=== PATIENT | female | born 1945 | race Caucasian/White ===

== ENCOUNTER → 2018-04-27 | Outpatient (CLI) | payer BC, MEDICARE ==
--- NOTE | 2018-04-28 07:39 | CT ---
EXAMINATION TYPE: CT sinus wo con DATE OF EXAM: 04/27/2018 COMPARISON: NONE HISTORY: VILLATORO WITH PRESSURE AND CONGESTION per patient. Chronic sinusitis per order CT DLP: 644 mGycm. Automated Exposure Control for Dose Reduction was Utilized. TECHNIQUE: CT scan of the sinuses is performed without contrast, axial images are obtained, coronal r eformatted images are also reviewed. FINDINGS: The paranasal sinuses including the frontal, ethmoid, sphenoid, and maxillary sinuses bila terally are well-aerated without abnormal opacification. The ostiomeatal complex is patent bilateral ly on the coronal images. Visualized portion of mastoid air cells show no abnormal opacification. The globes are intact bilate rally. Some vascular calcification distal internal carotid artery supraclinoid segments is present. V isualized brain parenchyma shows mild age-related atrophy and chronic small vessel ischemic change. IMPRESSION: The sinuses are clear and the ostiomeatal complex is patent bilaterally.
== END | disposition home or self-care (01) ==
LOC: RADCTMAIN 18:24
PROVIDERS: ATTEND Family Medicine
DX: J32.9 Chronic sinusitis, unspecified (principal)
CPT/HCPCS: 70486

== ENCOUNTER → 2018-05-30 | Outpatient (CLI) | payer BC, MEDICARE ==
--- NOTE | 2018-05-31 13:38 | MM ---
Reason for exam: screening (asymptomatic). Last mammogram was performed 12 years and 5 months ago. History: Patient is postmenopausal. Benign excisional biopsy of the right breast, March 29, 2000. Benign ultrasound-guided cyst aspiration of the right breast, February 16, 2000. Cyst aspiration of the right breast. Physical Findings: A clinical breast exam by your physician is recommended on an annual basis and results should be correlated with mammographic findings. MG 3D Screening Mammo W/Cad Bilateral CC and MLO view(s) were taken. Prior study comparison: January 04, 2006, CAD bilateral diagnostic mammogram. December 29, 2004, bilateral screening mammogram. The breast tissue is extremely dense which could obscure a lesion on mammography. There is no discrete abnormality. Diffuse bilateral punctate and oil cyst calcifications. ASSESSMENT: Benign, BI-RAD 2 RECOMMENDATION: Routine screening mammogram of both breasts in 1 year. Patient should continue monthly self breast exams. A negative report should not preclude additional follow up of suspicious palpable abnormalities.
== END | disposition home or self-care (01) ==
LOC: RADMAMWWP 13:45
PROVIDERS: ATTEND Family Medicine
DX: Z12.31 Encounter for screening mammogram for malignant neoplasm of breast (principal)
CPT/HCPCS: 77063; 77067

== ENCOUNTER 2019-05-26 23:07 | Inpatient (IN) | payer BC, MEDICARE ==
--- NOTE | 2019-05-26 23:31 | ED ---
GI Bleed HPI - General Chief complaint: GI Bleed Stated complaint: Near Syncope Time Seen by Provider: 05/26/19 23:19 Source: patient, EMS Mode of arrival: EMS Limitations: no limitations - History of Present Illness Initial comments: This patient is 73-year-old woman who presents to be evaluated after she had an episode of coffee-ground emesis tonight. The patient relates that she has been having some mild periumbilical burning for about 3-4 days. She felt that this was due to the fact that she uses Pepcid daily but this was not refilled so she had been out of the medication from May 19 to May 23. The patient felt nauseated tonight and then had an episode of vomiting which contained coffee- ground material. She states it was only one episode of vomiting. She has not noted any change in bowel movements, the last bone she had was yesterday and states that was normal. She is not having symptoms of anemia, including no dyspnea, diaphoresis, chest pain, palpitations or syncope. MD complaint: coffee ground emesis Onset/Timin -: hour(s) Radiation: none Quality: cramping Consistency: constant Improves with: none Worsens with: none Associated Symptoms: abdominal pain, vomiting Treatments Prior to Arrival: none - Related Data Home Medications Medication Instructions Recorded Confirmed Cholecalciferol [Vitamin D3 (25 5,000 unit PO DAILY 05/27/19 05/27/19 Mcg = 1000 Iu)] Magnesium Oxide [Mag-Ox] 250 mg PO BID 05/27/19 05/27/19 Potassium 99 mg PO BID 05/27/19 05/27/19 Ranitidine HCl [Zantac] 150 mg PO BID 05/27/19 05/27/19 Teriparatide [Forteo] 20 mcg SQ DAILY 05/27/19 05/27/19 oxyCODONE-APAP 7.5-325MG [Percocet 1 tab PO Q6H PRN 05/27/19 05/27/19 7.5-325 mg] Allergies Allergy/AdvReac Type Severity Reaction Status Date / Time alendronate sodium Allergy Unknown Verified 05/27/19 00:25 [From Fosamax] erythromycin base Allergy Unknown Verified 05/27/19 00:25 gatifloxacin [From Tequin] Allergy Unknown Verified 05/27/19 00:25 Penicillins Allergy Unknown Verified 05/27/19 00:25 tetracycline Allergy Unknown Verified 05/27/19 00:25 Review of Systems ROS Statement: Those systems with pertinent positive or pertinent negative responses have been documented in the HPI. ROS Other: All systems not noted in ROS Statement are negative. Constitutional: Denies: fever, chills Respiratory: Denies: cough, dyspnea Cardiovascular: Denies: chest pain, palpitations, syncope Gastrointestinal: Reports: as per HPI, abdominal pain, nausea, vomiting, hematemesis. Denies: diarrhea, melena, hematochezia Genitourinary: Denies: dysuria, hematuria Musculoskeletal: Denies: back pain Skin: Denies: rash Neurological: Denies: headache, weakness Hematological/Lymphatic: Denies: easy bleeding Past Medical History Past Medical History: Osteoarthritis (OA) Additional Past Medical History / Comment(s): Emphysema History of Any Multi-Drug Resistant Organisms: None Reported Additional Past Surgical History / Comment(s): Eye surgery Past Psychological History: No Psychological Hx Reported Smoking Status: Current every day smoker Past Alcohol Use History: Rare Past Drug Use History: None Reported General Exam Limitations: no limitations General appearance: alert, in no apparent distress Head exam: Present: atraumatic, normocephalic Eye exam: Present: normal appearance. Absent: scleral icterus, conjunctival injection ENT exam: Present: normal oropharynx Respiratory exam: Present: wheezes (Trace expiratory wheeze.). Absent: respiratory distress, rales, rhonchi, stridor Cardiovascular Exam: Present: regular rate, normal rhythm, systolic murmur (Grade 3/6 systolic ejection murmur). Absent: diastolic murmur, rubs, gallop GI/Abdominal exam: Present: soft. Absent: distended, tenderness, guarding, rebound, rigid Extremities exam: Present: normal inspection, normal capillary refill. Absent: pedal edema, calf tenderness Back exam: Present: normal inspection. Absent: CVA tenderness (R), CVA tenderness (L) Neurological exam: Present: alert Skin exam: Present: warm, dry, intact, normal color. Absent: rash Course Vital Signs 05/26/19 05/27/19 23:08 00:26 Temperature 97.9 F Pulse Rate 98 84 Respiratory 18 17 Rate Blood Pressure 103/61 84/49 O2 Sat by Pulse 100 96 Oximetry Medical Decision Making - Lab Data Result diagrams: 05/26/19 23:20 05/26/19 23:20 Lab Results 05/26/19 05/26/19 05/26/19 Range/Units 23:20 23:20 23:20 WBC 5.9 (3.8-10.6) k/uL RBC 2.11 L (3.80-5.40) m/uL Hgb 6.4 L* (11.4-16.0) gm/dL Hct 20.2 L (34.0-46.0) % MCV 95.3 (80.0-100.0) fL MCH 30.4 (25.0-35.0) pg MCHC 31.9 (31.0-37.0) g/dL RDW 13.5 (11.5-15.5) % Plt Count 185 (150-450) k/uL Neutrophils % 57 % Lymphocytes % 32 % Monocytes % 6 % Eosinophils % 2 % Basophils % 1 % Neutrophils # 3.4 (1.3-7.7) k/uL Lymphocytes # 1.9 (1.0-4.8) k/uL Monocytes # 0.3 (0-1.0) k/uL Eosinophils # 0.1 (0-0.7) k/uL Basophils # 0.0 (0-0.2) k/uL PT (9.0-12.0) sec INR (<1.2) APTT (22.0-30.0) sec Sodium 138 (137-145) mmol/L Potassium 4.2 (3.5-5.1) mmol/L Chloride 106 (98-107) mmol/L Carbon Dioxide 27 (22-30) mmol/L Anion Gap 5 mmol/L BUN 35 H (7-17) mg/dL Creatinine 1.23 H (0.52-1.04) mg/dL Est GFR (CKD-EPI)AfAm 51 (>60 ml/min/1.73 sqM) Est GFR (CKD-EPI)NonAf 44 (>60 ml/min/1.73 sqM) Glucose 110 H (74-99) mg/dL Plasma Lactic Acid Asher 3.0 H* (0.7-2.0) mmol/L Calcium 8.0 L (8.4-10.2) mg/dL Total Bilirubin 0.2 (0.2-1.3) mg/dL AST 30 (14-36) U/L ALT 17 (9-52) U/L Alkaline Phosphatase 55 (38-126) U/L Troponin I (0.000-0.034) ng/mL Total Protein 4.4 L (6.3-8.2) g/dL Albumin 2.5 L (3.5-5.0) g/dL Stool Occult Blood (Negative) Blood Type Blood Type Recheck Antibody Screen Spec Expiration Date 05/26/19 05/26/19 05/26/19 Range/Units 23:20 23:20 23:20 WBC (3.8-10.6) k/uL RBC (3.80-5.40) m/uL Hgb (11.4-16.0) gm/dL Hct (34.0-46.0) % MCV (80.0-100.0) fL MCH (25.0-35.0) pg MCHC (31.0-37.0) g/dL RDW (11.5-15.5) % Plt Count (150-450) k/uL Neutrophils % % Lymphocytes % % Monocytes % % Eosinophils % % Basophils % % Neutrophils # (1.3-7.7) k/uL Lymphocytes # (1.0-4.8) k/uL Monocytes # (0-1.0) k/uL Eosinophils # (0-0.7) k/uL Basophils # (0-0.2) k/uL PT 11.0 (9.0-12.0) sec INR 1.0 (<1.2) APTT 19.4 L (22.0-30.0) sec Sodium (137-145) mmol/L Potassium (3.5-5.1) mmol/L Chloride (98-107) mmol/L Carbon Dioxide (22-30) mmol/L Anion Gap mmol/L BUN (7-17) mg/dL Creatinine (0.52-1.04) mg/dL Est GFR (CKD-EPI)AfAm (>60 ml/min/1.73 sqM) Est GFR (CKD-EPI)NonAf (>60 ml/min/1.73 sqM) Glucose (74-99) mg/dL Plasma Lactic Acid Asher (0.7-2.0) mmol/L Calcium (8.4-10.2) mg/dL Total Bilirubin (0.2-1.3) mg/dL AST (14-36) U/L ALT (9-52) U/L Alkaline Phosphatase (38-126) U/L Troponin I 0.038 H* (0.000-0.034) ng/mL Total Protein (6.3-8.2) g/dL Albumin (3.5-5.0) g/dL Stool Occult Blood Positive H (Negative) Blood Type Blood Type Recheck Antibody Screen Spec Expiration Date 05/26/19 Range/Units 23:20 WBC (3.8-10.6) k/uL RBC (3.80-5.40) m/uL Hgb (11.4-16.0) gm/dL Hct (34.0-46.0) % MCV (80.0-100.0) fL MCH (25.0-35.0) pg MCHC (31.0-37.0) g/dL RDW (11.5-15.5) % Plt Count (150-450) k/uL Neutrophils % % Lymphocytes % % Monocytes % % Eosinophils % % Basophils % % Neutrophils # (1.3-7.7) k/uL Lymphocytes # (1.0-4.8) k/uL Monocytes # (0-1.0) k/uL Eosinophils # (0-0.7) k/uL Basophils # (0-0.2) k/uL PT (9.0-12.0) sec INR (<1.2) APTT (22.0-30.0) sec Sodium (137-145) mmol/L Potassium (3.5-5.1) mmol/L Chloride (98-107) mmol/L Carbon Dioxide (22-30) mmol/L Anion Gap mmol/L BUN (7-17) mg/dL Creatinine (0.52-1.04) mg/dL Est GFR (CKD-EPI)AfAm (>60 ml/min/1.73 sqM) Est GFR (CKD-EPI)NonAf (>60 ml/min/1.73 sqM) Glucose (74-99) mg/dL Plasma Lactic Acid Asher (0.7-2.0) mmol/L Calcium (8.4-10.2) mg/dL Total Bilirubin (0.2-1.3) mg/dL AST (14-36) U/L ALT (9-52) U/L Alkaline Phosphatase (38-126) U/L Troponin I (0.000-0.034) ng/mL Total Protein (6.3-8.2) g/dL Albumin (3.5-5.0) g/dL Stool Occult Blood (Negative) Blood Type O Positive Blood Type Recheck CABO Indicated Antibody Screen NEGATIVE Spec Expiration Date 05/29/20192319 - EKG Data -: EKG Interpreted by Me EKG shows normal: sinus rhythm, axis (Normal), intervals (Normal) Rate: normal (Rate 90 bpm) Interpretation: LVH (With repolarization abnormality) Disposition Clinical Impression: GI bleeding, Anemia, Elevated troponin I level, Lactic acidosis Disposition: ADMITTED IP TO THIS [facility] Condition: Fair
[2019-05-26 23:50] LABS: Albumin 2.5 g/dL (3.5-5.0); Basophils % (A) 1 %; Eosinophils # (A) 0.1 k/uL (0-0.7); Eosinophils % (A) 2 %; HCT 20.2 % (34.0-46.0); Lymphocytes # (A) 1.9 k/uL (1.0-4.8); Lymphocytes % (A) 32 %; MCH 30.4 pg (25.0-35.0); MCHC 31.9 g/dL (31.0-37.0); MCV 95.3 fL (80.0-100.0); Mean Platelet Volume 6.8; Monocytes # (A) 0.3 k/uL (0-1.0); Monocytes % (A) 6 %; Neutrophils # (A) 3.4 k/uL (1.3-7.7); Neutrophils % (A) 57 %; Platelet Count 185 k/uL (150-450); Potassium 4.2 mmol/L (3.5-5.1); RBC 2.11 m/uL (3.80-5.40); RDW 13.5 % (11.5-15.5); Total Bilirubin 0.2 mg/dL (0.2-1.3); Total Protein 4.4 g/dL (6.3-8.2); WBC 5.9 k/uL (3.8-10.6)
[2019-05-26 23:55] LABS: HGB 6.4 gm/dL (11.4-16.0)
[2019-05-26] MEDS ORDERED: PANTOPRAZOLE 40 MG/10 ML VIAL IVP STA (23:59)
[2019-05-27] MEDS ORDERED: ACETAMINOPHEN TAB 325 MG TAB PO PRN (00:01)
[2019-05-27] MEDS ORDERED: NALOXONE 0.4 MG/ML 1 ML VIAL IV PRN (00:01)
[2019-05-27 00:21] LABS: Partial Thromboplastin Time 19.4 sec (22.0-30.0)
[2019-05-27] MEDS: SODIUM CHLORIDE 0.9% 1,000 ML IV SCH ×2 (00:21→16:47)
[2019-05-27] MEDS ORDERED: SODIUM CHLORIDE 0.9% 1,200 ML IV ONE (00:33)
[2019-05-27 06:41] LABS: Basophils % (A) 1 %; Eosinophils # (A) 0.1 k/uL (0-0.7); Eosinophils % (A) 1 %; HCT 22.1 % (34.0-46.0); HGB 7.4 gm/dL (11.4-16.0); Lymphocytes # (A) 1.7 k/uL (1.0-4.8); Lymphocytes % (A) 32 %; MCH 31.3 pg (25.0-35.0); MCHC 33.4 g/dL (31.0-37.0); MCV 93.7 fL (80.0-100.0); Mean Platelet Volume 7.9; Monocytes # (A) 0.3 k/uL (0-1.0); Monocytes % (A) 6 %; Neutrophils % (A) 58 %; Platelet Count 135 k/uL (150-450); RBC 2.36 m/uL (3.80-5.40); WBC 5.2 k/uL (3.8-10.6)
[2019-05-27] MEDS: oxyCODONE-APAP 7.5-325MG 1 EACH TAB PO PRN ×2 (08:23→22:46)
[2019-05-27] MEDS: CHOLECALCIFEROL 1,000 UNIT TAB PO SCH (08:24)
[2019-05-27] MEDS: PANTOPRAZOLE 40 MG/10 ML VIAL IV SCH ×2 (08:24→20:15)
[2019-05-27] MEDS ORDERED: NON-FORMULARY DRUG (Magnesium Oxide 250 MG) PO SCH (09:00)
[2019-05-27] MEDS ORDERED: NON-FORMULARY DRUG (Potassium [Potassium] 99 MG) PO SCH (09:00)
[2019-05-27] MEDS ORDERED: FAMOTIDINE 20 MG TAB PO SCH (09:00)
[2019-05-27] MEDS: Teriparatide [Forteo] 20 MCG SQ SCH (11:37)
[2019-05-27 12:51] LABS: Basophils # (A) 0.1 k/uL (0-0.2); Basophils % (A) 1 %; Eosinophils # (A) 0.1 k/uL (0-0.7); Eosinophils % (A) 1 %; HGB 8.2 gm/dL (11.4-16.0); Lymphocytes # (A) 2.2 k/uL (1.0-4.8); Lymphocytes % (A) 33 %; Mean Platelet Volume 7.6; Monocytes # (A) 0.3 k/uL (0-1.0); Monocytes % (A) 4 %; Neutrophils % (A) 59 %; Platelet Count 147 k/uL (150-450); RBC 2.66 m/uL (3.80-5.40); RDW 15.6 % (11.5-15.5); WBC 6.7 k/uL (3.8-10.6)
--- NOTE | 2019-05-27 13:19 | P.CRDCN ---
History of Present Illness History of present illness: This is a pleasant 73-year-old female past medical history significant for gastroesophageal reflux disease, osteoarthritis and COPD. She has a chronic daily smoker. She denies history of coronary artery disease, hypertension or dyslipidemia. She does not follow with a pierogi maker for any reason. We have been asked to see her in consultation secondary to mildly elevated troponin. She states she has been out of her uvib-add-xeyhpri antiacids for the previous 2 days and she has felt some vague abdominal discomfort that yesterday she had an episode of vomiting. The patient is unsure of the events leading up to this however daughter told her there was blood in the vomit. She is not clear whether it was bright red blood or coffee-ground. ER documentation indicates it was coffee-ground material. This happened just one time and then she came to the hospital. Hemoglobin on arrival was 6.4. She underwent a transfusion of one unit of packed red blood cells repeat hemoglobin this morning was 7.4 and then again this afternoon was 8.2. She denies having symptoms of chest discomfort, shortness of breath, dizziness or palpitations. EKG reveals sinus mechanism with LVH criteria with nonspecific ST modalities. Laboratory data has revealed, sodium 138, potassium 4.2, creatinine 1.23, lactic asked on admission 3.0 with repeat was 0.5, initial troponin was 0.038 second was 0.123. She currently takes no daily cardiac medications. At the time of my exam: CONSTITUTIONAL: Denies fever. Denies chills. EYES: Denies blurred vision. Denies vision changes. Denies eye pain. EARS, NOSE, MOUTH & THROAT: Denies headache. Denies sore throat. Denies ear pain. CARDIOVASCULAR: Denies chest pain. Denies shortness of breath. Denies orthopnea. Denies PND. Denies palpitations. RESPIRATORY: Denies cough. GASTROINTESTINAL: Denies abdominal pain. Denies diarrhea. Denies constipation. Denies nausea. Denies vomiting. MUSCULOSKELETAL: Denies myalgias. INTEGUMENTARY: Denies pruitis. Denies rash. NEUROLOGIC: Denies numbness. Denies tingling. Denies weakness. PSYCHIATRIC: Denies anxiety. Denies depression. ENDOCRINE: Denies fatigue. Denies weight change. Denies polydipsia. Denies polyurina. GENITOURINARY: Denies burning, hematuria or urgency with micturation. HEMATOLOGIC: Denies history of anemia. Denies bleeding. Blood pressure 106/62 heart rate 78 afebrile maintaining oxygen saturation on room air GENERAL: This is a 73-year-old female in no apparent distress at the time of my examination. Frail. HEENT: Head is atraumatic, normocephalic. Pupils are equal, round. Sclerae anicteric. Conjunctivae are clear. Mucous membranes of the mouth are moist. Neck is supple. There is no jugular venous distention. No carotid bruit is heard. LUNGS: Clear to auscultation no wheezes, rales or rhonchi. No chest wall tenderness is noted on palpation or with deep breathing. HEART: Regular rate and rhythm with systolic ejection murmur at the left sternal border, no rubs or gallops. S1 and S2 heard. ABDOMEN: Soft, nontender. Bowel sounds are heard. No organomegaly noted. EXTREMITIES: No evidence of peripheral edema and no calf tenderness noted. VASCULAR: Radial and dorsalis pedis pulses palpated, no evidence of clubbing. NEUROLOGIC: Patient is awake, alert and oriented x3. ASSESSMENT Acute GI bleeding requiring blood transfusion Troponin elevation secondary to acute blood loss anemia causing oxygen supply demand mismatch representing a type II event Systolic murmur History of COPD Chronic nicotine dependence PLAN Patient has no symptoms suggestive of angina. Troponin elevation secondary to acute blood loss anemia representing a type II coronary event supply and demand mismatch. Continue to obtain a third troponin to assess trend. Obtain 2-D echocardiogram and Doppler study to assess cardiac structure and function. Initiated on Lopressor 25 mg twice a day. Check lipid profile. We will continue to follow make recommendations accordingly. Thank you kindly for this consultation. Nurse Practitioner note has been reviewed, I agree with a documented findings and plan of care. Patient was seen and examined. Past Medical History Past Medical History: Osteoarthritis (OA) Additional Past Medical History / Comment(s): Emphysema History of Any Multi-Drug Resistant Organisms: None Reported Additional Past Surgical History / Comment(s): Eye surgery Past Psychological History: No Psychological Hx Reported Smoking Status: Current every day smoker Past Alcohol Use History: Rare Past Drug Use History: None Reported - Past Family History Mother Family Medical History: No Reported History Father Family Medical History: Cancer Medications and Allergies Home Medications Medication Instructions Recorded Confirmed Type Cholecalciferol [Vitamin D3 (25 5,000 unit PO DAILY 05/27/19 05/27/19 History Mcg = 1000 Iu)] Magnesium Oxide [Mag-Ox] 250 mg PO BID 05/27/19 05/27/19 History Potassium 99 mg PO BID 05/27/19 05/27/19 History Ranitidine HCl [Zantac] 150 mg PO BID 05/27/19 05/27/19 History Teriparatide [Forteo] 20 mcg SQ DAILY 05/27/19 05/27/19 History oxyCODONE-APAP 7.5-325MG [Percocet 1 tab PO Q6H PRN 05/27/19 05/27/19 History 7.5-325 mg] Allergies Allergy/AdvReac Type Severity Reaction Status Date / Time alendronate sodium Allergy Unknown Verified 05/27/19 00:25 [From Fosamax] erythromycin base Allergy Unknown Verified 05/27/19 00:25 gatifloxacin [From Tequin] Allergy Unknown Verified 05/27/19 00:25 Penicillins Allergy Unknown Verified 05/27/19 00:25 tetracycline Allergy Unknown Verified 05/27/19 00:25 Physical Exam Vitals: Vital Signs Temp Pulse Pulse Resp BP BP Pulse Ox 05/27/19 08:00 99.2 F 78 18 102/64 98 05/27/19 05:15 99.1 F 81 15 97/61 100 05/27/19 04:00 99.2 F 85 15 96/61 99 05/27/19 03:30 99.2 F 84 15 96/61 98 05/27/19 03:00 99.3 F 88 15 95/62 99 05/27/19 02:50 99.1 F 85 18 90/55 05/27/19 01:05 98.3 F 92 17 106/61 94 L 05/27/19 01:01 97.6 F 88 18 102/62 98 05/27/19 00:26 84 17 84/49 96 05/26/19 23:08 97.9 F 98 18 103/61 100 Intake and Output 05/26/19 05/27/19 05/27/19 22:59 06:59 14:59 Intake Total 640 232 Balance 640 232 Intake: IV 10 Invasive Line 1 10 Intake, IV Titration 320 Amount Sodium Chloride 0.9% 1, 320 000 ml @ 80 mls/hr IV . [id number] [facility] Rx#:[id number] Oral 232 Blood Product 310 Rc As-1 Unit 310 [id number] Other: Voiding Method Toilet # Voids 3 Weight 41.3 kg Results 05/27/19 12:31 05/26/19 23:20 Cardiac Enzymes 05/26/19 05/26/19 Range/Units 23:20 23:20 AST 30 (14-36) U/L Troponin I 0.038 H* (0.000-0.034) ng/mL Coagulation 05/26/19 Range/Units 23:20 PT 11.0 (9.0-12.0) sec APTT 19.4 L (22.0-30.0) sec CBC 05/26/19 05/27/19 Range/Units 23:20 06:20 WBC 5.9 5.2 (3.8-10.6) k/uL RBC 2.11 L 2.36 L (3.80-5.40) m/uL Hgb 6.4 L* 7.4 L (11.4-16.0) gm/dL Hct 20.2 L 22.1 L (34.0-46.0) % Plt Count 185 135 L (150-450) k/uL Comprehensive Metabolic Panel 05/26/19 Range/Units 23:20 Sodium 138 (137-145) mmol/L Potassium 4.2 (3.5-5.1) mmol/L Chloride 106 (98-107) mmol/L Carbon Dioxide 27 (22-30) mmol/L BUN 35 H (7-17) mg/dL Creatinine 1.23 H (0.52-1.04) mg/dL Glucose 110 H (74-99) mg/dL Calcium 8.0 L (8.4-10.2) mg/dL AST 30 (14-36) U/L ALT 17 (9-52) U/L Alkaline Phosphatase 55 (38-126) U/L Total Protein 4.4 L (6.3-8.2) g/dL Albumin 2.5 L (3.5-5.0) g/dL Current Medications Generic Name Dose Route Start Last Admin Trade Name Freq PRN Reason Stop Dose Admin Acetaminophen 650 mg 05/27/19 00:01 Tylenol Tab PO Q6HR PRN Mild Pain or Fever > 100.5 Cholecalciferol 5,000 unit 05/27/19 09:00 05/27/19 08:24 Vitamin D3 (25 Mcg = 1000 Iu) PO 5,000 unit DAILY ANN Administration Famotidine 20 mg 05/27/19 09:00 05/27/19 08:24 Pepcid PO 20 mg BID ANN Administration Sodium Chloride 1,000 mls @ 80 mls/hr 05/27/19 00:15 05/27/19 00:21 Saline 0.9% IV 80 mls/hr .[id number] ANN Administration Naloxone HCl 0.2 mg 05/27/19 00:01 Narcan IV Q2M PRN Opioid Reversal Teriparatide [Forteo 20 mcg 05/27/19 09:00 ] 20 Mcg SQ DAILY ANN Ondansetron HCl 4 mg 05/27/19 00:01 Zofran IVP Q8HR PRN Nausea And Vomiting Oxycodone/Acetaminophen 1 each 05/27/19 00:34 05/27/19 08:23 Percocet 7.5-325 PO 1 each Q6H PRN Administration Pain Pantoprazole Sodium 40 mg 05/27/19 09:00 05/27/19 08:24 Protonix IV 40 mg DAILY ANN Administration Intake and Output 05/26/19 05/27/19 05/27/19 22:59 06:59 14:59 Intake Total 640 232 Balance 640 232 Intake: IV 10 Invasive Line 1 10 Intake, IV Titration 320 Amount Sodium Chloride 0.9% 1, 320 000 ml @ 80 mls/hr IV . [id number] ANN Rx#:[id number] Oral 232 Blood Product 310 Rc As-1 Unit 310 [id number] Other: Voiding Method Toilet # Voids 3 Weight 41.3 kg 05/27/19 06:20 05/26/19 23:20
[2019-05-27 13:45] LABS: Cholesterol 83 mg/dL (<200); HDL Cholesterol 28 mg/dL (40-60); LDL Cholesterol,Calculated 35 mg/dL (0-99); Triglycerides 99 mg/dL (<150)
--- NOTE | 2019-05-27 14:43 | P.HPIM ---
History of Present Illness H&P Date: 05/27/19 Chief Complaint: Coffee-ground emesis History of presenting complaint: This is a pleasant 73-year-old patient of Dr. qiu from [place]. Chronic stable medical conditions include osteoarthritis, emphysema, acid reflux. Patient long-standing smoker. Patient also sometimes takes Advil. Patient yesterday evening had coffee-ground emesis. No fresh blood. No abdominal pain. No fever no chills. No further episode. Patient occasionally takes Advil for arthritis. Does feel a bit tired and rundown. No dizziness or lightheadedness. Patient daughter is present. Admitted for the same. Started on IV fluids. GI was consulted. Review of systems: GEN.: Tired EYES: None HEENT: None NECK: None RESPIRATORY: None CARDIOVASCULAR: None GASTROINTESTINAL: As above GENITOURINARY: None MUSCULOSKELETAL: Pain in the joints LYMPHATICS: None HEMATOLOGICAL: As above PSYCHIATRY: None NEUROLOGICAL: None Past medical history: Osteoarthritis, emphysema, acid reflux Social history: Alcohol occasional. Smokes a pack a day for 55 years. Lives with her daughter. Family history: Reviewed, noncontributory to presentation Physical examination: VITAL SIGNS: 97.9, 98, 18, 103/61, 100% room air GENERAL: BMI 16.7, sitting on bed, tired appearing. EYES: Pupils equal. Conjunctiva palel. HEENT: External appearance of nose and ears normal, oral cavity grossly normal. NECK: JVD not raised; masses not palpable. HEART: First and second heart sounds are normal; no edema. LUNGS: Respiratory rate normal; diminished breath sounds. ABDOMEN: Soft, nontender, liver spleen not palpable, no masses palpable. PSYCH: Alert and oriented x3; mood and affect normal. NEUROLOGICAL: Cranial nerves grossly intact; no facial asymmetry, power and sensation grossly intact. LYMPHATICS: No lymph nodes palpable in the axilla and neck MUSCULOSKELETAL: Positive subcutaneous fat INVESTIGATIONS, reviewed in the clinical context: White count 5.9 hemoglobin 6.4 potassium 4.2 BUN 35 creatinine 1.23 Lactic acid 3 and repeat 0.5 Troponin 0.038, 0.123 Assessment: Acute upper GI bleed in a patient who does smoke and also takes NSAIDs occasionally -Acute acute blood loss anemia though the given the severity of his anemia I suspect they may be chronic blood loss 2 -Primary osteoarthritis -Emphysema and a current smoker -Chronic GERD -Severe protein calorie malnutrition with a BMI of 16.7 -Renal failure, unknown if there is a chronic component -Lactic acidosis likely type II -Troponin positive, likely from hemodynamic mismatch. No evidence of acute coronary syndrome Plan: Patient did get a unit of blood. GI was consulted. They're planning to do endoscopy tomorrow. H&H will be done. PPI started. We'll give IV fluids. Repeat CBC and electrolytes. Also renal ultrasound. Care was discussed with the patient daughter the bedside. Smoke cessation counseling: This was done with the patient. Patient be given a nicotine patch. More than 3 minutes was spent on this. Past Medical History Past Medical History: Osteoarthritis (OA) Additional Past Medical History / Comment(s): Emphysema History of Any Multi-Drug Resistant Organisms: None Reported Additional Past Surgical History / Comment(s): Eye surgery Past Psychological History: No Psychological Hx Reported Smoking Status: Current every day smoker Past Alcohol Use History: Rare Past Drug Use History: None Reported - Past Family History Mother Family Medical History: No Reported History Father Family Medical History: Cancer Medications and Allergies Home Medications Medication Instructions Recorded Confirmed Type Cholecalciferol [Vitamin D3 (25 5,000 unit PO DAILY 05/27/19 05/27/19 History Mcg = 1000 Iu)] Magnesium Oxide [Mag-Ox] 250 mg PO BID 05/27/19 05/27/19 History Potassium 99 mg PO BID 05/27/19 05/27/19 History Ranitidine HCl [Zantac] 150 mg PO BID 05/27/19 05/27/19 History Teriparatide [Forteo] 20 mcg SQ DAILY 05/27/19 05/27/19 History oxyCODONE-APAP 7.5-325MG [Percocet 1 tab PO Q6H PRN 05/27/19 05/27/19 History 7.5-325 mg] Allergies Allergy/AdvReac Type Severity Reaction Status Date / Time alendronate sodium Allergy Unknown Verified 05/27/19 00:25 [From Fosamax] erythromycin base Allergy Unknown Verified 05/27/19 00:25 gatifloxacin [From Tequin] Allergy Unknown Verified 05/27/19 00:25 Penicillins Allergy Unknown Verified 05/27/19 00:25 tetracycline Allergy Unknown Verified 05/27/19 00:25 Physical Exam Vitals: Vital Signs Temp Pulse Pulse Resp BP BP Pulse Ox 07/21/19 12:00 98.9 F 78 18 106/62 99 05/27/19 08:00 99.2 F 78 18 102/64 98 05/27/19 05:15 99.1 F 81 15 97/61 100 05/27/19 04:00 99.2 F 85 15 96/61 99 05/27/19 03:30 99.2 F 84 15 96/61 98 05/27/19 03:00 99.3 F 88 15 95/62 99 05/27/19 02:50 99.1 F 85 18 90/55 05/27/19 01:05 98.3 F 92 17 106/61 94 L 05/27/19 01:01 97.6 F 88 18 102/62 98 05/27/19 00:26 84 17 84/49 96 05/26/19 23:08 97.9 F 98 18 103/61 100 Intake and Output 05/26/19 05/27/19 05/27/19 22:59 06:59 14:59 Intake Total 640 232 Balance 640 232 Intake: IV 10 Invasive Line 1 10 Intake, IV Titration 320 Amount Sodium Chloride 0.9% 1, 320 000 ml @ 80 mls/hr IV . [id number] [facility] Rx#:[id number] Oral 232 Blood Product 310 Rc As-1 Unit 310 [id number] Other: Voiding Method Toilet # Voids 3 Weight 41.3 kg 41.3 kg Results CBC & Chem 7: 05/27/19 12:31 05/26/19 23:20 Labs: Abnormal Lab Results - Last 24 Hours (Table) 05/26/19 05/26/19 05/26/19 Range/Units 23:20 23:20 23:20 RBC 2.11 L (3.80-5.40) m/uL Hgb 6.4 L* (11.4-16.0) gm/dL Hct 20.2 L (34.0-46.0) % RDW (11.5-15.5) % Plt Count (150-450) k/uL APTT (22.0-30.0) sec BUN 35 H (7-17) mg/dL Creatinine 1.23 H (0.52-1.04) mg/dL Glucose 110 H (74-99) mg/dL Plasma Lactic Acid Asher 3.0 H* (0.7-2.0) mmol/L Calcium 8.0 L (8.4-10.2) mg/dL Troponin I (0.000-0.034) ng/mL Total Protein 4.4 L (6.3-8.2) g/dL Albumin 2.5 L (3.5-5.0) g/dL HDL Cholesterol (40-60) mg/dL Stool Occult Blood (Negative) Crossmatch 05/26/19 05/26/19 05/26/19 Range/Units 23:20 23:20 23:20 RBC (3.80-5.40) m/uL Hgb (11.4-16.0) gm/dL Hct (34.0-46.0) % RDW (11.5-15.5) % Plt Count (150-450) k/uL APTT 19.4 L (22.0-30.0) sec BUN (7-17) mg/dL Creatinine (0.52-1.04) mg/dL Glucose (74-99) mg/dL Plasma Lactic Acid Asher (0.7-2.0) mmol/L Calcium (8.4-10.2) mg/dL Troponin I 0.038 H* (0.000-0.034) ng/mL Total Protein (6.3-8.2) g/dL Albumin (3.5-5.0) g/dL HDL Cholesterol (40-60) mg/dL Stool Occult Blood Positive H (Negative) Crossmatch 05/26/19 05/27/19 05/27/19 Range/Units 23:20 03:33 06:20 RBC 2.36 L (3.80-5.40) m/uL Hgb 7.4 L (11.4-16.0) gm/dL Hct 22.1 L (34.0-46.0) % RDW (11.5-15.5) % Plt Count 135 L (150-450) k/uL APTT (22.0-30.0) sec BUN (7-17) mg/dL Creatinine (0.52-1.04) mg/dL Glucose (74-99) mg/dL Plasma Lactic Acid Asher 0.5 L (0.7-2.0) mmol/L Calcium (8.4-10.2) mg/dL Troponin I (0.000-0.034) ng/mL Total Protein (6.3-8.2) g/dL Albumin (3.5-5.0) g/dL HDL Cholesterol (40-60) mg/dL Stool Occult Blood (Negative) Crossmatch See Detail 05/27/19 05/27/19 05/27/19 Range/Units 06:20 06:20 12:31 RBC 2.66 L (3.80-5.40) m/uL Hgb 8.2 L (11.4-16.0) gm/dL Hct 25.0 L (34.0-46.0) % RDW 15.6 H (11.5-15.5) % Plt Count 147 L (150-450) k/uL APTT (22.0-30.0) sec BUN (7-17) mg/dL Creatinine (0.52-1.04) mg/dL Glucose (74-99) mg/dL Plasma Lactic Acid Asher (0.7-2.0) mmol/L Calcium (8.4-10.2) mg/dL Troponin I 0.123 H* (0.000-0.034) ng/mL Total Protein (6.3-8.2) g/dL Albumin (3.5-5.0) g/dL HDL Cholesterol 28 L (40-60) mg/dL Stool Occult Blood (Negative) Crossmatch Thrombosis Risk Factor Assmnt - Choose All That Apply Any of the Below Risk Factors Present?: No Other Risk Factors: Yes Each Risk Factor Represents 2 Points: Age 61-74 years Other congenital or acquired thrombophilia - If yes, enter type in comment: No Thrombosis Risk Factor Assessment Total Risk Factor Score: 2 Thrombosis Risk Factor Assessment Level: Low Risk
--- NOTE | 2019-05-27 15:27 | US ---
EXAMINATION TYPE: US kidneys/renal and bladder DATE OF EXAM: 05/27/2019 COMPARISON: NONE CLINICAL HISTORY: Renal failure: assess for chronicity. Renal failure EXAM MEASUREMENTS: Right Kidney: 10.3 x 3.5 x 3.3 cm Left Kidney: 10.2 x 4.0 x 3.9 cm Right Kidney: no evidence of hydronephrosis Left Kidney: no evidence of hydronephrosis Bladder: appears wnl Bilateral Jets seen: no There is no evidence for hydronephrosis at this point in time. No nephrolithiasis is seen. No juanjose s are identified. The urinary bladder is anechoic. Bilateral ureteral jets are seen. IMPRESSION: No evidence of renal mass or obstruction.
[2019-05-27 18:42] LABS: Basophils # (A) 0.1 k/uL (0-0.2); Basophils % (A) 1 %; Eosinophils # (A) 0.1 k/uL (0-0.7); Eosinophils % (A) 1 %; HCT 24.4 % (34.0-46.0); HGB 7.9 gm/dL (11.4-16.0); Lymphocytes # (A) 1.8 k/uL (1.0-4.8); Lymphocytes % (A) 24 %; MCH 30.6 pg (25.0-35.0); MCHC 32.3 g/dL (31.0-37.0); MCV 94.9 fL (80.0-100.0); Mean Platelet Volume 7.1; Monocytes # (A) 0.3 k/uL (0-1.0); Monocytes % (A) 4 %; Neutrophils # (A) 5.2 k/uL (1.3-7.7); Neutrophils % (A) 68 %; Platelet Count 161 k/uL (150-450); RBC 2.57 m/uL (3.80-5.40); RDW 14.9 % (11.5-15.5); WBC 7.6 k/uL (3.8-10.6)
[2019-05-27] MEDS: METOPROLOL TARTRATE 25 MG TAB PO SCH (20:15)
[2019-05-27] MEDS: PANTOPRAZOLE 40 MG/10 ML VIAL IVP SCH (20:22)
--- NOTE | 2019-05-27 20:49 | P.CONS ---
History of Present Illness - Reason for Consult Consult date: 05/27/19 Anemia, epigastric pain Requesting physician: Kwan Elizabeth - Chief Complaint Abdominal pain - History of Present Illness 73-year-old female with a medical history significant for gastroesophageal reflux disease, emphysema and osteoarthritis who presented to the hospital with complaints of abdominal pain. The patient reports 34 days of pain in the periumbilical region. She describes the pain as sharp in nature and associates it with uncontrolled reflux as she normally takes ranitidine for treatment of her GERD but had been off of the treatment prior to symptoms developing. She also reports one episode of nausea with associated coffee-ground emesis. Denies any change in bowel habits, hematochezia or melena. No bowel movement reported today. She does report taking 1 Advil tablet approximately 2 times per week for treatment of pain. No prior EGD or colonoscopy reported. No history of peptic ulcer disease reported. On presentation hemoglobin was found to be 6.4, currently 8.2 after transfusion. WBC 6.7, platelet count 147,000 and stool did test positive for occult blood. Review of Systems REVIEW OF SYSTEMS: CONSTITUTIONAL: Denies any fevers, chills, weight change or fatigue. CARDIOVASCULAR: Denies any chest pain, palpitations high or low blood pressures RESPIRATORY: Denies any shortness of breath, hemoptysis or cough. GENITOURINARY: No dysuria or hematuria. MUSCULOSKELETAL: No weakness reported. SKIN: Denies any new rashes or lesions, jaundice or pallor. PSYCHIATRIC: Denies any depression or anxiety. NEUROLOGY: Denies headache, denies any new focal deficits. EARS/NOSE/THROAT: No recent hearing change, congestion, nasal discharge or sore throat. EYES: No pain in eyes, discharge or change in vision. GASTROINTESTINAL: As per HPI. Past Medical History Past Medical History: Osteoarthritis (OA) Additional Past Medical History / Comment(s): Emphysema History of Any Multi-Drug Resistant Organisms: None Reported Additional Past Surgical History / Comment(s): Eye surgery Past Psychological History: No Psychological Hx Reported Smoking Status: Current every day smoker Past Alcohol Use History: Rare Past Drug Use History: None Reported - Past Family History Mother Family Medical History: No Reported History Father Family Medical History: Cancer Medications and Allergies Home Medications Medication Instructions Recorded Confirmed Type Cholecalciferol [Vitamin D3 (25 5,000 unit PO DAILY 05/27/19 05/27/19 History Mcg = 1000 Iu)] Magnesium Oxide [Mag-Ox] 250 mg PO BID 05/27/19 05/27/19 History Potassium 99 mg PO BID 05/27/19 05/27/19 History Ranitidine HCl [Zantac] 150 mg PO BID 05/27/19 05/27/19 History Teriparatide [Forteo] 20 mcg SQ DAILY 05/27/19 05/27/19 History oxyCODONE-APAP 7.5-325MG [Percocet 1 tab PO Q6H PRN 05/27/19 05/27/19 History 7.5-325 mg] Allergies Allergy/AdvReac Type Severity Reaction Status Date / Time alendronate sodium Allergy Unknown Verified 05/27/19 00:25 [From Fosamax] erythromycin base Allergy Unknown Verified 05/27/19 00:25 gatifloxacin [From Tequin] Allergy Unknown Verified 05/27/19 00:25 Penicillins Allergy Unknown Verified 05/27/19 00:25 tetracycline Allergy Unknown Verified 05/27/19 00:25 Physical Exam Vitals: Vital Signs Temp Pulse Pulse Resp BP BP Pulse Ox 05/27/19 17:02 100 05/27/19 15:49 98.7 F 77 20 111/64 98 05/27/19 12:00 98.9 F 78 18 106/62 99 05/27/19 08:00 99.2 F 78 18 102/64 98 05/27/19 05:15 99.1 F 81 15 97/61 100 05/27/19 04:00 99.2 F 85 15 96/61 99 05/27/19 03:30 99.2 F 84 15 96/61 98 05/27/19 03:00 99.3 F 88 15 95/62 99 05/27/19 02:50 99.1 F 85 18 90/55 05/27/19 01:05 98.3 F 92 17 106/61 94 L 05/27/19 01:01 97.6 F 88 18 102/62 98 05/27/19 00:26 84 17 84/49 96 05/26/19 23:08 97.9 F 98 18 103/61 100 Intake and Output 05/27/19 05/27/19 05/27/19 06:59 14:59 22:59 Intake Total 640 1344 400 Balance 640 1344 400 Intake: IV 10 Invasive Line 1 10 Intake, IV Titration 320 640 Amount Sodium Chloride 0.9% 1, 320 640 000 ml @ 80 mls/hr IV . [id number] [facility] Rx#:[id number] Oral 704 400 Blood Product 310 Rc As-1 Unit 310 [id number] Other: Voiding Method Toilet # Voids 3 2 Weight 41.3 kg 41.3 kg On physical examination, patient appears comfortable in no apparent distress. HEAD: Normocephalic, atraumatic. EYES: No scleral icterus. No conjunctival injection. MOUTH: No lesions, tongue midline. NECK: Trachea midline, no gross abnormalities. CHEST: Decreased air entry in all lung [place]. HEART: Regular rate and rhythm. ABDOMEN: Soft, thin. Bowel sounds are positive. No organomegaly. No guarding or rigidity. EXTREMITIES: No pedal edema. SKIN: No rashes, no jaundice. NEUROLOGIC: Alert and oriented x3. No focal deficits. Results CBC & Chem 7: 05/27/19 18:16 05/26/19 23:20 Labs: Abnormal Lab Results - Last 24 Hours (Table) 05/26/19 05/26/19 05/26/19 Range/Units 23:20 23:20 23:20 RBC 2.11 L (3.80-5.40) m/uL Hgb 6.4 L* (11.4-16.0) gm/dL Hct 20.2 L (34.0-46.0) % RDW (11.5-15.5) % Plt Count (150-450) k/uL APTT (22.0-30.0) sec BUN 35 H (7-17) mg/dL Creatinine 1.23 H (0.52-1.04) mg/dL Glucose 110 H (74-99) mg/dL Plasma Lactic Acid Asher 3.0 H* (0.7-2.0) mmol/L Calcium 8.0 L (8.4-10.2) mg/dL Troponin I (0.000-0.034) ng/mL Total Protein 4.4 L (6.3-8.2) g/dL Albumin 2.5 L (3.5-5.0) g/dL HDL Cholesterol (40-60) mg/dL Stool Occult Blood (Negative) Crossmatch 05/26/19 05/26/19 05/26/19 Range/Units 23:20 23:20 23:20 RBC (3.80-5.40) m/uL Hgb (11.4-16.0) gm/dL Hct (34.0-46.0) % RDW (11.5-15.5) % Plt Count (150-450) k/uL APTT 19.4 L (22.0-30.0) sec BUN (7-17) mg/dL Creatinine (0.52-1.04) mg/dL Glucose (74-99) mg/dL Plasma Lactic Acid Asher (0.7-2.0) mmol/L Calcium (8.4-10.2) mg/dL Troponin I 0.038 H* (0.000-0.034) ng/mL Total Protein (6.3-8.2) g/dL Albumin (3.5-5.0) g/dL HDL Cholesterol (40-60) mg/dL Stool Occult Blood Positive H (Negative) Crossmatch 05/26/19 05/27/19 05/27/19 Range/Units 23:20 03:33 06:20 RBC 2.36 L (3.80-5.40) m/uL Hgb 7.4 L (11.4-16.0) gm/dL Hct 22.1 L (34.0-46.0) % RDW (11.5-15.5) % Plt Count 135 L (150-450) k/uL APTT (22.0-30.0) sec BUN (7-17) mg/dL Creatinine (0.52-1.04) mg/dL Glucose (74-99) mg/dL Plasma Lactic Acid Asher 0.5 L (0.7-2.0) mmol/L Calcium (8.4-10.2) mg/dL Troponin I (0.000-0.034) ng/mL Total Protein (6.3-8.2) g/dL Albumin (3.5-5.0) g/dL HDL Cholesterol (40-60) mg/dL Stool Occult Blood (Negative) Crossmatch See Detail 05/27/19 05/27/19 05/27/19 Range/Units 06:20 06:20 12:31 RBC 2.66 L (3.80-5.40) m/uL Hgb 8.2 L (11.4-16.0) gm/dL Hct 25.0 L (34.0-46.0) % RDW 15.6 H (11.5-15.5) % Plt Count 147 L (150-450) k/uL APTT (22.0-30.0) sec BUN (7-17) mg/dL Creatinine (0.52-1.04) mg/dL Glucose (74-99) mg/dL Plasma Lactic Acid Asher (0.7-2.0) mmol/L Calcium (8.4-10.2) mg/dL Troponin I 0.123 H* (0.000-0.034) ng/mL Total Protein (6.3-8.2) g/dL Albumin (3.5-5.0) g/dL HDL Cholesterol 28 L (40-60) mg/dL Stool Occult Blood (Negative) Crossmatch 05/27/19 05/27/19 Range/Units 13:51 18:16 RBC 2.57 L (3.80-5.40) m/uL Hgb 7.9 L (11.4-16.0) gm/dL Hct 24.4 L (34.0-46.0) % RDW (11.5-15.5) % Plt Count (150-450) k/uL APTT (22.0-30.0) sec BUN (7-17) mg/dL Creatinine (0.52-1.04) mg/dL Glucose (74-99) mg/dL Plasma Lactic Acid Asher (0.7-2.0) mmol/L Calcium (8.4-10.2) mg/dL Troponin I 0.089 H* (0.000-0.034) ng/mL Total Protein (6.3-8.2) g/dL Albumin (3.5-5.0) g/dL HDL Cholesterol (40-60) mg/dL Stool Occult Blood (Negative) Crossmatch US - abdomen: report reviewed (Renal ultrasound negative for mass or obstruction.) Assessment and Plan (1) Normocytic anemia Narrative/Plan: 73-year-old female with normocytic normochromic anemia on presentation of unknown etiology. Likely on a component of anemia with concern for GI bleeding with the patient reporting some coffee-ground emesis and abdominal pain. Plan is for further evaluation both with extensive labs and endoscopy. Current Visit: Yes Status: Acute Code(s): D64.9 - ANEMIA, UNSPECIFIED SNOMED Code(s): 504689962 (2) GI bleeding Narrative/Plan: No history of prior episodes of GI bleeding. She denies any endoscopic history in the past. She does have a history of reflux for ranitidine twice daily. She is also on Advil therapy which she reports taking twice per week. Current Visit: Yes Status: Acute Code(s): K92.2 - GASTROINTESTINAL HEMORR JACINTO, UNSPECIFIED SNOMED Code(s): 14461320 Plan: Supportive care Okay for liquid diet, nothing by mouth after midnight Continue to monitor hemoglobin and transfuse as needed Continue to monitor stool output Continue Protonix twice daily Plan for EGD for further evaluation in the a.m. Patient will also need colonoscopic evaluation, likely as an outpatient, unless clinical course warrants Avoid NSAID use Thank you for allowing us to participate in the care of the patient we will continue to follow
[2019-05-28 00:55] LABS: Basophils # (A) 0.1 k/uL (0-0.2); Basophils % (A) 1 %; Eosinophils # (A) 0.1 k/uL (0-0.7); Eosinophils % (A) 2 %; HCT 21.7 % (34.0-46.0); Lymphocytes # (A) 1.8 k/uL (1.0-4.8); Lymphocytes % (A) 31 %; MCH 30.4 pg (25.0-35.0); MCHC 32.1 g/dL (31.0-37.0); MCV 94.6 fL (80.0-100.0); Mean Platelet Volume 7.1; Monocytes # (A) 0.3 k/uL (0-1.0); Monocytes % (A) 5 %; Neutrophils # (A) 3.6 k/uL (1.3-7.7); Neutrophils % (A) 59 %; Platelet Count 154 k/uL (150-450)
[2019-05-28 06:31] LABS: Basophils # (A) 0.1 k/uL (0-0.2); Basophils % (A) 1 %; Eosinophils # (A) 0.2 k/uL (0-0.7); Eosinophils % (A) 3 %; HCT 22.6 % (34.0-46.0); HGB 7.1 gm/dL (11.4-16.0); Lymphocytes # (A) 2.1 k/uL (1.0-4.8); Lymphocytes % (A) 36 %; MCHC 31.5 g/dL (31.0-37.0); MCV 95.2 fL (80.0-100.0); Monocytes # (A) 0.3 k/uL (0-1.0); Monocytes % (A) 5 %; Neutrophils # (A) 3.1 k/uL (1.3-7.7); Neutrophils % (A) 53 %; Platelet Count 161 k/uL (150-450); RBC 2.37 m/uL (3.80-5.40); RDW 15.2 % (11.5-15.5); WBC 5.8 k/uL (3.8-10.6)
[2019-05-28 06:32] LABS: Reticulocyte % 2.6 % (0.5-2.0)
[2019-05-28 06:43] LABS: Calcium 8.3 mg/dL (8.4-10.2)
[2019-05-28] MEDS: oxyCODONE-APAP 7.5-325MG 1 EACH TAB PO PRN ×2 (08:37→18:57)
[2019-05-28] MEDS: METOPROLOL TARTRATE 25 MG TAB PO SCH ×2 (08:37→20:20)
[2019-05-28] MEDS: PANTOPRAZOLE 40 MG/10 ML VIAL IV SCH (08:37)
--- NOTE | 2019-05-28 09:14 | CDI ---
Documentation Clarification Form Date: 05/28/2019 9:07:06 AM From: Belem Castillo CCS, CCDS Admit Date: 05/27/2019 12:01:00 AM Patient Name: Latoya Dan Visit Number: [id number] Discharge Date: ATTENTION: The Clinical Documentation Specialists (CDI) and [facility] Coding Staff appreciate your assistance in clarifying documentation. Please respond to the clarification below the line at the bottom and electronically sign. The CDI & [facility] Coding staff will review the response and follow-up if needed. Please note: Queries are made part of the Legal Health Record. If you have any questions, please contact the author of this message via ITS. Dr. Kwan Elizabeth: Per the History & Physical: "Renal failure, unknown if there is a chronic component " History/Risk Factors: Emphysema & daily smoker, GERD, OA. Patients baseline BUN/CR/GFR: unknown or not documented. Clinical Indicators: Presented with acute upper GI bleed requiring blood transfusion with use of NSAIDs. Current BUN/Cr/GFR: 35 / 1. Treatment: Transfused 1 unit PRBCs, IV PPI, IV fluid bolus x1, consults: GI & ID In order to capture the severity of condition, please clarify if the condition signifies: Acute renal failure, Please specify etiology (if known): Acute renal failure ruled out Acute on chronic renal failure (documented as unknown, please specify if suspected, stage if possible) o CKD Stage 1 GFR >90 o CKD Stage 2 GFR 60-89 o CKD Stage 3 GFR 30-59 Other, please specify Unable to determine (Last Revision: February 2018) unable to determine MTDD
[2019-05-28] MEDS: PANTOPRAZOLE 40 MG/10 ML VIAL IVP SCH (09:21)
[2019-05-28 11:26] LABS: Folate, Serum 14.9 ng/mL; Iron Saturation 29.15 (12.00-45.00)
[2019-05-28] MEDS: Teriparatide [Forteo] 20 MCG SQ SCH (12:40)
[2019-05-28] MEDS ORDERED: CYANOCOBALAMIN 1,000 MCG/ML 1 ML VIAL IM ONE (13:22)
--- NOTE | 2019-05-28 13:23 | P.PN ---
Subjective On-call hospitalist covering Dr. duffy. This is a pleasant 79 years old female with past medical history of emphysema and osteoarthritis who presents with coffee ground vomitus and elevated troponins. Also she had bloody bowel movement about 1-2 days prior to admission to the hospital. Patient has no more vomiting or blood in her stool today, or she doesn't have bowel movement since morning. She denies abdominal pain. Also patient was found to have elevated troponin on admission, she has intermittent chest pain on the left side on and off for several years, she had a today about 4/10 in severity, nonspecific nonradiating. Blood pressure 99/53, heart rate 59, afebrile, hemoglobin has been stable since she came in 7.0-7.9, currently 7.1. BMP unremarkable and liver enzymes are not elevated. Troponin is elevated at 0.03 and 0.12. Vitamin B-12 is low at 190. Folate is normal. Iron study showing no iron deficiency. Objective - Vital Signs Vital signs: Vital Signs Temp 98.1 F 05/28/19 12:20 Pulse 59 L 05/28/19 12:20 Resp 17 05/28/19 12:20 BP 99/53 05/28/19 12:20 Pulse Ox 98 05/28/19 12:20 Intake & Output 05/27/19 05/28/19 05/28/19 18:59 06:59 18:59 Intake Total 1744 250 Balance 1744 250 Weight 41.3 kg 38.8 kg Intake: IV 10 0.9 10 Intake, IV Titration 640 Amount Sodium Chloride 0.9% 1, 640 000 ml @ 80 mls/hr IV . [id number] [facility] Rx#:[id number] Oral 1104 240 Other: Voiding Method Toilet # Voids 2 2 1 - Exam -GENERAL: The patient is alert and oriented x3, not in any acute distress. Thin built and cachectic HEENT: Pupils are round and equally reacting to light. EOMI. No scleral icterus. No conjunctival pallor. Normocephalic, atraumatic. No pharyngeal erythema. No thyromegaly. CARDIOVASCULAR: S1 and S2 present. No murmurs, rubs, or gallops. PULMONARY: Chest is clear to auscultation, no wheezing or crackles. ABDOMEN: Soft, nontender, nondistended, normoactive bowel sounds. No palpable organomegaly. MUSCULOSKELETAL: No joint swelling or deformity. EXTREMITIES: No cyanosis, clubbing, or pedal edema. NEUROLOGICAL: Gross neurological examination did not reveal any focal deficits. SKIN: No rashes. - Labs CBC & Chem 7: 05/28/19 05:56 05/28/19 05:56 Labs: Abnormal Lab Results - Last 24 Hours (Table) 05/27/19 05/27/19 05/27/19 Range/Units 06:20 13:51 18:16 RBC 2.57 L (3.80-5.40) m/uL Hgb 7.9 L (11.4-16.0) gm/dL Hct 24.4 L (34.0-46.0) % Retic Count (0.5-2.0) % Chloride (98-107) mmol/L BUN (7-17) mg/dL Calcium (8.4-10.2) mg/dL TIBC (228-460) ug/dL Troponin I 0.089 H* (0.000-0.034) ng/mL HDL Cholesterol 28 L (40-60) mg/dL Vitamin B12 (200.0-944.0) pg/mL 05/28/19 05/28/19 05/28/19 Range/Units 00:19 05:56 05:56 RBC 2.30 L 2.37 L (3.80-5.40) m/uL Hgb 7.0 L 7.1 L (11.4-16.0) gm/dL Hct 21.7 L 22.6 L (34.0-46.0) % Retic Count (0.5-2.0) % Chloride (98-107) mmol/L BUN (7-17) mg/dL Calcium (8.4-10.2) mg/dL TIBC 199 L (228-460) ug/dL Troponin I (0.000-0.034) ng/mL HDL Cholesterol (40-60) mg/dL Vitamin B12 190.0 L (200.0-944.0) pg/mL 05/28/19 05/28/19 Range/Units 05:56 06:02 RBC (3.80-5.40) m/uL Hgb (11.4-16.0) gm/dL Hct (34.0-46.0) % Retic Count 2.6 H (0.5-2.0) % Chloride 112 H (98-107) mmol/L BUN 25 H (7-17) mg/dL Calcium 8.3 L (8.4-10.2) mg/dL TIBC (228-460) ug/dL Troponin I (0.000-0.034) ng/mL HDL Cholesterol (40-60) mg/dL Vitamin B12 (200.0-944.0) pg/mL Assessment and Plan Assessment: Upper GI bleed with coffee ground vomitus. Anemia of chronic disease rather than acute blood loss anemia Elevated troponin. Rule out acute coronary syndrome Vitamin B12 deficiency Plan: This is a pleasant 73 years old female who presents with possible GI bleed and anemia. Also she has B12 deficiency. And elevated troponin. Gastroenterology and cardiology team R following the case. She's going for EGD today. Vitamin B12 is been replaced. Echocardiogram.Labs and medication were reviewed.. Continue same treatment. Continue with symptomatic treatment. Resume home medication. Monitor lytes and vitals. DVT and GI prophylaxis. Further recommendations of the clinical course of the patient DVT prophylaxis: No anticoagulation in view of possible GI bleed GI Prophylaxis: Protonix PT/OT: Pending Prognosis is guarded
--- NOTE | 2019-05-28 13:52 | ECHOF ---
Referral Reason:evaluate murmur MEASUREMENTS -------- HEIGHT: 157.5 cm WEIGHT: 38.6 kg BP: 106/55 RVIDd: 1.8 cm (< 3.3) IVSd: 1.8 cm (0.6 - 1.1) LVIDd: 3.1 cm (3.9 - 5.3) LVPWd: 1.5 cm (0.6 - 1.1) IVSs: 2.1 cm LVIDs: 2.0 cm LVPWs: 1.8 cm Ao Diam: 3.3 cm (2.0 - 3.7) AV Cusp: 2.0 cm (1.5 - 2.6) LA Diam: 2.7 cm (2.7 - 3.8) MV EXCURSION: 10.933 mm (> 18.000) MV EF SLOPE: 47 mm/s (70 - 150) EPSS: 0.4 cm MV E Dharmesh: 1.53 m/s MV DecT: 302 ms MV A Dharmesh: 1.48 m/s MV E/A Ratio: 1.04 FINDINGS -------- Sinus rhythm. This was a technically adequate study. The left ventricular size is normal. There is severe concentric left ventricular hypertrophy. The re is normal global left ventricular contractility. Moderate DEJA with peak LVOT gradient of 71.00mm Hg. LIO noted 1.8cm The right ventricle is normal in size and function. The left atrial size is normal. The right atrium is normal in size. Interatrial and interventricular septum intact. The aortic valve is trileaflet, and appears structurally normal. No aortic stenosis or regurgitation. There is mild aortic valve sclerosis. Normal appearing mitral valve. Mild mitral regurgitation is present. The tricuspid valve appears structurally normal. Trace tricuspid regurgitation present. The pulmonic valve is normal. Trace/mild (physiologic) pulmonic regurgitation. The aortic root, ascending aorta and aortic arch are normal. Normal inferior vena cava with normal inspiratory collapse consistent with estimated right atrial pre ssure of 5 mmHg. The pericardium is normal. There is no pericardial effusion. CONCLUSIONS -------- 1. Sinus rhythm. 2. This was a technically adequate study. 3. The left ventricular size is normal. 4. There is severe concentric left ventricular hypertrophy. 5. There is normal global left ventricular contractility. 6. Moderate DEJA with peak LVOT gradient of 71.00mmHg. 7. The right ventricle is normal in size and function. 8. The left atrial size is normal. 9. The right atrium is normal in size. 10. Interatrial and interventricular septum intact. 11. The aortic valve is trileaflet, and appears structurally normal. No aortic stenosis or regurgitat ion. 12. There is mild aortic valve sclerosis. 13. Normal appearing mitral valve. 14. Mild mitral regurgitation is present. 15. The tricuspid valve appears structurally normal. 16. Trace tricuspid regurgitation present. 17. The pulmonic valve is normal. 18. Trace/mild (physiologic) pulmonic regurgitation. 19. The aortic root, ascending aorta and aortic arch are normal. 20. Normal inferior vena cava with normal inspiratory collapse consistent with estimated right atrial pressure of 5 mmHg. 21. The pericardium is normal. 22. There is no pericardial effusion. HOUSING PROPERTY MANAGER: Phani Hannon RDCS
[2019-05-28] MEDS ORDERED: LIDOCAINE 1% INJ 10MG/ML (20 ML MDV) ONE (14:20)
[2019-05-28] MEDS ORDERED: PROPOFOL 10 MG/ML 20 ML VIAL IV ONE (14:20)
[2019-05-28] MEDS ORDERED: IV FLUID CONTINUATION 950 ML IV ONE (14:21)
--- NOTE | 2019-05-28 14:50 | P.PCN ---
Date of Procedure: 05/28/19 Description of Procedure: BRIEF HISTORY: 73-year-old female with a medical history significant for gastroesophageal reflux disease, emphysema and osteoarthritis who presented to the hospital with complaints of abdominal pain. The patient reports 34 days of pain in the periumbilical region. She describes the pain as sharp in nature and associates it with uncontrolled reflux as she normally takes ranitidine for treatment of her GERD but had been off of the treatment prior to symptoms developing. She also reports one episode of nausea with associated coffee-ground emesis. Denies any change in bowel habits, hematochezia or melena. No bowel movement reported today. She does report taking 1 Advil tablet approximately 2 times per week for treatment of pain. No prior EGD or colonoscopy reported. No history of peptic ulcer disease reported. On presentation hemoglobin was found to be 6.4, currently 8.2 after transfusion. WBC 6.7, platelet count 147,000 and stool did test positive for occult blood. PROCEDURE PERFORMED: Esophagogastroduodenoscopy with biopsy. PREOPERATIVE DIAGNOSIS: Coffee-ground emesis, anemia of acute blood loss. ESTIMATED BLOOD LOSS: Minimal. IV sedation per anesthesia. PROCEDURE: After informed consent was obtained, the patient was brought into the endoscopy unit. IV sedation was administered by Anesthesia under continuous monitoring. Initially the Olympus GIF-190 video endoscope was inserted into the mouth. Esophagus intubated without any difficulty. It was gradually advanced into the stomach and duodenum and carefully examined. The bulb and the second part of the duodenum appeared normal, with biopsies taken. The scope at this time was withdrawn to the stomach, adequately insufflated with air, and upon careful examination, mucosa of the antrum, body, cardia and the fundus a 1 cm cratered nonbleeding antral ulcer without high-risk stigmata for rebleeding was noted and biopsied. Some antral deformity in this area likely related to prior ulcers. Mild gastritis in the antrum and body were also noted with biopsies taken. The scope was then withdrawn into the esophagus. Small hiatal hernia noted. The GE junction was located at 39 cm from the incisors and biopsied in the setting of reflux disease. The esophagus appeared normal, with LA grade a esophagitis noted in the distal esophagus. The procedure well. IMPRESSION: 1. Nonbleeding cratered antral ulcer without high-risk stigmata for rebleeding, biopsied. 2. Gastritis antrum and body, biopsied. 3. Duodenal biopsies. 4. GE junction biopsies. 5. LA grade a esophagitis. RECOMMENDATIONS: The findings of this examination were discussed with the patient. Continue Protonix 40 mg twice a day. Avoid NSAID use. Okay for mechanical soft diet. Patient will need repeat EGD in 8-10 weeks to check for ulcer healing. Patient will also be scheduled for colonoscopy in the outpatient setting.
--- NOTE | 2019-05-28 16:19 | P.PN ---
Subjective Progress Note Date: 05/28/19 This is a pleasant 73-year-old female past medical history significant for gastroesophageal reflux disease, osteoarthritis and COPD. She has a chronic daily smoker. She denies history of coronary artery disease, hypertension or dyslipidemia. 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 We have been asked to see her in consultation secondary to mildly elevated troponin. Echo cardiac gram with Doppler study was performed which revealed severe concentric LVH with normal global left ventricular contractility. No actual documented LV function. Patient had a GI bleed requiring a blood transfusion her hemoglobin today 7.1. She is scheduled to undergo an EGD. Objective - Vital Signs Vital signs: Vital Signs Temp 98.1 F 05/28/19 12:20 Pulse 59 L 05/28/19 12:20 Resp 17 05/28/19 12:20 BP 99/53 05/28/19 12:20 Pulse Ox 98 05/28/19 12:20 Intake & Output 05/27/19 05/28/19 05/28/19 18:59 06:59 18:59 Intake Total 1744 250 150 Balance 1744 250 150 Weight 41.3 kg 38.8 kg Intake: IV 10 150 0.9 10 Intake, IV Titration 640 Amount Sodium Chloride 0.9% 1, 640 000 ml @ 80 mls/hr IV . [id number] [facility] Rx#:[id number] Oral 1104 240 Other: Voiding Method Toilet # Voids 2 2 1 - Exam GENERAL: This is a 73-year-old female in no apparent distress at the time of my examination. Frail. HEENT: Head is atraumatic, normocephalic. Pupils are equal, round. Sclerae anicteric. Conjunctivae are clear. Mucous membranes of the mouth are moist. Neck is supple. There is no jugular venous distention. No carotid bruit is heard. LUNGS: Clear to auscultation no wheezes, rales or rhonchi. No chest wall tenderness is noted on palpation or with deep breathing. HEART: Regular rate and rhythm with systolic ejection murmur at the left sternal border, no rubs or gallops. S1 and S2 heard. ABDOMEN: Soft, nontender. Bowel sounds are heard. No organomegaly noted. EXTREMITIES: No evidence of peripheral edema and no calf tenderness noted. VASCULAR: Radial and dorsalis pedis pulses palpated, no evidence of clubbing. NEUROLOGIC: Patient is awake, alert and oriented x3. - Labs CBC & Chem 7: 05/28/19 05:56 05/28/19 05:56 Labs: Abnormal Lab Results - Last 24 Hours (Table) 05/27/19 05/28/19 05/28/19 Range/Units 18:16 00:19 05:56 RBC 2.57 L 2.30 L (3.80-5.40) m/uL Hgb 7.9 L 7.0 L (11.4-16.0) gm/dL Hct 24.4 L 21.7 L (34.0-46.0) % Retic Count (0.5-2.0) % Chloride (98-107) mmol/L BUN (7-17) mg/dL Calcium (8.4-10.2) mg/dL TIBC 199 L (228-460) ug/dL Vitamin B12 190.0 L (200.0-944.0) pg/mL 05/28/19 05/28/19 05/28/19 Range/Units 05:56 05:56 06:02 RBC 2.37 L (3.80-5.40) m/uL Hgb 7.1 L (11.4-16.0) gm/dL Hct 22.6 L (34.0-46.0) % Retic Count 2.6 H (0.5-2.0) % Chloride 112 H (98-107) mmol/L BUN 25 H (7-17) mg/dL Calcium 8.3 L (8.4-10.2) mg/dL TIBC (228-460) ug/dL Vitamin B12 (200.0-944.0) pg/mL Assessment and Plan Plan: ASSESSMENT and plan #1 Acute GI bleeding requiring blood transfusion #2 non-ST [place] troponin elevation secondary to anemia #3 Systolic murmur #4 History of COPD #5 Chronic nicotine dependence Plan EchoCardiogram with Doppler study was performed which revealed severe concentric LVH with normal global left ventricular contractility, no actual documented ejection fraction, moderateSAM with peak LVOT gradient of 71. From cardiology's perspective, we'll follow this patient along with you now on an as-needed basis only, please don't hesitate to call with any questions. DNP note has been reviewed, I agree with a documented findings and plan of care. Patient was seen and examined.
[2019-05-28] MEDS: PANTOPRAZOLE 40 MG TABLET PO SCH (17:52)
[2019-05-28] MEDS: CHOLECALCIFEROL 1,000 UNIT TAB PO SCH (17:52)
[2019-05-28] MEDS: ONDANSETRON 4 MG/2 ML VIAL IVP PRN ×2 (18:57→20:19)
[2019-05-29] MEDS: oxyCODONE-APAP 7.5-325MG 1 EACH TAB PO PRN ×4 (02:29→23:08)
[2019-05-29] MEDS: PANTOPRAZOLE 40 MG TABLET PO SCH ×2 (06:42→17:03)
[2019-05-29 06:51] LABS: Potassium 4.2 mmol/L (3.5-5.1)
[2019-05-29 06:59] LABS: Basophils % (A) 1 %; Eosinophils # (A) 0.2 k/uL (0-0.7); Eosinophils % (A) 4 %; HCT 21.2 % (34.0-46.0); Lymphocytes # (A) 2.2 k/uL (1.0-4.8); Lymphocytes % (A) 36 %; MCH 30.9 pg (25.0-35.0); MCHC 32.2 g/dL (31.0-37.0); Monocytes # (A) 0.4 k/uL (0-1.0); Monocytes % (A) 6 %; Neutrophils # (A) 3.1 k/uL (1.3-7.7); Neutrophils % (A) 51 %; Platelet Count 162 k/uL (150-450); RBC 2.21 m/uL (3.80-5.40); RDW 15.5 % (11.5-15.5)
[2019-05-29 07:03] LABS: HGB 6.8 gm/dL (11.4-16.0)
[2019-05-29] MEDS: CHOLECALCIFEROL 1,000 UNIT TAB PO SCH (07:58)
[2019-05-29] MEDS: Teriparatide [Forteo] 20 MCG SQ SCH (07:58)
[2019-05-29] MEDS: METOPROLOL TARTRATE 25 MG TAB PO SCH (07:59)
--- NOTE | 2019-05-29 08:32 | CDI ---
Documentation Clarification Form Date: 05/29/2019 8:17:18 AM From: Belem Castillo CCS, CCDS Admit Date: 05/27/2019 12:01:00 AM Patient Name: Latoya Dan Visit Number: [id number] Discharge Date: ATTENTION: The Clinical Documentation Specialists (CDI) and [facility] Coding Staff appreciate your assistance in clarifying documentation. Please respond to the clarification below the line at the bottom and electronically sign. The CDI & [facility] Coding staff will review the response and follow-up if needed. Please note: Queries are made part of the Legal Health Record. If you have any questions, please contact the author of this message via ITS. Dr. Norman Sheppard: Per the 05/27 Cardiology Consult: "Troponin elevation secondary to acute blood loss anemia causing oxygen supply demand mismatch representing a type II event." Per the 05/28 PN: "non-ST [place] troponin elevation secondary to anemia." Per the 05/27 H/P: "Troponin positive, likely from hemodynamic mismatch. No evidence of acute coronary syndrome." Patient History/Risk Factors: OA, Emphysema, GERD, long time smoker. Clinical Indicators: Presented with acute upper GI bleed in a patient who smokes & uses NSAIDs with acute blood loss anemia, status post EGD w/biopsies: Gastritis & non-bleeding antral ulcer. Troponin: 0.038^^, 0.123^^, 0.089^^ EKG Results: R 90 nsr, possible left atrial enlargement, LVH w/repolarization abnormality. Treatment: IV PPI, IV Zofran, IV fluid bolus, EGD w/biopsies. In order to capture the severity of illness, please clarify if the documentation represents any of the following: NSTEMI NSTEMI, please specify type if known: o Type I o Type II o Other Unable to determine Other Condition, please specify (Last Revision: August 2017) NSTEMI, Type II MTDD
--- NOTE | 2019-05-29 09:09 | P.PN ---
Subjective On-call hospitalist covering Dr. duffy. This is a pleasant 79 years old female with past medical history of emphysema and osteoarthritis who presents with coffee ground vomitus and elevated troponins. Also she had bloody bowel movement about 1-2 days prior to admission to the hospital. Patient has no more vomiting or blood in her stool today, or she doesn't have bowel movement since morning. She denies abdominal pain. Also patient was found to have elevated troponin on admission, she has intermittent chest pain on the left side on and off for several years, she had a today about 4/10 in severity, nonspecific nonradiating. Blood pressure 99/53, heart rate 59, afebrile, hemoglobin has been stable since she came in 7.0-7.9, currently 7.1. BMP unremarkable and liver enzymes are not elevated. Troponin is elevated at 0.03 and 0.12. Vitamin B-12 is low at 190. Folate is normal. Iron study showing no iron deficiency. 05/29/2019 Patient lying in bed, not in distress. She denies chest pain, she denies dyspnea or abdominal pain. No nausea vomiting. No bleeding from vomitus or bowel movement. No urinary complaints. Vitas looks stable, however her blood pressure is on the normal low side with 85/39. Heart rate is 67. She is status post EGD yesterday showing no new bleeding gastric ulcer. Her hemoglobin today is down to 6.8. Discussed with the patient with risks benefits and alternative, she agrees for blood transfusion. Electrolytes are normal and creatinine is 1.0. Vitamin B12 was low at 190, replaced. And echo shows LVH. Patient informed with these problems and she understands and all questions were answ ered. Patient was instructed to follow-up the biopsy results of her stomach ulcer on EGD. Risks including but not limited to cancer back are explained to the patient and she verbalized understanding and acceptance Review of systems CONSTITUTIONAL: No fever, no malaise, no fatigue. HEENT: No recent visual problems or hearing problems. Denied any sore throat. CARDIOVASCULAR: No orthopnea, PND, no palpitations, no syncope. PULMONARY: No shortness of breath, no cough, no hemoptysis. GASTROINTESTINAL: No diarrhea, no nausea, no vomiting, no abdominal pain. Normoactive bowel sounds. NEUROLOGICAL: No headaches, no weakness, no numbness. HEMATOLOGICAL: Denies any bleeding or petechiae. GENITOURINARY: Denies any burning micturition, frequency, or urgency. MUSCULOSKELETAL/RHEUMATOLOGICAL: Denies any joint pain, swelling, or any muscle pain. ENDOCRINE: Denies any polyuria or polydipsia. Active Medications Generic Name Dose Route Start Last Admin Trade Name Freq PRN Reason Stop Dose Admin Acetaminophen 650 mg 05/27/19 00:01 Tylenol Tab PO Q6HR PRN Mild Pain or Fever > 100.5 Cholecalciferol 5,000 unit 05/27/19 09:00 05/29/19 07:58 Vitamin D3 (25 Mcg = 1000 Iu) PO 5,000 unit DAILY ANN Administration Cyanocobalamin 1,000 mcg 05/29/19 09:15 Vitamin B-12 IM 05/29/19 09:16 ONCE ONE Metoprolol Tartrate 25 mg 05/27/19 21:00 05/29/19 07:59 Lopressor PO Not Given BID ANN Naloxone HCl 0.2 mg 05/27/19 00:01 Narcan IV Q2M PRN Opioid Reversal Teriparatide [Forteo 20 mcg 05/27/19 09:00 05/29/19 07:58 ] 20 Mcg SQ 20 mcg DAILY ANN Administration Ondansetron HCl 4 mg 05/27/19 00:01 05/28/19 20:19 Zofran IVP 4 mg Q8HR PRN Administration Nausea And Vomiting Oxycodone/Acetaminophen 1 each 05/27/19 00:34 05/29/19 02:29 Percocet 7.5-325 PO 1 each Q6H PRN Administration Pain Pantoprazole Sodium 40 mg 05/28/19 17:30 05/29/19 06:42 Protonix PO 40 mg AC-BID ANN Administration Objective - Vital Signs Vital signs: Vital Signs Temp 97.9 F 05/29/19 07:55 Pulse 67 05/29/19 07:55 Resp 18 05/29/19 07:55 BP 85/39 05/29/19 07:55 Pulse Ox 96 05/29/19 07:55 Intake & Output 05/28/19 05/29/19 05/29/19 18:59 06:59 18:59 Intake Total 372 600 Balance 372 600 Weight 39.2 kg Intake: IV 150 Oral 222 600 Other: Voiding Method Toilet # Voids 3 3 - Exam -GENERAL: The patient is alert and oriented x3, not in any acute distress. Thin built and cachectic HEENT: Pupils are round and equally reacting to light. EOMI. No scleral icterus. No conjunctival pallor. Normocephalic, atraumatic. No pharyngeal erythema. No thyromegaly. CARDIOVASCULAR: S1 and S2 present. No murmurs, rubs, or gallops. PULMONARY: Chest is clear to auscultation, no wheezing or crackles. ABDOMEN: Soft, nontender, nondistended, normoactive bowel sounds. No palpable organomegaly. MUSCULOSKELETAL: No joint swelling or deformity. EXTREMITIES: No cyanosis, clubbing, or pedal edema. NEUROLOGICAL: Gross neurological examination did not reveal any focal deficits. SKIN: No rashes. - Labs CBC & Chem 7: 05/29/19 06:03 05/29/19 06:03 Labs: Abnormal Lab Results - Last 24 Hours (Table) 05/26/19 05/28/19 05/29/19 Range/Units 23:20 05:56 06:03 RBC (3.80-5.40) m/uL Hgb (11.4-16.0) gm/dL Hct (34.0-46.0) % Sodium 136 L (137-145) mmol/L Chloride 108 H (98-107) mmol/L BUN 23 H (7-17) mg/dL Calcium 8.0 L (8.4-10.2) mg/dL TIBC 199 L (228-460) ug/dL Vitamin B12 190.0 L (200.0-944.0) pg/mL Crossmatch See Detail 05/29/19 Range/Units 06:03 RBC 2.21 L (3.80-5.40) m/uL Hgb 6.8 L* (11.4-16.0) gm/dL Hct 21.2 L (34.0-46.0) % Sodium (137-145) mmol/L Chloride (98-107) mmol/L BUN (7-17) mg/dL Calcium (8.4-10.2) mg/dL TIBC (228-460) ug/dL Vitamin B12 (200.0-944.0) pg/mL Crossmatch Assessment and Plan Assessment: Upper GI bleed with coffee ground vomitus. None bleeding gastric antral ulcer Hypotension Anemia of chronic disease in combination with acute blood loss anemia Elevated troponin. Echo: LVH. Vision evaluated by attorney Vitamin B12 deficiency, replaced Combination of gastritis and esophagitis Plan: This is a pleasant 73 years old female who presents with possible GI bleed and anemia. Also she has B12 deficiency, being replaced. And elevated troponin. Gastroenterology and cardiology team R following the case. EGD showing gastric ulcer in patient informed. Vitamin B12 is been replaced. Echocardiogram.Labs and medication were reviewed.. Continue same treatment. Continue with symptomatic treatment. Resume home medication. Monitor lytes and vitals. DVT and GI prophylaxis. Further recommendations of the clinical course of the patient DVT prophylaxis: No anticoagulation in view of possible GI bleed GI Prophylaxis: Protonix PT/OT: Pending Prognosis is guarded patient instructed to follow-up the biopsy results of her EGD. Risk of cancer is explained to the patient and she verbalized understanding and acceptance
[2019-05-29] MEDS ORDERED: CYANOCOBALAMIN 1,000 MCG/ML 1 ML VIAL IM ONE (09:15)
[2019-05-29] MEDS: ONDANSETRON 4 MG/2 ML VIAL IVP PRN (09:52)
--- NOTE | 2019-05-29 10:21 | P.PN ---
Subjective Progress Note Date: 05/29/19 This is a pleasant 73-year-old female past medical history significant for gastroesophageal reflux disease, osteoarthritis and COPD. She has a chronic daily smoker. She denies history of coronary artery disease, hypertension or dyslipidemia. 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 We have been asked to see her in consultation secondary to mildly elevated troponin. Echo cardiac gram with Doppler study was performed which revealed severe concentric LVH with normal global left ventricular contractility. No actual documented LV function. Patient had a GI bleed requiring a blood transfusion her hemoglobin today 7.1. She is scheduled to undergo an EGD. 05/29/2019 EGD was performed yesterday which revealed nonbleeding antral ulcer without high risk stigmata for rebleeding, biopsied. Gastritis, biopsied, white male biopsies GE junction biopsies LA grade a esophagitis. Patient was advised to continue Protonix twice a day and avoid nonsteroidal use. Colonoscopy will be scheduled as an outpatient. Patient was seen and examined this morning, overall she states that she feels well, denies any chest discomfort, her breathing has been stable. Blood pressure running on the low side this morning, 85/30 and 82/40. She is currently on metoprolol 25 mg one tablet by mouth twice a day which we will decrease to 25 mg daily. HemoGlobin this morning down to 6.8, p atient is scheduled to receive a unit of packed red blood cells. Sodium 136, potassium 4.2, BUN 23 and creatinine 1.0. Objective - Vital Signs Vital signs: Vital Signs Temp 97.9 F 05/29/19 07:55 Pulse 67 05/29/19 07:55 Resp 18 05/29/19 07:55 BP 85/39 05/29/19 07:55 Pulse Ox 96 05/29/19 07:55 Intake & Output 05/28/19 05/29/19 05/29/19 18:59 06:59 18:59 Intake Total 372 600 240 Balance 372 600 240 Weight 39.2 kg Intake: IV 150 Oral 222 600 240 Blood Product 0 Rc As-1 Unit 0 [id number] Other: Voiding Method Toilet # Voids 3 3 - Exam GENERAL: This is a 73-year-old female in no apparent distress at the time of my examination. Frail. HEENT: Head is atraumatic, normocephalic. Pupils are equal, round. Sclerae anicteric. Conjunctivae are clear. Mucous membranes of the mouth are moist. Neck is supple. There is no jugular venous distention. No carotid bruit is heard. LUNGS: Clear to auscultation no wheezes, rales or rhonchi. No chest wall tenderness is noted on palpation or with deep breathing. HEART: Regular rate and rhythm with systolic ejection murmur at the left sternal border, no rubs or gallops. S1 and S2 heard. ABDOMEN: Soft, nontender. Bowel sounds are heard. No organomegaly noted. EXTREMITIES: No evidence of peripheral edema and no calf tenderness noted. VASCULAR: Radial and dorsalis pedis pulses palpated, no evidence of clubbing. NEUROLOGIC: Patient is awake, alert and oriented x3. - Labs CBC & Chem 7: 05/29/19 06:03 05/29/19 06:03 Labs: Abnormal Lab Results - Last 24 Hours (Table) 05/26/19 05/28/19 05/29/19 Range/Units 23:20 05:56 06:03 RBC (3.80-5.40) m/uL Hgb (11.4-16.0) gm/dL Hct (34.0-46.0) % Sodium 136 L (137-145) mmol/L Chloride 108 H (98-107) mmol/L BUN 23 H (7-17) mg/dL Calcium 8.0 L (8.4-10.2) mg/dL TIBC 199 L (228-460) ug/dL Vitamin B12 190.0 L (200.0-944.0) pg/mL Crossmatch See Detail 05/29/19 Range/Units 06:03 RBC 2.21 L (3.80-5.40) m/uL Hgb 6.8 L* (11.4-16.0) gm/dL Hct 21.2 L (34.0-46.0) % Sodium (137-145) mmol/L Chloride (98-107) mmol/L BUN (7-17) mg/dL Calcium (8.4-10.2) mg/dL TIBC (228-460) ug/dL Vitamin B12 (200.0-944.0) pg/mL Crossmatch Assessment and Plan Plan: ASSESSMENT and plan #1 Acute GI bleeding requiring blood transfusion #2 non-ST [place] troponin elevation secondary to anemia #3 Systolic murmur #4 History of COPD #5 Chronic nicotine dependence Plan EchoCardiogram with Doppler study was performed which revealed severe concentric LVH with normal global left ventricular contractility, no actual documented ejection fraction, moderate DEJA with peak LVOT gradient of 71. Hemoglobin down to 6.8 this morning, patient is scheduled to receive a unit of packed red blood cells. Blood pressure in the 80s systolic, we'll decrease the dose of beta gisella to 25 mg daily. DNP note has been reviewed, I agree with a documented findings and plan of care. Patient was seen and examined.
--- NOTE | 2019-05-29 12:22 | P.PN ---
Subjective Progress Note Date: 05/29/19 Principal diagnosis: Coffee-ground emesis acute blood loss anemia Admitted with anemia coffee-ground emesis status post EGD yesterday with findings of nonbleeding cratered antral ulcer gastritis LA grade A esophagitis. Hemoglobin 6.8. BUN 23. Creatinine 1.0. No active bleeding. Mild discomfort to the left upper quadrant. Tolerating regular diet. Objective - Vital Signs Vital signs: Vital Signs Temp 98.2 F 05/29/19 10:54 Pulse 58 L 05/29/19 10:54 Resp 18 05/29/19 10:54 BP 95/56 05/29/19 10:54 Pulse Ox 97 05/29/19 10:54 Intake & Output 05/28/19 05/29/19 05/29/19 18:59 06:59 18:59 Intake Total 372 600 240 Balance 372 600 240 Weight 39.2 kg Intake: IV 150 Oral 222 600 240 Blood Product 0 Rc As-1 Unit 0 [id number] Other: Voiding Method Toilet # Voids 3 3 2 - Exam General appearance: The patient is alert, oriented, in no acute distress. HET: Head is normocephalic and atraumatic. Pupils are equal and reactive. Oropharynx is clear without lesions. Neck: Supple without lymphadenopathy. Trachea midline. Heart: S1 S2. Regular rate and rhythm. Lungs: No crackles or wheezes are heard. Abdomen: Soft, nontender, nondistended with bowel sounds. No peritoneal signs. No palpable organomegaly or masses. Extremities: Normal skin color and turgor. No cyanosis, rash, ulceration, clubbing, or edema. Radial and pedal pulses are 2/4 bilaterally. Neurological: No focal deficits. Strength and sensation are grossly intact. - Labs CBC & Chem 7: 05/29/19 06:03 05/29/19 06:03 Labs: Abnormal Lab Results - Last 24 Hours (Table) 05/26/19 05/29/19 05/29/19 Range/Units 23:20 06:03 06:03 RBC 2.21 L (3.80-5.40) m/uL Hgb 6.8 L* (11.4-16.0) gm/dL Hct 21.2 L (34.0-46.0) % Sodium 136 L (137-145) mmol/L Chloride 108 H (98-107) mmol/L BUN 23 H (7-17) mg/dL Calcium 8.0 L (8.4-10.2) mg/dL Crossmatch See Detail Assessment and Plan (1) Antral ulcer Current Visit: Yes Status: Acute Code(s): K25.9 - GASTRIC ULCER, UNSP ACUTE OR CHRONIC, W/O HEMOR OR PERF SNOMED Code(s): 1993651424833 (2) GI bleed Current Visit: Yes Status: Acute Code(s): K92.2 - GASTROINTESTINAL HEMORRHAGE, UNSPECIFIED SNOMED Code(s): 50737700 (3) Acute blood loss anemia Current Visit: Yes Status: Acute Code(s): D62 - ACUTE POSTHEMORRHAGIC ANEMIA SNOMED Code(s): 045760730 Plan: 1. Patient receiving 1 unit of blood. Continue to monitor CBC and electrolytes daily. Protonix 40 mg twice daily. Assessment and plan a care discussed with Dr. Bedolla
[2019-05-30] MEDS: PANTOPRAZOLE 40 MG TABLET PO SCH (06:57)
[2019-05-30] MEDS ORDERED: SENNOSIDES 8.6 MG TAB PO PRN (07:42)
[2019-05-30] MEDS: CHOLECALCIFEROL 1,000 UNIT TAB PO SCH (07:52)
[2019-05-30] MEDS ORDERED: CYANOCOBALAMIN 1,000 MCG/ML 1 ML VIAL IM ONE (07:52)
[2019-05-30] MEDS: Teriparatide [Forteo] 20 MCG SQ SCH (07:52)
[2019-05-30 07:56] VITALS: TEMP 98.1
[2019-05-30] MEDS: oxyCODONE-APAP 7.5-325MG 1 EACH TAB PO PRN (07:58)
[2019-05-30 07:59] LABS: Calcium 8.1 mg/dL (8.4-10.2); Potassium 4.4 mmol/L (3.5-5.1)
[2019-05-30 08:05] LABS: Anisocytosis Slight; Basophils # (A) 0.1 k/uL (0-0.2); Basophils % (A) 1 %; Eosinophils # (A) 0.3 k/uL (0-0.7); Eosinophils % (A) 5 %; HCT 29.8 % (34.0-46.0); Lymphocytes # (A) 2.2 k/uL (1.0-4.8); Lymphocytes % (A) 41 %; MCH 31.5 pg (25.0-35.0); MCHC 32.8 g/dL (31.0-37.0); Mean Platelet Volume 7.6; Monocytes # (A) 0.4 k/uL (0-1.0); Monocytes % (A) 6 %; Neutrophils # (A) 2.4 k/uL (1.3-7.7); Neutrophils % (A) 45 %; Platelet Count 154 k/uL (150-450); RDW 16.8 % (11.5-15.5); WBC 5.4 k/uL (3.8-10.6)
[2019-05-30 08:08] LABS: HGB 9.8 gm/dL (11.4-16.0)
[2019-05-30] MEDS ORDERED: SENNOSIDES 8.6 MG TAB PO SCH (09:00)
[2019-05-30] MEDS ORDERED: METOPROLOL TARTRATE 25 MG TAB PO SCH (09:00)
[2019-05-30 10:15] VITALS: BMI 16.2
[2019-05-30 11:41] VITALS: BP 100/57; PULSE 55; RESP 16
== END 2019-05-30 15:32 | disposition home or self-care (01) | DRG 377 ==
LOC: EC 23:07 → 3SCARD 05-27 00:01
PROVIDERS: ADMIT Hospitalist; ATTEND Hospitalist
PROC: 0DB78ZX Excision of Stomach, Pylorus, Via Natural or Artificial Opening Endoscopic, Diagnostic (ICD-10-PCS; principal; 2019-05-28 07:30)
DX: K25.4 Chronic or unspecified gastric ulcer with hemorrhage (principal); I21.A1 Myocardial infarction type 2; E43 Unspecified severe protein-calorie malnutrition; D62 Acute posthemorrhagic anemia; E87.2 Acidosis; Z68.1 Body mass index [BMI] 19.9 or less, adult; F17.210 Nicotine dependence, cigarettes, uncomplicated; E53.8 Deficiency of other specified B group vitamins; Z71.6 Tobacco abuse counseling; K21.0 Gastro-esophageal reflux disease with esophagitis; K29.70 Gastritis, unspecified, without bleeding; K44.9 Diaphragmatic hernia without obstruction or gangrene; M19.90 Unspecified osteoarthritis, unspecified site; N19 Unspecified kidney failure; Z79.899 Other long term (current) drug therapy; R01.1 Cardiac murmur, unspecified; Z88.1 Allergy status to other antibiotic agents; Z88.8 Allergy status to other drugs, medicaments and biological substances
CPT/HCPCS: 36415; 43239; 76770; 80048; 80053; 80061; 82272; 82607; 82728; 82746; 83540; 83550; 83605; 84484; 85025; 85045; 85610; 85730; 86850; 86900; 86901; 86920; 88305; 93005; 93306; 96374; 99285

== ENCOUNTER → 2019-07-17 | Outpatient (CLI) | payer BC, MEDICARE ==
--- NOTE | 2019-07-17 09:25 | MM ---
Reason for exam: screening (asymptomatic). Last mammogram was performed 1 year and 2 months ago. History: Patient is postmenopausal. Benign excisional biopsy of the right breast, March 29, 2000. Benign ultrasound-guided cyst aspiration of the right breast, February 16, 2000. Cyst aspiration of the right breast. Physical Findings: A clinical breast exam by your physician is recommended on an annual basis and results should be correlated with mammographic findings. MG 3D Screening Mammo W/Cad Bilateral CC and MLO view(s) were taken. Prior study comparison: May 30, 2018, bilateral MG 3d screening mammo w/cad. January 04, 2006, CAD bilateral diagnostic mammogram. The breast tissue is extremely dense which could obscure a lesion on mammography. Benign appearing bilateral calcifications. No suspicious abnormality. No significant changes when compared with prior studies. ASSESSMENT: Benign, BI-RAD 2 RECOMMENDATION: Routine screening mammogram of both breasts in 1 year.
== END | disposition home or self-care (01) ==
LOC: RADMAMWWP 07:43
PROVIDERS: ATTEND Family Medicine
DX: Z12.31 Encounter for screening mammogram for malignant neoplasm of breast (principal)
CPT/HCPCS: 77063; 77067

== ENCOUNTER 2019-07-26 08:29 | Day surgery (SDC) | payer BC, MEDICARE ==
[2019-07-24 16:37] VITALS: BMI 16.5
[~2019-07-26 08:29] MED LIST: LACTATED RINGERS 1,000 ML IV SCH; LIDOCAINE 1% 20 ML VIAL (10MG/ML) FOR IV START INTRADERMA PRN
[2019-07-26 08:58] VITALS: TEMP 98.6
[2019-07-26] MEDS ORDERED: PROPOFOL 10 MG/ML 20 ML VIAL IV ONE (09:12)
[2019-07-26] MEDS ORDERED: LIDOCAINE 1% INJ 10MG/ML (20 ML MDV) ONE (09:12)
--- NOTE | 2019-07-26 10:14 | P.PCN ---
Date of Procedure: 07/26/19 Description of Procedure: Brief history: Patient is a pleasant scheduled for an elective upper endoscopy as well as colonoscopy as a part of evaluation of history of ulcer and deficiency anemia. She was seen in the hospital in May with complaints of coffee-ground emesis and was found to be anemic with EGD performed significant for an antral ulcer, gastritis and esophagitis. Patient did have a significant iron deficiency anemia at that time and had been taking ibuprofen she is now on Protonix daily. Procedure performed: Esophagogastroduodenoscopy with biopsy Colonoscopy with polypectomy Estimated blood loss: Minimal. Preoperative diagnosis: Anesthesia: MAC Procedure: After informed consent was obtained from the patient was brought into the endoscopy unit and IV sedation was administered by anesthesia under continuous monitoring. Initially upper endoscopy was done. The Olympus GF 190 video endoscope was inserted inserted into the mouth and esophagus intubated without any difficulty and was gradually advanced into the stomach and duodenum and carefully examined. The bulb and second part of the duodenum appeared normal, with biopsies taken. The scope was then withdrawn into the stomach adequately insufflated with air and upon careful examination the antrum and body, cardia and fundus appeared normal except for some mild scattered erythema suggestive of mild gastritis of the antrum and body with abscesses taken. Previously seen antral ulcer was well-healed. The scope was then withdrawn into the esophagus. Small hiatal hernia noted. The GE junction was located at 38 cm to the incisors. It appeared regular with no erythema erosions or ulcerations. Rest of the esophagus appeared normal. Patient tolerated the procedure well. At this time the patient continued to remain sedation. Initial digital rectal examination was normal. Olympus CF 190 video colonoscope was then inserted into the rectum and gradually advanced to the cecum without any difficulty. Careful examination was performed as the scope was gradually being withdrawn. The prep was excellent. The cecum, ascending colon, transverse colon, descending colon, sigmoid colon and rectum appeared normal. One diminutive cecal polyp measuring 2 mm removed with cold forceps and one diminutive descending colon polyp removed with cold forcep. Colon was somewhat dilated and tortuous. Mild left-sided diverticulosis. Retroflexion was performed in the rectum and no lesions were noted. Patient tolerated the procedure well. Impression: 1. Well-healed antral ulcer. Mild gastritis antrum and body, biopsied. Small hiatal hernia. Well-healed esophagitis. Duodenal biopsies. 2. 2 diminutive polyps removed with cold forceps from the cecum and descending colon. Mild left-sided diverticulosis. Colono dilated and tortuous. Recommendations: Findings of this examination were discussed with the patient as well as her daughter. Await pathology from biopsies/polypectomies. Dysphagia repeat colonoscopy in 5 years pending pathology from polypectomies. Okay to resume medications.
[2019-07-26 10:18] VITALS: RESP 18
[2019-07-26 10:59] VITALS: BP 156/73; PULSE 68
== END 2019-07-26 11:12 | disposition home or self-care (01) ==
LOC: ORWHC2ENDO 08:29
PROVIDERS: ATTEND Internal Medicine
DX: D12.0 Benign neoplasm of cecum (principal); K63.5 Polyp of colon; D50.9 Iron deficiency anemia, unspecified; K29.50 Unspecified chronic gastritis without bleeding; K44.9 Diaphragmatic hernia without obstruction or gangrene; K57.30 Diverticulosis of large intestine without perforation or abscess without bleeding; K59.39 Other megacolon; Q43.9 Congenital malformation of intestine, unspecified; I10 Essential (primary) hypertension; J44.9 Chronic obstructive pulmonary disease, unspecified; F17.200 Nicotine dependence, unspecified, uncomplicated; M06.9 Rheumatoid arthritis, unspecified; Z80.0 Family history of malignant neoplasm of digestive organs; Z88.0 Allergy status to penicillin; Z88.1 Allergy status to other antibiotic agents; Z79.891 Long term (current) use of opiate analgesic; Z79.899 Other long term (current) drug therapy; Z98.51 Tubal ligation status; Z98.890 Other specified postprocedural states; Z88.8 Allergy status to other drugs, medicaments and biological substances
CPT/HCPCS: 88305; 43239; 45380; J2001; J2704

== ENCOUNTER 2020-05-08 15:04 | Inpatient (IN) | payer BC, MEDICARE ==
--- NOTE | 2020-05-08 14:41 | CT ---
EXAMINATION TYPE: CT ChestAbdPelvis wo con DATE OF EXAM: 05/08/2020 COMPARISON: HISTORY: ABDOMINAL PAIN AND DISTENTION CT DLP: 624mGycm Unenhanced CT of the Chest, Abdomen and Pelvis Unenhanced CT of the chest ,abdomen and pelvis is performed. The lack of intravenous contrast limits evaluation of the solid and hollow viscera. Oral contrast: Yes CT Chest: LUNGS: Mild emphysematous changes noted. The lungs are clear and free of infiltrate or atelectasis. No pulmonary nodule or mass is detected. No pleural effusion or CT evidence of interstitial lung dis ease. MEDIASTINUM: Thoracic aorta is of normal caliber. The heart is not enlarged. No evidence for media stinal mass or adenopathy. HILAR STRUCTURES: No evidence for mass. No hilar adenopathy is appreciated. OTHER: No significant abnormality. CONTRAST CT ABDOMEN AND PELVIS: LIVER/GB: No calcified gallstones. Renal cystic changes identified. Biliary tree is of normal calib er. PANCREAS: No inflammation. No distinct mass. SPLEEN: No splenic enlargement. No lesion seen. ADRENALS: No nodule. No thickening. KIDNEYS/BLADDER: No hydronephrosis. No nephrolithiasis. No disctinct renal mass. BOWEL: Dilated small bowel measuring up to 3.2 cm with air-fluid level seen. There is a right incarce rated inguinal hernia noted. No evidence for perforation. Decompressed large bowel. GENITAL ORGANS: No gross abnormality. LYMPH NODES: No greater than 1cm abdominal or pelvic lymph nodes areappreciated. AORTA: No significant abnormality. OSSEOUS STRUCTURES: No significant abnormality is seen. OTHER: No significant additional abnormality is seen. IMPRESSION: 1. Small bowel obstruction felt to be secondary to incarcerated right inguinal hernia.
[2020-05-08] MEDS ORDERED: SODIUM CHLORIDE 0.9% 1,000 ML IV STA (15:24)
--- NOTE | 2020-05-08 15:25 | ED ---
Recheck HPI - General Chief Complaint: Abdominal Pain Stated Complaint: abnormal CT read Time Seen by Provider: 05/08/20 15:13 Source: patient, RN notes reviewed, old records reviewed Mode of arrival: wheelchair Limitations: no limitations - History of Present Illness Initial Comments: This is a 74-year-old female DF for evaluation presents today for evaluation regards to abdominal pain severe abdominal pain. Patient outpatient CT and was referred to emergency department for abnormal findings. Patient having abdominal pain with nausea vomiting. No fevers no recent bowel movement MD Complaint: wound re-check -: days(s) Returns Today for: Called Because of Abnormal Lab/Test (Abnormal computed tomography scan showing small bowel obstruction) Symptoms Since Prior Visit: worsening pain Context: called for abnormal lab result (Abnormal computed tomography scan) Associated Symptoms: nausea, abdominal pain - Related Data Home Medications Medication Instructions Recorded Confirmed Cholecalciferol [Vitamin D3 (25 5,000 unit PO DAILY 05/27/19 07/26/19 Mcg = 1000 Iu)] Magnesium Oxide [Mag-Ox] 250 mg PO BID 05/27/19 07/26/19 Potassium 99 mg PO BID 05/27/19 07/26/19 Teriparatide [Forteo] 20 mcg SQ DAILY 05/27/19 07/26/19 oxyCODONE-APAP 7.5-325MG [Percocet 1 tab PO Q6H PRN 05/27/19 07/26/19 7.5-325 mg] Ferrous Sulfate [Feosol] 325 mg PO DAILY 07/24/19 07/26/19 Previous Rx's Medication Instructions Recorded Metoprolol Tartrate [Lopressor] 25 mg PO DAILY #30 tab 05/30/19 Pantoprazole [Protonix] 40 mg PO AC-BID #60 tablet. 05/30/19 Allergies Allergy/AdvReac Type Severity Reaction Status Date / Time alendronate sodium Allergy Unknown Verified 05/08/20 15:07 [From Fosamax] erythromycin base Allergy Unknown Verified 05/08/20 15:07 gatifloxacin [From Tequin] Allergy Unknown Verified 05/08/20 15:07 Penicillins Allergy Unknown Verified 05/08/20 15:07 tetracycline Allergy Unknown Verified 05/08/20 15:07 Review of Systems ROS Statement: Those systems with pertinent positive or pertinent negative responses have been documented in the HPI. ROS Other: All systems not noted in ROS Statement are negative. Past Medical History Past Medical History: COPD, Hypertension, Rheumatoid Arthritis (RA) Additional Past Medical History / Comment(s): bleeding ulcer History of Any Multi-Drug Resistant Organisms: None Reported Past Surgical History: Tubal Ligation Additional Past Surgical History / Comment(s): Eye surgery Past Anesthesia/Blood Transfusion Reactions: No Reported Reaction Past Psychological History: No Psychological Hx Reported Smoking Status: Current every day smoker - Past Family History Mother Family Medical History: No Reported History Father Family Medical History: Cancer General Exam Limitations: no limitations General appearance: alert, in no apparent distress Head exam: Present: atraumatic, normocephalic, normal inspection Eye exam: Present: normal appearance, PERRL, EOMI. Absent: scleral icterus, conjunctival injection, periorbital swelling ENT exam: Present: normal exam, mucous membranes moist Neck exam: Present: normal inspection. Absent: tenderness, meningismus, lymphadenopathy Respiratory exam: Present: normal lung sounds bilaterally. Absent: respiratory distress, wheezes, rales, rhonchi, stridor Cardiovascular Exam: Present: regular rate, normal rhythm, normal heart sounds. Absent: systolic murmur, diastolic murmur, rubs, gallop, clicks GI/Abdominal exam: Present: soft, normal bowel sounds. Absent: distended, tenderness, guarding, rebound, rigid Extremities exam: Present: normal inspection, full ROM, normal capillary refill. Absent: tenderness, pedal edema, joint swelling, calf tenderness Back exam: Present: normal inspection Neurological exam: Present: alert, oriented X3, CN II-XII intact Psychiatric exam: Present: normal affect, normal mood Skin exam: Present: warm, dry, intact, normal color. Absent: rash Course Vital Signs 05/08/20 15:04 Temperature 98.4 F Pulse Rate 81 Respiratory 16 Rate Blood Pressure 102/62 O2 Sat by Pulse 98 Oximetry - Reevaluation(s) Reevaluation #1: 05/08/20 15:[address] record and outpatient CT reviewed Reevaluation #2: 05/08/20 15:43 Patient is resting comfortably Reevaluation #3: 05/08/20 15:43 Patient is a known positive COVID diagnosis 05/08/20 15:43 Medical Decision Making - Medical Decision Making 74 male DF with abdominal pain incarcerated abdominal hernia with small bowel obstruction - Lab Data Result diagrams: 05/08/20 13:00 Lab Results 05/08/20 Range/Units 13:00 BUN 61 H (7-17) mg/dL Creatinine 2.08 H (0.52-1.04) mg/dL Est GFR (CKD-EPI)AfAm 27 (>60 ml/min/1.73 sqM) Est GFR (CKD-EPI)NonAf 23 (>60 ml/min/1.73 sqM) - Radiology Data Radiology results: report reviewed (CT head and pelvis positive for incarcerated hernia with small bowel obstruction), image reviewed Disposition Clinical Impression: Abdominal pain, SBO (small bowel obstruction), Abdominal hernia, COVID-19 Disposition: ADMITTED IP TO THIS HOSP Condition: Fair Is patient prescribed a controlled substance at d/c from ED?: No Referrals: Ancelmo Barba MD [Primary Care Provider] - 1-2 days
[2020-05-08] MEDS ORDERED: MORPHINE SULFATE 4 MG/ML SYRINGE IVP STA (15:38)
[2020-05-08] MEDS ORDERED: PANTOPRAZOLE 40 MG/10 ML VIAL IVP STA (15:38)
[2020-05-08] MEDS ORDERED: ONDANSETRON 4 MG/2 ML VIAL IVP STA (15:38)
[2020-05-08] MEDS ORDERED: ONDANSETRON 4 MG/2 ML VIAL IVP PRN (15:38)
[2020-05-08 16:07] LABS: Basophils % (A) 1 %; Eosinophils # (A) 0.1 k/uL (0-0.7); Eosinophils % (A) 3 %; HCT 40.7 % (34.0-46.0); HGB 13.2 gm/dL (11.4-16.0); Lymphocytes # (A) 0.9 k/uL (1.0-4.8); Lymphocytes % (A) 17 %; MCH 31.4 pg (25.0-35.0); MCHC 32.5 g/dL (31.0-37.0); MCV 96.6 fL (80.0-100.0); Monocytes # (A) 0.5 k/uL (0-1.0); Monocytes % (A) 9 %; Neutrophils % (A) 69 %; Platelet Count 253 k/uL (150-450); RBC 4.22 m/uL (3.80-5.40); RDW 12.2 % (11.5-15.5); WBC 5.7 k/uL (3.8-10.6)
[2020-05-08 16:16] LABS: INR 0.9 (<1.2); Partial Thromboplastin Time 23.5 sec (22.0-30.0); Prothrombin Time 9.7 sec (9.0-12.0)
[2020-05-08 16:17] LABS: ALT 22 U/L (4-34); AST 50 U/L (14-36); African American GFR (CKD) 27 (>60 ml/min/1.73 sqM); Albumin 3.8 g/dL (3.5-5.0); Alkaline Phosphatase 73 U/L (38-126); Amylase <30 U/L (30-110); Anion Gap 8 mmol/L; Blood Urea Nitrogen 61 mg/dL (7-17); Calcium 8.5 mg/dL (8.4-10.2); Carbon Dioxide 37 mmol/L (22-30); Chloride 83 mmol/L (98-107); Creatine Kinase 151 U/L (30-135); Glucose 100 mg/dL (74-99); Non-African American GFR(CKD) 24 (>60 ml/min/1.73 sqM); Potassium 4.4 mmol/L (3.5-5.1); Sodium 128 mmol/L (137-145); Total Bilirubin 0.7 mg/dL (0.2-1.3); Total Protein 6.3 g/dL (6.3-8.2)
[2020-05-08] MEDS ORDERED: SODIUM CHLORIDE 0.9% 1,000 ML IV ONE (20:14)
[2020-05-08] MEDS ORDERED: LIDOCAINE 2% GEL 30 ML TUBE TOPICAL ONE (22:48)
[2020-05-08] MEDS ORDERED: BENZOCAINE SPRAY 1 CAN MUCOUS MEM STA (22:51)
[2020-05-08 23:01] LABS: Albumin 3.1 g/dL (3.5-5.0); Calcium 7.6 mg/dL (8.4-10.2); Magnesium 3.2 mg/dL (1.6-2.3); Potassium 3.8 mmol/L (3.5-5.1); Total Bilirubin 0.7 mg/dL (0.2-1.3); Total Protein 5.4 g/dL (6.3-8.2)
--- NOTE | 2020-05-08 23:01 | P.GSHP ---
History of Present Illness H&P Date: 05/08/20 The patient's a 74-year-old female who began feeling bad last . She began developing nausea, vomiting, abdominal pain. She's been unable to keep anything down. The patient feels that due to the vomiting she developed a lump in the right groin. Today she was sent in for an outpatient computed tomography scan which showed a incarcerated hernia and small bowel obstruction. She was admitted to another surgeon but due to personal issues she requested not to be seen by the person. She denies fevers or chills. No bowel movement in several days. This having abdominal distention and pain. Complaining of dry mouth. - Cardiovascular Comment: She has a known heart murmur - Respiratory Respiratory: Reports cough - Gastrointestinal Gastrointestinal: Reports as per HPI Past Medical History Past Medical History: COPD, Hypertension, Rheumatoid Arthritis (RA) Additional Past Medical History / Comment(s): bleeding ulcer History of Any Multi-Drug Resistant Organisms: None Reported Past Surgical History: Tubal Ligation Additional Past Surgical History / Comment(s): Eye surgery (cataracts removed). Past Anesthesia/Blood Transfusion Reactions: No Reported Reaction Past Psychological History: No Psychological Hx Reported Smoking Status: Current every day smoker Past Alcohol Use History: Rare Additional Past Alcohol Use History / Comment(s): smoker since age 18 1/2-1 ppd Past Drug Use History: None Reported - Past Family History Mother Family Medical History: No Reported History Father Family Medical History: Cancer Medications and Allergies Home Medications Medication Instructions Recorded Confirmed Type Cholecalciferol [Vitamin D3 (25 5,000 unit PO DAILY 05/27/19 05/08/20 History Mcg = 1000 Iu)] Magnesium Oxide [Mag-Ox] 250 mg PO BID 05/27/19 05/08/20 History Potassium 99 mg PO BID 05/27/19 05/08/20 History Teriparatide [Forteo] 20 mcg SQ DAILY 05/27/19 05/08/20 History oxyCODONE-APAP 7.5-325MG [Percocet 1 tab PO QID 05/27/19 05/08/20 History 7.5-325 mg] Metoprolol Tartrate [Lopressor] 25 mg PO DAILY #30 tab 05/30/19 05/08/20 Rx Pantoprazole [Protonix] 40 mg PO AC-BID #60 tablet. 05/30/19 05/08/20 Rx Atorvastatin [Lipitor] 20 mg PO DAILY 05/08/20 05/08/20 History Fexofenadine HCl [Jeri Allergy] 180 mg PO DAILY 05/08/20 05/08/20 History Fluconazole [Diflucan] 150 mg PO DAILY 05/08/20 05/08/20 History Fluticasone Nasal [place] [Flonase 1 spray EA NOSTRIL DAILY PRN 05/08/20 05/08/20 History Nasal [place]] Loratadine 10 mg PO DAILY 05/08/20 05/08/20 History Ondansetron [Zofran ODT] 4 mg PO TID PRN 05/08/20 05/08/20 History guaiFENesin [Mucinex] 600 mg PO BID 05/08/20 05/08/20 History Allergies Allergy/AdvReac Type Severity Reaction Status Date / Time alendronate sodium Allergy Unknown Verified 05/08/20 15:07 [From Fosamax] erythromycin base Allergy Unknown Verified 05/08/20 15:07 gatifloxacin [From Tequin] Allergy Unknown Verified 05/08/20 15:07 Penicillins Allergy Unknown Verified 05/08/20 15:07 tetracycline Allergy Unknown Verified 05/08/20 15:07 Surgical - Exam Osteopathic Statement: *. No significant issues noted on an osteopathic structural exam other than those noted in the History and Physical/Consult. Vital Signs Temp Pulse Resp BP Pulse Ox 98.4 F 81 16 102/62 98 05/08/20 15:04 05/08/20 15:04 05/08/20 15:04 05/08/20 15:04 05/08/20 15:04 - General cachectic, chronically ill - Eyes normal ocular movement - Neck trachea midline - Respiratory Diminished breath sounds bilaterally with rhonchi, increased AP diameter of the chest - Cardiovascular Rhythm: regular Abnormal Heart Sounds: systolic murmur - Abdomen Mass in the right groin consistent with incarcerated hernia, it's not erythematous or significantly tender Abdomen: no guarding, no rigid, distended (Very distended and tympanitic) Results - Labs 05/08/20 15:54 05/08/20 15:54 Abnormal Lab Results - Last 24 Hours (Table) 05/08/20 05/08/20 05/08/20 Range/Units 13:00 15:54 15:54 Lymphocytes # 0.9 L (1.0-4.8) k/uL Sodium 128 L (137-145) mmol/L Chloride 83 L (98-107) mmol/L Carbon Dioxide 37 H (22-30) mmol/L BUN 61 H 61 H (7-17) mg/dL Creatinine 2.08 H 2.05 H (0.52-1.04) mg/dL Glucose 100 H (74-99) mg/dL AST 50 H (14-36) U/L Creatine Kinase 151 H (30-135) U/L Amylase <30 L (30-110) U/L Diabetes panel 05/08/20 05/08/20 Range/Units 13:00 15:54 Sodium 128 L (137-145) mmol/L Potassium 4.4 (3.5-5.1) mmol/L Chloride 83 L (98-107) mmol/L Carbon Dioxide 37 H (22-30) mmol/L BUN 61 H 61 H (7-17) mg/dL Creatinine 2.08 H 2.05 H (0.52-1.04) mg/dL Glucose 100 H (74-99) mg/dL Calcium 8.5 (8.4-10.2) mg/dL AST 50 H (14-36) U/L ALT 22 (4-34) U/L Alkaline Phosphatase 73 (38-126) U/L Total Protein 6.3 (6.3-8.2) g/dL Albumin 3.8 (3.5-5.0) g/dL Calcium panel 05/08/20 Range/Units 15:54 Calcium 8.5 (8.4-10.2) mg/dL Albumin 3.8 (3.5-5.0) g/dL Pituitary panel 05/08/20 05/08/20 Range/Units 13:00 15:54 Sodium 128 L (137-145) mmol/L Potassium 4.4 (3.5-5.1) mmol/L Chloride 83 L (98-107) mmol/L Carbon Dioxide 37 H (22-30) mmol/L BUN 61 H 61 H (7-17) mg/dL Creatinine 2.08 H 2.05 H (0.52-1.04) mg/dL Glucose 100 H (74-99) mg/dL Calcium 8.5 (8.4-10.2) mg/dL Adrenal panel 05/08/20 05/08/20 Range/Units 13:00 15:54 Sodium 128 L (137-145) mmol/L Potassium 4.4 (3.5-5.1) mmol/L Chloride 83 L (98-107) mmol/L Carbon Dioxide 37 H (22-30) mmol/L BUN 61 H 61 H (7-17) mg/dL Creatinine 2.08 H 2.05 H (0.52-1.04) mg/dL Glucose 100 H (74-99) mg/dL Calcium 8.5 (8.4-10.2) mg/dL Total Bilirubin 0.7 (0.2-1.3) mg/dL AST 50 H (14-36) U/L ALT 22 (4-34) U/L Alkaline Phosphatase 73 (38-126) U/L Total Protein 6.3 (6.3-8.2) g/dL Albumin 3.8 (3.5-5.0) g/dL - Imaging CT scan - abdomen: report reviewed, image reviewed Assessment and Plan (1) SBO (small bowel obstruction) Current Visit: Yes Status: Acute Code(s): K56.609 - UNSP INTESTNL OBST, UNSP TO PARTIAL VERSUS COMPLETE OBST SNOMED Code(s): 124234743 (2) Inguinal hernia of right side with obstruction Current Visit: Yes Status: Acute Code(s): K40.30 - UNIL INGUINAL HERNIA, W OBST, W/O GANGR, NOT SPCF RECUR SNOMED Code(s): 767261855 (3) Acute renal failure Current Visit: Yes Status: Acute Code(s): N17.9 - ACUTE KIDNEY FAILURE, UNSPECIFIED SNOMED Code(s): 09056350 (4) COPD (chronic obstructive pulmonary disease) Current Visit: Yes Status: Acute Code(s): J44.9 - CHRONIC OBSTRUCTIVE PULMONARY DISEASE, UNSPECIFIED SNOMED Code(s): 06193333 (5) Hypochloremia Current Visit: Yes Status: Acute Code(s): E87.8 - OTH DISORDERS OF ELECTROLYTE AND FLUID BALANCE, NEC SNOMED Code(s): 65945053 (6) Hyponatremia Current Visit: Yes Status: Acute Code(s): E87.1 - HYPO-OSMOLALITY AND HYPONATREMIA SNOMED Code(s): 12674442 Plan: The patient needs to go to the OR to release the bowel obstruction. Unfortunately Her sodium and potassium are too low to do that this evening. She'll be hydrated with normal saline. Serial lab. The patient had refused an NG tube after 2 attempts. After discussion with her, we'll anesthetize the nose with some lidocaine jelly and placed the NG. I would be worried about aspiration with induction of anesthesia because of how distended her abdomen is if it NG is not in place. She is at high risk due to multiple issues such as her COPD, heart murmur, acute onset renal failure, electrolyte imbalances. Tentatively in the morning we'll go to the OR for a right groin exploration with release of bowel obstruction. This may necessitate a segmental small bowel resection. She may require a laparotomy. The procedure, risks, complications were discussed. Questions were encouraged and answered. Prognosis very guarded
[2020-05-08] MEDS: MORPHINE SULFATE 4 MG/ML SYRINGE IVP PRN (23:11)
[2020-05-08 23:12] LABS: Basophils % (A) 0 %; Eosinophils # (A) 0.1 k/uL (0-0.7); Eosinophils % (A) 2 %; HCT 38.2 % (34.0-46.0); Lymphocytes # (A) 1.1 k/uL (1.0-4.8); Lymphocytes % (A) 16 %; MCH 33.9 pg (25.0-35.0); MCHC 33.9 g/dL (31.0-37.0); MCV 99.9 fL (80.0-100.0); Mean Platelet Volume 7.5; Monocytes # (A) 0.6 k/uL (0-1.0); Monocytes % (A) 9 %; Neutrophils # (A) 4.6 k/uL (1.3-7.7); Neutrophils % (A) 70 %; Platelet Count 241 k/uL (150-450); RBC 3.82 m/uL (3.80-5.40); RDW 12.3 % (11.5-15.5); WBC 6.6 k/uL (3.8-10.6)
[2020-05-08 23:16] LABS: Glucose,Whole Blood 53 mg/dL (75-99)
[2020-05-08] MEDS ORDERED: DEXTROSE 50% SYRINGE 50 ML IVP ONE (23:18)
[2020-05-08 23:41] LABS: Glucose,Whole Blood 265 mg/dL (75-99)
[2020-05-09] MEDS: MORPHINE SULFATE 4 MG/ML SYRINGE IVP PRN ×5 (03:28→23:01)
[2020-05-09] MEDS: SODIUM CHLORIDE 0.9% 1,000 ML IV SCH ×2 (03:30→14:46)
[2020-05-09 06:14] LABS: Glucose,Whole Blood 73 mg/dL (75-99)
[2020-05-09 07:44] LABS: Glucose,Whole Blood 82 mg/dL (75-99)
[2020-05-09] MEDS: PANTOPRAZOLE 40 MG/10 ML VIAL IVP SCH (07:54)
[2020-05-09 08:20] LABS: HCT 36.4 % (34.0-46.0); HGB 11.9 gm/dL (11.4-16.0); MCH 32.3 pg (25.0-35.0); MCHC 32.7 g/dL (31.0-37.0); MCV 98.7 fL (80.0-100.0); Mean Platelet Volume 7.1; Platelet Count 220 k/uL (150-450); RBC 3.69 m/uL (3.80-5.40); RDW 12.3 % (11.5-15.5); WBC 6.4 k/uL (3.8-10.6)
[2020-05-09 08:33] LABS: Albumin 2.8 g/dL (3.5-5.0); Calcium 7.5 mg/dL (8.4-10.2); Magnesium 2.8 mg/dL (1.6-2.3); Potassium 3.8 mmol/L (3.5-5.1); Total Bilirubin 0.8 mg/dL (0.2-1.3); Total Protein 5.1 g/dL (6.3-8.2)
[2020-05-09] MEDS ORDERED: CLINDAMYCIN 300 MG in DEXTROSE 5% IN WATER 50 ML IVPB ONE ×2 (09:00)
[2020-05-09] MEDS ORDERED: ENOXAPARIN 40 MG/0.4 ML SYRINGE SQ SCH (09:00)
[2020-05-09] MEDS: METOPROLOL TARTRATE 25 MG TAB PO SCH (09:25)
[2020-05-09 10:13] VITALS: BMI 16.5
--- NOTE | 2020-05-09 10:30 | P.PN ---
Progress Note - Text Progress Note Date: 05/09/20 The patient is feeling better with the NG in place. 750 ml output. Na and Cl are improved today. BUN and cr are improved. Abdomen is softer. Will proceed to OR. Patient is at higher risk due to COPD, renal failure, protein calorie malnutrition and emergent nature of procedure.
[2020-05-09] MEDS ORDERED: IV FLUID CONTINUATION 1,000 ML IV ONE (10:49)
[2020-05-09] MEDS ORDERED: fentaNYL (PF) 50 MCG/ML 2 ML AMP ONE (11:10)
[2020-05-09] MEDS ORDERED: LIDOCAINE 1% INJ 10MG/ML (20 ML MDV) ONE (11:10)
[2020-05-09] MEDS ORDERED: SUCCINYLCHOLINE CHLORIDE 100 MG/5 ML SYR IV ONE (11:10)
[2020-05-09] MEDS ORDERED: PROPOFOL 10 MG/ML 20 ML VIAL IV ONE (11:10)
[2020-05-09] MEDS ORDERED: PHENYLEPHRINE-0.9% NACL SYG 1 MG/10 ML SYRINGE ONE (11:10)
[2020-05-09] MEDS ORDERED: MIDAZOLAM 2 MG/2 ML VIAL ONE (11:10)
[2020-05-09] MEDS ORDERED: LEVOFLOXACIN 500MG-D5W PMX 500 MG in DEXTROSE/WATER 1 100ML.BAG IVPB STA (11:38)
[2020-05-09] MEDS ORDERED: SODIUM CHLORIDE 0.9% 50 ML with CLINDAMYCIN 600 MG IV ONE ×2 (11:43)
[2020-05-09] MEDS ORDERED: BUPIVACAINE (PF) 0.25% 30 ML VIAL SQ ONE (11:55)
[2020-05-09] MEDS ORDERED: LACTATED RINGERS 1,000 ML IV ONE (12:13)
[2020-05-09] MEDS ORDERED: NALOXONE 0.4 MG/ML 1 ML VIAL IV PRN (12:14)
--- NOTE | 2020-05-09 12:14 | P.OP ---
Date of Procedure: 05/09/20 Preoperative Diagnosis: Right inguinal hernia with small bowel obstruction Postoperative Diagnosis: Right femoral hernia with small bowel obstruction Procedure(s) Performed: right groin exploration with release of small bowel obstruction and inguinal herniorrhaphy Anesthesia: ASHWIN Surgeon: Nanci Sorensen Estimated Blood Loss (ml): 10 Pathology: none sent Condition: stable Disposition: PACU Indications for Procedure: Patient presented with a lump in the right groin along with small bowel obstruction which had been going on a week Description of Procedure: Patient's taken the operative suite where she is prepped and draped in the usual sterile manner under general endotracheal anesthetic. A small incision is made in the right groin. A hernia sac is dissected free and it is found to be a femoral hernia. The hernia sac is opened and the bowel appeared viable. A right angle clamp was then used to go under the fascia into the preperitoneal space. The fascia was then incised slightly and the small bowel was able to be reduced. The hernia sac was then closed with 0 Vicryl and reduced. Since the bowel was viable. The hernia. Nursing Home between the ASIS and pubic tubercle the external oblique fascia is opened along the direction of its fibers. The internal oblique is then bluntly opened along the direction of its fibers and the transversalis fascia was opened vertically. The preperitoneal space was then bluntly developed. The femoral defect was palpated but there was no evidence of indirect or direct inguinal hernia. Once adequate preperitoneal space was developed, 8 x 12 cm oval mesh was placed in the area and deployed. It gave good coverage of all potential hernia defect areas. Where the femoral defect was the fascia was secured to the mesh using 0 Vicryl. The transversalis fascia was then closed vertically taking bites of the mesh to secure it in place. The internal oblique muscle was allowed to fall back together. The external oblique was closed with 0 Vicryl. She's were closed with 3-0 Vicryl. The skin was closed with 4-0 Vicryl in a subcuticular manner. Steri-Strips and dressings were applied. She tolerated the procedure without difficulty and was taken recovery room in satisfactory condition. According to or personnel, all counts were correct.
[2020-05-09 14:46] LABS: Glucose,Whole Blood 52 mg/dL (75-99)
[2020-05-09] MEDS: DEXTROSE 5%-0.45% NACL 1,000 ML IV SCH ×2 (14:47→19:44)
[2020-05-09] MEDS ORDERED: DEXTROSE 50% SYRINGE 50 ML IVP STA (14:55)
[2020-05-09 15:27] LABS: Glucose,Whole Blood 195 mg/dL (75-99)
[2020-05-09 18:35] LABS: Glucose,Whole Blood 169 mg/dL (75-99)
[2020-05-09] MEDS: CLINDAMYCIN 300 MG in DEXTROSE 5% IN WATER 50 ML IVPB SCH ×2 (19:42)
--- NOTE | 2020-05-09 22:09 | P.CONS ---
History of Present Illness - Reason for Consult Consult date: 05/09/20 Medical management Requesting physician: Nanci Sorensen - Chief Complaint Abdominal pain - History of Present Illness Consultation: This is a pleasant 74-year-old patient of Dr. qiu. Chronic stable medical conditions include COPD, hypertension, rheumatoid arthritis. Patient had a bleeding peptic ulcer back in 2019. Patient had EGD done by Dr. Shepard at that time and was found to have her antral ulcer, and esophagitis. Patient presents with 1 week of increasing nausea vomiting. And notices a bulge in the right groin. Patient that had a bowel movement for close to 3 weeks. Patient ER was found to small bowel obstruction. Admitted for the same. NG tube was placed. This morning when I saw the patient patient is bulge in the right groin acting gone down. Feeling a bit better. She had been hooked up to suction. Review of systems: GEN.: Tired EYES: None HEENT: NG tube] NECK: None RESPIRATORY: Some wheezing CARDIOVASCULAR: None GASTROINTESTINAL: As above with NG tube GENITOURINARY: None MUSCULOSKELETAL: Joint pains LYMPHATICS: None HEMATOLOGICAL: None PSYCHIATRY: None NEUROLOGICAL: None Past medical history to include: Gastric ulcer, esophagitis, COPD, hypertension, rheumatoid arthritis Social history: Patient lives with her son and [id number], has been smoking since the age of 18 alcohol rarely. Family history: Reviewed, noncontributory to presentation Physical examination: VITAL SIGNS: 98.3, 78, 16, 100 low 71, 95% room air GENERAL: BMI 16.5, sitting up, tired awake. EYES: Pupils equal. Conjunctiva palel. HEENT: External appearance of nose and ears normal, oral cavity dry-NG tube. NECK: JVD not raised; masses not palpable. HEART: First and second heart sounds are normal; no edema. LUNGS: Respiratory rate increased, diminished breath sounds prolonged expiration some wheezing. ABDOMEN: Soft, nontender, liver spleen not palpable, no masses palpable. No bulge in the right groin, decreased distention PSYCH: Alert and oriented x3; mood and affect anxietyl. NEUROLOGICAL: Cranial nerves grossly intact; no facial asymmetry, power and sensation grossly intact. LYMPHATICS: No lymph nodes palpable in the axilla and neck INVESTIGATIONS, reviewed in the clinical context: White count 6.4 hemoglobin 11.9 potassium 3.8 bun 40 crit 1.21 albumin 2.8 sodium 1:30 Admission labs bun 54 creatinine 1.61 Computed tomography scan of the abdomen and pelvis-small bowel obstruction felt to be secondary to incarcerated right inguinal hernia with small bowel showing air-fluid level - Assessment: -Incarcerated right inguinal hernia with small bowel obstruction. Patient has an NG tube. -COPD in a current smoker -Chronic nicotine dependence patient cigarette smoker -Essential hypertension -Rheumatoid arthritis -Acute kidney injury possibly ATN prerenal, POA -Severe protein calorie malnutrition patient is BMI 16.5 -Hyponatremia Plan: Patient is feeling better since the NG tube. Patient seen by Dr. Sorensen from [facility] surgery. Palate for surgery this afternoon. Continue with IV fluids. DVT prophylaxis. Repeat labs in the morning. Add DuoNeb. Thank you Dr. Sorensen Past Medical History Past Medical History: COPD, Hypertension, Rheumatoid Arthritis (RA) Additional Past Medical History / Comment(s): bleeding ulcer History of Any Multi-Drug Resistant Organisms: None Reported Past Surgical History: Tubal Ligation Additional Past Surgical History / Comment(s): Eye surgery (cataracts removed). Past Anesthesia/Blood Transfusion Reactions: No Reported Reaction Past Psychological History: No Psychological Hx Reported Smoking Status: Current every day smoker Past Alcohol Use History: Rare Additional Past Alcohol Use History / Comment(s): smoker since age 18 1/2-1 ppd Past Drug Use History: None Reported - Past Family History Mother Family Medical History: No Reported History Father Family Medical History: Cancer Medications and Allergies Home Medications Medication Instructions Recorded Confirmed Type Cholecalciferol [Vitamin D3 (25 5,000 unit PO DAILY 05/27/19 05/08/20 History Mcg = 1000 Iu)] Magnesium Oxide [Mag-Ox] 250 mg PO BID 05/27/19 05/08/20 History Potassium 99 mg PO BID 05/27/19 05/08/20 History Teriparatide [Forteo] 20 mcg SQ DAILY 05/27/19 05/08/20 History oxyCODONE-APAP 7.5-325MG [Percocet 1 tab PO QID 05/27/19 05/08/20 History 7.5-325 mg] Metoprolol Tartrate [Lopressor] 25 mg PO DAILY #30 tab 05/30/19 05/08/20 Rx Pantoprazole [Protonix] 40 mg PO AC-BID #60 tablet. 05/30/19 05/08/20 Rx Atorvastatin [Lipitor] 20 mg PO DAILY 05/08/20 05/08/20 History Fexofenadine HCl [Jeri Allergy] 180 mg PO DAILY 05/08/20 05/08/20 History Fluconazole [Diflucan] 150 mg PO DAILY 05/08/20 05/08/20 History Fluticasone Nasal [place] [Flonase 1 spray EA NOSTRIL DAILY PRN 05/08/20 05/08/20 History Nasal [place]] Loratadine 10 mg PO DAILY 05/08/20 05/08/20 History Ondansetron [Zofran ODT] 4 mg PO TID PRN 05/08/20 05/08/20 History guaiFENesin [Mucinex] 600 mg PO BID 05/08/20 05/08/20 History Allergies Allergy/AdvReac Type Severity Reaction Status Date / Time alendronate sodium Allergy Unknown Verified 05/08/20 15:07 [From Fosamax] erythromycin base Allergy Unknown Verified 05/08/20 15:07 gatifloxacin [From Tequin] Allergy Unknown Verified 05/08/20 15:07 Penicillins Allergy Unknown Verified 05/08/20 15:07 tetracycline Allergy Unknown Verified 05/08/20 15:07 Physical Exam Vitals: Vital Signs Temp Pulse Pulse Resp BP BP Pulse Ox 05/09/20 09:26 98.7 F 75 18 113/68 05/09/20 05:09 98.3 F 78 16 112/71 95 05/08/20 20:04 98.5 F 70 16 99/63 94 L 05/08/20 19:29 98.4 F 56 L 16 96/60 96 05/08/20 18:18 56 L 16 96/60 96 05/08/20 17:59 107/62 05/08/20 16:37 64 18 131/66 98 05/08/20 15:04 98.4 F 81 16 102/62 98 Intake and Output 05/08/20 05/09/20 05/09/20 22:59 06:59 14:59 Intake Total 2300 Output Total 750 Balance 1550 Intake: Intake, IV Titration 2300 Amount Sodium Chloride 0.9% 1, 1300 000 ml @ 130 mls/hr IV . Q7H42M STA Rx#:[id number] Sodium Chloride 0.9% 1, 1000 000 ml @ 999 mls/hr IV . Q1H1M ONE Rx#:[id number] Output: Gastric Drainage 750 Other: Voiding Method Toilet Toilet # Voids 1 Weight 40.823 kg Results CBC & Chem 7: 05/09/20 08:00 05/09/20 08:00 Labs: Abnormal Lab Results - Last 24 Hours (Table) 05/08/20 05/08/20 05/08/20 Range/Units 13:00 15:54 15:54 RBC (3.80-5.40) m/uL Lymphocytes # 0.9 L (1.0-4.8) k/uL Sodium 128 L (137-145) mmol/L Chloride 83 L (98-107) mmol/L Carbon Dioxide 37 H (22-30) mmol/L BUN 61 H 61 H (7-17) mg/dL Creatinine 2.08 H 2.05 H (0.52-1.04) mg/dL Glucose 100 H (74-99) mg/dL POC Glucose (mg/dL) (75-99) mg/dL Calcium (8.4-10.2) mg/dL Magnesium (1.6-2.3) mg/dL AST 50 H (14-36) U/L Creatine Kinase 151 H (30-135) U/L Total Protein (6.3-8.2) g/dL Albumin (3.5-5.0) g/dL Amylase <30 L (30-110) U/L 05/08/20 05/08/20 05/08/20 Range/Units 22:33 23:15 23:40 RBC (3.80-5.40) m/uL Lymphocytes # (1.0-4.8) k/uL Sodium 130 L (137-145) mmol/L Chloride 90 L (98-107) mmol/L Carbon Dioxide (22-30) mmol/L BUN 54 H (7-17) mg/dL Creatinine 1.61 H (0.52-1.04) mg/dL Glucose 54 L (74-99) mg/dL POC Glucose (mg/dL) 53 L 265 H (75-99) mg/dL Calcium 7.6 L (8.4-10.2) mg/dL Magnesium 3.2 H (1.6-2.3) mg/dL AST 44 H (14-36) U/L Creatine Kinase (30-135) U/L Total Protein 5.4 L (6.3-8.2) g/dL Albumin 3.1 L (3.5-5.0) g/dL Amylase (30-110) U/L 05/09/20 05/09/20 05/09/20 Range/Units 06:13 08:00 08:00 RBC 3.69 L (3.80-5.40) m/uL Lymphocytes # (1.0-4.8) k/uL Sodium 132 L (137-145) mmol/L Chloride 95 L (98-107) mmol/L Carbon Dioxide (22-30) mmol/L BUN 40 H (7-17) mg/dL Creatinine 1.21 H (0.52-1.04) mg/dL Glucose 72 L (74-99) mg/dL POC Glucose (mg/dL) 73 L (75-99) mg/dL Calcium 7.5 L (8.4-10.2) mg/dL Magnesium 2.8 H (1.6-2.3) mg/dL AST 46 H (14-36) U/L Creatine Kinase (30-135) U/L Total Protein 5.1 L (6.3-8.2) g/dL Albumin 2.8 L (3.5-5.0) g/dL Amylase (30-110) U/L
[2020-05-09] MEDS: NICOTINE 14MG/24HR PATCH TRANSDERM SCH (23:02)
[2020-05-10 00:22] LABS: Glucose,Whole Blood 137 mg/dL (75-99)
[2020-05-10] MEDS: CLINDAMYCIN 300 MG in DEXTROSE 5% IN WATER 50 ML IVPB SCH ×2 (02:45)
[2020-05-10] MEDS: MORPHINE SULFATE 4 MG/ML SYRINGE IVP PRN ×5 (02:54→20:12)
[2020-05-10] MEDS: DEXTROSE 5%-0.45% NACL 1,000 ML IV SCH ×3 (02:54→20:15)
[2020-05-10 06:40] LABS: Glucose,Whole Blood 156 mg/dL (75-99)
[2020-05-10 07:11] LABS: HCT 37.3 % (34.0-46.0); HGB 12.2 gm/dL (11.4-16.0); MCH 32.6 pg (25.0-35.0); MCHC 32.8 g/dL (31.0-37.0); MCV 99.4 fL (80.0-100.0); Platelet Count 212 k/uL (150-450); RBC 3.75 m/uL (3.80-5.40); RDW 12.4 % (11.5-15.5); WBC 9.3 k/uL (3.8-10.6)
[2020-05-10 08:09] LABS: African American GFR (CKD) >90 (>60 ml/min/1.73 sqM); Anion Gap 5 mmol/L; Blood Urea Nitrogen 19 mg/dL (7-17); Calcium 7.3 mg/dL (8.4-10.2); Carbon Dioxide 24 mmol/L (22-30); Chloride 101 mmol/L (98-107); Glucose 132 mg/dL (74-99); Non-African American GFR(CKD) 84 (>60 ml/min/1.73 sqM); Potassium 3.4 mmol/L (3.5-5.1); Sodium 130 mmol/L (137-145)
[2020-05-10] MEDS ORDERED: ENOXAPARIN 30 MG/0.3 ML SYRINGE SQ SCH (09:00)
[2020-05-10] MEDS: NICOTINE 14MG/24HR PATCH TRANSDERM SCH (09:24)
[2020-05-10] MEDS: METOPROLOL TARTRATE 25 MG TAB PO SCH (09:24)
[2020-05-10] MEDS: PANTOPRAZOLE 40 MG/10 ML VIAL IVP SCH (09:24)
[2020-05-10 11:28] LABS: Glucose,Whole Blood 127 mg/dL (75-99)
--- NOTE | 2020-05-10 18:07 | P.PN ---
Progress Note - Text Progress Note Date: 05/10/20 - Chief Complaint Abdominal pain - History of Present Illness Consultation: This is a pleasant 74-year-old patient of Dr. qiu. Chronic stable medical conditions include COPD, hypertension, rheumatoid arthritis. Patient had a bleeding peptic ulcer back in 2019. Patient had EGD done by Dr. Shepard at that time and was found to have her antral ulcer, and esophagitis. Patient presents with 1 week of increasing nausea vomiting. And notices a bulge in the right groin. Patient that had a bowel movement for close to 3 weeks. Patient ER was found to small bowel obstruction. Admitted for the same. NG tube was placed. This morning when I saw the patient patient is bulge in the right groin acting gone down. Feeling a bit better. She had been hooked up to suction. Patient on May 09 underwent right groin herniorrhaphy and correction of small bowel obstruction. Today-NG tube remains in place. Pain control. Has positive flatus. Remains nothing by mouth. Laying in bed. Review of systems: Was done for constitutional, cardiovascular, GI, pulmonary. relevant finding as above Active Medications Enoxaparin Sodium (Lovenox) 40 mg SQ DAILY [facility] Dextrose/Sodium Chloride (Dextrose 5%-1/2ns Iv Soln) 1,000 mls @ 125 mls/hr IV .Q8H [facility] Last Admin: 05/10/20 12:53 Dose: 125 mls/hr Documented by: Metoprolol Tartrate (Lopressor) 25 mg PO DAILY [facility] Last Admin: 05/10/20 09:24 Dose: 25 mg Documented by: Morphine Sulfate (Morphine Sulfate (Inj)) 4 mg IVP Q4HR PRN PRN Reason: Pain Last Admin: 05/10/20 16:31 Dose: 4 mg Documented by: Naloxone HCl (Narcan) 0.2 mg IV Q2M PRN PRN Reason: Opioid Reversal Nicotine (Habitrol 14mg/24hr Patch) 1 patch TRANSDERM DAILY [facility] Last Admin: 05/10/20 09:24 Dose: 1 patch Documented by: Ondansetron HCl (Zofran) 4 mg IVP Q6HR PRN PRN Reason: Nausea And Vomiting Pantoprazole Sodium (Protonix) 40 mg IVP DAILY [facility] Last Admin: 05/10/20 09:24 Dose: 40 mg Documented by: Physical examination: VITAL SIGNS: 98.9, 59, 16, 1070 63, 95% room air GENERAL: Laying in bed, tired EYES: Pupils equal. Conjunctiva palel. HEENT: External appearance of nose and ears normal, oral cavity dry-NG tube. NECK: JVD not raised; masses not palpable. HEART: First and second heart sounds are normal; no edema. LUNGS: Respiratory rate increased, diminished breath sounds prolonged expiration some wheezing. ABDOMEN: Soft, mild tenderness, dressing over the right groin liver spleen not palpable, no masses palpable. Pulses present PSYCH: Alert and oriented x3; mood and affect anxietyl. INVESTIGATIONS, reviewed in the clinical context: White count 9.3 hemoglobin 12.2 creatinine 0.7 to Previous testing White count 6.4 hemoglobin 11.9 potassium 3.8 bun 40 crit 1.21 albumin 2.8 sodium 1:30 Admission labs bun 54 creatinine 1.61 Computed tomography scan of the abdomen and pelvis-small bowel obstruction felt to be secondary to incarcerated right inguinal hernia with small bowel showing air-fluid level - Assessment: -Incarcerated right inguinal hernia with small bowel obstruction. Patient has an NG tube.-Status post right inguinal hernia herniorrhaphy. -COPD in a current smoker -Chronic nicotine dependence patient cigarette smoker -Essential hypertension -Rheumatoid arthritis -Acute kidney injury possibly ATN prerenal, POA -Severe protein calorie malnutrition patient is BMI 16.5 -Hyponatremia Plan: -continue current medication treatment plan. IV fluids. Care was discussed with the patient. Thank you Dr. Sorensen
[2020-05-10 18:11] LABS: Glucose,Whole Blood 133 mg/dL (75-99)
[2020-05-11] MEDS: MORPHINE SULFATE 4 MG/ML SYRINGE IVP PRN ×5 (00:04→21:02)
[2020-05-11 00:09] LABS: Glucose,Whole Blood 124 mg/dL (75-99)
[2020-05-11] MEDS: DEXTROSE 5%-0.45% NACL 1,000 ML IV SCH ×3 (04:53→19:35)
[2020-05-11 05:43] LABS: Glucose,Whole Blood 134 mg/dL (75-99)
[2020-05-11 07:39] LABS: African American GFR (CKD) >90 (>60 ml/min/1.73 sqM); Anion Gap 3 mmol/L; Blood Urea Nitrogen 7 mg/dL (7-17); Calcium 7.2 mg/dL (8.4-10.2); Carbon Dioxide 25 mmol/L (22-30); Chloride 104 mmol/L (98-107); Glucose 127 mg/dL (74-99); Non-African American GFR(CKD) >90 (>60 ml/min/1.73 sqM); Potassium 2.9 mmol/L (3.5-5.1); Sodium 132 mmol/L (137-145)
[2020-05-11] MEDS: PANTOPRAZOLE 40 MG/10 ML VIAL IVP SCH (08:43)
[2020-05-11] MEDS: ENOXAPARIN 40 MG/0.4 ML SYRINGE SQ SCH (08:44)
[2020-05-11] MEDS: NICOTINE 14MG/24HR PATCH TRANSDERM SCH (08:44)
[2020-05-11] MEDS: METOPROLOL TARTRATE 25 MG TAB PO SCH (08:44)
--- NOTE | 2020-05-11 11:01 | P.PN ---
Subjective Progress Note Date: 05/10/20 patient is feeling better today. still slightly distended. complains of midline pain. she did have a BM no flatus Objective - Vital Signs Vital signs: Vital Signs Temp 98.3 F 05/11/20 04:54 Pulse 73 05/11/20 04:54 Resp 18 05/11/20 04:54 BP 150/78 05/11/20 04:54 Pulse Ox 95 05/11/20 04:54 Intake & Output 05/10/20 05/11/20 05/11/20 18:59 06:59 18:59 Intake Total 1000 1500 Output Total 90 200 Balance 910 1300 Intake: Intake, IV Titration 1000 1500 Amount Dextrose 5%-0.45% NaCl 1, 1000 1500 000 ml @ 125 mls/hr IV . Q8H ANN Rx#:[id number] Output: Gastric Drainage 90 200 Other: Voiding Method Toilet Toilet # Voids 1 2 2 - Constitutional General appearance: Present: cooperative - Gastrointestinal Gastrointestinal Comment(s): S/mild distendion, dressing CDI - Psychiatric Psychiatric: Present: A&O x's 3 - Labs CBC & Chem 7: 05/10/20 06:50 05/11/20 06:48 Labs: Abnormal Lab Results - Last 24 Hours (Table) 05/10/20 05/10/20 05/11/20 Range/Units 11:27 18:10 00:08 Sodium (137-145) mmol/L Potassium (3.5-5.1) mmol/L Glucose (74-99) mg/dL POC Glucose (mg/dL) 127 H 133 H 124 H (75-99) mg/dL Calcium (8.4-10.2) mg/dL 05/11/20 05/11/20 Range/Units 05:40 06:48 Sodium 132 L (137-145) mmol/L Potassium 2.9 L (3.5-5.1) mmol/L Glucose 127 H (74-99) mg/dL POC Glucose (mg/dL) 134 H (75-99) mg/dL Calcium 7.2 L (8.4-10.2) mg/dL Assessment and Plan Assessment: POD#1 Repair of incarcerated femoral hernia Plan: continue NGTand NPO at this time. Patient is expected to have an ileus, if she continues to have flatus and BM then NGT can be DC tomorrow
[2020-05-11] MEDS: POTASSIUM CHLORIDE ER 20 MEQ TAB.ER PO SCH ×2 (11:30→13:50)
[2020-05-11 14:00] LABS: Glucose,Whole Blood 102 mg/dL (75-99)
--- NOTE | 2020-05-11 16:30 | P.PN ---
Progress Note - Text Progress Note Date: 05/11/20 - Chief Complaint Abdominal pain - History of Present Illness Consultation: This is a pleasant 74-year-old patient of Dr. qiu. Chronic stable medical conditions include COPD, hypertension, rheumatoid arthritis. Patient had a bleeding peptic ulcer back in 2019. Patient had EGD done by Dr. Shepard at that time and was found to have her antral ulcer, and esophagitis. Patient presents with 1 week of increasing nausea vomiting. And notices a bulge in the right groin. Patient that had a bowel movement for close to 3 weeks. Patient ER was found to small bowel obstruction. Admitted for the same. NG tube was placed. This morning when I saw the patient patient is bulge in the right groin acting gone down. Feeling a bit better. She had been hooked up to suction. Patient on May 09 underwent right groin herniorrhaphy and correction of small bowel obstruction. Today-NG tube remains in place. Has not positive flatus. Intermittent abdominal pain. Review of systems: Was done for constitutional, cardiovascular, GI, pulmonary. relevant finding as above Active Medications Enoxaparin Sodium (Lovenox) 40 mg SQ DAILY [facility] Last Admin: 05/11/20 08:44 Dose: 40 mg Documented by: Dextrose/Sodium Chloride (Dextrose 5%-1/2ns Iv Soln) 1,000 mls @ 125 mls/hr IV .Q8H [facility] Last Admin: 05/11/20 12:51 Dose: 125 mls/hr Documented by: Metoprolol Tartrate (Lopressor) 25 mg PO DAILY [facility] Last Admin: 05/11/20 08:44 Dose: 25 mg Documented by: Morphine Sulfate (Morphine Sulfate (Inj)) 4 mg IVP Q4HR PRN PRN Reason: Pain Last Admin: 05/11/20 09:08 Dose: 4 mg Documented by: Naloxone HCl (Narcan) 0.2 mg IV Q2M PRN PRN Reason: Opioid Reversal Nicotine (Habitrol 14mg/24hr Patch) 1 patch TRANSDERM DAILY [facility] Last Admin: 05/11/20 08:44 Dose: 1 patch Documented by: Ondansetron HCl (Zofran) 4 mg IVP Q6HR PRN PRN Reason: Nausea And Vomiting Pantoprazole Sodium (Protonix) 40 mg IVP DAILY [facility] Last Admin: 05/11/20 08:43 Dose: 40 mg Documented by: Physical examination: VITAL SIGNS: 97.9, 60, 16, 132/70, 96% room air GENERAL: Laying in bed, tired EYES: Pupils equal. Conjunctiva palel. HEENT: External appearance of nose and ears normal, oral cavity dry-NG tube. NECK: JVD not raised; masses not palpable. HEART: First and second heart sounds are normal; no edema. LUNGS: Respiratory rate increased, diminished breath sounds prolonged expiration some wheezing. ABDOMEN: Soft, mild tenderness, dressing over the right groin liver spleen not palpable, no masses palpable. Bowel sounds present PSYCH: Alert and oriented x3; mood and affect anxietyl. INVESTIGATIONS, reviewed in the clinical context: Potassium 2.9 Previous testing White count 6.4 hemoglobin 11.9 potassium 3.8 bun 40 crit 1.21 albumin 2.8 sodium 1:30 Admission labs bun 54 creatinine 1.61 Computed tomography scan of the abdomen and pelvis-small bowel obstruction felt to be secondary to incarcerated right inguinal hernia with small bowel showing air-fluid level - Assessment: -Incarcerated right inguinal hernia with small bowel obstruction. Patient has an NG tube.-Status post right inguinal hernia herniorrhaphy. -COPD in a current smoker -Chronic nicotine dependence patient cigarette smoker -Essential hypertension -Rheumatoid arthritis -Acute kidney injury possibly ATN prerenal, POA -Severe protein calorie malnutrition patient is BMI 16.5 -Hyponatremia -Severe hypokalemia Plan: -Replace potassium. Patient encouraged to sit up in a chair. Start chewing gum. Check labs. Thank you Dr. Sorensen
--- NOTE | 2020-05-11 17:21 | P.PN ---
Subjective Progress Note Date: 05/11/20 patient is feeling better today. still slightly distended. complains of midline pain. She has not had a BM or passed flatus for the last 24 hours since right after surgery. Objective - Vital Signs Vital signs: Vital Signs Temp 97.9 F 05/11/20 11:15 Pulse 60 05/11/20 11:15 Resp 16 05/11/20 11:15 BP 132/70 05/11/20 11:15 Pulse Ox 96 05/11/20 11:15 Intake & Output 05/10/20 05/11/20 05/11/20 18:59 06:59 18:59 Intake Total 1000 1500 1000 Output Total 90 200 Balance 910 1300 1000 Intake: Intake, IV Titration 1000 1500 1000 Amount Dextrose 5%-0.45% NaCl 1, 1000 1500 1000 000 ml @ 125 mls/hr IV . Q8H ANN Rx#:[id number] Output: Gastric Drainage 90 200 Other: Voiding Method Toilet Toilet Toilet # Voids 1 2 4 - Constitutional General appearance: Present: cooperative - Cardiovascular Rhythm: regular - Gastrointestinal Gastrointestinal Comment(s): S/expected TTP/ mild distention - Psychiatric Psychiatric: Present: A&O x's 3 - Labs CBC & Chem 7: 05/10/20 06:50 05/11/20 06:48 Labs: Abnormal Lab Results - Last 24 Hours (Table) 05/10/20 05/11/20 05/11/20 Range/Units 18:10 00:08 05:40 Sodium (137-145) mmol/L Potassium (3.5-5.1) mmol/L Glucose (74-99) mg/dL POC Glucose (mg/dL) 133 H 124 H 134 H (75-99) mg/dL Calcium (8.4-10.2) mg/dL 05/11/20 05/11/20 Range/Units 06:48 13:59 Sodium 132 L (137-145) mmol/L Potassium 2.9 L (3.5-5.1) mmol/L Glucose 127 H (74-99) mg/dL POC Glucose (mg/dL) 102 H (75-99) mg/dL Calcium 7.2 L (8.4-10.2) mg/dL Assessment and Plan Assessment: POD#2 Repair of incarcerated femoral hernia Plan: continue NGTand NPO at this time. Patient is expected to have an ileus, await further bowel function. The small stool she passed right after surgery was likely just residual in her colon as she will have some degree of ileus after surgery.
[2020-05-11] MEDS: FAMOTIDINE 20 MG/2 ML VIAL IV SCH (21:05)
[2020-05-12 00:29] LABS: Glucose,Whole Blood 100 mg/dL (75-99)
[2020-05-12] MEDS: MORPHINE SULFATE 4 MG/ML SYRINGE IVP PRN ×5 (02:39→20:00)
[2020-05-12 05:35] LABS: Glucose,Whole Blood 113 mg/dL (75-99)
[2020-05-12] MEDS: DEXTROSE 5%-0.45% NACL 1,000 ML IV SCH ×3 (06:09→22:34)
[2020-05-12 07:49] LABS: African American GFR (CKD) >90 (>60 ml/min/1.73 sqM); Anion Gap 3 mmol/L; Blood Urea Nitrogen 4 mg/dL (7-17); Calcium 7.6 mg/dL (8.4-10.2); Carbon Dioxide 25 mmol/L (22-30); Chloride 106 mmol/L (98-107); Glucose 109 mg/dL (74-99); Non-African American GFR(CKD) >90 (>60 ml/min/1.73 sqM); Potassium 3.6 mmol/L (3.5-5.1); Sodium 134 mmol/L (137-145)
[2020-05-12] MEDS: ENOXAPARIN 40 MG/0.4 ML SYRINGE SQ SCH (08:55)
[2020-05-12] MEDS: FAMOTIDINE 20 MG/2 ML VIAL IV SCH (08:55)
[2020-05-12] MEDS: METOPROLOL TARTRATE 25 MG TAB PO SCH (08:56)
[2020-05-12] MEDS: NICOTINE 14MG/24HR PATCH TRANSDERM SCH (08:56)
[2020-05-12] MEDS ORDERED: TERIPARATIDE 20 MCG SQ SCH (11:15)
--- NOTE | 2020-05-12 11:20 | P.PN ---
Subjective Progress Note Date: 05/12/20 Principal diagnosis: Small bowel obstruction due to femoral hernia The patient is postop day 3 release of small bowel obstruction secondary to incarcerated femoral hernia. She's been doing well. She feels better. She feels things "rumbling" in her abdomen. Passed a small amount of flatus. Pain is controlled. Objective - Vital Signs Vital signs: Vital Signs Temp 97.8 F 05/12/20 05:00 Pulse 75 05/12/20 05:00 Resp 18 05/12/20 05:00 BP 151/72 05/12/20 05:00 Pulse Ox 96 05/12/20 05:00 Intake & Output 05/11/20 05/12/20 05/12/20 18:59 06:59 18:59 Intake Total 1000 1500 Output Total 100 Balance 1000 1400 Intake: Intake, IV Titration 1000 1500 Amount Dextrose 5%-0.45% NaCl 1, 1000 1500 000 ml @ 125 mls/hr IV . Q8H ANN Rx#:[id number] Output: Gastric Drainage 100 Other: Voiding Method Toilet Toilet Toilet # Voids 4 3 1 - Constitutional General appearance: Present: cooperative, no acute distress - Respiratory Respiratory: bilateral: diminished (Bilaterally), negative: wheezing - Gastrointestinal General gastrointestinal: Present: decreased bowel sounds Localized gastrointestinal: surgical scar: diffuse (Incision and right lower quadrant is healing without cellulitis or hematoma) - Labs CBC & Chem 7: 05/10/20 06:50 05/12/20 07:03 Labs: Abnormal Lab Results - Last 24 Hours (Table) 05/11/20 05/12/20 05/12/20 Range/Units 13:59 00:28 05:33 Sodium (137-145) mmol/L BUN (7-17) mg/dL Glucose (74-99) mg/dL POC Glucose (mg/dL) 102 H 100 H 113 H (75-99) mg/dL Calcium (8.4-10.2) mg/dL 05/12/20 Range/Units 07:03 Sodium 134 L (137-145) mmol/L BUN 4 L (7-17) mg/dL Glucose 109 H (74-99) mg/dL POC Glucose (mg/dL) (75-99) mg/dL Calcium 7.6 L (8.4-10.2) mg/dL Assessment and Plan (1) SBO (small bowel obstruction) Current Visit: Yes Status: Acute Code(s): K56.609 - UNSP INTESTNL OBST, UNSP TO PARTIAL VERSUS COMPLETE OBST SNOMED Code(s): 462117124 (2) Inguinal hernia of right side with obstruction Current Visit: Yes Status: Acute Code(s): K40.30 - UNIL INGUINAL HERNIA, W OBST, W/O GANGR, NOT SPCF RECUR SNOMED Code(s): 944367677 (3) Acute renal failure Current Visit: Yes Status: Acute Code(s): N17.9 - ACUTE KIDNEY FAILURE, UNSPECIFIED SNOMED Code(s): 17349779 (4) COPD (chronic obstructive pulmonary disease) Current Visit: Yes Status: Acute Code(s): J44.9 - CHRONIC OBSTRUCTIVE PULMONARY DISEASE, UNSPECIFIED SNOMED Code(s): 79621626 (5) Hypochloremia Current Visit: Yes Status: Acute Code(s): E87.8 - OTH DISORDERS OF ELECTROLYTE AND FLUID BALANCE, NEC SNOMED Code(s): 48801654 (6) Hyponatremia Current Visit: Yes Status: Acute Code(s): E87.1 - HYPO-OSMOLALITY AND HYPONATREMIA SNOMED Code(s): 16159959 Plan: NG output is decreasing in bowel sounds are returning. We'll place an NG tube gravity. If no increase in pain, nausea or vomiting and will be as continued this afternoon and she will be started on clear liquids. Progressing slowly. Encourage incentive spirometry. Renal function has returned to normal.
[2020-05-12 11:58] LABS: Glucose,Whole Blood 109 mg/dL (75-99)
[2020-05-12] MEDS: ATORVASTATIN 20 MG TAB PO SCH (13:15)
[2020-05-12] MEDS: PANTOPRAZOLE 40 MG TABLET PO SCH ×2 (13:15→17:35)
[2020-05-12] MEDS: FORTEO 20 MCG SQ SCH (14:34)
[2020-05-12 17:11] LABS: Glucose,Whole Blood 122 mg/dL (75-99)
--- NOTE | 2020-05-12 23:30 | P.PN ---
Progress Note - Text Progress Note Date: 05/12/20 - Chief Complaint Abdominal pain - History of Present Illness Consultation: This is a pleasant 74-year-old patient of Dr. qiu. Chronic stable medical conditions include COPD, hypertension, rheumatoid arthritis. Patient had a bleeding peptic ulcer back in 2019. Patient had EGD done by Dr. Shepard at that time and was found to have her antral ulcer, and esophagitis. Patient presents with 1 week of increasing nausea vomiting. And notices a bulge in the right groin. Patient that had a bowel movement for close to 3 weeks. Patient ER was found to small bowel obstruction. Admitted for the same. NG tube was placed. May 09 underwent right groin herniorrhaphy and correction of small bowel obstruction. Today-NG tube remains in place. Some abdominal pain. Slight flatus. Review of systems: Was done for constitutional, cardiovascular, GI, pulmonary. relevant finding as above Active Medications Atorvastatin Calcium (Lipitor) 20 mg PO DAILY [facility] Last Admin: 05/12/20 13:15 Dose: 20 mg Documented by: Enoxaparin Sodium (Lovenox) 40 mg SQ DAILY [facility] Last Admin: 05/12/20 08:55 Dose: 40 mg Documented by: Dextrose/Sodium Chloride (Dextrose 5%-1/2ns Iv Soln) 1,000 mls @ 125 mls/hr IV .Q8H [facility] Last Admin: 05/12/20 22:34 Dose: 125 mls/hr Documented by: Metoprolol Tartrate (Lopressor) 25 mg PO DAILY [facility] Last Admin: 05/12/20 08:56 Dose: 25 mg Documented by: Morphine Sulfate (Morphine Sulfate (Inj)) 4 mg IVP Q4HR PRN PRN Reason: Pain Last Admin: 05/12/20 20:00 Dose: 4 mg Documented by: Naloxone HCl (Narcan) 0.2 mg IV Q2M PRN PRN Reason: Opioid Reversal Nicotine (Habitrol 14mg/24hr Patch) 1 patch TRANSDERM DAILY [facility] Last Admin: 05/12/20 08:56 Dose: 1 patch Documented by: Forteo (Teriparatide () 20 Mcg Inj) 20 mcg SQ DAILY [facility] Last Admin: 05/12/20 14:34 Dose: 20 mcg Documented by: Ondansetron HCl (Zofran) 4 mg IVP Q6HR PRN PRN Reason: Nausea And Vomiting Pantoprazole Sodium (Protonix) 40 mg PO AC-BID [facility] Last Admin: 05/12/20 17:35 Dose: 40 mg Documented by: Physical examination: VITAL SIGNS: Recent 0.6, 58, 18, 143/64, 97% room air GENERAL: Laying in bed, tired EYES: Pupils equal. Conjunctiva palel. HEENT: External appearance of nose and ears normal, oral cavity dry-NG tube. NECK: JVD not raised; masses not palpable. HEART: First and second heart sounds are normal; no edema. LUNGS: Respiratory rate increased, diminished breath sounds prolonged expiration some wheezing. ABDOMEN: Soft, mild tenderness, dressing over the right groin liver spleen not palpable, no masses palpable. Bowel sounds present PSYCH: Alert and oriented x3; mood and affect anxietyl. INVESTIGATIONS, reviewed in the clinical context: Potassium 3.6 Previous testing White count 6.4 hemoglobin 11.9 potassium 3.8 bun 40 crit 1.21 albumin 2.8 sodium 1:30 Admission labs bun 54 creatinine 1.61 Computed tomography scan of the abdomen and pelvis-small bowel obstruction felt to be secondary to incarcerated right inguinal hernia with small bowel showing air-fluid level - Assessment: -Incarcerated right inguinal hernia with small bowel obstruction. Patient has an NG tube.-Status post right inguinal hernia herniorrhaphy. -COPD in a current smoker -Chronic nicotine dependence patient cigarette smoker -Essential hypertension -Rheumatoid arthritis -Acute kidney injury possibly ATN prerenal, POA -Severe protein calorie malnutrition patient is BMI 16.5 -Hyponatremia -Severe hypokalemia-corrected Plan: Per surgery NG tube placed to gravity today. Encouraged to be out of bed. She'll be started on clear liquids this afternoon per Dr. Sorensen. Discussed with the patient. Thank you Dr. Sorensen
[2020-05-13] MEDS: MORPHINE SULFATE 4 MG/ML SYRINGE IVP PRN ×5 (00:07→21:26)
[2020-05-13 00:15] LABS: Glucose,Whole Blood 123 mg/dL (75-99)
[2020-05-13 06:14] LABS: Glucose,Whole Blood 124 mg/dL (75-99)
[2020-05-13] MEDS: ATORVASTATIN 20 MG TAB PO SCH (07:25)
[2020-05-13] MEDS: PANTOPRAZOLE 40 MG TABLET PO SCH ×2 (07:25→17:15)
[2020-05-13] MEDS: METOPROLOL TARTRATE 25 MG TAB PO SCH (07:25)
[2020-05-13] MEDS: DEXTROSE 5%-0.45% NACL 1,000 ML IV SCH (07:25)
[2020-05-13] MEDS: ENOXAPARIN 40 MG/0.4 ML SYRINGE SQ SCH (07:26)
[2020-05-13] MEDS: NICOTINE 14MG/24HR PATCH TRANSDERM SCH (07:26)
[2020-05-13] MEDS: FORTEO 20 MCG SQ SCH (08:00)
--- NOTE | 2020-05-13 14:23 | P.PN ---
Subjective Progress Note Date: 05/13/20 Principal diagnosis: Small bowel obstruction due to femoral hernia The patient is doing well. Passing flatus. Tolerating clear liquids. No nausea or vomiting. Denies incisional pain. Has some mild pain in the left lower abdomen Objective - Vital Signs Vital signs: Vital Signs Temp 98.1 F 05/13/20 11:25 Pulse 62 05/13/20 11:25 Resp 14 05/13/20 11:25 BP 156/72 05/13/20 11:25 Pulse Ox 98 05/13/20 11:25 Intake & Output 05/12/20 05/13/20 05/13/20 18:59 06:59 18:59 Intake Total 1000 1500 Output Total 50 Balance 950 1500 Weight 40.823 kg Intake: Intake, IV Titration 1000 1500 Amount Dextrose 5%-0.45% NaCl 1, 1000 1500 000 ml @ 125 mls/hr IV . Q8H [facility] Rx#:[id number] Output: Gastric Drainage 50 Other: Voiding Method Toilet Toilet # Voids 3 3 - Constitutional General appearance: Present: cooperative, no acute distress, thin - Gastrointestinal General gastrointestinal: Present: normal bowel sounds, soft Localized gastrointestinal: surgical scar: diffuse (Dressings clean and dry) - Labs CBC & Chem 7: 05/10/20 06:50 05/12/20 07:03 Labs: Abnormal Lab Results - Last 24 Hours (Table) 05/12/20 05/13/20 05/13/20 Range/Units 17:09 00:13 06:12 POC Glucose (mg/dL) 122 H 123 H 124 H (75-99) mg/dL Assessment and Plan (1) SBO (small bowel obstruction) Current Visit: Yes Status: Acute Code(s): K56.609 - UNSP INTESTNL OBST, UNSP TO PARTIAL VERSUS COMPLETE OBST SNOMED Code(s): 093877873 (2) Inguinal hernia of right side with obstruction Current Visit: Yes Status: Acute Code(s): K40.30 - UNIL INGUINAL HERNIA, W OBST, W/O GANGR, NOT SPCF RECUR SNOMED Code(s): 245443090 (3) Acute renal failure Current Visit: Yes Status: Acute Code(s): N17.9 - ACUTE KIDNEY FAILURE, UNSPECIFIED SNOMED Code(s): 60574695 (4) COPD (chronic obstructive pulmonary disease) Current Visit: Yes Status: Acute Code(s): J44.9 - CHRONIC OBSTRUCTIVE PULMONARY DISEASE, UNSPECIFIED SNOMED Code(s): 47617716 (5) Hypochloremia Current Visit: Yes Status: Acute Code(s): E87.8 - OTH DISORDERS OF ELECTROLYTE AND FLUID BALANCE, NEC SNOMED Code(s): 74295636 (6) Hyponatremia Current Visit: Yes Status: Acute Code(s): E87.1 - HYPO-OSMOLALITY AND HYPONATREMIA SNOMED Code(s): 07620235 Plan: The patient is progressing well. We'll convert her IV to a saline lock. Increase her diet. Likely ready for discharge tomorrow.
--- NOTE | 2020-05-13 19:37 | P.PN ---
Progress Note - Text Progress Note Date: 05/13/20 - Chief Complaint Abdominal pain - History of Present Illness Consultation: This is a pleasant 74-year-old patient of Dr. qiu. Chronic stable medical conditions include COPD, hypertension, rheumatoid arthritis. Patient had a bleeding peptic ulcer back in 2019. Patient had EGD done by Dr. Shepard at that time and was found to have her antral ulcer, and esophagitis. Patient presents with 1 week of increasing nausea vomiting. And notices a bulge in the right groin. Patient that had a bowel movement for close to 3 weeks. Patient ER was found to small bowel obstruction. Admitted for the same. NG tube was placed. May 09 underwent right groin herniorrhaphy and correction of small bowel obstruction. Today-NG tube was removed. Passed some flatus. Slight abdominal pain. No nausea vomiting. Has been out of bed. Review of systems: Was done for constitutional, cardiovascular, GI, pulmonary. relevant finding as above Active Medications Atorvastatin Calcium (Lipitor) 20 mg PO DAILY [facility] Last Admin: 05/13/20 07:25 Dose: 20 mg Documented by: Enoxaparin Sodium (Lovenox) 40 mg SQ DAILY [facility] Last Admin: 05/13/20 07:26 Dose: 40 mg Documented by: Metoprolol Tartrate (Lopressor) 25 mg PO DAILY [facility] Last Admin: 05/13/20 07:25 Dose: 25 mg Documented by: Morphine Sulfate (Morphine Sulfate (Inj)) 4 mg IVP Q4HR PRN PRN Reason: Pain Last Admin: 05/13/20 17:12 Dose: 4 mg Documented by: Naloxone HCl (Narcan) 0.2 mg IV Q2M PRN PRN Reason: Opioid Reversal Nicotine (Habitrol 14mg/24hr Patch) 1 patch TRANSDERM DAILY [facility] Last Admin: 05/13/20 07:26 Dose: 1 patch Documented by: Forteo (Teriparatide () 20 Mcg Inj) 20 mcg SQ DAILY [facility] Last Admin: 05/13/20 08:00 Dose: 20 mcg Documented by: Ondansetron HCl (Zofran) 4 mg IVP Q6HR PRN PRN Reason: Nausea And Vomiting Pantoprazole Sodium (Protonix) 40 mg PO AC-BID [facility] Last Admin: 05/13/20 17:15 Dose: 40 mg Documented by: Physical examination: VITAL SIGNS: 98.1, 62, 14, 156/72, 98% room air GENERAL: Laying in bed, awake EYES: Pupils equal. Conjunctiva pale. HEENT: External appearance of nose and ears normal, NECK: JVD not raised; masses not palpable. HEART: First and second heart sounds are normal; no edema. LUNGS: Respiratory rate increased, diminished breath sounds prolonged expiration some wheezing. ABDOMEN: Soft, no tenderness, dressing over the right groin liver spleen not palpable, no masses palpable. Bowel sounds present PSYCH: Alert and oriented x3; mood and affect normal INVESTIGATIONS, reviewed in the clinical context: Potassium 3.6 Previous testing White count 6.4 hemoglobin 11.9 potassium 3.8 bun 40 crit 1.21 albumin 2.8 sodium 1:30 Admission labs bun 54 creatinine 1.61 Computed tomography scan of the abdomen and pelvis-small bowel obstruction felt to be secondary to incarcerated right inguinal hernia with small bowel showing air-fluid level - Assessment: -Incarcerated right inguinal hernia with small bowel obstruction. -Status post right inguinal hernia herniorrhaphy.-NG tube discontinued. -COPD in a current smoker -Chronic nicotine dependence patient cigarette smoker -Essential hypertension -Rheumatoid arthritis -Acute kidney injury possibly ATN prerenal, POA -Severe protein calorie malnutrition patient is BMI 16.5 -Hyponatremia -Severe hypokalemia-corrected Plan: Diet has been advanced per surgery. Care was discussed with the patient. Encouraged to ambulate. Thank you Dr. Sorensen
[2020-05-14] MEDS: MORPHINE SULFATE 4 MG/ML SYRINGE IVP PRN ×4 (01:21→17:18)
[2020-05-14 05:30] VITALS: TEMP 97.8
[2020-05-14] MEDS: PANTOPRAZOLE 40 MG TABLET PO SCH ×2 (07:35→17:19)
[2020-05-14] MEDS: NICOTINE 14MG/24HR PATCH TRANSDERM SCH (07:35)
[2020-05-14] MEDS: ENOXAPARIN 40 MG/0.4 ML SYRINGE SQ SCH (07:35)
[2020-05-14] MEDS: METOPROLOL TARTRATE 25 MG TAB PO SCH (07:35)
[2020-05-14] MEDS: ATORVASTATIN 20 MG TAB PO SCH (07:35)
[2020-05-14] MEDS: FORTEO 20 MCG SQ SCH (07:35)
--- NOTE | 2020-05-14 14:54 | P.PN ---
Subjective Progress Note Date: 05/14/20 Principal diagnosis: Small bowel obstruction due to femoral hernia Patient seen on rounds. She's not passing any flatus today. Complaining of belching and bloating. No vomiting. Objective - Vital Signs Vital signs: Vital Signs Temp 97.8 F 05/14/20 05:00 Pulse 76 05/14/20 08:00 Resp 16 05/14/20 08:00 BP 145/75 05/14/20 05:00 Pulse Ox 98 05/14/20 05:00 Intake & Output 05/13/20 05/14/20 05/14/20 18:59 06:59 18:59 Intake Total 4600 1800 Output Total 500 250 Balance 4100 1550 Weight 40.823 kg Intake: Intake, IV Titration 1000 Amount Dextrose 5%-0.45% NaCl 1, 1000 000 ml @ 125 mls/hr IV . Q8H [facility] Rx#:[id number] Oral 3600 1800 Output: Urine 500 250 Other: Voiding Method Toilet Toilet Toilet # Voids 3 1 4 - Constitutional General appearance: Present: cooperative, no acute distress - Respiratory Respiratory: bilateral: CTA, diminished (At the bases) - Gastrointestinal General gastrointestinal: Present: distended (More distended than yesterday, no tenderness), normal bowel sounds Localized gastrointestinal: surgical scar: RLQ (Incision is intact, clean, dry. No cellulitis or seroma) - Labs CBC & Chem 7: 05/10/20 06:50 05/12/20 07:03 Assessment and Plan (1) SBO (small bowel obstruction) Current Visit: Yes Status: Acute Code(s): K56.609 - UNSP INTESTNL OBST, UNSP TO PARTIAL VERSUS COMPLETE OBST SNOMED Code(s): 466199461 (2) Inguinal hernia of right side with obstruction Current Visit: Yes Status: Acute Code(s): K40.30 - UNIL INGUINAL HERNIA, W OBST, W/O GANGR, NOT SPCF RECUR SNOMED Code(s): 029292706 (3) Acute renal failure Current Visit: Yes Status: Acute Code(s): N17.9 - ACUTE KIDNEY FAILURE, UNSPECIFIED SNOMED Code(s): 28089317 (4) COPD (chronic obstructive pulmonary disease) Current Visit: Yes Status: Acute Code(s): J44.9 - CHRONIC OBSTRUCTIVE PULMONARY DISEASE, UNSPECIFIED SNOMED Code(s): 65950061 (5) Hypochloremia Current Visit: Yes Status: Acute Code(s): E87.8 - OTH DISORDERS OF ELECTROLYTE AND FLUID BALANCE, NEC SNOMED Code(s): 85555565 (6) Hyponatremia Current Visit: Yes Status: Acute Code(s): E87.1 - HYPO-OSMOLALITY AND HYPONATREMIA SNOMED Code(s): 98255196 Plan: The patient is more distended today. Likely due to small bowel edema from this short section of bowel that was in the hernia sac. Encourage activity. Have her limit food intake and do more liquids. We'll reevaluate her tomorrow. Progressing well.
[2020-05-14] MEDS ORDERED: METOPROLOL TARTRATE 25 MG TAB PO SCH (21:00)
--- NOTE | 2020-05-14 22:54 | P.PN ---
Progress Note - Text Progress Note Date: 05/14/20 - Chief Complaint Abdominal pain - History of Present Illness Consultation: This is a pleasant 74-year-old patient of Dr. qiu. Chronic stable medical conditions include COPD, hypertension, rheumatoid arthritis. Patient had a bleeding peptic ulcer back in 2019. Patient had EGD done by Dr. Shepard at that time and was found to have her antral ulcer, and esophagitis. Patient presents with 1 week of increasing nausea vomiting. And notices a bulge in the right groin. Patient that had a bowel movement for close to 3 weeks. Patient ER was found to small bowel obstruction. Admitted for the same. NG tube was placed. May 09 underwent right groin herniorrhaphy and correction of small bowel obstruction. Today-passed flatus. Diet has been advanced. Feeling much better. Has been out of bed. Review of systems: Was done for constitutional, cardiovascular, GI, pulmonary. relevant finding as above Active Medications Atorvastatin Calcium (Lipitor) 20 mg PO DAILY [facility] Last Admin: 05/14/20 07:35 Dose: 20 mg Documented by: Enoxaparin Sodium (Lovenox) 40 mg SQ DAILY [facility] Last Admin: 05/14/20 07:35 Dose: 40 mg Documented by: Metoprolol Tartrate (Lopressor) 25 mg PO BID [facility] Metoprolol Tartrate (Lopressor) 25 mg PO BID [facility] Morphine Sulfate (Morphine Sulfate (Inj)) 4 mg IVP Q4HR PRN PRN Reason: Pain Last Admin: 05/14/20 17:18 Dose: 4 mg Documented by: Naloxone HCl (Narcan) 0.2 mg IV Q2M PRN PRN Reason: Opioid Reversal Nicotine (Habitrol 14mg/24hr Patch) 1 patch TRANSDERM DAILY [facility] Last Admin: 05/14/20 07:35 Dose: 1 patch Documented by: Forteo (Teriparatide () 20 Mcg Inj) 20 mcg SQ DAILY [facility] Last Admin: 05/14/20 07:35 Dose: 20 mcg Documented by: Ondansetron HCl (Zofran) 4 mg IVP Q6HR PRN PRN Reason: Nausea And Vomiting Last Admin: 05/14/20 13:30 Dose: 4 mg Documented by: Pantoprazole Sodium (Protonix) 40 mg PO AC-BID [facility] Last Admin: 05/14/20 17:19 Dose: 40 mg Documented by: Physical examination: VITAL SIGNS: 97.8, 76, 16, 145/75, 98% room air GENERAL: Laying in bed, awake EYES: Pupils equal. Conjunctiva pale. HEENT: External appearance of nose and ears normal, NECK: JVD not raised; masses not palpable. HEART: First and second heart sounds are normal; no edema. LUNGS: Respiratory rate increased, diminished breath sounds prolonged expiration some wheezing. ABDOMEN: Soft, no tenderness, dressing over the right groin liver spleen not p alpable, no masses palpable. Bowel sounds present PSYCH: Alert and oriented x3; mood and affect normal INVESTIGATIONS, reviewed in the clinical context: Potassium 3.6 Previous testing White count 6.4 hemoglobin 11.9 potassium 3.8 bun 40 crit 1.21 albumin 2.8 sodium 1:30 Admission labs bun 54 creatinine 1.61 Computed tomography scan of the abdomen and pelvis-small bowel obstruction felt to be secondary to incarcerated right inguinal hernia with small bowel showing air-fluid level - Assessment: -Incarcerated right inguinal hernia with small bowel obstruction. -Status post right inguinal hernia herniorrhaphy.-NG tube discontinued. Passing flatus -COPD in a current smoker -Chronic nicotine dependence patient cigarette smoker -Essential hypertension -Rheumatoid arthritis -Acute kidney injury possibly ATN prerenal, POA -Severe protein calorie malnutrition patient is BMI 16.5 -Hyponatremia -Severe hypokalemia-corrected Plan: Tolerating a low fiber diet. Medically stable. DC when okay with surgery. Thank you Dr. Sorensen
[2020-05-15] MEDS: METOPROLOL TARTRATE 25 MG TAB PO SCH ×2 (03:37→08:03)
[2020-05-15] MEDS: MORPHINE SULFATE 4 MG/ML SYRINGE IVP PRN (08:01)
[2020-05-15] MEDS: ENOXAPARIN 40 MG/0.4 ML SYRINGE SQ SCH (08:01)
[2020-05-15] MEDS: NICOTINE 14MG/24HR PATCH TRANSDERM SCH (08:01)
[2020-05-15] MEDS: ATORVASTATIN 20 MG TAB PO SCH (08:03)
[2020-05-15] MEDS: PANTOPRAZOLE 40 MG TABLET PO SCH (08:03)
[2020-05-15] MEDS: FORTEO 20 MCG SQ SCH (08:11)
--- NOTE | 2020-05-15 16:34 | P.DS ---
Providers Date of admission: 05/08/20 15:37 Expected date of discharge: 05/15/20 Attending physician: Nanci Sorensen Consults: 05/08/20 22:45 Consult Physician Stat Consulting Provider: Kwan Elizabeth Consult Reason/Comments: medical management, low sodium Do you want consulting provider notified?: Yes Primary care physician: Ancelmo Barba - Discharge Diagnosis(es) (1) SBO (small bowel obstruction) Status: Acute (2) Inguinal hernia of right side with obstruction Status: Acute (3) Acute renal failure Status: Acute (4) COPD (chronic obstructive pulmonary disease) Status: Acute (5) Hypochloremia Status: Acute (6) Hyponatremia Status: Acute Hospital Course: The patient presented after outpatient CT scan showing a small bowel obstruction due to incarcerated femoral hernia. She had some marked electrolyte imbalances. She was hydrated, the electrolyte imbalances were corrected. She was given NG tube decompression. She was subsequently taken to the OR where she underwent a right groin exploration. There was an incarcerated femoral hernia. The small bowel was edematous but viable. She was given prophylactic antibiotics. NG tube decompression was continued over the weekend to the marked distention of her abdomen. The NG tube was unable to be removed. She was gradually increased on diet and activity. On the she began to be fairly distended but began passing large amount of flatus later that day. Postop day by May 15 she was doing well. Tolerating a diet. Minimal discomfort. Breathing was okay. Electrolytes had been corrected. She is felt to be stable for discharge Patient Condition at Discharge: Good Plan - Discharge Summary Discharge Rx Participant: No New Discharge Prescriptions: New Nicotine 14Mg/24Hr Patch [Habitrol] 1 patch TRANSDERM DAILY #30 patch Continue Cholecalciferol [Vitamin D3 (25 Mcg = 1000 Iu)] 5,000 unit PO DAILY oxyCODONE-APAP 7.5-325MG [Percocet 7.5-325 mg] 1 tab PO QID Teriparatide [Forteo] 20 mcg SQ DAILY Potassium 99 mg PO BID Magnesium Oxide [Mag-Ox] 250 mg PO BID Pantoprazole [Protonix] 40 mg PO AC-BID #60 tablet. Ondansetron [Zofran ODT] 4 mg PO TID PRN PRN Reason: Nausea And Vomiting Atorvastatin [Lipitor] 20 mg PO DAILY Fluticasone Nasal [place] [Flonase Nasal [place]] 1 spray EA NOSTRIL DAILY PRN PRN Reason: Allergy Symptoms Changed Metoprolol Tartrate [Lopressor] 25 mg PO BID #60 tab Discontinued Loratadine 10 mg PO DAILY Fluconazole [Diflucan] 150 mg PO DAILY guaiFENesin [Mucinex] 600 mg PO BID Fexofenadine HCl [Jeri Allergy] 180 mg PO DAILY Discharge Medication List Cholecalciferol [Vitamin D3 (25 Mcg = 1000 Iu)] 5,000 unit PO DAILY 05/27/19 [History] Magnesium Oxide [Mag-Ox] 250 mg PO BID 05/27/19 [History] Potassium 99 mg PO BID 05/27/19 [History] Teriparatide [Forteo] 20 mcg SQ DAILY 05/27/19 [History] oxyCODONE-APAP 7.5-325MG [Percocet 7.5-325 mg] 1 tab PO QID 05/27/19 [History] Pantoprazole [Protonix] 40 mg PO AC-BID #60 tablet. 05/30/19 [Rx] Atorvastatin [Lipitor] 20 mg PO DAILY 05/08/20 [History] Fluticasone Nasal [place] [Flonase Nasal [place]] 1 spray EA NOSTRIL DAILY PRN 05/08/20 [History] Ondansetron [Zofran ODT] 4 mg PO TID PRN 05/08/20 [History] Metoprolol Tartrate [Lopressor] 25 mg PO BID #60 tab 05/14/20 [Rx] Nicotine 14Mg/24Hr Patch [Habitrol] 1 patch TRANSDERM DAILY #30 patch 05/14/20 [Rx] Follow up Appointment(s)/Referral(s): Ancelmo Barba MD [Primary Care Provider] - 05/19/20 1:30 am Patient Instructions/Handouts: Metoprolol (By mouth), Nicotine (Absorbed through the skin), Low Fiber Diet (DC) Activity/Diet/Wound Care/Special Instructions: You may shower. No tub bath for 1 week. No lifting more than 10#. No driving for 1 week. Expect some bruising by the incision. Call if you have concerns about infection. Low fiber diet for 2 weeks. Discharge Disposition: HOME SELF-CARE
--- NOTE | 2020-05-15 20:08 | P.PN ---
Progress Note - Text Progress Note Date: 05/15/20 - Chief Complaint Abdominal pain - History of Present Illness Consultation: This is a pleasant 74-year-old patient of Dr. qiu. Chronic stable medical conditions include COPD, hypertension, rheumatoid arthritis. Patient had a bleeding peptic ulcer back in 2019. Patient had EGD done by Dr. Shepard at that time and was found to have her antral ulcer, and esophagitis. Patient presents with 1 week of increasing nausea vomiting. And notices a bulge in the right groin. Patient that had a bowel movement for close to 3 weeks. Patient ER was found to small bowel obstruction. Admitted for the same. NG tube was placed. May 09 underwent right groin herniorrhaphy and correction of small bowel obstruction. Today-passing a lot of flatus. Eating some. No bowel movement. No nausea vomiting. Abdomen not distended. Feeling well. Review of systems: Was done for constitutional, cardiovascular, GI, pulmonary. relevant finding as above Current medications reviewed in today's electronic records Physical examination: VITAL SIGNS: 97.8, 64, 18, 110/67, 95% room air GENERAL: Sitting up in bed, awake, comfortable EYES: Pupils equal. Conjunctiva pale. HEENT: External appearance of nose and ears normal, NECK: JVD not raised; masses not palpable. HEART: First and second heart sounds are normal; no edema. LUNGS: Respiratory rate increased, diminished breath sounds ABDOMEN: Soft, no tenderness, dressing over the right groin liver spleen not palpable, no masses palpable. Bowel sounds present PSYCH: Alert and oriented x3; mood and affect normal INVESTIGATIONS, reviewed in the clinical context: Potassium 3.6 Previous testing White count 6.4 hemoglobin 11.9 potassium 3.8 bun 40 crit 1.21 albumin 2.8 sodium 1:30 Admission labs bun 54 creatinine 1.61 Computed tomography scan of the abdomen and pelvis-small bowel obstruction felt to be secondary to incarcerated right inguinal hernia with small bowel showing air-fluid level - Assessment: -Incarcerated right inguinal hernia with small bowel obstruction. -Status post right inguinal hernia herniorrhaphy.-NG tube discontinued. Passing flatus -COPD in a current smoker -Chronic nicotine dependence patient cigarette smoker -Essential hypertension -Rheumatoid arthritis -Acute kidney injury possibly ATN prerenal, POA -Severe protein calorie malnutrition patient is BMI 16.5 -Hyponatremia -Severe hypokalemia-corrected Plan: -Clinically doing well. Has not had a bowel movement. 2 passing a lot of flatus. Oral intake slowly improving. DC planning as per Dr. Sorensen. Patient again reminded about smoking cessation. Thank you Dr. Sorensen
[2020-05-16 06:15] VITALS: BP 110/67; PULSE 64; RESP 18
== END 2020-05-15 15:00 | disposition home or self-care (01) | DRG 350 ==
LOC: EC 15:04 → 5NMEDONC 15:37
PROVIDERS: ADMIT Surgery; ATTEND Surgery
PROC: 0YU70JZ Supplement Right Femoral Region with Synthetic Substitute, Open Approach (ICD-10-PCS; principal; 2020-05-09 11:00)
DX: K41.30 Unilateral femoral hernia, with obstruction, without gangrene, not specified as recurrent (principal); E43 Unspecified severe protein-calorie malnutrition; N17.0 Acute kidney failure with tubular necrosis; K40.30 Unilateral inguinal hernia, with obstruction, without gangrene, not specified as recurrent; E87.1 Hypo-osmolality and hyponatremia; Z68.1 Body mass index [BMI] 19.9 or less, adult; F17.210 Nicotine dependence, cigarettes, uncomplicated; E87.6 Hypokalemia; E87.8 Other disorders of electrolyte and fluid balance, not elsewhere classified; I10 Essential (primary) hypertension; J44.9 Chronic obstructive pulmonary disease, unspecified; Z87.11 Personal history of peptic ulcer disease; M06.9 Rheumatoid arthritis, unspecified; Z79.899 Other long term (current) drug therapy; Z98.49 Cataract extraction status, unspecified eye; Z88.1 Allergy status to other antibiotic agents; Z88.0 Allergy status to penicillin; Z11.59 Encounter for screening for other viral diseases
CPT/HCPCS: 36415; 71250; 74176; 80048; 80053; 82150; 82550; 82565; 83605; 83690; 83735; 84520; 85025; 85027; 85610; 85730; 93005; 96361; 96374; 96375; 99285

== ENCOUNTER → 2023-07-04 | Outpatient (CLI) | payer MEDICARE ==
[2023-07-04 16:51] LABS: African American GFR (CKD) 85 (>60 ml/min/1.73 sqM); Blood Urea Nitrogen 27 mg/dL (7-17); Non-African American GFR(CKD) 74 (>60 ml/min/1.73 sqM)
--- NOTE | 2023-07-05 09:10 | CT ---
EXAMINATION TYPE: CT abdomen pelvis w con DATE OF EXAM: 07/04/2023 COMPARISON: 05/08/2020 HISTORY: abnormal lab values and weight loss. CT DLP: 330.10 mGycm Automated exposure control for dose reduction was used. CONTRAST: CT scan of the abdomen pelvis is performed with IV Contrast, patient injected with mL of Isovue 300. FINDINGS- LUNG BASES- No significant abnormality is appreciated. Emphysematous changes noted. Heart mildly prominent coronary artery calcifications are small hiatal h ernia. LIVER/GB- mild intrahepatic biliary ductal dilation. Calcification near the falciform ligament. The re are multiple hypodensities within the liver most of cysts. Intermediate density in the dependent portion of the gallbladder could represents sludge or stones PANCREAS- dilation extrahepatic bile duct and pancreatic duct. There is soft tissue fullness in the ampullary region. Recommend ERCP or MRCP SPLEEN- No gross abnormality is seen. ADRENALS- left adrenal nodularity most likely on the basis of an adenoma. KIDNEYS/BLADDER-subcentimeter hypodensities within the kidneys and extremity criteria is recommended ultrasound correlation. No hydronephrosis. BOWEL- small hiatal hernia gastric wall particularly along the distal body and antrum appear to be c ircumferentially thickened. Diverticulosis of colon. Extensive retained fecal debris throughout the c olon. Correlate LYMPH NODES- No greater than 1cm abdominal or pelvic lymph nodes are appreciated. OSSEOUS STRUCTURES- multilevel hypertrophic and degenerative change of the spine with scoliosis. Findings suggest previous surgery involving anterior pelvic wall OTHER- aorta of normal caliber with a retrocaval aortic left renal vein. IMPRESSION- 1. Circumferential gastric body and antrum wall thickening could be on the basis of gastritis. Recomm end EGD to exclude mucosal lesion\mass. 2. Intra and extrahepatic biliary ductal dilation and pancreatic duct dilation. Recommend either ERCP or MRCP to exclude obstruction sludge or mass. There is soft tissue fullness in the ampulla of Vater . Cholelithiasis versus gallbladder sludge.
== END | disposition home or self-care (01) ==
LOC: RADCTMAIN 15:52
DX: K31.89 Other diseases of stomach and duodenum (principal); K86.89 Other specified diseases of pancreas; R63.4 Abnormal weight loss; K83.8 Other specified diseases of biliary tract
CPT/HCPCS: 82565; 84520; 74177; 36415; Q9967

== ENCOUNTER 2023-12-08 03:14 | Inpatient (IN) | payer MEDICARE ==
[2023-12-08 03:48] LABS: HCT 42.9 % (34.0-46.0); HGB 14.5 gm/dL (11.4-16.0); MCH 32.1 pg (25.0-35.0); MCHC 33.8 g/dL (31.0-37.0); Platelet Count 337 k/uL (150-450); RBC 4.51 m/uL (3.80-5.40); RDW 12.7 % (11.5-15.5); WBC 5.9 k/uL (3.8-10.6)
[2023-12-08 03:57] LABS: ALT 48 U/L (4-34); AST 56 U/L (14-36); African American GFR (CKD) >90 (>60 ml/min/1.73 sqM); Albumin 2.8 g/dL (3.5-5.0); Alkaline Phosphatase 81 U/L (38-126); Anion Gap 5 mmol/L; Blood Urea Nitrogen 27 mg/dL (7-17); Calcium 8.4 mg/dL (8.4-10.2); Carbon Dioxide 25 mmol/L (22-30); Chloride 105 mmol/L (98-107); Glucose 110 mg/dL (74-99); Lipase 11 U/L (23-300); Non-African American GFR(CKD) 86 (>60 ml/min/1.73 sqM); Potassium 4.1 mmol/L (3.5-5.1); Sodium 135 mmol/L (137-145); Total Bilirubin 0.7 mg/dL (0.2-1.3); Total Protein 5.6 g/dL (6.3-8.2)
--- NOTE | 2023-12-08 03:57 | XR ---
EXAMINATION TYPE: XR chest 2V DATE OF EXAM: 12/08/2023 COMPARISON: Prior CT May 08, 2020 HISTORY: Cough TECHNIQUE: Frontal and lateral views of the chest are obtained. FINDINGS: Background chronic emphysematous changes are redemonstrated. There is no suspicious for ne w focal air space opacity, pleural effusion, or pneumothorax seen. The cardiac silhouette size is st able and within normal limits. The osseous structures are intact. Free air below the diaphragm is n oted. IMPRESSION: No acute cardiopulmonary process. Free air is felt present. Critical results communicated to ordering emergency room physician via telephone at time of dictation .
--- NOTE | 2023-12-08 03:59 | XR ---
EXAMINATION TYPE: XR KUB DATE OF EXAM: 12/08/2023 3:47 AM CLINICAL HISTORY: Generalized body pain and cramping TECHNIQUE: Single upright view of the abdomen is obtained. COMPARISON: CT abdomen and pelvis July 04, 2023 FINDINGS: Scattered gas is seen in non-distended small bowel loops. Gas and fecal material is seen in non-distended colon. Hepatomegaly redemonstrated. Levoconvex scoliosis redemonstrated. Free air is n oted. Lung bases are clear. IMPRESSION: Overall nonobstructive bowel gas pattern. Free air is noted. Critical results communicated to ordering emergency room physician via telephone at time of dictation .
--- NOTE | 2023-12-08 04:09 | CT ---
EXAMINATION TYPE: CT abdomen pelvis w con DATE OF EXAM: 12/08/2023 HISTORY: FREE AIR. INTENSE ABD PAIN & CRAMPING CT DLP: 393.5mGycm Automated Exposure Control for Dose Reduction was Utilized. CONTRAST: CT scan of the abdomen and pelvis is performed with IV Contrast, patient injected with 100 mL of Isov ue 300. COMPARISON: CT abdomen and pelvis July 04, 2023 FINDINGS: LUNG BASES: Coronary stent in the RCA distribution is suspected. LIVER/GB: Near 1.0 cm simple cyst in the liver axial image 22 redemonstrated. Some calcification grace g the interlobar fissure axial image 18 redemonstrated. PANCREAS: No significant abnormality is seen. SPLEEN: No significant abnormality is seen. ADRENALS: Thickening of left adrenal gland again seen favoring benign lipid rich hyperplasia. KIDNEYS: No significant abnormality is seen. BOWEL: Suboptimal evaluation without enteric contrast and patient having little internal fat. Small-s ized hiatal hernia redemonstrated. Moderate prominence of the stomach. No abnormal small or large bow el dilatation. Severe wall thickening in the gastric antrum axial image 38 for reference. Distal colo yann diverticulosis redemonstrated. UTERUS/ADNEXA: No gross abnormality seen. LYMPH NODES: No greater than 1cm abdominal or pelvic lymph nodes are appreciated. OSSEOUS STRUCTURES: No significant abnormality is seen. OTHER: Free air is identified anterior to the bladder and most prominent anteriorly in the upper abdo men. IMPRESSION: Free air is confirmed as suspected on radiographs. Gastric or proximal duodenal ulcer per foration is suspected given severe gastric antral wall thickening again seen similar to prior.
[2023-12-08] MEDS: HYDROmorphone 1 MG/ML 1 ML SYRINGE IVP STA (04:12)
[2023-12-08 04:13] LABS: Band Neutrophils % 62 %; Lymphocytes # (M) 0.12 k/uL (1.0-4.8); Monocytes # (M) 0.41 k/uL (0-1.0); Neutrophils % (M) 29 %; Nucleated Red Blood Cells 0 /100 WBC (0-0); Total Cells Counted 200
[2023-12-08 04:14] LABS: Toxic Granulation Present; Toxic Vacuolation Present
[2023-12-08] MEDS: ONDANSETRON 4 MG/2 ML VIAL IVP STA (04:16)
[2023-12-08] MEDS ORDERED: NALOXONE 0.4 MG/ML 1 ML VIAL IV PRN (04:19)
[2023-12-08] MEDS: PANTOPRAZOLE 40 MG/10 ML VIAL IVP ONE (04:20)
[2023-12-08] MEDS: metroNIDAZOLE-NS PMX 500 MG in SALINE 1 100ML.BAG IVPB SCH (04:20)
--- NOTE | 2023-12-08 04:21 | ED ---
Abdominal Pain HPI - General Chief Complaint: Abdominal Pain Stated Complaint: abd pain Time Seen by Provider: 12/08/23 03:41 Source: patient Mode of arrival: wheelchair Limitations: no limitations - History of Present Illness Initial Comments: Latoya is a 78-year-old female who presents to the ER today for evaluation of a severe epigastric abdominal pain. Patient states that she has a history of gastric ulcers, she has frequent abdominal pain. She has had worsening abdominal pain since Tuesday however last night pain became severe and intolerable she was unable to sleep throughout the night which prompted her to ask her son to bring her to the hospital for evaluation. - Related Data Home Medications Medication Instructions Recorded Confirmed Cholecalciferol [Vitamin D3 (25 5,000 unit PO DAILY 05/27/19 05/08/20 Mcg = 1000 Iu)] Magnesium Oxide [Mag-Ox] 250 mg PO BID 05/27/19 05/08/20 Potassium 99 mg PO BID 05/27/19 05/08/20 Teriparatide [Forteo] 20 mcg SQ DAILY 05/27/19 05/08/20 oxyCODONE-APAP 7.5-325MG [Percocet 1 tab PO QID 05/27/19 05/08/20 7.5-325 mg] Atorvastatin [Lipitor] 20 mg PO DAILY 05/08/20 05/08/20 Fluticasone Nasal [place] [Flonase 1 spray EA NOSTRIL DAILY PRN 05/08/20 05/08/20 Nasal [place]] Ondansetron [Zofran ODT] 4 mg PO TID PRN 05/08/20 05/08/20 Previous Rx's Medication Instructions Recorded Pantoprazole [Protonix] 40 mg PO AC-BID #60 tablet. 05/30/19 Metoprolol Tartrate [Lopressor] 25 mg PO BID #60 tab 05/14/20 Nicotine 14Mg/24Hr Patch [Habitrol] 1 patch TRANSDERM DAILY #30 patch 05/14/20 Allergies Allergy/AdvReac Type Severity Reaction Status Date / Time alendronate sodium Allergy Unknown Verified 12/08/23 03:29 [From Fosamax] erythromycin base Allergy Unknown Verified 12/08/23 03:29 gatifloxacin [From Tequin] Allergy Unknown Verified 12/08/23 03:29 Penicillins Allergy Unknown Verified 02/01/24 03:29 tetracycline Allergy Unknown Verified 12/08/23 03:29 Review of Systems ROS Statement: Those systems with pertinent positive or pertinent negative responses have been documented in the HPI. ROS Other: All systems not noted in ROS Statement are negative. Past Medical History Past Medical History: COPD, Hypertension, Rheumatoid Arthritis (RA) Additional Past Medical History / Comment(s): bleeding ulcer History of Any Multi-Drug Resistant Organisms: None Reported Past Surgical History: Tubal Ligation Additional Past Surgical History / Comment(s): Eye surgery (cataracts removed). Past Anesthesia/Blood Transfusion Reactions: No Reported Reaction Past Psychological History: No Psychological Hx Reported Smoking Status: Current every day smoker Past Alcohol Use History: Rare Past Drug Use History: None Reported - Past Family History Mother Family Medical History: No Reported History Father Family Medical History: Cancer General Exam Limitations: no limitations General appearance: alert, in distress, cachectic Head exam: Present: atraumatic Eye exam: Present: normal appearance, PERRL Respiratory exam: Present: wheezes Cardiovascular Exam: Present: tachycardia GI/Abdominal exam: Present: guarding, rigid, diminished bowel sounds Rectal exam: Present: deferred Neurological exam: Present: alert, oriented X3 Skin exam: Present: warm, dry Course Vital Signs 12/08/23 12/08/23 12/08/23 03:26 04:15 05:00 Temperature 98.8 F Pulse Rate 101 H 89 87 Respiratory 20 20 24 Rate Blood Pressure 157/83 177/84 160/73 O2 Sat by Pulse 94 L 99 97 Oximetry Medical Decision Making - Medical Decision Making Was pt. sent in by a medical professional or institution (, PA, DIRECTOR OF HEMOPHILIA, urgent care, hospital, or [facility]...) When possible be specific @ -[No] Did you speak to anyone other than the patient for history (EMS, parent, family, police, friend...)? What history was obtained from this source @ -[No] Did you review nursing and triage notes (agree or disagree)? Why? @ -[I reviewed and agree with nursing and triage notes] Were old charts reviewed (outside hosp., previous admission, EMS record, old EKG, old radiological studies, urgent care reports/EKG's, [facility] records)? Report findings @ -Previous notes and endoscopy results were reviewed Differential Diagnosis (chest pain, altered mental status, abdominal pain women, abdominal pain men, vaginal bleeding, weakness, fever, dyspnea, syncope, headache, dizziness, GI bleed, back pain, seizure, CVA, palpatations, mental health)? @ -Differential Abdominal Pain Women: Appendicitis, Cholecystitis, diverticulosis, ischemic bowel, pancreatitis, hepatitis, UTI, gastroenteritis, AAA, incarcerated hernia, bowel obstruction, constipation, inflammatory bowel, hepatitis, peptic ulcer disease, splenic infarction, perforated viscus, vulvitis, ovarian torsion, PID, kidney stone, placenta abruption, this is not meant to be an all-inclusive list EKG interpreted by me (3pts min.). @ -[As above] X-rays interpreted by me (1pt min.). @Chest x-ray with no acute process in the chest, there is free air under the diaphragm Abdominal x-ray with free air under the diaphragm no signs of bowel obstruction no air-fluid levels CT interpreted by me (1pt min.). @Abdominal CT with free air U/S interpreted by me (1pt. min.). @ -[None done] What testing was considered but not performed or refused? (CT, X-rays, U/S, labs)? Why? @ -[None] What meds were considered but not given or refused? Why? @ -[None] Did you discuss the management of the patient with other professionals (prof kerr i.eMathieu Sharif, PA, DIRECTOR OF HEMOPHILIA, lab, RT, psych nurse, transition social worker, manager business management, teacher, court officer, employment case manager)? Give summary @Discussed with Dr. Polanco recommends admission to Dr. Lentz Was smoking cessation discussed for >3mins.? @ -[No] Was critical care preformed (if so, how long)? @ -Yes, 30 minutes Were there social determinants of health that impacted care today? How? (Homelessness, low income, unemployed, alcoholism, drug addiction, transportation, low edu. Level, literacy, decrease access to med. care, usp, rehab)? @ -[No] Was there de-escalation of care discussed even if they declined (Discuss DNR or withdrawal of care, Hospice)? DNR status @ -[No] What co-morbidities impacted this encounter? (DM, HTN, Smoking, COPD, CAD, Cancer, CVA, ARF, Chemo, Hep., AIDS, mental health diagnosis, sleep apnea, morbid obesity)? @ -Smoking, COPD Was patient admitted / discharged? Hospital course, mention meds given and route, prescriptions, significant lab abnormalities, going to OR and other pertinent info. @ -Admit The patient was seen and admitted, history was obtained from the patient and review of medical record. Patient was taken from triage to x-ray where there was obvious free air under the diaphragm and the patient was taken to CT scan for further imaging. Patient's chart was reviewed she has a history of gastric ulcers in the past. CT was suggestive of a gastric or duodenal perforation. Vital signs and labs are stable. Patient care was discussed with Dr. Marcos Preciado who recommends admission IV fluids antibiotics n.p.o. and Dr. Lentz will evaluate this patient today Undiagnosed new problem with uncertain prognosis? @ -Yes Drug Therapy requiring intensive monitoring for toxicity (Heparin, Nitro, Insulin, Cardizem)? @ -[No] Were any procedures done? @ -[No] Diagnosis/symptom? @ -Perforated viscus Acute, or Chronic, or Acute on Chronic? @ -Acute Uncomplicated (without systemic symptoms) or Complicated (systemic symptoms)? @ -[default] Side effects of treatment? @ -[No] Exacerbation, Progression, or Severe Exacerbation? @ -[No] Poses a threat to life or bodily function? How? (Chest pain, [place], [place], pneumonia, PE, COPD, DKA, ARF, appy, cholecystitis, CVA, Diverticulitis, Homicidal, Suicidal, threat to staff... and all critical care pts) @ -Yes can advance to peritonitis sepsis, septic shock and . - Lab Data Result diagrams: 12/08/23 03:32 12/08/23 03:32 Lab Results 12/08/23 12/08/23 12/08/23 Range/Units 03:32 03:32 03:32 WBC 5.9 (3.8-10.6) k/uL RBC 4.51 (3.80-5.40) m/uL Hgb 14.5 (11.4-16.0) gm/dL Hct 42.9 (34.0-46.0) % MCV 95.0 (80.0-100.0) fL MCH 32.1 (25.0-35.0) pg MCHC 33.8 (31.0-37.0) g/dL RDW 12.7 (11.5-15.5) % Plt Count 337 (150-450) k/uL MPV 8.0 Neutrophils % (Manual) 29 % Band Neuts % (Manual) 62 % Lymphocytes % (Manual) 2 % Monocytes % (Manual) 7 % Neutrophils # (Manual) 5.30 (1.3-7.7) k/uL Lymphocytes # (Manual) 0.12 L (1.0-4.8) k/uL Monocytes # (Manual) 0.41 (0-1.0) k/uL Nucleated RBCs 0 (0-0) /100 WBC Manual Slide Review Performed Toxic Granulation Present Toxic Vacuolation Present PT (10.0-12.5) sec INR (<1.2) APTT (22.0-30.0) sec Sodium 135 L (137-145) mmol/L Potassium 4.1 (3.5-5.1) mmol/L Chloride 105 (98-107) mmol/L Carbon Dioxide 25 (22-30) mmol/L Anion Gap 5 mmol/L BUN 27 H (7-17) mg/dL Creatinine 0.66 (0.52-1.04) mg/dL Est GFR (CKD-EPI)AfAm >90 (>60 ml/min/1.73 sqM) Est GFR (CKD-EPI)NonAf 86 (>60 ml/min/1.73 sqM) Glucose 110 H (74-99) mg/dL Plasma Lactic Acid Asher (0.7-2.0) mmol/L Calcium 8.4 (8.4-10.2) mg/dL Total Bilirubin 0.7 (0.2-1.3) mg/dL AST 56 H (14-36) U/L ALT 48 H (4-34) U/L Alkaline Phosphatase 81 (38-126) U/L Total Protein 5.6 L (6.3-8.2) g/dL Albumin 2.8 L (3.5-5.0) g/dL Amylase <30 L (30-110) U/L Lipase 11 L (23-300) U/L Influenza Type A (PCR) Not Detected (Not Detectd) Influenza Type B (PCR) Not Detected (Not Detectd) RSV (PCR) Not Detected (Not Detectd) SARS-CoV-2 (PCR) Not Detected (Not Detectd) 12/08/23 12/08/23 Range/Units 03:37 04:10 WBC (3.8-10.6) k/uL RBC (3.80-5.40) m/uL Hgb (11.4-16.0) gm/dL Hct (34.0-46.0) % MCV (80.0-100.0) fL MCH (25.0-35.0) pg MCHC (31.0-37.0) g/dL RDW (11.5-15.5) % Plt Count (150-450) k/uL MPV Neutrophils % (Manual) % Band Neuts % (Manual) % Lymphocytes % (Manual) % Monocytes % (Manual) % Neutrophils # (Manual) (1.3-7.7) k/uL Lymphocytes # (Manual) (1.0-4.8) k/uL Monocytes # (Manual) (0-1.0) k/uL Nucleated RBCs (0-0) /100 WBC Manual Slide Review Toxic Granulation Toxic Vacuolation PT 10.9 (10.0-12.5) sec INR 1.0 (<1.2) APTT 22.2 (22.0-30.0) sec Sodium (137-145) mmol/L Potassium (3.5-5.1) mmol/L Chloride (98-107) mmol/L Carbon Dioxide (22-30) mmol/L Anion Gap mmol/L BUN (7-17) mg/dL Creatinine (0.52-1.04) mg/dL Est GFR (CKD-EPI)AfAm (>60 ml/min/1.73 sqM) Est GFR (CKD-EPI)NonAf (>60 ml/min/1.73 sqM) Glucose (74-99) mg/dL Plasma Lactic Acid Asher 1.3 (0.7-2.0) mmol/L Calcium (8.4-10.2) mg/dL Total Bilirubin (0.2-1.3) mg/dL AST (14-36) U/L ALT (4-34) U/L Alkaline Phosphatase (38-126) U/L Total Protein (6.3-8.2) g/dL Albumin (3.5-5.0) g/dL Amylase (30-110) U/L Lipase (23-300) U/L Influenza Type A (PCR) (Not Detectd) Influenza Type B (PCR) (Not Detectd) RSV (PCR) (Not Detectd) SARS-CoV-2 (PCR) (Not Detectd) - EKG Data -: EKG Interpreted by Me EKG Comments: EKG interpreted by me, EKG obtained due to epigastric pain, EKG obtained at 5:06 AM, rate is 85 rhythm is sinus with evidence of left ventricular hypertrophy. [place] 140 QRS 85 QTc 423 there is no acute ST elevations or depressions no evidence of acute ischemia or infarction. Critical Care Time Critical Care Time: Yes Total Critical Care Time: 30 Disposition Clinical Impression: Perforated viscus Disposition: ADMITTED IP TO THIS HOSP Condition: Critical Is patient prescribed a controlled substance at d/c from ED?: No
[2023-12-08 04:24] LABS: Amylase <30 U/L (30-110)
[2023-12-08] MEDS: cefTRIAXone IN SWFI 1,000 MG/10 ML SYRINGE IVP STA (04:25)
[2023-12-08] MEDS: SODIUM CHLORIDE 0.9% 1,000 ML IV ONE (04:27)
[2023-12-08 04:41] LABS: Prothrombin Time 10.9 sec (10.0-12.5)
[2023-12-08 04:48] LABS: Partial Thromboplastin Time 22.2 sec (22.0-30.0)
[2023-12-08] MEDS: SODIUM CHLORIDE 0.9% 1,000 ML IV SCH (05:58)
--- NOTE | 2023-12-08 08:25 | P.GSHP ---
History of Present Illness H&P Date: 12/08/23 Chief Complaint: Perforated viscus 78-year-old female presents to the ER this morning with severe upper abdominal pain. Pain is gradually increased over the last several days. Decreased appetite for the last 2 weeks. Patient with history of previous antral ulceration. Last EGD 4 to 5 years ago showed it was healed. No recent endoscopy. Apparently patient remains on antiacid therapy. White blood cell count and lactic acid normal. Liver enzymes slightly elevated. Pain improved somewhat with IV Dilaudid however it has returned since then. CAT scan was performed showing large volume free air. Some free fluid. More of the free air is present in the upper abdomen. Past Medical History Past Medical History: COPD, Hypertension, Rheumatoid Arthritis (RA) Additional Past Medical History / Comment(s): bleeding ulcer History of Any Multi-Drug Resistant Organisms: None Reported Past Surgical History: Tubal Ligation Additional Past Surgical History / Comment(s): Eye surgery (cataracts removed). Past Anesthesia/Blood Transfusion Reactions: No Reported Reaction Past Psychological History: No Psychological Hx Reported Smoking Status: Current every day smoker Past Alcohol Use History: Rare Past Drug Use History: None Reported - Past Family History Mother Family Medical History: No Reported History Father Family Medical History: Cancer Medications and Allergies Home Medications Medication Instructions Recorded Confirmed Type oxyCODONE-APAP 7.5-325MG [Percocet 1 tab PO Q6H PRN 05/27/19 12/08/23 History 7.5-325 mg] Pantoprazole [Protonix] 40 mg PO AC-BID #60 tablet. 05/30/19 12/08/23 Rx Atorvastatin [Lipitor] 20 mg PO DAILY 05/08/20 12/08/23 History Metoprolol Tartrate [Lopressor] 25 mg PO BID #60 tab 05/14/20 12/08/23 Rx Albuterol Sulfate [Albuterol 2 puff PO RT-Q4H PRN 12/08/23 12/08/23 History Sulfate Hfa] Baclofen 10 mg PO HS 12/08/23 12/08/23 History Budesonide/Glycopyr/Formoterol 2 puff INHALATION RT-BID 12/08/23 12/08/23 History [Breztri Aerosphere Inhaler] Hydroxychloroquine Sulfate 200 mg PO BID 12/08/23 12/08/23 History [Plaquenil] Montelukast [Singulair] 10 mg PO DAILY 12/08/23 12/08/23 History Promethazine/Dextromethorphan 5 ml PO Q4H PRN 12/08/23 12/08/23 History [Promethazine-Dm Syrup] cefUROXime axetiL [Ceftin] 500 mg PO BID 12/08/23 12/08/23 History Allergies Allergy/AdvReac Type Severity Reaction Status Date / Time alendronate sodium Allergy Unknown Verified 12/08/23 07:55 [From Fosamax] erythromycin base Allergy Unknown Verified 12/08/23 07:55 gatifloxacin [From Tequin] Allergy Unknown Verified 12/08/23 07:55 Penicillins Allergy Unknown Verified 12/08/23 07:55 tetracycline Allergy Unknown Verified 12/08/23 07:55 Surgical - Exam Vital Signs Temp Pulse Resp BP Pulse Ox 98.8 F 101 H 20 157/83 94 L 12/08/23 03:26 12/08/23 03:26 12/08/23 03:26 12/08/23 03:26 12/08/23 03:26 Physical exam: General: Malnourished appearing elderly female in some distress HEENT: Normocephalic, sclerae nonicteric Abdomen: Mild distention, diffuse tenderness with guarding Extremities: No edema Neuro: Alert and oriented Results - Labs 12/08/23 03:32 12/08/23 03:32 Abnormal Lab Results - Last 24 Hours (Table) 12/08/23 12/08/23 Range/Units 03:32 03:32 Lymphocytes # (Manual) 0.12 L (1.0-4.8) k/uL Sodium 135 L (137-145) mmol/L BUN 27 H (7-17) mg/dL Glucose 110 H (74-99) mg/dL AST 56 H (14-36) U/L ALT 48 H (4-34) U/L Total Protein 5.6 L (6.3-8.2) g/dL Albumin 2.8 L (3.5-5.0) g/dL Amylase <30 L (30-110) U/L Lipase 11 L (23-300) U/L Diabetes panel 12/08/23 Range/Units 03:32 Sodium 135 L (137-145) mmol/L Potassium 4.1 (3.5-5.1) mmol/L Chloride 105 (98-107) mmol/L Carbon Dioxide 25 (22-30) mmol/L BUN 27 H (7-17) mg/dL Creatinine 0.66 (0.52-1.04) mg/dL Glucose 110 H (74-99) mg/dL Calcium 8.4 (8.4-10.2) mg/dL AST 56 H (14-36) U/L ALT 48 H (4-34) U/L Alkaline Phosphatase 81 (38-126) U/L Total Protein 5.6 L (6.3-8.2) g/dL Albumin 2.8 L (3.5-5.0) g/dL Calcium panel 12/08/23 Range/Units 03:32 Calcium 8.4 (8.4-10.2) mg/dL Albumin 2.8 L (3.5-5.0) g/dL Pituitary panel 12/08/23 Range/Units 03:32 Sodium 135 L (137-145) mmol/L Potassium 4.1 (3.5-5.1) mmol/L Chloride 105 (98-107) mmol/L Carbon Dioxide 25 (22-30) mmol/L BUN 27 H (7-17) mg/dL Creatinine 0.66 (0.52-1.04) mg/dL Glucose 110 H (74-99) mg/dL Calcium 8.4 (8.4-10.2) mg/dL Adrenal panel 12/08/23 Range/Units 03:32 Sodium 135 L (137-145) mmol/L Potassium 4.1 (3.5-5.1) mmol/L Chloride 105 (98-107) mmol/L Carbon Dioxide 25 (22-30) mmol/L BUN 27 H (7-17) mg/dL Creatinine 0.66 (0.52-1.04) mg/dL Glucose 110 H (74-99) mg/dL Calcium 8.4 (8.4-10.2) mg/dL Total Bilirubin 0.7 (0.2-1.3) mg/dL AST 56 H (14-36) U/L ALT 48 H (4-34) U/L Alkaline Phosphatase 81 (38-126) U/L Total Protein 5.6 L (6.3-8.2) g/dL Albumin 2.8 L (3.5-5.0) g/dL Assessment and Plan (1) Perforated viscus Narrative/Plan: 78-year-old female with perforated viscus. Patient appears ill. BMI 17.9. Mildly tachypneic in preop. Options and clinical scenario discussed in detail with the patient and her son. Will proceed with exploratory laparotomy, possible bowel resection, possible ostomy based on intraoperative findings. Risks of bleeding, infection, recurrent ulcer disease, leak, abscess, hernia, wound infection, respiratory and cardiac failure, were discussed. They understand and wish to proceed. Current Visit: Yes Status: Acute Code(s): R19.8 - OTH SYMPTOMS AND SIGNS INVOLVING THE DGSTV SYS AND ABDOMEN SNOMED Code(s): 264165336
[2023-12-08] MEDS: fentaNYL (PF) 50 MCG/1 ML VIAL IVP ONE (08:28)
[2023-12-08] MEDS ORDERED: ONDANSETRON 4 MG/2 ML VIAL ONE (08:37)
[2023-12-08] MEDS: ONDANSETRON 4 MG/2 ML VIAL IVP ONE (08:42)
[2023-12-08] MEDS: DEXAMETHASONE SOD PHOSPHATE 4 MG/ML 1 ML VIAL IVP ONE (08:42)
[2023-12-08] MEDS: HEPARIN SODIUM,PORCINE 5,000 UNIT/ML 1 ML VIAL SQ ONE (08:43)
[2023-12-08] MEDS ORDERED: ROCURONIUM 10 MG/ML (5 ML VIAL) IV ONE (08:46)
[2023-12-08] MEDS ORDERED: PROPOFOL 10 MG/ML 20 ML VIAL IV ONE (08:46)
[2023-12-08] MEDS ORDERED: SUCCINYLCHOLINE CHLORIDE 200 MG/10 ML VIAL IV ONE (08:46)
[2023-12-08] MEDS ORDERED: LIDOCAINE 1% INJ 10MG/ML (20 ML MDV) ONE (08:46)
[2023-12-08] MEDS ORDERED: PHENYLEPHRINE 10 MG/ML VIAL ONE (08:46)
[2023-12-08] MEDS ORDERED: fentaNYL (PF) 50 MCG/ML 2 ML AMP ONE (08:46)
[2023-12-08] MEDS ORDERED: MIDAZOLAM 2 MG/2 ML VIAL ONE (08:46)
[2023-12-08] MEDS: LACTATED RINGERS 1,000 ML IV ONE ×2 (09:19→09:56)
[2023-12-08] MEDS ORDERED: IPRATROPIUM-ALBUTEROL 3 ML NEB INHALATION PRN (10:38)
[2023-12-08 10:57] LABS: Glucose,Whole Blood 102 mg/dL (70-110)
[2023-12-08] MEDS: HYDROmorphone 0.5 MG/0.5 ML SYRINGE IVP PRN (10:57)
[2023-12-08] MEDS: CLEVIDIPINE BUTYRATE 25 MG in EMPTY BAG 1 BAG IV SCH (10:59)
[2023-12-08] MEDS: propofoL 100 ML IV ONE (11:01)
[2023-12-08 11:05] LABS: HCT 36.3 % (34.0-46.0); HGB 12.5 gm/dL (11.4-16.0); MCH 33.7 pg (25.0-35.0); MCHC 34.5 g/dL (31.0-37.0); MCV 97.6 fL (80.0-100.0); Mean Platelet Volume 7.8; Platelet Count 263 k/uL (150-450); RBC 3.72 m/uL (3.80-5.40); RDW 12.7 % (11.5-15.5); WBC 8.8 k/uL (3.8-10.6)
--- NOTE | 2023-12-08 11:07 | XR ---
EXAMINATION TYPE: XR chest 1V portable DATE OF EXAM: 12/08/2023 10:58 AM CLINICAL INDICATION:Female, 78 years old with history of Tube placement; COMPARISON: Chest radiographs from 12/08/2023 TECHNIQUE: XR chest 1V portable Frontal view of the chest. FINDINGS: Lungs/Pleura: There is no evidence of pleural effusion, focal consolidation, or pneumothorax. Pulmonary vascularity: Unremarkable. Heart/mediastinum: Cardiomediastinal silhouette is unremarkable. Atherosclerotic calcifications are seen in the aorta. Musculoskeletal: No acute osseous pathology. Endotracheal tube 5.2 cm above the aura. Nasogastric tube projecting out of the [id number] under the diaphragm. IMPRESSION: 1. Endotracheal tube and nasogastric tube in appropriate position. 2. No acute cardiopulmonary disease/process.
[2023-12-08 11:13] LABS: ABG Base Excess -2.3 mmol/L; ABG HCO3 24 mmol/L (21-25); ABG Oxygen Saturation 99.3 % (94-97); ABG PCO2 51 mmHg (35-45); ABG PH 7.28 (7.35-7.45); ABG PO2 >400 mmHg (83-108); ABG TCO2 26 mmol/L (19-24)
[2023-12-08 11:15] LABS: Allen Test Performed? no
[2023-12-08 11:19] LABS: African American GFR (CKD) >90 (>60 ml/min/1.73 sqM); Anion Gap 4 mmol/L; Blood Urea Nitrogen 19 mg/dL (7-17); Calcium 6.9 mg/dL (8.4-10.2); Carbon Dioxide 23 mmol/L (22-30); Chloride 111 mmol/L (98-107); Glucose 102 mg/dL (74-99); Magnesium 1.7 mg/dL (1.6-2.3); Non-African American GFR(CKD) >90 (>60 ml/min/1.73 sqM); Sodium 138 mmol/L (137-145)
[2023-12-08] MEDS: IPRATROPIUM-ALBUTEROL 3 ML NEB INHALATION SCH (11:19)
--- NOTE | 2023-12-08 11:35 | P.OP ---
Date of Procedure: 12/08/23 Procedure(s) Performed: PREOPERATIVE DIAGNOSIS: Perforated viscus POSTOPERATIVE DIAGNOSIS: Perforated sigmoid diverticulitis PROCEDURE: Exploratory laparotomy, sigmoid colectomy, end colostomy SURGEON: Mary Carmen EBL: 25 cc ANESTHESIA: General COMPLICATIONS: None OPERATIVE PROCEDURE: Patient brought and placed in the operative table in the supine position. The patient's abdomen was prepped and draped sterilely. A incision was made extending from the supraumbilical to infraumbilical location. Foul-smelling succus appearing fluid was encountered and evacuated. Cultures were taken. The stomach was distended but no inflammatory changes around the stomach or duodenum were noted. The incision was lengthened inferiorly. A 1 cm perforation of the antimesenteric portion of the sigmoid colon was identified with blaine stool in the pelvis. This was evacuated. The bowel was divided proximal and distal to the site of perforation using a linear 75 stapler. The mesentery was divided using LigaSure. The proximal colon was mobilized. The abdomen was then irrigated with 5 L of saline. The small bowel and remainder of colon were inspected and otherwise appeared normal. There was some chronic inflammatory changes from the presumed abscess that had been loculated off for some time. This was not causing any evidence of fistula or stricture. Once we had adequately irrigated the abdomen a circular incision was made in the left mid abdomen. The fascia was divided using electrocautery. The end of the sigmoid colon was brought out through that opening. This was sutured to the peritoneum circumferentially using interrupted 3-0 GI silk sutures. The midline fascia was then reapproximated using 3 separate double-stranded #1 PDS sutures. The skin was loosely reapproximated and 4 openings were left for Aquacel silver rope. Sterile dressings were then applied. The ostomy was then matured in a chickaloon fashion using interrupted 3-0 Vicryl sutures. Ostomy appliance was applied. DISPOSITION: Patient to continue ICU intubated.
[2023-12-08] MEDS ORDERED: LEVOFLOXACIN 500MG-D5W PMX 500 MG in DEXTROSE/WATER 1 100ML.BAG IVPB SCH (11:45)
[2023-12-08] MEDS ORDERED: Magnesium Replacement Protocol 1 EACH MISC MISCELLANE PRN (12:06)
--- NOTE | 2023-12-08 12:10 | P.CNPUL ---
History of Present Illness Consult date: 12/08/23 Requesting physician: Demetrio Lentz Reason for consult: other (Ventilator/Critical care management) Chief complaint: Severe abdominal pain History of present illness: This is a 78-year-old female patient with a history of rheumatoid arthritis, hypertension, hyperlipidemia, gastroesophageal reflux disease chronic obstructive pulmonary disease with chronic and ongoing tobacco dependence. She presented to the emergency room early this morning with complaints of severe epigastric abdominal pain. She has a prior history of gastric ulcers and frequently has abdominal pain. ET scan of the abdomen revealed evidence of free air. Gastric or proximal duodenal ulcer perforation was suspected given severe gastric antral wall thickening. Chest x-ray revealed no acute pulmonary process. White count 8.8. Hemoglobin 12.5. Platelets 263. Sodium 138. Potassium 4.0. Bicarb 23. BUN 19. Creatinine 0.51. Glucose 102. Viral screen was negative. Lipase 11. Amylase less than 30. AST 56. ALT 48. She was taken to the operating room and had undergone a full oratory laparotomy, sigmoid colectomy and end colostomy for a perforated sigmoid diverticulitis. She remained intubated and on the mechanical ventilator and transferred to the intensive care unit. Current vent to later settings are assist-control mode at a rate of 14, tidal line 350, FiO2 100% and a PEEP of 5. She is sedated on propofol at 20 mcg/kg/min. She has lactated Ringer's at 125 MLS per hour. She is on antibiotics in the form of Levaquin and Flagyl. Abdominal dressing is dry and intact. There is a left colostomy in place. Right radial arterial line in place. She is somewhat hypertensive and initiated on Cleviprex infusion 1 mg/h. Dilaudid for pain control. Review of Systems ROS unobtainable: due to endotracheal tube Past Medical History Past Medical History: COPD, Hypertension, Rheumatoid Arthritis (RA) Additional Past Medical History / Comment(s): bleeding ulcer History of Any Multi-Drug Resistant Organisms: None Reported Past Surgical History: Tubal Ligation Additional Past Surgical History / Comment(s): Eye surgery (cataracts removed). Past Anesthesia/Blood Transfusion Reactions: No Reported Reaction Past Psychological History: No Psychological Hx Reported Smoking Status: Current every day smoker Past Alcohol Use History: Rare Past Drug Use History: None Reported - Past Family History Mother Family Medical History: No Reported History Father Family Medical History: Cancer Medications and Allergies Home Medications Medication Instructions Recorded Confirmed Type oxyCODONE-APAP 7.5-325MG [Percocet 1 tab PO Q6H PRN 05/27/19 12/08/23 History 7.5-325 mg] Pantoprazole [Protonix] 40 mg PO AC-BID #60 tablet. 05/30/19 12/08/23 Rx Atorvastatin [Lipitor] 20 mg PO DAILY 05/08/20 12/08/23 History Metoprolol Tartrate [Lopressor] 25 mg PO BID #60 tab 05/14/20 12/08/23 Rx Albuterol Sulfate [Albuterol 2 puff PO RT-Q4H PRN 12/08/23 12/08/23 History Sulfate Hfa] Baclofen 10 mg PO HS 12/08/23 12/08/23 History Budesonide/Glycopyr/Formoterol 2 puff INHALATION RT-BID 12/08/23 12/08/23 History [Breztri Aerosphere Inhaler] Hydroxychloroquine Sulfate 200 mg PO BID 12/08/23 12/08/23 History [Plaquenil] Montelukast [Singulair] 10 mg PO DAILY 12/08/23 12/08/23 History Promethazine/Dextromethorphan 5 ml PO Q4H PRN 12/08/23 12/08/23 History [Promethazine-Dm Syrup] cefUROXime axetiL [Ceftin] 500 mg PO BID 12/08/23 12/08/23 History Allergies Allergy/AdvReac Type Severity Reaction Status Date / Time alendronate sodium Allergy Unknown Verified 12/08/23 07:55 [From Fosamax] erythromycin base Allergy Unknown Verified 12/08/23 07:55 gatifloxacin [From Tequin] Allergy Unknown Verified 12/08/23 07:55 Penicillins Allergy Unknown Verified 12/08/23 07:55 tetracycline Allergy Unknown Verified 12/08/23 07:55 Physical Exam Vitals: Vital Signs Temp Pulse Pulse Resp BP BP Pulse Ox 12/08/23 11:31 85 12/08/23 11:20 85 12/08/23 11:16 12/08/23 11:11 12/08/23 11:00 88 14 151/78 100 12/08/23 10:40 85 14 12/08/23 10:30 12/08/23 08:00 98.7 F 84 22 150/86 187/90 95 12/08/23 07:47 98.0 F 75 18 150/86 96 12/08/23 07:00 80 20 150/79 96 12/08/23 06:00 80 16 157/80 96 12/08/23 05:00 87 24 160/73 97 12/08/23 04:15 89 20 177/84 99 12/08/23 03:26 98.8 F 101 H 20 157/83 94 L FiO2 12/08/23 11:31 12/08/23 11:20 12/08/23 11:16 40 12/08/23 11:11 100 12/08/23 11:00 12/08/23 10:40 100 12/08/23 10:30 100 12/08/23 08:00 12/08/23 07:47 12/08/23 07:00 12/08/23 06:00 12/08/23 05:00 12/08/23 04:15 12/08/23 03:26 Intake and Output 12/07/23 12/08/23 12/08/23 22:59 06:59 14:59 Intake Total 2325.467 Output Total 525 Balance 1800.467 Intake: IV 2325 Lactated Ringers 1,000 ml 125 @ 0 mls/hr IV .[facility] Rx#:[id number] Intake, IV Titration 0.467 Amount propofoL 1,000 mg In 0.467 Empty Bag 1 bag @ 15 MCG/ KG/MIN 4.001 mls/hr IV . Q24H [facility] Rx#:[id number] Output: Urine 500 Estimated Blood Loss 25 Other: Voiding Method Indwelling Catheter Weight 44.452 kg ABP, PAP, CO, CI - Last 8 Hours Arterial Blood Pressure 162/62 Arterial Blood Pressure 198/73 GENERAL EXAM: Intubated, sedated, frail 78-year-old female, in no apparent distress. HEAD: Normocephalic. EYES: Sluggish reaction of pupils, equal size. NOSE: Clear with pink turbinates. THROAT: Oral endotracheal and gastric tube secured in place. No erythema or exudates. NECK: No masses, no JVD. CHEST: No chest wall deformity. LUNGS: Equal air entry with no crackles, wheeze, rhonchi or dullness. CVS: S1 and S2 normal with no audible murmur, regular rhythm. ABDOMEN: Abdominal dressing dry and intact. Left abdominal ostomy present. SPINE: No scoliosis or deformity SKIN: No rashes CENTRAL NERVOUS SYSTEM: Sedated, tone is normal in all 4 extremities. EXTREMITIES: Right radial arterial line in place there is no peripheral edema. No clubbing, no cyanosis. Peripheral pulses are intact. Results - Laboratory Findings CBC and BMP: 12/08/23 11:02 12/08/23 11:02 ABG ABG pH 7.28 (7.35-7.45) L 12/08/23 11:10 ABG pCO2 51 mmHg (35-45) H 12/08/23 11:10 ABG pO2 >400 mmHg (83-108) H 12/08/23 11:10 ABG O2 Saturation 99.3 % (94-97) H 12/08/23 11:10 PT/INR, D-dimer PT 10.9 sec (10.0-12.5) 12/08/23 04:10 INR 1.0 (<1.2) 12/08/23 04:10 Abnormal lab findings: Abnormal Labs 12/08/23 12/08/23 12/08/23 03:32 03:32 11:02 RBC 3.72 L Lymphocytes # (Manual) 0.12 L ABG pH ABG pCO2 ABG pO2 ABG Total CO2 ABG O2 Saturation Sodium 135 L Chloride BUN 27 H Creatinine Glucose 110 H Calcium AST 56 H ALT 48 H Total Protein 5.6 L Albumin 2.8 L Amylase <30 L Lipase 11 L 12/08/23 12/08/23 11:02 11:10 RBC Lymphocytes # (Manual) ABG pH 7.28 L ABG pCO2 51 H ABG pO2 >400 H ABG Total CO2 26 H ABG O2 Saturation 99.3 H Sodium Chloride 111 H BUN 19 H Creatinine 0.51 L Glucose 102 H Calcium 6.9 L AST ALT Total Protein Albumin Amylase Lipase - Diagnostic Findings Chest x-ray: image reviewed Assessment and Plan Assessment: Severe acute abdominal pain secondary to perforated sigmoid diverticulitis. Status post exploratory laparotomy, sigmoid colectomy, end colostomy. Postoperative day #0 Severe protein calorie malnutrition with a BMI of less than 20 kg/m History of gastric ulcers and esophagitis History of rheumatoid arthritis History of chronic obstructive pulmonary disease History of chronic tobacco dependence History of hypertension History of hyperlipidemia History of gastroesophageal reflux disease Plan: The patient was seen and evaluated Chest x-ray, ABGs, labs and medications reviewed Increased respiratory rate to 20, decrease the FiO2 to 40% Continue Flagyl and Levaquin Continue bronchodilators Lactated Ringer's at 125 MLS per hour Cleviprex infusion for hypertension Dilaudid for pain control Titrate the FiO2 as tolerated We will continue to follow and make further recommendations based on her clinical status I have personally seen and examined the patient, performed the documentation and the assessment and plan as written. Number of minutes spent on the visit: 20.
[2023-12-08 12:52] LABS: Band Neutrophils % 22 %; Lymphocytes # (M) 0.62 k/uL (1.0-4.8); Monocytes # (M) 0.26 k/uL (0-1.0); Neutrophils % (M) 68 %; Nucleated Red Blood Cells 0 /100 WBC (0-0); Total Cells Counted 100
[2023-12-08] MEDS: CEFEPIME 2 GM in SODIUM CHLORIDE 0.9% 100 ML IVPB SCH (13:22)
[2023-12-08] MEDS: MAGNESIUM SULFATE-D5W PMX 1 GM in DEXTROSE/WATER 1 100ML.BAG IVPB ONE (13:23)
[2023-12-08] MEDS: HEPARIN SODIUM,PORCINE 5,000 UNIT/ML 1 ML VIAL SQ SCH (17:28)
[2023-12-08] MEDS: LACTATED RINGERS 1,000 ML IV SCH (17:44)
[2023-12-08] MEDS: CHLORHEXIDINE GLUCONATE 15 ML CUP MUCOUS MEM SCH (20:00)
[2023-12-08] MEDS: FORMOTEROL FUMARATE 20 MCG/2 ML NEBU INHALATION SCH (20:03)
[2023-12-08] MEDS: BUDESONIDE 1 MG/2 ML NEBU INHALATION SCH (20:03)
--- NOTE | 2023-12-08 22:05 | P.CONS ---
History of Present Illness - Reason for Consult Consult date: 12/08/23 Perforated sigmoid diverticulitis Requesting physician: Demetrio Lentz - Chief Complaint Abdominal pain x few days - History of Present Illness Patient is a 78-year-old female with a past medical history significant for COPD hypertension rheumatoid arthritis presenting to the ER for evaluation of epigastric abdominal pain apparently the patient started having a bdominal pain on Tuesday for the patient went to see her primary care physician apparently he was started on some antibiotics and steroids however the son mention she stopped taking the antibiotics because it was making her sick patient did have progressive worsening of the pain and started feeling nauseated but no episode of any vomiting no clear history of any fever but the patient was brought into the hospital on arrival to the ER patient was afebrile and no fever have recorded subsequently patient was tachycardic at 1 point 9984 hypotensive patient did have a white count of 5.9 creatinine was normal liver isms mildly elevated influenza RSV and COVID testing was negative patient did have abdominal pelvis CT free air did confirm gastric or proximal duodenal ulceration suspected patient was evaluated by general surgery was taken to the OR in this patient who is status post laparotomy with evidence of perforated sigmoid diverticulitis patient status post sigmoid colectomy and end colostomy patient did have a penicillin allergy she was started on Levaquin and Flagyl infectious disease was consulted for further management of antibiotic therapy more so information has been obtained from review the chart talking to son at the bedside as the patient is currently intubated on the vent and cannot provide any history Review of Systems Positive points has been mentioned in HPI complete review could not be obtained because patient intubated on the vent Past Medical History Past Medical History: COPD, Hypertension, Rheumatoid Arthritis (RA) Additional Past Medical History / Comment(s): bleeding ulcer History of Any Multi-Drug Resistant Organisms: None Reported Past Surgical History: Tubal Ligation Additional Past Surgical History / Comment(s): Eye surgery (cataracts removed). Past Anesthesia/Blood Transfusion Reactions: No Reported Reaction Past Psychological History: No Psychological Hx Reported Smoking Status: Current every day smoker Past Alcohol Use History: Rare Past Drug Use History: None Reported - Past Family History Mother Family Medical History: No Reported History Father Family Medical History: Cancer Medications and Allergies Home Medications Medication Instructions Recorded Confirmed Type oxyCODONE-APAP 7.5-325MG [Percocet 1 tab PO Q6H PRN 05/27/19 12/08/23 History 7.5-325 mg] Pantoprazole [Protonix] 40 mg PO AC-BID #60 tablet.dr 05/30/19 12/08/23 Rx Atorvastatin [Lipitor] 20 mg PO DAILY 05/08/20 12/08/23 History Metoprolol Tartrate [Lopressor] 25 mg PO BID #60 tab 05/14/20 12/08/23 Rx Albuterol Sulfate [Albuterol 2 puff PO RT-Q4H PRN 12/08/23 12/08/23 History Sulfate Hfa] Baclofen 10 mg PO HS 12/08/23 12/08/23 History Budesonide/Glycopyr/Formoterol 2 puff INHALATION RT-BID 12/08/23 12/08/23 Histo ry [Breztri Aerosphere Inhaler] Hydroxychloroquine Sulfate 200 mg PO BID 12/08/23 12/08/23 History [Plaquenil] Montelukast [Singulair] 10 mg PO DAILY 12/08/23 12/08/23 History Promethazine/Dextromethorphan 5 ml PO Q4H PRN 12/08/23 12/08/23 History [Promethazine-Dm Syrup] cefUROXime axetiL [Ceftin] 500 mg PO BID 12/08/23 12/08/23 History Allergies Allergy/AdvReac Type Severity Reaction Status Date / Time alendronate sodium Allergy Unknown Verified 12/08/23 07:55 [From Fosamax] erythromycin base Allergy Unknown Verified 12/08/23 07:55 gatifloxacin [From Tequin] Allergy Unknown Verified 12/08/23 07:55 Penicillins Allergy Unknown Verified 12/08/23 07:55 tetracycline Allergy Unknown Verified 12/08/23 07:55 Physical Exam Vitals: Vital Signs Temp Pulse Pulse Resp BP BP Pulse Ox 12/08/23 12:00 12/08/23 11:31 85 12/08/23 11:20 85 12/08/23 11:16 12/08/23 11:11 12/08/23 11:00 88 14 151/78 100 12/08/23 10:40 85 14 12/08/23 10:30 12/08/23 08:00 98.7 F 84 22 150/86 187/90 95 12/08/23 07:47 98.0 F 75 18 150/86 96 12/08/23 07:00 80 20 150/79 96 12/08/23 06:00 80 16 157/80 96 12/08/23 05:00 87 24 160/73 97 12/08/23 04:15 89 20 177/84 99 12/08/23 03:26 98.8 F 101 H 20 157/83 94 L FiO2 12/08/23 12:00 40 12/08/23 11:31 12/08/23 11:20 12/08/23 11:16 40 12/08/23 11:11 100 12/08/23 11:00 12/08/23 10:40 100 12/08/23 10:30 100 12/08/23 08:00 12/08/23 07:47 12/08/23 07:00 12/08/23 06:00 12/08/23 05:00 12/08/23 04:15 12/08/23 03:26 Intake and Output 12/07/23 12/08/23 12/08/23 22:59 06:59 14:59 Intake Total 2325.467 Output Total 525 Balance 1800.467 Intake: IV 2325 Lactated Ringers 1,000 ml 125 @ 0 mls/hr IV [facility] Rx#:[id number] Intake, IV Titration 0.467 Amount propofoL 1,000 mg In 0.467 Empty Bag 1 bag @ 15 MCG/ KG/MIN 4.001 mls/hr IV . Q24H [facility] Rx#:[id number] Output: Urine 500 Estimated Blood Loss 25 Other: Voiding Method Indwelling Catheter Weight 44.452 kg 44.452 kg ABP, PAP, CO, CI - Last 8 Hours Arterial Blood Pressure 162/62 Arterial Blood Pressure 198/73 GENERAL DESCRIPTION: Elderly female intubated on the vent HEENT: Shows Pallor , no scleral icterus. Oral mucous membrane is dry. NECK: Trachea central, no thyromegaly. LUNGS: Unlabored breathing. Decreased breath sounds at the base HEART: S1, S2, regular rate and rhythm. No loud murmur ABDOMEN: Soft, mild distention EXTREMITIES: No edema of feet. SKIN: No rash, no masses palpable. NEUROLOGICAL: The patient is sedated on the vent Results CBC & Chem 7: 12/08/23 11:02 12/08/23 11:02 Labs: Abnormal Lab Results - Last 24 Hours (Table) 12/08/23 12/08/23 12/08/23 Range/Units 03:32 03:32 11:02 RBC 3.72 L (3.80-5.40) m/uL Lymphocytes # (Manual) 0.12 L (1.0-4.8) k/uL ABG pH (7.35-7.45) ABG pCO2 (35-45) mmHg ABG pO2 (83-108) mmHg ABG Total CO2 (19-24) mmol/L ABG O2 Saturation (94-97) % Sodium 135 L (137-145) mmol/L Chloride (98-107) mmol/L BUN 27 H (7-17) mg/dL Creatinine (0.52-1.04) mg/dL Glucose 110 H (74-99) mg/dL Calcium (8.4-10.2) mg/dL AST 56 H (14-36) U/L ALT 48 H (4-34) U/L Total Protein 5.6 L (6.3-8.2) g/dL Albumin 2.8 L (3.5-5.0) g/dL Amylase <30 L (30-110) U/L Lipase 11 L (23-300) U/L 12/08/23 12/08/23 Range/Units 11:02 11:10 RBC (3.80-5.40) m/uL Lymphocytes # (Manual) (1.0-4.8) k/uL ABG pH 7.28 L (7.35-7.45) ABG pCO2 51 H (35-45) mmHg ABG pO2 >400 H (83-108) mmHg ABG Total CO2 26 H (19-24) mmol/L ABG O2 Saturation 99.3 H (94-97) % Sodium (137-145) mmol/L Chloride 111 H (98-107) mmol/L BUN 19 H (7-17) mg/dL Creatinine 0.51 L (0.52-1.04) mg/dL Glucose 102 H (74-99) mg/dL Calcium 6.9 L (8.4-10.2) mg/dL AST (14-36) U/L ALT (4-34) U/L Total Protein (6.3-8.2) g/dL Albumin (3.5-5.0) g/dL Amylase (30-110) U/L Lipase (23-300) U/L Assessment and Plan (1) Intra-abdominal abscess Current Visit: Yes Status: Acute Code(s): K65.1 - PERITONEAL ABSCESS SNOMED Code(s): 96585714 (2) Allergy to multiple antibiotics Current Visit: Yes Status: Acute Code(s): Z88.1 - ALLERGY STATUS TO OTHER ANTIBIOTIC AGENTS SNOMED Code(s): 561166761 (3) Perforated viscus Current Visit: Yes Status: Acute Code(s): R19.8 - OTH SYMPTOMS AND SIGNS INVOLVING THE DGSTV SYS AND ABDOMEN SNOMED Code(s): 800582308 Plan: 1patient presented to hospital with abdominal pain has been diagnosed with a perforated viscus in this patient was status post laparotomy with evidence of perforated sigmoid diverticulitis status post laparotomy sigmoid colectomy and end colostomy for likely organism need to cover will be enteric gram-negative both aerobes and anaerobes 2-patient with multiple antibiotic ALLERGIES that would limit the number of antibiotic safe to use 3-discontinue Levaquin 4-we will start the patient cefepime 2 g every 8 and continue with the Flagyl Son at the bedside question concern answered We will follow on clinical condition and cultures to further adjust medication if needed Thank you for this consultation we will follow the patient along with you Dictation was produced using [employer] dictation software. please excuse any grammatical, word or spelling errors. Time with Patient: Greater than 30
[2023-12-08 23:30] LABS: Glucose,Whole Blood 116 mg/dL (70-110)
[2023-12-09] MEDS ORDERED: DEXTROSE 50% SYRINGE 50 ML IVP PRN (00:31)
[2023-12-09 04:38] LABS: Basophils % (A) 0 %; Eosinophils % (A) 0 %; HCT 32.1 % (34.0-46.0); HGB 10.9 gm/dL (11.4-16.0); Lymphocytes # (A) 0.3 k/uL (1.0-4.8); Lymphocytes % (A) 3 %; MCH 32.8 pg (25.0-35.0); MCV 96.5 fL (80.0-100.0); Mean Platelet Volume 8.1; Monocytes # (A) 0.5 k/uL (0-1.0); Monocytes % (A) 4 %; Neutrophils # (A) 9.9 k/uL (1.3-7.7); Neutrophils % (A) 92 %; Platelet Count 254 k/uL (150-450); RBC 3.32 m/uL (3.80-5.40); RDW 12.8 % (11.5-15.5); WBC 10.8 k/uL (3.8-10.6)
[2023-12-09 04:43] LABS: African American GFR (CKD) >90 (>60 ml/min/1.73 sqM); Anion Gap 1 mmol/L; Blood Urea Nitrogen 20 mg/dL (7-17); Calcium 7.3 mg/dL (8.4-10.2); Carbon Dioxide 25 mmol/L (22-30); Chloride 109 mmol/L (98-107); Glucose 109 mg/dL (74-99); Non-African American GFR(CKD) 88 (>60 ml/min/1.73 sqM); Potassium 3.8 mmol/L (3.5-5.1); Sodium 135 mmol/L (137-145)
[2023-12-09 05:52] LABS: Glucose,Whole Blood 128 mg/dL (70-110)
[2023-12-09] MEDS ORDERED: Potassium Replacement Protocol 1 EACH MISC MISCELLANE PRN (06:23)
[2023-12-09] MEDS: POTASSIUM CHLORIDE 10 MEQ in WATER FOR INJECTION 1 100ML.BAG IVPB SCH ×2 (06:29→13:17)
[2023-12-09] MEDS: FUROSEMIDE 10 MG/ML 4 ML VIAL IV STA (06:30)
[2023-12-09 06:46] LABS: ABG HCO3 26 mmol/L (21-25); ABG Oxygen Saturation 98.8 % (94-97); ABG PCO2 39 mmHg (35-45); ABG PH 7.43 (7.35-7.45); ABG PO2 165 mmHg (83-108); ABG TCO2 28 mmol/L (19-24); Allen Test Performed? Yes
[2023-12-09] MEDS: PANTOPRAZOLE 40 MG/10 ML VIAL IV SCH (07:34)
--- NOTE | 2023-12-09 08:43 | XR ---
EXAMINATION TYPE: XR chest 1V portable DATE OF EXAM: 12/09/2023 6:14 AM CLINICAL INDICATION:Female, 78 years old with history of Tube placement; COMPARISON: Chest radiograph from one day prior. TECHNIQUE: XR chest 1V portable Frontal view of the chest. FINDINGS: Lungs/Pleura: There is flattening of the diaphragm with increased lucency of the lungs. No evidence o f pneumothorax, pleural effusion or focal consolidation. Pulmonary vascularity: Unremarkable. Heart/mediastinum: Cardiomediastinal silhouette is unremarkable. Atherosclerotic calcifications are seen in the aorta. Musculoskeletal: No acute osseous pathology. Other findings: None Lines/Tubes: Endotracheal tube with distal tip 4.6 cm above the aura. Nasogastric tube with its distal tip and side-port projecting under the diaphragm. IMPRESSION: 1. Stable support tubes. 2. No significant change in exam. 3. COPD changes.
[2023-12-09] MEDS ORDERED: HYDROmorphone 1 MG/ML 1 ML SYRINGE IM PRN (10:10)
[2023-12-09] MEDS: HYDROmorphone 1 MG/ML 1 ML SYRINGE IVP PRN (10:34)
--- NOTE | 2023-12-09 10:54 | P.PN ---
Subjective Progress Note Date: 12/09/23 This is a 78-year-old female patient with a history of rheumatoid arthritis, hypertension, hyperlipidemia, gastroesophageal reflux disease chronic obstructive pulmonary disease with chronic and ongoing tobacco dependence. She presented to the emergency room early this morning with complaints of severe ep igastric abdominal pain. She has a prior history of gastric ulcers and frequently has abdominal pain. ET scan of the abdomen revealed evidence of free air. Gastric or proximal duodenal ulcer perforation was suspected given severe gastric antral wall thickening. Chest x-ray revealed no acute pulmonary process. White count 8.8. Hemoglobin 12.5. Platelets 263. Sodium 138. Potassium 4.0. Bicarb 23. BUN 19. Creatinine 0.51. Glucose 102. Viral screen was negative. Lipase 11. Amylase less than 30. AST 56. ALT 48. She was taken to the operating room and had undergone a full oratory laparotomy, sigmoid colectomy and end colostomy for a perforated sigmoid diverticulitis. She remained intubated and on the mechanical ventilator and transferred to the intensive care unit. Current vent to later settings are assist-control mode at a rate of 14, tidal line 350, FiO2 100% and a PEEP of 5. She is sedated on propofol at 20 mcg/kg/min. She has lactated Ringer's at 125 MLS per hour. She is on antibiotics in the form of Levaquin and Flagyl. Abdominal dressing is dry and intact. There is a left colostomy in place. Right radial arterial line in place. She is somewhat hypertensive and initiated on Cleviprex infusion 1 mg/h. Dilaudid for pain control. The patient is seen today December 09, 2023 in follow-up in the intensive care unit. She remains intubated on mechanical ventilator. Current settings are assist-control mode at a rate of 20, tidal line 350, FiO2 30% and a PEEP of 5. Morning blood gases reveal a pO2 of 165, pCO2 39 and a pH of 7.43. These were on FiO2 40%. Sedated on propofol at 20 mics per kilogram per minute. Lactated Ringer's at 125 MLS per hour. She remains on bronchodilators. Antibiotics in the form of cefepime and Flagyl. Heparin for DVT prophylaxis. Chest x-ray reveals no significant change. Evidence of COPD. Objective - Vital Signs Vital signs: Vital Signs Temp 98.4 F 12/09/23 10:00 Pulse 98 12/09/23 10:00 Resp 11 L 12/09/23 10:00 BP 120/61 12/09/23 10:00 Pulse Ox 97 12/09/23 10:00 FiO2 30 12/09/23 10:00 Intake & Output 12/08/23 12/09/23 12/09/23 18:59 06:59 18:59 Intake Total 3247.060 1663.973 726.668 Output Total 376 456 4671 Balance 2387.060 1323.973 -753.332 Weight 44.452 kg 45.4 kg Intake: IV 3200 1596 712 Cefepime 2 gm In Sodium 100 Chloride 0.9% 100 ml @ 25 mls/hr IVPB Q8H ANN Rx#: [id number] Lactated Ringers 1,000 ml 1000 375 @ 0 mls/hr IV .STK-MED ONE Rx#:[id number] Lactated Ringers 1,000 ml 1000 500 @ 125 mls/hr IV .Q8H ANN Rx#:[id number] Potassium Chloride 10 meq 200 In Water For Injection 1 100ml.bag @ 100 mls/hr IVPB Q1H ANN Rx#: [id number] Pressure Bag 21 12 metroNIDAZOLE-NS PMX 500 100 mg In Saline 1 100ml.bag @ 100 mls/hr IVPB Q8H ANN Rx#:[id number] Intake, IV Titration 47.060 67.973 14.668 Amount Clevidipine Butyrate 25 15.033 mg In Empty Bag 1 bag @ 1 MG/HR 2 mls/hr IV .Q24H ANN Rx#:[id number] propofoL 1,000 mg In 32.027 67.973 14.668 Empty Bag 1 bag @ 15 MCG/ KG/MIN 4.001 mls/hr IV . Q24H ANN Rx#:[id number] Output: Gastric Drainage 300 Urine 389 181 5404 Stool 5 Estimated Blood Loss 25 Other: Voiding Method Indwelling Catheter Indwelling Catheter Indwelling Catheter ABP, PAP, CO, CI - Last Documented Arterial Blood Pressure 151/71 - Exam GENERAL EXAM: Intubated, sedated, 78-year-old female, in no apparent distress. HEAD: Normocephalic. EYES: Sluggish reaction of pupils, equal size. NOSE: Clear with pink turbinates. THROAT: Oral endotracheal and gastric tube secured in place. No erythema or exudates. NECK: No masses, no JVD. CHEST: No chest wall deformity. LUNGS: Equal air entry with no crackles, wheeze, rhonchi or dullness. CVS: S1 and S2 normal with no audible murmur, regular rhythm. ABDOMEN: Abdominal dressing dry and intact. Left abdominal ostomy present. SPINE: No scoliosis or deformity SKIN: No rashes CENTRAL NERVOUS SYSTEM: Sedated, tone is normal in all 4 extremities. EXTREMITIES: Right radial arterial line in place there is no peripheral edema. No clubbing, no cyanosis. Peripheral pulses are intact. - Labs CBC & Chem 7: 12/09/23 04:15 12/09/23 04:15 Labs: Abnormal Lab Results - Last 24 Hours (Table) 12/08/23 12/08/23 12/08/23 Range/Units 11:02 11:02 11:10 WBC (3.8-10.6) k/uL RBC 3.72 L (3.80-5.40) m/uL Hgb (11.4-16.0) gm/dL Hct (34.0-46.0) % Neutrophils # (1.3-7.7) k/uL Neutrophils # (Manual) 7.90 H (1.3-7.7) k/uL Lymphocytes # (1.0-4.8) k/uL Lymphocytes # (Manual) 0.62 L (1.0-4.8) k/uL ABG pH 7.28 L (7.35-7.45) ABG pCO2 51 H (35-45) mmHg ABG pO2 >400 H (83-108) mmHg ABG HCO3 (21-25) mmol/L ABG Total CO2 26 H (19-24) mmol/L ABG O2 Saturation 99.3 H (94-97) % Sodium (137-145) mmol/L Chloride 111 H (98-107) mmol/L BUN 19 H (7-17) mg/dL Creatinine 0.51 L (0.52-1.04) mg/dL Glucose 102 H (74-99) mg/dL POC Glucose (mg/dL) (70-110) mg/dL Calcium 6.9 L (8.4-10.2) mg/dL 12/08/23 12/09/23 12/09/23 Range/Units 23:28 04:15 04:15 WBC 10.8 H (3.8-10.6) k/uL RBC 3.32 L (3.80-5.40) m/uL Hgb 10.9 L (11.4-16.0) gm/dL Hct 32.1 L (34.0-46.0) % Neutrophils # 9.9 H (1.3-7.7) k/uL Neutrophils # (Manual) (1.3-7.7) k/uL Lymphocytes # 0.3 L (1.0-4.8) k/uL Lymphocytes # (Manual) (1.0-4.8) k/uL ABG pH (7.35-7.45) ABG pCO2 (35-45) mmHg ABG pO2 (83-108) mmHg ABG HCO3 (21-25) mmol/L ABG Total CO2 (19-24) mmol/L ABG O2 Saturation (94-97) % Sodium 135 L (137-145) mmol/L Chloride 109 H (98-107) mmol/L BUN 20 H (7-17) mg/dL Creatinine (0.52-1.04) mg/dL Glucose 109 H (74-99) mg/dL POC Glucose (mg/dL) 116 H (70-110) mg/dL Calcium 7.3 L (8.4-10.2) mg/dL 12/09/23 12/09/23 Range/Units 05:50 06:42 WBC (3.8-10.6) k/uL RBC (3.80-5.40) m/uL Hgb (11.4-16.0) gm/dL Hct (34.0-46.0) % Neutrophils # (1.3-7.7) k/uL Neutrophils # (Manual) (1.3-7.7) k/uL Lymphocytes # (1.0-4.8) k/uL Lymphocytes # (Manual) (1.0-4.8) k/uL ABG pH (7.35-7.45) ABG pCO2 (35-45) mmHg ABG pO2 165 H (83-108) mmHg ABG HCO3 26 H (21-25) mmol/L ABG Total CO2 28 H (19-24) mmol/L ABG O2 Saturation 98.8 H (94-97) % Sodium (137-145) mmol/L Chloride (98-107) mmol/L BUN (7-17) mg/dL Creatinine (0.52-1.04) mg/dL Glucose (74-99) mg/dL POC Glucose (mg/dL) 128 H (70-110) mg/dL Calcium (8.4-10.2) mg/dL Assessment and Plan Assessment: Severe acute abdominal pain secondary to perforated sigmoid diverticulitis. Status post exploratory laparotomy, sigmoid colectomy, end colostomy. Postoperative day #1 Acute hypoxemic respiratory failure secondary to above requiring prolonged ventilation postoperatively Severe protein calorie malnutrition with a BMI of less than 20 kg/m History of gastric ulcers and esophagitis History of rheumatoid arthritis History of chronic obstructive pulmonary disease History of chronic tobacco dependence History of hypertension History of hyperlipidemia History of gastroesophageal reflux disease Plan: The patient was seen and evaluated Chest x-ray, ABGs, labs and medications reviewed The patient will be given up daily in her irruption of sedation and weaning trial Plan to extubate if tolerated Continue Flagyl and cefepime Continue bronchodilators Lactated Ringer's at 125 MLS per hour Titrate the FiO2 as tolerated We will continue to follow I have personally seen and examined the patient, performed the documentation and the assessment and plan as written. Number of minutes spent on the visit: 15.
[2023-12-09] MEDS ORDERED: ALBUTEROL NEBULIZED 2.5 MG/3 ML INHALATION PRN (11:07)
[2023-12-09] MEDS: MONTELUKAST 10 MG TAB PO SCH (11:49)
[2023-12-09] MEDS: ATORVASTATIN 20 MG TAB PO SCH (11:49)
[2023-12-09] MEDS: HYDROXYCHLOROQUINE SULFATE 200 MG TAB PO SCH (11:49)
[2023-12-09 12:01] LABS: Glucose,Whole Blood 94 mg/dL (70-110)
[2023-12-09] MEDS: ACETAMINOPHEN IV (For NPO) 680 MG in EMPTY BAG 1 BAG IVPB SCH (12:32)
[2023-12-09] MEDS: IPRATROPIUM-ALBUTEROL 3 ML NEB INHALATION SCH (13:32)
--- NOTE | 2023-12-09 14:07 | P.CONS ---
History of Present Illness - Reason for Consult Consult date: 12/09/23 Medical management Requesting physician: Demetrio Lentz - Chief Complaint Abdominal pain - History of Present Illness This is a pleasant 78-year-old patient, chronic stable medical conditions include COPD, hypertension, rheumatoid arthritis. Patient is active smoker. Patient with 3 days been having increasing abdominal pain. Presented to the ER. CT scan showed free air. Patient was taken to the OR yesterday by Dr. Lentz. Underwent exploratory laparotomy. Found to have a perforated sigmoid diverticulitis. Sigmoid colectomy with end colostomy was done. Today in the ICU: Extubated earlier today. 2 L nasal cannula. Has NG tube to suction. No output in the colostomy bag. Son at the bedside. Pain at the surgical site. Review of systems: GEN.: Tired EYES: None HEENT: Diminished hearing in the right ear NECK: None RESPIRATORY: Chronic cough and some shortness of breath CARDIOVASCULAR: None GASTROINTESTINAL: As above GENITOURINARY: None MUSCULOSKELETAL: Joint pains LYMPHATICS: None HEMATOLOGICAL: None PSYCHIATRY: None NEUROLOGICAL: None Social history: Patient been smoking for many years. Was up to 4 packs a day. Now down to a pack a day. Works at [employer]. Lives with her son. Physical examination: VITAL SIGNS: 98.4, 106, 21, 136/68, 99% on 3 L GENERAL: BMI 18.3, awake reclining in bed tired. EYES: Pupils equal. Conjunctiva micheal l. HEENT: External appearance of nose and ears normal, oral cavity grossly normal. Diminished hearing in the right ear. NG tube to suction NECK: JVD not raised; masses not palpable. HEART: First and second heart sounds are normal; no edema. LUNGS:[ Respiratory rate increased, diminished breath sounds. ABDOMEN: Soft, nontender, liver spleen not palpable, no masses palpable. Left- sided colostomy bag. No output. Some tenderness. PSYCH: [Alert and oriented x3; mood and affect anxious. MUSCULOSKELETAL:No Clubbing/cyanosis;muscles-grossly intact NEUROLOGICAL: Cranial nerves grossly intact; no facial asymmetry, power and sensation grossly intact. LYMPHATICS: No lymph nodes palpable in the axilla and neck INVESTIGATIONS, reviewed in the clinical context: December 09: White count 10.8 hemoglobin 10.9 platelets 254 sodium 135 potassium 3.8 BUN 20 creatinine 0.61 Chest x-ray film personally reviewed by me-hyperinflation Telemetry strip bedside monitor: Personally reviewed by me. Sinus rhythm CT scan abdomen pelvis: Moderate prominence of the stomach. Severe wall thickening of the gastric antrum. Distal colonic diverticulosis. Free air identified anterior to the bladder. Assessment and plan: -Acute sigmoid diverticulitis with perforation. Patient underwent sigmoid resection and formation of her colostomy on December [address] Lentz. NPO. NG tube to suction. IV cefepime and IV Flagyl. -Possible secondary peritonitis from perforation IV cefepime and IV Flagyl -COPD and a current smoker DuoNeb 3 times daily. Singulair.. Breztri inhaler -Chronic nicotine dependence, cigarette smoker Nicotine patch -Hyperlipidemia Lipitor 20 mg a day -Severe protein calorie malnutrition. BMI 18.3. Consult dietitian -Chronic muscle spasm Baclofen as needed -Peptic ulcer disease PPI -Essential hypertension Lopressor 25 mg twice daily Care was discussed with the patient and son at the bedside. Currently NPO. Thank you Dr. Lentz Past Medical History Past Medical History: COPD, Hypertension, Rheumatoid Arthritis (RA) Additional Past Medical History / Comment(s): bleeding ulcer History of Any Multi-Drug Resistant Organisms: None Reported Past Surgical History: Tubal Ligation Additional Past Surgical History / Comment(s): Eye surgery (cataracts removed). Past Anesthesia/Blood Transfusion Reactions: No Reported Reaction Past Psychological History: No Psychological Hx Reported Smoking Status: Current every day smoker Past Alcohol Use History: Rare Past Drug Use History: None Reported - Past Family History Mother Family Medical History: No Reported History Father Family Medical History: Cancer Medications and Allergies Home Medications Medication Instructions Recorded Confirmed Type oxyCODONE-APAP 7.5-325MG [Percocet 1 tab PO Q6H PRN 05/27/19 12/08/23 History 7.5-325 mg] Pantoprazole [Protonix] 40 mg PO AC-BID #60 tablet. 05/30/19 12/08/23 Rx Atorvastatin [Lipitor] 20 mg PO DAILY 05/08/20 12/08/23 History Metoprolol Tartrate [Lopressor] 25 mg PO BID #60 tab 05/14/20 12/08/23 Rx Albuterol Sulfate [Albuterol 2 puff PO RT-Q4H PRN 12/08/23 12/08/23 History Sulfate Hfa] Baclofen 10 mg PO HS 12/08/23 12/08/23 History Budesonide/Glycopyr/Formoterol 2 puff INHALATION RT-BID 12/08/23 12/08/23 History [Breztri Aerosphere Inhaler] Hydroxychloroquine Sulfate 200 mg PO BID 12/08/23 12/08/23 History [Plaquenil] Montelukast [Singulair] 10 mg PO DAILY 12/08/23 12/08/23 History Promethazine/Dextromethorphan 5 ml PO Q4H PRN 12/08/23 12/08/23 History [Promethazine-Dm Syrup] cefUROXime axetiL [Ceftin] 500 mg PO BID 12/08/23 12/08/23 History Allergies Allergy/AdvReac Type Severity Reaction Status Date / Time alendronate sodium Allergy Unknown Verified 12/08/23 07:55 [From Fosamax] erythromycin base Allergy Unknown Verified 12/08/23 07:55 gatifloxacin [From Tequin] Allergy Unknown Verified 12/08/23 07:55 Penicillins Allergy Unknown Verified 12/08/23 07:55 tetracycline Allergy Unknown Verified 12/08/23 07:55 Physical Exam Vitals: Vital Signs Temp Pulse Resp BP Pulse Ox FiO2 12/09/23 13:00 98 13 145/66 100 12/09/23 12:00 99 20 135/64 98 12/09/23 11:00 106 H 21 136/68 99 12/09/23 10:00 98.4 F 98 11 L 120/61 97 30 12/09/23 09:57 30 12/09/23 09:00 96 20 129/61 96 12/09/23 08:12 94 12/09/23 08:02 93 12/09/23 08:00 99.0 F 93 20 134/65 95 40 12/09/23 07:51 93 12/09/23 07:42 40 12/09/23 07:00 91 20 120/71 98 12/09/23 06:30 93 22 97 12/09/23 06:00 93 20 113/59 97 12/09/23 05:30 92 20 98 12/09/23 05:00 93 22 98 12/09/23 04:30 95 20 98 12/09/23 04:00 98.7 F 95 20 123/54 97 40 12/09/23 03:47 93 12/09/23 03:39 96 40 12/09/23 03:30 92 20 97 12/09/23 03:00 90 21 116/54 98 12/09/23 02:30 91 22 98 12/09/23 02:00 92 22 108/60 98 12/09/23 01:30 91 22 98 12/09/23 01:00 90 20 121/59 97 12/09/23 00:30 90 20 98 12/09/23 00:00 98.7 F 89 20 104/63 99 40 12/08/23 23:39 86 12/08/23 23:32 86 12/08/23 23:31 40 12/08/23 23:30 92 20 99 12/08/23 23:00 87 17 111/58 98 12/08/23 22:30 89 18 111/58 98 12/08/23 22:00 89 26 H 106/52 99 12/08/23 21:30 89 18 106/52 100 12/08/23 21:00 95 17 99 12/08/23 20:30 95 18 99 12/08/23 20:18 96 12/08/23 20:03 93 40 12/08/23 20:00 99.2 F 90 20 100 40 12/08/23 19:30 92 18 99 12/08/23 19:00 99.2 F 88 20 99 40 12/08/23 18:45 87 16 100 12/08/23 18:30 88 22 100 12/08/23 18:15 92 16 99 12/08/23 18:00 91 17 100 12/08/23 17:45 92 20 100 12/08/23 17:30 93 23 100 12/08/23 17:15 90 20 98 12/08/23 17:00 93 18 98 12/08/23 16:45 93 22 98 12/08/23 16:30 92 19 98 12/08/23 16:15 94 20 99 12/08/23 16:00 98.5 F 93 18 99 40 12/08/23 15:52 95 12/08/23 15:45 93 26 H 98 12/08/23 15:40 96 12/08/23 15:37 40 12/08/23 15:30 98 25 H 100 02/24 15:15 96 20 98 12/08/23 15:00 92 22 98 12/08/23 14:45 94 21 98 12/08/23 14:30 101 H 21 98 12/08/23 14:15 96 21 98 12/08/23 14:00 92 20 99 Intake and Output 12/08/23 12/09/23 12/09/23 22:59 06:59 14:59 Intake Total 1041.56 9211.484 5144.668 Output Total 631 250 8066 Balance 706.56 973.973 -537.332 Intake: IV 1000 1096 1093 Cefepime 2 gm In Sodium 100 Chloride 0.9% 100 ml @ 25 mls/hr IVPB Q8H ANN Rx#: [id number] Lactated Ringers 1,000 ml 875 @ 0 mls/hr IV .STK-MED ONE Rx#:[id number] Lactated Ringers 1,000 ml 125 875 875 @ 125 mls/hr IV .Q8H ANN Rx#:[id number] Potassium Chloride 10 meq 200 In Water For Injection 1 100ml.bag @ 100 mls/hr IVPB Q1H ANN Rx#: [id number] Pressure Bag 21 18 metroNIDAZOLE-NS PMX 500 100 mg In Saline 1 100ml.bag @ 100 mls/hr IVPB Q8H ANN Rx#:[id number] Intake, IV Titration 41.56 67.973 694.668 Amount ACETAMINOPHEN IV (For NPO 680 ) 680 mg In Empty Bag 1 bag @ 272 mls/hr IVPB Q6H ANN Rx#:[id number] Clevidipine Butyrate 25 10 mg In Empty Bag 1 bag @ 1 MG/HR 2 mls/hr IV .Q24H ANN Rx#:[id number] propofoL 1,000 mg In 31.56 67.973 14.668 Empty Bag 1 bag @ 15 MCG/ KG/MIN 4.001 mls/hr IV . Q24H ANN Rx#:[id number] Output: Gastric Drainage 300 Urine 149 486 8919 Other: Voiding Method Indwelling Catheter Indwelling Catheter Indwelling Catheter Weight 45.4 kg 45.4 kg ABP, PAP, CO, CI - Last 8 Hours Arterial Blood Pressure 119/92 Arterial Blood Pressure 99/80 Arterial Blood Pressure 151/71 Arterial Blood Pressure 104/54 Arterial Blood Pressure 114/58 Arterial Blood Pressure 130/59 Arterial Blood Pressure 126/61 Arterial Blood Pressure 119/60 Results CBC & Chem 7: 12/09/23 04:15 12/09/23 11:55 Labs: Abnormal Lab Results - Last 24 Hours (Table) 12/08/23 12/09/23 12/09/23 Range/Units 23:28 04:15 04:15 WBC 10.8 H (3.8-10.6) k/uL RBC 3.32 L (3.80-5.40) m/uL Hgb 10.9 L (11.4-16.0) gm/dL Hct 32.1 L (34.0-46.0) % Neutrophils # 9.9 H (1.3-7.7) k/uL Lymphocytes # 0.3 L (1.0-4.8) k/uL ABG pO2 (83-108) mmHg ABG HCO3 (21-25) mmol/L ABG Total CO2 (19-24) mmol/L ABG O2 Saturation (94-97) % Sodium 135 L (137-145) mmol/L Chloride 109 H (98-107) mmol/L BUN 20 H (7-17) mg/dL Glucose 109 H (74-99) mg/dL POC Glucose (mg/dL) 116 H (70-110) mg/dL Calcium 7.3 L (8.4-10.2) mg/dL 12/09/23 12/09/23 Range/Units 05:50 06:42 WBC (3.8-10.6) k/uL RBC (3.80-5.40) m/uL Hgb (11.4-16.0) gm/dL Hct (34.0-46.0) % Neutrophils # (1.3-7.7) k/uL Lymphocytes # (1.0-4.8) k/uL ABG pO2 165 H (83-108) mmHg ABG HCO3 26 H (21-25) mmol/L ABG Total CO2 28 H (19-24) mmol/L ABG O2 Saturation 98.8 H (94-97) % Sodium (137-145) mmol/L Chloride (98-107) mmol/L BUN (7-17) mg/dL Glucose (74-99) mg/dL POC Glucose (mg/dL) 128 H (70-110) mg/dL Calcium (8.4-10.2) mg/dL
--- NOTE | 2023-12-09 14:27 | P.PN ---
Subjective Progress Note Date: 12/09/23 CHIEF COMPLAINT: Perforated sigmoid diverticulitis HISTORY OF PRESENT ILLNESS: Patient is postop day #1 status post exploratory laparotomy, sigmoid colectomy and end colostomy. Patient extubated this morn ing. Afebrile. WBC is 10.8 Hgb 10.9 platelets 254 sodium is 135 potassium 3.8 creatinine 0.61. NG tube output 300. Urine output improving. PHYSICAL EXAM: VITAL SIGNS: Reviewed. GENERAL: Well-developed in no acute distress. ABDOMEN: Soft. Mildly distended. Tender at incision site. Incision clean dry and intact with janet in place. Ostomy on the left and stoma with a small piece of stool noted NEUROLOGIC: Alert and oriented. Cranial nerves II through XII grossly intact. ASSESSMENT: 1. Perforated sigmoid diverticulitis PLAN: -Continue NG tube for decompression -Keep patient n.p.o. -IV Dilaudid as needed and IV Tylenol scheduled added for pain control -Continue ICU management -Continue IV fluids DVT prophylaxis subcu heparin GI prophylaxis Protonix Physician It Security Consultant note has been reviewed by physician. Signing provider agrees with the documented findings, assessment, and plan of care. I have personally seen and examined the patient, reviewed the BUSINESS SUPPORT SPECIALIST /PAs history, exam and MDM and agree with the assessment and plan as written. Based on total visit time, I have performed more than 50% of the visit. As above: Patient doing better today. Pain is improving. No bowel function. Complaining of sore throat. White blood cell count normal today. Adequate urine output. Continue pulmonary toilet. Continue antibiotics. Continue gastric decompression and bowel rest. Gradually increase activity. Ostomy consult. Objective - Vital Signs Vital signs: Vital Signs Temp 98.2 F 12/09/23 14:00 Pulse 98 12/09/23 14:00 Resp 18 12/09/23 14:00 BP 145/66 12/09/23 14:00 Pulse Ox 100 12/09/23 14:00 FiO2 30 12/09/23 10:00 Intake & Output 12/08/23 12/09/23 12/09/23 18:59 06:59 18:59 Intake Total 3247.060 7413.512 9802.668 Output Total 795 735 2417 Balance 2387.060 1323.973 -157.332 Weight 44.452 kg 45.4 kg 45.4 kg Intake: IV 3200 1596 1318 Cefepime 2 gm In Sodium 100 Chloride 0.9% 100 ml @ 25 mls/hr IVPB Q8H ANN Rx#: [id number] Lactated Ringers 1,000 ml 1000 375 @ 0 mls/hr IV .STK-MED ONE Rx#:[id number] Lactated Ringers 1,000 ml 1000 1000 @ 125 mls/hr IV .Q8H ANN Rx#:[id number] Potassium Chloride 10 meq 200 In Water For Injection 1 100ml.bag @ 100 mls/hr IVPB Q1H ANN Rx#: [id number] Pressure Bag 21 18 metroNIDAZOLE-NS PMX 500 100 100 mg In Saline 1 100ml.bag @ 100 mls/hr IVPB Q8H ANN Rx#:[id number] Intake, IV Titration 47.060 67.973 894.668 Amount ACETAMINOPHEN IV (For NPO 680 ) 680 mg In Empty Bag 1 bag @ 272 mls/hr IVPB Q6H ANN Rx#:[id number] Clevidipine Butyrate 25 15.033 mg In Empty Bag 1 bag @ 1 MG/HR 2 mls/hr IV .Q24H ANN Rx#:[id number] Potassium Chloride 10 meq 200 In Water For Injection 1 100ml.bag @ 100 mls/hr IVPB Q1H ANN Rx#: [id number] propofoL 1,000 mg In 32.027 67.973 14.668 Empty Bag 1 bag @ 15 MCG/ KG/MIN 4.001 mls/hr IV . Q24H ANN Rx#:[id number] Output: Gastric Drainage 300 Urine 492 638 7273 Estimated Blood Loss 25 Other: Voiding Method Indwelling Catheter Indwelling Catheter Indwelling Catheter ABP, PAP, CO, CI - Last Documented Arterial Blood Pressure 119/92 - Labs CBC & Chem 7: 12/09/23 04:15 12/09/23 11:55 Labs: Abnormal Lab Results - Last 24 Hours (Table) 12/08/23 12/09/23 12/09/23 Range/Units 23:28 04:15 04:15 WBC 10.8 H (3.8-10.6) k/uL RBC 3.32 L (3.80-5.40) m/uL Hgb 10.9 L (11.4-16.0) gm/dL Hct 32.1 L (34.0-46.0) % Neutrophils # 9.9 H (1.3-7.7) k/uL Lymphocytes # 0.3 L (1.0-4.8) k/uL ABG pO2 (83-108) mmHg ABG HCO3 (21-25) mmol/L ABG Total CO2 (19-24) mmol/L ABG O2 Saturation (94-97) % Sodium 135 L (137-145) mmol/L Chloride 109 H (98-107) mmol/L BUN 20 H (7-17) mg/dL Glucose 109 H (74-99) mg/dL POC Glucose (mg/dL) 116 H (70-110) mg/dL Calcium 7.3 L (8.4-10.2) mg/dL 12/09/23 12/09/23 Range/Units 05:50 06:42 WBC (3.8-10.6) k/uL RBC (3.80-5.40) m/uL Hgb (11.4-16.0) gm/dL Hct (34.0-46.0) % Neutrophils # (1.3-7.7) k/uL Lymphocytes # (1.0-4.8) k/uL ABG pO2 165 H (83-108) mmHg ABG HCO3 26 H (21-25) mmol/L ABG Total CO2 28 H (19-24) mmol/L ABG O2 Saturation 98.8 H (94-97) % Sodium (137-145) mmol/L Chloride (98-107) mmol/L BUN (7-17) mg/dL Glucose (74-99) mg/dL POC Glucose (mg/dL) 128 H (70-110) mg/dL Calcium (8.4-10.2) mg/dL
[2023-12-09] MEDS: NICOTINE 21MG/24HR PATCH TRANSDERM SCH (14:47)
--- NOTE | 2023-12-09 15:17 | P.PN ---
Subjective Progress Note Date: 12/09/23 Principal diagnosis: Reason for follow-up is perforated diverticulitis and abscess Patient is a 78-year-old female with a past medical history significant for COPD hypertension rheumatoid arthritis presenting to the ER for evaluation of epigastric abdominal pain, patient did have a CT abdominal pelvis concerning for free subsequently taken to the OR status post laparotomy with evidence of perforated sigmoid diverticulitis status post sigmoid colectomy and end colostomy. On today's evaluation that is 12/09/2023, the patient continues to be afebrile, patient has been extubated this morning and is patient is currently breathing comfortably on 3 L nasal cannula oxygen, the patient denies having any chest pain shortness of breath patient did have a cough not bring up any sputum some nausea but no vomiting complaining of abdominal pain. Patient white count of 10.8, creatinine 0.61, abdominal cultures currently pending Objective - Vital Signs Vital signs: Vital Signs Temp 98.4 F 12/09/23 10:00 Pulse 98 12/09/23 10:00 Resp 11 L 12/09/23 10:00 BP 120/61 12/09/23 10:00 Pulse Ox 97 12/09/23 10:00 FiO2 30 12/09/23 10:00 Intake & Output 12/08/23 12/09/23 12/09/23 18:59 06:59 18:59 Intake Total 3247.060 1663.973 726.668 Output Total 311 025 4444 Balance 2387.060 1323.973 -753.332 Weight 44.452 kg 45.4 kg Intake: IV 3200 1596 712 Cefepime 2 gm In Sodium 100 Chloride 0.9% 100 ml @ 25 mls/hr IVPB Q8H [facility] Rx#: [id number] Lactated Ringers 1,000 ml 1000 375 @ 0 mls/hr IV .[facility] Rx#:[id number] Lactated Ringers 1,000 ml 1000 500 @ 125 mls/hr IV .Q8H [facility] Rx#:[id number] Potassium Chloride 10 meq 200 In Water For Injection 1 100ml.bag @ 100 mls/hr IVPB Q1H [facility] Rx#: [id number] Pressure Bag 21 12 metroNIDAZOLE-NS PMX 500 100 mg In Saline 1 100ml.bag @ 100 mls/hr IVPB Q8H [facility] Rx#:[id number] Intake, IV Titration 47.060 67.973 14.668 Amount Clevidipine Butyrate 25 15.033 mg In Empty Bag 1 bag @ 1 MG/HR 2 mls/hr IV .Q24H [facility] Rx#:[id number] propofoL 1,000 mg In 32.027 67.973 14.668 Empty Bag 1 bag @ 15 MCG/ KG/MIN 4.001 mls/hr IV . Q24H [facility] Rx#:[id number] Output: Gastric Drainage 300 Urine 548 471 4578 Stool 5 Estimated Blood Loss 25 Other: Voiding Method Indwelling Catheter Indwelling Catheter Indwelling Catheter ABP, PAP, CO, CI - Last Documented Arterial Blood Pressure 151/71 - Exam GENERAL DESCRIPTION: An elderly female lying in bed in no distress RESPIRATORY SYSTEM: Unlabored breathing , decreased breath sounds at bases HEART: S1 S2 regular rate and rhythm , ABDOMEN: Soft , mild tenderness EXTREMITIES: No edema feet - Labs CBC & Chem 7: 12/09/23 04:15 12/09/23 11:55 Labs: Abnormal Lab Results - Last 24 Hours (Table) 12/08/23 12/08/23 12/08/23 Range/Units 11:02 11:02 11:10 WBC (3.8-10.6) k/uL RBC 3.72 L (3.80-5.40) m/uL Hgb (11.4-16.0) gm/dL Hct (34.0-46.0) % Neutrophils # (1.3-7.7) k/uL Neutrophils # (Manual) 7.90 H (1.3-7.7) k/uL Lymphocytes # (1.0-4.8) k/uL Lymphocytes # (Manual) 0.62 L (1.0-4.8) k/uL ABG pH 7.28 L (7.35-7.45) ABG pCO2 51 H (35-45) mmHg ABG pO2 >400 H (83-108) mmHg ABG HCO3 (21-25) mmol/L ABG Total CO2 26 H (19-24) mmol/L ABG O2 Saturation 99.3 H (94-97) % Sodium (137-145) mmol/L Chloride 111 H (98-107) mmol/L BUN 19 H (7-17) mg/dL Creatinine 0.51 L (0.52-1.04) mg/dL Glucose 102 H (74-99) mg/dL POC Glucose (mg/dL) (70-110) mg/dL Calcium 6.9 L (8.4-10.2) mg/dL 12/08/23 12/09/23 12/09/23 Range/Units 23:28 04:15 04:15 WBC 10.8 H (3.8-10.6) k/uL RBC 3.32 L (3.80-5.40) m/uL Hgb 10.9 L (11.4-16.0) gm/dL Hct 32.1 L (34.0-46.0) % Neutrophils # 9.9 H (1.3-7.7) k/uL Neutrophils # (Manual) (1.3-7.7) k/uL Lymphocytes # 0.3 L (1.0-4.8) k/uL Lymphocytes # (Manual) (1.0-4.8) k/uL ABG pH (7.35-7.45) ABG pCO2 (35-45) mmHg ABG pO2 (83-108) mmHg ABG HCO3 (21-25) mmol/L ABG Total CO2 (19-24) mmol/L ABG O2 Saturation (94-97) % Sodium 135 L (137-145) mmol/L Chloride 109 H (98-107) mmol/L BUN 20 H (7-17) mg/dL Creatinine (0.52-1.04) mg/dL Glucose 109 H (74-99) mg/dL POC Glucose (mg/dL) 116 H (70-110) mg/dL Calcium 7.3 L (8.4-10.2) mg/dL 12/09/23 12/09/23 Range/Units 05:50 06:42 WBC (3.8-10.6) k/uL RBC (3.80-5.40) m/uL Hgb (11.4-16.0) gm/dL Hct (34.0-46.0) % Neutrophils # (1.3-7.7) k/uL Neutrophils # (Manual) (1.3-7.7) k/uL Lymphocytes # (1.0-4.8) k/uL Lymphocytes # (Manual) (1.0-4.8) k/uL ABG pH (7.35-7.45) ABG pCO2 (35-45) mmHg ABG pO2 165 H (83-108) mmHg ABG HCO3 26 H (21-25) mmol/L ABG Total CO2 28 H (19-24) mmol/L ABG O2 Saturation 98.8 H (94-97) % Sodium (137-145) mmol/L Chloride (98-107) mmol/L BUN (7-17) mg/dL Creatinine (0.52-1.04) mg/dL Glucose (74-99) mg/dL POC Glucose (mg/dL) 128 H (70-110) mg/dL Calcium (8.4-10.2) mg/dL Assessment and Plan (1) Intra-abdominal abscess Current Visit: Yes Status: Acute Code(s): K65.1 - PERITONEAL ABSCESS SNOMED Code(s): 31279567 (2) Allergy to multiple antibiotics Current Visit: Yes Status: Acute Code(s): Z88.1 - ALLERGY STATUS TO OTHER ANTIBIOTIC AGENTS SNOMED Code(s): 011826744 (3) Perforated viscus Current Visit: Yes Status: Acute Code(s): R19.8 - OTH SYMPTOMS AND SIGNS INVOLVING THE DGSTV SYS AND ABDOMEN SNOMED Code(s): 468916998 Plan: 1patient presented to hospital with abdominal pain has been diagnosed with a p erforated viscus in this patient was status post laparotomy with evidence of perforated sigmoid diverticulitis status post laparotomy sigmoid colectomy and end colostomy for likely organism need to cover will be enteric gram-negative both aerobes and anaerobes 2-patient with multiple antibiotic ALLERGIES that would limit the number of antibiotic safe to use 3-patient to continue with cefepime 2 g every 8 and Flagyl, while waiting for the culture to finalize Son at the bedside question were answered Dictation was produced using [employer] dictation software. please excuse any grammatical, word or spelling errors. Time with Patient: Less than 30
[2023-12-09] MEDS: CEFEPIME 2 GM in SODIUM CHLORIDE 0.9% 100 ML IVPB SCH (17:28)
[2023-12-09 18:24] LABS: Glucose,Whole Blood 67 mg/dL (70-110)
[2023-12-09] MEDS: DEXTROSE 50% SYRINGE 50 ML IVP PRN (18:25)
[2023-12-09 18:35] LABS: Glucose,Whole Blood 181 mg/dL (70-110)
[2023-12-09] MEDS ORDERED: NON FORMULARY DRUG (Budesonide/Glycopyr/Formoterol [Breztri Aerosphere Inhaler] 10.7 GM Gm INHALATION SCH (20:00)
[2023-12-09] MEDS: ZOLPIDEM 5 MG TAB PO PRN (23:21)
[2023-12-10] MEDS: BENZOCAINE SPRAY 1 CAN MUCOUS MEM PRN (00:20)
[2023-12-10 00:56] LABS: Glucose,Whole Blood 72 mg/dL (70-110)
[2023-12-10 05:01] LABS: Basophils % (A) 0 %; Eosinophils # (A) 0.1 k/uL (0-0.7); Eosinophils % (A) 1 %; HCT 29.2 % (34.0-46.0); HGB 10.8 gm/dL (11.4-16.0); Lymphocytes # (A) 0.5 k/uL (1.0-4.8); Lymphocytes % (A) 4 %; MCH 35.8 pg (25.0-35.0); MCHC 37.1 g/dL (31.0-37.0); MCV 96.4 fL (80.0-100.0); Mean Platelet Volume 7.9; Monocytes # (A) 0.4 k/uL (0-1.0); Monocytes % (A) 3 %; Neutrophils # (A) 12.6 k/uL (1.3-7.7); Neutrophils % (A) 91 %; Platelet Count 255 k/uL (150-450); RBC 3.03 m/uL (3.80-5.40); RDW 12.9 % (11.5-15.5); WBC 13.8 k/uL (3.8-10.6)
[2023-12-10 05:02] LABS: African American GFR (CKD) 82 (>60 ml/min/1.73 sqM); Anion Gap 3 mmol/L; Blood Urea Nitrogen 20 mg/dL (7-17); Calcium 7.4 mg/dL (8.4-10.2); Carbon Dioxide 24 mmol/L (22-30); Chloride 106 mmol/L (98-107); Non-African American GFR(CKD) 72 (>60 ml/min/1.73 sqM); Potassium 3.8 mmol/L (3.5-5.1); Sodium 133 mmol/L (137-145)
[2023-12-10 05:07] LABS: Glucose 43 mg/dL (74-99)
[2023-12-10 05:10] LABS: Glucose,Whole Blood 53 mg/dL (70-110)
[2023-12-10 05:34] LABS: Glucose,Whole Blood 201 mg/dL (70-110)
--- NOTE | 2023-12-10 08:17 | XR ---
EXAMINATION TYPE: XR chest 1V portable DATE OF EXAM: 12/10/2023 COMPARISON: December 09, 2023 HISTORY: SOB, Follow Up FINDINGS: Indwelling tubes and catheters are unchanged. Mildly increasing patchy density right lower lobe. Stable appearance of the cardio-mediastinal structures at this time. Slight increase in small basilar effusions. IMPRESSION: 1. Mildly increasing patchy density right lower lobe and slight increase in small basilar effusions. Clinical correlation and follow up until resolution is recommended.
--- NOTE | 2023-12-10 09:19 | P.PN ---
Subjective Progress Note Date: 12/10/23 This is a 78-year-old female patient with a history of rheumatoid arthritis, hypertension, hyperlipidemia, gastroesophageal reflux disease chronic obstructive pulmonary disease with chronic and ongoing tobacco dependence. She presented to the emergency room early this morning with complaints of severe ep igastric abdominal pain. She has a prior history of gastric ulcers and frequently has abdominal pain. ET scan of the abdomen revealed evidence of free air. Gastric or proximal duodenal ulcer perforation was suspected given severe gastric antral wall thickening. Chest x-ray revealed no acute pulmonary process. White count 8.8. Hemoglobin 12.5. Platelets 263. Sodium 138. Potassium 4.0. Bicarb 23. BUN 19. Creatinine 0.51. Glucose 102. Viral screen was negative. Lipase 11. Amylase less than 30. AST 56. ALT 48. She was taken to the operating room and had undergone a full oratory laparotomy, sigmoid colectomy and end colostomy for a perforated sigmoid diverticulitis. She remained intubated and on the mechanical ventilator and transferred to the intensive care unit. Current vent to later settings are assist-control mode at a rate of 14, tidal line 350, FiO2 100% and a PEEP of 5. She is sedated on propofol at 20 mcg/kg/min. She has lactated Ringer's at 125 MLS per hour. She is on antibiotics in the form of Levaquin and Flagyl. Abdominal dressing is dry and intact. There is a left colostomy in place. Right radial arterial line in place. She is somewhat hypertensive and initiated on Cleviprex infusion 1 mg/h. Dilaudid for pain control. The patient is seen today December 09, 2023 in follow-up in the intensive care unit. She remains intubated on mechanical ventilator. Current settings are assist-control mode at a rate of 20, tidal line 350, FiO2 30% and a PEEP of 5. Morning blood gases reveal a pO2 of 165, pCO2 39 and a pH of 7.43. These were on FiO2 40%. Sedated on propofol at 20 mics per kilogram per minute. Lactated Ringer's at 125 MLS per hour. She remains on bronchodilators. Antibiotics in the form of cefepime and Flagyl. Heparin for DVT prophylaxis. Chest x-ray reveals no significant change. Evidence of COPD. The patient is seen today December 10, 2023 in follow-up in the intensive care unit. She is awake and alert in no acute distress. She is maintaining good O2 saturations in the 90s on room air. She has lactated Ringer's at 125 MLS per hour. Nasogastric tube remains in place. He is continued on DuoNeb ventilations, Pulmicort and perform scintillations, Singulair. NicoDerm patch in place. She remains on heparin for DVT prophylaxis. Antibiotics in the form of cefepime and Flagyl. Wound culture positive for gram-negative bacilli. White count 13.8. Hemoglobin 10.8. Platelets 255. Sodium 133. Potassium 3.8. Bicarb 24. BUN 20. Creatinine 0.80. Glucose 201 after treatment for hypoglycemia. Currently NPO. Chest x-ray reveals patchy density in the right lower lobe and slight increase in small basilar effusions. Objective - Vital Signs Vital signs: Vital Signs Temp 98.4 F 12/10/23 04:00 Pulse 89 12/10/23 09:07 Resp 14 12/10/23 04:00 BP 158/82 12/10/23 04:00 Pulse Ox 94 L 12/10/23 08:48 FiO2 30 12/09/23 10:00 Intake & Output 12/09/23 12/10/23 12/10/23 18:59 06:59 18:59 Intake Total 2712.668 375 Output Total 2490 720 Balance 222.668 -345 Weight 45.4 kg 44.9 kg Intake: IV 1818 375 Lactated Ringers 1,000 ml 1500 375 @ 125 mls/hr IV .Q8H [facility] Rx#:[id number] Potassium Chloride 10 meq 200 In Water For Injection 1 100ml.bag @ 100 mls/hr IVPB Q1H [facility] Rx#: [id number] Pressure Bag 18 metroNIDAZOLE-NS PMX 500 100 mg In Saline 1 100ml.bag @ 100 mls/hr IVPB Q8H [facility] Rx#:[id number] Intake, IV Titration 894.668 Amount ACETAMINOPHEN IV (For NPO 680 ) 680 mg In Empty Bag 1 bag @ 272 mls/hr IVPB Q6H [facility] Rx#:[id number] Potassium Chloride 10 meq 200 In Water For Injection 1 100ml.bag @ 100 mls/hr IVPB Q1H [facility] Rx#: [id number] propofoL 1,000 mg In 14.668 Empty Bag 1 bag @ 15 MCG/ KG/MIN 4.001 mls/hr IV . Q24H [facility] Rx#:[id number] Output: Gastric Drainage 300 Urine 2190 720 Other: Voiding Method Indwelling Catheter Indwelling Catheter ABP, PAP, CO, CI - Last Documented Arterial Blood Pressure 119/92 - Exam GENERAL EXAM: Awake, alert, on room air, 78-year-old female, in no apparent distress. HEAD: Normocephalic. EYES: Sluggish reaction of pupils, equal size. NOSE: Clear with pink turbinates. THROAT: Nasogastric tube secured in place. No erythema or exudates. NECK: No masses, no JVD. CHEST: No chest wall deformity. LUNGS: Equal air entry with faint crackles in the posterior bases. CVS: S1 and S2 normal with no audible murmur, regular rhythm. ABDOMEN: Abdominal dressing dry and intact. Left abdominal ostomy present. SPINE: No scoliosis or deformity SKIN: No rashes CENTRAL NERVOUS SYSTEM: Sedated, tone is normal in all 4 extremities. EXTREMITIES: Right radial arterial line in place there is no peripheral edema. No clubbing, no cyanosis. Peripheral pulses are intact. - Labs CBC & Chem 7: 12/10/23 04:22 12/10/23 04:22 Labs: Abnormal Lab Results - Last 24 Hours (Table) 12/09/23 12/09/23 12/10/23 Range/Units 18:23 18:33 04:22 WBC 13.8 H (3.8-10.6) k/uL RBC 3.03 L (3.80-5.40) m/uL Hgb 10.8 L (11.4-16.0) gm/dL Hct 29.2 L (34.0-46.0) % MCH 35.8 H (25.0-35.0) pg MCHC 37.1 H (31.0-37.0) g/dL Neutrophils # 12.6 H (1.3-7.7) k/uL Lymphocytes # 0.5 L (1.0-4.8) k/uL Sodium (137-145) mmol/L BUN (7-17) mg/dL Glucose (74-99) mg/dL POC Glucose (mg/dL) 67 L 181 H (70-110) mg/dL Calcium (8.4-10.2) mg/dL 12/10/23 12/10/23 12/10/23 Range/Units 04:22 05:09 05:33 WBC (3.8-10.6) k/uL RBC (3.80-5.40) m/uL Hgb (11.4-16.0) gm/dL Hct (34.0-46.0) % MCH (25.0-35.0) pg MCHC (31.0-37.0) g/dL Neutrophils # (1.3-7.7) k/uL Lymphocytes # (1.0-4.8) k/uL Sodium 133 L (137-145) mmol/L BUN 20 H (7-17) mg/dL Glucose 43 L* (74-99) mg/dL POC Glucose (mg/dL) 53 L 201 H (70-110) mg/dL Calcium 7.4 L (8.4-10.2) mg/dL Microbiology - Last 24 Hours (Table) 12/08/23 09:40 Gram Stain - Preliminary Other - Other Wound Culture - Preliminary Gram Neg Bacilli Assessment and Plan Assessment: Severe acute abdominal pain secondary to perforated sigmoid diverticulitis. Status post exploratory laparotomy, sigmoid colectomy, end colostomy. Postoperative day #2 Acute hypoxemic respiratory failure secondary to above requiring prolonged ventilation postoperatively recovered and on room air Severe protein calorie malnutrition with a BMI of less than 20 kg/m History of gastric ulcers and esophagitis History of rheumatoid arthritis History of chronic obstructive pulmonary disease History of chronic tobacco dependence History of hypertension History of hyperlipidemia History of gastroesophageal reflux disease Plan: The patient was seen and evaluated Chest x-ray, labs and medications reviewed Continue Flagyl and cefepime Continue bronchodilators Lactated Ringer's at 125 MLS per hour Dietary consult for nutritional support Titrate the FiO2 as tolerated Encouraged the increased use of the incentive spirometer Continue bronchodilators Stable for transfer out of the ICU We will continue to follow I have personally seen and examined the patient, performed the documentation and the assessment and plan as written. Number of minutes spent on the visit: 10.
[2023-12-10] MEDS ORDERED: NICOTINE GUM (POLACRILEX) 2 MG GUM BUCCAL PRN (11:32)
[2023-12-10 12:10] LABS: Glucose,Whole Blood 70 mg/dL (70-110)
[2023-12-10] MEDS: haloperidoL 1 MG TAB PO STA (13:06)
[2023-12-10] MEDS: HALOPERIDOL LACTATE 5 MG/ML 1 ML VIAL IM STA (14:58)
[2023-12-10] MEDS: HYDROmorphone 0.5 MG/0.5 ML SYRINGE IVP STA (15:04)
--- NOTE | 2023-12-10 15:11 | P.PN ---
Progress Note - Text Progress Note Date: 12/10/23 - Chief Complaint Abdominal pain - History of Present Illness This is a pleasant 78-year-old patient, chronic stable medical conditions include COPD, hypertension, rheumatoid arthritis. Patient is active smoker. Patient with 3 days been having increasing abdominal pain. Presented to the ER. CT scan showed free air. Patient was taken to the OR yesterday by Dr. Lentz. Underwent exploratory laparotomy. Found to have a perforated sigmoid d iverticulitis. Sigmoid colectomy with end colostomy was done. Today in the ICU: Extubated earlier today. 2 L nasal cannula. Has NG tube to suction. No output in the colostomy bag. Son at the bedside. Pain at the surgical site. December 10: Patient moved out of the ICU. NG tube to intermittent suction. Did not sleep well yesterday. States when she tries to close her eyes she starts hallucinating. Given one-time dose of Haldol. Having significant pain at the operative site. Pain medications per surgical team. No output through colostomy bag. Discussed with nurse. Sons at the bedside. Also added Nicorette gum as needed. Hypoglycemia: Change IV fluids to D5.45. Patient on IV cefepime and IV Flagyl. Active Medications Albuterol Sulfate (Albuterol Nebulized 2.5 Mg/3 Ml) 2.5 mg INHALATION RT-Q4H PRN PRN Reason: Shortness Of Breath Albuterol/Ipratropium (Ipratropium-Albuterol 3 Ml Neb) 3 ml INHALATION RT-Q2H PRN PRN Reason: Shortness Of Breath Or Wheezing Albuterol/Ipratropium (Ipratropium-Albuterol 3 Ml Neb) 3 ml INHALATION RT-QID [facility] Last Admin: 12/10/23 11:37 Dose: 3 ml Atorvastatin Calcium (Atorvastatin 20 Mg Tab) 20 mg PO DAILY [facility] Last Admin: 12/10/23 08:38 Dose: 20 mg Benzocaine (Benzocaine [place] 1 Can) 1 spray MUCOUS MEM QID PRN; Protocol PRN Reason: Mouth Irritation Last Admin: 12/10/23 00:20 Dose: 1 spray Benzocaine/Menthol (Benzocaine/Menthol Lozeng 1 Each Lozenge) 1 each MUCOUS MEM Q4HR PRN PRN Reason: Sore Throat Budesonide (Budesonide 1 Mg/2 Ml Nebu) 1 mg INHALATION RT-BID [facility] Last Admin: 12/10/23 08:45 Dose: 1 mg Dextrose/Water (Dextrose 50% Syringe 50 Ml) 25 ml IVP PER PROTOCOL PRN; Protocol PRN Reason: Hypoglycemia Last Admin: 12/10/23 05:16 Dose: 25 ml Dextrose/Water (Dextrose 50% Syringe 50 Ml) 50 ml IVP PER PROTOCOL PRN; Protocol PRN Reason: Hypoglycemia Formoterol Fumarate (Formoterol Fumarate 20 Mcg/2 Ml Nebu) 20 mcg INHALATION RT-BID [facility] Last Admin: 12/10/23 08:45 Dose: 20 mcg Heparin Sodium (Porcine) (Heparin Sodium,Porcine 5,000 Unit/Ml 1 Ml Vial) 5,000 unit SQ Q8HR [facility] Last Admin: 12/10/23 08:38 Dose: 5,000 unit Hydromorphone HCl (Hydromorphone 1 Mg/Ml 1 Ml Syringe) 1 mg IVP Q3HR PRN PRN Reason: Pain Last Admin: 12/10/23 12:21 Dose: 1 mg Hydroxychloroquine Sulfate (Hydroxychloroquine Sulfate 200 Mg Tab) 200 mg PO BID [facility] Last Admin: 12/10/23 09:25 Dose: 200 mg Metronidazole 500 mg/ IV (Solution) 100 mls @ 100 mls/hr IVPB Q8H [facility]; Protocol Last Admin: 12/10/23 11:54 Dose: 100 mls/hr Lactated Ringer's (Lactated Ringers) 1,000 mls @ 125 mls/hr IV .Q8H [facility] Last Admin: 12/10/23 08:44 Dose: 125 mls/hr Cefepime HCl 2 gm/ Sodium (Chloride) 100 mls @ 25 mls/hr IVPB Q12H [facility]; Protocol Last Admin: 12/10/23 05:17 Dose: 25 mls/hr Metoprolol Tartrate (Metoprolol Tartrate 5 Mg/5 Ml Vial) 5 mg IVP Q6HR PRN PRN Reason: Blood Pressure - High Miscellaneous Information (Magnesium Replacement Protocol 1 Each Misc) 1 each MISCELLANE DAILY PRN; Protocol PRN Reason: Per Protocol Miscellaneous Information (Potassium Replacement Protocol 1 Each Misc) 1 each MISCELLANE DAILY PRN; Protocol PRN Reason: Per Protocol Montelukast Sodium (Montelukast 10 Mg Tab) 10 mg PO DAILY [facility] Last Admin: 12/10/23 08:38 Dose: 10 mg Naloxone HCl (Naloxone 0.4 Mg/Ml 1 Ml Vial) 0.2 mg IV Q2M PRN PRN Reason: Opioid Reversal Nicotine (Nicotine 21mg/24hr Patch) 1 patch TRANSDERM DAILY [facility] Last Admin: 12/10/23 08:38 Dose: 1 patch Nicotine Polacrilex (Nicotine Gum (Polacrilex) 2 Mg Gum) 2 mg BUCCAL Q4HR PRN PRN Reason: Nicotine Cravings Pantoprazole Sodium (Pantoprazole 40 Mg/10 Ml Vial) 40 mg IV DAILY [facility] Last Admin: 12/10/23 08:38 Dose: 40 mg Temazepam (Temazepam 15 Mg Cap) 15 mg PO HS PRN PRN Reason: Insomnia Social history: Patient been smoking for many years. Was up to 4 packs a day. Now down to a pack a day. Works at [employer]. Lives with her son. Physical examination: VITAL SIGNS: Afebrile, 103, 20, 167 x 84, 96% room air GENERAL: BMI 18.3, awake reclining in bed, a bit uncomfortable EYES: Pupils equal. Conjunctiva micheal l. HEENT: External appearance of nose and ears normal, oral cavity grossly normal. Diminished hearing in the right ear. NG tube to suction NECK: JVD not raised; masses not palpable. HEART: First and second heart sounds are normal; no edema. LUNGS:[ Respiratory rate increased, diminished breath sounds. ABDOMEN: Soft, tender, no guarding rigidity, liver spleen not palpable, no masses palpable. Left-sided colostomy bag-no output. PSYCH: [Alert and oriented x3; mood and affect anxious. MUSCULOSKELETAL:No Clubbing/cyanosis;muscles-grossly intact INVESTIGATIONS, reviewed in the clinical context: December 10: White count 13.8 hemoglobin 10.8 platelets 255 potassium 3.8 creatinine 0.8 glucose 43 December 09: White count 10.8 hemoglobin 10.9 platelets 254 sodium 135 potassium 3.8 BUN 20 creatinine 0.61 Chest x-ray film personally reviewed by me-hyperinflation Telemetry strip bedside monitor: Personally reviewed by me. Sinus rhythm CT scan abdomen pelvis: Moderate prominence of the stomach. Severe wall thickening of the gastric antrum. Distal colonic diverticulosis. Free air identified anterior to the bladder. Assessment and plan: -Acute sigmoid diverticulitis with perforation. Patient underwent sigmoid resection and formation of her colostomy on December [address] Lentz. NPO. NG tube to suction. IV cefepime and IV Flagyl. -Postop surgical site pain. Pain medications per surgical team -Possible secondary peritonitis from perforation IV cefepime and IV Flagyl. ID following -COPD and a current smoker DuoNeb 3 times daily. Singulair.. Breztri inhaler -Chronic nicotine dependence, cigarette smoker Nicotine patch -Hyperlipidemia Lipitor 20 mg a day -Severe protein calorie malnutrition. BMI 18.3. Consult dietitian -Chronic muscle spasm Baclofen as needed -Peptic ulcer disease PPI -Hypoglycemia from poor oral intake: New diagnosis Change IV fluids to D5.45 at 125 cc an hour. -Essential hypertension Lopressor 25 mg twice daily -Insomnia with hallucinations. Use one-time dose of Haldol. Was given Ambien last night. Taken to Restoril. Haldol one-time dose. Change Ambien to Restoril. Change IV fluids to D5.45. Thank you Dr. Lentz Past Medical History Past Medical History: COPD, Hypertension, Rheumatoid Arthritis (RA) Additional Past Medical History / Comment(s): bleeding ulcer History of Any Multi-Drug Resistant Organisms: None Reported Past Surgical History: Tubal Ligation Additional Past Surgical History / Comment(s): Eye surgery (cataracts removed). Past Anesthesia/Blood Transfusion Reactions: No Reported Reaction Past Psychological History: No Psychological Hx Reported Smoking Status: Current every day smoker Past Alcohol Use History: Rare Past Drug Use History: None Reported
[2023-12-10] MEDS: DEXTROSE 5%-0.45% NACL 1,000 ML IV SCH (15:14)
--- NOTE | 2023-12-10 15:16 | P.PN ---
Subjective Progress Note Date: 12/10/23 NAEON. No N/V. No F/C. Endorses incisional abdominal pain. NO SOB or CP. Minimal ambulation. NGT intact with minimal output. Objective - Vital Signs Vital signs: Vital Signs Temp 98.2 F 12/10/23 08:25 Pulse 103 H 12/10/23 13:12 Resp 20 12/10/23 11:55 BP 167/84 12/10/23 11:55 Pulse Ox 96 12/10/23 11:55 FiO2 30 12/09/23 10:00 Intake & Output 12/09/23 12/10/23 12/10/23 18:59 06:59 18:59 Intake Total 2712.668 375 Output Total 2490 720 25 Balance 222.668 -345 -25 Weight 45.4 kg 44.9 kg Intake: IV 1818 375 Lactated Ringers 1,000 ml 1500 375 @ 125 mls/hr IV .Q8H ANN Rx#:[id number] Potassium Chloride 10 meq 200 In Water For Injection 1 100ml.bag @ 100 mls/hr IVPB Q1H ANN Rx#: [id number] Pressure Bag 18 metroNIDAZOLE-NS PMX 500 100 mg In Saline 1 100ml.bag @ 100 mls/hr IVPB Q8H ANN Rx#:[id number] Intake, IV Titration 894.668 Amount ACETAMINOPHEN IV (For NPO 680 ) 680 mg In Empty Bag 1 bag @ 272 mls/hr IVPB Q6H ANN Rx#:[id number] Potassium Chloride 10 meq 200 In Water For Injection 1 100ml.bag @ 100 mls/hr IVPB Q1H ANN Rx#: [id number] propofoL 1,000 mg In 14.668 Empty Bag 1 bag @ 15 MCG/ KG/MIN 4.001 mls/hr IV . Q24H ANN Rx#:[id number] Output: Gastric Drainage 300 Urine 2190 720 25 Other: Voiding Method Indwelling Catheter Indwelling Catheter ABP, PAP, CO, CI - Last Documented Arterial Blood Pressure 119/92 - Exam Gen: AxO, NAD Pulm: non-labored respirations Abd: soft, moderately-tender, moderately-distended. No guarding/rebound/rigidity NGT: intact minimal output noted Ostomy; pink and patent, no gas or stool noted in bag Kalpesh: intact producing serous output Extrem: no edema seen - Labs CBC & Chem 7: 12/10/23 04:22 12/10/23 04:22 Labs: Abnormal Lab Results - Last 24 Hours (Table) 12/09/23 12/09/23 12/10/23 Range/Units 18:23 18:33 04:22 WBC 13.8 H (3.8-10.6) k/uL RBC 3.03 L (3.80-5.40) m/uL Hgb 10.8 L (11.4-16.0) gm/dL Hct 29.2 L (34.0-46.0) % MCH 35.8 H (25.0-35.0) pg MCHC 37.1 H (31.0-37.0) g/dL Neutrophils # 12.6 H (1.3-7.7) k/uL Lymphocytes # 0.5 L (1.0-4.8) k/uL Sodium (137-145) mmol/L BUN (7-17) mg/dL Glucose (74-99) mg/dL POC Glucose (mg/dL) 67 L 181 H (70-110) mg/dL Calcium (8.4-10.2) mg/dL 12/10/23 12/10/23 12/10/23 Range/Units 04:22 05:09 05:33 WBC (3.8-10.6) k/uL RBC (3.80-5.40) m/uL Hgb (11.4-16.0) gm/dL Hct (34.0-46.0) % MCH (25.0-35.0) pg MCHC (31.0-37.0) g/dL Neutrophils # (1.3-7.7) k/uL Lymphocytes # (1.0-4.8) k/uL Sodium 133 L (137-145) mmol/L BUN 20 H (7-17) mg/dL Glucose 43 L* (74-99) mg/dL POC Glucose (mg/dL) 53 L 201 H (70-110) mg/dL Calcium 7.4 L (8.4-10.2) mg/dL Microbiology - Last 24 Hours (Table) 12/08/23 09:40 Gram Stain - Preliminary Other - Other Wound Culture - Preliminary Gram Neg Bacilli Assessment and Plan Assessment: Patient is a 78 year old female who is s/p hartmanns resection Plan: -NPO -NGT to LIS -IVF hydration -PRN pain and nausea control -Encourage ambulation -DVT/GI PPx Jamey Lawson MD General Surgery
[2023-12-10 18:36] LABS: Glucose,Whole Blood 109 mg/dL (70-110)
[2023-12-10] MEDS: TEMAZEPAM 15 MG CAP PO PRN (21:14)
--- NOTE | 2023-12-10 23:22 | P.PN ---
Subjective Progress Note Date: 12/10/23 Principal diagnosis: Reason for follow-up is perforated diverticulitis and abscess Patient is a 78-year-old female with a past medical history significant for COPD hypertension rheumatoid arthritis presenting to the ER for evaluation of epigastric abdominal pain, patient did have a CT abdominal pelvis concerning for free subsequently taken to the OR status post laparotomy with evidence of perforated sigmoid diverticulitis status post sigmoid colectomy and end colostomy. On today's evaluation that is 12/10/2023, the patient denies having any fever or any chills, patient is breathing comfortably on room air, the patient denies having any chest pain shortness of breath , Pt did have occasional cough patient denies having any nausea vomiting however has been complaining of abdominal pain and did not have any output in the colostomy also complaining about the NG and when can it come out. Patient white count is 13.8, creatinine 0.80 abdominal culture with gram-n egative bacilli Objective - Vital Signs Vital signs: Vital Signs Temp 98.2 F 12/10/23 08:25 Pulse 89 12/10/23 09:07 Resp 20 12/10/23 08:25 BP 154/83 12/10/23 08:25 Pulse Ox 94 L 12/10/23 08:48 FiO2 30 12/09/23 10:00 Intake & Output 12/09/23 12/10/23 12/10/23 18:59 06:59 18:59 Intake Total 2712.668 375 Output Total 2490 720 Balance 222.668 -345 Weight 45.4 kg 44.9 kg Intake: IV 1818 375 Lactated Ringers 1,000 ml 1500 375 @ 125 mls/hr IV .Q8H ANN Rx#:[id number] Potassium Chloride 10 meq 200 In Water For Injection 1 100ml.bag @ 100 mls/hr IVPB Q1H ANN Rx#: [id number] Pressure Bag 18 metroNIDAZOLE-NS PMX 500 100 mg In Saline 1 100ml.bag @ 100 mls/hr IVPB Q8H ANN Rx#:[id number] Intake, IV Titration 894.668 Amount ACETAMINOPHEN IV (For NPO 680 ) 680 mg In Empty Bag 1 bag @ 272 mls/hr IVPB Q6H ANN Rx#:[id number] Potassium Chloride 10 meq 200 In Water For Injection 1 100ml.bag @ 100 mls/hr IVPB Q1H ANN Rx#: [id number] propofoL 1,000 mg In 14.668 Empty Bag 1 bag @ 15 MCG/ KG/MIN 4.001 mls/hr IV . Q24H ANN Rx#:[id number] Output: Gastric Drainage 300 Urine 2190 720 Other: Voiding Method Indwelling Catheter Indwelling Catheter Indwelling Catheter ABP, PAP, CO, CI - Last Documented Arterial Blood Pressure 119/92 - Exam GENERAL DESCRIPTION: An elderly female lying in bed in no distress RESPIRATORY SYSTEM: Unlabored breathing , decreased breath sounds at bases HEART: S1 S2 regular rate and rhythm , ABDOMEN: Soft , mild tenderness EXTREMITIES: No edema feet - Labs CBC & Chem 7: 12/10/23 04:22 12/10/23 04:22 Labs: Abnormal Lab Results - Last 24 Hours (Table) 12/09/23 12/09/23 12/10/23 Range/Units 18:23 18:33 04:22 WBC 13.8 H (3.8-10.6) k/uL RBC 3.03 L (3.80-5.40) m/uL Hgb 10.8 L (11.4-16.0) gm/dL Hct 29.2 L (34.0-46.0) % MCH 35.8 H (25.0-35.0) pg MCHC 37.1 H (31.0-37.0) g/dL Neutrophils # 12.6 H (1.3-7.7) k/uL Lymphocytes # 0.5 L (1.0-4.8) k/uL Sodium (137-145) mmol/L BUN (7-17) mg/dL Glucose (74-99) mg/dL POC Glucose (mg/dL) 67 L 181 H (70-110) mg/dL Calcium (8.4-10.2) mg/dL 12/10/23 12/10/23 12/10/23 Range/Units 04:22 05:09 05:33 WBC (3.8-10.6) k/uL RBC (3.80-5.40) m/uL Hgb (11.4-16.0) gm/dL Hct (34.0-46.0) % MCH (25.0-35.0) pg MCHC (31.0-37.0) g/dL Neutrophils # (1.3-7.7) k/uL Lymphocytes # (1.0-4.8) k/uL Sodium 133 L (137-145) mmol/L BUN 20 H (7-17) mg/dL Glucose 43 L* (74-99) mg/dL POC Glucose (mg/dL) 53 L 201 H (70-110) mg/dL Calcium 7.4 L (8.4-10.2) mg/dL Microbiology - Last 24 Hours (Table) 12/08/23 09:40 Gram Stain - Preliminary Other - Other Wound Culture - Preliminary Gram Neg Bacilli Assessment and Plan (1) Intra-abdominal abscess Current Visit: Yes Status: Acute Code(s): K65.1 - PERITONEAL ABSCESS SNOMED Code(s): 78096748 (2) Allergy to multiple antibiotics Current Visit: Yes Status: Acute Code(s): Z88.1 - ALLERGY STATUS TO OTHER ANTIBIOTIC AGENTS SNOMED Code(s): 781834661 (3) Perforated viscus Current Visit: Yes Status: Acute Code(s): R19.8 - OTH SYMPTOMS AND SIGNS INVOLVING THE DGSTV SYS AND ABDOMEN SNOMED Code(s): 445978438 Plan: 1patient presented to hospital with abdominal pain has been diagnosed with a perforated viscus in this patient was status post laparotomy with evidence of perforated sigmoid diverticulitis status post laparotomy sigmoid colectomy and end colostomy for likely organism need to cover will be enteric gram-negative both aerobes and anaerobes 2-patient with multiple antibiotic ALLERGIES that would limit the number of antibiotic safe to use 3-patient is afebrile has been moved out of the ICU abdominal culture growing gram-negative bacilli, patient to continue with cefepime 2 g every 8 and Flagyl, while waiting for the culture to finalize Family at the bedside question were answered Dictation was produced using [employer] dictation software. please excuse any grammatical, word or spelling errors. Time with Patient: Less than 30
[2023-12-10 23:55] LABS: Glucose,Whole Blood 129 mg/dL (70-110)
[2023-12-11 06:02] LABS: Glucose,Whole Blood 104 mg/dL (70-110)
--- NOTE | 2023-12-11 12:11 | P.PN ---
Subjective Progress Note Date: 12/11/23 Principal diagnosis: Diverticulitis Patient doing well today. Pain gradually improving. Labs pending for today. White blood cell count 13.8 yesterday. Abdominal cultures show E. coli. No nausea. No ostomy function yet. Hood catheter was removed and had to be replaced for retention. Objective - Vital Signs Vital signs: Vital Signs Temp 97.8 F 12/11/23 07:35 Pulse 93 12/11/23 11:01 Resp 20 12/11/23 11:01 BP 165/77 12/11/23 11:01 Pulse Ox 95 12/11/23 11:01 FiO2 30 12/09/23 10:00 Intake & Output 12/10/23 12/11/23 12/11/23 18:59 06:59 18:59 Output Total 1450 2350 1475 Balance -1450 -2350 -1475 Weight 35.5 kg Output: Gastric Drainage 100 Urine 1350 2350 1475 Other: Voiding Method Indwelling Catheter Indwelling Catheter ABP, PAP, CO, CI - Last Documented Arterial Blood Pressure 119/92 - Exam Abdomen: Soft, nondistended, incision clean and dry, packing in place, ostomy pink - Labs CBC & Chem 7: 12/10/23 04:22 12/10/23 04:22 Labs: Abnormal Lab Results - Last 24 Hours (Table) 12/10/23 Range/Units 23:53 POC Glucose (mg/dL) 129 H (70-110) mg/dL Microbiology - Last 24 Hours (Table) 12/08/23 09:40 Gram Stain - Preliminary Other - Other Wound Culture - Preliminary Escherichia coli Assessment and Plan (1) Perforated viscus Narrative/Plan: 78-year-old female doing well after Lucio's procedure. Plan removal of nasogastric tube. Change packing today. Continue antibiotics. Recheck labs. Current Visit: Yes Status: Acute Code(s): R19.8 - OTH SYMPTOMS AND SIGNS INVOLVING THE DGSTV SYS AND ABDOMEN SNOMED Code(s): 550978351
[2023-12-11 12:16] LABS: Glucose,Whole Blood 133 mg/dL (70-110)
--- NOTE | 2023-12-11 13:02 | P.PN ---
Subjective Progress Note Date: 12/11/23 This is a 78-year-old female patient with a history of rheumatoid arthritis, hypertension, hyperlipidemia, gastroesophageal reflux disease chronic obstructive pulmonary disease with chronic and ongoing tobacco dependence. She presented to the emergency room early this morning with complaints of severe ep igastric abdominal pain. She has a prior history of gastric ulcers and frequently has abdominal pain. ET scan of the abdomen revealed evidence of free air. Gastric or proximal duodenal ulcer perforation was suspected given severe gastric antral wall thickening. Chest x-ray revealed no acute pulmonary process. White count 8.8. Hemoglobin 12.5. Platelets 263. Sodium 138. Potassium 4.0. Bicarb 23. BUN 19. Creatinine 0.51. Glucose 102. Viral screen was negative. Lipase 11. Amylase less than 30. AST 56. ALT 48. She was taken to the operating room and had undergone a full oratory laparotomy, sigmoid colectomy and end colostomy for a perforated sigmoid diverticulitis. She remained intubated and on the mechanical ventilator and transferred to the intensive care unit. Current vent to later settings are assist-control mode at a rate of 14, tidal line 350, FiO2 100% and a PEEP of 5. She is sedated on propofol at 20 mcg/kg/min. She has lactated Ringer's at 125 MLS per hour. She is on antibiotics in the form of Levaquin and Flagyl. Abdominal dressing is dry and intact. There is a left colostomy in place. Right radial arterial line in place. She is somewhat hypertensive and initiated on Cleviprex infusion 1 mg/h. Dilaudid for pain control. The patient is seen today December 09, 2023 in follow-up in the intensive care unit. She remains intubated on mechanical ventilator. Current settings are assist-control mode at a rate of 20, tidal line 350, FiO2 30% and a PEEP of 5. Morning blood gases reveal a pO2 of 165, pCO2 39 and a pH of 7.43. These were on FiO2 40%. Sedated on propofol at 20 mics per kilogram per minute. Lactated Ringer's at 125 MLS per hour. She remains on bronchodilators. Antibiotics in the form of cefepime and Flagyl. Heparin for DVT prophylaxis. Chest x-ray reveals no significant change. Evidence of COPD. The patient is seen today December 10, 2023 in follow-up in the intensive care unit. She is awake and alert in no acute distress. She is maintaining good O2 saturations in the 90s on room air. She has lactated Ringer's at 125 MLS per hour. Nasogastric tube remains in place. He is continued on DuoNeb ventilations, Pulmicort and perform scintillations, Singulair. NicoDerm patch in place. She remains on heparin for DVT prophylaxis. Antibiotics in the form of cefepime and Flagyl. Wound culture positive for gram-negative bacilli. White count 13.8. Hemoglobin 10.8. Platelets 255. Sodium 133. Potassium 3.8. Bicarb 24. BUN 20. Creatinine 0.80. Glucose 201 after treatment for hypoglycemia. Currently NPO. Chest x-ray reveals patchy density in the right lower lobe and slight increase in small basilar effusions. The patient is seen today December 11, 2023 in follow-up on the selective care unit. She was transferred out of the ICU yesterday. She is awake and alert in no acute distress. Sitting up in bed. Maintaining good O2 saturations in the 90s on room air. She remains NPO. She remains with a night nasogastric tube in place. She is D5.45 normal saline at 125 MLS per hour. Wound culture was positive for E. coli. Abdominal dressing dry and intact. Ostomy present, nonfunctioning thus far. Blood sugar 133. She is continued on DuoNeb ventilations, Pulmicort and Perforomist inhalations. NicoDerm patch applied. Utilizing NicoDerm gum. Antibiotics in the form of cefepime and Flagyl. Heparin for DVT prophylaxis. Objective - Vital Signs Vital signs: Vital Signs Temp 97.8 F 12/11/23 07:35 Pulse 96 12/11/23 12:26 Resp 20 12/11/23 11:01 BP 165/77 12/11/23 11:01 Pulse Ox 95 12/11/23 11:01 FiO2 30 12/09/23 10:00 Intake & Output 12/10/23 12/11/23 12/11/23 18:59 06:59 18:59 Output Total 7073 7250 1475 Balance -7029 -2579 -1479 Weight 35.5 kg Output: Gastric Drainage 100 Urine 1350 2350 1475 Other: Voiding Method Indwelling Catheter Indwelling Catheter ABP, PAP, CO, CI - Last Documented Arterial Blood Pressure 119/92 - Exam GENERAL EXAM: Awake, sitting up in bed, 78-year-old female, on room air, in no apparent distress. HEAD: Normocephalic. EYES: Sluggish reaction of pupils, equal size. NOSE: Clear with pink turbinates. THROAT: Nasogastric tube secured in place. No erythema or exudates. NECK: No masses, no JVD. CHEST: No chest wall deformity. LUNGS: Equal air entry with faint crackles in the posterior bases. CVS: S1 and S2 normal with no audible murmur, regular rhythm. ABDOMEN: Abdominal dressing dry and intact. Left abdominal ostomy present. SPINE: No scoliosis or deformity SKIN: No rashes CENTRAL NERVOUS SYSTEM: Sedated, tone is normal in all 4 extremities. EXTREMITIES: Right radial arterial line in place there is no peripheral edema. No clubbing, no cyanosis. Peripheral pulses are intact. - Labs CBC & Chem 7: 12/10/23 04:22 12/10/23 04:22 Labs: Abnormal Lab Results - Last 24 Hours (Table) 12/10/23 12/11/23 Range/Units 23:53 12:15 POC Glucose (mg/dL) 129 H 133 H (70-110) mg/dL Microbiology - Last 24 Hours (Table) 12/08/23 09:40 Gram Stain - Preliminary Other - Other Wound Culture - Preliminary Escherichia coli Assessment and Plan Assessment: Severe acute abdominal pain secondary to perforated sigmoid diverticulitis. Status post exploratory laparotomy, sigmoid colectomy, end colostomy. Postoperative day #3 Acute hypoxemic respiratory failure secondary to above requiring prolonged ventilation postoperatively recovered and on room air Severe protein calorie malnutrition with a BMI of less than 20 kg/m History of gastric ulcers and esophagitis History of rheumatoid arthritis History of chronic obstructive pulmonary disease History of chronic tobacco dependence History of hypertension History of hyperlipidemia History of gastroesophageal reflux disease Plan: The patient was seen and evaluated Labs and medications reviewed Continue Flagyl and cefepime Continue bronchodilators Titrate the FiO2 as tolerated Encouraged the increased use of the incentive spirometer Increase her activity as tolerated We will continue to follow I have personally seen and examined the patient, performed the documentation and the assessment and plan as written. Number of minutes spent on the visit: 10.
[2023-12-11] MEDS: HYDROmorphone 0.5 MG/0.5 ML SYRINGE IVP PRN (14:35)
--- NOTE | 2023-12-11 14:44 | P.PN ---
Progress Note - Text Progress Note Date: 12/11/23 - Chief Complaint Abdominal pain - History of Present Illness This is a pleasant 78-year-old patient, chronic stable medical conditions include COPD, hypertension, rheumatoid arthritis. Patient is active smoker. Patient with 3 days been having increasing abdominal pain. Presented to the ER. CT scan showed free air. Patient was taken to the OR yesterday by Dr. Lentz. Underwent exploratory laparotomy. Found to have a perforated sigmoid d iverticulitis. Sigmoid colectomy with end colostomy was done. Today in the ICU: Extubated earlier today. 2 L nasal cannula. Has NG tube to suction. No output in the colostomy bag. Son at the bedside. Pain at the surgical site. December 10: Patient moved out of the ICU. NG tube to intermittent suction. Did not sleep well yesterday. States when she tries to close her eyes she starts hallucinating. Given one-time dose of Haldol. Having significant pain at the operative site. Pain medications per surgical team. No output through colostomy bag. Discussed with nurse. Sons at the bedside. Also added Nicorette gum as needed. Hypoglycemia: Change IV fluids to D5.45. Patient on IV cefepime and IV Flagyl. December 11: NG tube in place. Plan for it to be discontinued this afternoon. Very little output from the colostomy bag. Did sleep her last night.'s some hallucinations. Discussed with the patient's son. Try to cut back on IV narcotics balance between pain control and side effects. Active Medications Albuterol Sulfate (Albuterol Nebulized 2.5 Mg/3 Ml) 2.5 mg INHALATION RT-Q4H PRN PRN Reason: Shortness Of Breath Albuterol/Ipratropium (Ipratropium-Albuterol 3 Ml Neb) 3 ml INHALATION RT-Q2H PRN PRN Reason: Shortness Of Breath Or Wheezing Albuterol/Ipratropium (Ipratropium-Albuterol 3 Ml Neb) 3 ml INHALATION RT-QID ANN Last Admin: 12/11/23 12:14 Dose: 3 ml Atorvastatin Calcium (Atorvastatin 20 Mg Tab) 20 mg PO DAILY [facility] Last Admin: 12/11/23 07:43 Dose: 20 mg Benzocaine (Benzocaine [place] 1 Can) 1 spray MUCOUS MEM QID PRN; Protocol PRN Reason: Mouth Irritation Last Admin: 12/10/23 00:20 Dose: 1 spray Benzocaine/Menthol (Benzocaine/Menthol Lozeng 1 Each Lozenge) 1 each MUCOUS MEM Q4HR PRN PRN Reason: Sore Throat Budesonide (Budesonide 1 Mg/2 Ml Nebu) 1 mg INHALATION RT-BID ANN Last Admin: 12/11/23 08:35 Dose: 1 mg Dextrose/Water (Dextrose 50% Syringe 50 Ml) 25 ml IVP PER PROTOCOL PRN; Protocol PRN Reason: Hypoglycemia Last Admin: 12/10/23 05:16 Dose: 25 ml Dextrose/Water (Dextrose 50% Syringe 50 Ml) 50 ml IVP PER PROTOCOL PRN; Protocol PRN Reason: Hypoglycemia Formoterol Fumarate (Formoterol Fumarate 20 Mcg/2 Ml Nebu) 20 mcg INHALATION RT-BID ANN Last Admin: 12/11/23 08:49 Dose: 20 mcg Heparin Sodium (Porcine) (Heparin Sodium,Porcine 5,000 Unit/Ml 1 Ml Vial) 5,000 unit SQ Q8HR ANN Last Admin: 12/11/23 07:43 Dose: 5,000 unit Hydromorphone HCl (Hydromorphone 0.5 Mg/0.5 Ml Syringe) 0.5 mg IVP Q4HR PRN PRN Reason: Pain Last Admin: 12/11/23 14:35 Dose: 0.5 mg Hydroxychloroquine Sulfate (Hydroxychloroquine Sulfate 200 Mg Tab) 200 mg PO BID ANN Last Admin: 12/11/23 07:43 Dose: 200 mg Metronidazole 500 mg/ IV (Solution) 100 mls @ 100 mls/hr IVPB Q8H ANN; Protocol Last Admin: 12/11/23 13:10 Dose: 100 mls/hr Cefepime HCl 2 gm/ Sodium (Chloride) 100 mls @ 25 mls/hr IVPB Q12H ANN; Protocol Last Admin: 12/11/23 04:49 Dose: 25 mls/hr Dextrose/Sodium Chloride (Dextrose 5%-1/2ns Iv Soln) 1,000 mls @ 125 mls/hr IV .Q8H ANN Last Admin: 12/11/23 14:37 Dose: 125 mls/hr Metoprolol Tartrate (Metoprolol Tartrate 5 Mg/5 Ml Vial) 5 mg IVP Q6HR PRN PRN Reason: Blood Pressure - High Miscellaneous Information (Magnesium Replacement Protocol 1 Each Misc) 1 each MISCELLANE DAILY PRN; Protocol PRN Reason: Per Protocol Miscellaneous Information (Potassium Replacement Protocol 1 Each Misc) 1 each MISCELLANE DAILY PRN; Protocol PRN Reason: Per Protocol Montelukast Sodium (Montelukast 10 Mg Tab) 10 mg PO DAILY [facility] Last Admin: 12/11/23 07:43 Dose: 10 mg Naloxone HCl (Naloxone 0.4 Mg/Ml 1 Ml Vial) 0.2 mg IV Q2M PRN PRN Reason: Opioid Reversal Nicotine (Nicotine 21mg/24hr Patch) 1 patch TRANSDERM DAILY [facility] Last Admin: 12/11/23 07:43 Dose: 1 patch Nicotine Polacrilex (Nicotine Gum (Polacrilex) 2 Mg Gum) 2 mg BUCCAL Q4HR PRN PRN Reason: Nicotine Cravings Pantoprazole Sodium (Pantoprazole 40 Mg/10 Ml Vial) 40 mg IV DAILY [facility] Last Admin: 12/11/23 07:43 Dose: 40 mg Temazepam (Temazepam 15 Mg Cap) 15 mg PO HS PRN PRN Reason: Insomnia Last Admin: 12/10/23 21:14 Dose: 15 mg Social history: Patient been smoking for many years. Was up to 4 packs a day. Now down to a pack a day. Works at [employer]. Lives with her son. Physical examination: VITAL SIGNS: 97.8, 93, 20, 165 x 77, 95% room air GENERAL: Reclining in bed, tired EYES: Pupils equal. Conjunctiva micheal l. HEENT: External appearance of nose and ears normal, oral cavity grossly normal. Diminished hearing in the right ear. NG tube to suction NECK: JVD not raised; masses not palpable. HEART: First and second heart sounds are normal; no edema. LUNGS:[ Respiratory rate increased, diminished breath sounds. ABDOMEN: Soft, tender, no guarding rigidity, liver spleen not palpable, no masses palpable. Left-sided colostomy bag-no output. PSYCH: [Alert and oriented x3; mood and affect anxious. MUSCULOSKELETAL:No Clubbing/cyanosis;muscles-grossly intact INVESTIGATIONS, reviewed in the clinical context: December 10: White count 13.8 hemoglobin 10.8 platelets 255 potassium 3.8 creatinine 0.8 glucose 43 December 09: White count 10.8 hemoglobin 10.9 platelets 254 sodium 135 potassium 3.8 BUN 20 creatinine 0.61 Chest x-ray film personally reviewed by me-hyperinflation Telemetry strip bedside monitor: Personally reviewed by me. Sinus rhythm CT scan abdomen pelvis: Moderate prominence of the stomach. Severe wall thickening of the gastric antrum. Distal colonic diverticulosis. Free air identified anterior to the bladder. Assessment and plan: -Acute sigmoid diverticulitis with perforation. Patient underwent sigmoid resection and formation of her colostomy on December [address] Lentz. NPO. NG tube to suction-plan for discontinuation this afternoon. IV cefepime and IV Flagyl. -Postop surgical site pain. Pain medications per surgical team -Possible secondary peritonitis from perforation IV cefepime and IV Flagyl. ID following -COPD and a current smoker DuoNeb 3 times daily. Singulair.. Breztri inhaler -Chronic nicotine dependence, cigarette smoker Nicotine patch -Hyperlipidemia Lipitor 20 mg a day -Severe protein calorie malnutrition. BMI 18.3. Consult dietitian -Chronic muscle spasm Baclofen as needed -Peptic ulcer disease PPI -Hypoglycemia from poor oral intake: D5.45 at 125 cc an hour. -Essential hypertension Lopressor 25 mg twice daily -Insomnia with hallucinations. Restoril. Cut back Dilaudid. NG tube to be discontinued this afternoon. Discussed with patient's son at the bedside. Thank you Dr. Lentz Past Medical History Past Medical History: COPD, Hypertension, Rheumatoid Arthritis (RA) Additional Past Medical History / Comment(s): bleeding ulcer History of Any Multi-Drug Resistant Organisms: None Reported Past Surgical History: Tubal Ligation Additional Past Surgical History / Comment(s): Eye surgery (cataracts removed). Past Anesthesia/Blood Transfusion Reactions: No Reported Reaction Past Psychological History: No Psychological Hx Reported Smoking Status: Current every day smoker Past Alcohol Use History: Rare Past Drug Use History: None Reported
--- NOTE | 2023-12-11 15:55 | P.PN ---
Subjective Progress Note Date: 12/11/23 Principal diagnosis: Reason for follow-up is perforated diverticulitis and abscess Patient is a 78-year-old female with a past medical history significant for COPD hypertension rheumatoid arthritis presenting to the ER for evaluation of epigastric abdominal pain, patient did have a CT abdominal pelvis concerning for free subsequently taken to the OR status post laparotomy with evidence of perforated sigmoid diverticulitis status post sigmoid colectomy and end colostomy. On today's evaluation that is 12/11/2023, the patient remains to be afebrile, patient is breathing comfortably on room air and no need for supplemental oxygen, the patient denies chest pain shortness of breath or cough, patient NG has been discontinued feeling better no nausea vomiting abdominal pain has decreased in intensity no output in colostomy. No new labs were done today abdominal culture with an E. coli that is sensitive pathogen Objective - Vital Signs Vital signs: Vital Signs Temp 98.1 F 12/11/23 15:01 Pulse 93 12/11/23 15:01 Resp 20 12/11/23 15:01 BP 185/81 12/11/23 15:01 Pulse Ox 95 12/11/23 15:01 FiO2 30 12/09/23 10:00 Intake & Output 12/10/23 12/11/23 12/11/23 18:59 06:59 18:59 Output Total 1450 2350 1475 Balance -1450 -2350 -1475 Weight 35.5 kg Output: Gastric Drainage 100 Urine 1350 2350 1475 Other: Voiding Method Indwelling Catheter Indwelling Catheter ABP, PAP, CO, CI - Last Documented Arterial Blood Pressure 119/92 - Exam GENERAL DESCRIPTION: An elderly female lying in bed in no distress RESPIRATORY SYSTEM: Unlabored breathing , decreased breath sounds at bases HEART: S1 S2 regular rate and rhythm , ABDOMEN: Soft , mild tenderness EXTREMITIES: No edema feet - Labs CBC & Chem 7: 12/10/23 04:22 12/10/23 04:22 Labs: Abnormal Lab Results - Last 24 Hours (Table) 12/10/23 12/11/23 Range/Units 23:53 12:15 POC Glucose (mg/dL) 129 H 133 H (70-110) mg/dL Microbiology - Last 24 Hours (Table) 12/08/23 09:40 Gram Stain - Preliminary Other - Other Wound Culture - Preliminary Escherichia coli Assessment and Plan (1) Intra-abdominal abscess Current Visit: Yes Status: Acute Code(s): K65.1 - PERITONEAL ABSCESS SNOMED Code(s): 39667933 (2) Allergy to multiple antibiotics Current Visit: Yes Status: Acute Code(s): Z88.1 - ALLERGY STATUS TO OTHER ANTIBIOTIC AGENTS SNOMED Code(s): 469204700 (3) Perforated viscus Current Visit: Yes Status: Acute Code(s): R19.8 - OTH SYMPTOMS AND SIGNS INVOLVING THE DGSTV SYS AND ABDOMEN SNOMED Code(s): 909134932 Plan: 1patient presented to hospital with abdominal pain has been diagnosed with a perforated viscus in this patient was status post laparotomy with evidence of perforated sigmoid diverticulitis status post laparotomy sigmoid colectomy and end colostomy for likely organism need to cover will be enteric gram-negative both aerobes and anaerobes 2-patient with multiple antibiotic ALLERGIES that would limit the number of antibiotic safe to use 3-patient is afebrile culture has been finalized with E. coli that is sensitive pathogen, patient to continue with cefepime 2 g every 8 and Flagyl while inpatient and monitor clinical course closely Dictation was produced using [employer] dictation software. please excuse any grammatical, word or spelling errors. Time with Patient: Less than 30
[2023-12-11 18:43] LABS: Glucose,Whole Blood 127 mg/dL (70-110)
[2023-12-12 02:48] LABS: Glucose,Whole Blood 141 mg/dL (70-110)
[2023-12-12 08:46] LABS: Basophils % (A) 0 %; Eosinophils # (A) 0.2 k/uL (0-0.7); Eosinophils % (A) 1 %; HCT 37.5 % (34.0-46.0); HGB 12.4 gm/dL (11.4-16.0); Lymphocytes # (A) 0.5 k/uL (1.0-4.8); Lymphocytes % (A) 4 %; MCH 32.3 pg (25.0-35.0); MCHC 33.1 g/dL (31.0-37.0); MCV 97.7 fL (80.0-100.0); Mean Platelet Volume 8.3; Monocytes # (A) 0.6 k/uL (0-1.0); Monocytes % (A) 5 %; Neutrophils # (A) 11.8 k/uL (1.3-7.7); Neutrophils % (A) 89 %; Platelet Count 287 k/uL (150-450); RBC 3.84 m/uL (3.80-5.40); RDW 12.3 % (11.5-15.5); WBC 13.2 k/uL (3.8-10.6)
[2023-12-12 09:00] LABS: African American GFR (CKD) >90 (>60 ml/min/1.73 sqM); Anion Gap 5 mmol/L; Blood Urea Nitrogen 6 mg/dL (7-17); Calcium 7.2 mg/dL (8.4-10.2); Carbon Dioxide 27 mmol/L (22-30); Chloride 100 mmol/L (98-107); Glucose 114 mg/dL (74-99); Non-African American GFR(CKD) >90 (>60 ml/min/1.73 sqM); Sodium 132 mmol/L (137-145)
[2023-12-12 09:15] LABS: Potassium 2.9 mmol/L (3.5-5.1)
[2023-12-12] MEDS: METOPROLOL TARTRATE 5 MG/5 ML VIAL IVP PRN (09:52)
[2023-12-12] MEDS: POTASSIUM CHLORIDE ER 20 MEQ TAB.ER PO SCH (12:34)
--- NOTE | 2023-12-12 14:06 | P.PN ---
Subjective Progress Note Date: 12/12/23 CHIEF COMPLAINT: Perforated sigmoid diverticulitis HISTORY OF PRESENT ILLNESS: Patient is postop day #4 status post exploratory laparotomy, sigmoid colectomy and end colostomy. Patient is on regular medical floor. She does complain of right-sided abdominal pain she has had no output from her ostomy. NG tube removed yesterday. Remains NPO. Afebrile. WBC the same at 13.2 Hgb 12.4 potassium is 2.9 and being replaced PHYSICAL EXAM: VITAL SIGNS: Reviewed. GENERAL: Well-developed in no acute distress. ABDOMEN: Soft. Nondistended. Tenderness palpation the right side abdomen. Incision site clean dry and intact. James in place. Ostomy with pink stoma. tiny hard piece of stool at stoma. NEUROLOGIC: Alert and oriented. Cranial nerves II through XII grossly intact. ASSESSMENT: 1. Perforated sigmoid diverticulitis PLAN: -Keep patient n.p.o. -Continue pain management. Add Toradol for pain control -Continue antibiotics -Encourage patient increase activity level -Encourage patient to use incentive spirometer -Continue IV fluids -Potassium being replaced for hypokalemia -GI prophylaxis Protonix DVT prophylaxis subcu heparin Physician Store Consultant note has been reviewed by physician. Signing provider agrees with the documented findings, assessment, and plan of care. I have personally seen and examined the patient, reviewed the [employer]ESS[employer] /PAs history, exam and MDM and agree with the assessment and plan as written. Based on total visit time, I have performed more than 50% of the visit. As above: Patient apparently started having some right lateral pain just above the ASIS yesterday. Increased somewhat overnight. With analgesics pain goes down to a 2 however it was a 10 earlier this morning. On exam mild tenderness there. Incision is otherwise clean with packing in place, ostomy pink with minimal output. Continue n.p.o. for now given the discomfort. Increase activity as tolerated. Continue antibiotics. Continue Aquacel packing. Objective - Vital Signs Vital signs: Vital Signs Temp 98.2 F 12/12/23 12:32 Pulse 86 12/12/23 12:32 Resp 16 12/12/23 12:32 BP 168/79 12/12/23 12:32 Pulse Ox 93 L 12/12/23 12:32 FiO2 30 12/09/23 10:00 Intake & Output 12/11/23 12/12/2324 18:59 06:59 18:59 Output Total 7393 164 1854 Balance -1352 -944 -9381 Weight 35.5 kg Output: Urine 8109 944 1850 Other: Voiding Method Indwelling Catheter Indwelling Catheter Indwelling Catheter ABP, PAP, CO, CI - Last Documented Arterial Blood Pressure 119/92 - Labs CBC & Chem 7: 12/12/23 07:05 12/12/23 07:05 Labs: Abnormal Lab Results - Last 24 Hours (Table) 12/11/23 12/12/23 12/12/23 Range/Units 18:41 02:47 07:05 WBC 13.2 H (3.8-10.6) k/uL Neutrophils # 11.8 H (1.3-7.7) k/uL Lymphocytes # 0.5 L (1.0-4.8) k/uL Sodium (137-145) mmol/L Potassium (3.5-5.1) mmol/L BUN (7-17) mg/dL Creatinine (0.52-1.04) mg/dL Glucose (74-99) mg/dL POC Glucose (mg/dL) 127 H 141 H (70-110) mg/dL Calcium (8.4-10.2) mg/dL 12/12/23 Range/Units 07:05 WBC (3.8-10.6) k/uL Neutrophils # (1.3-7.7) k/uL Lymphocytes # (1.0-4.8) k/uL Sodium 132 L (137-145) mmol/L Potassium 2.9 L (3.5-5.1) mmol/L BUN 6 L (7-17) mg/dL Creatinine 0.38 L (0.52-1.04) mg/dL Glucose 114 H (74-99) mg/dL POC Glucose (mg/dL) (70-110) mg/dL Calcium 7.2 L (8.4-10.2) mg/dL Microbiology - Last 24 Hours (Table) 12/08/23 09:40 Anaerobic Culture - Final Other - Other Anaerobic Gm Negative Bacilli Anaerobic Gm Negative Bacilli#2 12/08/23 09:40 Gram Stain - Preliminary Other - Other Wound Culture - Preliminary Escherichia coli Alpha Hemolytic Streptococcus
[2023-12-12] MEDS: KETOROLAC 15 MG/ML 1 ML VIAL IVP SCH (14:41)
--- NOTE | 2023-12-12 14:59 | P.PN ---
Subjective Progress Note Date: 12/12/23 This is a 78-year-old female patient with a history of rheumatoid arthritis, hypertension, hyperlipidemia, gastroesophageal reflux disease chronic obstructive pulmonary disease with chronic and ongoing tobacco dependence. She presented to the emergency room early this morning with complaints of severe e pigastric abdominal pain. She has a prior history of gastric ulcers and frequently has abdominal pain. ET scan of the abdomen revealed evidence of free air. Gastric or proximal duodenal ulcer perforation was suspected given severe gastric antral wall thickening. Chest x-ray revealed no acute pulmonary process. White count 8.8. Hemoglobin 12.5. Platelets 263. Sodium 138. Potassium 4.0. Bicarb 23. BUN 19. Creatinine 0.51. Glucose 102. Viral screen was negative. Lipase 11. Amylase less than 30. AST 56. ALT 48. She was taken to the operating room and had undergone a full oratory laparotomy, sigmoid colectomy and end colostomy for a perforated sigmoid diverticulitis. She remained intubated and on the mechanical ventilator and transferred to the intensive care unit. Current vent to later settings are assist-control mode at a rate of 14, tidal line 350, FiO2 100% and a PEEP of 5. She is sedated on propofol at 20 mcg/kg/min. She has lactated Ringer's at 125 MLS per hour. She is on antibiotics in the form of Levaquin and Flagyl. Abdominal dressing is dry and intact. There is a left colostomy in place. Right radial arterial line in place. She is somewhat hypertensive and initiated on Cleviprex infusion 1 mg/h. Dilaudid for pain control. The patient is seen today December 09, 2023 in follow-up in the intensive care unit. She remains intubated on mechanical ventilator. Current settings are assist-control mode at a rate of 20, tidal line 350, FiO2 30% and a PEEP of 5. Morning blood gases reveal a pO2 of 165, pCO2 39 and a pH of 7.43. These were on FiO2 40%. Sedated on propofol at 20 mics per kilogram per minute. Lactated Ringer's at 125 MLS per hour. She remains on bronchodilators. Antibiotics in the form of cefepime and Flagyl. Heparin for DVT prophylaxis. Chest x-ray reveals no significant change. Evidence of COPD. The patient is seen today December 10, 2023 in follow-up in the intensive care unit. She is awake and alert in no acute distress. She is maintaining good O2 saturations in the 90s on room air. She has lactated Ringer's at 125 MLS per hour. Nasogastric tube remains in place. He is continued on DuoNeb ventilations, Pulmicort and perform scintillations, Singulair. NicoDerm patch in place. She remains on heparin for DVT prophylaxis. Antibiotics in the form of cefepime and Flagyl. Wound culture positive for gram-negative bacilli. White count 13.8. Hemoglobin 10.8. Platelets 255. Sodium 133. Potassium 3.8. Bicarb 24. BUN 20. Creatinine 0.80. Glucose 201 after treatment for hypoglycemia. Currently NPO. Chest x-ray reveals patchy density in the right lower lobe and slight increase in small basilar effusions. The patient is seen today December 11, 2023 in follow-up on the selective care unit. She was transferred out of the ICU yesterday. She is awake and alert in no acute distress. Sitting up in bed. Maintaining good O2 saturations in the 90s on room air. She remains NPO. She remains with a night nasogastric tube in place. She is D5.45 normal saline at 125 MLS per hour. Wound culture was positive for E. coli. Abdominal dressing dry and intact. Ostomy present, nonfunctioning thus far. Blood sugar 133. She is continued on DuoNeb ventilations, Pulmicort and Perforomist inhalations. NicoDerm patch applied. Utilizing NicoDerm gum. Antibiotics in the form of cefepime and Flagyl. Heparin for DVT prophylaxis. On today's evaluation of On today's evaluation of 12/12/2023, the patient is being seen for a follow-up. The patient is still recovering from her surgery. The patient is currently on room air oxygen. Noted the patient remains NPO. Bowel sounds are quite hypoactive and nearly absent and there is no functionality in her colostomy bag. No significant output has been noted. The patient denies having any nausea or vomiting. Some vague abdominal discomfort in the right lower quadrant area. Otherwise, she has no other new complaints. The surgical scar is dry clean and intact. The patient remains on IV cefepime and Flagyl. The patient is afebrile. Hemodynamically stable. BUN is at 6 with a creatinine of 0.38 and a potassium level is at 2.9 that needs to be replaced and the sodium levels at 132. WBC count of 13.2 with a hemoglobin 12.4. Patient is using the incentive spirometer. She is ambulating. No altered mentation. No other significant issues otherwise. NG tube was removed yesterday. As for the intra-abdominal wounds, it is growing anaerobic gram-negative bacilli in addition to E. coli and Streptococcus. The patient is afebrile. Antibiotic coverage is adequate for now. The patient is known to have previous history of RA, hypertension, hyperlipidemia, COPD and previous history of smoking. The patient was diagnosed having a perforated sigmoid diverticulitis and the patient has undergone exploratory laparotomy, sigmoid colectomy and end colostomy. Objective - Vital Signs Vital signs: Vital Signs Temp 98.2 F 12/12/23 09:23 Pulse 96 12/12/23 09:23 Resp 22 12/12/23 09:23 BP 173/62 12/12/23 09:23 Pulse Ox 96 12/12/23 08:03 FiO2 30 12/09/23 10:00 Intake & Output 12/11/23 12/12/23 12/12/23 18:59 06:59 18:59 Output Total 3425 800 Balance -3425 -800 Output: Urine 3425 800 Other: Voiding Method Indwelling Catheter Indwelling Catheter Indwelling Catheter ABP, PAP, CO, CI - Last Documented Arterial Blood Pressure 119/92 - Exam GENERAL EXAM: Awake, sitting up in bed, 78-year-old female, on room air, in no apparent distress. The patient is currently on room air oxygen. HEAD: Normocephalic. EYES: Sluggish reaction of pupils, equal size. NOSE: Clear with pink turbinates. THROAT: Nasogastric tube secured in place. No erythema or exudates. NECK: No masses, no JVD. CHEST: No chest wall deformity. LUNGS: Equal air entry with faint crackles in the posterior bases. CVS: S1 and S2 normal with no audible murmur, regular rhythm. ABDOMEN: Abdominal dressing dry and intact. Left abdominal ostomy present. Bowel sounds are absent and the patient's colostomy bag has not accumulated any fluids. No output yet. SPINE: No scoliosis or deformity SKIN: No rashes CENTRAL NERVOUS SYSTEM: Sedated, tone is normal in all 4 extremities. EXTREMITIES: Right radial arterial line in place there is no peripheral edema. No clubbing, no cyanosis. Peripheral pulses are intact. - Labs CBC & Chem 7: 12/12/23 07:05 12/12/23 07:05 Labs: Abnormal Lab Results - Last 24 Hours (Table) 12/11/23 12/11/23 12/12/23 Range/Units 12:15 18:41 02:47 WBC (3.8-10.6) k/uL Neutrophils # (1.3-7.7) k/uL Lymphocytes # (1.0-4.8) k/uL Sodium (137-145) mmol/L Potassium (3.5-5.1) mmol/L BUN (7-17) mg/dL Creatinine (0.52-1.04) mg/dL Glucose (74-99) mg/dL POC Glucose (mg/dL) 133 H 127 H 141 H (70-110) mg/dL Calcium (8.4-10.2) mg/dL 12/12/23 12/12/23 Range/Units 07:05 07:05 WBC 13.2 H (3.8-10.6) k/uL Neutrophils # 11.8 H (1.3-7.7) k/uL Lymphocytes # 0.5 L (1.0-4.8) k/uL Sodium 132 L (137-145) mmol/L Potassium 2.9 L (3.5-5.1) mmol/L BUN 6 L (7-17) mg/dL Creatinine 0.38 L (0.52-1.04) mg/dL Glucose 114 H (74-99) mg/dL POC Glucose (mg/dL) (70-110) mg/dL Calcium 7.2 L (8.4-10.2) mg/dL Microbiology - Last 24 Hours (Table) 12/08/23 09:40 Anaerobic Culture - Final Other - Other Anaerobic Gm Negative Bacilli Anaerobic Gm Negative Bacilli#2 12/08/23 09:40 Gram Stain - Preliminary Other - Other Wound Culture - Preliminary Escherichia coli Alpha Hemolytic Streptococcus Assessment and Plan Plan: Severe acute abdominal pain secondary to perforated sigmoid diverticulitis. Status post exploratory laparotomy, sigmoid colectomy, end colostomy. Postoperative day #4. The patient remains NPO. NG tube has been removed. Bowel sounds are absent and no functionality in the colostomy bag. Intra- abdominal wounds have shown anaerobic gram-negative bacillus and E. coli and Streptococcus. Acute hypoxemic respiratory failure secondary to above requiring prolonged ventilation postoperatively recovered and on room air Severe protein calorie malnutrition with a BMI of less than 20 kg/m History of gastric ulcers and esophagitis History of rheumatoid arthritis History of chronic obstructive pulmonary disease History of chronic tobacco dependence History of hypertension History of hyperlipidemia History of gastroesophageal reflux disease Plan Continue using incentive spirometer Continue IV Flagyl and cefepime Monitor the bowel sounds and functionality of the colostomy Keep the patient n.p.o. for another 24 hours and consider TPN if there is no immediate functionality of the bowels Increase mobility and level of activity Continue with DuoNeb updrafts Continue Perforomist and Pulmicort nebulized treatments twice a day Patient has a nicotine patch Patient is seeing Eric for pain control and her pain is under adequate control for now Heparin subcu for DVT prophylaxis Will continue to follow
--- NOTE | 2023-12-12 15:38 | P.PN ---
Progress Note - Text Progress Note Date: 12/12/23 - Chief Complaint Abdominal pain - History of Present Illness This is a pleasant 78-year-old patient, chronic stable medical conditions include COPD, hypertension, rheumatoid arthritis. Patient is active smoker. Patient with 3 days been having increasing abdominal pain. Presented to the ER. CT scan showed free air. Patient was taken to the OR yesterday by Dr. Lentz. Underwent exploratory laparotomy. Found to have a perforated sigmoid d iverticulitis. Sigmoid colectomy with end colostomy was done. Today in the ICU: Extubated earlier today. 2 L nasal cannula. Has NG tube to suction. No output in the colostomy bag. Son at the bedside. Pain at the surgical site. December 10: Patient moved out of the ICU. NG tube to intermittent suction. Did not sleep well yesterday. States when she tries to close her eyes she starts hallucinating. Given one-time dose of Haldol. Having significant pain at the operative site. Pain medications per surgical team. No output through colostomy bag. Discussed with nurse. Sons at the bedside. Also added Nicorette gum as needed. Hypoglycemia: Change IV fluids to D5.45. Patient on IV cefepime and IV Flagyl. December 11: NG tube in place. Plan for it to be discontinued this afternoon. Very little output from the colostomy bag. Did sleep her last night.'s some hallucinations. Discussed with the patient's son. Try to cut back on IV narcotics balance between pain control and side effects. December 12: NG tube was discontinued yesterday. Remains NPO per surgery. No output from the colostomy bag. Did not sleep well last night. Chewing gum ordered. Remains on IV cefepime. IV Flagyl. For blood pressure start Catapres patch 0.2. Active Medications Albuterol Sulfate (Albuterol Nebulized 2.5 Mg/3 Ml) 2.5 mg INHALATION RT-Q4H PRN PRN Reason: Shortness Of Breath Albuterol/Ipratropium (Ipratropium-Albuterol 3 Ml Neb) 3 ml INHALATION RT-Q2H PRN PRN Reason: Shortness Of Breath Or Wheezing Albuterol/Ipratropium (Ipratropium-Albuterol 3 Ml Neb) 3 ml INHALATION RT-QID ANN Last Admin: 12/12/23 15:18 Dose: 3 ml Atorvastatin Calcium (Atorvastatin 20 Mg Tab) 20 mg PO DAILY [facility] Last Admin: 12/12/23 09:32 Dose: 20 mg Benzocaine (Benzocaine [place] 1 Can) 1 spray MUCOUS MEM QID PRN; Protocol PRN Reason: Mouth Irritation Last Admin: 12/10/23 00:20 Dose: 1 spray Benzocaine/Menthol (Benzocaine/Menthol Lozeng 1 Each Lozenge) 1 each MUCOUS MEM Q4HR PRN PRN Reason: Sore Throat Budesonide (Budesonide 1 Mg/2 Ml Nebu) 1 mg INHALATION RT-BID [facility] Last Admin: 12/12/23 08:03 Dose: 1 mg Dextrose/Water (Dextrose 50% Syringe 50 Ml) 25 ml IVP PER PROTOCOL PRN; Protocol PRN Reason: Hypoglycemia Last Admin: 12/10/23 05:16 Dose: 25 ml Dextrose/Water (Dextrose 50% Syringe 50 Ml) 50 ml IVP PER PROTOCOL PRN; Protocol PRN Reason: Hypoglycemia Formoterol Fumarate (Formoterol Fumarate 20 Mcg/2 Ml Nebu) 20 mcg INHALATION RT-BID [facility] Last Admin: 12/12/23 08:03 Dose: 20 mcg Heparin Sodium (Porcine) (Heparin Sodium,Porcine 5,000 Unit/Ml 1 Ml Vial) 5,000 unit SQ Q8HR ANN Last Admin: 12/12/23 09:32 Dose: 5,000 unit Hydromorphone HCl (Hydromorphone 0.5 Mg/0.5 Ml Syringe) 0.5 mg IVP Q4HR PRN PRN Reason: Pain Last Admin: 12/12/23 14:01 Dose: 0.5 mg Hydroxychloroquine Sulfate (Hydroxychloroquine Sulfate 200 Mg Tab) 200 mg PO BID [facility] Last Admin: 12/12/23 09:32 Dose: 200 mg Metronidazole 500 mg/ IV (Solution) 100 mls @ 100 mls/hr IVPB Q8H ANN; Protocol Last Admin: 12/12/23 12:34 Dose: 100 mls/hr Dextrose/Sodium Chloride (Dextrose 5%-1/2ns Iv Soln) 1,000 mls @ 125 mls/hr IV .Q8H ANN Last Admin: 12/12/23 14:49 Dose: 125 mls/hr Cefepime HCl 2 gm/ Sodium (Chloride) 100 mls @ 25 mls/hr IVPB Q8HR [facility]; Protocol Ketorolac Tromethamine (Ketorolac 15 Mg/Ml 1 Ml Vial) 15 mg IVP Q6HR [facility] Stop: 12/17/23 14:04 Last Admin: 12/12/23 14:41 Dose: 15 mg Metoprolol Tartrate (Metoprolol Tartrate 5 Mg/5 Ml Vial) 5 mg IVP Q6HR PRN PRN Reason: Blood Pressure - High Last Admin: 12/12/23 09:52 Dose: 5 mg Miscellaneous Information (Magnesium Replacement Protocol 1 Each Misc) 1 each MISCELLANE DAILY PRN; Protocol PRN Reason: Per Protocol Miscellaneous Information (Potassium Replacement Protocol 1 Each Misc) 1 each MISCELLANE DAILY PRN; Protocol PRN Reason: Per Protocol Montelukast Sodium (Montelukast 10 Mg Tab) 10 mg PO DAILY [facility] Last Admin: 12/12/23 09:32 Dose: 10 mg Naloxone HCl (Naloxone 0.4 Mg/Ml 1 Ml Vial) 0.2 mg IV Q2M PRN PRN Reason: Opioid Reversal Nicotine (Nicotine 21mg/24hr Patch) 1 patch TRANSDERM DAILY [facility] Last Admin: 12/12/23 09:32 Dose: 1 patch Nicotine Polacrilex (Nicotine Gum (Polacrilex) 2 Mg Gum) 2 mg BUCCAL Q4HR PRN PRN Reason: Nicotine Cravings Pantoprazole Sodium (Pantoprazole 40 Mg/10 Ml Vial) 40 mg IV DAILY [facility] Last Admin: 12/12/23 09:32 Dose: 40 mg Temazepam (Temazepam 15 Mg Cap) 15 mg PO HS PRN PRN Reason: Insomnia Last Admin: 12/11/23 20:34 Dose: 15 mg Social history: Patient been smoking for many years. Was up to 4 packs a day. Now down to a pack a day. Works at [employer]. Lives with her son. Physical examination: VITAL SIGNS: 98.2, 86, 16, 168 x 79, 93% room air GENERAL: Reclining in bed, tired EYES: Pupils equal. Conjunctiva micheal l. HEENT: External appearance of nose and ears normal, oral cavity grossly normal. Diminished hearing in the right ear. NG tube discontinued NECK: JVD not raised; masses not palpable. HEART: First and second heart sounds are normal; no edema. LUNGS:[ Respiratory rate increased, diminished breath sounds. ABDOMEN: Soft, tender, no guarding rigidity, liver spleen not palpable, no masses palpable. Left-sided colostomy bag-no output. PSYCH: [Alert and oriented x3; mood and affect anxious. MUSCULOSKELETAL:No Clubbing/cyanosis;muscles-grossly intact INVESTIGATIONS, reviewed in the clinical context: December 12: White count 13.2 hemoglobin 12.4 potassium 2.9 creatinine 0.38 December 10: White count 13.8 hemoglobin 10.8 platelets 255 potassium 3.8 creatinine 0.8 glucose 43 December 09: White count 10.8 hemoglobin 10.9 platelets 254 sodium 135 potassium 3.8 BUN 20 creatinine 0.61 Chest x-ray film personally reviewed by me-hyperinflation Telemetry strip bedside monitor: Personally reviewed by me. Sinus rhythm CT scan abdomen pelvis: Moderate prominence of the stomach. Severe wall thickening of the gastric antrum. Distal colonic diverticulosis. Free air identified anterior to the bladder. Assessment and plan: -Acute sigmoid diverticulitis with perforation. Patient underwent sigmoid resection and formation of her colostomy on December [address] Lentz. NPO. NG tube discontinued IV cefepime and IV Flagyl. -Postop surgical site pain. Pain medications per surgical team -Severe hypokalemia: New diagnosis Replace potassium -Possible secondary peritonitis from hollow viscus perforation IV cefepime and IV Flagyl. ID following -COPD and a current smoker DuoNeb 3 times daily. Singulair.. Breztri inhaler -Chronic nicotine dependence, cigarette smoker Nicotine patch -Hyperlipidemia Lipitor 20 mg a day -Severe protein calorie malnutrition. BMI 18.3. Dietitian on the case -Chronic muscle spasm Baclofen as needed -Peptic ulcer disease PPI -Hypoglycemia from poor oral intake: D5.45 at 125 cc an hour. -Essential hypertension. Uncontrolled Lopressor cannot be taken by mouth. Add Catapres patch 0.2 -Insomnia with hallucinations. Restoril. Add Catapres patch. Remains NPO. Chewing gum ordered. Thank you Dr. Lentz Past Medical History Past Medical History: COPD, Hypertension, Rheumatoid Arthritis (RA) Additional Past Medical History / Comment(s): bleeding ulcer History of Any Multi-Drug Resistant Organisms: None Reported Past Surgical History: Tubal Ligation Additional Past Surgical History / Comment(s): Eye surgery (cataracts removed). Past Anesthesia/Blood Transfusion Reactions: No Reported Reaction Past Psychological History: No Psychological Hx Reported Smoking Status: Current every day smoker Past Alcohol Use History: Rare Past Drug Use History: None Reported
[2023-12-12 16:08] LABS: Glucose,Whole Blood 109 mg/dL (70-110)
[2023-12-12] MEDS: CEFEPIME 2 GM in SODIUM CHLORIDE 0.9% 100 ML IVPB SCH (16:14)
[2023-12-12] MEDS: cloNIDine 0.2 MG/24HR PATCH TRANSDERM SCH (17:17)
[2023-12-12 20:56] LABS: Glucose,Whole Blood 148 mg/dL (70-110)
[2023-12-13 02:07] LABS: Glucose,Whole Blood 122 mg/dL (70-110)
--- NOTE | 2023-12-13 08:00 | XR ---
EXAMINATION TYPE: XR abdomen 2V DATE OF EXAM: 12/13/2023 COMPARISON: 12/08/2023 HISTORY: Pain TECHNIQUE: One view abdominal series FINDINGS: The osseous structures are intact. The bowel gas pattern is nonspecific. Left lower lobe and tiny ef fusion.. Postsurgical changes noted. Arthropathy of the hips. Degenerative changes of the spine. IMPRESSION: 1. Nonspecific abdomen. 2. Left lower lobe infiltrate with tiny pleural effusion
[2023-12-13 09:25] LABS: Glucose,Whole Blood 106 mg/dL (70-110)
[2023-12-13 09:41] LABS: Basophils % (A) 0 %; Eosinophils # (A) 0.2 k/uL (0-0.7); Eosinophils % (A) 1 %; HCT 36.1 % (34.0-46.0); HGB 11.9 gm/dL (11.4-16.0); Lymphocytes # (A) 0.7 k/uL (1.0-4.8); Lymphocytes % (A) 5 %; MCH 31.9 pg (25.0-35.0); MCV 96.6 fL (80.0-100.0); Mean Platelet Volume 7.8; Monocytes # (A) 0.8 k/uL (0-1.0); Monocytes % (A) 5 %; Neutrophils % (A) 87 %; Platelet Count 294 k/uL (150-450); RBC 3.74 m/uL (3.80-5.40); RDW 12.3 % (11.5-15.5); WBC 13.8 k/uL (3.8-10.6)
[2023-12-13 10:08] LABS: African American GFR (CKD) >90 (>60 ml/min/1.73 sqM); Anion Gap 3 mmol/L; Blood Urea Nitrogen 7 mg/dL (7-17); Calcium 7.3 mg/dL (8.4-10.2); Carbon Dioxide 29 mmol/L (22-30); Chloride 103 mmol/L (98-107); Glucose 111 mg/dL (74-99); Non-African American GFR(CKD) >90 (>60 ml/min/1.73 sqM); Potassium 2.9 mmol/L (3.5-5.1); Sodium 135 mmol/L (137-145)
--- NOTE | 2023-12-13 11:20 | P.PN ---
Subjective Progress Note Date: 12/13/23 This is a 78-year-old female patient with a history of rheumatoid arthritis, hypertension, hyperlipidemia, gastroesophageal reflux disease chronic obstructive pulmonary disease with chronic and ongoing tobacco dependence. She presented to the emergency room early this morning with complaints of severe e pigastric abdominal pain. She has a prior history of gastric ulcers and frequently has abdominal pain. ET scan of the abdomen revealed evidence of free air. Gastric or proximal duodenal ulcer perforation was suspected given severe gastric antral wall thickening. Chest x-ray revealed no acute pulmonary process. White count 8.8. Hemoglobin 12.5. Platelets 263. Sodium 138. Potassium 4.0. Bicarb 23. BUN 19. Creatinine 0.51. Glucose 102. Viral screen was negative. Lipase 11. Amylase less than 30. AST 56. ALT 48. She was taken to the operating room and had undergone a full oratory laparotomy, sigmoid colectomy and end colostomy for a perforated sigmoid diverticulitis. She remained intubated and on the mechanical ventilator and transferred to the intensive care unit. Current vent to later settings are assist-control mode at a rate of 14, tidal line 350, FiO2 100% and a PEEP of 5. She is sedated on propofol at 20 mcg/kg/min. She has lactated Ringer's at 125 MLS per hour. She is on antibiotics in the form of Levaquin and Flagyl. Abdominal dressing is dry and intact. There is a left colostomy in place. Right radial arterial line in place. She is somewhat hypertensive and initiated on Cleviprex infusion 1 mg/h. Dilaudid for pain control. The patient is seen today December 09, 2023 in follow-up in the intensive care unit. She remains intubated on mechanical ventilator. Current settings are assist-control mode at a rate of 20, tidal line 350, FiO2 30% and a PEEP of 5. Morning blood gases reveal a pO2 of 165, pCO2 39 and a pH of 7.43. These were on FiO2 40%. Sedated on propofol at 20 mics per kilogram per minute. Lactated Ringer's at 125 MLS per hour. She remains on bronchodilators. Antibiotics in the form of cefepime and Flagyl. Heparin for DVT prophylaxis. Chest x-ray reveals no significant change. Evidence of COPD. The patient is seen today December 10, 2023 in follow-up in the intensive care unit. She is awake and alert in no acute distress. She is maintaining good O2 saturations in the 90s on room air. She has lactated Ringer's at 125 MLS per hour. Nasogastric tube remains in place. He is continued on DuoNeb ventilations, Pulmicort and perform scintillations, Singulair. NicoDerm patch in place. She remains on heparin for DVT prophylaxis. Antibiotics in the form of cefepime and Flagyl. Wound culture positive for gram-negative bacilli. White count 13.8. Hemoglobin 10.8. Platelets 255. Sodium 133. Potassium 3.8. Bicarb 24. BUN 20. Creatinine 0.80. Glucose 201 after treatment for hypoglycemia. Currently NPO. Chest x-ray reveals patchy density in the right lower lobe and slight increase in small basilar effusions. The patient is seen today December 11, 2023 in follow-up on the selective care unit. She was transferred out of the ICU yesterday. She is awake and alert in no acute distress. Sitting up in bed. Maintaining good O2 saturations in the 90s on room air. She remains NPO. She remains with a night nasogastric tube in place. She is D5.45 normal saline at 125 MLS per hour. Wound culture was positive for E. coli. Abdominal dressing dry and intact. Ostomy present, nonfunctioning thus far. Blood sugar 133. She is continued on DuoNeb ventilations, Pulmicort and Perforomist inhalations. NicoDerm patch applied. Utilizing NicoDerm gum. Antibiotics in the form of cefepime and Flagyl. Heparin for DVT prophylaxis. On today's evaluation of On today's evaluation of 12/12/2023, the patient is being seen for a follow-up. The patient is still recovering from her surgery. The patient is currently on room air oxygen. Noted the patient remains NPO. Bowel sounds are quite hypoactive and nearly absent and there is no functionality in her colostomy bag. No significant output has been noted. The patient denies having any nausea or vomiting. Some vague abdominal discomfort in the right lower quadrant area. Otherwise, she has no other new complaints. The surgical scar is dry clean and intact. The patient remains on IV cefepime and Flagyl. The patient is afebrile. Hemodynamically stable. BUN is at 6 with a creatinine of 0.38 and a potassium level is at 2.9 that needs to be replaced and the sodium levels at 132. WBC count of 13.2 with a hemoglobin 12.4. Patient is using the incentive spirometer. She is ambulating. No altered mentation. No other significant issues otherwise. NG tube was removed yesterday. As for the intra-abdominal wounds, it is growing anaerobic gram-negative bacilli in addition to E. coli and Streptococcus. The patient is afebrile. Antibiotic coverage is adequate for now. The patient is known to have previous history of RA, hypertension, hyperlipidemia, COPD and previous history of smoking. The patient was diagnosed having a perforated sigmoid diverticulitis and the patient has undergone exploratory laparotomy, sigmoid colectomy and end colostomy. On 12/13/2023, the patient is on room air oxygen and the patient is calm and comfo rtable. No significant respite distress. Bowel sounds are hypoactive. Nevertheless, the patient was able to pass stool in the colostomy bag. She continues to have some limited abdominal tenderness.She remains hemodynamically stable with a white cell count of 15.8 and a hemoglobin of 11.9 and his sodium level is at 135 with a potassium level of 2.9 and a BUN of 7 with a creatinine of 0.46. The patient remains on Flagyl and cefepime as a broad-spectrum antibiotic coverage as the patient has shown some anaerobic growth and E. coli and Streptococcus alphahemolytic in the abdominal cultures. In terms of her morning abdominal x-ray, it showed some nonspecific findings and there was a tiny left-sided pleural effusion. Objective - Vital Signs Vital signs: Vital Signs Temp 97.6 F 12/13/23 04:00 Pulse 80 12/13/23 07:59 Resp 20 12/13/23 04:00 BP 156/78 12/13/23 04:00 Pulse Ox 100 12/13/23 04:00 FiO2 30 12/09/23 10:00 Intake & Output 12/12/23 12/13/23 12/13/23 18:59 06:59 18:59 Intake Total 10 Output Total 3200 776 Balance -3200 -766 Weight 35.5 kg Intake: IV 10 Invasive Line 2 10 Output: Urine 3200 775 Stool 1 Other: Voiding Method Indwelling Catheter Indwelling Catheter ABP, PAP, CO, CI - Last Documented Arterial Blood Pressure 119/92 - Exam GENERAL EXAM: Awake, sitting up in bed, 78-year-old female, on room air, in no apparent distress. The patient is currently on room air oxygen. HEAD: Normocephalic. EYES: Sluggish reaction of pupils, equal size. NOSE: Clear with pink turbinates. THROAT: Nasogastric tube secured in place. No erythema or exudates. NECK: No masses, no JVD. CHEST: No chest wall deformity. LUNGS: Equal air entry with faint crackles in the posterior bases. CVS: S1 and S2 normal with no audible murmur, regular rhythm. ABDOMEN: Abdominal dressing dry and intact. Left abdominal ostomy output is present. Bowel sounds are hypoactive SPINE: No scoliosis or deformity SKIN: No rashes CENTRAL NERVOUS SYSTEM: Sedated, tone is normal in all 4 extremities. EXTREMITIES: Right radial arterial line in place there is no peripheral edema. No clubbing, no cyanosis. Peripheral pulses are intact. - Labs CBC & Chem 7: 12/13/23 08:48 12/13/23 08:48 Labs: Abnormal Lab Results - Last 24 Hours (Table) 12/12/23 12/12/23 12/13/23 Range/Units 07:05 20:54 02:00 Sodium 132 L (137-145) mmol/L Potassium 2.9 L (3.5-5.1) mmol/L BUN 6 L (7-17) mg/dL Creatinine 0.38 L (0.52-1.04) mg/dL Glucose 114 H (74-99) mg/dL POC Glucose (mg/dL) 148 H 122 H (70-110) mg/dL Calcium 7.2 L (8.4-10.2) mg/dL Microbiology - Last 24 Hours (Table) 12/08/23 09:40 Gram Stain - Final Other - Other Wound Culture - Final Escherichia coli Alpha Hemolytic Streptococcus Assessment and Plan Plan: Severe acute abdominal pain secondary to perforated sigmoid diverticulitis. Status post exploratory laparotomy, sigmoid colectomy, end colostomy. Postoperative day #5. The patient remains NPO. There is output in the colostomy bag. Bowel sounds are hypoactive. Intra-abdominal wounds have shown anaerobic gram-negative bacillus and E. coli and Streptococcus, thrombolytic and the patient remains on a combination of cefepime and Flagyl.. Acute hypoxemic respiratory failure secondary to above requiring prolonged ventilation postoperatively recovered and on room air Severe protein calorie malnutrition with a BMI of less than 20 kg/m History of gastric ulcers and esophagitis History of rheumatoid arthritis History of chronic obstructive pulmonary disease History of chronic tobacco dependence History of hypertension History of hyperlipidemia History of gastroesophageal reflux disease Plan Continue using incentive spirometer Continue IV Flagyl and cefepime Monitor the bowel sounds and functionality of the colostomy, there is positive output on today's evaluation Feeding as per general surgery Increase mobility and level of activity Continue with DuoNeb updrafts Continue Perforomist and Pulmicort nebulized treatments twice a day Patient has a nicotine patch Patient is seeing Eric for pain control and her pain is under adequate control for now Heparin subcu for DVT prophylaxis Will continue to follow
--- NOTE | 2023-12-13 13:37 | P.PN ---
Progress Note - Text Progress Note Date: 12/13/23 - Chief Complaint Abdominal pain - History of Present Illness This is a pleasant 78-year-old patient, chronic stable medical conditions include COPD, hypertension, rheumatoid arthritis. Patient is active smoker. Patient with 3 days been having increasing abdominal pain. Presented to the ER. CT scan showed free air. Patient was taken to the OR yesterday by Dr. Lentz. Underwent exploratory laparotomy. Found to have a perforated sigmoid d iverticulitis. Sigmoid colectomy with end colostomy was done. Today in the ICU: Extubated earlier today. 2 L nasal cannula. Has NG tube to suction. No output in the colostomy bag. Son at the bedside. Pain at the surgical site. December 10: Patient moved out of the ICU. NG tube to intermittent suction. Did not sleep well yesterday. States when she tries to close her eyes she starts hallucinating. Given one-time dose of Haldol. Having significant pain at the operative site. Pain medications per surgical team. No output through colostomy bag. Discussed with nurse. Sons at the bedside. Also added Nicorette gum as needed. Hypoglycemia: Change IV fluids to D5.45. Patient on IV cefepime and IV Flagyl. December 11: NG tube in place. Plan for it to be discontinued this afternoon. Very little output from the colostomy bag. Did sleep her last night.'s some hallucinations. Discussed with the patient's son. Try to cut back on IV narcotics balance between pain control and side effects. December 12: NG tube was discontinued yesterday. Remains NPO per surgery. No output from the colostomy bag. Did not sleep well last night. Chewing gum ordered. Remains on IV cefepime. IV Flagyl. For blood pressure start Catapres patch 0.2. December 13: Patient be started on clear liquids by surgery. Some stool from the colostomy bag. Pain better. Pain switched over to oral pain medications. Abdominal wound cultures growing E. coli and alphahemolytic Streptococcus. Remains on IV cefepime and IV Flagyl. Abdominal pain better. Active Medications Hydrocodone Bitart/Acetaminophen (Hydrocodone/Apap 5-325mg 1 Each Tab) 1 each PO Q4HR PRN PRN Reason: Pain Albuterol Sulfate (Albuterol Nebulized 2.5 Mg/3 Ml) 2.5 mg INHALATION RT-Q4H PRN PRN Reason: Shortness Of Breath Albuterol/Ipratropium (Ipratropium-Albuterol 3 Ml Neb) 3 ml INHALATION RT-Q2H PRN PRN Reason: Shortness Of Breath Or Wheezing Albuterol/Ipratropium (Ipratropium-Albuterol 3 Ml Neb) 3 ml INHALATION RT-QID [facility] Last Admin: 12/13/23 11:30 Dose: 3 ml Atorvastatin Calcium (Atorvastatin 20 Mg Tab) 20 mg PO DAILY [facility] Last Admin: 12/13/23 09:58 Dose: 20 mg Benzocaine (Benzocaine [place] 1 Can) 1 spray MUCOUS MEM QID PRN; Protocol PRN Reason: Mouth Irritation Last Admin: 12/10/23 00:20 Dose: 1 spray Benzocaine/Menthol (Benzocaine/Menthol Lozeng 1 Each Lozenge) 1 each MUCOUS MEM Q4HR PRN PRN Reason: Sore Throat Budesonide (Budesonide 1 Mg/2 Ml Nebu) 1 mg INHALATION RT-BID [facility] Last Admin: 12/13/23 07:39 Dose: 1 mg Clonidine HCl (Clonidine 0.2 Mg/24hr Patch) 1 patch TRANSDERM Q7D [facility] Last Admin: 12/12/23 17:17 Dose: 1 patch Dextrose/Water (Dextrose 50% Syringe 50 Ml) 25 ml IVP PER PROTOCOL PRN; Protocol PRN Reason: Hypoglycemia Last Admin: 12/10/23 05:16 Dose: 25 ml Dextrose/Water (Dextrose 50% Syringe 50 Ml) 50 ml IVP PER PROTOCOL PRN; Protocol PRN Reason: Hypoglycemia Formoterol Fumarate (Formoterol Fumarate 20 Mcg/2 Ml Nebu) 20 mcg INHALATION RT-BID [facility] Last Admin: 12/13/23 07:39 Dose: 20 mcg Heparin Sodium (Porcine) (Heparin Sodium,Porcine 5,000 Unit/Ml 1 Ml Vial) 5,000 unit SQ Q8HR [facility] Last Admin: 12/13/23 09:58 Dose: 5,000 unit Hydromorphone HCl (Hydromorphone 0.5 Mg/0.5 Ml Syringe) 0.5 mg IVP Q4HR PRN PRN Reason: Pain Last Admin: 12/12/23 14:01 Dose: 0.5 mg Hydroxychloroquine Sulfate (Hydroxychloroquine Sulfate 200 Mg Tab) 200 mg PO BID [facility] Last Admin: 02/06/24 10:00 Dose: 200 mg Metronidazole 500 mg/ IV (Solution) 100 mls @ 100 mls/hr IVPB Q8H [facility]; Protocol Last Admin: 12/13/23 05:34 Dose: 100 mls/hr Dextrose/Sodium Chloride (Dextrose 5%-1/2ns Iv Soln) 1,000 mls @ 125 mls/hr IV .Q8H [facility] Last Admin: 12/13/23 09:59 Dose: 125 mls/hr Cefepime HCl 2 gm/ Sodium (Chloride) 100 mls @ 25 mls/hr IVPB Q8HR [facility]; Protocol Last Admin: 12/13/23 10:01 Dose: 25 mls/hr Ketorolac Tromethamine (Ketorolac 15 Mg/Ml 1 Ml Vial) 15 mg IVP Q6HR [facility] Stop: 12/17/23 14:04 Last Admin: 12/13/23 11:37 Dose: 15 mg Metoprolol Tartrate (Metoprolol Tartrate 5 Mg/5 Ml Vial) 5 mg IVP Q6HR PRN PRN Reason: Blood Pressure - High Last Admin: 12/12/23 09:52 Dose: 5 mg Miscellaneous Information (Magnesium Replacement Protocol 1 Each Misc) 1 each MISCELLANE DAILY PRN; Protocol PRN Reason: Per Protocol Miscellaneous Information (Potassium Replacement Protocol 1 Each Misc) 1 each MISCELLANE DAILY PRN; Protocol PRN Reason: Per Protocol Montelukast Sodium (Montelukast 10 Mg Tab) 10 mg PO DAILY [facility] Last Admin: 12/13/23 09:58 Dose: 10 mg Naloxone HCl (Naloxone 0.4 Mg/Ml 1 Ml Vial) 0.2 mg IV Q2M PRN PRN Reason: Opioid Reversal Nicotine (Nicotine 21mg/24hr Patch) 1 patch TRANSDERM DAILY [facility] Last Admin: 12/13/23 09:58 Dose: 1 patch Nicotine Polacrilex (Nicotine Gum (Polacrilex) 2 Mg Gum) 2 mg BUCCAL Q4HR PRN PRN Reason: Nicotine Cravings Pantoprazole Sodium (Pantoprazole 40 Mg/10 Ml Vial) 40 mg IV DAILY [facility] Last Admin: 12/13/23 09:58 Dose: 40 mg Temazepam (Temazepam 15 Mg Cap) 15 mg PO HS PRN PRN Reason: Insomnia Last Admin: 12/12/23 21:58 Dose: 15 mg Social history: Patient been smoking for many years. Was up to 4 packs a day. Now down to a pack a day. Works at [employer]. Lives with her son. Physical examination: VITAL SIGNS: 97.6, 81, 15, 141/72, 97% room air GENERAL: Reclining in bed, tired EYES: Pupils equal. Conjunctiva micheal l. HEENT: External appearance of nose and ears normal, oral cavity grossly normal. Diminished hearing in the right ear. NECK: JVD not raised; masses not palpable. HEART: First and second heart sounds are normal; no edema. LUNGS:[ Respiratory rate increased, diminished breath sounds. ABDOMEN: Soft, decreased tenderness r, no guarding rigidity, liver spleen not palpable, no masses palpable. Left-sided colostomy bag-some dark stool. PSYCH: [Alert and oriented x3; mood and affect anxious. MUSCULOSKELETAL:No Clubbing/cyanosis;muscles-grossly intact INVESTIGATIONS, reviewed in the clinical context: December 13: White count 13.8 hemoglobin 11.9 platelets 294 potassium 2.9 creatinine 0.46 Abdominal wound culture: E. coli and alphahemolytic Streptococcus. December 12: White count 13.2 hemoglobin 12.4 potassium 2.9 creatinine 0.38 December 10: White count 13.8 hemoglobin 10.8 platelets 255 potassium 3.8 creatinine 0.8 glucose 43 December 09: White count 10.8 hemoglobin 10.9 platelets 254 sodium 135 potassium 3.8 BUN 20 creatinine 0.61 Chest x-ray film personally reviewed by me-hyperinflation Telemetry strip bedside monitor: Personally reviewed by me. Sinus rhythm CT scan abdomen pelvis: Moderate prominence of the stomach. Severe wall thickening of the gastric antrum. Distal colonic diverticulosis. Free air identified anterior to the bladder. Assessment and plan: -Acute sigmoid diverticulitis with perforation. Cultures growing E. coli and alphahemolytic Streptococcus Patient underwent sigmoid resection and formation of her colostomy on December [address] Lentz. Being started on clear liquids. NG tube discontinued IV cefepime and IV Flagyl. -Postop surgical site pain.: Better IV Dilaudid being switched over to [place]. -Severe hypokalemia: Slow to respond Replace potassium -Possible secondary peritonitis from hollow viscus perforation IV cefepime and IV Flagyl. ID following -COPD and a current smoker DuoNeb 3 times daily. Singulair.. Breztri inhaler -Chronic nicotine dependence, cigarette smoker Nicotine patch -Hyperlipidemia Lipitor 20 mg a day -Severe protein calorie malnutrition. BMI 18.3. Dietitian on the case -Chronic muscle spasm Baclofen as needed -Peptic ulcer disease PPI -Hypoglycemia from poor oral intake: D5.45 at 125 cc an hour. -Essential hypertension. Uncontrolled Lopressor cannot be taken by mouth. Catapres patch 0.2 -Insomnia with hallucinations. Restoril. Doing better. Started on clear liquids. seat cover cutter to p.o. pain medications per surgery. Thank you Dr. Lentz Past Medical History Past Medical History: COPD, Hypertension, Rheumatoid Arthritis (RA) Additional Past Medical History / Comment(s): bleeding ulcer History of Any Multi-Drug Resistant Organisms: None Reported Past Surgical History: Tubal Ligation Additional Past Surgical History / Comment(s): Eye surgery (cataracts removed). Past Anesthesia/Blood Transfusion Reactions: No Reported Reaction Past Psychological History: No Psychological Hx Reported Smoking Status: Current every day smoker Past Alcohol Use History: Rare Past Drug Use History: None Reported
[2023-12-13] MEDS: POTASSIUM CHLORIDE ER 20 MEQ TAB.ER PO SCH (14:24)
--- NOTE | 2023-12-13 14:37 | P.PN ---
Subjective Progress Note Date: 12/12/23 Principal diagnosis: Reason for follow-up is perforated diverticulitis and abscess Patient is a 78-year-old female with a past medical history significant for COPD hypertension rheumatoid arthritis presenting to the ER for evaluation of epigastric abdominal pain, patient did have a CT abdominal pelvis concerning for free subsequently taken to the OR status post laparotomy with evidence of perforated sigmoid diverticulitis status post sigmoid colectomy and end colostomy. On today's evaluation that is 12/12/2023, the patient continues to be afebrile, patient is breathing comfortably on room air, the patient denies chest pain shortness of breath and no significant cough, patient denies nausea no vomiting abdominal pain has decreased in intensity did have some output in the colostomy. Patient did have white count of 13.2, creatinine 0.38 abdominal cultures with E. coli and Streptococcus along with anaerobes Objective - Vital Signs Vital signs: Vital Signs Temp 98.2 F 12/12/23 09:23 Pulse 80 12/12/23 11:12 Resp 16 12/12/23 11:12 BP 173/62 12/12/23 09:23 Pulse Ox 96 12/12/23 08:03 FiO2 30 12/09/23 10:00 Intake & Output 12/11/23 12/12/23 12/12/23 18:59 06:59 18:59 Output Total 3425 800 1850 Balance -3425 -800 -1850 Output: Urine 3425 800 1850 Other: Voiding Method Indwelling Catheter Indwelling Catheter Indwelling Catheter ABP, PAP, CO, CI - Last Documented Arterial Blood Pressure 119/92 - Exam GENERAL DESCRIPTION: An elderly female lying in bed in no distress RESPIRATORY SYSTEM: Unlabored breathing , decreased breath sounds at bases HEART: S1 S2 regular rate and rhythm , ABDOMEN: Soft , mild tenderness EXTREMITIES: No edema feet - Labs CBC & Chem 7: 12/13/23 08:48 12/13/23 08:48 Labs: Abnormal Lab Results - Last 24 Hours (Table) 12/11/23 12/12/23 12/12/23 Range/Units 18:41 02:47 07:05 WBC 13.2 H (3.8-10.6) k/uL Neutrophils # 11.8 H (1.3-7.7) k/uL Lymphocytes # 0.5 L (1.0-4.8) k/uL Sodium (137-145) mmol/L Potassium (3.5-5.1) mmol/L BUN (7-17) mg/dL Creatinine (0.52-1.04) mg/dL Glucose (74-99) mg/dL POC Glucose (mg/dL) 127 H 141 H (70-110) mg/dL Calcium (8.4-10.2) mg/dL 12/12/23 Range/Units 07:05 WBC (3.8-10.6) k/uL Neutrophils # (1.3-7.7) k/uL Lymphocytes # (1.0-4.8) k/uL Sodium 132 L (137-145) mmol/L Potassium 2.9 L (3.5-5.1) mmol/L BUN 6 L (7-17) mg/dL Creatinine 0.38 L (0.52-1.04) mg/dL Glucose 114 H (74-99) mg/dL POC Glucose (mg/dL) (70-110) mg/dL Calcium 7.2 L (8.4-10.2) mg/dL Microbiology - Last 24 Hours (Table) 12/08/23 09:40 Anaerobic Culture - Final Other - Other Anaerobic Gm Negative Bacilli Anaerobic Gm Negative Bacilli#2 12/08/23 09:40 Gram Stain - Preliminary Other - Other Wound Culture - Preliminary Escherichia coli Alpha Hemolytic Streptococcus Assessment and Plan (1) Intra-abdominal abscess Current Visit: Yes Status: Acute Code(s): K65.1 - PERITONEAL ABSCESS SNOMED Code(s): 09146629 (2) Allergy to multiple antibiotics Current Visit: Yes Status: Acute Code(s): Z88.1 - ALLERGY STATUS TO OTHER ANTIBIOTIC AGENTS SNOMED Code(s): 144426997 (3) Perforated viscus Current Visit: Yes Status: Acute Code(s): R19.8 - OTH SYMPTOMS AND SIGNS INV OLVING THE DGSTV SYS AND ABDOMEN SNOMED Code(s): 427413574 Plan: 1patient presented to hospital with abdominal pain has been diagnosed with a perforated viscus in this patient was status post laparotomy with evidence of perforated sigmoid diverticulitis status post laparotomy sigmoid colectomy and end colostomy for likely organism need to cover will be enteric gram-negative both aerobes and anaerobes 2-patient with multiple antibiotic ALLERGIES that would limit the number of antibiotic safe to use 3-patient is afebrile culture has been finalized with E. coli that is sensitive pathogen along with strep and anaerobes 4patient to continue with cefepime 2 g every 8 and Flagyl while inpatient and monitor clinical course closely Dictation was produced using [employer] dictation software. please excuse any grammatical, word or spelling errors. Time with Patient: Less than 30
--- NOTE | 2023-12-13 14:38 | P.PN ---
Subjective Progress Note Date: 12/13/23 Principal diagnosis: Reason for follow-up is perforated diverticulitis and abscess Patient is a 78-year-old female with a past medical history significant for COPD hypertension rheumatoid arthritis presenting to the ER for evaluation of epigastric abdominal pain, patient did have a CT abdominal pelvis concerning for free subsequently taken to the OR status post laparotomy with evidence of perforated sigmoid diverticulitis status post sigmoid colectomy and end colostomy. On today's evaluation that is 12/13/2023, the patient remains to be afebrile, patient is currently breathing comfortably on room air, the patient denies chest pain or cough, patient abdominal pain is controlled with the pain medication denies any nausea or vomiting has been complaining of not getting food. The patient white count is 13.8, creatinine 0.46 Objective - Vital Signs Vital signs: Vital Signs Temp 97.6 F 12/13/23 12:33 Pulse 81 12/13/23 12:33 Resp 15 12/13/23 12:33 BP 141/72 12/13/23 12:33 Pulse Ox 97 12/13/23 12:33 FiO2 30 12/09/23 10:00 Intake & Output 12/12/23 12/13/23 12/13/23 18:59 06:59 18:59 Intake Total 10 240 Output Total 3200 776 101 Balance -3200 -766 139 Weight 35.5 kg Intake: IV 10 Invasive Line 2 10 Oral 240 Output: Urine 3200 775 Stool 1 101 Other: Voiding Method Indwelling Catheter Indwelling Catheter Indwelling Catheter ABP, PAP, CO, CI - Last Documented Arterial Blood Pressure 119/92 - Exam GENERAL DESCRIPTION: An elderly female lying in bed in no distress RESPIRATORY SYSTEM: Unlabored breathing , decreased breath sounds at bases HEART: S1 S2 regular rate and rhythm , ABDOMEN: Soft , mild tenderness EXTREMITIES: No edema feet - Labs CBC & Chem 7: 12/13/23 08:48 12/13/23 08:48 Labs: Abnormal Lab Results - Last 24 Hours (Table) 12/12/23 12/13/23 12/13/23 Range/Units 20:54 02:00 08:48 WBC (3.8-10.6) k/uL RBC (3.80-5.40) m/uL Neutrophils # (1.3-7.7) k/uL Lymphocytes # (1.0-4.8) k/uL Sodium 135 L (137-145) mmol/L Potassium 2.9 L (3.5-5.1) mmol/L Creatinine 0.46 L (0.52-1.04) mg/dL Glucose 111 H (74-99) mg/dL POC Glucose (mg/dL) 148 H 122 H (70-110) mg/dL Calcium 7.3 L (8.4-10.2) mg/dL 12/13/23 Range/Units 08:48 WBC 13.8 H (3.8-10.6) k/uL RBC 3.74 L (3.80-5.40) m/uL Neutrophils # 12.0 H (1.3-7.7) k/uL Lymphocytes # 0.7 L (1.0-4.8) k/uL Sodium (137-145) mmol/L Potassium (3.5-5.1) mmol/L Creatinine (0.52-1.04) mg/dL Glucose (74-99) mg/dL POC Glucose (mg/dL) (70-110) mg/dL Calcium (8.4-10.2) mg/dL Microbiology - Last 24 Hours (Table) 12/08/23 09:40 Gram Stain - Final Other - Other Wound Culture - Final Escherichia coli Alpha Hemolytic Streptococcus Assessment and Plan (1) Intra-abdominal abscess Current Visit: Yes Status: Acute Code(s): K65.1 - PERITONEAL ABSCESS SNOMED Code(s): 33585187 (2) Allergy to multiple antibiotics Current Visit: Yes Status: Acute Code(s): Z88.1 - ALLERGY STATUS TO OTHER ANTIBIOTIC AGENTS SNOMED Code(s): 902127947 (3) Perforated viscus Current Visit: Yes Status: Acute Code(s): R19.8 - OTH SYMPTOMS AND SIGNS INVOLVING THE DGSTV SYS AND ABDOMEN SNOMED Code(s): 750115109 Plan: 1patient presented to hospital with abdominal pain has been diagnosed with a perforated viscus in this patient was status post laparotomy with evidence of perforated sigmoid diverticulitis status post laparotomy sigmoid colectomy and end colostomy for likely organism need to cover will be enteric gram-negative both aerobes and anaerobes 2-patient with multiple antibiotic ALLERGIES that would limit the number of antibiotic safe to use 3-patient is afebrile culture has been finalized with E. coli that is sensitive pathogen along with strep and anaerobes 4patient did have slightly elevated white count slightly concerning however the patient cefepime dose has been adjusted back to every 8 hours to continue along with the Flagyl and will repeat a CBC CRP with a.m. lab Dictation was produced using [employer] dictation software. please excuse any grammatical, word or spelling errors. Time with Patient: Less than 30
--- NOTE | 2023-12-13 15:53 | P.PN ---
Subjective Progress Note Date: 12/13/23 CHIEF COMPLAINT: Perforated sigmoid diverticulitis HISTORY OF PRESENT ILLNESS: Patient is postop day #5 status post exploratory laparotomy, sigmoid colectomy and end colostomy. Patient's ostomy is functio elisha. She reports decreased pain on the right side of the abdomen. Denies any nausea or vomiting. She sitting at bedside chair. Afebrile. WBC stable at 13.8 potassium 2.9 and being replaced PHYSICAL EXAM: VITAL SIGNS: Reviewed. GENERAL: Well-developed in no acute distress. ABDOMEN: Soft. Nondistended. Tenderness palpation the right side abdomen. Incision site clean dry and intact. James in place. Ostomy with pink stoma. tiny hard piece of stool at stoma. NEUROLOGIC: Alert and oriented. Cranial nerves II through XII grossly intact. ASSESSMENT: 1. Perforated sigmoid diverticulitis 2. Urinary retention. Hood catheter in place. 3. Hypokalemia PLAN: -Advance diet to clear liquids -Continue pain management -Encourage patient to ambulate -Discontinue Hood catheter tomorrow -Encourage patient to use incentive spirometer -Continue IV fluids -Potassium being replaced for hypokalemia. Check magnesium due to recurrent hypokalemia -GI prophylaxis Protonix DVT prophylaxis subcu heparin Physician Supervisor Mill note has been reviewed by physician. Signing provider agrees with the documented findings, assessment, and plan of care. I have personally seen and examined the patient, reviewed the [employer] /PAs history, exam and MDM and agree with the assessment and plan as written. Based on total visit time, I have performed more than 50% of the visit. As above: Patient doing well today. Pain on the right side is mostly gone she says. She is having good bowel function. Advance to full liquid diet for tomorrow. Keep Hood until tomorrow. Objective - Vital Signs Vital signs: Vital Signs Temp 97.7 F 12/13/23 09:55 Pulse 80 12/13/23 11:42 Resp 16 12/13/23 09:55 BP 138/72 12/13/23 09:55 Pulse Ox 95 12/13/23 09:55 FiO2 30 12/09/23 10:00 Intake & Output 12/12/23 12/13/23 12/13/23 18:59 06:59 18:59 Intake Total 10 Output Total 3200 776 1 Balance -3200 -766 -1 Weight 35.5 kg Intake: IV 10 Invasive Line 2 10 Output: Urine 3200 775 Stool 1 1 Other: Voiding Method Indwelling Catheter Indwelling Catheter Indwelling Catheter ABP, PAP, CO, CI - Last Documented Arterial Blood Pressure 119/92 - Labs CBC & Chem 7: 12/13/23 08:48 12/13/23 08:48 Labs: Abnormal Lab Results - Last 24 Hours (Table) 12/12/23 12/13/23 12/13/23 Range/Units 20:54 02:00 08:48 WBC (3.8-10.6) k/uL RBC (3.80-5.40) m/uL Neutrophils # (1.3-7.7) k/uL Lymphocytes # (1.0-4.8) k/uL Sodium 135 L (137-145) mmol/L Potassium 2.9 L (3.5-5.1) mmol/L Creatinine 0.46 L (0.52-1.04) mg/dL Glucose 111 H (74-99) mg/dL POC Glucose (mg/dL) 148 H 122 H (70-110) mg/dL Calcium 7.3 L (8.4-10.2) mg/dL 12/13/23 Range/Units 08:48 WBC 13.8 H (3.8-10.6) k/uL RBC 3.74 L (3.80-5.40) m/uL Neutrophils # 12.0 H (1.3-7.7) k/uL Lymphocytes # 0.7 L (1.0-4.8) k/uL Sodium (137-145) mmol/L Potassium (3.5-5.1) mmol/L Creatinine (0.52-1.04) mg/dL Glucose (74-99) mg/dL POC Glucose (mg/dL) (70-110) mg/dL Calcium (8.4-10.2) mg/dL Microbiology - Last 24 Hours (Table) 12/08/23 09:40 Gram Stain - Final Other - Other Wound Culture - Final Escherichia coli Alpha Hemolytic Streptococcus
[2023-12-13 16:26] LABS: Glucose,Whole Blood 117 mg/dL (70-110)
[2023-12-13] MEDS: PANTOPRAZOLE 40 MG TABLET PO SCH (17:07)
[2023-12-13] MEDS: METOPROLOL TARTRATE 25 MG TAB PO SCH (20:26)
[2023-12-13] MEDS: HYDROcodone/APAP 5-325MG 1 EACH TAB PO PRN (20:37)
[2023-12-13 21:13] LABS: Glucose,Whole Blood 104 mg/dL (70-110)
[2023-12-14 03:13] LABS: Glucose,Whole Blood 110 mg/dL (70-110)
[2023-12-14 09:50] LABS: Basophils % (A) 0 %; Eosinophils # (A) 0.3 k/uL (0-0.7); Eosinophils % (A) 3 %; HCT 30.8 % (34.0-46.0); HGB 10.8 gm/dL (11.4-16.0); Lymphocytes # (A) 0.7 k/uL (1.0-4.8); Lymphocytes % (A) 6 %; MCH 33.6 pg (25.0-35.0); MCHC 35.2 g/dL (31.0-37.0); MCV 95.5 fL (80.0-100.0); Mean Platelet Volume 8.5; Monocytes # (A) 0.6 k/uL (0-1.0); Monocytes % (A) 6 %; Neutrophils # (A) 8.9 k/uL (1.3-7.7); Neutrophils % (A) 84 %; Platelet Count 274 k/uL (150-450); RBC 3.23 m/uL (3.80-5.40); RDW 12.8 % (11.5-15.5); WBC 10.6 k/uL (3.8-10.6)
[2023-12-14 10:34] LABS: African American GFR (CKD) >90 (>60 ml/min/1.73 sqM); Anion Gap 2 mmol/L; Blood Urea Nitrogen 8 mg/dL (7-17); Calcium 7.4 mg/dL (8.4-10.2); Carbon Dioxide 22 mmol/L (22-30); Chloride 106 mmol/L (98-107); Glucose 84 mg/dL (74-99); Magnesium 1.3 mg/dL (1.6-2.3); Non-African American GFR(CKD) >90 (>60 ml/min/1.73 sqM); Potassium 3.7 mmol/L (3.5-5.1); Sodium 130 mmol/L (137-145)
[2023-12-14 10:42] LABS: Glucose,Whole Blood 157 mg/dL (70-110)
[2023-12-14 11:34] LABS: Glucose,Whole Blood 146 mg/dL (70-110)
--- NOTE | 2023-12-14 11:56 | P.PN ---
Subjective Progress Note Date: 12/14/23 Principal diagnosis: Reason for follow-up is perforated diverticulitis and abscess Patient is a 78-year-old female with a past medical history significant for COPD hypertension rheumatoid arthritis presenting to the ER for evaluation of epigastric abdominal pain, patient did have a CT abdominal pelvis concerning for free subsequently taken to the OR status post laparotomy with evidence of perforated sigmoid diverticulitis status post sigmoid colectomy and end colostomy. On today's evaluation that is 12/14/2023, the patient is afebrile, patient is on room air, the patient denies chest pain shortness of breath patient did have occasional cough but not bring up any sputum h, patient denies nausea no vomiting abdominal pain is currently controlled and did have output in her colostomy. Patient white count normal of 10.6 this morning creatinine 0.45 abdominal cu lture with E. coli and Streptococcus and anaerobes Objective - Vital Signs Vital signs: Vital Signs Temp 97.7 F 12/14/23 08:30 Pulse 80 12/14/23 09:17 Resp 16 12/14/23 09:00 BP 162/76 12/14/23 08:30 Pulse Ox 98 12/14/23 08:30 FiO2 30 12/09/23 10:00 Intake & Output 12/13/23 12/14/23 12/14/23 18:59 06:59 18:59 Intake Total 240 Output Total 1101 625 650 Balance -861 -625 -650 Intake: Oral 240 Output: Urine 900 650 Stool 201 625 Other: Voiding Method Indwelling Catheter Indwelling Catheter Indwelling Catheter ABP, PAP, CO, CI - Last Documented Arterial Blood Pressure 119/92 - Exam GENERAL DESCRIPTION: An elderly female lying in bed in no distress RESPIRATORY SYSTEM: Unlabored breathing , decreased breath sounds at bases HEART: S1 S2 regular rate and rhythm , ABDOMEN: Soft , mild tenderness EXTREMITIES: No edema feet - Labs CBC & Chem 7: 12/14/23 08:50 12/14/23 08:50 Labs: Abnormal Lab Results - Last 24 Hours (Table) 12/13/23 12/13/23 12/14/23 Range/Units 08:48 16:21 08:50 RBC (3.80-5.40) m/uL Hgb (11.4-16.0) gm/dL Hct (34.0-46.0) % Neutrophils # (1.3-7.7) k/uL Lymphocytes # (1.0-4.8) k/uL Sodium 130 L (137-145) mmol/L Creatinine 0.45 L (0.52-1.04) mg/dL POC Glucose (mg/dL) 117 H (70-110) mg/dL Calcium 7.4 L (8.4-10.2) mg/dL Magnesium 1.5 L 1.3 L (1.6-2.3) mg/dL 12/14/23 12/14/23 12/14/23 Range/Units 08:50 10:40 11:32 RBC 3.23 L (3.80-5.40) m/uL Hgb 10.8 L (11.4-16.0) gm/dL Hct 30.8 L (34.0-46.0) % Neutrophils # 8.9 H (1.3-7.7) k/uL Lymphocytes # 0.7 L (1.0-4.8) k/uL Sodium (137-145) mmol/L Creatinine (0.52-1.04) mg/dL POC Glucose (mg/dL) 157 H 146 H (70-110) mg/dL Calcium (8.4-10.2) mg/dL Magnesium (1.6-2.3) mg/dL Assessment and Plan (1) Intra-abdominal abscess Current Visit: Yes Status: Acute Code(s): K65.1 - PERITONEAL ABSCESS SNOMED Code(s): 58182851 (2) Allergy to multiple antibiotics Current Visit: Yes Status: Acute Code(s): Z88.1 - ALLERGY STATUS TO OTHER ANTIBIOTIC AGENTS SNOMED Code(s): 377232689 (3) Perforated viscus Current Visit: Yes Status: Acute Code(s): R19.8 - OTH SYMPTOMS AND SIGNS INVOLVING THE DGSTV SYS AND ABDOMEN SNOMED Code(s): 455701546 Plan: 1patient presented to hospital with abdominal pain has been diagnosed with a perforated viscus in this patient was status post laparotomy with evidence of perforated sigmoid diverticulitis status post laparotomy sigmoid colectomy and end colostomy for likely organism need to cover will be enteric gram-negative both aerobes and anaerobes 2-patient with multiple antibiotic ALLERGIES that would limit the number of antibiotic safe to use 3-patient is afebrile and the patient white count has normalized, the patient abdominal culture has been finalized with E. coli that is sensitive pathogen along with strep and anaerobes 4patient to continue with cefepime and Flagyl, with a plan to finish therapy with oral Ceftin and Flagyl Dictation was produced using [employer] dictation software. please excuse any grammatical, word or spelling errors.
[2023-12-14 12:01] LABS: C Reactive Protein 5.3 mg/dL (<1.0)
--- NOTE | 2023-12-14 13:03 | P.PN ---
Subjective Progress Note Date: 12/14/23 This is a 78-year-old female patient with a history of rheumatoid arthritis, hypertension, hyperlipidemia, gastroesophageal reflux disease chronic obstructive pulmonary disease with chronic and ongoing tobacco dependence. She presented to the emergency room early this morning with complaints of severe e pigastric abdominal pain. She has a prior history of gastric ulcers and frequently has abdominal pain. ET scan of the abdomen revealed evidence of free air. Gastric or proximal duodenal ulcer perforation was suspected given severe gastric antral wall thickening. Chest x-ray revealed no acute pulmonary process. White count 8.8. Hemoglobin 12.5. Platelets 263. Sodium 138. Potassium 4.0. Bicarb 23. BUN 19. Creatinine 0.51. Glucose 102. Viral screen was negative. Lipase 11. Amylase less than 30. AST 56. ALT 48. She was taken to the operating room and had undergone a full oratory laparotomy, sigmoid colectomy and end colostomy for a perforated sigmoid diverticulitis. She remained intubated and on the mechanical ventilator and transferred to the intensive care unit. Current vent to later settings are assist-control mode at a rate of 14, tidal line 350, FiO2 100% and a PEEP of 5. She is sedated on propofol at 20 mcg/kg/min. She has lactated Ringer's at 125 MLS per hour. She is on antibiotics in the form of Levaquin and Flagyl. Abdominal dressing is dry and intact. There is a left colostomy in place. Right radial arterial line in place. She is somewhat hypertensive and initiated on Cleviprex infusion 1 mg/h. Dilaudid for pain control. The patient is seen today December 09, 2023 in follow-up in the intensive care unit. She remains intubated on mechanical ventilator. Current settings are assist-control mode at a rate of 20, tidal line 350, FiO2 30% and a PEEP of 5. Morning blood gases reveal a pO2 of 165, pCO2 39 and a pH of 7.43. These were on FiO2 40%. Sedated on propofol at 20 mics per kilogram per minute. Lactated Ringer's at 125 MLS per hour. She remains on bronchodilators. Antibiotics in the form of cefepime and Flagyl. Heparin for DVT prophylaxis. Chest x-ray reveals no significant change. Evidence of COPD. The patient is seen today December 10, 2023 in follow-up in the intensive care unit. She is awake and alert in no acute distress. She is maintaining good O2 saturations in the 90s on room air. She has lactated Ringer's at 125 MLS per hour. Nasogastric tube remains in place. He is continued on DuoNeb ventilations, Pulmicort and perform scintillations, Singulair. NicoDerm patch in place. She remains on heparin for DVT prophylaxis. Antibiotics in the form of cefepime and Flagyl. Wound culture positive for gram-negative bacilli. White count 13.8. Hemoglobin 10.8. Platelets 255. Sodium 133. Potassium 3.8. Bicarb 24. BUN 20. Creatinine 0.80. Glucose 201 after treatment for hypoglycemia. Currently NPO. Chest x-ray reveals patchy density in the right lower lobe and slight increase in small basilar effusions. The patient is seen today December 11, 2023 in follow-up on the selective care unit. She was transferred out of the ICU yesterday. She is awake and alert in no acute distress. Sitting up in bed. Maintaining good O2 saturations in the 90s on room air. She remains NPO. She remains with a night nasogastric tube in place. She is D5.45 normal saline at 125 MLS per hour. Wound culture was positive for E. coli. Abdominal dressing dry and intact. Ostomy present, nonfunctioning thus far. Blood sugar 133. She is continued on DuoNeb ventilations, Pulmicort and Perforomist inhalations. NicoDerm patch applied. Utilizing NicoDerm gum. Antibiotics in the form of cefepime and Flagyl. Heparin for DVT prophylaxis. On today's evaluation of On today's evaluation of 12/12/2023, the patient is being seen for a follow-up. The patient is still recovering from her surgery. The patient is currently on room air oxygen. Noted the patient remains NPO. Bowel sounds are quite hypoactive and nearly absent and there is no functionality in her colostomy bag. No significant output has been noted. The patient denies having any nausea or vomiting. Some vague abdominal discomfort in the right lower quadrant area. Otherwise, she has no other new complaints. The surgical scar is dry clean and intact. The patient remains on IV cefepime and Flagyl. The patient is afebrile. Hemodynamically stable. BUN is at 6 with a creatinine of 0.38 and a potassium level is at 2.9 that needs to be replaced and the sodium levels at 132. WBC count of 13.2 with a hemoglobin 12.4. Patient is using the incentive spirometer. She is ambulating. No altered mentation. No other significant issues otherwise. NG tube was removed yesterday. As for the intra-abdominal wounds, it is growing anaerobic gram-negative bacilli in addition to E. coli and Streptococcus. The patient is afebrile. Antibiotic coverage is adequate for now. The patient is known to have previous history of RA, hypertension, hyperlipidemia, COPD and previous history of smoking. The patient was diagnosed having a perforated sigmoid diverticulitis and the patient has undergone exploratory laparotomy, sigmoid colectomy and end colostomy. On 12/13/2023, the patient is on room air oxygen and the patient is calm and comfo rtable. No significant respite distress. Bowel sounds are hypoactive. Nevertheless, the patient was able to pass stool in the colostomy bag. She continues to have some limited abdominal tenderness.She remains hemodynamically stable with a white cell count of 15.8 and a hemoglobin of 11.9 and his sodium level is at 135 with a potassium level of 2.9 and a BUN of 7 with a creatinine of 0.46. The patient remains on Flagyl and cefepime as a broad-spectrum antibiotic coverage as the patient has shown some anaerobic growth and E. coli and Streptococcus alphahemolytic in the abdominal cultures. In terms of her morning abdominal x-ray, it showed some nonspecific findings and there was a tiny left-sided pleural effusion. On today's evaluation of 12/14/2023, the patient is tolerating clear liquid diet. She is on room air oxygen. No significant respite distress. No cough or sputum production. No chest tightness or wheezing. No abdominal pain. Her colostomy is functional. She remains on broad-spectrum antibiotics. She is afebrile.There was because of 10.6 with a hemoglobin 10.8 and a platelet count of 274. BUN is at 8 with a creatinine of 0.4 and sodium levels at 130. Surgical wound is dry clean and intact. Colostomy is functional. ID is on the case. General surgery is on the case. She remains on room air oxygen. Objective - Vital Signs Vital signs: Vital Signs Temp 97.7 F 12/14/23 08:30 Pulse 80 12/14/23 09:17 Resp 16 12/14/23 08:30 BP 162/76 12/14/23 08:30 Pulse Ox 98 12/14/23 08:30 FiO2 30 12/09/23 10:00 Intake & Output 12/13/23 12/14/23 12/14/23 18:59 06:59 18:59 Intake Total 240 Output Total 1101 625 650 Balance -861 -625 -650 Intake: Oral 240 Output: Urine 900 650 Stool 201 625 Other: Voiding Method Indwelling Catheter Indwelling Catheter ABP, PAP, CO, CI - Last Documented Arterial Blood Pressure 119/92 - Exam GENERAL EXAM: Awake, sitting up in bed, 78-year-old female, on room air, in no apparent distress. The patient is currently on room air oxygen. HEAD: Normocephalic. EYES: Sluggish reaction of pupils, equal size. NOSE: Clear with pink turbinates. THROAT: Nasogastric tube secured in place. No erythema or exudates. NECK: No masses, no JVD. CHEST: No chest wall deformity. LUNGS: Equal air entry with faint crackles in the posterior bases. CVS: S1 and S2 normal with no audible murmur, regular rhythm. ABDOMEN: Abdominal dressing dry and intact. Left abdominal ostomy output is p resent. Bowel sounds are hypoactive SPINE: No scoliosis or deformity SKIN: No rashes CENTRAL NERVOUS SYSTEM: Sedated, tone is normal in all 4 extremities. EXTREMITIES: Right radial arterial line in place there is no peripheral edema. No clubbing, no cyanosis. Peripheral pulses are intact. - Labs CBC & Chem 7: 12/14/23 08:50 12/14/23 08:50 Labs: Abnormal Lab Results - Last 24 Hours (Table) 12/13/23 12/13/23 12/14/23 Range/Units 08:48 16:21 08:50 RBC (3.80-5.40) m/uL Hgb (11.4-16.0) gm/dL Hct (34.0-46.0) % Neutrophils # (1.3-7.7) k/uL Lymphocytes # (1.0-4.8) k/uL Sodium 130 L (137-145) mmol/L Creatinine 0.45 L (0.52-1.04) mg/dL POC Glucose (mg/dL) 117 H (70-110) mg/dL Calcium 7.4 L (8.4-10.2) mg/dL Magnesium 1.5 L 1.3 L (1.6-2.3) mg/dL 12/14/23 12/14/23 Range/Units 08:50 10:40 RBC 3.23 L (3.80-5.40) m/uL Hgb 10.8 L (11.4-16.0) gm/dL Hct 30.8 L (34.0-46.0) % Neutrophils # 8.9 H (1.3-7.7) k/uL Lymphocytes # 0.7 L (1.0-4.8) k/uL Sodium (137-145) mmol/L Creatinine (0.52-1.04) mg/dL POC Glucose (mg/dL) 157 H (70-110) mg/dL Calcium (8.4-10.2) mg/dL Magnesium (1.6-2.3) mg/dL Assessment and Plan Plan: Severe acute abdominal pain secondary to perforated sigmoid diverticulitis. Status post exploratory laparotomy, sigmoid colectomy, end colostomy. Postoperative day # 6. The patient remains NPO. There is output in the c olostomy bag. Bowel sounds are hypoactive. Intra-abdominal wounds have shown anaerobic gram-negative bacillus and E. coli and Streptococcus, thrombolytic and the patient remains on a combination of cefepime and Flagyl.. The patient is currently clear liquid diet. Acute hypoxemic respiratory failure secondary to above requiring prolonged ventilation postoperatively recovered and on room air Severe protein calorie malnutrition with a BMI of less than 20 kg/m History of gastric ulcers and esophagitis History of rheumatoid arthritis History of chronic obstructive pulmonary disease History of chronic tobacco dependence History of hypertension History of hyperlipidemia History of gastroesophageal reflux disease Plan Advance diet as tolerated, currently on clear liquid diet Continue using incentive spirometer Continue IV Flagyl and cefepime Monitor the bowel sounds and functionality of the colostomy, there is positive output in the colostomy is functional Feeding as per general surgery Increase mobility and level of activity Continue with DuoNeb updrafts Continue Perforomist and Pulmicort nebulized treatments twice a day Patient has a nicotine patch Patient is seeing Eric for pain control and her pain is under adequate control for now Heparin subcu for DVT prophylaxis Will continue to follow
--- NOTE | 2023-12-14 14:07 | P.PN ---
Progress Note - Text Progress Note Date: 12/14/23 - Chief Complaint Abdominal pain - History of Present Illness This is a pleasant 78-year-old patient, chronic stable medical conditions include COPD, hypertension, rheumatoid arthritis. Patient is active smoker. Patient with 3 days been having increasing abdominal pain. Presented to the ER. CT scan showed free air. Patient was taken to the OR yesterday by Dr. Lentz. Underwent exploratory laparotomy. Found to have a perforated sigmoid d iverticulitis. Sigmoid colectomy with end colostomy was done. Today in the ICU: Extubated earlier today. 2 L nasal cannula. Has NG tube to suction. No output in the colostomy bag. Son at the bedside. Pain at the surgical site. December 10: Patient moved out of the ICU. NG tube to intermittent suction. Did not sleep well yesterday. States when she tries to close her eyes she starts hallucinating. Given one-time dose of Haldol. Having significant pain at the operative site. Pain medications per surgical team. No output through colostomy bag. Discussed with nurse. Sons at the bedside. Also added Nicorette gum as needed. Hypoglycemia: Change IV fluids to D5.45. Patient on IV cefepime and IV Flagyl. December 11: NG tube in place. Plan for it to be discontinued this afternoon. Very little output from the colostomy bag. Did sleep her last night.'s some hallucinations. Discussed with the patient's son. Try to cut back on IV narcotics balance between pain control and side effects. December 12: NG tube was discontinued yesterday. Remains NPO per surgery. No output from the colostomy bag. Did not sleep well last night. Chewing gum ordered. Remains on IV cefepime. IV Flagyl. For blood pressure start Catapres patch 0.2. December 13: Patient be started on clear liquids by surgery. Some stool from the colostomy bag. Pain better. Pain switched over to oral pain medications. Abdominal wound cultures growing E. coli and alphahemolytic Streptococcus. Remains on IV cefepime and IV Flagyl. Abdominal pain better. December 14: Patient having dark stool output through the colostomy bag. Did sit up in a chair. On full liquid diet. Patient requested to have a home dose of Percocet as opposed to [place]. Ordered. Blood pressure running high. Increase Lopressor to 50 mg twice daily. Active Medications Albuterol Sulfate (Albuterol Nebulized 2.5 Mg/3 Ml) 2.5 mg INHALATION RT-Q4H PRN PRN Reason: Shortness Of Breath Albuterol/Ipratropium (Ipratropium-Albuterol 3 Ml Neb) 3 ml INHALATION RT-Q2H PRN PRN Reason: Shortness Of Breath Or Wheezing Albuterol/Ipratropium (Ipratropium-Albuterol 3 Ml Neb) 3 ml INHALATION RT-QID [facility] Last Admin: 12/14/23 12:32 Dose: 3 ml Atorvastatin Calcium (Atorvastatin 20 Mg Tab) 20 mg PO DAILY [facility] Last Admin: 12/14/23 09:04 Dose: 20 mg Benzocaine (Benzocaine [place] 1 Can) 1 spray MUCOUS MEM QID PRN; Protocol PRN Reason: Mouth Irritation Last Admin: 12/10/23 00:20 Dose: 1 spray Benzocaine/Menthol (Benzocaine/Menthol Lozeng 1 Each Lozenge) 1 each MUCOUS MEM Q4HR PRN PRN Reason: Sore Throat Budesonide (Budesonide 1 Mg/2 Ml Nebu) 1 mg INHALATION RT-BID [facility] Last Admin: 12/14/23 08:53 Dose: 1 mg Clonidine HCl (Clonidine 0.2 Mg/24hr Patch) 1 patch TRANSDERM Q7D [facility] Last Admin: 12/12/23 17:17 Dose: 1 patch Dextrose/Water (Dextrose 50% Syringe 50 Ml) 25 ml IVP PER PROTOCOL PRN; Protocol PRN Reason: Hypoglycemia Last Admin: 12/10/23 05:16 Dose: 25 ml Dextrose/Water (Dextrose 50% Syringe 50 Ml) 50 ml IVP PER PROTOCOL PRN; Protocol PRN Reason: Hypoglycemia Formoterol Fumarate (Formoterol Fumarate 20 Mcg/2 Ml Nebu) 20 mcg INHALATION RT-BID [facility] Last Admin: 12/14/23 08:53 Dose: 20 mcg Heparin Sodium (Porcine) (Heparin Sodium,Porcine 5,000 Unit/Ml 1 Ml Vial) 5,000 unit SQ Q8HR [facility] Last Admin: 12/14/23 09:00 Dose: 5,000 unit Hydroxychloroquine Sulfate (Hydroxychloroquine Sulfate 200 Mg Tab) 200 mg PO BID [facility] Last Admin: 12/14/23 09:00 Dose: 200 mg Metronidazole 500 mg/ IV (Solution) 100 mls @ 100 mls/hr IVPB Q8H [facility]; Protocol Last Admin: 12/14/23 12:03 Dose: 100 mls/hr Dextrose/Sodium Chloride (Dextrose 5%-1/2ns Iv Soln) 1,000 mls @ 125 mls/hr IV .Q8H [facility] Last Admin: 12/14/23 12:02 Dose: 125 mls/hr Cefepime HCl 2 gm/ Sodium (Chloride) 100 mls @ 25 mls/hr IVPB Q8HR [facility]; Protocol Last Admin: 12/14/23 09:24 Dose: 25 mls/hr Ketorolac Tromethamine (Ketorolac 15 Mg/Ml 1 Ml Vial) 15 mg IVP Q6HR [facility] Stop: 12/17/23 14:04 Last Admin: 12/14/23 12:02 Dose: 15 mg Metoprolol Tartrate (Metoprolol Tartrate 5 Mg/5 Ml Vial) 5 mg IVP Q6HR PRN PRN Reason: Blood Pressure - High Last Admin: 12/12/23 09:52 Dose: 5 mg Metoprolol Tartrate (Metoprolol Tartrate 25 Mg Tab) 25 mg PO BID [facility] Last Admin: 12/14/23 09:04 Dose: 25 mg Miscellaneous Information (Magnesium Replacement Protocol 1 Each Misc) 1 each MISCELLANE DAILY PRN; Protocol PRN Reason: Per Protocol Miscellaneous Information (Potassium Replacement Protocol 1 Each Misc) 1 each MISCELLANE DAILY PRN; Protocol PRN Reason: Per Protocol Montelukast Sodium (Montelukast 10 Mg Tab) 10 mg PO DAILY [facility] Last Admin: 12/14/23 09:00 Dose: 10 mg Naloxone HCl (Naloxone 0.4 Mg/Ml 1 Ml Vial) 0.2 mg IV Q2M PRN PRN Reason: Opioid Reversal Nicotine (Nicotine 21mg/24hr Patch) 1 patch TRANSDERM DAILY [facility] Last Admin: 12/14/23 09:03 Dose: 1 patch Nicotine Polacrilex (Nicotine Gum (Polacrilex) 2 Mg Gum) 2 mg BUCCAL Q4HR PRN PRN Reason: Nicotine Cravings Oxycodone/Acetaminophen (Oxycodone-Apap 7.5-325mg 1 Each Tab) 1 each PO Q6H PRN PRN Reason: Pain Pantoprazole Sodium (Pantoprazole 40 Mg Tablet) 40 mg PO AC-BID [facility] Last Admin: 12/14/23 06:46 Dose: 40 mg Temazepam (Temazepam 15 Mg Cap) 15 mg PO HS PRN PRN Reason: Insomnia Last Admin: 12/13/23 22:44 Dose: 15 mg Social history: Patient been smoking for many years. Was up to 4 packs a day. Now down to a pack a day. Works at [employer]. Lives with her son. Physical examination: VITAL SIGNS: 97.7, 76, 16, 162/76, 98% room air GENERAL: Reclining in bed, tired EYES: Pupils equal. Conjunctiva micheal l. HEENT: External appearance of nose and ears normal, oral cavity grossly normal. Diminished hearing in the right ear. NECK: JVD not raised; masses not palpable. HEART: First and second heart sounds are normal; no edema. LUNGS:[ Respiratory rate increased, diminished breath sounds. ABDOMEN: Soft, decreased tenderness r, no guarding rigidity, liver spleen not palpable, no masses palpable. Left-sided colostomy bag-some dark stool. PSYCH: [Alert and oriented x3; mood and affect anxious. MUSCULOSKELETAL:No Clubbing/cyanosis;muscles-grossly intact INVESTIGATIONS, reviewed in the clinical context: December 14: White count 10.6 hemoglobin 10.8 potassium 3.7 creatinine 0.45. Sodium 130 December 13: White count 13.8 hemoglobin 11.9 platelets 294 potassium 2.9 creatinine 0.46 Abdominal wound culture: E. coli and alphahemolytic Streptococcus. December 12: White count 13.2 hemoglobin 12.4 potassium 2.9 creatinine 0.38 December 10: White count 13.8 hemoglobin 10.8 platelets 255 potassium 3.8 creatinine 0.8 glucose 43 December 09: White count 10.8 hemoglobin 10.9 platelets 254 sodium 135 potassium 3.8 BUN 20 creatinine 0.61 Chest x-ray film personally reviewed by me-hyperinflation Telemetry strip bedside monitor: Personally reviewed by me. Sinus rhythm CT scan abdomen pelvis: Moderate prominence of the stomach. Severe wall thickening of the gastric antrum. Distal colonic diverticulosis. Free air identified anterior to the bladder. Assessment and plan: -Acute sigmoid diverticulitis with perforation. Cultures growing E. coli and alphahemolytic Streptococcus Patient underwent sigmoid resection and formation of her colostomy on December [address] Lentz. Full liquids. [NG tube discontinued] IV cefepime and IV Flagyl. -Postop surgical site pain.: Better Patient being so show to home dose of Percocet -Severe hypokalemia: Replaced Replace potassium -Possible secondary peritonitis from hollow viscus perforation IV cefepime and IV Flagyl. ID following -COPD and a current smoker DuoNeb 3 times daily. Singulair.. Breztri inhaler -Chronic nicotine dependence, cigarette smoker Nicotine patch -Hyperlipidemia Lipitor 20 mg a day -Severe protein calorie malnutrition. BMI 18.3. Dietitian on the case -Chronic muscle spasm Baclofen as needed -Peptic ulcer disease PPI -Hypoglycemia from poor oral intake: Better -Essential hypertension. Uncontrolled Increase Lopressor to 50 mg twice daily -Insomnia with hallucinations. Restoril. Doing better. On full liquids. Increase Lopressor to 50 mg twice daily. Patient request changed over to Percocet-Home dose Thank you Dr. Lentz Past Medical History Past Medical History: COPD, Hypertension, Rheumatoid Arthritis (RA) Additional Past Medical History / Comment(s): bleeding ulcer History of Any Multi-Drug Resistant Organisms: None Reported Past Surgical History: Tubal Ligation Additional Past Surgical History / Comment(s): Eye surgery (cataracts removed). Past Anesthesia/Blood Transfusion Reactions: No Reported Reaction Past Psychological History: No Psychological Hx Reported Smoking Status: Current every day smoker Past Alcohol Use History: Rare Past Drug Use History: None Reported
--- NOTE | 2023-12-14 15:30 | P.PN ---
Subjective Progress Note Date: 12/14/23 CHIEF COMPLAINT: Perforated sigmoid diverticulitis HISTORY OF PRESENT ILLNESS: Patient is postop day #6 status post exploratory laparotomy, sigmoid colectomy and end colostomy. Patient's ostomy is functio elisha. She reports decreased pain on the right side of the abdomen. Denies any nausea or vomiting. She tolerated the full liquids. Afebrile. WBC down from 13.8-10.6 Hgb 10.8 potassium improved at 3.7 magnesium 1.3 PHYSICAL EXAM: VITAL SIGNS: Reviewed. GENERAL: Well-developed in no acute distress. ABDOMEN: Soft. Nondistended. Tenderness palpation the right side abdomen. Incision site clean dry and intact. James in place. Ostomy with pink stoma. tiny hard piece of stool at stoma. NEUROLOGIC: Alert and oriented. Cranial nerves II through XII grossly intact. ASSESSMENT: 1. Perforated sigmoid diverticulitis 2. Urinary retention 3. Hypokalemia improved 4. Hypomagnesemia PLAN: -Advance diet to low fiber -Discontinue Hood catheter -Replace magnesium -Continue pain management -Encourage patient to use incentive spirometer -GI prophylaxis Protonix DVT prophylaxis subcu heparin [employer] note has been reviewed by physician. Signing provider agrees with the documented findings, assessment, and plan of care. Objective - Vital Signs Vital signs: Vital Signs Temp 97.7 F 12/14/23 08:30 Pulse 80 12/14/23 12:43 Resp 16 12/14/23 09:00 BP 162/76 12/14/23 08:30 Pulse Ox 98 12/14/23 08:30 FiO2 30 12/09/23 10:00 Intake & Output 12/13/23 12/14/23 12/14/23 18:59 06:59 18:59 Intake Total 240 Output Total 1101 625 650 Balance -861 -625 -650 Intake: Oral 240 Output: Urine 900 650 Stool 201 625 Other: Voiding Method Indwelling Catheter Indwelling Catheter Indwelling Catheter ABP, PAP, CO, CI - Last Documented Arterial Blood Pressure 119/92 - Labs CBC & Chem 7: 12/14/23 08:50 12/14/23 08:50 Labs: Abnormal Lab Results - Last 24 Hours (Table) 12/13/23 12/13/23 12/14/23 Range/Units 08:48 16:21 08:50 RBC (3.80-5.40) m/uL Hgb (11.4-16.0) gm/dL Hct (34.0-46.0) % Neutrophils # (1.3-7.7) k/uL Lymphocytes # (1.0-4.8) k/uL Sodium 130 L (137-145) mmol/L Creatinine 0.45 L (0.52-1.04) mg/dL POC Glucose (mg/dL) 117 H (70-110) mg/dL Calcium 7.4 L (8.4-10.2) mg/dL Magnesium 1.5 L 1.3 L (1.6-2.3) mg/dL C-Reactive Protein 5.3 H (<1.0) mg/dL 12/14/23 12/14/23 12/14/23 Range/Units 08:50 10:40 11:32 RBC 3.23 L (3.80-5.40) m/uL Hgb 10.8 L (11.4-16.0) gm/dL Hct 30.8 L (34.0-46.0) % Neutrophils # 8.9 H (1.3-7.7) k/uL Lymphocytes # 0.7 L (1.0-4.8) k/uL Sodium (137-145) mmol/L Creatinine (0.52-1.04) mg/dL POC Glucose (mg/dL) 157 H 146 H (70-110) mg/dL Calcium (8.4-10.2) mg/dL Magnesium (1.6-2.3) mg/dL C-Reactive Protein (<1.0) mg/dL
[2023-12-14 16:31] LABS: Glucose,Whole Blood 89 mg/dL (70-110)
[2023-12-14] MEDS: oxyCODONE-APAP 7.5-325MG 1 EACH TAB PO PRN (16:40)
[2023-12-14] MEDS: METOPROLOL TARTRATE 25 MG TAB PO STA (16:40)
[2023-12-14] MEDS: LACTATED RINGERS 1,000 ML IV SCH (16:48)
[2023-12-14] MEDS: MAGNESIUM SULFATE-D5W PMX 1 GM in DEXTROSE/WATER 1 100ML.BAG IVPB SCH (16:48)
[2023-12-14 20:14] LABS: Glucose,Whole Blood 163 mg/dL (70-110)
[2023-12-14] MEDS: METOPROLOL TARTRATE 50 MG TAB PO SCH (21:14)
[2023-12-15 06:29] LABS: Glucose,Whole Blood 74 mg/dL (70-110)
[2023-12-15 09:21] LABS: Basophils % (A) 0 %; Eosinophils # (A) 0.4 k/uL (0-0.7); Eosinophils % (A) 3 %; HCT 34.3 % (34.0-46.0); HGB 11.4 gm/dL (11.4-16.0); Lymphocytes # (A) 0.8 k/uL (1.0-4.8); Lymphocytes % (A) 7 %; MCH 32.1 pg (25.0-35.0); MCHC 33.2 g/dL (31.0-37.0); MCV 96.5 fL (80.0-100.0); Mean Platelet Volume 8.9; Monocytes # (A) 0.5 k/uL (0-1.0); Monocytes % (A) 5 %; Neutrophils # (A) 9.2 k/uL (1.3-7.7); Neutrophils % (A) 84 %; Platelet Count 294 k/uL (150-450); RBC 3.56 m/uL (3.80-5.40); RDW 12.9 % (11.5-15.5)
[2023-12-15 09:51] LABS: African American GFR (CKD) >90 (>60 ml/min/1.73 sqM); Anion Gap 4 mmol/L; Blood Urea Nitrogen 10 mg/dL (7-17); Calcium 7.7 mg/dL (8.4-10.2); Carbon Dioxide 22 mmol/L (22-30); Chloride 106 mmol/L (98-107); Glucose 91 mg/dL (74-99); Magnesium 1.7 mg/dL (1.6-2.3); Non-African American GFR(CKD) >90 (>60 ml/min/1.73 sqM); Potassium 3.6 mmol/L (3.5-5.1); Sodium 132 mmol/L (137-145)
[2023-12-15 11:38] LABS: Glucose,Whole Blood 81 mg/dL (70-110)
--- NOTE | 2023-12-15 13:29 | P.PN ---
Subjective Progress Note Date: 12/15/23 This is a 78-year-old female patient with a history of rheumatoid arthritis, hypertension, hyperlipidemia, gastroesophageal reflux disease chronic obstructive pulmonary disease with chronic and ongoing tobacco dependence. She presented to the emergency room early this morning with complaints of severe e pigastric abdominal pain. She has a prior history of gastric ulcers and frequently has abdominal pain. ET scan of the abdomen revealed evidence of free air. Gastric or proximal duodenal ulcer perforation was suspected given severe gastric antral wall thickening. Chest x-ray revealed no acute pulmonary process. White count 8.8. Hemoglobin 12.5. Platelets 263. Sodium 138. Potassium 4.0. Bicarb 23. BUN 19. Creatinine 0.51. Glucose 102. Viral screen was negative. Lipase 11. Amylase less than 30. AST 56. ALT 48. She was taken to the operating room and had undergone a full oratory laparotomy, sigmoid colectomy and end colostomy for a perforated sigmoid diverticulitis. She remained intubated and on the mechanical ventilator and transferred to the intensive care unit. Current vent to later settings are assist-control mode at a rate of 14, tidal line 350, FiO2 100% and a PEEP of 5. She is sedated on propofol at 20 mcg/kg/min. She has lactated Ringer's at 125 MLS per hour. She is on antibiotics in the form of Levaquin and Flagyl. Abdominal dressing is dry and intact. There is a left colostomy in place. Right radial arterial line in place. She is somewhat hypertensive and initiated on Cleviprex infusion 1 mg/h. Dilaudid for pain control. The patient is seen today December 09, 2023 in follow-up in the intensive care unit. She remains intubated on mechanical ventilator. Current settings are assist-control mode at a rate of 20, tidal line 350, FiO2 30% and a PEEP of 5. Morning blood gases reveal a pO2 of 165, pCO2 39 and a pH of 7.43. These were on FiO2 40%. Sedated on propofol at 20 mics per kilogram per minute. Lactated Ringer's at 125 MLS per hour. She remains on bronchodilators. Antibiotics in the form of cefepime and Flagyl. Heparin for DVT prophylaxis. Chest x-ray reveals no significant change. Evidence of COPD. The patient is seen today December 10, 2023 in follow-up in the intensive care unit. She is awake and alert in no acute distress. She is maintaining good O2 saturations in the 90s on room air. She has lactated Ringer's at 125 MLS per hour. Nasogastric tube remains in place. He is continued on DuoNeb ventilations, Pulmicort and perform scintillations, Singulair. NicoDerm patch in place. She remains on heparin for DVT prophylaxis. Antibiotics in the form of cefepime and Flagyl. Wound culture positive for gram-negative bacilli. White count 13.8. Hemoglobin 10.8. Platelets 255. Sodium 133. Potassium 3.8. Bicarb 24. BUN 20. Creatinine 0.80. Glucose 201 after treatment for hypoglycemia. Currently NPO. Chest x-ray reveals patchy density in the right lower lobe and slight increase in small basilar effusions. The patient is seen today December 11, 2023 in follow-up on the selective care unit. She was transferred out of the ICU yesterday. She is awake and alert in no acute distress. Sitting up in bed. Maintaining good O2 saturations in the 90s on room air. She remains NPO. She remains with a night nasogastric tube in place. She is D5.45 normal saline at 125 MLS per hour. Wound culture was positive for E. coli. Abdominal dressing dry and intact. Ostomy present, nonfunctioning thus far. Blood sugar 133. She is continued on DuoNeb ventilations, Pulmicort and Perforomist inhalations. NicoDerm patch applied. Utilizing NicoDerm gum. Antibiotics in the form of cefepime and Flagyl. Heparin for DVT prophylaxis. On today's evaluation of On today's evaluation of 12/12/2023, the patient is being seen for a follow-up. The patient is still recovering from her surgery. The patient is currently on room air oxygen. Noted the patient remains NPO. Bowel sounds are quite hypoactive and nearly absent and there is no functionality in her colostomy bag. No significant output has been noted. The patient denies having any nausea or vomiting. Some vague abdominal discomfort in the right lower quadrant area. Otherwise, she has no other new complaints. The surgical scar is dry clean and intact. The patient remains on IV cefepime and Flagyl. The patient is afebrile. Hemodynamically stable. BUN is at 6 with a creatinine of 0.38 and a potassium level is at 2.9 that needs to be replaced and the sodium levels at 132. WBC count of 13.2 with a hemoglobin 12.4. Patient is using the incentive spirometer. She is ambulating. No altered mentation. No other significant issues otherwise. NG tube was removed yesterday. As for the intra-abdominal wounds, it is growing anaerobic gram-negative bacilli in addition to E. coli and Streptococcus. The patient is afebrile. Antibiotic coverage is adequate for now. The patient is known to have previous history of RA, hypertension, hyperlipidemia, COPD and previous history of smoking. The patient was diagnosed having a perforated sigmoid diverticulitis and the patient has undergone exploratory laparotomy, sigmoid colectomy and end colostomy. On 12/13/2023, the patient is on room air oxygen and the patient is calm and comfo rtable. No significant respite distress. Bowel sounds are hypoactive. Nevertheless, the patient was able to pass stool in the colostomy bag. She continues to have some limited abdominal tenderness.She remains hemodynamically stable with a white cell count of 15.8 and a hemoglobin of 11.9 and his sodium level is at 135 with a potassium level of 2.9 and a BUN of 7 with a creatinine of 0.46. The patient remains on Flagyl and cefepime as a broad-spectrum antibiotic coverage as the patient has shown some anaerobic growth and E. coli and Streptococcus alphahemolytic in the abdominal cultures. In terms of her morning abdominal x-ray, it showed some nonspecific findings and there was a tiny left-sided pleural effusion. On today's evaluation of 12/14/2023, the patient is tolerating clear liquid diet. She is on room air oxygen. No significant respite distress. No cough or sputum production. No chest tightness or wheezing. No abdominal pain. Her colostomy is functional. She remains on broad-spectrum antibiotics. She is afebrile.There was because of 10.6 with a hemoglobin 10.8 and a platelet count of 274. BUN is at 8 with a creatinine of 0.4 and sodium levels at 130. Surgical wound is dry clean and intact. Colostomy is functional. ID is on the case. General surgery is on the case. She remains on room air oxygen. On 12/15/2023, the patient is doing well. Tolerating diet. Colostomy is functional. No signs of any significant respiratory distress. No fever or chills. No Abdominal pain. The white cell count 11 with a hemoglobin 11.4 and platelet count of 294. Sodium level is 132, potassium level of 3.6, BUN is at 10 with a creatinine of 0.5. Abdominal cultures are still positive for anaerobes gram-negative, E. coli and alphahemolytic strep and the patient remai ns on IV cefepime for now. The patient remains also on bronchodilators patient is currently on room air oxygen. She has a nicotine patch. She is on metoprolol 50 mg p.o. twice a day. She is also on heparin subcu for DVT prophylaxis. No other significant events. She feels much better compared to yesterday. Objective - Vital Signs Vital signs: Vital Signs Temp 97.6 F 12/15/23 08:00 Pulse 84 12/15/23 08:49 Resp 18 12/15/23 08:30 BP 159/76 12/15/23 08:00 Pulse Ox 95 12/15/23 08:00 FiO2 30 12/09/23 10:00 Intake & Output 12/14/23 12/15/23 12/15/23 18:59 06:59 18:59 Intake Total 518 118 Output Total 1275 200 Balance -757 -200 118 Intake: IV 100 metroNIDAZOLE-NS PMX 500 100 mg In Saline 1 100ml.bag @ 100 mls/hr IVPB Q8H ANN Rx#:[id number] Intake, IV Titration 300 Amount Cefepime 2 gm In Sodium 100 Chloride 0.9% 100 ml @ 25 mls/hr IVPB Q8HR ANN Rx# :[id number] Magnesium Sulfate-D5w Pmx 200 1 gm In Dextrose/Water 1 100ml.bag @ 100 mls/hr IVPB Q1H ANN Rx#: [id number] Oral 118 118 Output: Urine 650 200 Stool 625 Other: Voiding Method Indwelling Catheter Bedside Commode # Voids 1 ABP, PAP, CO, CI - Last Documented Arterial Blood Pressure 119/92 - Exam GENERAL EXAM: Awake, sitting up in bed, 78-year-old female, on room air, in no apparent distress. The patient is currently on room air oxygen. HEAD: Normocephalic. EYES: Sluggish reaction of pupils, equal size. NOSE: Clear with pink turbinates. THROAT: Nasogastric tube secured in place. No erythema or exudates. NECK: No masses, no JVD. CHEST: No chest wall deformity. LUNGS: Equal air entry with faint crackles in the posterior bases. CVS: S1 and S2 normal with no audible murmur, regular rhythm. ABDOMEN: Abdominal dressing dry and intact. Left abdominal ostomy output is present. Bowel sounds are hypoactive SPINE: No scoliosis or deformity SKIN: No rashes CENTRAL NERVOUS SYSTEM: Sedated, tone is normal in all 4 extremities. EXTREMITIES: Right radial arterial line in place there is no peripheral edema. No clubbing, no cyanosis. Peripheral pulses are intact. - Labs CBC & Chem 7: 12/15/23 08:31 12/15/23 08:31 Labs: Abnormal Lab Results - Last 24 Hours (Table) 12/14/23 12/14/23 12/14/23 Range/Units 08:50 10:40 11:32 WBC (3.8-10.6) k/uL RBC (3.80-5.40) m/uL Neutrophils # (1.3-7.7) k/uL Lymphocytes # (1.0-4.8) k/uL Sodium 130 L (137-145) mmol/L Creatinine 0.45 L (0.52-1.04) mg/dL POC Glucose (mg/dL) 157 H 146 H (70-110) mg/dL Calcium 7.4 L (8.4-10.2) mg/dL Magnesium 1.3 L (1.6-2.3) mg/dL C-Reactive Protein 5.3 H (<1.0) mg/dL 12/14/23 12/15/23 12/15/23 Range/Units 20:12 08:31 08:31 WBC 11.0 H (3.8-10.6) k/uL RBC 3.56 L (3.80-5.40) m/uL Neutrophils # 9.2 H (1.3-7.7) k/uL Lymphocytes # 0.8 L (1.0-4.8) k/uL Sodium 132 L (137-145) mmol/L Creatinine (0.52-1.04) mg/dL POC Glucose (mg/dL) 163 H (70-110) mg/dL Calcium 7.7 L (8.4-10.2) mg/dL Magnesium (1.6-2.3) mg/dL C-Reactive Protein (<1.0) mg/dL Assessment and Plan Plan: Severe acute abdominal pain secondary to perforated sigmoid diverticulitis. Status post exploratory laparotomy, sigmoid colectomy, end colostomy. Postoperative day # 7 There is output in the colostomy bag. Bowel sounds are hypoactive. Intra-abdominal wounds have shown anaerobic gram-negative bacillus and E. coli and Streptococcus, thrombolytic and the patient remains on a combination of cefepime and Flagyl.. The patient is currently clear liquid diet. Diet is being advanced gradually as the patient is able to tolerate the diet and her colostomy is functional and she does not have any significant abdominal pain. Acute hypoxemic respiratory failure secondary to above requiring prolonged ventilation postoperatively recovered and on room air Severe protein calorie malnutrition with a BMI of less than 20 kg/m, currently at 14.3 History of gastric ulcers and esophagitis History of rheumatoid arthritis History of chronic obstructive pulmonary disease History of chronic tobacco dependence History of hypertension History of hyperlipidemia History of gastroesophageal reflux disease Plan Gradually advance diet as tolerated the patient has good appetite and she is willing to eat more Continue using incentive spirometer Continue IV Flagyl and cefepime, abdominal wound cultures were noticed and the findings are essentially unchanged Monitor the bowel sounds and functionality of the colostomy, there is positive output in the colostomy is functional Feeding as per general surgery Increase mobility and level of activity Continue with [facility] Continue Perforomist and Pulmicort nebulized treatments twice a day Patient has a nicotine patch Patient is seeing Eric for pain control and her pain is under adequate control for now Heparin subcu for DVT prophylaxis Will continue to follow
--- NOTE | 2023-12-15 16:09 | P.PN ---
Subjective Progress Note Date: 12/15/23 Principal diagnosis: Reason for follow-up is perforated diverticulitis and abscess Patient is a 78-year-old female with a past medical history significant for COPD hypertension rheumatoid arthritis presenting to the ER for evaluation of epigastric abdominal pain, patient did have a CT abdominal pelvis concerning for free subsequently taken to the OR status post laparotomy with evidence of perforated sigmoid diverticulitis status post sigmoid colectomy and end colostomy. On today's evaluation that is 12/15/2023, the patient remains to be afebrile, patient is currently breathing comfortably on room air, the patient denies chest pain complaining of some cough but not bring up any sputum patient denies abdominal pain, no nausea no vomiting and did have output in her colostomy. Patient white count is 11.0, creatinine 0.55 Objective - Vital Signs Vital signs: Vital Signs Temp 98 F 12/15/23 12:00 Pulse 76 12/15/23 12:38 Resp 16 12/15/23 12:00 BP 147/84 12/15/23 12:00 Pulse Ox 95 12/15/23 08:00 FiO2 30 12/09/23 10:00 Intake & Output 12/14/23 12/15/23 12/15/23 18:59 06:59 18:59 Intake Total 518 118 Output Total 1275 200 Balance -757 -200 118 Weight 35.5 kg Intake: IV 100 metroNIDAZOLE-NS PMX 500 100 mg In Saline 1 100ml.bag @ 100 mls/hr IVPB Q8H ANN Rx#:[id number] Intake, IV Titration 300 Amount Cefepime 2 gm In Sodium 100 Chloride 0.9% 100 ml @ 25 mls/hr IVPB Q8HR ANN Rx# :[id number] Magnesium Sulfate-D5w Pmx 200 1 gm In Dextrose/Water 1 100ml.bag @ 100 mls/hr IVPB Q1H ANN Rx#: [id number] Oral 118 118 Output: Urine 650 200 Stool 625 Other: Voiding Method Indwelling Catheter Bedside Commode # Voids 1 ABP, PAP, CO, CI - Last Documented Arterial Blood Pressure 119/92 - Exam GENERAL DESCRIPTION: An elderly female lying in bed in no distress RESPIRATORY SYSTEM: Unlabored breathing , decreased breath sounds at bases HEART: S1 S2 regular rate and rhythm , ABDOMEN: Soft , mild tenderness EXTREMITIES: No edema feet - Labs CBC & Chem 7: 12/15/23 08:31 12/15/23 08:31 Labs: Abnormal Lab Results - Last 24 Hours (Table) 12/14/23 12/15/23 12/15/23 Range/Units 20:12 08:31 08:31 WBC 11.0 H (3.8-10.6) k/uL RBC 3.56 L (3.80-5.40) m/uL Neutrophils # 9.2 H (1.3-7.7) k/uL Lymphocytes # 0.8 L (1.0-4.8) k/uL Sodium 132 L (137-145) mmol/L POC Glucose (mg/dL) 163 H (70-110) mg/dL Calcium 7.7 L (8.4-10.2) mg/dL Assessment and Plan (1) Intra-abdominal abscess Current Visit: Yes Status: Acute Code(s): K65.1 - PERITONEAL ABSCESS SNOMED Code(s): 65441712 (2) Allergy to multiple antibiotics Current Visit: Yes Status: Acute Code(s): Z88.1 - ALLERGY STATUS TO OTHER ANTIBIOTIC AGENTS SNOMED Code(s): 110476997 (3) Perforated viscus Current Visit: Yes Status: Acute Code(s): R19.8 - OTH SYMPTOMS AND SIGNS INVOLVING THE DGSTV SYS AND ABDOMEN SNOMED Code(s): 703164966 Plan: 1patient presented to hospital with abdominal pain has been diagnosed with a perforated viscus in this patient was status post laparotomy with evidence of perforated sigmoid diverticulitis status post laparotomy sigmoid colectomy and end colostomy for likely organism need to cover will be enteric gram-negative both aerobes and anaerobes 2-patient with multiple antibiotic ALLERGIES that would limit the number of antibiotic safe to use 3-patient is afebrile and the patient white count has normalized, the patient abdominal culture has been finalized with E. coli that is sensitive pathogen along with strep and anaerobes 4patient is slowly clinical improving and will continue with cefepime and Flagyl while inpatient, with a plan to finish therapy with oral Ceftin and Flagyl Dictation was produced using [employer] dictation software. please excuse any grammatical, word or spelling errors. Time with Patient: Less than 30
[2023-12-15 16:18] LABS: Glucose,Whole Blood 101 mg/dL (70-110)
--- NOTE | 2023-12-15 17:24 | P.PN ---
Subjective Progress Note Date: 12/15/23 Principal diagnosis: Diverticulitis Patient doing well today. She is complaining of some sciatica discomforts. Requesting her baclofen. Tolerating regular diet. No significant abdominal pain currently. Objective - Vital Signs Vital signs: Vital Signs Temp 97.7 F 12/15/23 16:00 Pulse 68 12/15/23 16:32 Resp 16 12/15/23 16:00 BP 132/78 12/15/23 16:00 Pulse Ox 97 12/15/23 16:00 FiO2 30 12/09/23 10:00 Intake & Output 12/14/23 12/15/23 12/15/23 18:59 06:59 18:59 Intake Total 518 118 Output Total 1275 200 Balance -757 -200 118 Weight 35.5 kg Intake: IV 100 metroNIDAZOLE-NS PMX 500 100 mg In Saline 1 100ml.bag @ 100 mls/hr IVPB Q8H ANN Rx#:[id number] Intake, IV Titration 300 Amount Cefepime 2 gm In Sodium 100 Chloride 0.9% 100 ml @ 25 mls/hr IVPB Q8HR ANN Rx# :[id number] Magnesium Sulfate-D5w Pmx 200 1 gm In Dextrose/Water 1 100ml.bag @ 100 mls/hr IVPB Q1H ANN Rx#: [id number] Oral 118 118 Output: Urine 650 200 Stool 625 Other: Voiding Method Indwelling Catheter Bedside Commode Bedside Commode # Voids 1 ABP, PAP, CO, CI - Last Documented Arterial Blood Pressure 119/92 - Exam Abdomen: Soft, nondistended, mild tenderness, dressing clean and dry, ostomy functioning - Labs CBC & Chem 7: 12/15/23 08:31 12/15/23 08:31 Labs: Abnormal Lab Results - Last 24 Hours (Table) 12/14/23 12/15/23 12/15/23 Range/Units 20:12 08:31 08:31 WBC 11.0 H (3.8-10.6) k/uL RBC 3.56 L (3.80-5.40) m/uL Neutrophils # 9.2 H (1.3-7.7) k/uL Lymphocytes # 0.8 L (1.0-4.8) k/uL Sodium 132 L (137-145) mmol/L POC Glucose (mg/dL) 163 H (70-110) mg/dL Calcium 7.7 L (8.4-10.2) mg/dL Assessment and Plan (1) Perforated viscus Narrative/Plan: Patient doing better today. Add baclofen for pain. Continue regular diet. Con tinue antibiotics. Possible transfer to rehab tomorrow. Current Visit: Yes Status: Acute Code(s): R19.8 - OTH SYMPTOMS AND SIGNS INVOLVING THE DGSTV SYS AND ABDOMEN SNOMED Code(s): 570276481
[2023-12-15 20:03] LABS: Glucose,Whole Blood 149 mg/dL (70-110)
--- NOTE | 2023-12-15 20:36 | P.PN ---
Progress Note - Text Progress Note Date: 12/15/23 - Chief Complaint Abdominal pain - History of Present Illness This is a pleasant 78-year-old patient, chronic stable medical conditions include COPD, hypertension, rheumatoid arthritis. Patient is active smoker. Patient with 3 days been having increasing abdominal pain. Presented to the ER. CT scan showed free air. Patient was taken to the OR yesterday by Dr. Lentz. Underwent exploratory laparotomy. Found to have a perforated sigmoid d iverticulitis. Sigmoid colectomy with end colostomy was done. Today in the ICU: Extubated earlier today. 2 L nasal cannula. Has NG tube to suction. No output in the colostomy bag. Son at the bedside. Pain at the surgical site. December 10: Patient moved out of the ICU. NG tube to intermittent suction. Did not sleep well yesterday. States when she tries to close her eyes she starts hallucinating. Given one-time dose of Haldol. Having significant pain at the operative site. Pain medications per surgical team. No output through colostomy bag. Discussed with nurse. Sons at the bedside. Also added Nicorette gum as needed. Hypoglycemia: Change IV fluids to D5.45. Patient on IV cefepime and IV Flagyl. December 11: NG tube in place. Plan for it to be discontinued this afternoon. Very little output from the colostomy bag. Did sleep her last night.'s some hallucinations. Discussed with the patient's son. Try to cut back on IV narcotics balance between pain control and side effects. December 12: NG tube was discontinued yesterday. Remains NPO per surgery. No output from the colostomy bag. Did not sleep well last night. Chewing gum ordered. Remains on IV cefepime. IV Flagyl. For blood pressure start Catapres patch 0.2. December 13: Patient be started on clear liquids by surgery. Some stool from the colostomy bag. Pain better. Pain switched over to oral pain medications. Abdominal wound cultures growing E. coli and alphahemolytic Streptococcus. Remains on IV cefepime and IV Flagyl. Abdominal pain better. December 14: Patient having dark stool output through the colostomy bag. Did sit up in a chair. On full liquid diet. Patient requested to have a home dose of Percocet as opposed to Ramona. Ordered. Blood pressure running high. Increase Lopressor to 50 mg twice daily. December 15: Patient advance to low fiber diet today. Eating some. Abdominal pain much better. Colostomy bag working. core worker looking into discharge planning. Active Medications Albuterol Sulfate (Albuterol Nebulized 2.5 Mg/3 Ml) 2.5 mg INHALATION RT-Q4H PRN PRN Reason: Shortness Of Breath Albuterol/Ipratropium (Ipratropium-Albuterol 3 Ml Neb) 3 ml INHALATION RT-Q2H PRN PRN Reason: Shortness Of Breath Or Wheezing Albuterol/Ipratropium (Ipratropium-Albuterol 3 Ml Neb) 3 ml INHALATION RT-QID [facility] Last Admin: 12/15/23 20:24 Dose: 3 ml Atorvastatin Calcium (Atorvastatin 20 Mg Tab) 20 mg PO DAILY [facility] Last Admin: 12/15/23 08:54 Dose: 20 mg Baclofen (Baclofen 10 Mg Tab) 10 mg PO [facility] Benzocaine (Benzocaine Dry Prong 1 Can) 1 spray MUCOUS MEM QID PRN; Protocol PRN Reason: Mouth Irritation Last Admin: 12/10/23 00:20 Dose: 1 spray Benzocaine/Menthol (Benzocaine/Menthol Lozeng 1 Each Lozenge) 1 each MUCOUS MEM Q4HR PRN PRN Reason: Sore Throat Budesonide (Budesonide 1 Mg/2 Ml Nebu) 1 mg INHALATION RT-BID [facility] Last Admin: 12/15/23 20:24 Dose: 1 mg Clonidine HCl (Clonidine 0.2 Mg/24hr Patch) 1 patch TRANSDERM Q7D [facility] Last Admin: 12/12/23 17:17 Dose: 1 patch Dextrose/Water (Dextrose 50% Syringe 50 Ml) 25 ml IVP PER PROTOCOL PRN; Protocol PRN Reason: Hypoglycemia Last Admin: 12/10/23 05:16 Dose: 25 ml Dextrose/Water (Dextrose 50% Syringe 50 Ml) 50 ml IVP PER PROTOCOL PRN; Protocol PRN Reason: Hypoglycemia Formoterol Fumarate (Formoterol Fumarate 20 Mcg/2 Ml Nebu) 20 mcg INHALATION RT-BID [facility] Last Admin: 12/15/23 20:24 Dose: 20 mcg Heparin Sodium (Porcine) (Heparin Sodium,Porcine 5,000 Unit/Ml 1 Ml Vial) 5,000 unit SQ Q8HR [facility] Last Admin: 12/15/23 14:57 Dose: 5,000 unit Hydroxychloroquine Sulfate (Hydroxychloroquine Sulfate 200 Mg Tab) 200 mg PO BID [facility] Last Admin: 12/15/23 08:54 Dose: 200 mg Lactated Ringer's (Lactated Ringers) 1,000 mls @ 75 mls/hr IV .[id number] [facility] Last Admin: 12/15/23 04:41 Dose: Not Given Cefepime HCl 2 gm/ Sodium (Chloride) 100 mls @ 25 mls/hr IVPB Q12HR [facility]; Protocol Ketorolac Tromethamine (Ketorolac 15 Mg/Ml 1 Ml Vial) 15 mg IVP Q6HR [facility] Stop: 12/17/23 14:04 Last Admin: 12/15/23 17:27 Dose: 15 mg Metoprolol Tartrate (Metoprolol Tartrate 5 Mg/5 Ml Vial) 5 mg IVP Q6HR PRN PRN Reason: Blood Pressure - High Last Admin: 12/12/23 09:52 Dose: 5 mg Metoprolol Tartrate (Metoprolol Tartrate 50 Mg Tab) 50 mg PO BID [facility] Last Admin: 12/15/23 08:54 Dose: 50 mg Miscellaneous Information (Magnesium Replacement Protocol 1 Each Misc) 1 each MISCELLANE DAILY PRN; Protocol PRN Reason: Per Protocol Miscellaneous Information (Potassium Replacement Protocol 1 Each Misc) 1 each MISCELLANE DAILY PRN; Protocol PRN Reason: Per Protocol Montelukast Sodium (Montelukast 10 Mg Tab) 10 mg PO DAILY [facility] Last Admin: 12/15/23 08:54 Dose: 10 mg Naloxone HCl (Naloxone 0.4 Mg/Ml 1 Ml Vial) 0.2 mg IV Q2M PRN PRN Reason: Opioid Reversal Nicotine (Nicotine 21mg/24hr Patch) 1 patch TRANSDERM DAILY [facility] Last Admin: 12/15/23 08:54 Dose: 1 patch Nicotine Polacrilex (Nicotine Gum (Polacrilex) 2 Mg Gum) 2 mg BUCCAL Q4HR PRN PRN Reason: Nicotine Cravings Oxycodone/Acetaminophen (Oxycodone-Apap 7.5-325mg 1 Each Tab) 1 each PO Q6H PRN PRN Reason: Pain Last Admin: 12/15/23 20:11 Dose: 1 each Pantoprazole Sodium (Pantoprazole 40 Mg Tablet) 40 mg PO AC-BID [facility] Last Admin: 12/15/23 14:57 Dose: 40 mg Temazepam (Temazepam 15 Mg Cap) 15 mg PO HS PRN PRN Reason: Insomnia Last Admin: 12/14/23 22:06 Dose: 15 mg Social history: Patient been smoking for many years. Was up to 4 packs a day. Now down to a pack a day. Works at [employer] Lives with her son. Physical examination: VITAL SIGNS: 98, 80, 16, 160/70, 97% room air GENERAL: Up in a chair, feeling better EYES: Pupils equal. Conjunctiva micheal l. HEENT: External appearance of nose and ears normal, oral cavity grossly normal. Diminished hearing in the right ear. NECK: JVD not raised; masses not palpable. HEART: First and second heart sounds are normal; no edema. LUNGS:[ Respiratory rate increased, diminished breath sounds. ABDOMEN: Soft, mild tenderness r, no guarding rigidity, liver spleen not palpable, no masses palpable. Left-sided colostomy bag-some dark stool. PSYCH: [Alert and oriented x3; mood and affect anxious. MUSCULOSKELETAL:No Clubbing/cyanosis;muscles-grossly intact INVESTIGATIONS, reviewed in the clinical context: December 15: White count 11 hemoglobin 11.4 potassium 3.6 creatinine 0.55 Abdominal wound culture: E. coli and alphahemolytic Streptococcus. December 09: White count 10.8 hemoglobin 10.9 platelets 254 sodium 135 potassium 3.8 BUN 20 creatinine 0.61 Chest x-ray film personally reviewed by me-hyperinflation Telemetry strip bedside monitor: Personally reviewed by me. Sinus rhythm CT scan abdomen pelvis: Moderate prominence of the stomach. Severe wall thickening of the gastric antrum. Distal colonic diverticulosis. Free air identified anterior to the bladder. Assessment and plan: -Acute sigmoid diverticulitis with perforation. Cultures growing E. coli and alphahemolytic Streptococcus Patient underwent sigmoid resection and formation of her colostomy on December [address] Lentz. Low fiber diet today. [NG tube discontinued] IV cefepime and IV Flagyl. -Postop surgical site pain.: Better Patient being so show to home dose of Percocet -Severe hypokalemia: Replaced Replace potassium -Possible secondary peritonitis from hollow viscus perforation IV cefepime and IV Flagyl. ID following -COPD and a current smoker DuoNeb 3 times daily. Singulair.. Breztri inhaler -Chronic nicotine dependence, cigarette smoker Nicotine patch -Hyperlipidemia Lipitor 20 mg a day -Severe protein calorie malnutrition. BMI 18.3. Dietitian on the case -Chronic muscle spasm Baclofen as needed -Peptic ulcer disease PPI -Hypoglycemia from poor oral intake: Better -Essential hypertension. Better controlled Lopressor to 50 mg twice daily -Insomnia with hallucinations. Restoril. Doing better. Diet has been advanced. Blood pressure better controlled. Thank you Dr. Lentz Past Medical History Past Medical History: COPD, Hypertension, Rheumatoid Arthritis (RA) Additional Past Medical History / Comment(s): bleeding ulcer History of Any Multi-Drug Resistant Organisms: None Reported Past Surgical History: Tubal Ligation Additional Past Surgical History / Comment(s): Eye surgery (cataracts removed). Past Anesthesia/Blood Transfusion Reactions: No Reported Reaction Past Psychological History: No Psychological Hx Reported Smoking Status: Current every day smoker Past Alcohol Use History: Rare Past Drug Use History: None Reported
[2023-12-15] MEDS: BACLOFEN 10 MG TAB PO SCH (23:06)
[2023-12-15] MEDS: CEFEPIME 2 GM in SODIUM CHLORIDE 0.9% 100 ML IVPB SCH (23:07)
[2023-12-16 05:59] LABS: Glucose,Whole Blood 86 mg/dL (70-110)
[2023-12-16 11:27] LABS: Glucose,Whole Blood 94 mg/dL (70-110)
--- NOTE | 2023-12-16 11:50 | P.PN ---
Subjective Progress Note Date: 12/16/23 CHIEF COMPLAINT: Perforated sigmoid diverticulitis HISTORY OF PRESENT ILLNESS: Patient is postop day #7 status post exploratory laparotomy, sigmoid colectomy and end colostomy. Patient reporting increased abdominal pain and bloating today. Patient has pain across the abdomen. She has just received pain medicine. Ostomy is functioning. She denies any nausea or vomiting. She did start her regular diet yesterday. Afebrile. WBC elevated at 11 yesterday. PHYSICAL EXAM: VITAL SIGNS: Reviewed. GENERAL: Well-developed in no acute distress. ABDOMEN: Distended. Tender with palpation. Incision dressing clean dry and intact with janet in place. Ostomy with stool. NEUROLOGIC: Alert and oriented. Cranial nerves II through XII grossly intact. ASSESSMENT: 1. Perforated sigmoid diverticulitis 2. Urinary retention resolved 3. Hypokalemia improved 4. Hypomagnesemia improved PLAN: -Discussed findings with surgeon. Further recommendations forthcoming per surgeon -Check CBC -Downgrade diet to n.p.o. -Continue antibiotics -Encourage patient to use incentive spirometer -Patient does have insurance authorization which is good until 10/19/2024 for ECF when ready for discharge -GI prophylaxis Protonix DVT prophylaxis subcu heparin Physician C++ Quant Developer note has been reviewed by physician. Signing provider agrees with the documented findings, assessment, and plan of care. I have personally seen and examined the patient, reviewed the [employer] /PAs history, exam and MDM and agree with the assessment and plan as written. Based on total visit time, I have performed more than 50% of the visit. As above: Patient having more vague abdominal discomfort today. Appetite diminished. Feels somewhat bloated. Ostomy has stool in it but seems less than yesterday. Suspect possible ileus. Will check CT abdomen pelvis to evaluate for possible abscess after recent Lucio's procedure for perforated sigmoid colon. Keep n.p.o. for now. Continue antibiotics. Objective - Vital Signs Vital signs: Vital Signs Temp 97.9 F 12/16/23 07:51 Pulse 76 12/16/23 11:26 Resp 18 12/16/23 11:26 BP 139/65 12/16/23 11:26 Pulse Ox 97 12/16/23 11:26 FiO2 30 12/09/23 10:00 Intake & Output 12/15/23 12/16/23 12/16/23 18:59 06:59 18:59 Intake Total 236 118 Output Total 660 200 Balance 236 -660 -82 Weight 35.5 kg Intake: Oral 236 118 Output: Urine 660 200 Other: Voiding Method Bedside Commode Bedpan Bedpan # Voids 1 ABP, PAP, CO, CI - Last Documented Arterial Blood Pressure 119/92 - Labs CBC & Chem 7: 12/15/23 08:31 12/15/23 08:31 Labs: Abnormal Lab Results - Last 24 Hours (Table) 12/15/23 Range/Units 20:02 POC Glucose (mg/dL) 149 H (70-110) mg/dL
[2023-12-16 12:25] LABS: Basophils # (A) 0.1 k/uL (0-0.2); Basophils % (A) 0 %; Eosinophils # (A) 0.2 k/uL (0-0.7); Eosinophils % (A) 2 %; HCT 35.7 % (34.0-46.0); HGB 11.9 gm/dL (11.4-16.0); Lymphocytes # (A) 0.7 k/uL (1.0-4.8); Lymphocytes % (A) 5 %; MCH 32.3 pg (25.0-35.0); MCHC 33.3 g/dL (31.0-37.0); MCV 96.9 fL (80.0-100.0); Mean Platelet Volume 8.5; Monocytes # (A) 0.5 k/uL (0-1.0); Monocytes % (A) 4 %; Neutrophils # (A) 11.2 k/uL (1.3-7.7); Neutrophils % (A) 88 %; Platelet Count 339 k/uL (150-450); RBC 3.68 m/uL (3.80-5.40); RDW 12.5 % (11.5-15.5); WBC 12.7 k/uL (3.8-10.6)
--- NOTE | 2023-12-16 13:04 | P.PN ---
Subjective Progress Note Date: 12/16/23 This is a 78-year-old female patient with a history of rheumatoid arthritis, hypertension, hyperlipidemia, gastroesophageal reflux disease chronic obstructive pulmonary disease with chronic and ongoing tobacco dependence. She presented to the emergency room early this morning with complaints of severe e pigastric abdominal pain. She has a prior history of gastric ulcers and frequently has abdominal pain. ET scan of the abdomen revealed evidence of free air. Gastric or proximal duodenal ulcer perforation was suspected given severe gastric antral wall thickening. Chest x-ray revealed no acute pulmonary process. White count 8.8. Hemoglobin 12.5. Platelets 263. Sodium 138. Potassium 4.0. Bicarb 23. BUN 19. Creatinine 0.51. Glucose 102. Viral screen was negative. Lipase 11. Amylase less than 30. AST 56. ALT 48. She was taken to the operating room and had undergone a full oratory laparotomy, sigmoid colectomy and end colostomy for a perforated sigmoid diverticulitis. She remained intubated and on the mechanical ventilator and transferred to the intensive care unit. Current vent to later settings are assist-control mode at a rate of 14, tidal line 350, FiO2 100% and a PEEP of 5. She is sedated on propofol at 20 mcg/kg/min. She has lactated Ringer's at 125 MLS per hour. She is on antibiotics in the form of Levaquin and Flagyl. Abdominal dressing is dry and intact. There is a left colostomy in place. Right radial arterial line in place. She is somewhat hypertensive and initiated on Cleviprex infusion 1 mg/h. Dilaudid for pain control. The patient is seen today December 09, 2023 in follow-up in the intensive care unit. She remains intubated on mechanical ventilator. Current settings are assist-control mode at a rate of 20, tidal line 350, FiO2 30% and a PEEP of 5. Morning blood gases reveal a pO2 of 165, pCO2 39 and a pH of 7.43. These were on FiO2 40%. Sedated on propofol at 20 mics per kilogram per minute. Lactated Ringer's at 125 MLS per hour. She remains on bronchodilators. Antibiotics in the form of cefepime and Flagyl. Heparin for DVT prophylaxis. Chest x-ray reveals no significant change. Evidence of COPD. The patient is seen today December 10, 2023 in follow-up in the intensive care unit. She is awake and alert in no acute distress. She is maintaining good O2 saturations in the 90s on room air. She has lactated Ringer's at 125 MLS per hour. Nasogastric tube remains in place. He is continued on DuoNeb ventilations, Pulmicort and perform scintillations, Singulair. NicoDerm patch in place. She remains on heparin for DVT prophylaxis. Antibiotics in the form of cefepime and Flagyl. Wound culture positive for gram-negative bacilli. White count 13.8. Hemoglobin 10.8. Platelets 255. Sodium 133. Potassium 3.8. Bicarb 24. BUN 20. Creatinine 0.80. Glucose 201 after treatment for hypoglycemia. Currently NPO. Chest x-ray reveals patchy density in the right lower lobe and slight increase in small basilar effusions. The patient is seen today December 11, 2023 in follow-up on the selective care unit. She was transferred out of the ICU yesterday. She is awake and alert in no acute distress. Sitting up in bed. Maintaining good O2 saturations in the 90s on room air. She remains NPO. She remains with a night nasogastric tube in place. She is D5.45 normal saline at 125 MLS per hour. Wound culture was positive for E. coli. Abdominal dressing dry and intact. Ostomy present, nonfunctioning thus far. Blood sugar 133. She is continued on DuoNeb ventilations, Pulmicort and Perforomist inhalations. NicoDerm patch applied. Utilizing NicoDerm gum. Antibiotics in the form of cefepime and Flagyl. Heparin for DVT prophylaxis. On today's evaluation of On today's evaluation of 12/12/2023, the patient is being seen for a follow-up. The patient is still recovering from her surgery. The patient is currently on room air oxygen. Noted the patient remains NPO. Bowel sounds are quite hypoactive and nearly absent and there is no functionality in her colostomy bag. No significant output has been noted. The patient denies having any nausea or vomiting. Some vague abdominal discomfort in the right lower quadrant area. Otherwise, she has no other new complaints. The surgical scar is dry clean and intact. The patient remains on IV cefepime and Flagyl. The patient is afebrile. Hemodynamically stable. BUN is at 6 with a creatinine of 0.38 and a potassium level is at 2.9 that needs to be replaced and the sodium levels at 132. WBC count of 13.2 with a hemoglobin 12.4. Patient is using the incentive spirometer. She is ambulating. No altered mentation. No other significant issues otherwise. NG tube was removed yesterday. As for the intra-abdominal wounds, it is growing anaerobic gram-negative bacilli in addition to E. coli and Streptococcus. The patient is afebrile. Antibiotic coverage is adequate for now. The patient is known to have previous history of RA, hypertension, hyperlipidemia, COPD and previous history of smoking. The patient was diagnosed having a perforated sigmoid diverticulitis and the patient has undergone exploratory laparotomy, sigmoid colectomy and end colostomy. On 12/13/2023, the patient is on room air oxygen and the patient is calm and comfo rtable. No significant respite distress. Bowel sounds are hypoactive. Nevertheless, the patient was able to pass stool in the colostomy bag. She continues to have some limited abdominal tenderness.She remains hemodynamically stable with a white cell count of 15.8 and a hemoglobin of 11.9 and his sodium level is at 135 with a potassium level of 2.9 and a BUN of 7 with a creatinine of 0.46. The patient remains on Flagyl and cefepime as a broad-spectrum antibiotic coverage as the patient has shown some anaerobic growth and E. coli and Streptococcus alphahemolytic in the abdominal cultures. In terms of her morning abdominal x-ray, it showed some nonspecific findings and there was a tiny left-sided pleural effusion. On today's evaluation of 12/14/2023, the patient is tolerating clear liquid diet. She is on room air oxygen. No significant respite distress. No cough or sputum production. No chest tightness or wheezing. No abdominal pain. Her colostomy is functional. She remains on broad-spectrum antibiotics. She is afebrile.There was because of 10.6 with a hemoglobin 10.8 and a platelet count of 274. BUN is at 8 with a creatinine of 0.4 and sodium levels at 130. Surgical wound is dry clean and intact. Colostomy is functional. ID is on the case. General surgery is on the case. She remains on room air oxygen. On 12/15/2023, the patient is doing well. Tolerating diet. Colostomy is functional. No signs of any significant respiratory distress. No fever or chills. No Abdominal pain. The white cell count 11 with a hemoglobin 11.4 and platelet count of 294. Sodium level is 132, potassium level of 3.6, BUN is at 10 with a creatinine of 0.5. Abdominal cultures are still positive for anaerobes gram-negative, E. coli and alphahemolytic strep and the patient remai ns on IV cefepime for now. The patient remains also on bronchodilators patient is currently on room air oxygen. She has a nicotine patch. She is on metoprolol 50 mg p.o. twice a day. She is also on heparin subcu for DVT prophylaxis. No other significant events. She feels much better compared to yesterday. On 12/16/2023, I am seeing the patient for a follow-up. The patient is doing well. Tolerating clear liquid diet. Colostomy is functional. No significant complaints other than some occasional abdominal discomfort and tenderness. Surgical wound is clean dry and intact at this point in time. WBC count of 12.7 with a hemoglobin 11.9 and platelet count of 339. Blood sugars at 94. Remains on the same antibiotic coverage. Remains on bronchodilators. Continues to use incentive spirometer. She has a nicotine patch. No other significant events. She is able to transition to a chair and she is doing some limited amount of mobility. Her body mass index is 14.3. Objective - Vital Signs Vital signs: Vital Signs Temp 97.9 F 12/16/23 07:51 Pulse 72 12/16/23 07:51 Resp 18 12/16/23 07:51 BP 161/84 12/16/23 07:51 Pulse Ox 97 12/16/23 07:51 FiO2 30 12/09/23 10:00 Intake & Output 12/15/23 12/16/23 12/16/23 18:59 06:59 18:59 Intake Total 236 Output Total 660 200 Balance 236 -660 -200 Weight 35.5 kg Intake: Oral 236 Output: Urine 660 200 Other: Voiding Method Bedside Commode Bedpan # Voids 1 ABP, PAP, CO, CI - Last Documented Arterial Blood Pressure 119/92 - Exam GENERAL EXAM: Awake, sitting up in bed, 78-year-old female, on room air, in no apparent distress. The patient is currently on room air oxygen. HEAD: Normocephalic. EYES: Sluggish reaction of pupils, equal size. NOSE: Clear with pink turbinates. THROAT: Nasogastric tube secured in place. No erythema or exudates. NECK: No masses, no JVD. CHEST: No chest wall deformity. LUNGS: Equal air entry with faint crackles in the posterior bases. CVS: S1 and S2 normal with no audible murmur, regular rhythm. ABDOMEN: Abdominal dressing dry and intact. Left abdominal ostomy output is present. Bowel sounds are hypoactive SPINE: No scoliosis or deformity SKIN: No rashes CENTRAL NERVOUS SYSTEM: Sedated, tone is normal in all 4 extremities. EXTREMITIES: Right radial arterial line in place there is no peripheral edema. No clubbing, no cyanosis. Peripheral pulses are intact. - Labs CBC & Chem 7: 12/16/23 11:53 /06/30 08:31 Labs: Abnormal Lab Results - Last 24 Hours (Table) 12/15/23 12/15/23 Range/Units 08:31 20:02 Sodium 132 L (137-145) mmol/L POC Glucose (mg/dL) 149 H (70-110) mg/dL Calcium 7.7 L (8.4-10.2) mg/dL Assessment and Plan Plan: Severe acute abdominal pain secondary to perforated sigmoid diverticulitis. Status post exploratory laparotomy, sigmoid colectomy, end colostomy. Postope rative day # 8 there is output in the colostomy bag. Bowel sounds are hypoactive. Intra-abdominal wounds have shown anaerobic gram-negative bacillus and E. coli and Streptococcus, thrombolytic and the patient remains on a combination of cefepime and Flagyl.. The patient is currently clear liquid diet. Diet is being advanced gradually as the patient is able to tolerate the diet and her colostomy is functiona Acute hypoxemic respiratory failure secondary to above requiring prolonged ventilation postoperatively recovered and on room air Severe protein calorie malnutrition with a BMI of less than 20 kg/m, currently at 14.3 History of gastric ulcers and esophagitis History of rheumatoid arthritis History of chronic obstructive pulmonary disease History of chronic tobacco dependence History of hypertension History of hyperlipidemia History of gastroesophageal reflux disease Plan Continues to gradually advance her diet Increase mobility Patient is currently on room air oxygen Colostomy is functional Continue using incentive spirometer Continue IV Flagyl and cefepime, abdominal wound cultures were noticed and the findings are essentially unchanged Monitor the bowel sounds and functionality of the colostomy, there is positive output in the colostomy is functional Feeding as per general surgery Increase mobility and level of activity Continue with Luis A updrafts Continue Perforomist and Pulmicort nebulized treatments twice a day Patient has a nicotine patch Patient is seeing Eric for pain control and her pain is under adequate control for now Heparin subcu for DVT prophylaxis Will continue to follow
[2023-12-16] MEDS: IOPAMIDOL CONTRAST (ORAL USE) VIAL PO PRN (13:05)
--- NOTE | 2023-12-16 15:11 | P.PN ---
Progress Note - Text Progress Note Date: 12/16/23 - Chief Complaint Abdominal pain - History of Present Illness This is a pleasant 78-year-old patient, chronic stable medical conditions include COPD, hypertension, rheumatoid arthritis. Patient is active smoker. Patient with 3 days been having increasing abdominal pain. Presented to the ER. CT scan showed free air. Patient was taken to the OR yesterday by Dr. Lentz. Underwent exploratory laparotomy. Found to have a perforated sigmoid d iverticulitis. Sigmoid colectomy with end colostomy was done. Today in the ICU: Extubated earlier today. 2 L nasal cannula. Has NG tube to suction. No output in the colostomy bag. Son at the bedside. Pain at the surgical site. December 10: Patient moved out of the ICU. NG tube to intermittent suction. Did not sleep well yesterday. States when she tries to close her eyes she starts hallucinating. Given one-time dose of Haldol. Having significant pain at the operative site. Pain medications per surgical team. No output through colostomy bag. Discussed with nurse. Sons at the bedside. Also added Nicorette gum as needed. Hypoglycemia: Change IV fluids to D5.45. Patient on IV cefepime and IV Flagyl. December 11: NG tube in place. Plan for it to be discontinued this afternoon. Very little output from the colostomy bag. Did sleep her last night.'s some hallucinations. Discussed with the patient's son. Try to cut back on IV narcotics balance between pain control and side effects. December 12: NG tube was discontinued yesterday. Remains NPO per surgery. No output from the colostomy bag. Did not sleep well last night. Chewing gum ordered. Remains on IV cefepime. IV Flagyl. For blood pressure start Catapres patch 0.2. December 13: Patient be started on clear liquids by surgery. Some stool from the colostomy bag. Pain better. Pain switched over to oral pain medications. Abdominal wound cultures growing E. coli and alphahemolytic Streptococcus. Remains on IV cefepime and IV Flagyl. Abdominal pain better. December 14: Patient having dark stool output through the colostomy bag. Did sit up in a chair. On full liquid diet. Patient requested to have a home dose of Percocet as opposed to [place]. Ordered. Blood pressure running high. Increase Lopressor to 50 mg twice daily. December 15: Patient advance to low fiber diet today. Eating some. Abdominal pain much better. Colostomy bag working. personnel worker looking into discharge planning. December 16: Patient complaining of increasing abdominal pain. More distention. Some stool from the colostomy bag. Patient made NPO. On antibiotics. CT scan abdomen ordered. Active Medications Albuterol Sulfate (Albuterol Nebulized 2.5 Mg/3 Ml) 2.5 mg INHALATION RT-Q4H PRN PRN Reason: Shortness Of Breath Albuterol/Ipratropium (Ipratropium-Albuterol 3 Ml Neb) 3 ml INHALATION RT-Q2H PRN PRN Reason: Shortness Of Breath Or Wheezing Albuterol/Ipratropium (Ipratropium-Albuterol 3 Ml Neb) 3 ml INHALATION RT-QID [facility] Last Admin: 12/16/23 12:07 Dose: Not Given Atorvastatin Calcium (Atorvastatin 20 Mg Tab) 20 mg PO DAILY [facility] Last Admin: 12/16/23 08:40 Dose: 20 mg Baclofen (Baclofen 10 Mg Tab) 10 mg PO HS [facility] Last Admin: 12/15/23 23:06 Dose: 10 mg Benzocaine (Benzocaine [place] 1 Can) 1 spray MUCOUS MEM QID PRN; Protocol PRN Reason: Mouth Irritation Last Admin: 12/10/23 00:20 Dose: 1 spray Benzocaine/Menthol (Benzocaine/Menthol Lozeng 1 Each Lozenge) 1 each MUCOUS MEM Q4HR PRN PRN Reason: Sore Throat Budesonide (Budesonide 1 Mg/2 Ml Nebu) 1 mg INHALATION RT-BID [facility] Last Admin: 12/16/23 09:44 Dose: 1 mg Clonidine HCl (Clonidine 0.2 Mg/24hr Patch) 1 patch TRANSDERM Q7D [facility] Last Admin: 12/12/23 17:17 Dose: 1 patch Dextrose/Water (Dextrose 50% Syringe 50 Ml) 25 ml IVP PER PROTOCOL PRN; Protocol PRN Reason: Hypoglycemia Last Admin: 12/10/23 05:16 Dose: 25 ml Dextrose/Water (Dextrose 50% Syringe 50 Ml) 50 ml IVP PER PROTOCOL PRN; Protocol PRN Reason: Hypoglycemia Formoterol Fumarate (Formoterol Fumarate 20 Mcg/2 Ml Nebu) 20 mcg INHALATION RT-BID [facility] Last Admin: 12/16/23 09:44 Dose: 20 mcg Heparin Sodium (Porcine) (Heparin Sodium,Porcine 5,000 Unit/Ml 1 Ml Vial) 5,000 unit SQ Q8HR [facility] Last Admin: 12/16/23 08:39 Dose: 5,000 unit Hydroxychloroquine Sulfate (Hydroxychloroquine Sulfate 200 Mg Tab) 200 mg PO BID [facility] Last Admin: 12/16/23 08:40 Dose: 200 mg Lactated Ringer's (Lactated Ringers) 1,000 mls @ 75 mls/hr IV .[id number] [facility] Last Admin: 12/16/23 06:04 Dose: Not Given Cefepime HCl 2 gm/ Sodium (Chloride) 100 mls @ 25 mls/hr IVPB Q12HR [facility]; Protocol Last Admin: 12/16/23 08:39 Dose: 25 mls/hr Ketorolac Tromethamine (Ketorolac 15 Mg/Ml 1 Ml Vial) 15 mg IVP Q6HR [facility] Stop: 12/17/23 14:04 Last Admin: 12/16/23 11:18 Dose: 15 mg Metoprolol Tartrate (Metoprolol Tartrate 5 Mg/5 Ml Vial) 5 mg IVP Q6HR PRN PRN Reason: Blood Pressure - High Last Admin: 12/12/23 09:52 Dose: 5 mg Metoprolol Tartrate (Metoprolol Tartrate 50 Mg Tab) 50 mg PO BID [facility] Last Admin: 12/16/23 08:40 Dose: 50 mg Miscellaneous Information (Magnesium Replacement Protocol 1 Each Misc) 1 each MISCELLANE DAILY PRN; Protocol PRN Reason: Per Protocol Miscellaneous Information (Potassium Replacement Protocol 1 Each Misc) 1 each MISCELLANE DAILY PRN; Protocol PRN Reason: Per Protocol Montelukast Sodium (Montelukast 10 Mg Tab) 10 mg PO DAILY [facility] Last Admin: 12/16/23 08:40 Dose: 10 mg Naloxone HCl (Naloxone 0.4 Mg/Ml 1 Ml Vial) 0.2 mg IV Q2M PRN PRN Reason: Opioid Reversal Nicotine (Nicotine 21mg/24hr Patch) 1 patch TRANSDERM DAILY [facility] Last Admin: 12/16/23 08:40 Dose: 1 patch Nicotine Polacrilex (Nicotine Gum (Polacrilex) 2 Mg Gum) 2 mg BUCCAL Q4HR PRN PRN Reason: Nicotine Cravings Oxycodone/Acetaminophen (Oxycodone-Apap 7.5-325mg 1 Each Tab) 1 each PO Q6H PRN PRN Reason: Pain Last Admin: 12/16/23 09:55 Dose: 1 each Pantoprazole Sodium (Pantoprazole 40 Mg Tablet) 40 mg PO AC-BID [facility] Last Admin: 12/16/23 06:04 Dose: 40 mg Temazepam (Temazepam 15 Mg Cap) 15 mg PO HS PRN PRN Reason: Insomnia Last Admin: 12/15/23 23:36 Dose: 15 mg Social history: Patient been smoking for many years. Was up to 4 packs a day. Now down to a pack a day. Works at [employer]. Lives with her son. Physical examination: VITAL SIGNS: Afebrile, 76, 18, 139/65, 97% room air GENERAL: Reclining in bed, uncomfortable EYES: Pupils equal. Conjunctiva normal HEENT: External appearance of nose and ears normal, oral cavity grossly normal. Diminished hearing in the right ear. NECK: JVD not raised; masses not palpable. HEART: First and second heart sounds are normal; no edema. LUNGS:[ Respiratory rate increased, diminished breath sounds. ABDOMEN: Soft, increased d tenderness, distention , no guarding rigidity, liver spleen not palpable, no masses palpable. Left-sided colostomy bag-some dark stool. PSYCH: [Alert and oriented x3; mood and affect anxious. MUSCULOSKELETAL:No Clubbing/cyanosis;muscles-grossly intact INVESTIGATIONS, reviewed in the clinical context: December 16: White count 12.7 hemoglobin 11.9 December 15: White count 11 hemoglobin 11.4 potassium 3.6 creatinine 0.55 Abdominal wound culture: E. coli and alphahemolytic Streptococcus. December 09: White count 10.8 hemoglobin 10.9 platelets 254 sodium 135 potassium 3.8 BUN 20 creatinine 0.61 Chest x-ray film personally reviewed by me-hyperinflation Telemetry strip bedside monitor: Personally reviewed by me. Sinus rhythm CT scan abdomen pelvis: Moderate prominence of the stomach. Severe wall thickening of the gastric antrum. Distal colonic diverticulosis. Free air identified anterior to the bladder. Assessment and plan: -Acute sigmoid diverticulitis with perforation. Cultures growing E. coli and alphahemolytic Streptococcus: Worsening abdominal symptoms today. Patient underwent sigmoid resection and formation of her colostomy on December [address] Lentz. Made NPO. CT scan abdomen ordered. IV cefepime and IV Flagyl. -Postop surgical site pain.: Worsening today home dose of Percocet -Severe hypokalemia: Replaced Replace potassium -Possible secondary peritonitis from hollow viscus perforation IV cefepime and IV Flagyl. ID following -COPD and a current smoker DuoNeb 3 times daily. Singulair.. Breztri inhaler -Chronic nicotine dependence, cigarette smoker Nicotine patch -Hyperlipidemia Lipitor 20 mg a day -Severe protein calorie malnutrition. BMI 18.3. Dietitian on the case -Chronic muscle spasm Baclofen as needed -Peptic ulcer disease PPI -Hypoglycemia from poor oral intake: Better -Essential hypertension. Better controlled Lopressor to 50 mg twice daily -Insomnia with hallucinations. Restoril. Made NPO. CT abdomen ordered. Thank you Dr. Lentz Past Medical History Past Medical History: COPD, Hypertension, Rheumatoid Arthritis (RA) Additional Past Medical History / Comment(s): bleeding ulcer History of Any Multi-Drug Resistant Organisms: None Reported Past Surgical History: Tubal Ligation Additional Past Surgical History / Comment(s): Eye surgery (cataracts removed). Past Anesthesia/Blood Transfusion Reactions: No Reported Reaction Past Psychological History: No Psychological Hx Reported Smoking Status: Current every day smoker Past Alcohol Use History: Rare Past Drug Use History: None Reported
--- NOTE | 2023-12-16 15:30 | P.PN ---
Subjective Progress Note Date: 12/16/23 Principal diagnosis: Reason for follow-up is perforated diverticulitis and abscess Patient is a 78-year-old female with a past medical history significant for COPD hypertension rheumatoid arthritis presenting to the ER for evaluation of epigastric abdominal pain, patient did have a CT abdominal pelvis concerning for free subsequently taken to the OR status post laparotomy with evidence of perforated sigmoid diverticulitis status post sigmoid colectomy and end colostomy. On today's evaluation that is 12/16/2023, the patient is afebrile, patient is on room air, the patient denies chest pain shortness of breath did have some dry cough is coming, some nausea and more abdominal pain today mention did have output in her colostomy bag. Patient white count is up to 12.7 creatinine 0.55 Objective - Vital Signs Vital signs: Vital Signs Temp 97.9 F 12/16/23 07:51 Pulse 76 12/16/23 11:26 Resp 18 12/16/23 11:26 BP 139/65 12/16/23 11:26 Pulse Ox 97 12/16/23 11:26 FiO2 30 12/09/23 10:00 Intake & Output 12/15/23 12/16/23 12/16/23 18:59 06:59 18:59 Intake Total 236 118 Output Total 660 400 Balance 236 660 -282 Weight 35.5 kg Intake: Oral 236 118 Output: Urine 660 400 Other: Voiding Method Bedside Commode Bedpan Bedpan # Voids 1 ABP, PAP, CO, CI - Last Documented Arterial Blood Pressure 119/92 - Exam GENERAL DESCRIPTION: An elderly female lying in bed in no distress RESPIRATORY SYSTEM: Unlabored breathing , decreased breath sounds at bases HEART: S1 S2 regular rate and rhythm , ABDOMEN: Soft , mild tenderness EXTREMITIES: No edema feet - Labs CBC & Chem 7: 12/16/23 11:53 12/15/23 08:31 Labs: Abnormal Lab Results - Last 24 Hours (Table) 12/15/23 12/16/23 Range/Units 20:02 11:53 WBC 12.7 H (3.8-10.6) k/uL RBC 3.68 L (3.80-5.40) m/uL Neutrophils # 11.2 H (1.3-7.7) k/uL Lymphocytes # 0.7 L (1.0-4.8) k/uL POC Glucose (mg/dL) 149 H (70-110) mg/dL Assessment and Plan (1) Intra-abdominal abscess Current Visit: Yes Status: Acute Code(s): K65.1 - PERITONEAL ABSCESS SNOMED Code(s): 61462530 (2) Allergy to multiple antibiotics Current Visit: Yes Status: Acute Code(s): Z88.1 - ALLERGY STATUS TO OTHER ANTIBIOTIC AGENTS SNOMED Code(s): 369413127 (3) Perforated viscus Current Visit: Yes Status: Acute Code(s): R19.8 - OTH SYMPTOMS AND SIGNS INVOLVING THE DGSTV SYS AND ABDOMEN SNOMED Code(s): 865942027 Plan: 1patient presented to hospital with abdominal pain has been diagnosed with a perforated viscus in this patient was status post laparotomy with evidence of perforated sigmoid diverticulitis status post laparotomy sigmoid colectomy and end colostomy for likely organism need to cover will be enteric gram-negative both aerobes and anaerobes 2-patient with multiple antibiotic ALLERGIES that would limit the number of antibiotic safe to use 3-patient is afebrile however the patient white count slightly up today patient complained of more abdominal pain repeat CT has been ordered results will be followed continue with cefepime and Flagyl and monitor clinical course closely Dictation was produced using [employer] dictation software. please excuse any gramma tical, word or spelling errors. Time with Patient: Less than 30
--- NOTE | 2023-12-16 15:58 | CT ---
EXAMINATION TYPE: CT abdomen pelvis w con CT DLP: 537.9 mGycm, Automated exposure control for dose reduction was used. DATE OF EXAM: 12/16/2023 3:18 PM COMPARISON: CT abdomen pelvis most recent from 12/08/2023 CLINICAL INDICATION:Female, 78 years old with history of Abdominal pain; abdominal pain, nasuea TECHNIQUE: Axial CT abdomen pelvis w con;Sagittal and coronal reformats were created on a separate w orkstation. Contrast used:100 mL of Isovue 300 with IV Contrast, (none if empty) Oral contrast used: with Oral Contrast (none if empty) FINDINGS: LOWER CHEST: Moderate bilateral pleural effusions with associated atelectasis. ABDOMEN LIVER: Scattered probable cysts are seen throughout the liver parenchyma. GALLBLADDER AND BILE DUCTS: The gallbladder is nondistended. There may be few gallstones present. PANCREAS: Unremarkable. SPLEEN: Unremarkable. ADRENAL GLANDS: Unremarkable. KIDNEYS AND URETERS: No evidence of hydronephrosis or renal calculus. The ureters are unremarkable. PELVIS BLADDER: Unremarkable REPRODUCTIVE: Unremarkable. ABDOMEN & PELVIS STOMACH AND BOWEL: Dilated small bowel loops are seen throughout the abdomen measuring up to 33 mm. A transition point felt to be series 202 image 36 and series 201 image 52. In the midline with relativ e nondistention bowel extending away from this area. Remainder of the upstream bowel is dilated. The stomach lumen is distended with ingested contents there is circumferential wall thickening of the gastric bands from stress the pylorus measuring up to 10 mm in thickness. PERITONEUM/RETROPERITONEUM: No evidence of pneumoperitoneum. There is a small amount of fluid through out the abdomen. VASCULATURE: No evidence of aortic aneurysm. MUSCULOSKELETAL: No acute osseous abnormalities. Mild disc degeneration changes are present throughou t the thoracolumbar spine. LYMPH NODES: No gross evidence for lymphadenopathy. SOFT TISSUE/ABDOMINAL WALL: Anasarca of the soft tissues. IMPRESSION: 1. Findings suspicious for partial versus early complete bowel obstruction. Transition point identif ied in the lower abdomen near midline possibly due to internal herniation. 2. Postsurgical changes anterior abdominal wall with skin maurizio present. 3. Anasarca with bilateral pleural effusions and ascites. Findings communicated to Dr. Demetrio Lentz MD on 12/16/2023 3:[address] Maurice Beach.
[2023-12-16] MEDS: metroNIDAZOLE-NS PMX 500 MG in SALINE 1 100ML.BAG IVPB SCH (16:11)
[2023-12-16 16:32] LABS: Glucose,Whole Blood 80 mg/dL (70-110)
--- NOTE | 2023-12-16 17:45 | XR ---
EXAMINATION TYPE: XR chest 1V portable DATE OF EXAM: 12/16/2023 CLINICAL HISTORY: NG tube placement. TECHNIQUE: Single AP portable upright view of the chest is obtained. COMPARISON: Chest x-ray from December 10, 2023 FINDINGS: Nasogastric tube projects below diaphragm. More prominent small bilateral pleural effusion s and bibasilar opacities. Upper lungs remain clear. Cardiac silhouette size remains within normal li mits with atherosclerotic thoracic aorta. Osseous structures are intact. IMPRESSION: Small bilateral pleural effusions increased in size from prior with associated bibasilar opacity favoring atelectasis. Nasogastric tube satisfactory in position.
[2023-12-16] MEDS: BENZOCAINE/MENTHOL LOZENG 1 EACH LOZENGE MUCOUS MEM PRN (18:17)
[2023-12-16 20:07] LABS: Glucose,Whole Blood 61 mg/dL (70-110)
[2023-12-16 20:30] LABS: Glucose,Whole Blood 123 mg/dL (70-110)
[2023-12-16] MEDS: ACETAMINOPHEN IVPB PRN (21:51)
[2023-12-17 00:11] LABS: Glucose,Whole Blood 80 mg/dL (70-110)
[2023-12-17] MEDS: MORPHINE SULFATE 4 MG/ML SYRINGE IVP PRN (03:11)
[2023-12-17 05:42] LABS: Glucose,Whole Blood 60 mg/dL (70-110)
[2023-12-17 06:23] LABS: Glucose,Whole Blood 145 mg/dL (70-110)
[2023-12-17 06:28] LABS: Basophils # (A) 0.1 k/uL (0-0.2); Basophils % (A) 0 %; Eosinophils # (A) 0.1 k/uL (0-0.7); Eosinophils % (A) 0 %; HGB 13.2 gm/dL (11.4-16.0); Lymphocytes # (A) 0.6 k/uL (1.0-4.8); Lymphocytes % (A) 3 %; MCH 32.2 pg (25.0-35.0); MCHC 33.8 g/dL (31.0-37.0); MCV 95.4 fL (80.0-100.0); Mean Platelet Volume 8.1; Monocytes # (A) 0.6 k/uL (0-1.0); Monocytes % (A) 3 %; Neutrophils # (A) 17.8 k/uL (1.3-7.7); Neutrophils % (A) 93 %; Platelet Count 411 k/uL (150-450); RBC 4.09 m/uL (3.80-5.40); RDW 12.5 % (11.5-15.5); WBC 19.2 k/uL (3.8-10.6)
[2023-12-17 11:21] LABS: Glucose,Whole Blood 81 mg/dL (70-110)
--- NOTE | 2023-12-17 11:47 | P.PN ---
Subjective Progress Note Date: 12/17/23 This is a 78-year-old female patient with a history of rheumatoid arthritis, hypertension, hyperlipidemia, gastroesophageal reflux disease chronic obstructive pulmonary disease with chronic and ongoing tobacco dependence. She presented to the emergency room early this morning with complaints of severe e pigastric abdominal pain. She has a prior history of gastric ulcers and frequently has abdominal pain. ET scan of the abdomen revealed evidence of free air. Gastric or proximal duodenal ulcer perforation was suspected given severe gastric antral wall thickening. Chest x-ray revealed no acute pulmonary process. White count 8.8. Hemoglobin 12.5. Platelets 263. Sodium 138. Potassium 4.0. Bicarb 23. BUN 19. Creatinine 0.51. Glucose 102. Viral screen was negative. Lipase 11. Amylase less than 30. AST 56. ALT 48. She was taken to the operating room and had undergone a full oratory laparotomy, sigmoid colectomy and end colostomy for a perforated sigmoid diverticulitis. She remained intubated and on the mechanical ventilator and transferred to the intensive care unit. Current vent to later settings are assist-control mode at a rate of 14, tidal line 350, FiO2 100% and a PEEP of 5. She is sedated on propofol at 20 mcg/kg/min. She has lactated Ringer's at 125 MLS per hour. She is on antibiotics in the form of Levaquin and Flagyl. Abdominal dressing is dry and intact. There is a left colostomy in place. Right radial arterial line in place. She is somewhat hypertensive and initiated on Cleviprex infusion 1 mg/h. Dilaudid for pain control. The patient is seen today December 09, 2023 in follow-up in the intensive care unit. She remains intubated on mechanical ventilator. Current settings are assist-control mode at a rate of 20, tidal line 350, FiO2 30% and a PEEP of 5. Morning blood gases reveal a pO2 of 165, pCO2 39 and a pH of 7.43. These were on FiO2 40%. Sedated on propofol at 20 mics per kilogram per minute. Lactated Ringer's at 125 MLS per hour. She remains on bronchodilators. Antibiotics in the form of cefepime and Flagyl. Heparin for DVT prophylaxis. Chest x-ray reveals no significant change. Evidence of COPD. The patient is seen today December 10, 2023 in follow-up in the intensive care unit. She is awake and alert in no acute distress. She is maintaining good O2 saturations in the 90s on room air. She has lactated Ringer's at 125 MLS per hour. Nasogastric tube remains in place. He is continued on DuoNeb ventilations, Pulmicort and perform scintillations, Singulair. NicoDerm patch in place. She remains on heparin for DVT prophylaxis. Antibiotics in the form of cefepime and Flagyl. Wound culture positive for gram-negative bacilli. White count 13.8. Hemoglobin 10.8. Platelets 255. Sodium 133. Potassium 3.8. Bicarb 24. BUN 20. Creatinine 0.80. Glucose 201 after treatment for hypoglycemia. Currently NPO. Chest x-ray reveals patchy density in the right lower lobe and slight increase in small basilar effusions. The patient is seen today December 11, 2023 in follow-up on the selective care unit. She was transferred out of the ICU yesterday. She is awake and alert in no acute distress. Sitting up in bed. Maintaining good O2 saturations in the 90s on room air. She remains NPO. She remains with a night nasogastric tube in place. She is D5.45 normal saline at 125 MLS per hour. Wound culture was positive for E. coli. Abdominal dressing dry and intact. Ostomy present, nonfunctioning thus far. Blood sugar 133. She is continued on DuoNeb ventilations, Pulmicort and Perforomist inhalations. NicoDerm patch applied. Utilizing NicoDerm gum. Antibiotics in the form of cefepime and Flagyl. Heparin for DVT prophylaxis. On today's evaluation of On today's evaluation of 12/12/2023, the patient is being seen for a follow-up. The patient is still recovering from her surgery. The patient is currently on room air oxygen. Noted the patient remains NPO. Bowel sounds are quite hypoactive and nearly absent and there is no functionality in her colostomy bag. No significant output has been noted. The patient denies having any nausea or vomiting. Some vague abdominal discomfort in the right lower quadrant area. Otherwise, she has no other new complaints. The surgical scar is dry clean and intact. The patient remains on IV cefepime and Flagyl. The patient is afebrile. Hemodynamically stable. BUN is at 6 with a creatinine of 0.38 and a potassium level is at 2.9 that needs to be replaced and the sodium levels at 132. WBC count of 13.2 with a hemoglobin 12.4. Patient is using the incentive spirometer. She is ambulating. No altered mentation. No other significant issues otherwise. NG tube was removed yesterday. As for the intra-abdominal wounds, it is growing anaerobic gram-negative bacilli in addition to E. coli and Streptococcus. The patient is afebrile. Antibiotic coverage is adequate for now. The patient is known to have previous history of RA, hypertension, hyperlipidemia, COPD and previous history of smoking. The patient was diagnosed having a perforated sigmoid diverticulitis and the patient has undergone exploratory laparotomy, sigmoid colectomy and end colostomy. On 12/13/2023, the patient is on room air oxygen and the patient is calm and comfo rtable. No significant respite distress. Bowel sounds are hypoactive. Nevertheless, the patient was able to pass stool in the colostomy bag. She continues to have some limited abdominal tenderness.She remains hemodynamically stable with a white cell count of 15.8 and a hemoglobin of 11.9 and his sodium level is at 135 with a potassium level of 2.9 and a BUN of 7 with a creatinine of 0.46. The patient remains on Flagyl and cefepime as a broad-spectrum antibiotic coverage as the patient has shown some anaerobic growth and E. coli and Streptococcus alphahemolytic in the abdominal cultures. In terms of her morning abdominal x-ray, it showed some nonspecific findings and there was a tiny left-sided pleural effusion. On today's evaluation of 12/14/2023, the patient is tolerating clear liquid diet. She is on room air oxygen. No significant respite distress. No cough or sputum production. No chest tightness or wheezing. No abdominal pain. Her colostomy is functional. She remains on broad-spectrum antibiotics. She is afebrile.There was because of 10.6 with a hemoglobin 10.8 and a platelet count of 274. BUN is at 8 with a creatinine of 0.4 and sodium levels at 130. Surgical wound is dry clean and intact. Colostomy is functional. ID is on the case. General surgery is on the case. She remains on room air oxygen. On 12/15/2023, the patient is doing well. Tolerating diet. Colostomy is functional. No signs of any significant respiratory distress. No fever or chills. No Abdominal pain. The white cell count 11 with a hemoglobin 11.4 and platelet count of 294. Sodium level is 132, potassium level of 3.6, BUN is at 10 with a creatinine of 0.5. Abdominal cultures are still positive for anaerobes gram-negative, E. coli and alphahemolytic strep and the patient remai ns on IV cefepime for now. The patient remains also on bronchodilators patient is currently on room air oxygen. She has a nicotine patch. She is on metoprolol 50 mg p.o. twice a day. She is also on heparin subcu for DVT prophylaxis. No other significant events. She feels much better compared to yesterday. On 12/16/2023, I am seeing the patient for a follow-up. The patient is doing well. Tolerating clear liquid diet. Colostomy is functional. No significant complaints other than some occasional abdominal discomfort and tenderness. Surgical wound is clean dry and intact at this point in time. WBC count of 12.7 with a hemoglobin 11.9 and platelet count of 339. Blood sugars at 94. Remains on the same antibiotic coverage. Remains on bronchodilators. Continues to use incentive spirometer. She has a nicotine patch. No other significant events. She is able to transition to a chair and she is doing some limited amount of mobility. Her body mass index is 14.3. On today's evaluation of 10/16/2024, the patient is being seen for a follow-up. The patient is having issues with abdominal ileus. She had some increased abdominal pain yesterday and based on that she was given a CAT scan of the abdomen that showed partial versus complete bowel obstruction and the transition point cannot be completely identified. There was also anasarca with bilateral pleural effusion and ascites and postsurgical changes in the abdomen. Despite these findings, the patient's colostomy is still showing positive output. Based on those findings, an NG tube was placed and the patient was kept n.p.o. NG tube was produced approximate 200 cc of gastric material. The abdomen is soft. The patient will get a PICC line for subsequent TPN feeding. Otherwise, she is awake and alert, she is weak, the white cell count of 19.2 with hemoglobin 13 and a platelet count of 411. Electrolytes are still pending for now. No other significant events otherwise for now. Remains on IV cefepime and Flagyl. Objective - Vital Signs Vital signs: Vital Signs Temp 98.6 F 12/17/23 07:41 Pulse 67 12/17/23 07:41 Resp 18 12/17/23 07:41 BP 162/73 12/17/23 07:41 Pulse Ox 93 L 12/17/23 07:41 FiO2 30 12/09/23 10:00 Intake & Output 12/16/23 12/17/23 12/17/23 18:59 06:59 18:59 Intake Total 118 Output Total 600 1400 Balance -482 -1400 Intake: Oral 118 Output: Gastric Drainage 1400 Urine 600 Other: Voiding Method Bedpan # Voids 1 1 ABP, PAP, CO, CI - Last Documented Arterial Blood Pressure 119/92 - Exam GENERAL EXAM: Awake, sitting up in bed, 78-year-old female, on room air, in no apparent distress. The patient is currently on room air oxygen by nasal cannula and the patient has an NG tube in place HEAD: Normocephalic. EYES: Sluggish reaction of pupils, equal size. NOSE: Clear with pink turbinates. THROAT: Nasogastric tube secured in place. No erythema or exudates. NECK: No masses, no JVD. CHEST: No chest wall deformity. LUNGS: Equal air entry with faint crackles in the posterior bases. CVS: S1 and S2 normal with no audible murmur, regular rhythm. ABDOMEN: Abdominal dressing dry and intact. Left abdominal ostomy output is present. Bowel sounds are hypoactive SPINE: No scoliosis or deformity SKIN: No rashes CENTRAL NERVOUS SYSTEM: Sedated, tone is normal in all 4 extremities. EXTREMITIES: Right radial arterial line in place there is no peripheral edema. No clubbing, no cyanosis. Peripheral pulses are intact. - Labs CBC & Chem 7: 12/17/23 06:03 12/15/23 08:31 Labs: Abnormal Lab Results - Last 24 Hours (Table) 12/16/23 12/16/23 12/16/23 Range/Units 11:53 20:05 20:29 WBC 12.7 H (3.8-10.6) k/uL RBC 3.68 L (3.80-5.40) m/uL Neutrophils # 11.2 H (1.3-7.7) k/uL Lymphocytes # 0.7 L (1.0-4.8) k/uL POC Glucose (mg/dL) 61 L 123 H (70-110) mg/dL 12/17/23 12/17/23 12/17/23 Range/Units 05:40 06:03 06:21 WBC 19.2 H (3.8-10.6) k/uL RBC (3.80-5.40) m/uL Neutrophils # 17.8 H (1.3-7.7) k/uL Lymphocytes # 0.6 L (1.0-4.8) k/uL POC Glucose (mg/dL) 60 L 145 H (70-110) mg/dL Assessment and Plan Plan: Severe acute abdominal pain secondary to perforated sigmoid diverticulitis. Status post exploratory laparotomy, sigmoid colectomy, end colostomy. Postoperative day # 9 there is output in the colostomy bag. Bowel sounds are hypoactive. Intra-abdominal wounds have shown anaerobic gram-negative bacillus and E. coli and Streptococcus, thrombolytic and the patient remains on a combination of cefepime and Flagyl.. The patient has already versus complete bowel obstruction and based on that, the patient was kept n.p.o. and NG tube decompression was offered to this patient. Output from the NG tube is minimal and the abdomen is nondistended. There is positive output in the colostomy bag. Acute hypoxemic respiratory failure secondary to above requiring prolonged ventilation postoperatively recovered and on room air Severe protein calorie malnutrition with a BMI of less than 20 kg/m, currently at 14.3 History of gastric ulcers and esophagitis History of rheumatoid arthritis History of chronic obstructive pulmonary disease History of chronic tobacco dependence History of hypertension History of hyperlipidemia History of gastroesophageal reflux disease Plan Keep the patient n.p.o. Keep NG tube in place Increase mobility Patient is currently on room air oxygen Colostomy is functional Continue using incentive spirometer Continue IV Flagyl and cefepime, abdominal wound cultures were noticed and the findings are essentially unchanged Abdominal CAT scan was noted Continue with Luis A garcia Continue Perforomist and Pulmicort nebulized treatments twice a day Patient has a nicotine patch Patient is seeing Eric for pain control and her pain is under adequate control for now PICC line Dietary consultation for TPN Heparin subcu for DVT prophylaxis Will continue to follow
--- NOTE | 2023-12-17 12:47 | P.PN ---
Subjective Progress Note Date: 12/17/23 Principal diagnosis: Reason for follow-up is perforated diverticulitis and abscess Patient is a 78-year-old female with a past medical history significant for COPD hypertension rheumatoid arthritis presenting to the ER for evaluation of epigastric abdominal pain, patient did have a CT abdominal pelvis concerning for free subsequently taken to the OR status post laparotomy with evidence of perforated sigmoid diverticulitis status post sigmoid colectomy and end colostomy. On today's evaluation that is 12/17/2023, the patient denies any fever or any chills, patient is breathing comfortably on room air, the patient denies chest pain shortness of breath and no significant cough cough, patient abdominal pain has decreased in intensity mention did have an episode of vomiting at the time of NG placement. Patient white count of 19.2 CT abdominal pelvis findings suspicious for partial versus early complete bowel obstruction did not mention any abscess chest x-ray small bilateral effusion increase from the prior Objective - Vital Signs Vital signs: Vital Signs Temp 98.6 F 12/17/23 07:41 Pulse 67 12/17/23 07:41 Resp 18 12/17/23 07:41 BP 162/73 12/17/23 07:41 Pulse Ox 93 L 12/17/23 07:41 FiO2 30 12/09/23 10:00 Intake & Output 12/16/23 12/17/23 12/17/23 18:59 06:59 18:59 Intake Total 118 Output Total 600 1400 Balance -482 -1400 Intake: Oral 118 Output: Gastric Drainage 1400 Urine 600 Other: Voiding Method Bedpan # Voids 1 1 ABP, PAP, CO, CI - Last Documented Arterial Blood Pressure 119/92 - Exam GENERAL DESCRIPTION: An elderly female lying in bed in no distress RESPIRATORY SYSTEM: Unlabored breathing , decreased breath sounds at bases HEART: S1 S2 regular rate and rhythm , ABDOMEN: Soft , mild tenderness EXTREMITIES: No edema feet - Labs CBC & Chem 7: 12/17/23 06:03 12/15/23 08:31 Labs: Abnormal Lab Results - Last 24 Hours (Table) 12/16/23 12/16/23 12/16/23 Range/Units 11:53 20:05 20:29 WBC 12.7 H (3.8-10.6) k/uL RBC 3.68 L (3.80-5.40) m/uL Neutrophils # 11.2 H (1.3-7.7) k/uL Lymphocytes # 0.7 L (1.0-4.8) k/uL POC Glucose (mg/dL) 61 L 123 H (70-110) mg/dL 12/17/23 12/17/23 12/17/23 Range/Units 05:40 06:03 06:21 WBC 19.2 H (3.8-10.6) k/uL RBC (3.80-5.40) m/uL Neutrophils # 17.8 H (1.3-7.7) k/uL Lymphocytes # 0.6 L (1.0-4.8) k/uL POC Glucose (mg/dL) 60 L 145 H (70-110) mg/dL Assessment and Plan (1) Intra-abdominal abscess Current Visit: Yes Status: Acute Code(s): K65.1 - PERITONEAL ABSCESS SNOMED Code(s): 78851748 (2) Allergy to multiple antibiotics Current Visit: Yes Status: Acute Code(s): Z88.1 - ALLERGY STATUS TO OTHER ANTIBIOTIC AGENTS SNOMED Code(s): 415119849 (3) Perforated viscus Current Visit: Yes Status: Acute Code(s): R19.8 - OTH SYMPTOMS AND SIGNS INVOLVING THE DGSTV SYS AND ABDOMEN SNOMED Code(s): 404777946 Plan: 1patient presented to hospital with abdominal pain has been diagnosed with a perforated viscus in this patient was status post laparotomy with evidence of perforated sigmoid diverticulitis status post laparotomy sigmoid colectomy and end colostomy for likely organism need to cover will be enteric gram-negative both aerobes and anaerobes 2-patient did have repeat CT has with evidence of partial versus complete bowel obstruction NG has been placed patient white count is slightly up and will monitor closely and will continue with cefepime and Flagyl Dictation was produced using [employer] dictation software. please excuse any grammatical, word or spelling errors. Time with Patient: Less than 30
[2023-12-17 14:52] LABS: ALT 30 U/L (4-34); AST 39 U/L (14-36); African American GFR (CKD) >90 (>60 ml/min/1.73 sqM); Albumin 2.3 g/dL (3.5-5.0); Albumin/Globulin Ratio 0.9; Alkaline Phosphatase 71 U/L (38-126); Anion Gap 4 mmol/L; Blood Urea Nitrogen 18 mg/dL (7-17); Calcium 8.6 mg/dL (8.4-10.2); Carbon Dioxide 24 mmol/L (22-30); Chloride 101 mmol/L (98-107); Globulin 2.5 g/dL; Glucose 70 mg/dL (74-99); Magnesium 1.4 mg/dL (1.6-2.3); Non-African American GFR(CKD) 86 (>60 ml/min/1.73 sqM); Potassium 3.6 mmol/L (3.5-5.1); Sodium 129 mmol/L (137-145); Total Bilirubin 0.6 mg/dL (0.2-1.3); Total Protein 4.8 g/dL (6.3-8.2)
[2023-12-17 16:36] LABS: Glucose,Whole Blood 72 mg/dL (70-110)
--- NOTE | 2023-12-17 19:09 | P.PN ---
Progress Note - Text Progress Note Date: 12/17/23 - Chief Complaint Abdominal pain - History of Present Illness This is a pleasant 78-year-old patient, chronic stable medical conditions include COPD, hypertension, rheumatoid arthritis. Patient is active smoker. Patient with 3 days been having increasing abdominal pain. Presented to the ER. CT scan showed free air. Patient was taken to the OR yesterday by Dr. Lentz. Underwent exploratory laparotomy. Found to have a perforated sigmoid d iverticulitis. Sigmoid colectomy with end colostomy was done. Today in the ICU: Extubated earlier today. 2 L nasal cannula. Has NG tube to suction. No output in the colostomy bag. Son at the bedside. Pain at the surgical site. December 10: Patient moved out of the ICU. NG tube to intermittent suction. Did not sleep well yesterday. States when she tries to close her eyes she starts hallucinating. Given one-time dose of Haldol. Having significant pain at the operative site. Pain medications per surgical team. No output through colostomy bag. Discussed with nurse. Sons at the bedside. Also added Nicorette gum as needed. Hypoglycemia: Change IV fluids to D5.45. Patient on IV cefepime and IV Flagyl. December 11: NG tube in place. Plan for it to be discontinued this afternoon. Very little output from the colostomy bag. Did sleep her last night.'s some hallucinations. Discussed with the patient's son. Try to cut back on IV narcotics balance between pain control and side effects. December 12: NG tube was discontinued yesterday. Remains NPO per surgery. No output from the colostomy bag. Did not sleep well last night. Chewing gum ordered. Remains on IV cefepime. IV Flagyl. For blood pressure start Catapres patch 0.2. December 13: Patient be started on clear liquids by surgery. Some stool from the colostomy bag. Pain better. Pain switched over to oral pain medications. Abdominal wound cultures growing E. coli and alphahemolytic Streptococcus. Remains on IV cefepime and IV Flagyl. Abdominal pain better. December 14: Patient having dark stool output through the colostomy bag. Did sit up in a chair. On full liquid diet. Patient requested to have a home dose of Percocet as opposed to [place]. Ordered. Blood pressure running high. Increase Lopressor to 50 mg twice daily. December 15: Patient advance to low fiber diet today. Eating some. Abdominal pain much better. Colostomy bag working. 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 December 16: Patient complaining of increasing abdominal pain. More distention. Some stool from the colostomy bag. Patient made NPO. On antibiotics. CT scan abdomen ordered. December 17: Continues to have abdominal pain. NG tube to suction. Some stool in the colostomy bag. CT scan from yesterday showed partial versus complete bowel obstruction. Active Medications Albuterol Sulfate (Albuterol Nebulized 2.5 Mg/3 Ml) 2.5 mg INHALATION RT-Q4H PRN PRN Reason: Shortness Of Breath Albuterol/Ipratropium (Ipratropium-Albuterol 3 Ml Neb) 3 ml INHALATION RT-Q2H PRN PRN Reason: Shortness Of Breath Or Wheezing Albuterol/Ipratropium (Ipratropium-Albuterol 3 Ml Neb) 3 ml INHALATION RT-QID [facility] Last Admin: 12/17/23 15:19 Dose: 3 ml Atorvastatin Calcium (Atorvastatin 20 Mg Tab) 20 mg PO DAILY [facility] Last Admin: 12/17/23 08:46 Dose: Not Given Baclofen (Baclofen 10 Mg Tab) 10 mg PO HS [facility] Last Admin: 12/16/23 22:33 Dose: Not Given Benzocaine (Benzocaine [place] 1 Can) 1 spray MUCOUS MEM QID PRN; Protocol PRN Reason: Mouth Irritation Last Admin: 12/10/23 00:20 Dose: 1 spray Benzocaine/Menthol (Benzocaine/Menthol Lozeng 1 Each Lozenge) 1 each MUCOUS MEM Q4HR PRN PRN Reason: Sore Throat Last Admin: 12/16/23 18:17 Dose: 1 each Budesonide (Budesonide 1 Mg/2 Ml Nebu) 1 mg INHALATION RT-BID [facility] Last Admin: 12/17/23 09:20 Dose: Not Given Clonidine HCl (Clonidine 0.2 Mg/24hr Patch) 1 patch TRANSDERM Q7D [facility] Last Admin: 12/12/23 17:17 Dose: 1 patch Dextrose/Water (Dextrose 50% Syringe 50 Ml) 25 ml IVP PER PROTOCOL PRN; Protocol PRN Reason: Hypoglycemia Last Admin: 12/17/23 05:52 Dose: 25 ml Dextrose/Water (Dextrose 50% Syringe 50 Ml) 50 ml IVP PER PROTOCOL PRN; Protocol PRN Reason: Hypoglycemia Formoterol Fumarate (Formoterol Fumarate 20 Mcg/2 Ml Nebu) 20 mcg INHALATION RT-BID [facility] Last Admin: 12/17/23 09:21 Dose: Not Given Heparin Sodium (Porcine) (Heparin Sodium,Porcine 5,000 Unit/Ml 1 Ml Vial) 5,000 unit SQ Q8HR [facility] Last Admin: 12/17/23 16:33 Dose: 5,000 unit Hydroxychloroquine Sulfate (Hydroxychloroquine Sulfate 200 Mg Tab) 200 mg PO BID [facility] Last Admin: 12/17/23 11:38 Dose: Not Given Lactated Ringer's (Lactated Ringers) 1,000 mls @ 75 mls/hr IV .[id number] [facility] Last Admin: 12/17/23 08:46 Dose: Not Given Cefepime HCl 2 gm/ Sodium (Chloride) 100 mls @ 25 mls/hr IVPB Q12HR [facility]; Protocol Last Admin: 12/17/23 08:46 Dose: 25 mls/hr Metronidazole 500 mg/ IV (Solution) 100 mls @ 100 mls/hr IVPB Q8HR [facility]; Protocol Last Admin: 12/17/23 16:33 Dose: 100 mls/hr Acetaminophen 550 mg/ IV (Solution) 55 mls @ 220 mls/hr IVPB Q8HR PRN PRN Reason: Pain Stop: 12/22/23 23:00 Last Admin: 12/16/23 21:51 Dose: 220 mls/hr Metoprolol Tartrate (Metoprolol Tartrate 5 Mg/5 Ml Vial) 5 mg IVP Q6HR PRN PRN Reason: Blood Pressure - High Last Admin: 12/16/23 21:54 Dose: 5 mg Metoprolol Tartrate (Metoprolol Tartrate 50 Mg Tab) 50 mg PO BID [facility] Last Admin: 12/17/23 11:38 Dose: Not Given Miscellaneous Information (Magnesium Replacement Protocol 1 Each Misc) 1 each MISCELLANE DAILY PRN; Protocol PRN Reason: Per Protocol Miscellaneous Information (Potassium Replacement Protocol 1 Each Misc) 1 each MISCELLANE DAILY PRN; Protocol PRN Reason: Per Protocol Montelukast Sodium (Montelukast 10 Mg Tab) 10 mg PO DAILY [facility] Last Admin: 12/17/23 08:46 Dose: Not Given Morphine Sulfate (Morphine Sulfate 4 Mg/Ml Syringe) 4 mg IVP Q3HR PRN PRN Reason: Pain Last Admin: 12/17/23 17:34 Dose: 4 mg Naloxone HCl (Naloxone 0.4 Mg/Ml 1 Ml Vial) 0.2 mg IV Q2M PRN PRN Reason: Opioid Reversal Nicotine (Nicotine 21mg/24hr Patch) 1 patch TRANSDERM DAILY [facility] Last Admin: 12/17/23 08:46 Dose: 1 patch Nicotine Polacrilex (Nicotine Gum (Polacrilex) 2 Mg Gum) 2 mg BUCCAL Q4HR PRN PRN Reason: Nicotine Cravings Oxycodone/Acetaminophen (Oxycodone-Apap 7.5-325mg 1 Each Tab) 1 each PO Q6H PRN PRN Reason: Pain Last Admin: 12/16/23 16:11 Dose: 1 each Pantoprazole Sodium (Pantoprazole 40 Mg Tablet) 40 mg PO AC-BID [facility] Last Admin: 12/17/23 16:12 Dose: Not Given Temazepam (Temazepam 15 Mg Cap) 15 mg PO HS PRN PRN Reason: Insomnia Last Admin: 12/15/23 23:36 Dose: 15 mg Social history: Patient been smoking for many years. Was up to 4 packs a day. Now down to a pack a day. Works at [employer]. Lives with her son. Physical examination: VITAL SIGNS: 98, 74, 19, 130/58, 94% room air GENERAL: Laying in bed uncomfortable EYES: Pupils equal. Conjunctiva normal HEENT: External appearance of nose and ears normal, oral cavity grossly normal. Diminished hearing in the right ear. NG tube to suction NECK: JVD not raised; masses not palpable. HEART: First and second heart sounds are normal; no edema. LUNGS:[ Respiratory rate increased, diminished breath sounds. ABDOMEN: Soft, tender, distention , no guarding rigidity, liver spleen not palpable, no masses palpable. Left-sided colostomy bag-some dark stool. PSYCH: [Alert and oriented x3; mood and affect anxious. MUSCULOSKELETAL:No Clubbing/cyanosis;muscles-grossly intact INVESTIGATIONS, reviewed in the clinical context: December 17: White count 9.2 hemoglobin 13.2 sodium 129 potassium 3[address] scan abdomen [December 16]: Evidence of possibly complete bowel obstruction possibly December 16: White count 12.7 hemoglobin 11.9 December 15: White count 11 hemoglobin 11.4 potassium 3.6 creatinine 0.55 Abdominal wound culture: E. coli and alphahemolytic Streptococcus. December 09: White count 10.8 hemoglobin 10.9 platelets 254 sodium 135 potassium 3.8 BUN 20 creatinine 0.61 Chest x-ray film personally reviewed by me-hyperinflation Telemetry strip bedside monitor: Personally reviewed by me. Sinus rhythm CT scan abdomen pelvis: Moderate prominence of the stomach. Severe wall thickening of the gastric antrum. Distal colonic diverticulosis. Free air identified anterior to the bladder. Assessment and plan: -Acute sigmoid diverticulitis with perforation. Cultures growing E. coli and alphahemolytic Streptococcus: Worsening abdominal symptoms today. Patient underwent sigmoid resection and formation of her colostomy on December [address] Lentz. Made NPO. CT scan abdomen [December 16:] Possibly near complete bowel obstruction. NG tube reinserted IV cefepime and IV Flagyl. -Severe hypokalemia: Replaced Replace potassium -Secondary peritonitis from hollow viscus perforation IV cefepime and IV Flagyl. ID following -COPD and a current smoker DuoNeb 3 times daily. Singulair.. Breztri inhaler -Chronic nicotine dependence, cigarette smoker Nicotine patch -Hyperlipidemia Lipitor 20 mg a day -Severe protein calorie malnutrition. BMI 18.3. Dietitian on the case -Chronic muscle spasm Baclofen as needed -Peptic ulcer disease PPI -Hypoglycemia from poor oral intake: Better -Essential hypertension. Better controlled Lopressor to 50 mg twice daily -Insomnia with hallucinations. Restoril. NG tube to suction. IV fluids. Antibiotics. Prognosis guarded. Change IV fluids to D5.45. Thank you Dr. Lentz Past Medical History Past Medical History: COPD, Hypertension, Rheumatoid Arthritis (RA) Additional Past Medical History / Comment(s): bleeding ulcer History of Any Multi-Drug Resistant Organisms: None Reported Past Surgical History: Tubal Ligation Additional Past Surgical History / Comment(s): Eye surgery (cataracts removed). Past Anesthesia/Blood Transfusion Reactions: No Reported Reaction Past Psychological History: No Psychological Hx Reported Smoking Status: Current every day smoker Past Alcohol Use History: Rare Past Drug Use History: None Reported
[2023-12-17] MEDS: DEXTROSE 5%-0.9% NACL 1,000 ML IV SCH (19:16)
[2023-12-17 19:30] LABS: Glucose,Whole Blood 62 mg/dL (70-110)
[2023-12-17 20:03] LABS: Glucose,Whole Blood 138 mg/dL (70-110)
--- NOTE | 2023-12-17 22:59 | P.PN ---
Progress Note - Text Progress Note Date: 12/17/23 Feels better with NG in place, discomfort reduced. Abdomen nontender, without distention. NG output is murky. Na 129, Mag 1.4 Consider gastrograffin small bowel series to evaluate for SBO.
[2023-12-18 01:33] LABS: Glucose,Whole Blood 72 mg/dL (70-110)
[2023-12-18 06:11] LABS: Glucose,Whole Blood 103 mg/dL (70-110)
[2023-12-18 07:43] LABS: ALT 27 U/L (4-34); AST 42 U/L (14-36); African American GFR (CKD) >90 (>60 ml/min/1.73 sqM); Albumin/Globulin Ratio 0.9; Alkaline Phosphatase 61 U/L (38-126); Anion Gap 1 mmol/L; Blood Urea Nitrogen 19 mg/dL (7-17); Calcium 7.9 mg/dL (8.4-10.2); Carbon Dioxide 25 mmol/L (22-30); Chloride 105 mmol/L (98-107); Globulin 2.3 g/dL; Glucose 104 mg/dL (74-99); Magnesium 1.4 mg/dL (1.6-2.3); Non-African American GFR(CKD) 87 (>60 ml/min/1.73 sqM); Phosphorus 3.2 mg/dL (2.5-4.5); Potassium 3.3 mmol/L (3.5-5.1); Sodium 131 mmol/L (137-145); Total Bilirubin 0.4 mg/dL (0.2-1.3); Total Protein 4.3 g/dL (6.3-8.2)
[2023-12-18 11:26] LABS: Glucose,Whole Blood 110 mg/dL (70-110)
--- NOTE | 2023-12-18 11:27 | P.PN ---
Subjective Progress Note Date: 12/18/23 The patient is status post Katie procedure for diverticulitis. Patient has had no significant output. Her NG tube still in place. On exam vital signs appear stable. Abdomen soft with minimal tenderness. Possible ileus. Patient will undergo repeat CT scan today. Objective - Vital Signs Vital signs: Vital Signs Temp 97.2 F L 12/18/23 07:35 Pulse 85 12/18/23 09:20 Resp 16 12/18/23 09:02 BP 135/82 12/18/23 07:35 Pulse Ox 94 L 12/18/23 07:35 FiO2 30 12/09/23 10:00 Intake & Output 12/17/23 12/18/23 12/18/23 18:59 06:59 18:59 Output Total 300 Balance -300 Weight 42.3 kg Output: Gastric Drainage 300 Other: Voiding Method Bedpan # Voids 1 5 ABP, PAP, CO, CI - Last Documented Arterial Blood Pressure 119/92 - Labs CBC & Chem 7: 12/17/23 06:03 12/18/23 07:14 Labs: Abnormal Lab Results - Last 24 Hours (Table) 12/17/23 12/17/23 12/17/23 Range/Units 14:19 19:26 20:01 Sodium 129 L (137-145) mmol/L Potassium (3.5-5.1) mmol/L BUN 18 H (7-17) mg/dL Glucose 70 L (74-99) mg/dL POC Glucose (mg/dL) 62 L 138 H (70-110) mg/dL Calcium (8.4-10.2) mg/dL Magnesium 1.4 L (1.6-2.3) mg/dL AST 39 H (14-36) U/L Total Protein 4.8 L (6.3-8.2) g/dL Albumin 2.3 L (3.5-5.0) g/dL 12/18/23 12/18/23 Range/Units 07:14 07:14 Sodium 131 L (137-145) mmol/L Potassium 3.3 L (3.5-5.1) mmol/L BUN 19 H (7-17) mg/dL Glucose 104 H (74-99) mg/dL POC Glucose (mg/dL) (70-110) mg/dL Calcium 7.9 L (8.4-10.2) mg/dL Magnesium 1.4 L (1.6-2.3) mg/dL AST 42 H (14-36) U/L Total Protein 4.3 L (6.3-8.2) g/dL Albumin 2.0 L (3.5-5.0) g/dL
--- NOTE | 2023-12-18 12:42 | P.PN ---
Subjective Progress Note Date: 12/18/23 Principal diagnosis: Reason for follow-up is perforated diverticulitis and abscess Patient is a 78-year-old female with a past medical history significant for COPD hypertension rheumatoid arthritis presenting to the ER for evaluation of epigastric abdominal pain, patient did have a CT abdominal pelvis concerning for free subsequently taken to the OR status post laparotomy with evidence of perforated sigmoid diverticulitis status post sigmoid colectomy and end colostomy. On today's evaluation that is 12/18/2023,the patient remains to be afebrile, patient is on room air not requiring supplemental oxygen and denies any shortness of breath no chest pain or cough.Patient denies having any nausea or vomiting,, the patient NG has been clamped mention mild abdominal pain. No CBC was done today, creatinine 0.63 Objective - Vital Signs Vital signs: Vital Signs Temp 97.2 F L 12/18/23 07:35 Pulse 85 12/18/23 09:20 Resp 16 12/18/23 09:02 BP 135/82 12/18/23 07:35 Pulse Ox 94 L 12/18/23 07:35 FiO2 30 12/09/23 10:00 Intake & Output 12/17/23 12/18/23 12/18/23 18:59 06:59 18:59 Output Total 300 Balance -300 Weight 42.3 kg Output: Gastric Drainage 300 Other: Voiding Method Bedpan # Voids 1 5 ABP, PAP, CO, CI - Last Documented Arterial Blood Pressure 119/92 - Exam GENERAL DESCRIPTION: An elderly female lying in bed in no distress RESPIRATORY SYSTEM: Unlabored breathing , decreased breath sounds at bases HEART: S1 S2 regular rate and rhythm , ABDOMEN: Soft , mild tenderness EXTREMITIES: No edema feet - Labs CBC & Chem 7: 12/17/23 06:03 12/18/23 07:14 Labs: Abnormal Lab Results - Last 24 Hours (Table) 12/17/23 12/17/23 12/17/23 Range/Units 14:19 19:26 20:01 Sodium 129 L (137-145) mmol/L Potassium (3.5-5.1) mmol/L BUN 18 H (7-17) mg/dL Glucose 70 L (74-99) mg/dL POC Glucose (mg/dL) 62 L 138 H (70-110) mg/dL Calcium (8.4-10.2) mg/dL Magnesium 1.4 L (1.6-2.3) mg/dL AST 39 H (14-36) U/L Total Protein 4.8 L (6.3-8.2) g/dL Albumin 2.3 L (3.5-5.0) g/dL 12/18/23 12/18/23 Range/Units 07:14 07:14 Sodium 131 L (137-145) mmol/L Potassium 3.3 L (3.5-5.1) mmol/L BUN 19 H (7-17) mg/dL Glucose 104 H (74-99) mg/dL POC Glucose (mg/dL) (70-110) mg/dL Calcium 7.9 L (8.4-10.2) mg/dL Magnesium 1.4 L (1.6-2.3) mg/dL AST 42 H (14-36) U/L Total Protein 4.3 L (6.3-8.2) g/dL Albumin 2.0 L (3.5-5.0) g/dL Assessment and Plan (1) Intra-abdominal abscess Current Visit: Yes Status: Acute Code(s): K65.1 - PERITONEAL ABSCESS SNOMED Code(s): 32315548 (2) Allergy to multiple antibiotics Current Visit: Yes Status: Acute Code(s): Z88.1 - ALLERGY STATUS TO OTHER ANTIBIOTIC AGENTS SNOMED Code(s): 015861068 (3) Perforated viscus Current Visit: Yes Status: Acute Code(s): R19.8 - OTH SYMPTOMS AND SIGNS INVOLVING THE DGSTV SYS AND ABDOMEN SNOMED Code(s): 311319017 Plan: 1patient presented to hospital with abdominal pain has been diagnosed with a perforated viscus in this patient was status post laparotomy with evidence of perforated sigmoid diverticulitis status post laparotomy sigmoid colectomy and end colostomy for likely organism need to cover will be enteric gram-negative both aerobes and anaerobes 2-patient did have repeat CT has with evidence of partial versus complete bowel obstruction NG has been placed which has been clamped now, patient noted slight worsening of the white count yesterday we will repeat a CBC tomorrow and continue with the cefepime and Flagyl and monitor clinical course closely Dictation was produced using [employer] software. please excuse any grammatical, word or spelling errors. Time with Patient: Less than 30
--- NOTE | 2023-12-18 13:24 | P.PN ---
Subjective Progress Note Date: 12/18/23 This is a 78-year-old female patient with a history of rheumatoid arthritis, hypertension, hyperlipidemia, gastroesophageal reflux disease chronic obstructive pulmonary disease with chronic and ongoing tobacco dependence. She presented to the emergency room early this morning with complaints of severe e pigastric abdominal pain. She has a prior history of gastric ulcers and frequently has abdominal pain. ET scan of the abdomen revealed evidence of free air. Gastric or proximal duodenal ulcer perforation was suspected given severe gastric antral wall thickening. Chest x-ray revealed no acute pulmonary process. White count 8.8. Hemoglobin 12.5. Platelets 263. Sodium 138. Potassium 4.0. Bicarb 23. BUN 19. Creatinine 0.51. Glucose 102. Viral screen was negative. Lipase 11. Amylase less than 30. AST 56. ALT 48. She was taken to the operating room and had undergone a full oratory laparotomy, sigmoid colectomy and end colostomy for a perforated sigmoid diverticulitis. She remained intubated and on the mechanical ventilator and transferred to the intensive care unit. Current vent to later settings are assist-control mode at a rate of 14, tidal line 350, FiO2 100% and a PEEP of 5. She is sedated on propofol at 20 mcg/kg/min. She has lactated Ringer's at 125 MLS per hour. She is on antibiotics in the form of Levaquin and Flagyl. Abdominal dressing is dry and intact. There is a left colostomy in place. Right radial arterial line in place. She is somewhat hypertensive and initiated on Cleviprex infusion 1 mg/h. Dilaudid for pain control. The patient is seen today December 09, 2023 in follow-up in the intensive care unit. She remains intubated on mechanical ventilator. Current settings are assist-control mode at a rate of 20, tidal line 350, FiO2 30% and a PEEP of 5. Morning blood gases reveal a pO2 of 165, pCO2 39 and a pH of 7.43. These were on FiO2 40%. Sedated on propofol at 20 mics per kilogram per minute. Lactated Ringer's at 125 MLS per hour. She remains on bronchodilators. Antibiotics in the form of cefepime and Flagyl. Heparin for DVT prophylaxis. Chest x-ray reveals no significant change. Evidence of COPD. The patient is seen today December 10, 2023 in follow-up in the intensive care unit. She is awake and alert in no acute distress. She is maintaining good O2 saturations in the 90s on room air. She has lactated Ringer's at 125 MLS per hour. Nasogastric tube remains in place. He is continued on DuoNeb ventilations, Pulmicort and perform scintillations, Singulair. NicoDerm patch in place. She remains on heparin for DVT prophylaxis. Antibiotics in the form of cefepime and Flagyl. Wound culture positive for gram-negative bacilli. White count 13.8. Hemoglobin 10.8. Platelets 255. Sodium 133. Potassium 3.8. Bicarb 24. BUN 20. Creatinine 0.80. Glucose 201 after treatment for hypoglycemia. Currently NPO. Chest x-ray reveals patchy density in the right lower lobe and slight increase in small basilar effusions. The patient is seen today December 11, 2023 in follow-up on the selective care unit. She was transferred out of the ICU yesterday. She is awake and alert in no acute distress. Sitting up in bed. Maintaining good O2 saturations in the 90s on room air. She remains NPO. She remains with a night nasogastric tube in place. She is D5.45 normal saline at 125 MLS per hour. Wound culture was positive for E. coli. Abdominal dressing dry and intact. Ostomy present, nonfunctioning thus far. Blood sugar 133. She is continued on DuoNeb ventilations, Pulmicort and Perforomist inhalations. NicoDerm patch applied. Utilizing NicoDerm gum. Antibiotics in the form of cefepime and Flagyl. Heparin for DVT prophylaxis. On today's evaluation of On today's evaluation of 12/12/2023, the patient is being seen for a follow-up. The patient is still recovering from her surgery. The patient is currently on room air oxygen. Noted the patient remains NPO. Bowel sounds are quite hypoactive and nearly absent and there is no functionality in her colostomy bag. No significant output has been noted. The patient denies having any nausea or vomiting. Some vague abdominal discomfort in the right lower quadrant area. Otherwise, she has no other new complaints. The surgical scar is dry clean and intact. The patient remains on IV cefepime and Flagyl. The patient is afebrile. Hemodynamically stable. BUN is at 6 with a creatinine of 0.38 and a potassium level is at 2.9 that needs to be replaced and the sodium levels at 132. WBC count of 13.2 with a hemoglobin 12.4. Patient is using the incentive spirometer. She is ambulating. No altered mentation. No other significant issues otherwise. NG tube was removed yesterday. As for the intra-abdominal wounds, it is growing anaerobic gram-negative bacilli in addition to E. coli and Streptococcus. The patient is afebrile. Antibiotic coverage is adequate for now. The patient is known to have previous history of RA, hypertension, hyperlipidemia, COPD and previous history of smoking. The patient was diagnosed having a perforated sigmoid diverticulitis and the patient has undergone exploratory laparotomy, sigmoid colectomy and end colostomy. On 12/13/2023, the patient is on room air oxygen and the patient is calm and comfo rtable. No significant respite distress. Bowel sounds are hypoactive. Nevertheless, the patient was able to pass stool in the colostomy bag. She continues to have some limited abdominal tenderness.She remains hemodynamically stable with a white cell count of 15.8 and a hemoglobin of 11.9 and his sodium level is at 135 with a potassium level of 2.9 and a BUN of 7 with a creatinine of 0.46. The patient remains on Flagyl and cefepime as a broad-spectrum antibiotic coverage as the patient has shown some anaerobic growth and E. coli and Streptococcus alphahemolytic in the abdominal cultures. In terms of her morning abdominal x-ray, it showed some nonspecific findings and there was a tiny left-sided pleural effusion. On today's evaluation of 12/14/2023, the patient is tolerating clear liquid diet. She is on room air oxygen. No significant respite distress. No cough or sputum production. No chest tightness or wheezing. No abdominal pain. Her colostomy is functional. She remains on broad-spectrum antibiotics. She is afebrile.There was because of 10.6 with a hemoglobin 10.8 and a platelet count of 274. BUN is at 8 with a creatinine of 0.4 and sodium levels at 130. Surgical wound is dry clean and intact. Colostomy is functional. ID is on the case. General surgery is on the case. She remains on room air oxygen. On 12/15/2023, the patient is doing well. Tolerating diet. Colostomy is functional. No signs of any significant respiratory distress. No fever or chills. No Abdominal pain. The white cell count 11 with a hemoglobin 11.4 and platelet count of 294. Sodium level is 132, potassium level of 3.6, BUN is at 10 with a creatinine of 0.5. Abdominal cultures are still positive for anaerobes gram-negative, E. coli and alphahemolytic strep and the patient remai ns on IV cefepime for now. The patient remains also on bronchodilators patient is currently on room air oxygen. She has a nicotine patch. She is on metoprolol 50 mg p.o. twice a day. She is also on heparin subcu for DVT prophylaxis. No other significant events. She feels much better compared to yesterday. On 12/16/2023, I am seeing the patient for a follow-up. The patient is doing well. Tolerating clear liquid diet. Colostomy is functional. No significant complaints other than some occasional abdominal discomfort and tenderness. Surgical wound is clean dry and intact at this point in time. WBC count of 12.7 with a hemoglobin 11.9 and platelet count of 339. Blood sugars at 94. Remains on the same antibiotic coverage. Remains on bronchodilators. Continues to use incentive spirometer. She has a nicotine patch. No other significant events. She is able to transition to a chair and she is doing some limited amount of mobility. Her body mass index is 14.3. On today's evaluation of 10/16/2024, the patient is being seen for a follow-up. The patient is having issues with abdominal ileus. She had some increased abdominal pain yesterday and based on that she was given a CAT scan of the abdomen that showed partial versus complete bowel obstruction and the transition point cannot be completely identified. There was also anasarca with bilateral pleural effusion and ascites and postsurgical changes in the abdomen. Despite these findings, the patient's colostomy is still showing positive output. Based on those findings, an NG tube was placed and the patient was kept n.p.o. NG tube was produced approximate 200 cc of gastric material. The abdomen is soft. The patient will get a PICC line for subsequent TPN feeding. Otherwise, she is awake and alert, she is weak, the white cell count of 19.2 with hemoglobin 13 and a platelet count of 411. Electrolytes are still pending for now. No other significant events otherwise for now. Remains on IV cefepime and Flagyl. 12/18/2023, the patient is being seen for a follow-up. The patient is stable. The patient is currently on TPN for nutritional support. NG tube is in place. Abdomen is soft. There is some minimal amount of tenderness and based on that, the patient is going to undergo another CAT scan of the abdomen today.The patient is currently NPO. Output from the NG tube is minimal. BUN is at 19 wi th a creatinine of 0.6 and his sodium level is at 131. LFTs are essentially within normal limits. There was some increase in the white cell count yesterday. CBC from today is still pending. The patient remains on room air oxygen with a pulse ox of 94%. She is awake and alert and communicating. Objective - Vital Signs Vital signs: Vital Signs Temp 97.2 F L 12/18/23 07:35 Pulse 85 12/18/23 09:20 Resp 16 12/18/23 09:02 BP 135/82 12/18/23 07:35 Pulse Ox 94 L 12/18/23 07:35 FiO2 30 12/09/23 10:00 Intake & Output 12/17/23 12/18/23 12/18/23 18:59 06:59 18:59 Output Total 300 Balance -300 Weight 42.3 kg Output: Gastric Drainage 300 Other: Voiding Method Bedpan # Voids 1 5 ABP, PAP, CO, CI - Last Documented Arterial Blood Pressure 119/92 - Exam GENERAL EXAM: Awake, sitting up in bed, 78-year-old female, on room air, in no apparent distress. The patient is currently on room air oxygen by nasal cannula and the patient has an NG tube in place HEAD: Normocephalic. EYES: Sluggish reaction of pupils, equal size. NOSE: Clear with pink turbinates. THROAT: Nasogastric tube secured in place. No erythema or exudates. NECK: No masses, no JVD. CHEST: No chest wall deformity. LUNGS: Equal air entry with faint crackles in the posterior bases. CVS: S1 and S2 normal with no audible murmur, regular rhythm. ABDOMEN: Abdominal dressing dry and intact. Left abdominal ostomy output is present. Bowel sounds are hypoactive SPINE: No scoliosis or deformity SKIN: No rashes CENTRAL NERVOUS SYSTEM: Sedated, tone is normal in all 4 extremities. EXTREMITIES: Right radial arterial line in place there is no peripheral edema. No clubbing, no cyanosis. Peripheral pulses are intact. - Labs CBC & Chem 7: 12/17/23 06:03 12/18/23 07:14 Labs: Abnormal Lab Results - Last 24 Hours (Table) 12/17/23 12/17/23 12/17/23 Range/Units 14:19 19:26 20:01 Sodium 129 L (137-145) mmol/L Potassium (3.5-5.1) mmol/L BUN 18 H (7-17) mg/dL Glucose 70 L (74-99) mg/dL POC Glucose (mg/dL) 62 L 138 H (70-110) mg/dL Calcium (8.4-10.2) mg/dL Magnesium 1.4 L (1.6-2.3) mg/dL AST 39 H (14-36) U/L Total Protein 4.8 L (6.3-8.2) g/dL Albumin 2.3 L (3.5-5.0) g/dL 12/18/23 12/18/23 Range/Units 07:14 07:14 Sodium 131 L (137-145) mmol/L Potassium 3.3 L (3.5-5.1) mmol/L BUN 19 H (7-17) mg/dL Glucose 104 H (74-99) mg/dL POC Glucose (mg/dL) (70-110) mg/dL Calcium 7.9 L (8.4-10.2) mg/dL Magnesium 1.4 L (1.6-2.3) mg/dL AST 42 H (14-36) U/L Total Protein 4.3 L (6.3-8.2) g/dL Albumin 2.0 L (3.5-5.0) g/dL Assessment and Plan Plan: Severe acute abdominal pain secondary to perforated sigmoid diverticulitis. St atus post exploratory laparotomy, sigmoid colectomy, end colostomy. Postoperative day # 10 there is output in the colostomy bag. Bowel sounds are hypoactive. Intra-abdominal wounds have shown anaerobic gram-negative bacillus and E. coli and Streptococcus, thrombolytic and the patient remains on a combination of cefepime and Flagyl.. The patient has already versus complete bowel obstruction and based on that, the patient was kept n.p.o. and NG tube decompression was offered to this patient. Output from the NG tube is minimal and the abdomen is nondistended. There is positive output in the colostomy bag. The patient is currently on TPN for nutritional support. A repeat CAT scan of the abdomen will be obtained today. Acute hypoxemic respiratory failure secondary to above requiring prolonged ventilation postoperatively recovered and on room air Severe protein calorie malnutrition with a BMI of less than 20 kg/m, currently at 14.3 History of gastric ulcers and esophagitis History of rheumatoid arthritis History of chronic obstructive pulmonary disease History of chronic tobacco dependence History of hypertension History of hyperlipidemia History of gastroesophageal reflux disease Plan Keep the patient n.p.o. Keep NG tube in place Increase mobility Repeat the CT scan of the abdomen per surgical recommendations Monitor the white cell count Patient is currently on room air oxygen Colostomy is functional Continue using incentive spirometer Continue IV Flagyl and cefepime, abdominal wound cultures were noticed and the findings are essentially unchanged Continue with DuoNeb updrafts Continue Perforomist and Pulmicort nebulized treatments twice a day Patient has a nicotine patch Patient is seeing Eric for pain control and her pain is under adequate control for now PICC line along with TPN for nutritional support Heparin subcu for DVT prophylaxis
[2023-12-18] MEDS: IOPAMIDOL CONTRAST (ORAL USE) VIAL PO PRN (15:26)
[2023-12-18 16:27] LABS: Glucose,Whole Blood 119 mg/dL (70-110)
--- NOTE | 2023-12-18 16:51 | P.PN ---
Progress Note - Text Progress Note Date: 12/18/23 - Chief Complaint Abdominal pain - History of Present Illness This is a pleasant 78-year-old patient, chronic stable medical conditions include COPD, hypertension, rheumatoid arthritis. Patient is active smoker. Patient with 3 days been having increasing abdominal pain. Presented to the ER. CT scan showed free air. Patient was taken to the OR yesterday by Dr. Lentz. Underwent exploratory laparotomy. Found to have a perforated sigmoid d iverticulitis. Sigmoid colectomy with end colostomy was done. Today in the ICU: Extubated earlier today. 2 L nasal cannula. Has NG tube to suction. No output in the colostomy bag. Son at the bedside. Pain at the surgical site. December 10: Patient moved out of the ICU. NG tube to intermittent suction. Did not sleep well yesterday. States when she tries to close her eyes she starts hallucinating. Given one-time dose of Haldol. Having significant pain at the operative site. Pain medications per surgical team. No output through colostomy bag. Discussed with nurse. Sons at the bedside. Also added Nicorette gum as needed. Hypoglycemia: Change IV fluids to D5.45. Patient on IV cefepime and IV Flagyl. December 11: NG tube in place. Plan for it to be discontinued this afternoon. Very little output from the colostomy bag. Did sleep her last night.'s some hallucinations. Discussed with the patient's son. Try to cut back on IV narcotics balance between pain control and side effects. December 12: NG tube was discontinued yesterday. Remains NPO per surgery. No output from the colostomy bag. Did not sleep well last night. Chewing gum ordered. Remains on IV cefepime. IV Flagyl. For blood pressure start Catapres patch 0.2. December 13: Patient be started on clear liquids by surgery. Some stool from the colostomy bag. Pain better. Pain switched over to oral pain medications. Abdominal wound cultures growing E. coli and alphahemolytic Streptococcus. Remains on IV cefepime and IV Flagyl. Abdominal pain better. December 14: Patient having dark stool output through the colostomy bag. Did sit up in a chair. On full liquid diet. Patient requested to have a home dose of Percocet as opposed to [place]. Ordered. Blood pressure running high. Increase Lopressor to 50 mg twice daily. December 15: Patient advance to low fiber diet today. Eating some. Abdominal pain much better. Colostomy bag working. 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 December 16: Patient complaining of increasing abdominal pain. More distention. Some stool from the colostomy bag. Patient made NPO. On antibiotics. CT scan abdomen ordered. December 17: Continues to have abdominal pain. NG tube to suction. Some stool in the colostomy bag. CT scan from yesterday showed partial versus complete bowel obstruction. December 18: Abdominal pain present. NG tube to suction. Some stool in the colostomy bag. On IV cefepime and IV Flagyl. Tired. Active Medications Albuterol Sulfate (Albuterol Nebulized 2.5 Mg/3 Ml) 2.5 mg INHALATION RT-Q4H PRN PRN Reason: Shortness Of Breath Albuterol/Ipratropium (Ipratropium-Albuterol 3 Ml Neb) 3 ml INHALATION RT-Q2H PRN PRN Reason: Shortness Of Breath Or Wheezing Albuterol/Ipratropium (Ipratropium-Albuterol 3 Ml Neb) 3 ml INHALATION RT-QID [facility] Last Admin: 12/18/23 16:26 Dose: Not Given Atorvastatin Calcium (Atorvastatin 20 Mg Tab) [address] [facility] Last Admin: 12/18/23 09:11 Dose: 20 mg Baclofen (Baclofen 10 Mg Tab) [address] [facility] Last Admin: 12/17/23 20:50 Dose: 10 mg Benzocaine (Benzocaine [place] 1 Can) 1 spray MUCOUS MEM QID PRN; Protocol PRN Reason: Mouth Irritation Last Admin: 12/10/23 00:20 Dose: 1 spray Benzocaine/Menthol (Benzocaine/Menthol Lozeng 1 Each Lozenge) 1 each MUCOUS MEM Q4HR PRN PRN Reason: Sore Throat Last Admin: 12/16/23 18:17 Dose: 1 each Budesonide (Budesonide 1 Mg/2 Ml Nebu) 1 mg INHALATION RT-BID [facility] Last Admin: 12/18/23 09:02 Dose: 1 mg Clonidine HCl (Clonidine 0.2 Mg/24hr Patch) [address] [facility] Last Admin: 12/12/23 17:17 Dose: 1 patch Dextrose/Water (Dextrose 50% Syringe 50 Ml) 25 ml IVP PER PROTOCOL PRN; Protocol PRN Reason: Hypoglycemia Last Admin: 12/17/23 19:34 Dose: 25 ml Dextrose/Water (Dextrose 50% Syringe 50 Ml) 50 ml IVP PER PROTOCOL PRN; Protocol PRN Reason: Hypoglycemia Formoterol Fumarate (Formoterol Fumarate 20 Mcg/2 Ml Nebu) 20 mcg INHALATION RT-BID ANN Last Admin: 12/18/23 09:02 Dose: 20 mcg Heparin Sodium (Porcine) (Heparin Sodium,Porcine 5,000 Unit/Ml 1 Ml Vial) 5,000 unit SQ Q8HR ANN Last Admin: 12/18/23 15:29 Dose: 5,000 unit Hydroxychloroquine Sulfate (Hydroxychloroquine Sulfate 200 Mg Tab) 200 mg PO BID ANN Last Admin: 12/18/23 09:11 Dose: 200 mg Cefepime HCl 2 gm/ Sodium (Chloride) 100 mls @ 25 mls/hr IVPB Q12HR ANN; Wally col Last Admin: 12/18/23 09:12 Dose: 25 mls/hr Metronidazole 500 mg/ IV (Solution) 100 mls @ 100 mls/hr IVPB Q8HR ANN; Protocol Last Admin: 12/18/23 15:29 Dose: 100 mls/hr Acetaminophen 550 mg/ IV (Solution) 55 mls @ 220 mls/hr IVPB Q8HR PRN PRN Reason: Pain Stop: 12/22/23 23:00 Last Admin: 12/17/23 20:42 Dose: 220 mls/hr Dextrose/Sodium Chloride (Dextrose 5%-Ns Iv Soln) 1,000 mls @ 100 mls/hr IV .Q10H ANN Last Admin: 12/18/23 15:26 Dose: Not Given Iopamidol (Iopamidol Contrast (Oral Use) Vial) 30 ml PO Q60M PRN PRN Reason: CT Scan Stop: 12/19/23 11:27 Last Admin: 12/18/23 15:26 Dose: 30 ml Metoprolol Tartrate (Metoprolol Tartrate 5 Mg/5 Ml Vial) 5 mg IVP Q6HR PRN PRN Reason: Blood Pressure - High Last Admin: 12/16/23 21:54 Dose: 5 mg Metoprolol Tartrate (Metoprolol Tartrate 50 Mg Tab) [address] [facility] Last Admin: 12/18/23 09:11 Dose: 50 mg Miscellaneous Information (Magnesium Replacement Protocol 1 Each Misc) 1 each MISCELLANE DAILY PRN; Protocol PRN Reason: Per Protocol Miscellaneous Information (Potassium Replacement Protocol 1 Each Misc) 1 each MISCELLANE DAILY PRN; Protocol PRN Reason: Per Protocol Montelukast Sodium (Montelukast 10 Mg Tab) [address] [facility] Last Admin: 12/18/23 09:11 Dose: 10 mg Morphine Sulfate (Morphine Sulfate 4 Mg/Ml Syringe) 4 mg IVP Q3HR PRN PRN Reason: Pain Last Admin: 12/18/23 15:29 Dose: 4 mg Naloxone HCl (Naloxone 0.4 Mg/Ml 1 Ml Vial) 0.2 mg IV Q2M PRN PRN Reason: Opioid Reversal Nicotine (Nicotine 21mg/24hr Patch) [address] [facility] Last Admin: 12/18/23 09:11 Dose: 1 patch Nicotine Polacrilex (Nicotine Gum (Polacrilex) 2 Mg Gum) 2 mg BUCCAL Q4HR PRN PRN Reason: Nicotine Cravings Oxycodone/Acetaminophen (Oxycodone-Apap 7.5-325mg 1 Each Tab) 1 each PO Q6H PRN PRN Reason: Pain Last Admin: 12/16/23 16:11 Dose: 1 each Pantoprazole Sodium (Pantoprazole 40 Mg Tablet) 40 mg PO AC-BID [facility] Last Admin: 12/18/23 15:29 Dose: Not Given Temazepam (Temazepam 15 Mg Cap) 15 mg PO HS PRN PRN Reason: Insomnia Last Admin: 12/15/23 23:36 Dose: 15 mg Social history: Patient been smoking for many years. Was up to 4 packs a day. Now down to a pack a day. Works at [email or web address]. Lives with her son. Physical examination: VITAL SIGNS: 97 7, 78, 18, 138 x 76, 94% room air GENERAL: Laying in bed uncomfortable EYES: Pupils equal. Conjunctiva normal HEENT: External appearance of nose and ears normal, oral cavity grossly normal. Diminished hearing in the right ear. NG tube to suction NECK: JVD not raised; masses not palpable. HEART: First and second heart sounds are normal; no edema. LUNGS:[ Respiratory rate increased, diminished breath sounds. ABDOMEN: Soft, tender, distention , no guarding rigidity, liver spleen not palpable, no masses palpable. Left-sided colostomy bag-some dark stool. PSYCH: [Alert and oriented x3; mood and affect anxious. MUSCULOSKELETAL:No Clubbing/cyanosis;muscles-grossly intact INVESTIGATIONS, reviewed in the clinical context: December 18: Sodium 131 potassium 3.3 December 17: White count 9.2 hemoglobin 13.2 sodium 129 potassium 3[address] scan abdomen [December 16]: Evidence of possibly complete bowel obstruction possibly December 16: White count 12.7 hemoglobin 11.9 December 15: White count 11 hemoglobin 11.4 potassium 3.6 creatinine 0.55 Abdominal wound culture: E. coli and alphahemolytic Streptococcus. December 09: White count 10.8 hemoglobin 10.9 platelets 254 sodium 135 potassium 3.8 BUN 20 creatinine 0.61 Chest x-ray film personally reviewed by me-hyperinflation Telemetry strip bedside monitor: Personally reviewed by me. Sinus rhythm CT scan abdomen pelvis: Moderate prominence of the stomach. Severe wall thickening of the gastric antrum. Distal colonic diverticulosis. Free air i dentified anterior to the bladder. Assessment and plan: -Acute sigmoid diverticulitis with perforation. Cultures growing E. coli and alphahemolytic Streptococcus: Worsening abdominal symptoms today.: Slow to respond Patient underwent sigmoid resection and formation of her colostomy on December [address] Lentz. Made NPO. CT scan abdomen [December 16:] Possibly near complete bowel obstruction. NG tube reinserted IV cefepime and IV Flagyl. -Severe hypokalemia: Replaced Replace potassium -Secondary peritonitis from hollow viscus perforation IV cefepime and IV Flagyl. ID following -COPD and a current smoker DuoNeb 3 times daily. Singulair.. Breztri inhaler -Chronic nicotine dependence, cigarette smoker Nicotine patch -Hyperlipidemia Lipitor 20 mg a day -Severe protein calorie malnutrition. BMI 18.3. Dietitian on the case -Chronic muscle spasm Baclofen as needed -Peptic ulcer disease PPI -Hypoglycemia from poor oral intake: Better -Essential hypertension. Better controlled Lopressor to 50 mg twice daily -Insomnia with hallucinations. Restoril. NG tube to suction. IV fluids. IV cefepime and IV Flagyl. Would consider TPN lipids s if no significant improvement Thank you Dr. Lentz Past Medical History Past Medical History: COPD, Hypertension, Rheumatoid Arthritis (RA) Additional Past Medical History / Comment(s): bleeding ulcer History of Any Multi-Drug Resistant Organisms: None Reported Past Surgical History: Tubal Ligation Additional Past Surgical History / Comment(s): Eye surgery (cataracts removed). Past Anesthesia/Blood Transfusion Reactions: No Reported Reaction Past Psychological History: No Psychological Hx Reported Smoking Status: Current every day smoker Past Alcohol Use History: Rare Past Drug Use History: None Reported
--- NOTE | 2023-12-18 17:30 | CT ---
EXAMINATION TYPE: CT abdomen pelvis w con CT DLP: 552.8 mGycm, Automated exposure control for dose reduction was used. DATE OF EXAM: 12/18/2023 5:17 PM COMPARISON: CT abdomen pelvis most recent from 12/16/2023 CLINICAL INDICATION:Female, 78 years old with history of Ileus/bowel obstruction; Ileus/bowel obstruc tion TECHNIQUE: Axial CT of the abdomen and pelvis. Sagittal and coronal reformats were created on a Banjo workstation. Contrast used:100ml mL of Isovue 300 with IV Contrast, (none if empty) Oral contrast used: with Oral Contrast (none if empty) FINDINGS: LOWER CHEST: Stable partially visualized pleural effusions. ABDOMEN LIVER: Scattered hepatic cysts are identified throughout the liver. GALLBLADDER AND BILE DUCTS: Unremarkable. PANCREAS: Unremarkable. SPLEEN: Unremarkable. ADRENAL GLANDS: Unremarkable. KIDNEYS AND URETERS: No evidence of hydronephrosis or renal calculus. The ureters are unremarkable. PELVIS BLADDER: Unremarkable REPRODUCTIVE: Unremarkable. ABDOMEN & PELVIS STOMACH AND BOWEL: Redemonstration of dilated loops of small bowel noted throughout the abdomen measu ring up to 3.4 cm, not significantly changed compared to the prior CT, stable location of suspected t ransition point within the lower midabdomen (see arrow). The colon is of normal caliber. No evidence of contrast is seen extending into the region of the colon. PERITONEUM/RETROPERITONEUM: No evidence o f pneumoperitoneum. Mesenteric edema is again identified as well small free fluid within the pelvis. VASCULATURE: Mild atherosclerotic calcifications are present throughout the abdominal aorta and its b ranches. No evidence of aortic aneurysm. MUSCULOSKELETAL: No acute osseous abnormalities. Mild disc degeneration changes are present throughou t the thoracolumbar spine. LYMPH NODES: No gross evidence for lymphadenopathy. SOFT TISSUE/ABDOMINAL WALL: Soft tissue anasarca. Postsurgical changes anteriorly. IMPRESSION: Redemonstrated and overall stable appearance of findings concerning for small bowel obstruction with dilated small bowel loops and suspected transition point within the lower abdomen. No contrast is vis ualized extending into the colon. Follow-up abdominal radiographs could be utilized to evaluate trans ition of contrast through the transition point.
[2023-12-18 20:42] LABS: Glucose,Whole Blood 123 mg/dL (70-110)
[2023-12-19 03:42] LABS: Glucose,Whole Blood 111 mg/dL (70-110)
[2023-12-19 06:20] LABS: INR 1.1 (<1.2)
[2023-12-19 06:50] LABS: Magnesium 1.4 mg/dL (1.6-2.3); Phosphorus 2.6 mg/dL (2.5-4.5)
[2023-12-19 06:52] LABS: ALT 26 U/L (4-34); AST 40 U/L (14-36); African American GFR (CKD) >90 (>60 ml/min/1.73 sqM); Albumin 2.1 g/dL (3.5-5.0); Albumin/Globulin Ratio 0.9; Alkaline Phosphatase 62 U/L (38-126); Anion Gap 0 mmol/L; Blood Urea Nitrogen 13 mg/dL (7-17); Calcium 7.8 mg/dL (8.4-10.2); Carbon Dioxide 30 mmol/L (22-30); Chloride 103 mmol/L (98-107); Globulin 2.4 g/dL; Glucose 102 mg/dL (74-99); Non-African American GFR(CKD) 89 (>60 ml/min/1.73 sqM); Potassium 3.1 mmol/L (3.5-5.1); Sodium 133 mmol/L (137-145); Total Bilirubin 0.5 mg/dL (0.2-1.3); Total Protein 4.5 g/dL (6.3-8.2)
[2023-12-19] MEDS ORDERED: Potassium Replacement Protocol 1 EACH MISC MISCELLANE PRN (08:20)
[2023-12-19 08:32] LABS: Basophils % (A) 0.9 %; Eosinophils # (A) 0 X 10*3/uL (0.04-0.35); Eosinophils % (A) 0 %; HCT 33.6 % (37.2-46.3); HGB 10.9 g/dL (12.0-15.0); Lymphocytes # (A) 0.83 X 10*3/uL (0.90-5.00); Lymphocytes % (A) 7.2 %; MCH 30.7 pg (27.0-32.0); MCHC 32.4 g/dL (32.0-37.0); MCV 94.6 FL (80.0-97.0); Mean Platelet Volume 9.8 FL (9.5-12.2); Monocytes # (A) 0.95 X 10*3/uL (0.20-1.00); Monocytes % (A) 8.2 %; NRBC Per 100 WBC 0 X 10*3/uL (0.00-0.01); Neutrophils # (A) 9.53 X 10*3/uL (1.80-7.70); Neutrophils % (A) 82.6 %; Platelet Count 386 X 10*3/uL (140-440); RBC 3.55 X 10*6/uL (4.10-5.20); WBC 11.54 X 10*3/uL (4.50-10.00)
[2023-12-19 09:52] LABS: Glucose,Whole Blood 100 mg/dL (70-110)
[2023-12-19] MEDS: POTASSIUM CHLORIDE 10 MEQ in WATER FOR INJECTION 1 100ML.BAG IVPB SCH (11:02)
--- NOTE | 2023-12-19 11:28 | P.PN ---
Subjective Progress Note Date: 12/19/23 Principal diagnosis: Reason for follow-up is perforated diverticulitis and abscess Patient is a 78-year-old female with a past medical history significant for COPD hypertension rheumatoid arthritis presenting to the ER for evaluation of epigastric abdominal pain, patient did have a CT abdominal pelvis concerning for free subsequently taken to the OR status post laparotomy with evidence of perforated sigmoid diverticulitis status post sigmoid colectomy and end colostomy. On today's evaluation that is 12/19/2023, the patient continues to be afebrile, the patient is on room air and breathing comfortably, the Pt denies having any chest pain she did have some cough but not bring up any sputum the patient abdominal pain has decreased in intensity still have the NG for suction. Patient white count is down to 11.54, creatinine 0.59 Objective - Vital Signs Vital signs: Vital Signs Temp 98.5 F 12/19/23 07:44 Pulse 78 12/19/23 08:46 Resp 18 12/19/23 07:44 BP 161/71 12/19/23 07:44 Pulse Ox 94 L 12/19/23 07:44 FiO2 30 12/09/23 10:00 Intake & Output 12/18/23 12/19/23 12/19/23 18:59 06:59 18:59 Output Total 300 100 250 Balance -300 -100 -250 Output: Gastric Drainage 300 100 250 Other: Voiding Method Bedpan # Voids 5 5 1 ABP, PAP, CO, CI - Last Documented Arterial Blood Pressure 119/92 - Exam GENERAL DESCRIPTION: An elderly female lying in bed in no distress RESPIRATORY SYSTEM: Unlabored breathing , decreased breath sounds at bases HEART: S1 S2 regular rate and rhythm , ABDOMEN: Soft , mild tenderness EXTREMITIES: No edema feet - Labs CBC & Chem 7: 12/19/23 05:26 12/19/23 05:26 Labs: Abnormal Lab Results - Last 24 Hours (Table) 12/18/23 12/18/23 12/19/23 Range/Units 16:26 20:32 03:38 WBC (4.50-10.00) X 10*3/uL RBC (4.10-5.20) X 10*6/uL Hgb (12.0-15.0) g/dL Hct (37.2-46.3) % Immature Gran # (0.00-0.04) X 10*3/uL Neutrophils # (1.80-7.70) X 10*3/uL Lymphocytes # (0.90-5.00) X 10*3/uL Eosinophils # (0.04-0.35) X 10*3/uL Sodium (137-145) mmol/L Potassium (3.5-5.1) mmol/L Glucose (74-99) mg/dL POC Glucose (mg/dL) 119 H 123 H 111 H (70-110) mg/dL Calcium (8.4-10.2) mg/dL Magnesium (1.6-2.3) mg/dL AST (14-36) U/L Troponin I (0.000-0.034) ng/mL C-Reactive Protein (<1.0) mg/dL Total Protein (6.3-8.2) g/dL Albumin (3.5-5.0) g/dL 12/19/23 12/19/23 12/19/23 Range/Units 05:26 05:26 05:26 WBC 11.54 H (4.50-10.00) X 10*3/uL RBC 3.55 L (4.10-5.20) X 10*6/uL Hgb 10.9 L (12.0-15.0) g/dL Hct 33.6 L (37.2-46.3) % Immature Gran # 0.13 H (0.00-0.04) X 10*3/uL Neutrophils # 9.53 H (1.80-7.70) X 10*3/uL Lymphocytes # 0.83 L (0.90-5.00) X 10*3/uL Eosinophils # 0 L (0.04-0.35) X 10*3/uL Sodium 133 L (137-145) mmol/L Potassium 3.1 L (3.5-5.1) mmol/L Glucose 102 H (74-99) mg/dL POC Glucose (mg/dL) (70-110) mg/dL Calcium 7.8 L (8.4-10.2) mg/dL Magnesium 1.4 L (1.6-2.3) mg/dL AST 40 H (14-36) U/L Troponin I (0.000-0.034) ng/mL C-Reactive Protein 3.0 H (<1.0) mg/dL Total Protein 4.5 L (6.3-8.2) g/dL Albumin 2.1 L (3.5-5.0) g/dL 12/19/23 Range/Units 09:15 WBC (4.50-10.00) X 10*3/uL RBC (4.10-5.20) X 10*6/uL Hgb (12.0-15.0) g/dL Hct (37.2-46.3) % Immature Gran # (0.00-0.04) X 10*3/uL Neutrophils # (1.80-7.70) X 10*3/uL Lymphocytes # (0.90-5.00) X 10*3/uL Eosinophils # (0.04-0.35) X 10*3/uL Sodium (137-145) mmol/L Potassium (3.5-5.1) mmol/L Glucose (74-99) mg/dL POC Glucose (mg/dL) (70-110) mg/dL Calcium (8.4-10.2) mg/dL Magnesium (1.6-2.3) mg/dL AST (14-36) U/L Troponin I 0.167 H* (0.000-0.034) ng/mL C-Reactive Protein (<1.0) mg/dL Total Protein (6.3-8.2) g/dL Albumin (3.5-5.0) g/dL Assessment and Plan (1) Intra-abdominal abscess Current Visit: Yes Status: Acute Code(s): K65.1 - PERITONEAL ABSCESS SNOMED Code(s): 23968810 (2) Allergy to multiple antibiotics Current Visit: Yes Status: Acute Code(s): Z88.1 - ALLERGY STATUS TO OTHER ANTIBIOTIC AGENTS SNOMED Code(s): 766634440 (3) Perforated viscus Current Visit: Yes Status: Acute Code(s): R19.8 - OTH SYMPTOMS AND SIGNS INVOLVING THE DGSTV SYS AND ABDOMEN SNOMED Code(s): 340870397 Plan: 1patient presented to hospital with abdominal pain has been diagnosed with a perforated viscus in this patient was status post laparotomy with evidence of perforated sigmoid diverticulitis status post laparotomy sigmoid colectomy and end colostomy for likely organism need to cover will be enteric gram-negative both aerobes and anaerobes 2-patient did have repeat CT has with evidence of partial versus complete bowel obstruction NG has been placed which the patient has been tolerating 3- patient white count is trending down we will keep the patient on cefepime and Flagyl and monitor clinical course closely Dictation was produced using Chorus dictation software. please excuse any grammatical, word or spelling errors. Time with Patient: Less than 30
[2023-12-19] MEDS: LIDOCAINE 1% INJ 10MG/ML (20 ML MDV) SQ ONE (11:59)
--- NOTE | 2023-12-19 12:09 | P.PCN ---
Date of Procedure: 12/19/23 Preoperative Diagnosis: perforated diverticulitis, intra-abdominal abscess, need for TPN Postoperative Diagnosis: same Procedure(s) Performed: right basilic vein PICC placement under ultrasound and fluoroscopic guidance Anesthesia: local Surgeon: Shreyas Gupta Pathology: none sent Condition: stable Disposition: floor Description of Procedure: After written and informed consent was obtained the patient and all risks, benefits and competitions were described the patient was brought to the Food Equipment Service Technician and laid in a supine position with his right arm outstretched on an armboard. The area of the right arm was prepped and draped in usual sterile fashion. Timeout was performed in normal fashion. Utilizing ultrasound the basilic vein was visualized and shown to be compressible without any visible thrombus. Under ultrasound guidance the basilic vein was then cannulated with a micropuncture needle and wire was placed under direct visualization of fluoroscopy. Introducer sheath was then placed. The catheter was measured and cut to the appropriate length which was 35 cm. The catheter was then guided through the breakaway sheath and the sheath was removed with good positioning was visualized under fluoroscopy. The catheter was pulled and flushed easily. It was then secured in place in normal fashion. Patient tolerated the procedure well was sent back to his room for recovery.
--- NOTE | 2023-12-19 12:33 | P.PN ---
Subjective Progress Note Date: 12/19/23 Principal diagnosis: Diverticulitis Patient felt well after nasogastric tube was placed for decompression on Tuesday. Still having mild abdominal discomfort. Mild bloating. No ostomy function of significance per nursing staff. She is afebrile. White blood cell count mildly elevated although improved from Tuesday. Objective - Vital Signs Vital signs: Vital Signs Temp 98.5 F 12/19/23 07:44 Pulse 78 12/19/23 08:46 Resp 18 12/19/23 07:44 BP 161/71 12/19/23 07:44 Pulse Ox 94 L 12/19/23 07:44 FiO2 30 12/09/23 10:00 Intake & Output 12/18/23 12/19/23 12/19/23 18:59 06:59 18:59 Output Total 300 100 250 Balance -300 -100 -250 Output: Gastric Drainage 300 100 250 Other: Voiding Method Bedpan # Voids 5 5 1 ABP, PAP, CO, CI - Last Documented Arterial Blood Pressure 119/92 - Exam Abdomen: Soft, mild distention, mild diffuse tenderness, dressing clean and dry - Labs CBC & Chem 7: 12/19/23 05:26 12/19/23 05:26 Labs: Abnormal Lab Results - Last 24 Hours (Table) 12/18/23 12/18/23 12/19/23 Range/Units 16:26 20:32 03:38 WBC (4.50-10.00) X 10*3/uL RBC (4.10-5.20) X 10*6/uL Hgb (12.0-15.0) g/dL Hct (37.2-46.3) % Immature Gran # (0.00-0.04) X 10*3/uL Neutrophils # (1.80-7.70) X 10*3/uL Lymphocytes # (0.90-5.00) X 10*3/uL Eosinophils # (0.04-0.35) X 10*3/uL Sodium (137-145) mmol/L Potassium (3.5-5.1) mmol/L Glucose (74-99) mg/dL POC Glucose (mg/dL) 119 H 123 H 111 H (70-110) mg/dL Calcium (8.4-10.2) mg/dL Magnesium (1.6-2.3) mg/dL AST (14-36) U/L Troponin I (0.000-0.034) ng/mL C-Reactive Protein (<1.0) mg/dL Total Protein (6.3-8.2) g/dL Albumin (3.5-5.0) g/dL 12/19/23 12/19/23 12/19/23 Range/Units 05:26 05:26 05:26 WBC 11.54 H (4.50-10.00) X 10*3/uL RBC 3.55 L (4.10-5.20) X 10*6/uL Hgb 10.9 L (12.0-15.0) g/dL Hct 33.6 L (37.2-46.3) % Immature Gran # 0.13 H (0.00-0.04) X 10*3/uL Neutrophils # 9.53 H (1.80-7.70) X 10*3/uL Lymphocytes # 0.83 L (0.90-5.00) X 10*3/uL Eosinophils # 0 L (0.04-0.35) X 10*3/uL Sodium 133 L (137-145) mmol/L Potassium 3.1 L (3.5-5.1) mmol/L Glucose 102 H (74-99) mg/dL POC Glucose (mg/dL) (70-110) mg/dL Calcium 7.8 L (8.4-10.2) mg/dL Magnesium 1.4 L (1.6-2.3) mg/dL AST 40 H (14-36) U/L Troponin I (0.000-0.034) ng/mL C-Reactive Protein 3.0 H (<1.0) mg/dL Total Protein 4.5 L (6.3-8.2) g/dL Albumin 2.1 L (3.5-5.0) g/dL 12/19/23 Range/Units 09:15 WBC (4.50-10.00) X 10*3/uL RBC (4.10-5.20) X 10*6/uL Hgb (12.0-15.0) g/dL Hct (37.2-46.3) % Immature Gran # (0.00-0.04) X 10*3/uL Neutrophils # (1.80-7.70) X 10*3/uL Lymphocytes # (0.90-5.00) X 10*3/uL Eosinophils # (0.04-0.35) X 10*3/uL Sodium (137-145) mmol/L Potassium (3.5-5.1) mmol/L Glucose (74-99) mg/dL POC Glucose (mg/dL) (70-110) mg/dL Calcium (8.4-10.2) mg/dL Magnesium (1.6-2.3) mg/dL AST (14-36) U/L Troponin I 0.167 H* (0.000-0.034) ng/mL C-Reactive Protein (<1.0) mg/dL Total Protein (6.3-8.2) g/dL Albumin (3.5-5.0) g/dL Assessment and Plan (1) Perforated viscus Narrative/Plan: 78-year-old female with small bowel obstruction versus ileus after recent Lucio's procedure for perforated sigmoid diverticulitis. Clinical scenario discussed with patient in detail. Favor conservative measures at present. If s ymptoms persist may require relaparotomy for bowel obstruction. Continue gastric decompression. Plan PICC line and starting TPN at this time. Patient is agreeable and wants to avoid surgery if possible. Current Visit: Yes Status: Acute Code(s): R19.8 - OTH SYMPTOMS AND SIGNS INVOLVING THE DGSTV SYS AND ABDOMEN SNOMED Code(s): 358225487
--- NOTE | 2023-12-19 13:47 | P.CRDCN ---
History of Present Illness History of present illness: HISTORY OF PRESENT ILLNESS: This is a 78-year-old female with a past medical history significant for arthritis, hypertension, hyperlipidemia, nicotine dependence, carotid stenosis, and valvular heart disease. Patient follows in the office with Dr. Mabry. We have been asked to see the patient in consultation for ST changes on telemetry. Patient examined at the bedside. Patient is status post exploratory laparotomy, sigmoid colectomy, and end colostomy secondary to perforated sigmoid diverticulitis on December 08, 2023. The patient was doing well postoperatively. However, she developed abdominal distention, nausea, and decreased stool output from her ostomy. Patient had an NG tube reinserted and states she felt significantly better afterwards. At the time of examination, she has had no significant ostomy function. She denies having any chest pain or pressure. She denies any shortness of breath. All signs are stable. DIAGNOSTICS: - EKG reveals sinus mechanism with T wave inversions in V3V6 - Laboratory data: Troponin 0.167. Patient's troponins have been chronically elevated back to 2019 with troponin of 0.038. 0.123. 0.089. - Current home cardiac medications include Lipitor 20 mg daily, metoprolol tartrate 25 mg twice a day. - Most recent echocardiogram obtained in December 2022 revealed ejection fraction 60 to 65%, grade 2 diastolic function, mild LVH with LIO, moderate AR, mild to moderate MR, RVSP 28 mmHg REVIEW OF SYSTEMS: At the time of my exam: CONSTITUTIONAL: Denies fever or chills. HEENT: Denies blurred vision, vision changes, or eye pain. Denies hemoptysis CARDIOVASCULAR: Denies chest pain. Denies orthopnea. Denies PND. Denies palpitations RESPIRATORY: Denies shortness of breath. GASTROINTESTINAL: Denies abdominal pain. Denies nausea or vomiting. HEMATOLOGIC: Denies bleeding disorders. GENITOURINARY: Denies any blood in urine. SKIN: Denies pruitis. Denies rash. PHYSICAL EXAM: VITAL SIGNS: Reviewed. GENERAL: Well-developed in no acute distress. HEENT: Head is normocephalic. Pupils are equal, round. Sclerae anicteric. Mucous membranes of the mouth are moist. Neck supple. No JVD or thyromegaly LUNGS: Respirations even and unlabored. Lungs essentially clear to auscultation bilaterally. HEART: Regular rate and rhythm. S1 and S2 heard. Systolic murmur noted. ABDOMEN: Soft. Mildly distended. Ostomy present. EXTREMITIES: Normal range of motion. No clubbing or cyanosis. Peripheral pulses intact. No lower extremity edema NEUROLOGIC: Awake and alert. Oriented x 3. ASSESSMENT: Perforated sigmoid diverticulitis, status post exploratory laparotomy, sigmoid colectomy, and end colostomy Postoperative small bowel obstruction versus ileus Elevated troponin, suspect type II IL secondary to above History of hypertension History of hyperlipidemia Carotid stenosis History of arthritis Nicotine dependence Valvular heart disease PLAN: Obtain 2D echo to assess cardiac structure and function Continue home cardiac medications Trend troponins No plans to begin IV heparin secondary to recent surgery. Suspect troponin vamshi vation is due to type II IL Further recommendations pending patient course Nurse practitioner note has been reviewed by physician. Signing provider agrees with the documented findings, assessment, and plan of care documented by LAC[employer] TIER as a scribe. Past Medical History Past Medical History: COPD, Hypertension, Rheumatoid Arthritis (RA) Additional Past Medical History / Comment(s): bleeding ulcer History of Any Multi-Drug Resistant Organisms: None Reported Past Surgical History: Tubal Ligation Additional Past Surgical History / Comment(s): Eye surgery (cataracts removed). Past Anesthesia/Blood Transfusion Reactions: No Reported Reaction Past Psychological History: No Psychological Hx Reported Smoking Status: Current every day smoker Past Alcohol Use History: Rare Past Drug Use History: None Reported - Past Family History Mother Family Medical History: No Reported History Father Family Medical History: Cancer Medications and Allergies Home Medications Medication Instructions Recorded Confirmed Type oxyCODONE-APAP 7.5-325MG [Percocet 1 tab PO Q6H PRN 05/27/19 12/08/23 History 7.5-325 mg] Pantoprazole [Protonix] 40 mg PO AC-BID #60 tablet. 05/30/19 12/08/23 Rx Atorvastatin [Lipitor] 20 mg PO DAILY 05/08/20 12/08/23 History Metoprolol Tartrate [Lopressor] 25 mg PO BID #60 tab 05/14/20 12/08/23 Rx Albuterol Sulfate [Albuterol 2 puff PO RT-Q4H PRN 12/08/23 12/08/23 History Sulfate Hfa] Baclofen 10 mg PO HS 12/08/23 12/08/23 History Budesonide/Glycopyr/Formoterol 2 puff INHALATION RT-BID 12/08/23 12/08/23 History [Breztri Aerosphere Inhaler] Hydroxychloroquine Sulfate 200 mg PO BID 12/08/23 12/08/23 History [Plaquenil] Montelukast [Singulair] 10 mg PO DAILY 12/08/23 12/08/23 History Promethazine/Dextromethorphan 5 ml PO Q4H PRN 12/08/23 12/08/23 History [Promethazine-Dm Syrup] cefUROXime axetiL [Ceftin] 500 mg PO BID 12/08/23 12/08/23 History Allergies Allergy/AdvReac Type Severity Reaction Status Date / Time alendronate sodium Allergy Unknown Verified 12/08/23 07:55 [From Fosamax] erythromycin base Allergy Unknown Verified 12/08/23 07:55 gatifloxacin [From Tequin] Allergy Unknown Verified 12/08/23 07:55 Penicillins Allergy Unknown Verified 12/08/23 07:55 tetracycline Allergy Unknown Verified 12/08/23 07:55 Physical Exam Vitals: Vital Signs Temp Pulse Pulse Pulse Resp BP BP 12/19/23 08:46 78 12/19/23 08:35 78 12/19/23 08:26 78 12/19/23 07:44 98.5 F 77 18 161/71 12/19/23 02:16 98.3 F 71 12 160/81 12/18/23 20:31 80 12/18/23 20:18 80 12/18/23 20:00 98.7 F 76 13 142/69 12/18/23 14:00 97.7 F 78 18 138/76 Pulse Ox 12/19/23 08:46 12/19/23 08:35 12/19/23 08:26 12/19/23 07:44 94 L 12/19/23 02:16 96 12/18/23 20:31 12/18/23 20:18 12/18/23 20:00 94 L 12/18/23 14:00 94 L Intake and Output 12/18/23 12/19/23 12/19/23 22:59 06:59 14:59 Output Total 100 250 Balance -100 -250 Output: Gastric Drainage 100 250 Other: Voiding Method Bedpan # Voids 5 1 Results 12/19/23 05:26 12/19/23 05:26 Cardiac Enzymes 12/19/23 12/19/23 Range/Units 05:26 09:15 AST 40 H (14-36) U/L Troponin I 0.167 H* (0.000-0.034) ng/mL Coagulation 12/19/23 Range/Units 05:26 PT 12.0 (10.0-12.5) sec CBC 12/19/23 Range/Units 05:26 WBC 11.54 H (4.50-10.00) X 10*3/uL RBC 3.55 L (4.10-5.20) X 10*6/uL Hgb 10.9 L (12.0-15.0) g/dL Hct 33.6 L (37.2-46.3) % Plt Count 386 (140-440) X 10*3/uL Comprehensive Metabolic Panel 12/19/23 Range/Units 05:26 Sodium 133 L (137-145) mmol/L Potassium 3.1 L (3.5-5.1) mmol/L Chloride 103 (98-107) mmol/L Carbon Dioxide 30 (22-30) mmol/L BUN 13 (7-17) mg/dL Creatinine 0.59 (0.52-1.04) mg/dL Glucose 102 H (74-99) mg/dL Calcium 7.8 L (8.4-10.2) mg/dL AST 40 H (14-36) U/L ALT 26 (4-34) U/L Alkaline Phosphatase 62 (38-126) U/L Total Protein 4.5 L (6.3-8.2) g/dL Albumin 2.1 L (3.5-5.0) g/dL Current Medications Generic Name Dose Route Start Last Admin Trade Name Freq PRN Reason Stop Dose Admin Albuterol Sulfate 2.5 mg 12/09/23 11:07 Albuterol Nebulized 2.5 Mg/3 Ml INHALATION RT-Q4H PRN Shortness Of Breath Albuterol/Ipratropium 3 ml 12/08/23 10:38 Ipratropium-Albuterol 3 Ml Neb INHALATION RT-Q2H PRN Shortness Of Breath Or Wheezing Albuterol/Ipratropium 3 ml 12/09/23 12:00 12/19/23 11:42 Ipratropium-Albuterol 3 Ml Neb INHALATION Not Given RT-QID ANN Atorvastatin Calcium 20 mg 12/09/23 11:15 12/19/23 08:23 Atorvastatin 20 Mg Tab PO Not Given DAILY ANN Baclofen 10 mg 12/15/23 21:00 12/18/23 21:03 Baclofen 10 Mg Tab PO 10 mg HS ANN Administration Benzocaine 1 spray 12/09/23 20:05 12/10/23 00:20 Benzocaine Grabill 1 Can MUCOUS MEM 1 spray QID PRN Administration Mouth Irritation Protocol Benzocaine/Menthol 1 each 12/09/23 20:09 12/16/23 18:17 Benzocaine/Menthol Lozeng 1 Each Lozenge MUCOUS MEM 1 each Q4HR PRN Administration Sore Throat Budesonide 1 mg 12/08/23 20:00 12/19/23 08:26 Budesonide 1 Mg/2 Ml Nebu INHALATION 1 mg RT-BID ANN Administration Clonidine HCl 1 patch 12/12/23 16:00 12/12/23 17:17 Clonidine 0.2 Mg/24hr Patch TRANSDERM 1 patch Q7D ANN Administration Dextrose/Water 25 ml 12/09/23 00:31 12/17/23 19:34 Dextrose 50% Syringe 50 Ml IVP 25 ml PER PROTOCOL PRN Administration Hypoglycemia Protocol Dextrose/Water 50 ml 12/09/23 00:31 Dextrose 50% Syringe 50 Ml IVP PER PROTOCOL PRN Hypoglycemia Protocol Formoterol Fumarate 20 mcg 12/08/23 20:00 12/19/23 08:26 Formoterol Fumarate 20 Mcg/2 Ml Nebu INHALATION 20 mcg RT-BID ANN Administration Heparin Sodium (Porcine) 5,000 unit 12/08/23 16:00 12/19/23 09:57 Heparin Sodium,Porcine 5,000 Unit/Ml 1 Ml Vial SQ Not Given Q8HR ANN Hydroxychloroquine Sulfate 200 mg 12/09/23 11:15 12/19/23 08:23 Hydroxychloroquine Sulfate 200 Mg Tab PO 200 mg BID ANN Administration Cefepime HCl 2 gm/ Sodium 100 mls @ 25 mls/hr 12/15/23 21:00 12/19/23 08:22 Chloride IVPB 25 mls/hr Q12HR ANN Administration Protocol Metronidazole 500 mg/ IV 100 mls @ 100 mls/hr 12/16/23 16:00 12/19/23 08:22 Solution IVPB 100 mls/hr Q8HR ANN Administration Protocol Acetaminophen 550 mg/ IV 55 mls @ 220 mls/hr 12/16/23 18:16 12/17/23 20:42 Solution IVPB 12/22/23 23:00 220 mls/hr Q8HR PRN Administration Pain Dextrose/Sodium Chloride 1,000 mls @ 100 mls/hr 12/17/23 19:15 12/19/23 03:32 Dextrose 5%-Ns Iv Soln IV 100 mls/hr .Q10H ANN Administration Potassium Chloride 10 meq/ IV 100 mls @ 100 mls/hr 12/19/23 09:00 12/19/23 11:02 Solution IVPB 12/19/23 12:59 100 mls/hr Q1HR ANN Administration Protocol Metoprolol Tartrate 5 mg 12/08/23 10:52 12/16/23 21:54 Metoprolol Tartrate 5 Mg/5 Ml Vial IVP 5 mg Q6HR PRN Administration Blood Pressure - High Metoprolol Tartrate 50 mg 12/14/23 21:00 12/19/23 08:22 Metoprolol Tartrate 50 Mg Tab PO 50 mg BID ANN Administration Miscellaneous Information 1 each 12/08/23 12:06 Magnesium Replacement Protocol 1 Each Misc MISCELLANE DAILY PRN Per Protocol Protocol Miscellaneous Information 1 each 12/09/23 06:23 Potassium Replacement Protocol 1 Each Misc MISCELLANE DAILY PRN Per Protocol Protocol Miscellaneous Information 1 each 12/19/23 08:20 Potassium Replacement Protocol 1 Each Misc MISCELLANE DAILY PRN Per Protocol Protocol Montelukast Sodium 10 mg 12/09/23 11:15 12/18/23 09:11 Montelukast 10 Mg Tab PO 10 mg DAILY ANN Administration Morphine Sulfate 4 mg 12/17/23 03:02 12/19/23 11:24 Morphine Sulfate 4 Mg/Ml Syringe IVP 4 mg Q3HR PRN Administration Pain Naloxone HCl 0.2 mg 12/08/23 04:19 Naloxone 0.4 Mg/Ml 1 Ml Vial IV Q2M PRN Opioid Reversal Nicotine 1 patch 12/09/23 14:45 12/19/23 08:23 Nicotine 21mg/24hr Patch TRANSDERM 1 patch DAILY ANN Administration Nicotine Polacrilex 2 mg 12/10/23 11:32 Nicotine Gum (Polacrilex) 2 Mg Gum BUCCAL Q4HR PRN Nicotine Cravings Oxycodone/Acetaminophen 1 each 12/14/23 14:01 12/16/23 16:11 Oxycodone-Apap 7.5-325mg 1 Each Tab PO 1 each Q6H PRN Administration Pain Pantoprazole Sodium 40 mg 12/13/23 17:30 12/19/23 07:49 Pantoprazole 40 Mg Tablet PO Not Given AC-BID ANN Temazepam 15 mg 12/10/23 11:31 12/18/23 21:02 Temazepam 15 Mg Cap PO 15 mg HS PRN Administration Insomnia Intake and Output 12/18/23 12/19/23 12/19/23 22:59 06:59 14:59 Output Total 100 250 Balance -100 -250 Output: Gastric Drainage 100 250 Other: Voiding Method Bedpan # Voids 5 1 12/19/23 05:26 12/19/23 05:26
--- NOTE | 2023-12-19 14:21 | IR ---
EXAMINATION TYPE: IR cvc insert >=5 years Intraoperative/procedural fluoroscopic services were provid ed. CLINICAL INDICATION:Female, 78 years old with history of TPN IVF, 35cm, left basilic vein,0.7min fluo ro, [id number]; , [facility] Total fluoroscopy time is 0.8 min. DAP: 13.32 uGym2 Please see the operative/procedural note for further details.
--- NOTE | 2023-12-19 14:46 | P.PN ---
Subjective Progress Note Date: 12/19/23 The patient is seen today December 19, 2023 and follow-up on the regular medical floor. She is currently sitting up in bed. Awake and alert in no acute distress. She is maintaining O2 saturations in the 90s on room air. Nasogastric tube remains in place. Still having some mild abdominal discomfort. Ostomy with minimal output. Mild bloating. CT scan of the abdomen from yesterday revealed redemonstrated and overall stable appearance of findings concerning for small bowel obstruction with dilated small bowel loops and suspected transition point within the lower abdomen. No contrast is visualized extending into the colon. No plans for surgery at this point. Continuing conservative management per surgical services. Plan is for PICC line placement and to be transitioned to TPN. White count 11.5. Hemoglobin 10.9. Platelets 383. Sodium 133. Potassium 3.1. Bicarb 30. BUN 13. Creatinine 0.59. Glucose 102. Troponin 0.167, 0.174. Cardiology has been consulted. Objective - Vital Signs Vital signs: Vital Signs Temp 98.3 F 12/19/23 13:35 Pulse 77 12/19/23 13:35 Resp 18 12/19/23 13:35 BP 179/52 12/19/23 13:35 Pulse Ox 95 12/19/23 13:35 FiO2 30 12/09/23 10:00 Intake & Output 12/18/23 12/19/23 12/19/23 18:59 06:59 18:59 Output Total 300 100 250 Balance -300 -100 -250 Output: Gastric Drainage 300 100 250 Other: Voiding Method Bedpan # Voids 5 5 1 ABP, PAP, CO, CI - Last Documented Arterial Blood Pressure 119/92 - Exam GENERAL EXAM: Awake, sitting up in bed, 78-year-old female, on room air, in no apparent distress. HEAD: Normocephalic. EYES: Sluggish reaction of pupils, equal size. NOSE: Clear with pink turbinates. Nasogastric tube secured in place. THROAT: Nasogastric tube secured in place. No erythema or exudates. NECK: No masses, no JVD. CHEST: No chest wall deformity. LUNGS: Equal air entry with faint crackles in the posterior bases. CVS: S1 and S2 normal with no audible murmur, regular rhythm. ABDOMEN: Abdominal dressing dry and intact. Left abdominal ostomy present. SPINE: No scoliosis or deformity SKIN: No rashes CENTRAL NERVOUS SYSTEM: Sedated, tone is normal in all 4 extremities. EXTREMITIES: There is no peripheral edema. No clubbing, no cyanosis. Peripheral pulses are intact. - Labs CBC & Chem 7: 12/19/23 05:26 12/19/23 05:26 Labs: Abnormal Lab Results - Last 24 Hours (Table) 12/18/23 12/18/23 12/19/23 Range/Units 16:26 20:32 03:38 WBC (4.50-10.00) X 10*3/uL RBC (4.10-5.20) X 10*6/uL Hgb (12.0-15.0) g/dL Hct (37.2-46.3) % Immature Gran # (0.00-0.04) X 10*3/uL Neutrophils # (1.80-7.70) X 10*3/uL Lymphocytes # (0.90-5.00) X 10*3/uL Eosinophils # (0.04-0.35) X 10*3/uL Sodium (137-145) mmol/L Potassium (3.5-5.1) mmol/L Glucose (74-99) mg/dL POC Glucose (mg/dL) 119 H 123 H 111 H (70-110) mg/dL Calcium (8.4-10.2) mg/dL Magnesium (1.6-2.3) mg/dL AST (14-36) U/L Troponin I (0.000-0.034) ng/mL C-Reactive Protein (<1.0) mg/dL Total Protein (6.3-8.2) g/dL Albumin (3.5-5.0) g/dL 12/19/23 12/19/23 12/19/23 Range/Units 05:26 05:26 05:26 WBC 11.54 H (4.50-10.00) X 10*3/uL RBC 3.55 L (4.10-5.20) X 10*6/uL Hgb 10.9 L (12.0-15.0) g/dL Hct 33.6 L (37.2-46.3) % Immature Gran # 0.13 H (0.00-0.04) X 10*3/uL Neutrophils # 9.53 H (1.80-7.70) X 10*3/uL Lymphocytes # 0.83 L (0.90-5.00) X 10*3/uL Eosinophils # 0 L (0.04-0.35) X 10*3/uL Sodium 133 L (137-145) mmol/L Potassium 3.1 L (3.5-5.1) mmol/L Glucose 102 H (74-99) mg/dL POC Glucose (mg/dL) (70-110) mg/dL Calcium 7.8 L (8.4-10.2) mg/dL Magnesium 1.4 L (1.6-2.3) mg/dL AST 40 H (14-36) U/L Troponin I (0.000-0.034) ng/mL C-Reactive Protein 3.0 H (<1.0) mg/dL Total Protein 4.5 L (6.3-8.2) g/dL Albumin 2.1 L (3.5-5.0) g/dL 12/19/23 12/19/23 Range/Units 09:15 12:41 WBC (4.50-10.00) X 10*3/uL RBC (4.10-5.20) X 10*6/uL Hgb (12.0-15.0) g/dL Hct (37.2-46.3) % Immature Gran # (0.00-0.04) X 10*3/uL Neutrophils # (1.80-7.70) X 10*3/uL Lymphocytes # (0.90-5.00) X 10*3/uL Eosinophils # (0.04-0.35) X 10*3/uL Sodium (137-145) mmol/L Potassium (3.5-5.1) mmol/L Glucose (74-99) mg/dL POC Glucose (mg/dL) (70-110) mg/dL Calcium (8.4-10.2) mg/dL Magnesium (1.6-2.3) mg/dL AST (14-36) U/L Troponin I 0.167 H* 0.174 H* (0.000-0.034) ng/mL C-Reactive Protein (<1.0) mg/dL Total Protein (6.3-8.2) g/dL Albumin (3.5-5.0) g/dL Assessment and Plan Assessment: Severe acute abdominal pain secondary to perforated sigmoid diverticulitis. Status post exploratory laparotomy, sigmoid colectomy, end colostomy on December 08, 2023. Most recent CT scan of the abdomen reveals small bowel obstruction. Plan is for conservative management if possible. Nasogastric tube remains in place. To be initiated on TPN once PICC line placed Acute hypoxemic respiratory failure secondary to above requiring prolonged ventilation postoperatively, recovered and on room air Severe protein calorie malnutrition with a BMI of less than 20 kg/m History of gastric ulcers and esophagitis History of rheumatoid arthritis History of chronic obstructive pulmonary disease History of chronic tobacco dependence History of hypertension History of hyperlipidemia History of gastroesophageal reflux disease Plan: The patient was seen and evaluated CT scan of the abdomen, labs and medications reviewed Plan is for conservative management if possible Remains stable and on room air Nasal gastric tube remains in place Plan is for PICC line and TPN to be initiated Continue Flagyl and cefepime Increase her activity as tolerated We will continue to follow I have personally seen and examined the patient, performed the documentation and the assessment and plan as written. Number of minutes spent on the visit: 10.
[2023-12-19] MEDS: FAT EMULSION 20% 250 ML IV SCH (15:26)
[2023-12-19] MEDS: MVI, ADULT NO.4 WITH VIT K 10 ML, TRACE (CONC-1ML/DOSE) 1 ML in AMINO ACID 5%-D20W+LYTE... IV SCH (15:26)
[2023-12-19 17:08] LABS: Glucose,Whole Blood 153 mg/dL (70-110)
[2023-12-19] MEDS: MAGNESIUM SULFATE-D5W PMX 1 GM in DEXTROSE/WATER 1 100ML.BAG IVPB SCH (19:15)
--- NOTE | 2023-12-19 19:17 | P.PN ---
Progress Note - Text Progress Note Date: 12/19/23 - Chief Complaint Abdominal pain - History of Present Illness This is a pleasant 78-year-old patient, chronic stable medical conditions include COPD, hypertension, rheumatoid arthritis. Patient is active smoker. Patient with 3 days been having increasing abdominal pain. Presented to the ER. CT scan showed free air. Patient was taken to the OR yesterday by Dr. Lentz. Underwent exploratory laparotomy. Found to have a perforated sigmoid d iverticulitis. Sigmoid colectomy with end colostomy was done. Today in the ICU: Extubated earlier today. 2 L nasal cannula. Has NG tube to suction. No output in the colostomy bag. Son at the bedside. Pain at the surgical site. December 10: Patient moved out of the ICU. NG tube to intermittent suction. Did not sleep well yesterday. States when she tries to close her eyes she starts hallucinating. Given one-time dose of Haldol. Having significant pain at the operative site. Pain medications per surgical team. No output through colostomy bag. Discussed with nurse. Sons at the bedside. Also added Nicorette gum as needed. Hypoglycemia: Change IV fluids to D5.45. Patient on IV cefepime and IV Flagyl. December 11: NG tube in place. Plan for it to be discontinued this afternoon. Very little output from the colostomy bag. Did sleep her last night.'s some hallucinations. Discussed with the patient's son. Try to cut back on IV narcotics balance between pain control and side effects. December 12: NG tube was discontinued yesterday. Remains NPO per surgery. No output from the colostomy bag. Did not sleep well last night. Chewing gum ordered. Remains on IV cefepime. IV Flagyl. For blood pressure start Catapres patch 0.2. December 13: Patient be started on clear liquids by surgery. Some stool from the colostomy bag. Pain better. Pain switched over to oral pain medications. Abdominal wound cultures growing E. coli and alphahemolytic Streptococcus. Remains on IV cefepime and IV Flagyl. Abdominal pain better. December 14: Patient having dark stool output through the colostomy bag. Did sit up in a chair. On full liquid diet. Patient requested to have a home dose of Percocet as opposed to [place]. Ordered. Blood pressure running high. Increase Lopressor to 50 mg twice daily. December 15: Patient advance to low fiber diet today. Eating some. Abdominal pain much better. Colostomy bag working. 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 December 16: Patient complaining of increasing abdominal pain. More distention. Some stool from the colostomy bag. Patient made NPO. On antibiotics. CT scan abdomen ordered. December 17: Continues to have abdominal pain. NG tube to suction. Some stool in the colostomy bag. CT scan from yesterday showed partial versus complete bowel obstruction. December 18: Abdominal pain present. NG tube to suction. Some stool in the colostomy bag. On IV cefepime and IV Flagyl. Tired. December 19: Improvement in abdominal pain. No secondary perforation. Was felt to be partial obstruction. NG tube remains in place. Remains NPO. Patient had some chest pain this afternoon. Troponins were ordered. Cardiology was ordered. Telemetry. Active Medications Albuterol Sulfate (Albuterol Nebulized 2.5 Mg/3 Ml) 2.5 mg INHALATION RT-Q4H PRN PRN Reason: Shortness Of Breath Albuterol/Ipratropium (Ipratropium-Albuterol 3 Ml Neb) 3 ml INHALATION RT-Q2H PRN PRN Reason: Shortness Of Breath Or Wheezing Albuterol/Ipratropium (Ipratropium-Albuterol 3 Ml Neb) 3 ml INHALATION RT-QID [facility] Last Admin: 12/19/23 15:29 Dose: 3 ml Atorvastatin Calcium (Atorvastatin 20 Mg Tab) 20 mg PO DAILY [facility] Last Admin: 12/19/23 08:23 Dose: Not Given Baclofen (Baclofen 10 Mg Tab) 10 mg PO HS [facility] Last Admin: 12/18/23 21:03 Dose: 10 mg Benzocaine (Benzocaine [place] 1 Can) 1 spray MUCOUS MEM QID PRN; Protocol PRN Reason: Mouth Irritation Last Admin: 12/10/23 00:20 Dose: 1 spray Benzocaine/Menthol (Benzocaine/Menthol Lozeng 1 Each Lozenge) 1 each MUCOUS MEM Q4HR PRN PRN Reason: Sore Throat Last Admin: 12/16/23 18:17 Dose: 1 each Budesonide (Budesonide 1 Mg/2 Ml Nebu) 1 mg INHALATION RT-BID [facility] Last Admin: 12/19/23 08:26 Dose: 1 mg Clonidine HCl (Clonidine 0.2 Mg/24hr Patch) 1 patch TRANSDERM Q7D [facility] Last Admin: 12/19/23 17:38 Dose: 1 patch Dextrose/Water (Dextrose 50% Syringe 50 Ml) 25 ml IVP PER PROTOCOL PRN; Protocol PRN Reason: Hypoglycemia Last Admin: 12/17/23 19:34 Dose: 25 ml Dextrose/Water (Dextrose 50% Syringe 50 Ml) 50 ml IVP PER PROTOCOL PRN; Protocol PRN Reason: Hypoglycemia Formoterol Fumarate (Formoterol Fumarate 20 Mcg/2 Ml Nebu) 20 mcg INHALATION RT-BID [facility] Last Admin: 12/19/23 08:26 Dose: 20 mcg Heparin Sodium (Porcine) (Heparin Sodium,Porcine 5,000 Unit/Ml 1 Ml Vial) 5,000 unit SQ Q8HR [facility] Last Admin: 12/19/23 17:41 Dose: 5,000 unit Hydroxychloroquine Sulfate (Hydroxychloroquine Sulfate 200 Mg Tab) 200 mg PO BID [facility] Last Admin: 12/19/23 08:23 Dose: 200 mg Cefepime HCl 2 gm/ Sodium (Chloride) 100 mls @ 25 mls/hr IVPB Q12HR [facility]; Protocol Last Admin: 12/19/23 08:22 Dose: 25 mls/hr Metronidazole 500 mg/ IV (Solution) 100 mls @ 100 mls/hr IVPB Q8HR [facility]; Protocol Last Admin: 12/19/23 17:28 Dose: 100 mls/hr Acetaminophen 550 mg/ IV (Solution) 55 mls @ 220 mls/hr IVPB Q8HR PRN PRN Reason: Pain Stop: 12/22/23 23:00 Last Admin: 12/17/23 20:42 Dose: 220 mls/hr Dextrose/Sodium Chloride (Dextrose 5%-Ns Iv Soln) 1,000 mls @ 100 mls/hr IV .Q10H [facility] Last Admin: 12/19/23 17:20 Dose: Not Given Parenteral Vitamin Supplement 10 ml/ Zinc/Copper/Manganese/Selenium 1 ml/ Amino Ac/Electrol/Dextrose/Calcium 1,011 mls @ 30 mls/hr IV .Q24H [facility] Last Admin: 12/19/23 15:26 Dose: 30 mls/hr Fat Emulsion Intravenous (Lipids 20%) 250 mls @ 20.833 mls/hr IV MoTh@1400 ANN Last Admin: 12/19/23 15:26 Dose: 20.833 mls/hr Metoprolol Tartrate (Metoprolol Tartrate 5 Mg/5 Ml Vial) 5 mg IVP Q6HR PRN PRN Reason: Blood Pressure - High Last Admin: 12/16/23 21:54 Dose: 5 mg Metoprolol Tartrate (Metoprolol Tartrate 50 Mg Tab) 50 mg PO BID [facility] Last Admin: 12/19/23 08:22 Dose: 50 mg Miscellaneous Information (Magnesium Replacement Protocol 1 Each Misc) 1 each MISCELLANE DAILY PRN; Protocol PRN Reason: Per Protocol Miscellaneous Information (Potassium Replacement Protocol 1 Each Misc) 1 each MISCELLANE DAILY PRN; Protocol PRN Reason: Per Protocol Miscellaneous Information (Potassium Replacement Protocol 1 Each Misc) 1 each MISCELLANE DAILY PRN; Protocol PRN Reason: Per Protocol Montelukast Sodium (Montelukast 10 Mg Tab) 10 mg PO DAILY [facility] Last Admin: 12/19/23 14:25 Dose: Not Given Morphine Sulfate (Morphine Sulfate 4 Mg/Ml Syringe) 4 mg IVP Q3HR PRN PRN Reason: Pain Last Admin: 12/19/23 17:27 Dose: 4 mg Naloxone HCl (Naloxone 0.4 Mg/Ml 1 Ml Vial) 0.2 mg IV Q2M PRN PRN Reason: Opioid Reversal Nicotine (Nicotine 21mg/24hr Patch) 1 patch TRANSDERM DAILY [facility] Last Admin: 12/19/23 08:23 Dose: 1 patch Nicotine Polacrilex (Nicotine Gum (Polacrilex) 2 Mg Gum) 2 mg BUCCAL Q4HR PRN PRN Reason: Nicotine Cravings Oxycodone/Acetaminophen (Oxycodone-Apap 7.5-325mg 1 Each Tab) 1 each PO Q6H PRN PRN Reason: Pain Last Admin: 12/16/23 16:11 Dose: 1 each Pantoprazole Sodium (Pantoprazole 40 Mg Tablet) 40 mg PO AC-BID [facility] Last Admin: 12/19/23 17:41 Dose: Not Given Temazepam (Temazepam 15 Mg Cap) 15 mg PO HS PRN PRN Reason: Insomnia Last Admin: 12/18/23 21:02 Dose: 15 mg Social history: Patient been smoking for many years. Was up to 4 packs a day. Now down to a pack a day. Works at [employer]. Lives with her son. Physical examination: VITAL SIGNS: 98.3, 77, 18, 179 x 52, 95% room air GENERAL: Laying in bed tired EYES: Pupils equal. Conjunctiva normal HEENT: External appearance of nose and ears normal, oral cavity grossly normal. Diminished hearing in the right ear. NG tube to suction NECK: JVD not raised; masses not palpable. HEART: First and second heart sounds are normal; no edema. LUNGS:[ Respiratory rate increased, diminished breath sounds. ABDOMEN: Soft, decreased tenderness, distention , no guarding rigidity, liver spleen not palpable, no masses palpable. Left-sided colostomy bag-some dark stool. PSYCH: [Alert and oriented x3; mood and affect anxious. MUSCULOSKELETAL:No Clubbing/cyanosis;muscles-grossly intact INVESTIGATIONS, reviewed in the clinical context: December 19: Troponin I 0.167, 0.174, 0.168 December 18: Sodium 131 potassium 3.3 December 17: White count 9.2 hemoglobin 13.2 sodium 129 potassium 3[address] scan abdomen [December 16]: Evidence of possibly complete bowel obstruction possibly December 16: White count 12.7 hemoglobin 11.9 December 15: White count 11 hemoglobin 11.4 potassium 3.6 creatinine 0.55 Abdominal wound culture: E. coli and alphahemolytic Streptococcus. December 09: White count 10.8 hemoglobin 10.9 platelets 254 sodium 135 potassium 3.8 BUN 20 creatinine 0.61 Chest x-ray film personally reviewed by me-hyperinflation Telemetry strip bedside monitor: Personally reviewed by me. Sinus rhythm CT scan abdomen pelvis: Moderate prominence of the stomach. Severe wall thickening of the gastric antrum. Distal colonic diverticulosis. Free air identified anterior to the bladder. Assessment and plan: -Acute sigmoid diverticulitis with perforation. Cultures growing E. coli and alphahemolytic Streptococcus: Worsening abdominal symptoms today.: Slow to respond Patient underwent sigmoid resection and formation of her colostomy on December [address] Lentz. Made NPO. CT scan abdomen [December 16:] Possibly near complete bowel obstruction. NG tube reinserted IV cefepime and IV Flagyl. -Anterior chest wall pain Troponin positive at 0.167 with no rise and fall. Telemetry. Cardiology consulted. -Severe hypokalemia: Replaced Replace potassium -Secondary peritonitis from hollow viscus perforation IV cefepime and IV Flagyl. ID following -COPD and a current smoker DuoNeb 3 times daily. Singulair.. Breztri inhaler -Chronic nicotine dependence, cigarette smoker Nicotine patch -Hyperlipidemia Lipitor 20 mg a day -Severe protein calorie malnutrition. BMI 18.3. Dietitian on the case -Chronic muscle spasm Baclofen as needed -Peptic ulcer disease PPI -Hypoglycemia from poor oral intake: Better -Essential hypertension. Better controlled Lopressor to 50 mg twice daily -Insomnia with hallucinations. Restoril. NG tube to suction. IV fluids. IV cefepime and IV Flagyl. Cardiology consulted. Thank you Dr. Lentz Past Medical History Past Medical History: COPD, Hypertension, Rheumatoid Arthritis (RA) Additional Past Medical History / Comment(s): bleeding ulcer History of Any Multi-Drug Resistant Organisms: None Reported Past Surgical History: Tubal Ligation Additional Past Surgical History / Comment(s): Eye surgery (cataracts removed). Past Anesthesia/Blood Transfusion Reactions: No Reported Reaction Past Psychological History: No Psychological Hx Reported Smoking Status: Current every day smoker Past Alcohol Use History: Rare Past Drug Use History: None Reported
[2023-12-20 00:06] LABS: Glucose,Whole Blood 195 mg/dL (70-110)
[2023-12-20 06:08] LABS: Glucose,Whole Blood 145 mg/dL (70-110)
[2023-12-20 06:40] LABS: ALT 22 U/L (4-34); AST 31 U/L (14-36); African American GFR (CKD) >90 (>60 ml/min/1.73 sqM); Albumin 1.8 g/dL (3.5-5.0); Albumin/Globulin Ratio 0.8; Alkaline Phosphatase 54 U/L (38-126); Anion Gap 2 mmol/L; Blood Urea Nitrogen 12 mg/dL (7-17); Calcium 7.2 mg/dL (8.4-10.2); Carbon Dioxide 27 mmol/L (22-30); Chloride 104 mmol/L (98-107); Globulin 2.3 g/dL; Glucose 125 mg/dL (74-99); Magnesium 2.1 mg/dL (1.6-2.3); Non-African American GFR(CKD) >90 (>60 ml/min/1.73 sqM); Phosphorus 2.1 mg/dL (2.5-4.5); Potassium 2.9 mmol/L (3.5-5.1); Sodium 133 mmol/L (137-145); Total Bilirubin 0.3 mg/dL (0.2-1.3); Total Protein 4.1 g/dL (6.3-8.2)
--- NOTE | 2023-12-20 08:48 | XR ---
EXAMINATION TYPE: XR abdomen 2V DATE OF EXAM: 12/20/2023 6:43 AM CLINICAL INDICATION:Female, 78 years old with history of Follow-up bowel obstruction; COMPARISON: 12/13/2023. TECHNIQUE: Two views of the abdomen were obtained. FINDINGS: Nasogastric tube with tip in appropriate position. Surgical clips project over the upper ab domen The bowel gas pattern is nonspecific without dilated loops of small or large bowel. There is no evidence for organomegaly or pneumoperitoneum. The osseous structures are intact. No abnormal calc ifications are present. Fecal material and gas are demonstrated throughout the colon and rectum. IMPRESSION: 1. Gastric tube in appropriate position. 2. No dilated loops of bowel identified.
--- NOTE | 2023-12-20 10:47 | P.PN ---
Subjective HISTORY OF PRESENT ILLNESS: This is a 78-year-old female with a past medical history significant for arthritis, hypertension, hyperlipidemia, nicotine dependence, carotid stenosis, and valvular heart disease. Patient follows in the office with Dr. Mabry. We have been asked to see the patient in consultation for ST changes on telemetry. Patient examined at the bedside. Patient is status post exploratory laparotomy, sigmoid colectomy, and end colostomy secondary to perforated sigmoid diverticulitis on December 08, 2023. The patient was doing well postoperatively. However, she developed abdominal distention, nausea, and decreased stool output from her ostomy. Patient had an NG tube reinserted and states she felt significantly better afterwards. At the time of examination, she has had no significant ostomy function. She denies having any chest pain or pressure. She denies any shortness of breath. All signs are stable. DIAGNOSTICS: - EKG reveals sinus mechanism with T wave inversions in V3V6 - Laboratory data: Troponin 0.167. Patient's troponins have been chronically elevated back to 2019 with troponin of 0.038. 0.123. 0.089. - Current home cardiac medications include Lipitor 20 mg daily, metoprolol tartrate 25 mg twice a day. - Most recent echocardiogram obtained in December 2022 revealed ejection fraction 60 to 65%, grade 2 diastolic function, mild LVH with LIO, moderate AR, mild to moderate MR, RVSP 28 mmHg 12/20/2023 Patient examined this morning at the bedside. Patient denies any chest pain or pressure. She denies shortness of breath. She remains n.p.o. with an NG tube to low intermittent suction. She denies any significant output from her ostomy. Troponin 0.136. 0.174. 0.168. 2D echo is currently pending. PHYSICAL EXAM: VITAL SIGNS: Reviewed. GENERAL: Well-developed in no acute distress. HEENT: Head is normocephalic. Pupils are equal, round. Sclerae anicteric. Mucous membranes of the mouth are moist. Neck supple. No JVD or thyromegaly LUNGS: Respirations even and unlabored. Lungs essentially clear to auscultation bilaterally. HEART: Regular rate and rhythm. S1 and S2 heard. Systolic murmur noted. ABDOMEN: Soft. Mildly distended. Ostomy present. EXTREMITIES: Normal range of motion. No clubbing or cyanosis. Peripheral pulses intact. No lower extremity edema NEUROLOGIC: Awake and alert. Oriented x 3. ASSESSMENT: Perforated sigmoid diverticulitis, status post exploratory laparotomy, sigmoid colectomy, and end colostomy Postoperative small bowel obstruction versus ileus Elevated troponin, flat, suspect type II [place] secondary to above History of hypertension History of hyperlipidemia Carotid stenosis History of arthritis Nicotine dependence Valvular heart disease PLAN: Continue postoperative management per general surgery 2D echo has been ordered. Await results No plans to begin IV heparin secondary to recent surgery. Suspect troponin elevation is due to type II [place] Further recommendations pending patient course Nurse practitioner note has been reviewed by physician. Signing provider agrees with the documented findings, assessment, and plan of care documented by CHRONIC CARE NURSE as a scribe. Objective - Vital Signs Vital signs: Vital Signs Temp 98.7 F 12/20/23 07:17 Pulse 76 12/20/23 08:52 Resp 18 12/20/23 07:17 BP 153/79 12/20/23 07:17 Pulse Ox 97 12/20/23 07:17 FiO2 30 12/09/23 10:00 Intake & Output 12/19/23 12/20/23 12/20/23 18:59 06:59 18:59 Output Total 250 100 Balance -250 -100 Weight 42.3 kg Output: Gastric Drainage 250 100 Other: Voiding Method Bedpan # Voids 2 2 1 ABP, PAP, CO, CI - Last Documented Arterial Blood Pressure 119/92 - Labs CBC & Chem 7: 12/19/23 05:26 12/20/23 05:34 Labs: Abnormal Lab Results - Last 24 Hours (Table) 12/19/23 12/19/23 12/19/23 Range/Units 09:15 12:41 15:29 Sodium (137-145) mmol/L Potassium (3.5-5.1) mmol/L Creatinine (0.52-1.04) mg/dL Glucose (74-99) mg/dL POC Glucose (mg/dL) (70-110) mg/dL Calcium (8.4-10.2) mg/dL Phosphorus (2.5-4.5) mg/dL Troponin I 0.167 H* 0.174 H* 0.168 H* (0.000-0.034) ng/mL Total Protein (6.3-8.2) g/dL Albumin (3.5-5.0) g/dL 12/19/23 12/20/23 12/20/23 Range/Units 17:06 00:05 05:34 Sodium 133 L (137-145) mmol/L Potassium 2.9 L (3.5-5.1) mmol/L Creatinine 0.47 L (0.52-1.04) mg/dL Glucose 125 H (74-99) mg/dL POC Glucose (mg/dL) 153 H 195 H (70-110) mg/dL Calcium 7.2 L (8.4-10.2) mg/dL Phosphorus 2.1 L (2.5-4.5) mg/dL Troponin I (0.000-0.034) ng/mL Total Protein 4.1 L (6.3-8.2) g/dL Albumin 1.8 L (3.5-5.0) g/dL 12/20/23 Range/Units 06:03 Sodium (137-145) mmol/L Potassium (3.5-5.1) mmol/L Creatinine (0.52-1.04) mg/dL Glucose (74-99) mg/dL POC Glucose (mg/dL) 145 H (70-110) mg/dL Calcium (8.4-10.2) mg/dL Phosphorus (2.5-4.5) mg/dL Troponin I (0.000-0.034) ng/mL Total Protein (6.3-8.2) g/dL Albumin (3.5-5.0) g/dL
[2023-12-20] MEDS: POTASSIUM CHLORIDE 20 MEQ in WATER FOR INJECTION 1 100ML.BAG IVPB SCH (11:05)
[2023-12-20] MEDS: PANTOPRAZOLE SODIUM 40 MG GRANULE PKT PO SCH (11:15)
[2023-12-20] MEDS: CEFEPIME 2 GM in SODIUM CHLORIDE 0.9% 100 ML IVPB SCH (11:17)
[2023-12-20 11:44] LABS: Basophils # (A) 0.09 X 10*3/uL (0.00-0.10); Eosinophils # (A) 0.05 X 10*3/uL (0.04-0.35); Eosinophils % (A) 0.5 %; HCT 29.9 % (37.2-46.3); HGB 9.7 g/dL (12.0-15.0); Lymphocytes # (A) 0.79 X 10*3/uL (0.90-5.00); Lymphocytes % (A) 8.5 %; MCH 31.4 pg (27.0-32.0); MCHC 32.4 g/dL (32.0-37.0); MCV 96.8 FL (80.0-97.0); Mean Platelet Volume 9.8 FL (9.5-12.2); Monocytes # (A) 0.77 X 10*3/uL (0.20-1.00); Monocytes % (A) 8.3 %; NRBC Per 100 WBC 0 X 10*3/uL (0.00-0.01); Neutrophils # (A) 7.47 X 10*3/uL (1.80-7.70); Neutrophils % (A) 80.5 %; Platelet Count 322 X 10*3/uL (140-440); RBC 3.09 X 10*6/uL (4.10-5.20); RDW 13.2 % (11.5-14.5); WBC 9.28 X 10*3/uL (4.50-10.00)
[2023-12-20 12:19] LABS: Glucose,Whole Blood 123 mg/dL (70-110)
--- NOTE | 2023-12-20 12:33 | P.PN ---
Subjective Progress Note Date: 12/20/23 Principal diagnosis: Reason for follow-up is perforated diverticulitis and abscess Patient is a 78-year-old female with a past medical history significant for COPD hypertension rheumatoid arthritis presenting to the ER for evaluation of epigastric abdominal pain, patient did have a CT abdominal pelvis concerning for free subsequently taken to the OR status post laparotomy with evidence of perforated sigmoid diverticulitis status post sigmoid colectomy and end colostomy. On today's evaluation that is 12/20/2023, Patient is afebrile , patient is currently on room air and denies having any shortness of breath, the patient denies any chest pain has been complaining of cough and is bringing up some sputum, the patient still have the NG in denies any vomiting send vomiting of abdominal pain no new symptoms. Patient white count normalized to 9.28, creatinine 0.47 Objective - Vital Signs Vital signs: Vital Signs Temp 98.7 F 12/20/23 07:17 Pulse 76 12/20/23 08:52 Resp 18 12/20/23 07:17 BP 153/79 12/20/23 07:17 Pulse Ox 97 12/20/23 07:17 FiO2 30 12/09/23 10:00 Intake & Output 12/19/23 12/20/23 12/20/23 18:59 06:59 18:59 Output Total 250 100 Balance -250 -100 Weight 42.3 kg 42.3 kg Output: Gastric Drainage 250 100 Other: Voiding Method Bedpan # Voids 2 2 1 ABP, PAP, CO, CI - Last Documented Arterial Blood Pressure 119/92 - Exam GENERAL DESCRIPTION: An elderly female lying in bed in no distress RESPIRATORY SYSTEM: Unlabored breathing , decreased breath sounds at bases HEART: S1 S2 regular rate and rhythm , ABDOMEN: Soft , mild tenderness EXTREMITIES: No edema feet - Labs CBC & Chem 7: 12/20/23 05:34 12/20/23 05:34 Labs: Abnormal Lab Results - Last 24 Hours (Table) 12/19/23 12/19/23 12/19/23 Range/Units 12:41 15:29 17:06 RBC (4.10-5.20) X 10*6/uL Hgb (12.0-15.0) g/dL Hct (37.2-46.3) % Immature Gran # (0.00-0.04) X 10*3/uL Lymphocytes # (0.90-5.00) X 10*3/uL Sodium (137-145) mmol/L Potassium (3.5-5.1) mmol/L Creatinine (0.52-1.04) mg/dL Glucose (74-99) mg/dL POC Glucose (mg/dL) 153 H (70-110) mg/dL Calcium (8.4-10.2) mg/dL Phosphorus (2.5-4.5) mg/dL Troponin I 0.174 H* 0.168 H* (0.000-0.034) ng/mL Total Protein (6.3-8.2) g/dL Albumin (3.5-5.0) g/dL 12/20/23 12/20/23 12/20/23 Range/Units 00:05 05:34 05:34 RBC 3.09 L (4.10-5.20) X 10*6/uL Hgb 9.7 L (12.0-15.0) g/dL Hct 29.9 L (37.2-46.3) % Immature Gran # 0.11 H (0.00-0.04) X 10*3/uL Lymphocytes # 0.79 L (0.90-5.00) X 10*3/uL Sodium 133 L (137-145) mmol/L Potassium 2.9 L (3.5-5.1) mmol/L Creatinine 0.47 L (0.52-1.04) mg/dL Glucose 125 H (74-99) mg/dL POC Glucose (mg/dL) 195 H (70-110) mg/dL Calcium 7.2 L (8.4-10.2) mg/dL Phosphorus 2.1 L (2.5-4.5) mg/dL Troponin I (0.000-0.034) ng/mL Total Protein 4.1 L (6.3-8.2) g/dL Albumin 1.8 L (3.5-5.0) g/dL 12/20/23 12/20/23 Range/Units 06:03 12:17 RBC (4.10-5.20) X 10*6/uL Hgb (12.0-15.0) g/dL Hct (37.2-46.3) % Immature Gran # (0.00-0.04) X 10*3/uL Lymphocytes # (0.90-5.00) X 10*3/uL Sodium (137-145) mmol/L Potassium (3.5-5.1) mmol/L Creatinine (0.52-1.04) mg/dL Glucose (74-99) mg/dL POC Glucose (mg/dL) 145 H 123 H (70-110) mg/dL Calcium (8.4-10.2) mg/dL Phosphorus (2.5-4.5) mg/dL Troponin I (0.000-0.034) ng/mL Total Protein (6.3-8.2) g/dL Albumin (3.5-5.0) g/dL Assessment and Plan (1) Intra-abdominal abscess Current Visit: Yes Status: Acute Code(s): K65.1 - PERITONEAL ABSCESS SNOMED Code(s): 34982203 (2) Allergy to multiple antibiotics Current Visit: Yes Status: Acute Code(s): Z88.1 - ALLERGY STATUS TO OTHER ANTIBIOTIC AGENTS SNOMED Code(s): 103858682 (3) Perforated viscus Current Visit: Yes Status: Acute Code(s): R19.8 - OTH SYMPTOMS AND SIGNS INVOLVING THE DGSTV SYS AND ABDOMEN SNOMED Code(s): 318283381 Plan: 1patient presented to hospital with abdominal pain has been diagnosed with a perforated viscus in this patient was status post laparotomy with evidence of perforated sigmoid diverticulitis status post laparotomy sigmoid colectomy and end colostomy for likely organism need to cover will be enteric gram-negative both aerobes and anaerobes 2-patient did have repeat CT has with evidence of partial versus complete bowel obstruction NG has been placed which the patient has been tolerating 3-the patient white count normalized remains to be afebrile, we will continue the patient on cefepime and Flagyl and monitor clinical course closely Dictation was produced using [employer] dictation software. please excuse any grammatical, word or spelling errors. Time with Patient: Less than 30
--- NOTE | 2023-12-20 14:21 | P.PN ---
Subjective Progress Note Date: 12/20/23 The patient is seen today December 19, 2023 and follow-up on the regular medical floor. She is currently sitting up in bed. Awake and alert in no acute distress. She is maintaining O2 saturations in the 90s on room air. Nasogastric tube remains in place. Still having some mild abdominal discomfort. Ostomy with minimal output. Mild bloating. CT scan of the abdomen from yesterday revealed redemonstrated and overall stable appearance of findings concerning for small bowel obstruction with dilated small bowel loops and suspected transition point within the lower abdomen. No contrast is visualized extending into the colon. No plans for surgery at this point. Continuing conservative management per surgical services. Plan is for PICC line placement and to be transitioned to TPN. White count 11.5. Hemoglobin 10.9. Platelets 383. Sodium 133. Potassium 3.1. Bicarb 30. BUN 13. Creatinine 0.59. Glucose 102. Troponin 0.167, 0.174. Cardiology has been consulted. The patient is seen today December 20, 2023 in follow-up on the regular medical floor. She is awake and alert in no acute distress. She is sitting up in bed. She is maintaining O2 saturations in the 90s on room air. Nasogastric tube remains in place. She remains nothing by mouth. Abdominal x-ray today reveals gastric tube in appropriate position. No dilated loops of bowel identified. TPN at 30 MLS per hour for nutritional support. She remains on Flagyl and cefepime. White count 9.2. Hemoglobin 9.7. Platelets 322. Sodium 133. Potassium 2.9. Bicarb 27. BUN 12. Creatinine 0.47. Glucose 125. Objective - Vital Signs Vital signs: Vital Signs Temp 98.7 F 12/20/23 07:17 Pulse 76 12/20/23 08:52 Resp 18 12/20/23 07:17 BP 153/79 12/20/23 07:17 Pulse Ox 97 12/20/23 07:17 FiO2 30 12/09/23 10:00 Intake & Output 12/19/23 12/20/23 12/20/23 18:59 06:59 18:59 Output Total 250 100 Balance -250 -100 Weight 42.3 kg 42.3 kg Output: Gastric Drainage 250 100 Other: Voiding Method Bedpan Bedpan # Voids 2 2 1 ABP, PAP, CO, CI - Last Documented Arterial Blood Pressure 119/92 - Exam GENERAL EXAM: Awake, alert, pleasant 78-year-old female, on room air, in no apparent distress. HEAD: Normocephalic. EYES: Sluggish reaction of pupils, equal size. NOSE: Clear with pink turbinates. Nasogastric tube secured in place. THROAT: Nasogastric tube secured in place. No erythema or exudates. NECK: No masses, no JVD. CHEST: No chest wall deformity. LUNGS: Equal air entry with faint crackles in the posterior bases. CVS: S1 and S2 normal with no audible murmur, regular rhythm. ABDOMEN: Abdominal dressing dry and intact. Left abdominal ostomy present. SPINE: No scoliosis or deformity SKIN: No rashes CENTRAL NERVOUS SYSTEM: Sedated, tone is normal in all 4 extremities. EXTREMITIES: There is no peripheral edema. No clubbing, no cyanosis. Peripheral pulses are intact. - Labs CBC & Chem 7: 12/20/23 05:34 12/20/23 05:34 Labs: Abnormal Lab Results - Last 24 Hours (Table) 12/19/23 12/19/23 12/20/23 Range/Units 15:29 17:06 00:05 RBC (4.10-5.20) X 10*6/uL Hgb (12.0-15.0) g/dL Hct (37.2-46.3) % Immature Gran # (0.00-0.04) X 10*3/uL Lymphocytes # (0.90-5.00) X 10*3/uL Sodium (137-145) mmol/L Potassium (3.5-5.1) mmol/L Creatinine (0.52-1.04) mg/dL Glucose (74-99) mg/dL POC Glucose (mg/dL) 153 H 195 H (70-110) mg/dL Calcium (8.4-10.2) mg/dL Phosphorus (2.5-4.5) mg/dL Troponin I 0.168 H* (0.000-0.034) ng/mL Total Protein (6.3-8.2) g/dL Albumin (3.5-5.0) g/dL 12/20/23 12/20/23 12/20/23 Range/Units 05:34 05:34 06:03 RBC 3.09 L (4.10-5.20) X 10*6/uL Hgb 9.7 L (12.0-15.0) g/dL Hct 29.9 L (37.2-46.3) % Immature Gran # 0.11 H (0.00-0.04) X 10*3/uL Lymphocytes # 0.79 L (0.90-5.00) X 10*3/uL Sodium 133 L (137-145) mmol/L Potassium 2.9 L (3.5-5.1) mmol/L Creatinine 0.47 L (0.52-1.04) mg/dL Glucose 125 H (74-99) mg/dL POC Glucose (mg/dL) 145 H (70-110) mg/dL Calcium 7.2 L (8.4-10.2) mg/dL Phosphorus 2.1 L (2.5-4.5) mg/dL Troponin I (0.000-0.034) ng/mL Total Protein 4.1 L (6.3-8.2) g/dL Albumin 1.8 L (3.5-5.0) g/dL 12/20/23 Range/Units 12:17 RBC (4.10-5.20) X 10*6/uL Hgb (12.0-15.0) g/dL Hct (37.2-46.3) % Immature Gran # (0.00-0.04) X 10*3/uL Lymphocytes # (0.90-5.00) X 10*3/uL Sodium (137-145) mmol/L Potassium (3.5-5.1) mmol/L Creatinine (0.52-1.04) mg/dL Glucose (74-99) mg/dL POC Glucose (mg/dL) 123 H (70-110) mg/dL Calcium (8.4-10.2) mg/dL Phosphorus (2.5-4.5) mg/dL Troponin I (0.000-0.034) ng/mL Total Protein (6.3-8.2) g/dL Albumin (3.5-5.0) g/dL Assessment and Plan Assessment: Severe acute abdominal pain secondary to perforated sigmoid diverticulitis. Status post exploratory laparotomy, sigmoid colectomy, end colostomy on December 08, 2023. Most recent CT scan of the abdomen reveals small bowel obstruction. Plan is for conservative management if possible. Nasogastric tube remains in place. Initiated on TPN via PICC line Acute hypoxemic respiratory failure secondary to above requiring prolonged ventilation postoperatively, recovered and on room air Severe protein calorie malnutrition with a BMI of less than 20 kg/m History of gastric ulcers and esophagitis History of rheumatoid arthritis History of chronic obstructive pulmonary disease History of chronic tobacco dependence History of hypertension History of hyperlipidemia History of gastroesophageal reflux disease Plan: The patient was seen and evaluated X-ray of the abdomen, labs and medications reviewed Remains stable and on room air Nasal gastric tube remains in place TPN initiated Continue Flagyl and cefepime Increase her activity as tolerated Continue to work with the incentive spirometer We will continue to follow I have personally seen and examined the patient, performed the documentation and the assessment and plan as written. Number of minutes spent on the visit: 10.
--- NOTE | 2023-12-20 14:32 | P.PN ---
Subjective Progress Note Date: 12/20/23 CHIEF COMPLAINT: Perforated sigmoid diverticulitis HISTORY OF PRESENT ILLNESS: Patient is postop day #8 status post exploratory laparotomy, sigmoid colectomy and end colostomy. Patient reports her abdominal pain is staying about the same. She is requiring the IV pain medication. Small amount of liquid stool from her ostomy. She is working with physical therapy. Denies any nausea. She has NG tube in place with 400 mL output. She has TPN for nutrition support. Afebrile. WBC normalized at 9.28. Potassium 2.9 and being replaced. Abdominal x-ray reports gastric tube in appropriate position. No dilated loops of bowel identified. PHYSICAL EXAM: VITAL SIGNS: Reviewed. GENERAL: Well-developed in no acute distress. ABDOMEN: Mildly distended. Incision clean dry intact. James in place. Small amount of liquidy stool in ostomy bag. NEUROLOGIC: Alert and oriented. Cranial nerves II through XII grossly intact. ASSESSMENT: 1. Perforated sigmoid diverticulitis status post exploratory laparotomy, sigmoid colectomy with end colostomy 2. Small bowel obstruction versus ileus after recent surgery 3. Urinary retention resolved 4. Hypokalemia PLAN: -Continue NG tube for decompression -Keep patient n.p.o. -Potassium being replaced -Continue TPN for nutrition support -Continue antibiotics -Encourage patient to use incentive spirometer -GI prophylaxis Protonix DVT prophylaxis subcu heparin Physician Burring Machine Operator note has been reviewed by physician. Signing provider agrees with the documented findings, assessment, and plan of care. I have personally seen and examined the patient, reviewed the CNC MACHINE OPERATOR /PAs history, exam and MDM and agree with the assessment and plan as written. Based on total visit time, I have performed more than 50% of the visit. As above: Patient has no pain currently. Still no significant ostomy output. Abdominal x-rays show no definite small bowel dilation. Continue bowel decompression. Possible small bowel series on . Will try to contact family with an update. Objective - Vital Signs Vital signs: Vital Signs Temp 98.7 F 12/20/23 07:17 Pulse 76 12/20/23 08:52 Resp 18 12/20/23 07:17 BP 153/79 12/20/23 07:17 Pulse Ox 97 12/20/23 07:17 FiO2 30 12/09/23 10:00 Intake & Output 12/19/23 12/20/2312/20/24 18:59 06:59 18:59 Output Total 250 100 Balance -250 -100 Weight 42.3 kg 42.3 kg Output: Gastric Drainage 250 100 Other: Voiding Method Bedpan Bedpan # Voids 2 2 1 ABP, PAP, CO, CI - Last Documented Arterial Blood Pressure 119/92 - Labs CBC & Chem 7: 12/20/23 05:34 12/20/23 05:34 Labs: Abnormal Lab Results - Last 24 Hours (Table) 12/19/23 12/19/23 12/20/23 Range/Units 15:29 17:06 00:05 RBC (4.10-5.20) X 10*6/uL Hgb (12.0-15.0) g/dL Hct (37.2-46.3) % Immature Gran # (0.00-0.04) X 10*3/uL Lymphocytes # (0.90-5.00) X 10*3/uL Sodium (137-145) mmol/L Potassium (3.5-5.1) mmol/L Creatinine (0.52-1.04) mg/dL Glucose (74-99) mg/dL POC Glucose (mg/dL) 153 H 195 H (70-110) mg/dL Calcium (8.4-10.2) mg/dL Phosphorus (2.5-4.5) mg/dL Troponin I 0.168 H* (0.000-0.034) ng/mL Total Protein (6.3-8.2) g/dL Albumin (3.5-5.0) g/dL 12/20/23 12/20/23 12/20/23 Range/Units 05:34 05:34 06:03 RBC 3.09 L (4.10-5.20) X 10*6/uL Hgb 9.7 L (12.0-15.0) g/dL Hct 29.9 L (37.2-46.3) % Immature Gran # 0.11 H (0.00-0.04) X 10*3/uL Lymphocytes # 0.79 L (0.90-5.00) X 10*3/uL Sodium 133 L (137-145) mmol/L Potassium 2.9 L (3.5-5.1) mmol/L Creatinine 0.47 L (0.52-1.04) mg/dL Glucose 125 H (74-99) mg/dL POC Glucose (mg/dL) 145 H (70-110) mg/dL Calcium 7.2 L (8.4-10.2) mg/dL Phosphorus 2.1 L (2.5-4.5) mg/dL Troponin I (0.000-0.034) ng/mL Total Protein 4.1 L (6.3-8.2) g/dL Albumin 1.8 L (3.5-5.0) g/dL 12/20/23 Range/Units 12:17 RBC (4.10-5.20) X 10*6/uL Hgb (12.0-15.0) g/dL Hct (37.2-46.3) % Immature Gran # (0.00-0.04) X 10*3/uL Lymphocytes # (0.90-5.00) X 10*3/uL Sodium (137-145) mmol/L Potassium (3.5-5.1) mmol/L Creatinine (0.52-1.04) mg/dL Glucose (74-99) mg/dL POC Glucose (mg/dL) 123 H (70-110) mg/dL Calcium (8.4-10.2) mg/dL Phosphorus (2.5-4.5) mg/dL Troponin I (0.000-0.034) ng/mL Total Protein (6.3-8.2) g/dL Albumin (3.5-5.0) g/dL
[2023-12-20 17:39] LABS: Glucose,Whole Blood 130 mg/dL (70-110)
[2023-12-20] MEDS: SODIUM PHOSPHATE 15 MMOL in DEXTROSE 5% IN WATER 250 ML IVPB ONE (18:08)
[2023-12-20] MEDS: MVI, ADULT NO.4 WITH VIT K 10 ML, TRACE (CONC-1ML/DOSE) 1 ML, POTASSIUM CHLORIDE 40 MEQ... IV SCH (18:37)
--- NOTE | 2023-12-20 19:40 | P.PN ---
Progress Note - Text Progress Note Date: 12/20/23 - Chief Complaint Abdominal pain - History of Present Illness This is a pleasant 78-year-old patient, chronic stable medical conditions include COPD, hypertension, rheumatoid arthritis. Patient is active smoker. Patient with 3 days been having increasing abdominal pain. Presented to the ER. CT scan showed free air. Patient was taken to the OR yesterday by Dr. Lentz. Underwent exploratory laparotomy. Found to have a perforated sigmoid d iverticulitis. Sigmoid colectomy with end colostomy was done. Today in the ICU: Extubated earlier today. 2 L nasal cannula. Has NG tube to suction. No output in the colostomy bag. Son at the bedside. Pain at the surgical site. December 10: Patient moved out of the ICU. NG tube to intermittent suction. Did not sleep well yesterday. States when she tries to close her eyes she starts hallucinating. Given one-time dose of Haldol. Having significant pain at the operative site. Pain medications per surgical team. No output through colostomy bag. Discussed with nurse. Sons at the bedside. Also added Nicorette gum as needed. Hypoglycemia: Change IV fluids to D5.45. Patient on IV cefepime and IV Flagyl. December 11: NG tube in place. Plan for it to be discontinued this afternoon. Very little output from the colostomy bag. Did sleep her last night.'s some hallucinations. Discussed with the patient's son. Try to cut back on IV narcotics balance between pain control and side effects. December 12: NG tube was discontinued yesterday. Remains NPO per surgery. No output from the colostomy bag. Did not sleep well last night. Chewing gum ordered. Remains on IV cefepime. IV Flagyl. For blood pressure start Catapres patch 0.2. December 13: Patient be started on clear liquids by surgery. Some stool from the colostomy bag. Pain better. Pain switched over to oral pain medications. Abdominal wound cultures growing E. coli and alphahemolytic Streptococcus. Remains on IV cefepime and IV Flagyl. Abdominal pain better. December 14: Patient having dark stool output through the colostomy bag. Did sit up in a chair. On full liquid diet. Patient requested to have a home dose of Percocet as opposed to [place]. Ordered. Blood pressure running high. Increase Lopressor to 50 mg twice daily. December 15: Patient advance to low fiber diet today. Eating some. Abdominal pain much better. Colostomy bag working. gum worker looking into discharge planning. December 16: Patient complaining of increasing abdominal pain. More distention. Some stool from the colostomy bag. Patient made NPO. On antibiotics. CT scan abdomen ordered. December 17: Continues to have abdominal pain. NG tube to suction. Some stool in the colostomy bag. CT scan from yesterday showed partial versus complete bowel obstruction. December 18: Abdominal pain present. NG tube to suction. Some stool in the colostomy bag. On IV cefepime and IV Flagyl. Tired. December 19: Improvement in abdominal pain. No secondary perforation. Was felt to be partial obstruction. NG tube remains in place. Remains NPO. Patient had some chest pain this afternoon. Troponins were ordered. Cardiology was ordered. Telemetry. December 20: Patient seen by cardiology. [place] to be type II [place]. 2D echo. No IV heparin. Patient having abdominal pain. NG tube remains in place. NPO. Patient was started IV peripheral nutrition. Active Medications Albuterol Sulfate (Albuterol Nebulized 2.5 Mg/3 Ml) 2.5 mg INHALATION RT-Q4H PRN PRN Reason: Shortness Of Breath Albuterol/Ipratropium (Ipratropium-Albuterol 3 Ml Neb) 3 ml INHALATION RT-Q2H PRN PRN Reason: Shortness Of Breath Or Wheezing Albuterol/Ipratropium (Ipratropium-Albuterol 3 Ml Neb) 3 ml INHALATION RT-QID [facility] Last Admin: 12/20/23 15:32 Dose: 3 ml Atorvastatin Calcium (Atorvastatin 20 Mg Tab) 20 mg PO DAILY [facility] Last Admin: 12/20/23 11:03 Dose: 20 mg Baclofen (Baclofen 10 Mg Tab) 10 mg PO HS [facility] Last Admin: 12/19/23 22:23 Dose: 10 mg Benzocaine (Benzocaine [place] 1 Can) 1 spray MUCOUS MEM QID PRN; Protocol PRN Reason: Mouth Irritation Last Admin: 12/10/23 00:20 Dose: 1 spray Benzocaine/Menthol (Benzocaine/Menthol Lozeng 1 Each Lozenge) 1 each MUCOUS MEM Q4HR PRN PRN Reason: Sore Throat Last Admin: 12/16/23 18:17 Dose: 1 each Budesonide (Budesonide 1 Mg/2 Ml Nebu) 1 mg INHALATION RT-BID [facility] Last Admin: 12/20/23 08:32 Dose: 1 mg Clonidine HCl (Clonidine 0.2 Mg/24hr Patch) 1 patch TRANSDERM Q7D [facility] Last Admin: 12/19/23 17:38 Dose: 1 patch Dextrose/Water (Dextrose 50% Syringe 50 Ml) 25 ml IVP PER PROTOCOL PRN; Protocol PRN Reason: Hypoglycemia Last Admin: 12/17/23 19:34 Dose: 25 ml Dextrose/Water (Dextrose 50% Syringe 50 Ml) 50 ml IVP PER PROTOCOL PRN; Protocol PRN Reason: Hypoglycemia Formoterol Fumarate (Formoterol Fumarate 20 Mcg/2 Ml Nebu) 20 mcg INHALATION RT-BID [facility] Last Admin: 12/20/23 08:31 Dose: 20 mcg Heparin Sodium (Porcine) (Heparin Sodium,Porcine 5,000 Unit/Ml 1 Ml Vial) 5,000 unit SQ Q8HR ANN Last Admin: 12/20/23 18:35 Dose: 5,000 unit Hydroxychloroquine Sulfate (Hydroxychloroquine Sulfate 200 Mg Tab) 200 mg PO BID [facility] Last Admin: 12/20/23 11:03 Dose: 200 mg Metronidazole 500 mg/ IV (Solution) 100 mls @ 100 mls/hr IVPB Q8HR ANN; Protocol Last Admin: 12/20/23 18:08 Dose: 100 mls/hr Acetaminophen 550 mg/ IV (Solution) 55 mls @ 220 mls/hr IVPB Q8HR PRN PRN Reason: Pain Stop: 12/22/23 23:00 Last Admin: 12/17/23 20:42 Dose: 220 mls/hr Dextrose/Sodium Chloride (Dextrose 5%-Ns Iv Soln) 1,000 mls @ 100 mls/hr IV .Q10H [facility] Last Admin: 12/20/23 18:09 Dose: Not Given Fat Emulsion Intravenous (Lipids 20%) 250 mls @ 20.833 mls/hr IV MoTh@1400 [facility] Last Admin: 12/19/23 15:26 Dose: 20.833 mls/hr Parenteral Vitamin Supplement 10 ml/ Zinc/Copper/Manganese/Selenium 1 ml/ Potassium Chloride 40 meq/ Amino Ac/Electrol/Dextrose/Calcium 1,031 mls @ 30 mls/hr IV .Q24H [facility] Last Admin: 12/20/23 18:37 Dose: Not Given Cefepime HCl 2 gm/ Sodium (Chloride) 100 mls @ 25 mls/hr IVPB Q8HR [facility]; Protoco l Last Admin: 12/20/23 18:08 Dose: 25 mls/hr Metoprolol Tartrate (Metoprolol Tartrate 5 Mg/5 Ml Vial) 5 mg IVP Q6HR PRN PRN Reason: Blood Pressure - High Last Admin: 12/16/23 21:54 Dose: 5 mg Metoprolol Tartrate (Metoprolol Tartrate 50 Mg Tab) 50 mg PO BID [facility] Last Admin: 12/20/23 11:03 Dose: 50 mg Miscellaneous Information (Magnesium Replacement Protocol 1 Each Misc) 1 each MISCELLANE DAILY PRN; Protocol PRN Reason: Per Protocol Miscellaneous Information (Potassium Replacement Protocol 1 Each Misc) 1 each MISCELLANE DAILY PRN; Protocol PRN Reason: Per Protocol Montelukast Sodium (Montelukast 10 Mg Tab) 10 mg PO DAILY [facility] Last Admin: 12/20/23 11:04 Dose: 10 mg Morphine Sulfate (Morphine Sulfate 4 Mg/Ml Syringe) 4 mg IVP Q3HR PRN PRN Reason: Pain Last Admin: 12/20/23 18:07 Dose: 4 mg Naloxone HCl (Naloxone 0.4 Mg/Ml 1 Ml Vial) 0.2 mg IV Q2M PRN PRN Reason: Opioid Reversal Nicotine (Nicotine 21mg/24hr Patch) 1 patch TRANSDERM DAILY [facility] Last Admin: 12/20/23 11:16 Dose: 1 patch Nicotine Polacrilex (Nicotine Gum (Polacrilex) 2 Mg Gum) 2 mg BUCCAL Q4HR PRN PRN Reason: Nicotine Cravings Oxycodone/Acetaminophen (Oxycodone-Apap 7.5-325mg 1 Each Tab) 1 each PO Q6H PRN PRN Reason: Pain Last Admin: 12/16/23 16:11 Dose: 1 each Pantoprazole Sodium (Pantoprazole Sodium 40 Mg Granule Pkt) 40 mg PO AC-BID [facility] Last Admin: 12/20/23 18:35 Dose: 40 mg Temazepam (Temazepam 15 Mg Cap) 15 mg PO HS PRN PRN Reason: Insomnia Last Admin: 12/19/23 22:24 Dose: 15 mg Social history: Patient been smoking for many years. Was up to 4 packs a day. Now down to a pack a day. Works at [employer]. Lives with her son. Physical examination: VITAL SIGNS: 97.6, 71, 18, 157 x 76, 94% room air GENERAL: Laying in bed, a bit uncomfortable EYES: Pupils equal. Conjunctiva normal HEENT: External appearance of nose and ears normal, oral cavity grossly normal. Diminished hearing in the right ear. NG tube to suction NECK: JVD not raised; masses not palpable. HEART: First and second heart sounds are normal; no edema. LUNGS:[ Respiratory rate increased, diminished breath sounds. ABDOMEN: Soft, tenderness,, no guarding rigidity, liver spleen not palpable, no masses palpable. Left-sided colostomy bag-some dark stool. PSYCH: [Alert and oriented x3; mood and affect anxious. MUSCULOSKELETAL:No Clubbing/cyanosis;muscles-grossly intact INVESTIGATIONS, reviewed in the clinical context: December 20: White count 9.2 hemoglobin 9.7 sodium 133 potassium 2.9 creatinine 0.47 December 19: Troponin I 0.167, 0.174, 0.168 December 18: Sodium 131 potassium 3.3 December 17: White count 9.2 hemoglobin 13.2 sodium 129 potassium 3.[address] scan abdomen [December 16]: Evidence of possibly complete bowel obstruction possibly December 16: White count 12.7 hemoglobin 11.9 December 15: White count 11 hemoglobin 11.4 potassium 3.6 creatinine 0.55 Abdominal wound culture: E. coli and alphahemolytic Streptococcus. December 09: White count 10.8 hemoglobin 10.9 platelets 254 sodium 135 potassium 3.8 BUN 20 creatinine 0.61 Chest x-ray film personally reviewed by me-hyperinflation Telemetry strip bedside monitor: Personally reviewed by me. Sinus rhythm CT scan abdomen pelvis: Moderate prominence of the stomach. Severe wall thickening of the gastric antrum. Distal colonic diverticulosis. Free air identified anterior to the bladder. Assessment and plan: -Acute sigmoid diverticulitis with perforation. Cultures growing E. coli and alphahemolytic Streptococcus: Worsening abdominal symptoms today.: Slow to respond Patient underwent sigmoid resection and formation of her colostomy on December [address] Lentz. Made NPO. CT scan abdomen [December 16:] Possibly near complete bowel obstruction. NG tube reinserted: Slow to respond IV cefepime and IV Flagyl. -Anterior chest wall pain. Non-ST elevation [place]. Type II. Troponin positive at 0.167 with no rise and fall. Telemetry. Cardiology following. 2D echo-pending. -Severe hypokalemia: Replace Replace potassium -Secondary peritonitis from hollow viscus perforation IV cefepime and IV Flagyl. ID following -COPD and a current smoker DuoNeb 3 times daily. Singulair.. Breztri inhaler -Chronic nicotine dependence, cigarette smoker Nicotine patch -Hyperlipidemia Lipitor 20 mg a day -Severe protein calorie malnutrition. BMI 18.3. Peripheral nutrition -Chronic muscle spasm Baclofen as needed -Peptic ulcer disease PPI -Hypoglycemia from poor oral intake: Better -Peripheral nutrition -Essential hypertension. Better controlled Lopressor to 50 mg twice daily -Insomnia with hallucinations. Restoril. NG tube to suction. IV fluids. IV cefepime and IV Flagyl. Pending 2D echo. Taking oral medications. Change IV fluids to LR. Thank you Dr. Lentz Past Medical History Past Medical History: COPD, Hypertension, Rheumatoid Arthritis (RA) Additional Past Medical History / Comment(s): bleeding ulcer History of Any Multi-Drug Resistant Organisms: None Reported Past Surgical History: Tubal Ligation Additional Past Surgical History / Comment(s): Eye surgery (cataracts removed). Past Anesthesia/Blood Transfusion Reactions: No Reported Reaction Past Psychological History: No Psychological Hx Reported Smoking Status: Current every day smoker Past Alcohol Use History: Rare Past Drug Use History: None Reported
[2023-12-20] MEDS: LACTATED RINGERS 1,000 ML IV SCH (22:16)
[2023-12-21 01:00] LABS: Glucose,Whole Blood 106 mg/dL (70-110)
[2023-12-21 06:01] LABS: Glucose,Whole Blood 104 mg/dL (70-110)
[2023-12-21 07:07] LABS: ALT 20 U/L (4-34); AST 27 U/L (14-36); African American GFR (CKD) >90 (>60 ml/min/1.73 sqM); Albumin 1.6 g/dL (3.5-5.0); Albumin/Globulin Ratio 0.8; Alkaline Phosphatase 47 U/L (38-126); Anion Gap 1 mmol/L; Blood Urea Nitrogen 15 mg/dL (7-17); Calcium 7.2 mg/dL (8.4-10.2); Carbon Dioxide 23 mmol/L (22-30); Chloride 109 mmol/L (98-107); Glucose 95 mg/dL (74-99); Magnesium 1.8 mg/dL (1.6-2.3); Non-African American GFR(CKD) >90 (>60 ml/min/1.73 sqM); Phosphorus 2.5 mg/dL (2.5-4.5); Potassium 3.8 mmol/L (3.5-5.1); Sodium 133 mmol/L (137-145); Total Bilirubin 0.3 mg/dL (0.2-1.3); Total Protein 3.6 g/dL (6.3-8.2)
--- NOTE | 2023-12-21 11:26 | P.PN ---
Subjective Progress Note Date: 12/21/23 Principal diagnosis: Reason for follow-up is perforated diverticulitis and abscess Patient is a 78-year-old female with a past medical history significant for COPD hypertension rheumatoid arthritis presenting to the ER for evaluation of epigastric abdominal pain, patient did have a CT abdominal pelvis concerning for free subsequently taken to the OR status post laparotomy with evidence of perforated sigmoid diverticulitis status post sigmoid colectomy and end colostomy. On today's evaluation that is 12/21/2023,the patient denies any fever or any chills, patient is breathing comfortably on room air, the patient denies chest pain shortness of breath patient did have a cough with occasional sputum production, patient abdominal pain has slightly decreased in intensity, no nausea vomiting still have the NG did have output in her colostomy. Patient creatinine 0.36 white count was 9.28 as of yesterday no CBC was done today Objective - Vital Signs Vital signs: Vital Signs Temp 98.4 F 12/21/23 07:33 Pulse 78 12/21/23 08:39 Resp 17 12/21/23 07:33 BP 132/77 12/21/23 07:33 Pulse Ox 97 12/21/23 07:33 FiO2 30 12/09/23 10:00 Intake & Output 12/20/23 12/21/23 12/21/23 18:59 06:59 18:59 Weight 42.3 kg Other: Voiding Method Bedpan Bedpan # Voids 1 4 1 # Bowel Movements 1 ABP, PAP, CO, CI - Last Documented Arterial Blood Pressure 119/92 - Exam GENERAL DESCRIPTION: An elderly female lying in bed in no distress RESPIRATORY SYSTEM: Unlabored breathing , decreased breath sounds at bases HEART: S1 S2 regular rate and rhythm , ABDOMEN: Soft , mild tenderness EXTREMITIES: No edema feet - Labs CBC & Chem 7: 12/20/23 05:34 12/21/23 06:11 Labs: Abnormal Lab Results - Last 24 Hours (Table) 12/20/23 12/20/23 12/20/23 Range/Units 05:34 12:17 17:38 RBC 3.09 L (4.10-5.20) X 10*6/uL Hgb 9.7 L (12.0-15.0) g/dL Hct 29.9 L (37.2-46.3) % Immature Gran # 0.11 H (0.00-0.04) X 10*3/uL Lymphocytes # 0.79 L (0.90-5.00) X 10*3/uL Sodium (137-145) mmol/L Chloride (98-107) mmol/L Creatinine (0.52-1.04) mg/dL POC Glucose (mg/dL) 123 H 130 H (70-110) mg/dL Calcium (8.4-10.2) mg/dL Total Protein (6.3-8.2) g/dL Albumin (3.5-5.0) g/dL 12/21/23 Range/Units 06:11 RBC (4.10-5.20) X 10*6/uL Hgb (12.0-15.0) g/dL Hct (37.2-46.3) % Immature Gran # (0.00-0.04) X 10*3/uL Lymphocytes # (0.90-5.00) X 10*3/uL Sodium 133 L (137-145) mmol/L Chloride 109 H (98-107) mmol/L Creatinine 0.36 L (0.52-1.04) mg/dL POC Glucose (mg/dL) (70-110) mg/dL Calcium 7.2 L (8.4-10.2) mg/dL Total Protein 3.6 L (6.3-8.2) g/dL Albumin 1.6 L (3.5-5.0) g/dL Assessment and Plan (1) Intra-abdominal abscess Current Visit: Yes Status: Acute Code(s): K65.1 - PERITONEAL ABSCESS SNOMED Code(s): 20641298 (2) Allergy to multiple antibiotics Current Visit: Yes Status: Acute Code(s): Z88.1 - ALLERGY STATUS TO OTHER ANTIBIOTIC AGENTS SNOMED Code(s): 915533652 (3) Perforated viscus Current Visit: Yes Status: Acute Code(s): R19.8 - OTH SYMPTOMS AND SIGNS INVOLVING THE DGSTV SYS AND ABDOMEN SNOMED Code(s): 368424856 Plan: 1patient presented to hospital with abdominal pain has been diagnosed with a perforated viscus in this patient was status post laparotomy with evidence of perforated sigmoid diverticulitis status post laparotomy sigmoid colectomy and end colostomy for likely organism need to cover will be enteric gram-negative both aerobes and anaerobes 2-patient did have repeat CT has with evidence of partial versus complete bowel obstruction NG has been placed which the patient has been tolerating 3-the patient white count normalized as of yesterday and the patient is afebrile,, the patient will be continued on cefepime and Flagyl and hopefully transition to oral home once her oral intakes improves Dictation was produced using [employer] dictation software. please excuse any grammatical, word or spelling errors. Time with Patient: Less than 30
[2023-12-21 11:36] LABS: Glucose,Whole Blood 126 mg/dL (70-110)
--- NOTE | 2023-12-21 12:45 | P.PN ---
Subjective Progress Note Date: 12/21/23 The patient is seen today December 19, 2023 and follow-up on the regular medical floor. She is currently sitting up in bed. Awake and alert in no acute distress. She is maintaining O2 saturations in the 90s on room air. Nasogastric tube remains in place. Still having some mild abdominal discomfort. Ostomy with minimal output. Mild bloating. CT scan of the abdomen from yesterday revealed redemonstrated and overall stable appearance of findings concerning for small bowel obstruction with dilated small bowel loops and suspected transition point within the lower abdomen. No contrast is visualized extending into the colon. No plans for surgery at this point. Continuing conservative management per surgical services. Plan is for PICC line placement and to be transitioned to TPN. White count 11.5. Hemoglobin 10.9. Platelets 383. Sodium 133. Potassium 3.1. Bicarb 30. BUN 13. Creatinine 0.59. Glucose 102. Troponin 0.167, 0.174. Cardiology has been consulted. The patient is seen today December 20, 2023 in follow-up on the regular medical floor. She is awake and alert in no acute distress. She is sitting up in bed. She is maintaining O2 saturations in the 90s on room air. Nasogastric tube remains in place. She remains nothing by mouth. Abdominal x-ray today reveals gastric tube in appropriate position. No dilated loops of bowel identified. TPN at 30 MLS per hour for nutritional support. She remains on Flagyl and cefepime. White count 9.2. Hemoglobin 9.7. Platelets 322. Sodium 133. Potassium 2.9. Bicarb 27. BUN 12. Creatinine 0.47. Glucose 125. The patient is seen today December 21, 2023 in follow-up on the regular medical floor. She is sitting up in bed. Awake and alert in no acute distress. Nasogastric tube remains in place. She denies any worsening abdominal discomfort. Ostomy is functioning. She remains on TPN at 30 MLS per hour for nutritional support. Continued on Flagyl and cefepime. Continued on bronchodilators. NicoDerm patch in place. Heparin for DVT prophylaxis. Sodium 133. Potassium 3.8. Bicarb 23. BUN 15. Creatinine 0.36. Glucose 95. Objective - Vital Signs Vital signs: Vital Signs Temp 98.4 F 12/21/23 07:33 Pulse 78 12/21/23 12:17 Resp 17 12/21/23 07:33 BP 132/77 12/21/23 07:33 Pulse Ox 97 12/21/23 07:33 FiO2 30 12/09/23 10:00 Intake & Output 12/20/23 12/21/23 12/21/23 18:59 06:59 18:59 Weight 42.3 kg Other: Voiding Method Bedpan Bedpan # Voids 1 4 1 # Bowel Movements 1 ABP, PAP, CO, CI - Last Documented Arterial Blood Pressure 119/92 - Exam GENERAL EXAM: Awake, 78-year-old female, on room air, in no apparent distress. HEAD: Normocephalic. EYES: Sluggish reaction of pupils, equal size. NOSE: Clear with pink turbinates. Nasogastric tube secured in place. THROAT: Nasogastric tube secured in place. No erythema or exudates. NECK: No masses, no JVD. CHEST: No chest wall deformity. LUNGS: Equal air entry with faint crackles in the posterior bases. CVS: S1 and S2 normal with no audible murmur, regular rhythm. ABDOMEN: Abdominal dressing dry and intact. Left abdominal ostomy present. SPINE: No scoliosis or deformity SKIN: No rashes CENTRAL NERVOUS SYSTEM: Sedated, tone is normal in all 4 extremities. EXTREMITIES: There is no peripheral edema. No clubbing, no cyanosis. Peripheral pulses are intact. - Labs CBC & Chem 7: 12/20/23 05:34 12/21/23 06:11 Labs: Abnormal Lab Results - Last 24 Hours (Table) 12/20/23 12/21/23 12/21/23 Range/Units 17:38 06:11 11:35 Sodium 133 L (137-145) mmol/L Chloride 109 H (98-107) mmol/L Creatinine 0.36 L (0.52-1.04) mg/dL POC Glucose (mg/dL) 130 H 126 H (70-110) mg/dL Calcium 7.2 L (8.4-10.2) mg/dL Total Protein 3.6 L (6.3-8.2) g/dL Albumin 1.6 L (3.5-5.0) g/dL Assessment and Plan Assessment: Severe acute abdominal pain secondary to perforated sigmoid diverticulitis. Status post exploratory laparotomy, sigmoid colectomy, end colostomy on December 08, 2023. Most recent CT scan of the abdomen reveals small bowel obstruction. Plan is for conservative management if possible. Nasogastric tube remains in place. Initiated on TPN via PICC line Acute hypoxemic respiratory failure secondary to above requiring prolonged ventilation postoperatively, recovered and on room air Severe protein calorie malnutrition with a BMI of less than 20 kg/m History of gastric ulcers and esophagitis History of rheumatoid arthritis History of chronic obstructive pulmonary disease History of chronic tobacco dependence History of hypertension History of hyperlipidemia History of gastroesophageal reflux disease Plan: The patient was seen and evaluated Labs and medications reviewed Nasal gastric tube remains in place TPN for nutritional support Continue Flagyl and cefepime Continue to work with the incentive spirometer Increase her activity as tolerated We will continue to follow I have personally seen and examined the patient, performed the documentation and the assessment and plan as written. Number of minutes spent on the visit: 10.
--- NOTE | 2023-12-21 13:47 | P.PN ---
Subjective HISTORY OF PRESENT ILLNESS: This is a 78-year-old female with a past medical history significant for arthritis, hypertension, hyperlipidemia, nicotine dependence, carotid stenosis, and valvular heart disease. Patient follows in the office with Dr. Mabry. We have been asked to see the patient in consultation for ST changes on telemetry. Patient examined at the bedside. Patient is status post exploratory laparotomy, sigmoid colectomy, and end colostomy secondary to perforated sigmoid diverticulitis on December 08, 2023. The patient was doing well postoperatively. However, she developed abdominal distention, nausea, and decreased stool output from her ostomy. Patient had an NG tube reinserted and states she felt significantly better afterwards. At the time of examination, she has had no significant ostomy function. She denies having any chest pain or pressure. She denies any shortness of breath. All signs are stable. DIAGNOSTICS: - EKG reveals sinus mechanism with T wave inversions in V3V6 - Laboratory data: Troponin 0.167. Patient's troponins have been chronically elevated back to 2019 with troponin of 0.038. 0.123. 0.089. - Current home cardiac medications include Lipitor 20 mg daily, metoprolol tartrate 25 mg twice a day. - Most recent echocardiogram obtained in December 2022 revealed ejection fraction 60 to 65%, grade 2 diastolic function, mild LVH with LIO, moderate AR, mild to moderate MR, RVSP 28 mmHg 12/20/2023 Patient examined this morning at the bedside. Patient denies any chest pain or pressure. She denies shortness of breath. She remains n.p.o. with an NG tube to low intermittent suction. She denies any significant output from her ostomy. Troponin 0.136. 0.174. 0.168. 2D echo is currently pending. 12/21/2023 Patient examined this afternoon at the bedside. Patient denies any chest pain or pressure. She denies shortness of breath. She remains n.p.o. with an NG tube to low intermittent suction. Vital signs are stable. 2D echo remains pending. PHYSICAL EXAM: VITAL SIGNS: Reviewed. GENERAL: Well-developed in no acute distress. HEENT: Head is normocephalic. Pupils are equal, round. Sclerae anicteric. Mucous membranes of the mouth are moist. Neck supple. No JVD or thyromegaly LUNGS: Respirations even and unlabored. Lungs essentially clear to auscultation bilaterally. HEART: Regular rate and rhythm. S1 and S2 heard. Systolic murmur noted. ABDOMEN: Soft. Mildly distended. Ostomy present. EXTREMITIES: Normal range of motion. No clubbing or cyanosis. Peripheral pulses intact. No lower extremity edema NEUROLOGIC: Awake and alert. Oriented x 3. ASSESSMENT: Perforated sigmoid diverticulitis, status post exploratory laparotomy, sigmoid colectomy, and end colostomy Postoperative small bowel obstruction versus ileus Elevated troponin, flat, suspect type II CO secondary to above History of hypertension History of hyperlipidemia Carotid stenosis History of arthritis Nicotine dependence Valvular heart disease PLAN: Continue postoperative management per general surgery 2D echo has been ordered. Await results No plans to begin IV heparin secondary to recent surgery. Suspect troponin elevation is due to type II CO Further recommendations pending patient course Nurse practitioner note has been reviewed by physician. Signing provider agrees with the documented findings, assessment, and plan of care documented by OPERATIONS SUPERVISOR 2ND SHIFT as a scribe. Objective - Vital Signs Vital signs: Vital Signs Temp 98.4 F 12/21/23 07:33 Pulse 78 12/21/23 12:17 Resp 17 12/21/23 07:33 BP 132/77 12/21/23 07:33 Pulse Ox 97 12/21/23 07:33 FiO2 30 12/09/23 10:00 Intake & Output 12/20/23 12/21/23 12/21/23 18:59 06:59 18:59 Weight 42.3 kg Other: Voiding Method Bedpan Bedpan # Voids 1 4 1 # Bowel Movements 1 ABP, PAP, CO, CI - Last Documented Arterial Blood Pressure 119/92 - Labs CBC & Chem 7: 12/20/23 05:34 12/21/23 06:11 Labs: Abnormal Lab Results - Last 24 Hours (Table) 12/20/23 12/21/23 12/21/23 Range/Units 17:38 06:11 11:35 Sodium 133 L (137-145) mmol/L Chloride 109 H (98-107) mmol/L Creatinine 0.36 L (0.52-1.04) mg/dL POC Glucose (mg/dL) 130 H 126 H (70-110) mg/dL Calcium 7.2 L (8.4-10.2) mg/dL Total Protein 3.6 L (6.3-8.2) g/dL Albumin 1.6 L (3.5-5.0) g/dL
--- NOTE | 2023-12-21 15:12 | P.PN ---
Subjective Progress Note Date: 12/21/23 CHIEF COMPLAINT: Perforated sigmoid diverticulitis HISTORY OF PRESENT ILLNESS: Patient is postop day #9 status post exploratory laparotomy, sigmoid colectomy and end colostomy. Patient reports her pain is improving. She reports pain across the lower abdomen. There is more stool output in her ostomy. Afebrile. Potassium 3.8 up from 2.9 PHYSICAL EXAM: VITAL SIGNS: Reviewed. GENERAL: Well-developed in no acute distress. ABDOMEN: Mildly distended. Incision clean dry intact. James in place. Small amount of liquidy stool in ostomy bag. NEUROLOGIC: Alert and oriented. Cranial nerves II through XII grossly intact. ASSESSMENT: 1. Perforated sigmoid diverticulitis status post exploratory laparotomy, sigmoid colectomy with end colostomy 2. Small bowel obstruction versus ileus after recent surgery 3. Urinary retention resolved 4. Hypokalemia improved PLAN: -Continue NG tube for decompression -Keep patient n.p.o. -Continue TPN for nutrition support -Continue antibiotics -Encourage patient to use incentive spirometer -Encourage patient to increase activity level. Continue to work with PT OT. Patient to to go to [facility] when discharged -GI prophylaxis Protonix DVT prophylaxis subcu heparin Physician [employer]ault Attendant note has been reviewed by physician. Signing provider agrees with the documented findings, assessment, and plan of care. Objective - Vital Signs Vital signs: Vital Signs Temp 98.4 F 12/21/23 07:33 Pulse 78 12/21/23 12:17 Resp 17 12/21/23 07:33 BP 132/77 12/21/23 07:33 Pulse Ox 97 12/21/23 07:33 FiO2 30 12/09/23 10:00 Intake & Output 12/20/23 12/21/23 12/21/23 18:59 06:59 18:59 Weight 42.3 kg Other: Voiding Method Bedpan Bedpan # Voids 1 4 1 # Bowel Movements 1 ABP, PAP, CO, CI - Last Documented Arterial Blood Pressure 119/92 - Labs CBC & Chem 7: 12/20/23 05:34 12/21/23 06:11 Labs: Abnormal Lab Results - Last 24 Hours (Table) 12/20/23 12/21/23 12/21/23 Range/Units 17:38 06:11 11:35 Sodium 133 L (137-145) mmol/L Chloride 109 H (98-107) mmol/L Creatinine 0.36 L (0.52-1.04) mg/dL POC Glucose (mg/dL) 130 H 126 H (70-110) mg/dL Calcium 7.2 L (8.4-10.2) mg/dL Total Protein 3.6 L (6.3-8.2) g/dL Albumin 1.6 L (3.5-5.0) g/dL
[2023-12-21 17:25] LABS: Glucose,Whole Blood 102 mg/dL (70-110)
--- NOTE | 2023-12-21 20:44 | P.PN ---
Progress Note - Text Progress Note Date: 12/21/23 - Chief Complaint Abdominal pain - History of Present Illness This is a pleasant 78-year-old patient, chronic stable medical conditions include COPD, hypertension, rheumatoid arthritis. Patient is active smoker. Patient with 3 days been having increasing abdominal pain. Presented to the ER. CT scan showed free air. Patient was taken to the OR yesterday by Dr. Lentz. Underwent exploratory laparotomy. Found to have a perforated sigmoid d iverticulitis. Sigmoid colectomy with end colostomy was done. Today in the ICU: Extubated earlier today. 2 L nasal cannula. Has NG tube to suction. No output in the colostomy bag. Son at the bedside. Pain at the surgical site. December 10: Patient moved out of the ICU. NG tube to intermittent suction. Did not sleep well yesterday. States when she tries to close her eyes she starts hallucinating. Given one-time dose of Haldol. Having significant pain at the operative site. Pain medications per surgical team. No output through colostomy bag. Discussed with nurse. Sons at the bedside. Also added Nicorette gum as needed. Hypoglycemia: Change IV fluids to D5.45. Patient on IV cefepime and IV Flagyl. December 11: NG tube in place. Plan for it to be discontinued this afternoon. Very little output from the colostomy bag. Did sleep her last night.'s some hallucinations. Discussed with the patient's son. Try to cut back on IV narcotics balance between pain control and side effects. December 12: NG tube was discontinued yesterday. Remains NPO per surgery. No output from the colostomy bag. Did not sleep well last night. Chewing gum ordered. Remains on IV cefepime. IV Flagyl. For blood pressure start Catapres patch 0.2. December 13: Patient be started on clear liquids by surgery. Some stool from the colostomy bag. Pain better. Pain switched over to oral pain medications. Abdominal wound cultures growing E. coli and alphahemolytic Streptococcus. Remains on IV cefepime and IV Flagyl. Abdominal pain better. December 14: Patient having dark stool output through the colostomy bag. Did sit up in a chair. On full liquid diet. Patient requested to have a home dose of Percocet as opposed to [place]. Ordered. Blood pressure running high. Increase Lopressor to 50 mg twice daily. December 15: Patient advance to low fiber diet today. Eating some. Abdominal pain much better. Colostomy bag working. 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 December 16: Patient complaining of increasing abdominal pain. More distention. Some stool from the colostomy bag. Patient made NPO. On antibiotics. CT scan abdomen ordered. December 17: Continues to have abdominal pain. NG tube to suction. Some stool in the colostomy bag. CT scan from yesterday showed partial versus complete bowel obstruction. December 18: Abdominal pain present. NG tube to suction. Some stool in the colostomy bag. On IV cefepime and IV Flagyl. Tired. December 19: Improvement in abdominal pain. No secondary perforation. Was felt to be partial obstruction. NG tube remains in place. Remains NPO. Patient had some chest pain this afternoon. Troponins were ordered. Cardiology was ordered. Telemetry. December 20: Patient seen by cardiology. [place] to be type II ND. 2D echo. No IV heparin. Patient having abdominal pain. NG tube remains in place. NPO. Patient was started IV peripheral nutrition. December 21: Feeling better. Decreased pain. Decreased distention. Some bowel movement in the colostomy bag. NG tube to suction. Getting peripheral nutrition. Active Medications Albuterol Sulfate (Albuterol Nebulized 2.5 Mg/3 Ml) 2.5 mg INHALATION RT-Q4H PRN PRN Reason: Shortness Of Breath Albuterol/Ipratropium (Ipratropium-Albuterol 3 Ml Neb) 3 ml INHALATION RT-Q2H PRN PRN Reason: Shortness Of Breath Or Wheezing Albuterol/Ipratropium (Ipratropium-Albuterol 3 Ml Neb) 3 ml INHALATION RT-QID [facility] Last Admin: 12/21/23 19:45 Dose: Not Given Atorvastatin Calcium (Atorvastatin 20 Mg Tab) 20 mg PO DAILY [facility] Last Admin: 12/21/23 08:33 Dose: 20 mg Baclofen (Baclofen 10 Mg Tab) 10 mg PO HS [facility] Last Admin: 12/21/23 20:33 Dose: 10 mg Benzocaine (Benzocaine [place] 1 Can) 1 spray MUCOUS MEM QID PRN; Protocol PRN Reason: Mouth Irritation Last Admin: 12/10/23 00:20 Dose: 1 spray Benzocaine/Menthol (Benzocaine/Menthol Lozeng 1 Each Lozenge) 1 each MUCOUS MEM Q4HR PRN PRN Reason: Sore Throat Last Admin: 12/16/23 18:17 Dose: 1 each Budesonide (Budesonide 1 Mg/2 Ml Nebu) 1 mg INHALATION RT-BID [facility] Last Admin: 12/21/23 19:44 Dose: Not Given Clonidine HCl (Clonidine 0.2 Mg/24hr Patch) 1 patch TRANSDERM Q7D [facility] Last Admin: 12/19/23 17:38 Dose: 1 patch Dextrose/Water (Dextrose 50% Syringe 50 Ml) 25 ml IVP PER PROTOCOL PRN; Protocol PRN Reason: Hypoglycemia Last Admin: 12/17/23 19:34 Dose: 25 ml Dextrose/Water (Dextrose 50% Syringe 50 Ml) 50 ml IVP PER PROTOCOL PRN; Protocol PRN Reason: Hypoglycemia Formoterol Fumarate (Formoterol Fumarate 20 Mcg/2 Ml Nebu) 20 mcg INHALATION RT-BID [facility] Last Admin: 12/21/23 19:44 Dose: Not Given Heparin Sodium (Porcine) (Heparin Sodium,Porcine 5,000 Unit/Ml 1 Ml Vial) 5,000 unit SQ Q8HR ANN Last Admin: 12/21/23 15:40 Dose: 5,000 unit Hydroxychloroquine Sulfate (Hydroxychloroquine Sulfate 200 Mg Tab) 200 mg PO BID [facility] Last Admin: 12/21/23 20:33 Dose: 200 mg Metronidazole 500 mg/ IV (Solution) 100 mls @ 100 mls/hr IVPB Q8HR ANN; Pro tocol Last Admin: 12/21/23 15:40 Dose: 100 mls/hr Acetaminophen 550 mg/ IV (Solution) 55 mls @ 220 mls/hr IVPB Q8HR PRN PRN Reason: Pain Stop: 12/22/23 23:00 Last Admin: 12/17/23 20:42 Dose: 220 mls/hr Fat Emulsion Intravenous (Lipids 20%) 250 mls @ 20.833 mls/hr IV MoTh@1400 [facility] Last Admin: 12/19/23 15:26 Dose: 20.833 mls/hr Parenteral Vitamin Supplement 10 ml/ Zinc/Copper/Manganese/Selenium 1 ml/ Potassium Chloride 40 meq/ Amino Ac/Electrol/Dextrose/Calcium 1,031 mls @ 30 mls/hr IV .Q24H [facility] Last Admin: 12/21/23 00:17 Dose: 30 mls/hr Cefepime HCl 2 gm/ Sodium (Chloride) 100 mls @ 25 mls/hr IVPB Q8HR [facility]; Protocol Last Admin: 12/21/23 16:56 Dose: 25 mls/hr Lactated Ringer's (Lactated Ringers) 1,000 mls @ 75 mls/hr IV .[id number] [facility] Last Admin: 12/21/23 15:41 Dose: 75 mls/hr Metoprolol Tartrate (Metoprolol Tartrate 5 Mg/5 Ml Vial) 5 mg IVP Q6HR PRN PRN Reason: Blood Pressure - High Last Admin: 12/16/23 21:54 Dose: 5 mg Metoprolol Tartrate (Metoprolol Tartrate 50 Mg Tab) 50 mg PO BID [facility] Last Admin: 12/21/23 20:33 Dose: 50 mg Miscellaneous Information (Magnesium Replacement Protocol 1 Each Misc) 1 each MISCELLANE DAILY PRN; Protocol PRN Reason: Per Protocol Miscellaneous Information (Potassium Replacement Protocol 1 Each Misc) 1 each MISCELLANE DAILY PRN; Protocol PRN Reason: Per Protocol Montelukast Sodium (Montelukast 10 Mg Tab) 10 mg PO DAILY [facility] Last Admin: 12/21/23 08:34 Dose: 10 mg Morphine Sulfate (Morphine Sulfate 4 Mg/Ml Syringe) 4 mg IVP Q3HR PRN PRN Reason: Pain Last Admin: 12/21/23 17:55 Dose: 4 mg Naloxone HCl (Naloxone 0.4 Mg/Ml 1 Ml Vial) 0.2 mg IV Q2M PRN PRN Reason: Opioid Reversal Nicotine (Nicotine 21mg/24hr Patch) 1 patch TRANSDERM DAILY [facility] Last Admin: 12/21/23 08:34 Dose: 1 patch Nicotine Polacrilex (Nicotine Gum (Polacrilex) 2 Mg Gum) 2 mg BUCCAL Q4HR PRN PRN Reason: Nicotine Cravings Oxycodone/Acetaminophen (Oxycodone-Apap 7.5-325mg 1 Each Tab) 1 each PO Q6H PRN PRN Reason: Pain Last Admin: 12/21/23 15:40 Dose: 1 each Pantoprazole Sodium (Pantoprazole Sodium 40 Mg Granule Pkt) 40 mg PO AC-BID [facility] Last Admin: 12/21/23 17:55 Dose: 40 mg Temazepam (Temazepam 15 Mg Cap) 15 mg PO HS PRN PRN Reason: Insomnia Last Admin: 12/21/23 20:36 Dose: 15 mg Social history: Patient been smoking for many years. Was up to 4 packs a day. Now down to a pack a day. Works at [employer]. Lives with her son. Physical examination: VITAL SIGNS: 97.9, 75, 18, 115/64, 95% room air GENERAL: L reclining in bed, but more comfortable EYES: Pupils equal. Conjunctiva normal HEENT: External appearance of nose and ears normal, oral cavity grossly normal. Diminished hearing in the right ear. NG tube to suction NECK: JVD not raised; masses not palpable. HEART: First and second heart sounds are normal; no edema. LUNGS:[ Respiratory rate increased, diminished breath sounds. ABDOMEN: Soft, decreased tenderness,, no guarding rigidity, liver spleen not palpable, no masses palpable. Left-sided colostomy bag-some dark stool. PSYCH: [Alert and oriented x3; mood and affect anxious. MUSCULOSKELETAL:No Clubbing/cyanosis;muscles-grossly intact INVESTIGATIONS, reviewed in the clinical context: December 21: Sodium 133 potassium 3.8 creatinine 0.36 albumin 1.6 December 20: White count 9.2 hemoglobin 9.7 sodium 133 potassium 2.9 creatinine 0.47 December 19: Troponin I 0.167, 0.174, 0.168 December 18: Sodium 131 potassium 3.3 December 17: White count 9.2 hemoglobin 13.2 sodium 129 potassium 3[address] scan abdomen [December 16]: Evidence of possibly complete bowel obstruction possibly December 16: White count 12.7 hemoglobin 11.9 December 15: White count 11 hemoglobin 11.4 potassium 3.6 creatinine 0.55 Abdominal wound culture: E. coli and alphahemolytic Streptococcus. December 09: White count 10.8 hemoglobin 10.9 platelets 254 sodium 135 potassium 3.8 BUN 20 creatinine 0.61 Chest x-ray film personally reviewed by me-hyperinflation Telemetry strip bedside monitor: Personally reviewed by me. Sinus rhythm CT scan abdomen pelvis: Moderate prominence of the stomach. Severe wall thickening of the gastric antrum. Distal colonic diverticulosis. Free air identified anterior to the bladder. Assessment and plan: -Acute sigmoid diverticulitis with perforation. Cultures growing E. coli and alphahemolytic Streptococcus: Worsening abdominal symptoms today.: Slow to respond Patient underwent sigmoid resection and formation of her colostomy on December [address] Lentz. Made NPO. CT scan abdomen [December 16:] Possibly near complete bowel obst ruction. NG tube reinserted: Slow improvement IV cefepime and IV Flagyl. -Anterior chest wall pain. Non-ST elevation ND. Type II. Troponin positive at 0.167 with no rise and fall. Telemetry. Cardiology following. 2D echo-pending. -Severe hypokalemia: Replace Replace potassium -Secondary peritonitis from hollow viscus perforation IV cefepime and IV Flagyl. ID following -COPD and a current smoker DuoNeb 3 times daily. Singulair.. Breztri inhaler -Chronic nicotine dependence, cigarette smoker Nicotine patch -Hyperlipidemia Lipitor 20 mg a day -Severe protein calorie malnutrition. BMI 18.3. Peripheral nutrition -Chronic muscle spasm Baclofen as needed -Peptic ulcer disease PPI -Hypoglycemia from poor oral intake: Better -Peripheral nutrition -Essential hypertension. Better controlled Lopressor to 50 mg twice daily -Insomnia with hallucinations. Restoril. NG tube to suction. IV fluids. IV cefepime and IV Flagyl. Pending 2D echo. Some improvement in abdominal distention and passing flatus. Decreased abdominal pain.. Thank you Dr. Lentz Past Medical History Past Medical History: COPD, Hypertension, Rheumatoid Arthritis (RA) Additional Past Medical History / Comment(s): bleeding ulcer History of Any Multi-Drug Resistant Organisms: None Reported Past Surgical History: Tubal Ligation Additional Past Surgical History / Comment(s): Eye surgery (cataracts removed). Past Anesthesia/Blood Transfusion Reactions: No Reported Reaction Past Psychological History: No Psychological Hx Reported Smoking Status: Current every day smoker Past Alcohol Use History: Rare Past Drug Use History: None Reported
[2023-12-22 00:16] LABS: Glucose,Whole Blood 98 mg/dL (70-110)
[2023-12-22 05:54] LABS: Glucose,Whole Blood 97 mg/dL (70-110)
[2023-12-22 07:58] LABS: ALT 22 U/L (4-34); AST 32 U/L (14-36); African American GFR (CKD) >90 (>60 ml/min/1.73 sqM); Albumin 1.8 g/dL (3.5-5.0); Albumin/Globulin Ratio 0.8; Alkaline Phosphatase 58 U/L (38-126); Anion Gap -1 mmol/L; Blood Urea Nitrogen 16 mg/dL (7-17); Calcium 7.7 mg/dL (8.4-10.2); Carbon Dioxide 25 mmol/L (22-30); Chloride 109 mmol/L (98-107); Globulin 2.4 g/dL; Glucose 84 mg/dL (74-99); Magnesium 1.8 mg/dL (1.6-2.3); Non-African American GFR(CKD) >90 (>60 ml/min/1.73 sqM); Phosphorus 2.4 mg/dL (2.5-4.5); Potassium 4.1 mmol/L (3.5-5.1); Sodium 133 mmol/L (137-145); Total Bilirubin 0.3 mg/dL (0.2-1.3); Total Protein 4.2 g/dL (6.3-8.2)
--- NOTE | 2023-12-22 09:07 | CA ---
Transthoracic Echo Report Name: Latoya Dan Age: 78 Gender: F : 1945 Exam Date: 12/21/2023 15:56 Exam Location: [facility] Ht (in): 62 Wt (lb): 93 Ordering Physician: Neha Pizarro Attending/Referring Phys: [id number], Juarez Lathe Operator Blaise Ramos RD Procedure CPT: Indications: LV function, abnormal trop Cardiac Hx: Technical Quality: Fair Contrast 1: Total Dose (mL): Contrast 2: Total Dose (mL): MEASUREMENTS (Male / Female) Normal Values 2D ECHO LV Diastolic Diameter PLAX 3.6 cm 4.2 - 5.9 / 3.9 - 5.3 cm LV Systolic Diameter PLAX 2.1 cm IVS Diastolic Thickness 1.1 cm 0.6 - 1.0 / 0.6 - 0.9 cm LVPW Diastolic Thickness 1.3 cm 0.6 - 1.0 / 0.6 - 0.9 cm LV Relative Wall Thickness 0.7 LVOT Diameter 1.9 cm Aortic Root Diameter 3.0 cm LA Systolic Diameter LX 2.4 cm 3.0 - 4.0 / 2.7 - 3.8 cm LV Diastolic Volume MOD BP 34.6 cm??? 67 - 155 / 56 - 104 cm??? LV Systolic Volume MOD BP 8.1 cm??? - 58 / 19 - 49 cm??? LV Ejection Fraction MOD BP 76.7 % >= 55 % LV Cardiac Index MOD BP 1496.2 cm???/min???m??? LV Diastolic Volume MOD 4C 31.1 cm??? LV Systolic Volume MOD 4C 6.1 cm??? LV Ejection Fraction MOD 4C 80.6 % LV Cardiac Index MOD 4C 1413.0 cm???/min???m??? LV Diastolic Length 4C 5.9 cm LV Systolic Length 4C 4.7 cm LV Diastolic Volume MOD 2C 37.7 cm??? LV Systolic Volume MOD 2C 9.3 cm??? LV Ejection Fraction MOD 2C 75.3 % LV Cardiac Index MOD 2C 1600.1 cm???/min???m??? LV Diastolic Length 2C 6.1 cm LV Systolic Length 2C 5.5 cm LA Volume 44.9 cm??? 18 - 58 / 22 - 52 cm??? LA Volume Index 33.3 cm???/m??? 16 - 28 cm???/m??? DOPPLER AV Peak Velocity 147.6 cm/s AV Peak Gradient 8.7 mmHg AV Mean Velocity 104.0 cm/s AV Mean Gradient 5.0 mmHg AV Velocity Time Integral 35.5 cm AI Peak Velocity 424.9 cm/s AI Peak Gradient 72.2 mmHg AI Pressure Half Time 463.7 ms LVOT Peak Velocity 142.8 cm/s LVOT Peak Gradient 8.2 mmHg LVOT Velocity Time Integral 34.1 cm LVOT Stroke Volume 95.0 cm??? LVOT Stroke Volume Index 68.8 ml/m??? LVOT Cardiac Index 5355.2 cm???/min???m??? AV Area Cont Eq vti 2.7 cm??? AV Area Cont Eq pk 2.7 cm??? MV Peak Velocity 121.8 cm/s MV Peak Gradient 5.9 mmHg MV Mean Velocity 71.4 cm/s MV Mean Gradient 2.5 mmHg MV Velocity Time Integral 33.2 cm MR Peak Velocity 418.2 cm/s MR Peak Gradient 70.0 mmHg Mitral E Point Velocity 99.3 cm/s Mitral A Point Velocity 113.9 cm/s Mitral E to A Ratio 0.9 MV Deceleration Time 146.3 ms MV E' Velocity 5.4 cm/s Mitral E to MV E' Ratio 18.2 TR Peak Velocity 252.5 cm/s TR Peak Gradient 25.5 mmHg Right Ventricular Systolic Press 30.5 mmHg PV Peak Velocity 87.0 cm/s PV Peak Gradient 3.0 mmHg FINDINGS Left Ventricle Normal LV size. Severe concentric hypertrophy. Left ventricular ejection fraction is estimated at 65-70% Right Ventricle Normal right ventricular size. RVSP= 30mmHg. Right Atrium Normal right atrial size. Left Atrium Left atrial dilatation. LA volume index= 32ml/m2 Mitral Valve Structurally normal mitral valve. Mild to moderate MR. Aortic Valve Trileaflet aortic valve. Mild to moderate calcification. Moderate AI. Tricuspid Valve Structurally normal tricuspid valve. Pulmonic Valve Pulmonic valve not well visualized. No pulmonic regurgitation. Pericardium Bilateral pleural effusion. Aorta Normal size aortic root. CONCLUSIONS Severe increased left ventricular wall thickness Left ventricular ejection fraction 65% RVSP 30 Mild to moderate mitral regurgitation Moderate aortic insufficiency Pleural effusion noted Previewed by: Dr. Casa Zaragoza DO (Electronically Signed) Final Date: 22 December 2023 09:06
--- NOTE | 2023-12-22 11:23 | P.PN ---
Subjective Progress Note Date: 12/22/23 Principal diagnosis: Reason for follow-up is perforated diverticulitis and abscess Patient is a 78-year-old female with a past medical history significant for COPD hypertension rheumatoid arthritis presenting to the ER for evaluation of epigastric abdominal pain, patient did have a CT abdominal pelvis concerning for free subsequently taken to the OR status post laparotomy with evidence of perforated sigmoid diverticulitis status post sigmoid colectomy and end colostomy. On today's evaluation that is 12/22/2023,the patient remains to be afebrile, patient is on room air not requiring supplemental oxygen and denies any shortness of breath no chest pain did have occasional cough.Patient denies having any nausea or vomiting, abdominal pain is currently controlled did have output in her colostomy. Patient did have a creatinine 0.40 no CBC was done today last white count was normal Objective - Vital Signs Vital signs: Vital Signs Temp 97.7 F 12/22/23 07:01 Pulse 85 12/22/23 09:27 Resp 17 12/22/23 07:01 BP 156/70 12/22/23 07:01 Pulse Ox 96 12/22/23 07:01 FiO2 30 12/09/23 10:00 Intake & Output 12/21/23 12/22/23 12/22/23 18:59 06:59 18:59 Output Total 120 Balance -120 Weight 42.3 kg Output: Stool 120 Other: # Voids 1 4 # Bowel Movements 1 ABP, PAP, CO, CI - Last Documented Arterial Blood Pressure 119/92 - Exam GENERAL DESCRIPTION: An elderly female lying in bed in no distress RESPIRATORY SYSTEM: Unlabored breathing , decreased breath sounds at bases HEART: S1 S2 regular rate and rhythm , ABDOMEN: Soft , mild tenderness EXTREMITIES: No edema feet - Labs CBC & Chem 7: 12/20/23 05:34 12/22/23 06:32 Labs: Abnormal Lab Results - Last 24 Hours (Table) 12/21/23 12/22/23 Range/Units 11:35 06:32 Sodium 133 L (137-145) mmol/L Chloride 109 H (98-107) mmol/L Creatinine 0.40 L (0.52-1.04) mg/dL POC Glucose (mg/dL) 126 H (70-110) mg/dL Calcium 7.7 L (8.4-10.2) mg/dL Phosphorus 2.4 L (2.5-4.5) mg/dL Total Protein 4.2 L (6.3-8.2) g/dL Albumin 1.8 L (3.5-5.0) g/dL Assessment and Plan (1) Intra-abdominal abscess Current Visit: Yes Status: Acute Code(s): K65.1 - PERITONEAL ABSCESS SNOMED Code(s): 30835829 (2) Allergy to multiple antibiotics Current Visit: Yes Status: Acute Code(s): Z88.1 - ALLERGY STATUS TO OTHER ANTIBIOTIC AGENTS SNOMED Code(s): 240032218 (3) Perforated viscus Current Visit: Yes Status: Acute Code(s): R19.8 - OTH SYMPTOMS AND SIGNS INVOLVING THE DGSTV SYS AND ABDOMEN SNOMED Code(s): 681102972 Plan: 1patient presented to hospital with abdominal pain has been diagnosed with a perforated viscus in this patient was status post laparotomy with evidence of perforated sigmoid diverticulitis status post laparotomy sigmoid colectomy and end colostomy for likely organism need to cover will be enteric gram-negative both aerobes and anaerobes 2-patient did have repeat CT has with evidence of partial versus complete bowel obstruction NG has been placed which the patient has been tolerating 3-the patient remains to be afebrile, last white count was normal and she has some clinical improvement, the patient will be continued on cefepime and Flagyl and monitor clinical course closely Dictation was produced using [employer] dictation software. please excuse any grammatical, word or spelling errors. Time with Patient: Less than 30
[2023-12-22 11:36] LABS: Glucose,Whole Blood 109 mg/dL (70-110)
--- NOTE | 2023-12-22 11:38 | P.PN ---
Subjective HISTORY OF PRESENT ILLNESS: This is a 78-year-old female with a past medical history significant for arthritis, hypertension, hyperlipidemia, nicotine dependence, carotid stenosis, and valvular heart disease. Patient follows in the office with Dr. Mabry. We have been asked to see the patient in consultation for ST changes on telemetry. Patient examined at the bedside. Patient is status post exploratory laparotomy, sigmoid colectomy, and end colostomy secondary to perforated sigmoid diverticulitis on December 08, 2023. The patient was doing well postoperatively. However, she developed abdominal distention, nausea, and decreased stool output from her ostomy. Patient had an NG tube reinserted and states she felt significantly better afterwards. At the time of examination, she has had no significant ostomy function. She denies having any chest pain or pressure. She denies any shortness of breath. All signs are stable. DIAGNOSTICS: - EKG reveals sinus mechanism with T wave inversions in V3V6 - Laboratory data: Troponin 0.167. Patient's troponins have been chronically elevated back to 2019 with troponin of 0.038. 0.123. 0.089. - Current home cardiac medications include Lipitor 20 mg daily, metoprolol tartrate 25 mg twice a day. - Most recent echocardiogram obtained in December 2022 revealed ejection fraction 60 to 65%, grade 2 diastolic function, mild LVH with LIO, moderate AR, mild to moderate MR, RVSP 28 mmHg 12/20/2023 Patient examined this morning at the bedside. Patient denies any chest pain or pressure. She denies shortness of breath. She remains n.p.o. with an NG tube to low intermittent suction. She denies any significant output from her ostomy. Troponin 0.136. 0.174. 0.168. 2D echo is currently pending. 12/21/2023 Patient examined this afternoon at the bedside. Patient denies any chest pain or pressure. She denies shortness of breath. She remains n.p.o. with an NG tube to low intermittent suction. Vital signs are stable. 2D echo remains pending. 12/22/2023 Patient examined this morning. Patient is sitting up in the chair. Patient denies any chest pain or pressure. She does report having some shortness of breath this morning which has since resolved. She states that she received a nebulizer treatment which improved her symptoms. She reports that she has been having output from her ostomy. She continues to have an NG tube to low intermittent suction. Echocardiogram completed revealing ejection fraction 65 to 70%, severe concentric LVH, moderate AI, mild to moderate MR bilateral pleural effusions PHYSICAL EXAM: VITAL SIGNS: Reviewed. GENERAL: Well-developed in no acute distress. HEENT: Head is normocephalic. Pupils are equal, round. Sclerae anicteric. Mucous membranes of the mouth are moist. Neck supple. No JVD or thyromegaly LUNGS: Respirations even and unlabored. Lungs essentially clear to auscultation bilaterally. HEART: Regular rate and rhythm. S1 and S2 heard. Systolic murmur noted. ABDOMEN: Soft. Ostomy present. EXTREMITIES: Normal range of motion. No clubbing or cyanosis. Peripheral pulses intact. No lower extremity edema NEUROLOGIC: Awake and alert. Oriented x 3. ASSESSMENT: Perforated sigmoid diverticulitis, status post exploratory laparotomy, sigmoid colectomy, and end colostomy Postoperative small bowel obstruction versus ileus Elevated troponin, flat, suspect type II [place] secondary to above Bilateral pleural effusions Severe LVH History of hypertension History of hyperlipidemia Carotid stenosis History of arthritis Nicotine dependence Valvular heart disease PLAN: Continue postoperative management per general surgery Recommend decrease/discontinuation of maintenance IV fluids Obtain chest x-ray and BNP Further recommendations pending patient course Nurse practitioner note has been reviewed by physician. Signing provider agrees with the documented findings, assessment, and plan of care documented by FURNACE FIRER as a scribe. Objective - Vital Signs Vital signs: Vital Signs Temp 97.7 F 12/22/23 07:01 Pulse 85 12/22/23 09:27 Resp 17 12/22/23 07:01 BP 156/70 12/22/23 07:01 Pulse Ox 96 12/22/23 07:01 FiO2 30 12/09/23 10:00 Intake & Output 12/21/23 12/22/23 12/22/23 18:59 06:59 18:59 Output Total 120 Balance -120 Weight 42.3 kg Output: Stool 120 Other: # Voids 1 4 # Bowel Movements 1 ABP, PAP, CO, CI - Last Documented Arterial Blood Pressure 119/92 - Labs CBC & Chem 7: 12/20/23 05:34 12/22/23 06:32 Labs: Abnormal Lab Results - Last 24 Hours (Table) 12/21/23 12/22/23 Range/Units 11:35 06:32 Sodium 133 L (137-145) mmol/L Chloride 109 H (98-107) mmol/L Creatinine 0.40 L (0.52-1.04) mg/dL POC Glucose (mg/dL) 126 H (70-110) mg/dL Calcium 7.7 L (8.4-10.2) mg/dL Phosphorus 2.4 L (2.5-4.5) mg/dL Total Protein 4.2 L (6.3-8.2) g/dL Albumin 1.8 L (3.5-5.0) g/dL
[2023-12-22] MEDS: SODIUM PHOSPHATE 15 MMOL in DEXTROSE 5% IN WATER 250 ML IVPB ONE (12:46)
[2023-12-22] MEDS: MVI, ADULT NO.4 WITH VIT K 10 ML, TRACE (CONC-1ML/DOSE) 1 ML, POTASSIUM CHLORIDE 40 MEQ... IV SCH (13:23)
--- NOTE | 2023-12-22 13:44 | P.PN ---
Subjective Progress Note Date: 12/22/23 The patient is seen today December 19, 2023 and follow-up on the regular medical floor. She is currently sitting up in bed. Awake and alert in no acute distress. She is maintaining O2 saturations in the 90s on room air. Nasogastric tube remains in place. Still having some mild abdominal discomfort. Ostomy with minimal output. Mild bloating. CT scan of the abdomen from yesterday revealed redemonstrated and overall stable appearance of findings concerning for small bowel obstruction with dilated small bowel loops and suspected transition point within the lower abdomen. No contrast is visualized extending into the colon. No plans for surgery at this point. Continuing conservative management per surgical services. Plan is for PICC line placement and to be transitioned to TPN. White count 11.5. Hemoglobin 10.9. Platelets 383. Sodium 133. Potassium 3.1. Bicarb 30. BUN 13. Creatinine 0.59. Glucose 102. Troponin 0.167, 0.174. Cardiology has been consulted. The patient is seen today December 20, 2023 in follow-up on the regular medical floor. She is awake and alert in no acute distress. She is sitting up in bed. She is maintaining O2 saturations in the 90s on room air. Nasogastric tube remains in place. She remains nothing by mouth. Abdominal x-ray today reveals gastric tube in appropriate position. No dilated loops of bowel identified. TPN at 30 MLS per hour for nutritional support. She remains on Flagyl and cefepime. White count 9.2. Hemoglobin 9.7. Platelets 322. Sodium 133. Potassium 2.9. Bicarb 27. BUN 12. Creatinine 0.47. Glucose 125. The patient is seen today December 21, 2023 in follow-up on the regular medical floor. She is sitting up in bed. Awake and alert in no acute distress. Nasogastric tube remains in place. She denies any worsening abdominal discomfort. Ostomy is functioning. She remains on TPN at 30 MLS per hour for nutritional support. Continued on Flagyl and cefepime. Continued on bronchodilators. NicoDerm patch in place. Heparin for DVT prophylaxis. Sodium 133. Potassium 3.8. Bicarb 23. BUN 15. Creatinine 0.36. Glucose 95. The patient is seen today December 22, 2023 and follow-up on the regular medical floor. She is currently awake and alert in no acute distress. Resting comfortably in bed. Continues to maintain good O2 saturation in the 90s on room air. She is afebrile. Hemodynamically stable. Echocardiogram reveals preserved left ventricular systolic function with ejection fraction of 65%. Sodium 133. Potassium 4.1. Bicarb 25. BUN 16. Creatinine 0.40. Glucose 84. Nasogastric tube remains in place. She remains NPO. She is receiving TPN for nutritional support. She is working well with the incentive spirometer. Objective - Vital Signs Vital signs: Vital Signs Temp 97.7 F 12/22/23 07:01 Pulse 84 12/22/23 12:48 Resp 17 12/22/23 07:01 BP 156/70 12/22/23 07:01 Pulse Ox 96 12/22/23 07:01 FiO2 30 12/09/23 10:00 Intake & Output 12/21/23 12/22/23 12/22/23 18:59 06:59 18:59 Output Total 120 Balance -120 Weight 42.3 kg 42.3 kg Output: Stool 120 Other: # Voids 1 4 # Bowel Movements 1 ABP, PAP, CO, CI - Last Documented Arterial Blood Pressure 119/92 - Exam GENERAL EXAM: Awake, 78-year-old female, resting in bed, on room air, in no apparent distress. HEAD: Normocephalic. EYES: Sluggish reaction of pupils, equal size. NOSE: Clear with pink turbinates. Nasogastric tube secured in place. THROAT: Nasogastric tube secured in place. No erythema or exudates. NECK: No masses, no JVD. CHEST: No chest wall deformity. LUNGS: Equal air entry with faint crackles in the posterior bases. CVS: S1 and S2 normal with no audible murmur, regular rhythm. ABDOMEN: Abdominal dressing dry and intact. Left abdominal ostomy present. SPINE: No scoliosis or deformity SKIN: No rashes CENTRAL NERVOUS SYSTEM: Sedated, tone is normal in all 4 extremities. EXTREMITIES: There is no peripheral edema. No clubbing, no cyanosis. Per ipheral pulses are intact. - Labs CBC & Chem 7: 12/20/23 05:34 12/22/23 06:32 Labs: Abnormal Lab Results - Last 24 Hours (Table) 12/22/23 Range/Units 06:32 Sodium 133 L (137-145) mmol/L Chloride 109 H (98-107) mmol/L Creatinine 0.40 L (0.52-1.04) mg/dL Calcium 7.7 L (8.4-10.2) mg/dL Phosphorus 2.4 L (2.5-4.5) mg/dL Total Protein 4.2 L (6.3-8.2) g/dL Albumin 1.8 L (3.5-5.0) g/dL Assessment and Plan Assessment: Severe acute abdominal pain secondary to perforated sigmoid diverticulitis. Status post exploratory laparotomy, sigmoid colectomy, end colostomy on December 08, 2023. Most recent CT scan of the abdomen reveals small bowel obstruction. Plan is for conservative management if possible. Nasogastric tube remains in place. Initiated on TPN via PICC line Acute hypoxemic respiratory failure secondary to above requiring prolonged ventilation postoperatively, recovered and on room air Severe protein calorie malnutrition with a BMI of less than 20 kg/m History of gastric ulcers and esophagitis History of rheumatoid arthritis History of chronic obstructive pulmonary disease History of chronic tobacco dependence History of hypertension History of hyperlipidemia History of gastroesophageal reflux disease Plan: The patient was seen and evaluated Labs and medications reviewed TPN for nutritional support Nasogastric tube remains in place Continue the current treatment plan Plan is for subacute rehab at discharge We will continue to follow I have personally seen and examined the patient, performed the documentation and the assessment and plan as written. Number of minutes spent on the visit: 10.
--- NOTE | 2023-12-22 14:02 | P.PN ---
Subjective Progress Note Date: 12/22/23 CHIEF COMPLAINT: Perforated sigmoid diverticulitis HISTORY OF PRESENT ILLNESS: Patient is postop day #10 status post exploratory laparotomy, sigmoid colectomy and end colostomy. Patient sitting at bedside chair. She reports that she is feeling better. Ostomy is functioning with more stool present. She does rate her pain about a 5 out of 10. Denies any nausea. NG tube in place. Afebrile. Chest x-ray ordered by cardiology service PHYSICAL EXAM: VITAL SIGNS: Reviewed. GENERAL: Well-developed in no acute distress. ABDOMEN: Mildly distended. Incision clean dry intact. James in place. Stool present in ostomy bag NEUROLOGIC: Alert and oriented. Cranial nerves II through XII grossly intact. ASSESSMENT: 1. Perforated sigmoid diverticulitis status post exploratory laparotomy, sigmoid colectomy with end colostomy 2. Small bowel obstruction versus ileus after recent surgery 3. Urinary retention resolved 4. Hypokalemia improved PLAN: -Further recommendations forthcoming per surgeon -Continue NG tube for decompression -Keep patient n.p.o. -Decrease IV fluids -Continue TPN for nutrition support -Continue antibiotics -Encourage patient to use incentive spirometer -Encourage patient to increase activity level. Continue to work with PT OT. Patient to to go to [facility] when discharged -GI prophylaxis Protonix DVT prophylaxis subcu heparin Physician Branch General Manager note has been reviewed by physician. Signing provider agrees with the documented findings, assessment, and plan of care. I have personally seen and examined the patient, reviewed the BANK CASHIER /PAs history, exam and MDM and agree with the assessment and plan as written. Based on total visit time, I have performed more than 50% of the visit. As above: Patient seems to be doing gradually better. She has more ostomy output. Remains on TPN. Continue bowel rest with gastric decompression. Tentatively plan small bowel series on Tuesday if patient without full bowel function. Increase activity. Decrease total IV fluid rate. Continue local wound care. Objective - Vital Signs Vital signs: Vital Signs Temp 97.7 F 12/22/23 07:01 Pulse 84 12/22/23 12:48 Resp 17 12/22/23 07:01 BP 156/70 12/22/23 07:01 Pulse Ox 96 12/22/23 07:01 FiO2 30 12/09/23 10:00 Intake & Output 12/21/23 12/22/23 12/22/23 18:59 06:59 18:59 Output Total 120 Balance -120 Weight 42.3 kg 42.3 kg Output: Stool 120 Other: # Voids 1 4 # Bowel Movements 1 ABP, PAP, CO, CI - Last Documented Arterial Blood Pressure 119/92 - Labs CBC & Chem 7: 12/20/23 05:34 12/22/23 06:32 Labs: Abnormal Lab Results - Last 24 Hours (Table) 12/22/23 Range/Units 06:32 Sodium 133 L (137-145) mmol/L Chloride 109 H (98-107) mmol/L Creatinine 0.40 L (0.52-1.04) mg/dL Calcium 7.7 L (8.4-10.2) mg/dL Phosphorus 2.4 L (2.5-4.5) mg/dL Total Protein 4.2 L (6.3-8.2) g/dL Albumin 1.8 L (3.5-5.0) g/dL
[2023-12-22] MEDS: MAGNESIUM SULFATE-D5W PMX 1 GM in DEXTROSE/WATER 1 100ML.BAG IVPB ONE (14:47)
--- NOTE | 2023-12-22 16:30 | CDI ---
Documentation Clarification Form Date: From: Elvie Puga Phone: [phone] Admit Date: 12/08/2023 04:19:00 AM Patient Name: Latoya Dan Visit Number: [id number] Discharge Date: ATTENTION: The Clinical Documentation Specialists (CDI) and [facility] Coding Staff appreciate your assistance in clarifying documentation. Please respond to the clarification below the line at the bottom and electronically sign. The CDI & [facility] Coding staff will review the response and follow-up if needed. Please note: Queries are made part of the Legal Health Record. If you have any questions, please contact the author of this message via ITS. Dr. Casa Zaragoza Type II AR is documented Cardiology Note on 12/19 which may lack sufficient clinical evidence/support in the medical record. Additional clarification is requested. Patient history/risk factors: "78-year-old female with a past medical history significant for COPD hypertension rheumatoid arthritis presenting to the ER for evaluation of epigastric abdominal pain, patient did have a CT abdominal pelvis concerning for free subsequently taken to the OR status post laparotomy with evidence of perforated sigmoid diverticulitis status post sigmoid colectomy and end colostomy." - Per Progress Note on 12/09 Clinical indicators: - Per Cardiology Note on 12/21 "She denies having any chest pain or pressure. She denies any shortness of breath. All signs are stable." "Troponin 0.167. Patient's troponins have been chronically elevated back to 2019 with troponin of 0.038. 0.123. 0.089." "Elevated troponin, flat, suspect type II AR secondary to above History of hypertension" Troponin: 12/19 - 0.167, 0.174, 0.168 EKG: "EKG reveals sinus mechanism with T wave inversions in V3V6" - Per Cardiology Note on 12/21 Echo 12/21: "CONCLUSIONS Severe increased left ventricular wall thickness Left ventricular ejection fraction 65% RVSP 30 Mild to moderate mitral regurgitation Moderate aortic insufficiency Pleural effusion noted" Treatment: Per Cardiology Note on 12/21 "2D echo has been ordered. Await results No plans to begin IV heparin secondary to recent surgery." After work up and study, please which diagnosis is most appropriate? [ ] Type II AR is a valid diagnosis as evidenced by the following: [ X ] Elevated troponin due to acute myocardial injury without myocardial infarction [ ] Elevated troponin due to chronic myocardial injury without myocardial infarction [ ] Type II AR ruled out, no additional diagnosis, Elevated troponins are not clinically significant [ ] Other, please specify [ ] Unable to determine Reference: [place] Fourth [place] Definition of Myocardial Infraction Type II AR is indicated when an acute myocardial injury in the setting of an abnormal troponin with a rise and fall and clinical indicators suggestive of an imbalance between myocardial oxygen supply demand with acute myocardial ischemia unrelated to coronary thrombosis as evidenced by one of the following: Symptoms of myocardial ischemia New ischemic ECG changes Development of pathological Q waves Imaging evidence of new loss of viable myocardium or new regional wall motion abnormality in a pattern consistent with an ischemic etiology MTDD
[2023-12-22 16:56] LABS: Glucose,Whole Blood 128 mg/dL (70-110)
[2023-12-22] MEDS: MAG HYDROX/AL HYDROX/SIMETH 30 ML, diphenhydrAMINE ELIXIR 75 MG, LIDOCAINE VISCOUS 2% 3... PO SCH (18:30)
--- NOTE | 2023-12-22 18:55 | P.PN ---
Progress Note - Text Progress Note Date: 12/22/23 - Chief Complaint Abdominal pain - History of Present Illness This is a pleasant 78-year-old patient, chronic stable medical conditions include COPD, hypertension, rheumatoid arthritis. Patient is active smoker. Patient with 3 days been having increasing abdominal pain. Presented to the ER. CT scan showed free air. Patient was taken to the OR yesterday by Dr. Lentz. Underwent exploratory laparotomy. Found to have a perforated sigmoid d iverticulitis. Sigmoid colectomy with end colostomy was done. Today in the ICU: Extubated earlier today. 2 L nasal cannula. Has NG tube to suction. No output in the colostomy bag. Son at the bedside. Pain at the surgical site. December 10: Patient moved out of the ICU. NG tube to intermittent suction. Did not sleep well yesterday. States when she tries to close her eyes she starts hallucinating. Given one-time dose of Haldol. Having significant pain at the operative site. Pain medications per surgical team. No output through colostomy bag. Discussed with nurse. Sons at the bedside. Also added Nicorette gum as needed. Hypoglycemia: Change IV fluids to D5.45. Patient on IV cefepime and IV Flagyl. December 11: NG tube in place. Plan for it to be discontinued this afternoon. Very little output from the colostomy bag. Did sleep her last night.'s some hallucinations. Discussed with the patient's son. Try to cut back on IV narcotics balance between pain control and side effects. December 12: NG tube was discontinued yesterday. Remains NPO per surgery. No output from the colostomy bag. Did not sleep well last night. Chewing gum ordered. Remains on IV cefepime. IV Flagyl. For blood pressure start Catapres patch 0.2. December 13: Patient be started on clear liquids by surgery. Some stool from the colostomy bag. Pain better. Pain switched over to oral pain medications. Abdominal wound cultures growing E. coli and alphahemolytic Streptococcus. Remains on IV cefepime and IV Flagyl. Abdominal pain better. December 14: Patient having dark stool output through the colostomy bag. Did sit up in a chair. On full liquid diet. Patient requested to have a home dose of Percocet as opposed to [place]. Ordered. Blood pressure running high. Increase Lopressor to 50 mg twice daily. December 15: Patient advance to low fiber diet today. Eating some. Abdominal pain much better. Colostomy bag working. workers compensation claims examiner looking into discharge planning. December 16: Patient complaining of increasing abdominal pain. More distention. Some stool from the colostomy bag. Patient made NPO. On antibiotics. CT scan abdomen ordered. December 17: Continues to have abdominal pain. NG tube to suction. Some stool in the colostomy bag. CT scan from yesterday showed partial versus complete bowel obstruction. December 18: Abdominal pain present. NG tube to suction. Some stool in the colostomy bag. On IV cefepime and IV Flagyl. Tired. December 19: Improvement in abdominal pain. No secondary perforation. Was felt to be partial obstruction. NG tube remains in place. Remains NPO. Patient had some chest pain this afternoon. Troponins were ordered. Cardiology was ordered. Telemetry. December 20: Patient seen by cardiology. Branch to be type II OH. 2D echo. No IV heparin. Patient having abdominal pain. NG tube remains in place. NPO. Patient was started IV peripheral nutrition. December 21: Feeling better. Decreased pain. Decreased distention. Some bowel movement in the colostomy bag. NG tube to suction. Getting peripheral nutrition. December 22: Reclining in bed. Decreased abdominal pain. Stool in the colostomy bag. NG tube to suction. Getting PPN. Fluid overload clinically and on chest x-ray. Give IV Lasix 20 mg x 2 doses Active Medications Albuterol Sulfate (Albuterol Nebulized 2.5 Mg/3 Ml) 2.5 mg INHALATION RT-Q4H PRN PRN Reason: Shortness Of Breath Albuterol/Ipratropium (Ipratropium-Albuterol 3 Ml Neb) 3 ml INHALATION RT-Q2H PRN PRN Reason: Shortness Of Breath Or Wheezing Albuterol/Ipratropium (Ipratropium-Albuterol 3 Ml Neb) 3 ml INHALATION RT-QID [facility] Last Admin: 12/22/23 16:23 Dose: 3 ml Atorvastatin Calcium (Atorvastatin 20 Mg Tab) 20 mg PO DAILY [facility] Last Admin: 12/22/23 10:05 Dose: 20 mg Baclofen (Baclofen 10 Mg Tab) 10 mg PO HS [facility] Last Admin: 12/21/23 20:33 Dose: 10 mg Benzocaine (Benzocaine Revloc 1 Can) 1 spray MUCOUS MEM QID PRN; Protocol PRN Reason: Mouth Irritation Last Admin: 12/10/23 00:20 Dose: 1 spray Benzocaine/Menthol (Benzocaine/Menthol Lozeng 1 Each Lozenge) 1 each MUCOUS MEM Q4HR PRN PRN Reason: Sore Throat Last Admin: 12/22/23 17:06 Dose: 1 each Budesonide (Budesonide 1 Mg/2 Ml Nebu) 1 mg INHALATION RT-BID [facility] Last Admin: 12/22/23 09:12 Dose: 1 mg Clonidine HCl (Clonidine 0.2 Mg/24hr Patch) 1 patch TRANSDERM Q7D ANN Last Admin: 12/19/23 17:38 Dose: 1 patch Al Hydroxide/Mg Hydroxide 30 ml/ Diphenhydramine HCl 75 mg/Lidocaine HCl 30 ml 0 ml PO TID ANN Last Admin: 12/22/23 18:30 Dose: 5 ml Dextrose/Water (Dextrose 50% Syringe 50 Ml) 25 ml IVP PER PROTOCOL PRN; Protocol PRN Reason: Hypoglycemia Last Admin: 12/17/23 19:34 Dose: 25 ml Dextrose/Water (Dextrose 50% Syringe 50 Ml) 50 ml IVP PER PROTOCOL PRN; Protocol PRN Reason: Hypoglycemia Formoterol Fumarate (Formoterol Fumarate 20 Mcg/2 Ml Nebu) 20 mcg INHALATION RT-BID [facility] Last Admin: 12/22/23 09:13 Dose: Not Given Heparin Sodium (Porcine) (Heparin Sodium,Porcine 5,000 Unit/Ml 1 Ml Vial) 5,000 unit SQ Q8HR ANN Last Admin: 12/22/23 16:50 Dose: 5,000 unit Hydroxychloroquine Sulfate (Hydroxychloroquine Sulfate 200 Mg Tab) 200 mg PO BID ANN Last Admin: 12/22/23 10:05 Dose: 200 mg Metronidazole 500 mg/ IV (Solution) 100 mls @ 100 mls/hr IVPB Q8HR ANN; Protocol Last Admin: 12/22/23 16:50 Dose: 100 mls/hr Acetaminophen 550 mg/ IV (Solution) 55 mls @ 220 mls/hr IVPB Q8HR PRN PRN Reason: Pain Stop: 12/22/23 23:00 Last Admin: 12/17/23 20:42 Dose: 220 mls/hr Fat Emulsion Intravenous (Lipids 20%) 250 mls @ 20.833 mls/hr IV MoTh@1400 ANN Last Admin: 12/22/23 13:24 Dose: 20.833 mls/hr Cefepime HCl 2 gm/ Sodium (Chloride) 100 mls @ 25 mls/hr IVPB Q8HR [facility]; Protocol Last Admin: 12/22/23 16:50 Dose: 25 mls/hr Parenteral Vitamin Supplement 10 ml/ Zinc/Copper/Manganese/Selenium 1 ml/ Potassium Chloride 40 meq/ Amino Ac/Electrol/Dextrose/Calcium 1,031 mls @ 52 mls/hr IV .[id number] [facility] Last Admin: 12/22/23 13:23 Dose: 52 mls/hr Metoprolol Tartrate (Metoprolol Tartrate 5 Mg/5 Ml Vial) 5 mg IVP Q6HR PRN PRN Reason: Blood Pressure - High Last Admin: 12/16/23 21:54 Dose: 5 mg Metoprolol Tartrate (Metoprolol Tartrate 50 Mg Tab) 50 mg PO BID [facility] Last Admin: 12/22/23 10:05 Dose: 50 mg Miscellaneous Information (Magnesium Replacement Protocol 1 Each Misc) 1 each MISCELLANE DAILY PRN; Protocol PRN Reason: Per Protocol Miscellaneous Information (Potassium Replacement Protocol 1 Each Misc) 1 each MISCELLANE DAILY PRN; Protocol PRN Reason: Per Protocol Montelukast Sodium (Montelukast 10 Mg Tab) 10 mg PO DAILY [facility] Last Admin: 12/22/23 10:05 Dose: 10 mg Morphine Sulfate (Morphine Sulfate 4 Mg/Ml Syringe) 4 mg IVP Q3HR PRN PRN Reason: Pain Last Admin: 12/22/23 17:05 Dose: 4 mg Naloxone HCl (Naloxone 0.4 Mg/Ml 1 Ml Vial) 0.2 mg IV Q2M PRN PRN Reason: Opioid Reversal Nicotine (Nicotine 21mg/24hr Patch) 1 patch TRANSDERM DAILY [facility] Last Admin: 12/22/23 10:05 Dose: 1 patch Nicotine Polacrilex (Nicotine Gum (Polacrilex) 2 Mg Gum) 2 mg BUCCAL Q4HR PRN PRN Reason: Nicotine Cravings Oxycodone/Acetaminophen (Oxycodone-Apap 7.5-325mg 1 Each Tab) 1 each PO Q6H PRN PRN Reason: Pain Last Admin: 12/21/23 15:40 Dose: 1 each Pantoprazole Sodium (Pantoprazole Sodium 40 Mg Granule Pkt) 40 mg PO AC-BID ANN Last Admin: 12/22/23 18:44 Dose: 40 mg Temazepam (Temazepam 15 Mg Cap) 15 mg PO HS PRN PRN Reason: Insomnia Last Admin: 12/21/23 20:36 Dose: 15 mg Social history: Patient been smoking for many years. Was up to 4 packs a day. Now down to a pack a day. Works at [employer]. Lives with her son. Physical examination: VITAL SIGNS: 97.6, 82, 17, 129 x 76, 95% room air GENERAL: Reclining in bed EYES: Pupils equal. Conjunctiva normal HEENT: External appearance of nose and ears normal, oral cavity grossly normal. Diminished hearing in the right ear. NG tube to suction NECK: JVD not raised; masses not palpable. HEART: First and second heart sounds are normal; no edema. LUNGS:[ Respiratory rate increased, diminished breath sounds. ABDOMEN: Soft, some tenderness,, no guarding rigidity, liver spleen not palpable, no masses palpable. Left-sided colostomy bag-with liquid stool PSYCH: [Alert and oriented x3; mood and affect anxious. MUSCULOSKELETAL:No Clubbing/cyanosis;muscles-grossly intact INVESTIGATIONS, reviewed in the clinical context: 2D echocardiogram [December 21] EF 65 to 70%. Severe concentric hypertrophy. Moderate AI. And some calcification. December 22: Sodium 133 potassium 4.1 creatinine 0.4 December 21: Sodium 133 potassium 3.8 creatinine 0.36 albumin 1.6 December 20: White count 9.2 hemoglobin 9.7 sodium 133 potassium 2.9 creatinine 0.47 December 19: Troponin I 0.167, 0.174, 0.168 December 18: Sodium 131 potassium 3.3 December 17: White count 9.2 hemoglobin 13.2 sodium 129 potassium 3[address] scan abdomen [December 16]: Evidence of possibly complete bowel obstruction possibly December 16: White count 12.7 hemoglobin 11.9 December 15: White count 11 hemoglobin 11.4 potassium 3.6 creatinine 0.55 Abdominal wound culture: E. coli and alphahemolytic Streptococcus. December 09: White count 10.8 hemoglobin 10.9 platelets 254 sodium 135 potassium 3.8 BUN 20 creatinine 0.61 Chest x-ray film personally reviewed by me-hyperinflation Telemetry strip bedside monitor: Personally reviewed by me. Sinus rhythm CT scan abdomen pelvis: Moderate prominence of the stomach. Severe wall thickening of the gastric antrum. Distal colonic diverticulosis. Free air identified anterior to the bladder. Assessment and plan: -Acute sigmoid diverticulitis with perforation. Cultures growing E. coli and alphahemolytic Streptococcus: Worsening abdominal symptoms today.: Slow to respond Patient underwent sigmoid resection and formation of her colostomy on December [address] scan abdomen [December 16:] Possibly near complete bowel obstruction. NG tube reinserted: Slow improvement IV cefepime and IV Flagyl. -Anterior chest wall pain. Non-ST elevation OH. Type II. Troponin positive at 0.167 with no rise and fall. Telemetry. Cardiology following. 2D echo-pending. -Send hypertensive heart disease. Severe LVH on echo. -Severe hypokalemia: Replace Replace potassium -Secondary peritonitis from hollow viscus perforation IV cefepime and IV Flagyl. ID following -COPD and a current smoker DuoNeb 3 times daily. Singulair.. Breztri inhaler -Chronic nicotine dependence, cigarette smoker Nicotine patch -Hyperlipidemia Lipitor 20 mg a day -Severe protein calorie malnutrition. BMI 18.3. Peripheral nutrition -Chronic muscle spasm Baclofen as needed -Peptic ulcer disease PPI -Hypoglycemia from poor oral intake: Better -Peripheral nutrition -Essential hypertension. Better controlled Lopressor to 50 mg twice daily -Insomnia with hallucinations. Restoril. NG tube to suction. IV fluids. IV cefepime and IV Flagyl. NPO. Thank you Dr. Lentz Past Medical History Past Medical History: COPD, Hypertension, Rheumatoid Arthritis (RA) Additional Past Medical History / Comment(s): bleeding ulcer History of Any Multi-Drug Resistant Organisms: None Reported Past Surgical History: Tubal Ligation Additional Past Surgical History / Comment(s): Eye surgery (cataracts removed). Past Anesthesia/Blood Transfusion Reactions: No Reported Reaction Past Psychological History: No Psychological Hx Reported Smoking Status: Current every day smoker Past Alcohol Use History: Rare Past Drug Use History: None Reported
--- NOTE | 2023-12-22 19:33 | XR ---
EXAMINATION TYPE: XR chest 2V DATE OF EXAM: 12/22/2023 COMPARISON: 12/16/2023 HISTORY: 78 year-old female shortness of breath and pleural effusion TECHNIQUE: AP and lateral views FINDINGS: NG tube courses below the diaphragm. Heart upper limits of normal in size. Hyperinflation with relati ve upper lung lucencies. Right CVC tip not clearly seen beyond the cavoatrial junction region. There are [id number] bilateral pleural effusions with bibasilar opacity, similar to prior. IMPRESSION: COPD with ongoing [id number] bilateral pleural effusions with adjacent atelectasis and/or cons olidation.
[2023-12-22] MEDS: FUROSEMIDE 10 MG/ML 2 ML VIAL IV SCH (19:45)
[2023-12-23 00:14] LABS: Glucose,Whole Blood 125 mg/dL (70-110)
[2023-12-23] MEDS: ZINC OXIDE PASTE (Z-GUARD) 1 APPLIC TOPICAL PRN (02:21)
[2023-12-23 06:13] LABS: Glucose,Whole Blood 113 mg/dL (70-110)
[2023-12-23 08:02] LABS: African American GFR (CKD) >90 (>60 ml/min/1.73 sqM); Anion Gap 4 mmol/L; Blood Urea Nitrogen 20 mg/dL (7-17); Calcium 7.9 mg/dL (8.4-10.2); Carbon Dioxide 28 mmol/L (22-30); Chloride 104 mmol/L (98-107); Glucose 100 mg/dL (74-99); Non-African American GFR(CKD) >90 (>60 ml/min/1.73 sqM); Phosphorus 3.1 mg/dL (2.5-4.5); Potassium 3.8 mmol/L (3.5-5.1); Sodium 136 mmol/L (137-145)
[2023-12-23 08:22] LABS: Ionized Calcium 4.7 mg/dL (4.5-5.3)
[2023-12-23] MEDS: FUROSEMIDE 10 MG/ML 2 ML VIAL IV ONE (11:13)
--- NOTE | 2023-12-23 11:18 | P.PN ---
Subjective HISTORY OF PRESENT ILLNESS: This is a 78-year-old female with a past medical history significant for arthritis, hypertension, hyperlipidemia, nicotine dependence, carotid stenosis, and valvular heart disease. Patient follows in the office with Dr. Mabry. We have been asked to see the patient in consultation for ST changes on telemetry. Patient examined at the bedside. Patient is status post exploratory laparotomy, sigmoid colectomy, and end colostomy secondary to perforated sigmoid diverticulitis on December 08, 2023. The patient was doing well postoperatively. However, she developed abdominal distention, nausea, and decreased stool output from her ostomy. Patient had an NG tube reinserted and states she felt significantly better afterwards. At the time of examination, she has had no significant ostomy function. She denies having any chest pain or pressure. She denies any shortness of breath. All signs are stable. DIAGNOSTICS: - EKG reveals sinus mechanism with T wave inversions in V3V6 - Laboratory data: Troponin 0.167. Patient's troponins have been chronically elevated back to 2019 with troponin of 0.038. 0.123. 0.089. - Current home cardiac medications include Lipitor 20 mg daily, metoprolol tartrate 25 mg twice a day. - Most recent echocardiogram obtained in December 2022 revealed ejection fraction 60 to 65%, grade 2 diastolic function, mild LVH with LIO, moderate AR, mild to moderate MR, RVSP 28 mmHg 12/20/2023 Patient examined this morning at the bedside. Patient denies any chest pain or pressure. She denies shortness of breath. She remains n.p.o. with an NG tube to low intermittent suction. She denies any significant output from her ostomy. Troponin 0.136. 0.174. 0.168. 2D echo is currently pending. 12/21/2023 Patient examined this afternoon at the bedside. Patient denies any chest pain or pressure. She denies shortness of breath. She remains n.p.o. with an NG tube to low intermittent suction. Vital signs are stable. 2D echo remains pending. 12/22/2023 Patient examined this morning. Patient is sitting up in the chair. Patient denies any chest pain or pressure. She does report having some shortness of breath this morning which has since resolved. She states that she received a nebulizer treatment which improved her symptoms. She reports that she has been having output from her ostomy. She continues to have an NG tube to low intermittent suction. Echocardiogram completed revealing ejection fraction 65 to 70%, severe concentric LVH, moderate AI, mild to moderate MR bilateral pleural effusions 12/23/2023 Patient examined this morning at the bedside. Patient denies any chest pain or pressure. She denies any further episodes of shortness of breath. Chest x-ray reveals COPD with ongoing small to bilateral pleural effusions with adjacent atelectasis or consolidation. proBNP 3780. Case discussed yesterday with general surgery and maintenance IV fluids have been discontinued. Blood pressure slightly higher this morning with a reading of 180/74. Previous blood pressures in the [id number]. PHYSICAL EXAM: VITAL SIGNS: Reviewed. GENERAL: Well-developed in no acute distress. HEENT: Head is normocephalic. Pupils are equal, round. Sclerae anicteric. Mucous membranes of the mouth are moist. Neck supple. No JVD or thyromegaly LUNGS: Respirations even and unlabored. Lungs essentially clear to auscultation bilaterally. HEART: Regular rate and rhythm. S1 and S2 heard. Systolic murmur noted. ABDOMEN: Soft. Ostomy present. EXTREMITIES: Normal range of motion. No clubbing or cyanosis. Peripheral pulses intact. No lower extremity edema NEUROLOGIC: Awake and alert. Oriented x 3. ASSESSMENT: Perforated sigmoid diverticulitis, status post exploratory laparotomy, sigmoid colectomy, and end colostomy Postoperative small bowel obstruction versus ileus Elevated troponin, flat, suspect type II CO secondary to above Bilateral pleural effusions Severe LVH History of hypertension History of hyperlipidemia Carotid stenosis History of arthritis Nicotine dependence Valvular heart disease PLAN: Continue postoperative management per general surgery Case discussed yesterday with general surgery and maintenance IV fluids have been discontinued. Patient denies any further episodes of shortness of breath. Patient is currently stable from a cardiac standpoint We will sign off. Please reconsult if needed. Nurse practitioner note has been reviewed by physician. Signing provider agrees with the documented findings, assessment, and plan of care documented by EARRINGS FABRICATOR as a scribe. Objective - Vital Signs Vital signs: Vital Signs Temp 97.9 F 12/23/23 07:03 Pulse 77 12/23/23 07:03 Resp 19 12/23/23 07:03 BP 180/74 12/23/23 07:03 Pulse Ox 98 12/23/23 07:03 FiO2 30 12/09/23 10:00 Intake & Output 12/22/23 12/23/23 12/23/23 18:59 06:59 18:59 Output Total 200 300 Balance -200 -300 Weight 42.3 kg Output: Gastric Drainage 100 Urine 300 Stool 100 Other: Voiding Method Bedpan Diaper # Voids 1 5 1 ABP, PAP, CO, CI - Last Documented Arterial Blood Pressure 119/92 - Labs CBC & Chem 7: 12/20/23 05:34 12/23/23 06:34 Labs: Abnormal Lab Results - Last 24 Hours (Table) 12/22/23 12/23/23 12/23/23 Range/Units 16:55 00:11 06:11 Sodium (137-145) mmol/L BUN (7-17) mg/dL Creatinine (0.52-1.04) mg/dL Glucose (74-99) mg/dL POC Glucose (mg/dL) 128 H 125 H 113 H (70-110) mg/dL Calcium (8.4-10.2) mg/dL 12/23/23 Range/Units 06:34 Sodium 136 L (137-145) mmol/L BUN 20 H (7-17) mg/dL Creatinine 0.47 L (0.52-1.04) mg/dL Glucose 100 H (74-99) mg/dL POC Glucose (mg/dL) (70-110) mg/dL Calcium 7.9 L (8.4-10.2) mg/dL
[2023-12-23 11:33] LABS: Glucose,Whole Blood 109 mg/dL (70-110)
--- NOTE | 2023-12-23 13:15 | P.PN ---
Subjective Progress Note Date: 12/23/23 CHIEF COMPLAINT: Perforated sigmoid diverticulitis HISTORY OF PRESENT ILLNESS: Patient is postop day #11 status post exploratory laparotomy, sigmoid colectomy and end colostomy. Patient lying in bed comfo rtably. Reports her pain is controlled. She is slowly having more output through her ostomy. Pain is controlled. Denies any nausea. NG tube output bilious. IV fluids discontinued due to fluid overload. Patient seen and examined with Dr. Conner PHYSICAL EXAM: VITAL SIGNS: Reviewed. GENERAL: Well-developed in no acute distress. ABDOMEN: Nondistended. incision clean dry intact. James in place. Stool present in ostomy bag NEUROLOGIC: Alert and oriented. Cranial nerves II through XII grossly intact. ASSESSMENT: 1. Perforated sigmoid diverticulitis status post exploratory laparotomy, sigmoid colectomy with end colostomy 2. Small bowel obstruction versus ileus after recent surgery 3. Urinary retention resolved 4. Hypokalemia improved PLAN: -Continue NG tube for decompression -Keep patient n.p.o. -Continue TPN for nutrition support -Continue antibiotics -Encourage patient to use incentive spirometer -Encourage patient to increase activity level. Continue to work with PT OT. Patient to to go to [facility] when discharged -Tentatively plan for small bowel series on Tuesday if patient without full bowel function -GI prophylaxis Protonix DVT prophylaxis subcu heparin Physician Front End Java Developer note has been reviewed by physician. Signing provider agrees with the documented findings, assessment, and plan of care. Objective - Vital Signs Vital signs: Vital Signs Temp 97.9 F 12/23/23 07:03 Pulse 77 12/23/23 07:03 Resp 19 12/23/23 07:03 BP 180/74 12/23/23 07:03 Pulse Ox 98 12/23/23 07:03 FiO2 30 12/09/23 10:00 Intake & Output 12/22/23 12/23/23 12/23/23 18:59 06:59 18:59 Intake Total 1031 Output Total 200 300 Balance -200 -300 1031 Weight 42.3 kg 42.3 kg Intake: Intake, IV Titration 1031 Amount Mvi, Adult No.4 with Vit 1031 K 10 ml Trace (Conc-1Ml/ Dose) 1 ml Potassium Chloride 40 meq In Amino Acid 5%-D20w+Lytes*E* 1, 000 ml @ 52 mls/hr IV . [id number] [facility] Rx#:[id number] Output: Gastric Drainage 100 Urine 300 Stool 100 Other: Voiding Method Bedpan Bedside Commode Diaper # Voids 1 5 1 ABP, PAP, CO, CI - Last Documented Arterial Blood Pressure 119/92 - Labs CBC & Chem 7: 12/20/23 05:34 12/23/23 06:34 Labs: Abnormal Lab Results - Last 24 Hours (Table) 12/22/23 12/23/23 12/23/23 Range/Units 16:55 00:11 06:11 Sodium (137-145) mmol/L BUN (7-17) mg/dL Creatinine (0.52-1.04) mg/dL Glucose (74-99) mg/dL POC Glucose (mg/dL) 128 H 125 H 113 H (70-110) mg/dL Calcium (8.4-10.2) mg/dL 12/23/23 Range/Units 06:34 Sodium 136 L (137-145) mmol/L BUN 20 H (7-17) mg/dL Creatinine 0.47 L (0.52-1.04) mg/dL Glucose 100 H (74-99) mg/dL POC Glucose (mg/dL) (70-110) mg/dL Calcium 7.9 L (8.4-10.2) mg/dL
--- NOTE | 2023-12-23 13:54 | P.PN ---
Subjective Progress Note Date: 12/23/23 The patient is seen today December 19, 2023 and follow-up on the regular medical floor. She is currently sitting up in bed. Awake and alert in no acute distress. She is maintaining O2 saturations in the 90s on room air. Nasogastric tube remains in place. Still having some mild abdominal discomfort. Ostomy with minimal output. Mild bloating. CT scan of the abdomen from yesterday revealed redemonstrated and overall stable appearance of findings concerning for small bowel obstruction with dilated small bowel loops and suspected transition point within the lower abdomen. No contrast is visualized extending into the colon. No plans for surgery at this point. Continuing conservative management per surgical services. Plan is for PICC line placement and to be transitioned to TPN. White count 11.5. Hemoglobin 10.9. Platelets 383. Sodium 133. Potassium 3.1. Bicarb 30. BUN 13. Creatinine 0.59. Glucose 102. Troponin 0.167, 0.174. Cardiology has been consulted. The patient is seen today December 20, 2023 in follow-up on the regular medical floor. She is awake and alert in no acute distress. She is sitting up in bed. She is maintaining O2 saturations in the 90s on room air. Nasogastric tube remains in place. She remains nothing by mouth. Abdominal x-ray today reveals gastric tube in appropriate position. No dilated loops of bowel identified. TPN at 30 MLS per hour for nutritional support. She remains on Flagyl and cefepime. White count 9.2. Hemoglobin 9.7. Platelets 322. Sodium 133. Potassium 2.9. Bicarb 27. BUN 12. Creatinine 0.47. Glucose 125. The patient is seen today December 21, 2023 in follow-up on the regular medical floor. She is sitting up in bed. Awake and alert in no acute distress. Nasogastric tube remains in place. She denies any worsening abdominal discomfort. Ostomy is functioning. She remains on TPN at 30 MLS per hour for nutritional support. Continued on Flagyl and cefepime. Continued on bronchodilators. NicoDerm patch in place. Heparin for DVT prophylaxis. Sodium 133. Potassium 3.8. Bicarb 23. BUN 15. Creatinine 0.36. Glucose 95. The patient is seen today December 22, 2023 and follow-up on the regular medical floor. She is currently awake and alert in no acute distress. Resting comfortably in bed. Continues to maintain good O2 saturation in the 90s on room air. She is afebrile. Hemodynamically stable. Echocardiogram reveals preserved left ventricular systolic function with ejection fraction of 65%. Sodium 133. Potassium 4.1. Bicarb 25. BUN 16. Creatinine 0.40. Glucose 84. Nasogastric tube remains in place. She remains NPO. She is receiving TPN for nutritional support. She is working well with the incentive spirometer. The patient is seen today December 23, 2023 in follow-up on the regular medical floor. She is currently sitting up in bed. Awake and alert in no acute distres s. Feeling stronger each day. She is maintaining O2 saturations in the 90s on room air. Chest x-ray shows evidence of COPD with ongoing small to moderate bilateral pleural effusions with adjacent atelectasis. She is encouraged regarding the increased use of the incentive spirometer. Sodium 136. Potassium 3.8. Bicarb 28. BUN 20. Creatinine 0.47. Glucose 100. Nasogastric tube remains in place. She is being nourished with TPN currently at 52 MLS per hour. She remains on bronchodilators. Antibiotics in the form of Flagyl and cefepime. Objective - Vital Signs Vital signs: Vital Signs Temp 97.9 F 12/23/23 07:03 Pulse 76 12/23/23 12:27 Resp 19 12/23/23 07:03 BP 180/74 12/23/23 07:03 Pulse Ox 98 12/23/23 07:03 FiO2 30 12/09/23 10:00 Intake & Output 12/22/23 12/23/23 12/23/23 18:59 06:59 18:59 Intake Total 1031 Output Total 200 300 100 Balance -200 -300 931 Weight 42.3 kg 42.3 kg Intake: Intake, IV Titration 1031 Amount Mvi, Adult No.4 with Vit 1031 K 10 ml Trace (Conc-1Ml/ Dose) 1 ml Potassium Chloride 40 meq In Amino Acid 5%-D20w+Lytes*E* 1, 000 ml @ 52 mls/hr IV . [id number] [facility] Rx#:[id number] Output: Gastric Drainage 100 Urine 300 Stool 100 100 Other: Voiding Method Bedpan Bedside Commode Diaper # Voids 1 5 1 ABP, PAP, CO, CI - Last Documented Arterial Blood Pressure 119/92 - Exam GENERAL EXAM: Awake, alert, pleasant 78-year-old female, resting in bed, on room air, in no apparent distress. HEAD: Normocephalic. EYES: Sluggish reaction of pupils, equal size. NOSE: Clear with pink turbinates. Nasogastric tube secured in place. THROAT: Nasogastric tube secured in place. No erythema or exudates. NECK: No masses, no JVD. CHEST: No chest wall deformity. LUNGS: Equal air entry with faint crackles in the posterior bases. CVS: S1 and S2 normal with no audible murmur, regular rhythm. ABDOMEN: Abdominal dressing dry and intact. Left abdominal ostomy present. SPINE: No scoliosis or deformity SKIN: No rashes CENTRAL NERVOUS SYSTEM: Sedated, tone is normal in all 4 extremities. EXTREMITIES: There is no peripheral edema. No clubbing, no cyanosis. Peripheral pulses are intact. - Labs CBC & Chem 7: 12/20/23 05:34 12/23/23 06:34 Labs: Abnormal Lab Results - Last 24 Hours (Table) 12/22/23 12/23/23 12/23/23 Range/Units 16:55 00:11 06:11 Sodium (137-145) mmol/L BUN (7-17) mg/dL Creatinine (0.52-1.04) mg/dL Glucose (74-99) mg/dL POC Glucose (mg/dL) 128 H 125 H 113 H (70-110) mg/dL Calcium (8.4-10.2) mg/dL 12/23/23 Range/Units 06:34 Sodium 136 L (137-145) mmol/L BUN 20 H (7-17) mg/dL Creatinine 0.47 L (0.52-1.04) mg/dL Glucose 100 H (74-99) mg/dL POC Glucose (mg/dL) (70-110) mg/dL Calcium 7.9 L (8.4-10.2) mg/dL Assessment and Plan Assessment: Severe acute abdominal pain secondary to perforated sigmoid diverticulitis. Status post exploratory laparotomy, sigmoid colectomy, end colostomy on December 08, 2023. Most recent CT scan of the abdomen reveals small bowel obstruction. Plan is for conservative management if possible. Nasogastric tube remains in place. Continued on TPN via PICC line Acute hypoxemic respiratory failure secondary to above requiring prolonged ventilation postoperatively, recovered and on room air Severe protein calorie malnutrition with a BMI of less than 20 kg/m History of gastric ulcers and esophagitis History of rheumatoid arthritis History of chronic obstructive pulmonary disease History of chronic tobacco dependence History of hypertension History of hyperlipidemia History of gastroesophageal reflux disease Plan: The patient was seen and evaluated Chest x-ray, labs and medications reviewed Give Lasix 20 mg IVP x 1 Encourage increased use of the incentive spirometer TPN for nutritional support Nasogastric tube remains in place Continue the current treatment plan Increase her activity as tolerated We will continue to follow I have personally seen and examined the patient, performed the documentation and the assessment and plan as written. Number of minutes spent on the visit: 10.
--- NOTE | 2023-12-23 14:51 | P.PN ---
Subjective Progress Note Date: 12/23/23 Principal diagnosis: Reason for follow-up is perforated diverticulitis and abscess Patient is a 78-year-old female with a past medical history significant for COPD hypertension rheumatoid arthritis presenting to the ER for evaluation of epigastric abdominal pain, patient did have a CT abdominal pelvis concerning for free subsequently taken to the OR status post laparotomy with evidence of perforated sigmoid diverticulitis status post sigmoid colectomy and end colostomy. On today's evaluation that is 12/23/2023, the patient continues to be afebrile, the patient is on room air and breathing comfortably, the Pt denies having any chest pain did have occasional cough, the patient abdominal pain has decreased in intensity no vomiting still have the NG and I did have output in colostomy. Patient did have a creatinine 0.47 white count of 9.28 as of 12/20/2023 Objective - Vital Signs Vital signs: Vital Signs Temp 97.9 F 12/23/23 07:03 Pulse 76 12/23/23 12:27 Resp 19 12/23/23 07:03 BP 180/74 12/23/23 07:03 Pulse Ox 98 12/23/23 07:03 FiO2 30 12/09/23 10:00 Intake & Output 12/22/23 12/23/23 12/23/23 18:59 06:59 18:59 Intake Total 1031 Output Total 200 300 100 Balance -200 -300 931 Weight 42.3 kg 42.3 kg Intake: Intake, IV Titration 1031 Amount Mvi, Adult No.4 with Vit 1031 K 10 ml Trace (Conc-1Ml/ Dose) 1 ml Potassium Chloride 40 meq In Amino Acid 5%-D20w+Lytes*E* 1, 000 ml @ 52 mls/hr IV . [id number] [facility] Rx#:[id number] Output: Gastric Drainage 100 Urine 300 Stool 100 100 Other: Voiding Method Bedpan Bedside Commode Diaper # Voids 1 5 1 ABP, PAP, CO, CI - Last Documented Arterial Blood Pressure 119/92 - Exam GENERAL DESCRIPTION: An elderly female lying in bed in no distress RESPIRATORY SYSTEM: Unlabored breathing , decreased breath sounds at bases HEART: S1 S2 regular rate and rhythm , ABDOMEN: Soft , mild tenderness EXTREMITIES: No edema feet - Labs CBC & Chem 7: 12/20/23 05:34 12/23/23 06:34 Labs: Abnormal Lab Results - Last 24 Hours (Table) 12/22/23 12/23/23 12/23/23 Range/Units 16:55 00:11 06:11 Sodium (137-145) mmol/L BUN (7-17) mg/dL Creatinine (0.52-1.04) mg/dL Glucose (74-99) mg/dL POC Glucose (mg/dL) 128 H 125 H 113 H (70-110) mg/dL Calcium (8.4-10.2) mg/dL 12/23/23 Range/Units 06:34 Sodium 136 L (137-145) mmol/L BUN 20 H (7-17) mg/dL Creatinine 0.47 L (0.52-1.04) mg/dL Glucose 100 H (74-99) mg/dL POC Glucose (mg/dL) (70-110) mg/dL Calcium 7.9 L (8.4-10.2) mg/dL Assessment and Plan (1) Intra-abdominal abscess Current Visit: Yes Status: Acute Code(s): K65.1 - PERITONEAL ABSCESS SNOMED Code(s): 05593413 (2) Allergy to multiple antibiotics Current Visit: Yes Status: Acute Code(s): Z88.1 - ALLERGY STATUS TO OTHER ANTIBIOTIC AGENTS SNOMED Code(s): 717036341 (3) Perforated viscus Current Visit: Yes Status: Acute Code(s): R19.8 - OTH SYMPTOMS AND SIGNS INVOLVING THE DGSTV SYS AND ABDOMEN SNOMED Code(s): 513909627 Plan: 1patient presented to hospital with abdominal pain has been diagnosed with a perforated viscus in this patient was status post laparotomy with evidence of perforated sigmoid diverticulitis status post laparotomy sigmoid colectomy and end colostomy for likely organism need to cover will be enteric gram-negative both aerobes and anaerobes 2-patient did have repeat CT has with evidence of partial versus complete bowel obstruction NG has been placed which the patient has been tolerating 3-the patient remains to be afebrile, white count has been normal we will repeat a CBC with a.m. lab continue with cefepime and Flagyl and monitor clinical course closely Dictation was produced using [employer] dictation software. please excuse any grammatical, word or spelling errors. Time with Patient: Less than 30
--- NOTE | 2023-12-23 15:42 | P.PN ---
Progress Note - Text Progress Note Date: 12/23/23 - Chief Complaint Abdominal pain - History of Present Illness This is a pleasant 78-year-old patient, chronic stable medical conditions include COPD, hypertension, rheumatoid arthritis. Patient is active smoker. Patient with 3 days been having increasing abdominal pain. Presented to the ER. CT scan showed free air. Patient was taken to the OR yesterday by Dr. Lentz. Underwent exploratory laparotomy. Found to have a perforated sigmoid d iverticulitis. Sigmoid colectomy with end colostomy was done. Today in the ICU: Extubated earlier today. 2 L nasal cannula. Has NG tube to suction. No output in the colostomy bag. Son at the bedside. Pain at the surgical site. December 10: Patient moved out of the ICU. NG tube to intermittent suction. Did not sleep well yesterday. States when she tries to close her eyes she starts hallucinating. Given one-time dose of Haldol. Having significant pain at the operative site. Pain medications per surgical team. No output through colostomy bag. Discussed with nurse. Sons at the bedside. Also added Nicorette gum as needed. Hypoglycemia: Change IV fluids to D5.45. Patient on IV cefepime and IV Flagyl. December 11: NG tube in place. Plan for it to be discontinued this afternoon. Very little output from the colostomy bag. Did sleep her last night.'s some hallucinations. Discussed with the patient's son. Try to cut back on IV narcotics balance between pain control and side effects. December 12: NG tube was discontinued yesterday. Remains NPO per surgery. No output from the colostomy bag. Did not sleep well last night. Chewing gum ordered. Remains on IV cefepime. IV Flagyl. For blood pressure start Catapres patch 0.2. December 13: Patient be started on clear liquids by surgery. Some stool from the colostomy bag. Pain better. Pain switched over to oral pain medications. Abdominal wound cultures growing E. coli and alphahemolytic Streptococcus. Remains on IV cefepime and IV Flagyl. Abdominal pain better. December 14: Patient having dark stool output through the colostomy bag. Did sit up in a chair. On full liquid diet. Patient requested to have a home dose of Percocet as opposed to [place]. Ordered. Blood pressure running high. Increase Lopressor to 50 mg twice daily. December 15: Patient advance to low fiber diet today. Eating some. Abdominal pain much better. Colostomy bag working. green end worker looking into discharge planning. December 16: Patient complaining of increasing abdominal pain. More distention. Some stool from the colostomy bag. Patient made NPO. On antibiotics. CT scan abdomen ordered. December 17: Continues to have abdominal pain. NG tube to suction. Some stool in the colostomy bag. CT scan from yesterday showed partial versus complete bowel obstruction. December 18: Abdominal pain present. NG tube to suction. Some stool in the colostomy bag. On IV cefepime and IV Flagyl. Tired. December 19: Improvement in abdominal pain. No secondary perforation. Was felt to be partial obstruction. NG tube remains in place. Remains NPO. Patient had some chest pain this afternoon. Troponins were ordered. Cardiology was ordered. Telemetry. December 20: Patient seen by cardiology. [place] to be type II NH. 2D echo. No IV heparin. Patient having abdominal pain. NG tube remains in place. NPO. Patient was started IV peripheral nutrition. December 21: Feeling better. Decreased pain. Decreased distention. Some bowel movement in the colostomy bag. NG tube to suction. Getting peripheral nutrition. December 22: Reclining in bed. Decreased abdominal pain. Stool in the colostomy bag. NG tube to suction. Getting PPN. Fluid overload clinically and on chest x-ray. Give IV Lasix 20 mg x 2 doses December 23: Putting stool out of the colostomy bag. Decreased abdominal pain. NG tube to suction. Getting PPN. Abdominal pain is much better. Received IV Lasix x 2 doses yesterday. Edema and breathing much better. On antibiotics. Up in a recliner Active Medications Albuterol Sulfate (Albuterol Nebulized 2.5 Mg/3 Ml) 2.5 mg INHALATION RT-Q4H PRN PRN Reason: Shortness Of Breath Albuterol/Ipratropium (Ipratropium-Albuterol 3 Ml Neb) 3 ml INHALATION RT-Q2H PRN PRN Reason: Shortness Of Breath Or Wheezing Albuterol/Ipratropium (Ipratropium-Albuterol 3 Ml Neb) 3 ml INHALATION RT-QID [facility] Last Admin: 12/23/23 12:17 Dose: 3 ml Atorvastatin Calcium (Atorvastatin 20 Mg Tab) 20 mg PO DAILY [facility] Last Admin: 12/23/23 07:51 Dose: 20 mg Baclofen (Baclofen 10 Mg Tab) 10 mg PO HS ANN Last Admin: 12/22/23 19:45 Dose: 10 mg Benzocaine (Benzocaine [place] 1 Can) 1 spray MUCOUS MEM QID PRN; Protocol PRN Reason: Mouth Irritation Last Admin: 12/10/23 00:20 Dose: 1 spray Benzocaine/Menthol (Benzocaine/Menthol Lozeng 1 Each Lozenge) 1 each MUCOUS MEM Q4HR PRN PRN Reason: Sore Throat Last Admin: 12/22/23 17:06 Dose: 1 each Budesonide (Budesonide 1 Mg/2 Ml Nebu) 1 mg INHALATION RT-BID ANN Last Admin: 12/23/23 09:20 Dose: Not Given Clonidine HCl (Clonidine 0.2 Mg/24hr Patch) 1 patch TRANSDERM Q7D ANN Last Admin: 12/19/23 17:38 Dose: 1 patch Al Hydroxide/Mg Hydroxide 30 ml/ Diphenhydramine HCl 75 mg/Lidocaine HCl 30 ml 0 ml PO TID ANN Last Admin: 12/23/23 07:52 Dose: 30 ml Dextrose/Water (Dextrose 50% Syringe 50 Ml) 25 ml IVP PER PROTOCOL PRN; Protocol PRN Reason: Hypoglycemia Last Admin: 12/17/23 19:34 Dose: 25 ml Dextrose/Water (Dextrose 50% Syringe 50 Ml) 50 ml IVP PER PROTOCOL PRN; Protocol PRN Reason: Hypoglycemia Formoterol Fumarate (Formoterol Fumarate 20 Mcg/2 Ml Nebu) 20 mcg INHALATION RT-BID [facility] Last Admin: 12/23/23 09:20 Dose: Not Given Heparin Sodium (Porcine) (Heparin Sodium,Porcine 5,000 Unit/Ml 1 Ml Vial) 5,000 unit SQ Q8HR ANN Last Admin: 12/23/23 07:50 Dose: 5,000 unit Hydroxychloroquine Sulfate (Hydroxychloroquine Sulfate 200 Mg Tab) 200 mg PO BID ANN Last Admin: 12/23/23 07:51 Dose: 200 mg Metronidazole 500 mg/ IV (Solution) 100 mls @ 100 mls/hr IVPB Q8HR ANN; Protocol Last Admin: 12/23/23 07:50 Dose: 100 mls/hr Fat Emulsion Intravenous (Lipids 20%) 250 mls @ 20.833 mls/hr IV MoTh@1400 ANN Last Admin: 12/22/23 13:24 Dose: 20.833 mls/hr Cefepime HCl 2 gm/ Sodium (Chloride) 100 mls @ 25 mls/hr IVPB Q8HR [facility]; Protocol Last Admin: 12/23/23 07:50 Dose: 25 mls/hr Parenteral Vitamin Supplement 10 ml/ Zinc/Copper/Manganese/Selenium 1 ml/ Potassium Chloride 40 meq/ Amino Ac/Electrol/Dextrose/Calcium 1,031 mls @ 52 mls/hr IV .[id number] [facility] Stop: 12/24/23 06:59 Last Admin: 12/23/23 11:15 Dose: 52 mls/hr Parenteral Vitamin Supplement 10 ml/ Zinc/Copper/Manganese/Selenium 1 ml/ Potassium Chloride 40 meq/ Sodium Chloride 20 meq/ Amino Ac/Electrol/Dextrose/Calcium 1,036 mls @ 52 mls/hr IV .[id number] [facility] Metoprolol Tartrate (Metoprolol Tartrate 5 Mg/5 Ml Vial) 5 mg IVP Q6HR PRN PRN Reason: Blood Pressure - High Last Admin: 12/16/23 21:54 Dose: 5 mg Metoprolol Tartrate (Metoprolol Tartrate 50 Mg Tab) 50 mg PO BID [facility] Last Admin: 12/23/23 07:51 Dose: 50 mg Miscellaneous Information (Magnesium Replacement Protocol 1 Each Misc) 1 each MISCELLANE DAILY PRN; Protocol PRN Reason: Per Protocol Miscellaneous Information (Potassium Replacement Protocol 1 Each Misc) 1 each MISCELLANE DAILY PRN; Protocol PRN Reason: Per Protocol Montelukast Sodium (Montelukast 10 Mg Tab) 10 mg PO DAILY [facility] Last Admin: 12/23/23 07:50 Dose: 10 mg Morphine Sulfate (Morphine Sulfate 4 Mg/Ml Syringe) 4 mg IVP Q3HR PRN PRN Reason: Pain Last Admin: 12/23/23 11:13 Dose: 4 mg Naloxone HCl (Naloxone 0.4 Mg/Ml 1 Ml Vial) 0.2 mg IV Q2M PRN PRN Reason: Opioid Reversal Nicotine (Nicotine 21mg/24hr Patch) 1 patch TRANSDERM DAILY [facility] Last Admin: 12/23/23 07:51 Dose: 1 patch Nicotine Polacrilex (Nicotine Gum (Polacrilex) 2 Mg Gum) 2 mg BUCCAL Q4HR PRN PRN Reason: Nicotine Cravings Oxycodone/Acetaminophen (Oxycodone-Apap 7.5-325mg 1 Each Tab) 1 each PO Q6H PRN PRN Reason: Pain Last Admin: 12/21/23 15:40 Dose: 1 each Pantoprazole Sodium (Pantoprazole Sodium 40 Mg Granule Pkt) 40 mg PO AC-BID ANN Last Admin: 12/23/23 07:51 Dose: 40 mg Petrolatum (Zinc Oxide Paste (Z-Guard) 1 Applic) 1 applic TOPICAL BID PRN; Protocol PRN Reason: Wound Healing Last Admin: 12/23/23 02:21 Dose: 1 applic Temazepam (Temazepam 15 Mg Cap) 15 mg PO HS PRN PRN Reason: Insomnia Last Admin: 12/22/23 19:45 Dose: 15 mg Social history: Patient been smoking for many years. Was up to 4 packs a day. Now down to a pack a day. Works at [employer]. Lives with her son. Physical examination: VITAL SIGNS: 97.9, 77, 16, 165/89, 98% room air GENERAL: Up in a recliner EYES: Pupils equal. Conjunctiva normal HEENT: External appearance of nose and ears normal, oral cavity grossly normal. Diminished hearing in the right ear. NG tube to suction NECK: JVD not raised; masses not palpable. HEART: First and second heart sounds are normal; no edema. LUNGS:[ Respiratory rate increased, diminished breath sounds. ABDOMEN: Soft, mild tenderness,, no guarding rigidity, liver spleen not palpable, no masses palpable. Left-sided colostomy bag-with soft brown stool PSYCH: [Alert and oriented x3; mood and affect anxious. MUSCULOSKELETAL:No Clubbing/cyanosis;muscles-grossly intact INVESTIGATIONS, reviewed in the clinical context: December 23: Sodium 136 potassium 3.8 BUN 20 creatinine 0.47 2D echocardiogram [December 21] EF 65 to 70%. Severe concentric hypertrophy. Moderate AI. And some calcification. December 22: Sodium 133 potassium 4.1 creatinine 0.4 December 21: Sodium 133 potassium 3.8 creatinine 0.36 albumin 1.6 December 20: White count 9.2 hemoglobin 9.7 sodium 133 potassium 2.9 creatinine 0.47 December 19: Troponin I 0.167, 0.174, 0.168 December 18: Sodium 131 potassium 3.3 December 17: White count 9.2 hemoglobin 13.2 sodium 129 potassium 3.[address] scan abdomen [December 16]: Evidence of possibly complete bowel obstruction possibly December 16: White count 12.7 hemoglobin 11.9 December 15: White count 11 hemoglobin 11.4 potassium 3.6 creatinine 0.55 Abdominal wound culture: E. coli and alphahemolytic Streptococcus. December 09: White count 10.8 hemoglobin 10.9 platelets 254 sodium 135 potassium 3.8 BUN 20 creatinine 0.61 Chest x-ray film personally reviewed by me-hyperinflation Telemetry strip bedside monitor: Personally reviewed by me. Sinus rhythm CT scan abdomen pelvis: Moderate prominence of the stomach. Severe wall thickening of the gastric antrum. Distal colonic diverticulosis. Free air identified anterior to the bladder. Assessment and plan: -Acute sigmoid diverticulitis with perforation. Cultures growing E. coli and alphahemolytic Streptococcus: Worsening abdominal symptoms today.: Slow to respond Patient underwent sigmoid resection and formation of her colostomy on December [address] scan abdomen [December 16:] Possibly near complete bowel obstruction. NG tube with suction: Slow improvement IV cefepime and IV Flagyl. NPO. Putting out some brown stool in the colostomy bag. -Anterior chest wall pain. Non-ST elevation [place]. Type II. Troponin positive at 0.167 with no rise and fall. Telemetry. Cardiology following. - hypertensive heart disease. Severe LVH on echo. -Severe hypokalemia: Replace Replace potassium -Secondary peritonitis from hollow viscus perforation IV cefepime and IV Flagyl. ID following -COPD and a current smoker DuoNeb 3 times daily. Singulair.. Breztri inhaler -Chronic nicotine dependence, cigarette smoker Nicotine patch -Hyperlipidemia Lipitor 20 mg a day -Severe protein calorie malnutrition. BMI 18.3. Peripheral nutrition -Chronic muscle spasm Baclofen as needed -Peptic ulcer disease PPI -Hypoglycemia from poor oral intake: Better -Peripheral nutrition -Essential hypertension. Better controlled Lopressor to 50 mg twice daily -Insomnia with hallucinations. Restoril. NG tube to suction. IV fluids. IV cefepime and IV Flagyl. NPO. Discussed with patient Thank you Dr. Lentz Past Medical History Past Medical History: COPD, Hypertension, Rheumatoid Arthritis (RA) Additional Past Medical History / Comment(s): bleeding ulcer History of Any Multi-Drug Resistant Organisms: None Reported Past Surgical History: Tubal Ligation Additional Past Surgical History / Comment(s): Eye surgery (cataracts removed). Past Anesthesia/Blood Transfusion Reactions: No Reported Reaction Past Psychological History: No Psychological Hx Reported Smoking Status: Current every day smoker Past Alcohol Use History: Rare Past Drug Use History: None Reported
[2023-12-23 17:02] LABS: Glucose,Whole Blood 104 mg/dL (70-110)
[2023-12-23 20:38] LABS: Glucose,Whole Blood 123 mg/dL (70-110)
[2023-12-24 00:35] LABS: Glucose,Whole Blood 138 mg/dL (70-110)
[2023-12-24] MEDS: MVI, ADULT NO.4 WITH VIT K 10 ML, TRACE (CONC-1ML/DOSE) 1 ML, POTASSIUM CHLORIDE 40 MEQ... IV SCH (05:52)
[2023-12-24 06:10] LABS: Glucose,Whole Blood 104 mg/dL (70-110)
[2023-12-24 06:44] LABS: Potassium 3.3 mmol/L (3.5-5.1)
[2023-12-24 06:47] LABS: African American GFR (CKD) >90 (>60 ml/min/1.73 sqM); Anion Gap -1 mmol/L; Blood Urea Nitrogen 22 mg/dL (7-17); C Reactive Protein 2.1 mg/dL (<1.0); Calcium 7.7 mg/dL (8.4-10.2); Carbon Dioxide 33 mmol/L (22-30); Chloride 101 mmol/L (98-107); Glucose 85 mg/dL (74-99); Magnesium 1.9 mg/dL (1.6-2.3); Non-African American GFR(CKD) >90 (>60 ml/min/1.73 sqM); Phosphorus 2.8 mg/dL (2.5-4.5); Sodium 133 mmol/L (137-145)
[2023-12-24] MEDS ORDERED: Potassium Replacement Protocol 1 EACH MISC MISCELLANE PRN (10:14)
[2023-12-24 10:27] LABS: Basophils # (A) 0.08 X 10*3/uL (0.00-0.10); Basophils % (A) 1.1 %; Eosinophils # (A) 0.04 X 10*3/uL (0.04-0.35); Eosinophils % (A) 0.6 %; HGB 10.1 g/dL (12.0-15.0); Lymphocytes # (A) 0.83 X 10*3/uL (0.90-5.00); Lymphocytes % (A) 11.5 %; MCH 31.6 pg (27.0-32.0); MCHC 32.6 g/dL (32.0-37.0); MCV 96.9 FL (80.0-97.0); Mean Platelet Volume 10.5 FL (9.5-12.2); Monocytes # (A) 0.71 X 10*3/uL (0.20-1.00); Monocytes % (A) 9.8 %; NRBC Per 100 WBC 0 X 10*3/uL (0.00-0.01); Neutrophils # (A) 5.48 X 10*3/uL (1.80-7.70); Neutrophils % (A) 75.9 %; Platelet Count 301 X 10*3/uL (140-440); RDW 14.2 % (11.5-14.5); WBC 7.22 X 10*3/uL (4.50-10.00)
[2023-12-24] MEDS: POTASSIUM BICARBONATE/CIT AC 20 MEQ TABLET.EFF NG-TUBE SCH (11:27)
[2023-12-24 11:44] LABS: Glucose,Whole Blood 125 mg/dL (70-110)
--- NOTE | 2023-12-24 12:04 | P.PN ---
Subjective Progress Note Date: 12/24/23 Principal diagnosis: Reason for follow-up is perforated diverticulitis and abscess Patient is a 78-year-old female with a past medical history significant for COPD hypertension rheumatoid arthritis presenting to the ER for evaluation of epigastric abdominal pain, patient did have a CT abdominal pelvis concerning for free subsequently taken to the OR status post laparotomy with evidence of perforated sigmoid diverticulitis status post sigmoid colectomy and end colostomy. On today's evaluation that is 12/24/2023, Patient is afebrile patient is currently on room air and denies having any shortness of breath, the patient denies any chest pain however has been complaining of a cough and is bringing up some sputum, the patient denies any nausea vomiting patient still have the NG in, abdominal pain has decreased in intensity and did have output in the colostomy. Patient white count is 7.22, creatinine 0.42 Objective - Vital Signs Vital signs: Vital Signs Temp 98.3 F 12/24/23 06:57 Pulse 67 12/24/23 06:57 Resp 16 12/24/23 06:57 BP 152/78 12/24/23 06:57 Pulse Ox 97 12/24/23 06:57 FiO2 30 12/09/23 10:00 Intake & Output 12/23/23 12/24/23 12/24/23 18:59 06:59 18:59 Intake Total 1031 Output Total 100 Balance 931 Weight 42.3 kg 36 kg Intake: Intake, IV Titration 1031 Amount Mvi, Adult No.4 with Vit 1031 K 10 ml Trace (Conc-1Ml/ Dose) 1 ml Potassium Chloride 40 meq In Amino Acid 5%-D20w+Lytes*E* 1, 000 ml @ 52 mls/hr IV . [id number] [facility] Rx#:[id number] Output: Stool 100 Other: Voiding Method Bedside Commode Bedside Commode # Voids 1 ABP, PAP, CO, CI - Last Documented Arterial Blood Pressure 119/92 - Exam GENERAL DESCRIPTION: An elderly female lying in bed in no distress RESPIRATORY SYSTEM: Unlabored breathing , decreased breath sounds at bases HEART: S1 S2 regular rate and rhythm , ABDOMEN: Soft , mild tenderness EXTREMITIES: No edema feet - Labs CBC & Chem 7: 12/24/23 05:38 12/24/23 05:38 Labs: Abnormal Lab Results - Last 24 Hours (Table) 12/23/23 12/24/23 12/24/23 Range/Units 20:36 00:33 05:38 RBC (4.10-5.20) X 10*6/uL Hgb (12.0-15.0) g/dL Hct (37.2-46.3) % Immature Gran # (0.00-0.04) X 10*3/uL Lymphocytes # (0.90-5.00) X 10*3/uL Sodium 133 L (137-145) mmol/L Potassium 3.3 L (3.5-5.1) mmol/L Carbon Dioxide 33 H (22-30) mmol/L BUN 22 H (7-17) mg/dL Creatinine 0.42 L (0.52-1.04) mg/dL POC Glucose (mg/dL) 123 H 138 H (70-110) mg/dL Calcium 7.7 L (8.4-10.2) mg/dL C-Reactive Protein 2.1 H (<1.0) mg/dL 12/24/23 12/24/23 Range/Units 05:38 11:43 RBC 3.20 L (4.10-5.20) X 10*6/uL Hgb 10.1 L (12.0-15.0) g/dL Hct 31.0 L (37.2-46.3) % Immature Gran # 0.08 H (0.00-0.04) X 10*3/uL Lymphocytes # 0.83 L (0.90-5.00) X 10*3/uL Sodium (137-145) mmol/L Potassium (3.5-5.1) mmol/L Carbon Dioxide (22-30) mmol/L BUN (7-17) mg/dL Creatinine (0.52-1.04) mg/dL POC Glucose (mg/dL) 125 H (70-110) mg/dL Calcium (8.4-10.2) mg/dL C-Reactive Protein (<1.0) mg/dL Assessment and Plan (1) Intra-abdominal abscess Current Visit: Yes Status: Acute Code(s): K65.1 - PERITONEAL ABSCESS SNOMED Code(s): 55515104 (2) Allergy to multiple antibiotics Current Visit: Yes Status: Acute Code(s): Z88.1 - ALLERGY STATUS TO OTHER ANTIBIOTIC AGENTS SNOMED Code(s): 175887547 (3) Perforated viscus Current Visit: Yes Status: Acute Code(s): R19.8 - OTH SYMPTOMS AND SIGNS INVOLVING THE DGSTV SYS AND ABDOMEN SNOMED Code(s): 879774745 Plan: 1patient presented to hospital with abdominal pain has been diagnosed with a perforated viscus in this patient was status post laparotomy with evidence of perforated sigmoid diverticulitis status post laparotomy sigmoid colectomy and end colostomy for likely organism need to cover will be enteric gram-negative both aerobes and anaerobes 2-patient did have repeat CT has with evidence of partial versus complete bowel obstruction NG has been placed which the patient has been tolerating 3-the patient remains to be afebrile, white count remains to be normal, patient is currently covered with cefepime and Flagyl to continue waiting for resumption of oral intake before switching her to oral antibiotics Dictation was produced using [id number] dictation software. please excuse any grammatical, word or spelling errors. Time with Patient: Less than 30
[2023-12-24] MEDS: POTASSIUM CHLORIDE ER 20 MEQ TAB.ER PO STA (13:11)
--- NOTE | 2023-12-24 13:48 | P.PN ---
Subjective Progress Note Date: 12/24/23 This is a 78-year-old female who has been followed by Dr. Elizabeth admitted for perforated sigmoid diverticulitis went for surgical repair/sigmoid colectomy with end colostomy. Patient continues on the medical floor remains n.p.o. with an NG tube in place. Repeat abdominal CT shows concern for complete bowel obstruction there is stool noted in the colostomy. Patient has positive bowel sounds throughout. She continues on antibiotics in the form of IV cefepime and IV Flagyl remains on parenteral nutrition. She received a dose of IV Lasix one- time yesterday. Potassium today 3.3. Sodium 133. Review of Systems Constitutional: Denied any fatigue denied any fever. Cardio vascular: denied any chest pain, palpitations Gastrointestinal: denied any nausea, vomiting, diarrhea Pulmonary: Denied any shortness of breath cough Neurologic denied any new focal deficits All inpatient medications were reviewed and appropriate changes in these medications as dictated in the interval history and assessment and plan. PHYSICAL EXAMINATION: GENERAL: The patient is alert and oriented x3, not in any acute distress. Well developed, well nourished. HEENT: Pupils are round and equally reacting to light. EOMI. No scleral icterus. No conjunctival pallor. Normocephalic, atraumatic. No pharyngeal erythema. No thyromegaly. CARDIOVASCULAR: S1 and S2 present. No murmurs, rubs, or gallops. PULMONARY: Chest is clear to auscultation, no wheezing or crackles. ABDOMEN: Soft, nontender, nondistended, normoactive bowel sounds. No palpable organomegaly. NG tube in place. Midline dressing intact. ostomy present left lower quad with brown liquid stool in ostomy. MUSCULOSKELETAL: No joint swelling or deformity. EXTREMITIES: No cyanosis, clubbing, or pedal edema. NEUROLOGICAL: Gross neurological examination did not reveal any focal deficits. SKIN: No rashes. Assessment and plan: -Acute sigmoid diverticulitis with perforation status post sigmoid resection and colostomy formation on December 08, cultures growing E. coli and alphahemolytic Streptococcus continues on antibiotics in the form of IV cefepime and IV Flagyl. -Bowel obstruction noted on abdominal CT continue with NG tube and n.p.o. diet patient is on parenteral nutrition which we will continue at this time -Anterior chest wall pain. Non-ST elevation [place]. Type II. -hypertensive heart disease. Severe LVH on echo. -Bilateral pleural effusions received a dose of IV Lasix, -Severe hypokalemia: resolved, continue to monitor and supplement per protocol -Secondary peritonitis from hollow viscus perforation, IV cefepime and IV Flagyl. ID following -COPD and a current smoker continue current home regimen -Chronic nicotine dependence, cigarette smoker -Hyperlipidemia -Severe protein calorie malnutrition. BMI 18.3. -Chronic muscle spasm -Peptic ulcer disease -Essential hypertension. GI prophylaxis DVT prophylaxis Full Code Continue with incentive spirometer 10 x an hour while awake, continue on TPN through PICC line. Patient remains NPO. Continue antibiotics. Recommend to repeat labs in the morning and encourage increasing activity level. Pulmonary and infectious disease are following. The impression and plan of care has been dictated by Alee Landis, Nurse Practitioner as directed. Dr. Ferdinand MD I have performed a history and physical examination and medical decision making of this patient, discussed the same with the dictator, and agree with the dictators assessment and plan as written, documented as a scribe. Based on total visit time, I have performed more than 50% of this visit. Objective - Vital Signs Vital signs: Vital Signs Temp 98.3 F 12/24/23 06:57 Pulse 67 12/24/23 06:57 Resp 16 12/24/23 06:57 BP 152/78 12/24/23 06:57 Pulse Ox 97 12/24/23 06:57 FiO2 30 12/09/23 10:00 Intake & Output 12/23/23 12/24/23 12/24/23 18:59 06:59 18:59 Intake Total 1031 Output Total 100 Balance 931 Weight 42.3 kg 36 kg Intake: Intake, IV Titration 1031 Amount Mvi, Adult No.4 with Vit 1031 K 10 ml Trace (Conc-1Ml/ Dose) 1 ml Potassium Chloride 40 meq In Amino Acid 5%-D20w+Lytes*E* 1, 000 ml @ 52 mls/hr IV . [id number] Rx#:[id number] Output: Stool 100 Other: Voiding Method Bedside Commode Bedside Commode # Voids 1 ABP, PAP, CO, CI - Last Documented Arterial Blood Pressure 119/92 - Labs CBC & Chem 7: 12/24/23 05:38 12/24/23 05:38 Labs: Abnormal Lab Results - Last 24 Hours (Table) 12/23/23 12/24/23 12/24/23 Range/Units 20:36 00:33 05:38 Sodium 133 L (137-145) mmol/L Potassium 3.3 L (3.5-5.1) mmol/L Carbon Dioxide 33 H (22-30) mmol/L BUN 22 H (7-17) mg/dL Creatinine 0.42 L (0.52-1.04) mg/dL POC Glucose (mg/dL) 123 H 138 H (70-110) mg/dL Calcium 7.7 L (8.4-10.2) mg/dL C-Reactive Protein 2.1 H (<1.0) mg/dL Assessment and Plan Time with Patient: Less than 30
--- NOTE | 2023-12-24 14:13 | P.PN ---
Subjective Progress Note Date: 12/24/23 The patient is seen today December 19, 2023 and follow-up on the regular medical floor. She is currently sitting up in bed. Awake and alert in no acute distress. She is maintaining O2 saturations in the 90s on room air. Nasogastric tube remains in place. Still having some mild abdominal discomfort. Ostomy with minimal output. Mild bloating. CT scan of the abdomen from yesterday revealed redemonstrated and overall stable appearance of findings concerning for small bowel obstruction with dilated small bowel loops and suspected transition point within the lower abdomen. No contrast is visualized extending into the colon. No plans for surgery at this point. Continuing conservative management per surgical services. Plan is for PICC line placement and to be transitioned to TPN. White count 11.5. Hemoglobin 10.9. Platelets 383. Sodium 133. Potassium 3.1. Bicarb 30. BUN 13. Creatinine 0.59. Glucose 102. Troponin 0.167, 0.174. Cardiology has been consulted. The patient is seen today December 20, 2023 in follow-up on the regular medical floor. She is awake and alert in no acute distress. She is sitting up in bed. She is maintaining O2 saturations in the 90s on room air. Nasogastric tube remains in place. She remains nothing by mouth. Abdominal x-ray today reveals gastric tube in appropriate position. No dilated loops of bowel identified. TPN at 30 MLS per hour for nutritional support. She remains on Flagyl and cefepime. White count 9.2. Hemoglobin 9.7. Platelets 322. Sodium 133. Potassium 2.9. Bicarb 27. BUN 12. Creatinine 0.47. Glucose 125. The patient is seen today December 21, 2023 in follow-up on the regular medical floor. She is sitting up in bed. Awake and alert in no acute distress. Nasogastric tube remains in place. She denies any worsening abdominal discomfort. Ostomy is functioning. She remains on TPN at 30 MLS per hour for nutritional support. Continued on Flagyl and cefepime. Continued on bronchodilators. NicoDerm patch in place. Heparin for DVT prophylaxis. Sodium 133. Potassium 3.8. Bicarb 23. BUN 15. Creatinine 0.36. Glucose 95. The patient is seen today December 22, 2023 and follow-up on the regular medical floor. She is currently awake and alert in no acute distress. Resting comfortably in bed. Continues to maintain good O2 saturation in the 90s on room air. She is afebrile. Hemodynamically stable. Echocardiogram reveals preserved left ventricular systolic function with ejection fraction of 65%. Sodium 133. Potassium 4.1. Bicarb 25. BUN 16. Creatinine 0.40. Glucose 84. Nasogastric tube remains in place. She remains NPO. She is receiving TPN for nutritional support. She is working well with the incentive spirometer. The patient is seen today December 23, 2023 in follow-up on the regular medical floor. She is currently sitting up in bed. Awake and alert in no acute distres s. Feeling stronger each day. She is maintaining O2 saturations in the 90s on room air. Chest x-ray shows evidence of COPD with ongoing small to moderate bilateral pleural effusions with adjacent atelectasis. She is encouraged regarding the increased use of the incentive spirometer. Sodium 136. Potassium 3.8. Bicarb 28. BUN 20. Creatinine 0.47. Glucose 100. Nasogastric tube remains in place. She is being nourished with TPN currently at 52 MLS per hour. She remains on bronchodilators. Antibiotics in the form of Flagyl and cefepime. The patient is seen today December 24, 2023 in follow-up on the regular medical floor. Awake and alert no acute distress. Currently sitting up in bed. Denies any worsening shortness of breath, cough or congestion. Maintaining good O2 saturations in the 90s on room air. Nasogastric tube remains in place. She is being nursed with TPN at 51 mL/h. Remains on antibiotics in the form of cefepime. Ostomy has good output. No abdominal pain. White count 7.2. Hemoglobin 10.0. Platelets 301. Sodium 133. Potassium 3.3. Bicarb 33. BUN 22. Creatinine 0.42. Glucose 85. Objective - Vital Signs Vital signs: Vital Signs Temp 98.3 F 12/24/23 06:57 Pulse 76 12/24/23 12:36 Resp 16 12/24/23 06:57 BP 152/78 12/24/23 06:57 Pulse Ox 97 12/24/23 06:57 FiO2 30 12/09/23 10:00 Intake & Output 12/23/23 12/24/23 12/24/23 18:59 06:59 18:59 Intake Total 1031 Output Total 100 Balance 931 Weight 42.3 kg 36 kg Intake: Intake, IV Titration 1031 Amount Mvi, Adult No.4 with Vit 1031 K 10 ml Trace (Conc-1Ml/ Dose) 1 ml Potassium Chloride 40 meq In Amino Acid 5%-D20w+Lytes*E* 1, 000 ml @ 52 mls/hr IV . [id number] [facility] Rx#:[id number] Output: Stool 100 Other: Voiding Method Bedside Commode Bedside Commode Bedside Commode # Voids 1 ABP, PAP, CO, CI - Last Documented Arterial Blood Pressure 119/92 - Exam GENERAL EXAM: Awake, 78-year-old female, resting in bed, on room air, in no apparent distress. HEAD: Normocephalic. EYES: Sluggish reaction of pupils, equal size. NOSE: Clear with pink turbinates. Nasogastric tube secured in place. THROAT: Nasogastric tube secured in place. No erythema or exudates. NECK: No masses, no JVD. CHEST: No chest wall deformity. LUNGS: Equal air entry with faint crackles in the posterior bases. CVS: S1 and S2 normal with no audible murmur, regular rhythm. ABDOMEN: Abdominal dressing dry and intact. Left abdominal ostomy present. Functioning SPINE: No scoliosis or deformity SKIN: No rashes CENTRAL NERVOUS SYSTEM: Sedated, tone is normal in all 4 extremities. EXTREMITIES: There is no peripheral edema. No clubbing, no cyanosis. Peripheral pulses are intact. - Labs CBC & Chem 7: 12/24/23 05:38 12/24/23 05:38 Labs: Abnormal Lab Results - Last 24 Hours (Table) 12/23/23 12/24/23 12/24/23 Range/Units 20:36 00:33 05:38 RBC (4.10-5.20) X 10*6/uL Hgb (12.0-15.0) g/dL Hct (37.2-46.3) % Immature Gran # (0.00-0.04) X 10*3/uL Lymphocytes # (0.90-5.00) X 10*3/uL Sodium 133 L (137-145) mmol/L Potassium 3.3 L (3.5-5.1) mmol/L Carbon Dioxide 33 H (22-30) mmol/L BUN 22 H (7-17) mg/dL Creatinine 0.42 L (0.52-1.04) mg/dL POC Glucose (mg/dL) 123 H 138 H (70-110) mg/dL Calcium 7.7 L (8.4-10.2) mg/dL C-Reactive Protein 2.1 H (<1.0) mg/dL 12/24/23 12/24/23 Range/Units 05:38 11:43 RBC 3.20 L (4.10-5.20) X 10*6/uL Hgb 10.1 L (12.0-15.0) g/dL Hct 31.0 L (37.2-46.3) % Immature Gran # 0.08 H (0.00-0.04) X 10*3/uL Lymphocytes # 0.83 L (0.90-5.00) X 10*3/uL Sodium (137-145) mmol/L Potassium (3.5-5.1) mmol/L Carbon Dioxide (22-30) mmol/L BUN (7-17) mg/dL Creatinine (0.52-1.04) mg/dL POC Glucose (mg/dL) 125 H (70-110) mg/dL Calcium (8.4-10.2) mg/dL C-Reactive Protein (<1.0) mg/dL Assessment and Plan Assessment: Severe acute abdominal pain secondary to perforated sigmoid diverticulitis. Status post exploratory laparotomy, sigmoid colectomy, end colostomy on December 08, 2023. Most recent CT scan of the abdomen reveals small bowel obstruction. Plan is for conservative management if possible. Nasogastric tube remains in place. Continued on TPN via PICC line Acute hypoxemic respiratory failure secondary to above requiring prolonged ventilation postoperatively, recovered and on room air Severe protein calorie malnutrition with a BMI of less than 20 kg/m History of gastric ulcers and esophagitis History of rheumatoid arthritis History of chronic obstructive pulmonary disease History of chronic tobacco dependence History of hypertension History of hyperlipidemia History of gastroesophageal reflux disease Plan: The patient was seen and evaluated Labs and medications reviewed TPN for nutritional support Nasogastric tube remains in place Increase her activity as tolerated Encouraged the increased use of the incentive spirometer We will continue to follow I have personally seen and examined the patient, performed the documentation and the assessment and plan as written. Number of minutes spent on the visit: 10.
--- NOTE | 2023-12-24 16:09 | P.PN ---
Subjective Progress Note Date: 12/24/23 Principal diagnosis: Post op ileus vs SBO after Lucio Objective - Vital Signs Vital signs: Vital Signs Temp 97.7 F 12/24/23 14:17 Pulse 75 12/24/23 14:17 Resp 18 12/24/23 14:17 BP 158/85 12/24/23 14:17 Pulse Ox 96 12/24/23 14:17 FiO2 30 12/09/23 10:00 Intake & Output 12/23/23 12/24/23 12/24/23 18:59 06:59 18:59 Intake Total 1031 Output Total 100 Balance 931 Weight 42.3 kg 36 kg Intake: Intake, IV Titration 1031 Amount Mvi, Adult No.4 with Vit 1031 K 10 ml Trace (Conc-1Ml/ Dose) 1 ml Potassium Chloride 40 meq In Amino Acid 5%-D20w+Lytes*E* 1, 000 ml @ 52 mls/hr IV . [id number] [facility] Rx#:[id number] Output: Stool 100 Other: Voiding Method Bedside Commode Bedside Commode Bedside Commode # Voids 1 ABP, PAP, CO, CI - Last Documented Arterial Blood Pressure 119/92 - Constitutional General appearance: Present: no acute distress, thin - Gastrointestinal General gastrointestinal: Absent: tenderness (some stool in stoma appliance) - Labs CBC & Chem 7: 12/24/23 05:38 12/24/23 05:38 Labs: Abnormal Lab Results - Last 24 Hours (Table) 12/23/23 12/24/23 12/24/23 Range/Units 20:36 00:33 05:38 RBC (4.10-5.20) X 10*6/uL Hgb (12.0-15.0) g/dL Hct (37.2-46.3) % Immature Gran # (0.00-0.04) X 10*3/uL Lymphocytes # (0.90-5.00) X 10*3/uL Sodium 133 L (137-145) mmol/L Potassium 3.3 L (3.5-5.1) mmol/L Carbon Dioxide 33 H (22-30) mmol/L BUN 22 H (7-17) mg/dL Creatinine 0.42 L (0.52-1.04) mg/dL POC Glucose (mg/dL) 123 H 138 H (70-110) mg/dL Calcium 7.7 L (8.4-10.2) mg/dL C-Reactive Protein 2.1 H (<1.0) mg/dL 12/24/23 12/24/23 Range/Units 05:38 11:43 RBC 3.20 L (4.10-5.20) X 10*6/uL Hgb 10.1 L (12.0-15.0) g/dL Hct 31.0 L (37.2-46.3) % Immature Gran # 0.08 H (0.00-0.04) X 10*3/uL Lymphocytes # 0.83 L (0.90-5.00) X 10*3/uL Sodium (137-145) mmol/L Potassium (3.5-5.1) mmol/L Carbon Dioxide (22-30) mmol/L BUN (7-17) mg/dL Creatinine (0.52-1.04) mg/dL POC Glucose (mg/dL) 125 H (70-110) mg/dL Calcium (8.4-10.2) mg/dL C-Reactive Protein (<1.0) mg/dL Assessment and Plan Assessment: The patient says the plan is possible imaging on Tuesday to see if her delayed return in bowel function is ileus vs SBO with the idea that if SBO, op will be needed. Plan: Con't NG, TPN Time with Patient: Greater than 30
[2023-12-24 18:02] LABS: Glucose,Whole Blood 136 mg/dL (70-110)
--- NOTE | 2023-12-24 18:06 | XR ---
EXAMINATION TYPE: XR chest 1V DATE OF EXAM: 12/24/2023 5:55 PM CLINICAL INDICATION:Female, 78 years old with history of confirm NG placement; COMPARISON: Chest radiographs from 12/22/2023. TECHNIQUE: XR chest 1V Frontal view of the chest. FINDINGS: Lungs/Pleura: There is flattening of the diaphragm with increased lucency of the lungs. No evidence o f pneumothorax or focal consolidation. Blunting of the costophrenic angles. Pulmonary vascularity: Unremarkable. Heart/mediastinum: Cardiomediastinal silhouette is enlarged and stable. Atherosclerotic calcificatio ns are seen in the aorta. Musculoskeletal: No acute osseous pathology. Other findings: None Lines/Tubes: Nasogastric tube with its distal tip and side-port projecting under the diaphragm. Right-sided PICC line with distal tip at the cavoatrial junction. IMPRESSION: 1. Nasogastric tube in appropriate position. 2. Blunting of the costophrenic angle suggests on pleural effusions. 3. COPD changes.
[2023-12-25 01:08] LABS: Glucose,Whole Blood 133 mg/dL (70-110)
[2023-12-25 06:04] LABS: Glucose,Whole Blood 105 mg/dL (70-110)
[2023-12-25 06:29] LABS: African American GFR (CKD) >90 (>60 ml/min/1.73 sqM); Anion Gap -1 mmol/L; Blood Urea Nitrogen 21 mg/dL (7-17); Carbon Dioxide 30 mmol/L (22-30); Chloride 104 mmol/L (98-107); Glucose 95 mg/dL (74-99); Non-African American GFR(CKD) >90 (>60 ml/min/1.73 sqM); Phosphorus 2.7 mg/dL (2.5-4.5); Sodium 133 mmol/L (137-145)
--- NOTE | 2023-12-25 09:17 | P.PN ---
Subjective Progress Note Date: 12/25/23 Principal diagnosis: Patient has complaints of some mild abdominal pain. She states she does not feel well. On exam vital signs are stable. Abdomen soft. Patient be scheduled for CT scan of the abdomen today. Objective - Vital Signs Vital signs: Vital Signs Temp 97.4 F L 12/25/23 07:00 Pulse 72 12/25/23 07:00 Resp 16 12/25/23 07:00 BP 156/80 12/25/23 07:00 Pulse Ox 97 12/25/23 07:00 FiO2 30 12/09/23 10:00 Intake & Output 12/24/23 12/25/23 12/25/23 18:59 06:59 18:59 Intake Total 1036 Balance 1036 Weight 33 kg Intake: Intake, IV Titration 1036 Amount Mvi, Adult No.4 with Vit 1036 K 10 ml Trace (Conc-1Ml/ Dose) 1 ml Potassium Chloride 40 meq Sodium Chloride 4Meq/ml Vial 20 meq In Amino Acid 5%-D20w +Lytes*E* 1,000 ml @ 52 mls/hr IV .[id number] [facility] Rx #:[id number] Other: Voiding Method Bedside Commode Bedside Commode Bedside Commode Bedpan Diaper Incontinent # Voids 7 4 ABP, PAP, CO, CI - Last Documented Arterial Blood Pressure 119/92 - Labs CBC & Chem 7: 12/24/23 05:38 12/25/23 05:42 Labs: Abnormal Lab Results - Last 24 Hours (Table) 12/24/23 12/24/23 12/24/23 Range/Units 05:38 11:43 18:00 RBC 3.20 L (4.10-5.20) X 10*6/uL Hgb 10.1 L (12.0-15.0) g/dL Hct 31.0 L (37.2-46.3) % Immature Gran # 0.08 H (0.00-0.04) X 10*3/uL Lymphocytes # 0.83 L (0.90-5.00) X 10*3/uL Sodium (137-145) mmol/L BUN (7-17) mg/dL Creatinine (0.52-1.04) mg/dL POC Glucose (mg/dL) 125 H 136 H (70-110) mg/dL Calcium (8.4-10.2) mg/dL 12/25/23 12/25/23 Range/Units 01:04 05:42 RBC (4.10-5.20) X 10*6/uL Hgb (12.0-15.0) g/dL Hct (37.2-46.3) % Immature Gran # (0.00-0.04) X 10*3/uL Lymphocytes # (0.90-5.00) X 10*3/uL Sodium 133 L (137-145) mmol/L BUN 21 H (7-17) mg/dL Creatinine 0.43 L (0.52-1.04) mg/dL POC Glucose (mg/dL) 133 H (70-110) mg/dL Calcium 8.0 L (8.4-10.2) mg/dL
[2023-12-25] MEDS: IOPAMIDOL CONTRAST (ORAL USE) VIAL PO PRN (11:30)
[2023-12-25 11:57] LABS: Glucose,Whole Blood 116 mg/dL (70-110)
--- NOTE | 2023-12-25 13:42 | CT ---
EXAMINATION TYPE: CT abdomen pelvis w con CT DLP: 490.8 mGycm, Automated exposure control for dose reduction was used. DATE OF EXAM: 12/25/2023 1:25 PM COMPARISON: 12/18/2023. CLINICAL INDICATION:Female, 78 years old with history of Abdominal pain; abd pain TECHNIQUE: Axial CT abdomen pelvis w con;Sagittal and coronal reformats were created on a separate w orkstation. Contrast used:72 mL of Isovue 300 with IV Contrast, (none if empty) Oral contrast used: with Oral Contrast (none if empty) FINDINGS: LOWER CHEST: Stable partially visualized pleural effusions. ABDOMEN LIVER: Scattered hepatic cysts are identified throughout the liver. GALLBLADDER AND BILE DUCTS: Unremarkable. PANCREAS: Unremarkable. SPLEEN: Unremarkable. ADRENAL GLANDS: Unremarkable. KIDNEYS AND URETERS: No evidence of hydronephrosis or renal calculus. The ureters are unremarkable. PELVIS BLADDER: Unremarkable REPRODUCTIVE: Unremarkable. ABDOMEN & PELVIS STOMACH AND BOWEL: Decrease in dilated loops of bowel throughout the abdomen when comparing to immedi ate prior's, oral contrast extends to the rectum. Dilated bowel to 2.5 cm remains present. No transit ion point definitively visualized. PERITONEUM/RETROPERITONEUM: No evidence of pneumoperitoneum. Mesenteric edema is again identified as well small free fluid within the pelvis. VASCULATURE: Mild atherosclerotic calcifications are present throughout the abdominal aorta and its b ranches. No evidence of aortic aneurysm. MUSCULOSKELETAL: No acute osseous abnormalities. Mild disc degeneration changes are present throughou t the thoracolumbar spine. LYMPH NODES: No gross evidence for lymphadenopathy. SOFT TISSUE/ABDOMINAL WALL: Soft tissue anasarca. Postsurgical changes anteriorly. IMPRESSION: Decrease in dilated loops of bowel throughout the abdomen when comparing to immediate prior's, oral c ontrast extends to the rectum. Correlate for ileus and/or partial bowel obstruction.
--- NOTE | 2023-12-25 14:41 | P.PN ---
Subjective Progress Note Date: 12/25/23 The patient is seen today December 19, 2023 and follow-up on the regular medical floor. She is currently sitting up in bed. Awake and alert in no acute distress. She is maintaining O2 saturations in the 90s on room air. Nasogastric tube remains in place. Still having some mild abdominal discomfort. Ostomy with minimal output. Mild bloating. CT scan of the abdomen from yesterday revealed redemonstrated and overall stable appearance of findings concerning for small bowel obstruction with dilated small bowel loops and suspected transition point within the lower abdomen. No contrast is visualized extending into the colon. No plans for surgery at this point. Continuing conservative management per surgical services. Plan is for PICC line placement and to be transitioned to TPN. White count 11.5. Hemoglobin 10.9. Platelets 383. Sodium 133. Potassium 3.1. Bicarb 30. BUN 13. Creatinine 0.59. Glucose 102. Troponin 0.167, 0.174. Cardiology has been consulted. The patient is seen today December 20, 2023 in follow-up on the regular medical floor. She is awake and alert in no acute distress. She is sitting up in bed. She is maintaining O2 saturations in the 90s on room air. Nasogastric tube remains in place. She remains nothing by mouth. Abdominal x-ray today reveals gastric tube in appropriate position. No dilated loops of bowel identified. TPN at 30 MLS per hour for nutritional support. She remains on Flagyl and cefepime. White count 9.2. Hemoglobin 9.7. Platelets 322. Sodium 133. Potassium 2.9. Bicarb 27. BUN 12. Creatinine 0.47. Glucose 125. The patient is seen today December 21, 2023 in follow-up on the regular medical floor. She is sitting up in bed. Awake and alert in no acute distress. Nasogastric tube remains in place. She denies any worsening abdominal discomfort. Ostomy is functioning. She remains on TPN at 30 MLS per hour for nutritional support. Continued on Flagyl and cefepime. Continued on bronchodilators. NicoDerm patch in place. Heparin for DVT prophylaxis. Sodium 133. Potassium 3.8. Bicarb 23. BUN 15. Creatinine 0.36. Glucose 95. The patient is seen today December 22, 2023 and follow-up on the regular medical floor. She is currently awake and alert in no acute distress. Resting comfortably in bed. Continues to maintain good O2 saturation in the 90s on room air. She is afebrile. Hemodynamically stable. Echocardiogram reveals preserved left ventricular systolic function with ejection fraction of 65%. Sodium 133. Potassium 4.1. Bicarb 25. BUN 16. Creatinine 0.40. Glucose 84. Nasogastric tube remains in place. She remains NPO. She is receiving TPN for nutritional support. She is working well with the incentive spirometer. The patient is seen today December 23, 2023 in follow-up on the regular medical floor. She is currently sitting up in bed. Awake and alert in no acute distres s. Feeling stronger each day. She is maintaining O2 saturations in the 90s on room air. Chest x-ray shows evidence of COPD with ongoing small to moderate bilateral pleural effusions with adjacent atelectasis. She is encouraged regarding the increased use of the incentive spirometer. Sodium 136. Potassium 3.8. Bicarb 28. BUN 20. Creatinine 0.47. Glucose 100. Nasogastric tube remains in place. She is being nourished with TPN currently at 52 MLS per hour. She remains on bronchodilators. Antibiotics in the form of Flagyl and cefepime. The patient is seen today December 24, 2023 in follow-up on the regular medical floor. Awake and alert no acute distress. Currently sitting up in bed. Denies any worsening shortness of breath, cough or congestion. Maintaining good O2 saturations in the 90s on room air. Nasogastric tube remains in place. She is being nursed with TPN at 51 mL/h. Remains on antibiotics in the form of cefepime. Ostomy has good output. No abdominal pain. White count 7.2. Hemoglobin 10.0. Platelets 301. Sodium 133. Potassium 3.3. Bicarb 33. BUN 22. Creatinine 0.42. Glucose 85. The patient is seen today December 25, 2019 for follow-up on the regular medical floor. She is sitting up in bed. Awake and alert in no acute distress. Denies any worsening shortness of breath, cough or congestion. She is maintaining good O2 saturations in the 90s on room air. Chest x-ray reveals small bilateral effusions. Evidence of COPD. Nasogastric tube in good position. Right-sided PICC line in place. Follow-up CT scan of the abdomen pelvis revealed decrease in dilated loops of bowel throughout the abdomen compared to previous. Oral contrast extends to the rectum. Dilated bowel to 2.5 cm remains present. No transition point definitively visualized. Correlate for ileus and/or partial bowel obstruction. The gastric tube remains to wall suction. She remains on TPN for nutritional support. Remains on cefepime and Flagyl. Continued on bronchodilators. Sodium 133. Potassium 4.0. Bicarb 30. BUN 21. Creatinine 0.43. Glucose 95. Objective - Vital Signs Vital signs: Vital Signs Temp 97.4 F L 12/25/23 07:00 Pulse 72 12/25/23 07:00 Resp 16 12/25/23 07:00 BP 156/80 12/25/23 07:00 Pulse Ox 97 12/25/23 07:00 FiO2 30 12/09/23 10:00 Intake & Output 12/24/23 12/25/23 12/25/23 18:59 06:59 18:59 Intake Total 1036 Balance 1036 Weight 33 kg Intake: Intake, IV Titration 1036 Amount Mvi, Adult No.4 with Vit 1036 K 10 ml Trace (Conc-1Ml/ Dose) 1 ml Potassium Chloride 40 meq Sodium Chloride 4Meq/ml Vial 20 meq In Amino Acid 5%-D20w +Lytes*E* 1,000 ml @ 52 mls/hr IV .[id number] [facility] Rx #:[id number] Other: Voiding Method Bedside Commode Bedside Commode Bedside Commode Bedpan Diaper Incontinent # Voids 7 4 ABP, PAP, CO, CI - Last Documented Arterial Blood Pressure 119/92 - Exam GENERAL EXAM: Awake, alert, pleasant 78-year-old female, resting in bed, on room air, in no apparent distress. HEAD: Normocephalic. EYES: Sluggish reaction of pupils, equal size. NOSE: Clear with pink turbinates. Nasogastric tube secured in place. THROAT: Nasogastric tube secured in place. No erythema or exudates. NECK: No masses, no JVD. CHEST: No chest wall deformity. LUNGS: Equal air entry with faint crackles in the posterior bases. CVS: S1 and S2 normal with no audible murmur, regular rhythm. ABDOMEN: Abdominal dressing dry and intact. Left abdominal ostomy present. Functioning SPINE: No scoliosis or deformity SKIN: No rashes CENTRAL NERVOUS SYSTEM: Sedated, tone is normal in all 4 extremities. EXTREMITIES: There is no peripheral edema. No clubbing, no cyanosis. Peripheral pulses are intact. - Labs CBC & Chem 7: 12/24/23 05:38 12/25/23 05:42 Labs: Abnormal Lab Results - Last 24 Hours (Table) 12/24/23 12/25/23 12/25/23 Range/Units 18:00 01:04 05:42 Sodium 133 L (137-145) mmol/L BUN 21 H (7-17) mg/dL Creatinine 0.43 L (0.52-1.04) mg/dL POC Glucose (mg/dL) 136 H 133 H (70-110) mg/dL Calcium 8.0 L (8.4-10.2) mg/dL 12/25/23 Range/Units 11:56 Sodium (137-145) mmol/L BUN (7-17) mg/dL Creatinine (0.52-1.04) mg/dL POC Glucose (mg/dL) 116 H (70-110) mg/dL Calcium (8.4-10.2) mg/dL Assessment and Plan Assessment: Severe acute abdominal pain secondary to perforated sigmoid diverticulitis. Status post exploratory laparotomy, sigmoid colectomy, end colostomy on December 08, 2023. Most recent CT scan of the abdomen reveals ileus versus partial small bowel obstruction. Plan is for conservative management if possible. Nasogastric tube remains in place. Continued on TPN via PICC line Acute hypoxemic respiratory failure secondary to above requiring prolonged ventilation postoperatively, recovered and on room air Severe protein calorie malnutrition with a BMI of less than 20 kg/m History of gastric ulcers and esophagitis History of rheumatoid arthritis History of chronic obstructive pulmonary disease History of chronic tobacco dependence History of hypertension History of hyperlipidemia History of gastroesophageal reflux disease Plan: The patient was seen and evaluated Chest x-ray, CT scan, abs and medications reviewed Small bilateral pleural effusions No plans for thoracentesis TPN for nutritional support Nasogastric tube remains in place Increase her activity as tolerated Encouraged the increased use of the incentive spirometer We will continue to follow I have personally seen and examined the patient, performed the documentation and the assessment and plan as written. Number of minutes spent on the visit: 10.
--- NOTE | 2023-12-25 14:53 | P.PN ---
Subjective Progress Note Date: 12/25/23 This is a 78-year-old female who has been followed by Dr. Elizabeth admitted for perforated sigmoid diverticulitis went for surgical repair/sigmoid colectomy with end colostomy. Patient continues on the medical floor remains n.p.o. with an NG tube in place. Repeat abdominal CT shows concern for complete bowel obstruction there is stool noted in the colostomy. Patient has positive bowel sounds throughout. She continues on antibiotics in the form of IV cefepime and IV Flagyl remains on parenteral nutrition. She received a dose of IV Lasix one- time yesterday. Potassium today 3.3. Sodium 133. 12/25/2023 Patient evaluated today resting in bed. She is reporting some increased abdominal pain and overall not feeling well. She is currently undergoing a repeat abdominal CT scan and has received the contrast. NG tube remains in place currently clamped. She does have positive bowel sounds and has some small amount of brown stool in the ostomy. Patient received a dose of IV Lasix 2 days ago for the small bilateral pleural effusions which are essentially stable at this time. Her sodium level is 133. Remains on TPN. Review of Systems Constitutional: Denied any fatigue denied any fever. Cardio vascular: denied any chest pain, palpitations Gastrointestinal: denied any nausea, vomiting, diarrhea Pulmonary: Denied any shortness of breath cough Neurologic denied any new focal deficits All inpatient medications were reviewed and appropriate changes in these medications as dictated in the interval history and assessment and plan. PHYSICAL EXAMINATION: GENERAL: The patient is alert and oriented x3, not in any acute distress. Well developed, well nourished. HEENT: Pupils are round and equally reacting to light. EOMI. No scleral icterus. No conjunctival pallor. Normocephalic, atraumatic. No pharyngeal erythema. No thyromegaly. CARDIOVASCULAR: S1 and S2 present. No murmurs, rubs, or gallops. PULMONARY: Chest is clear to auscultation, no wheezing or crackles. ABDOMEN: Soft, nontender, nondistended, normoactive bowel sounds. No palpable organomegaly. NG tube in place. Midline dressing intact. ostomy present left lower quad with brown liquid stool in ostomy. MUSCULOSKELETAL: No joint swelling or deformity. EXTREMITIES: No cyanosis, clubbing, or pedal edema. NEUROLOGICAL: Gross neurological examination did not reveal any focal deficits. SKIN: No rashes. Assessment and plan: -Acute sigmoid diverticulitis with perforation status post sigmoid resection and colostomy formation on December 08, cultures growing E. coli and alphahemolytic Streptococcus continues on antibiotics in the form of IV cefepime and IV Flagyl. -Bowel obstruction noted on abdominal CT continue with NG tube and n.p.o. diet patient is on parenteral nutrition which we will continue at this time patient is scheduled to undergo a repeat abdominal pelvis CT today and results are currently pending -Anterior chest wall pain. Non-ST elevation MN. Type II. -hypertensive heart disease. Severe LVH on echo. -Bilateral pleural effusions received a dose of IV Lasix, -Severe hypokalemia: resolved, continue to monitor and supplement per protocol -Secondary peritonitis from hollow viscus perforation, IV cefepime and IV Flagyl. ID following -COPD and a current smoker continue current home regimen -Chronic nicotine dependence, cigarette smoker -Hyperlipidemia -Severe protein calorie malnutrition. BMI 18.3. -Chronic muscle spasm -Peptic ulcer disease -Essential hypertension. GI prophylaxis DVT prophylaxis Full Code Continue with incentive spirometer 10 x an hour while awake, continue on TPN through PICC line. Patient remains NPO. Continue antibiotics. Recommend to repeat labs in the morning and encourage increasing activity level. Pulmonary and infectious disease are following. The impression and plan of care has been dictated by Alee Landis, Nurse Practitioner as directed. Dr. Ferdinand MD I have performed a history and physical examination and medical decision making of this patient, discussed the same with the dictator, and agree with the dictators assessment and plan as written, documented as a scribe. Based on total visit time, I have performed more than 50% of this visit. Objective - Vital Signs Vital signs: Vital Signs Temp 97.4 F L 12/25/23 07:00 Pulse 72 12/25/23 07:00 Resp 16 12/25/23 07:00 BP 156/80 12/25/23 07:00 Pulse Ox 97 12/25/23 07:00 FiO2 30 12/09/23 10:00 Intake & Output 12/24/23 12/25/23 12/25/23 18:59 06:59 18:59 Intake Total 1036 Balance 1036 Weight 33 kg Intake: Intake, IV Titration 1036 Amount Mvi, Adult No.4 with Vit 1036 K 10 ml Trace (Conc-1Ml/ Dose) 1 ml Potassium Chloride 40 meq Sodium Chloride 4Meq/ml Vial 20 meq In Amino Acid 5%-D20w +Lytes*E* 1,000 ml @ 52 mls/hr IV .[id number] [facility] Rx #:[id number] Other: Voiding Method Bedside Commode Bedside Commode Bedside Commode Bedpan Diaper Incontinent # Voids 7 4 ABP, PAP, CO, CI - Last Documented Arterial Blood Pressure 119/92 - Labs CBC & Chem 7: 12/24/23 05:38 12/25/23 05:42 Labs: Abnormal Lab Results - Last 24 Hours (Table) 12/24/23 12/24/23 12/24/23 Range/Units 05:38 11:43 18:00 RBC 3.20 L (4.10-5.20) X 10*6/uL Hgb 10.1 L (12.0-15.0) g/dL Hct 31.0 L (37.2-46.3) % Immature Gran # 0.08 H (0.00-0.04) X 10*3/uL Lymphocytes # 0.83 L (0.90-5.00) X 10*3/uL Sodium (137-145) mmol/L BUN (7-17) mg/dL Creatinine (0.52-1.04) mg/dL POC Glucose (mg/dL) 125 H 136 H (70-110) mg/dL Calcium (8.4-10.2) mg/dL 12/25/23 12/25/23 Range/Units 01:04 05:42 RBC (4.10-5.20) X 10*6/uL Hgb (12.0-15.0) g/dL Hct (37.2-46.3) % Immature Gran # (0.00-0.04) X 10*3/uL Lymphocytes # (0.90-5.00) X 10*3/uL Sodium 133 L (137-145) mmol/L BUN 21 H (7-17) mg/dL Creatinine 0.43 L (0.52-1.04) mg/dL POC Glucose (mg/dL) 133 H (70-110) mg/dL Calcium 8.0 L (8.4-10.2) mg/dL Assessment and Plan Time with Patient: Less than 30
[2023-12-25 16:44] LABS: Glucose,Whole Blood 124 mg/dL (70-110)
[2023-12-25] MEDS: [UNRECOGNIZED DRUG - REMARK] IV SCH (22:18)
--- NOTE | 2023-12-25 22:56 | P.PN ---
Subjective Progress Note Date: 12/25/23 Principal diagnosis: Reason for follow-up is perforated diverticulitis and abscess Patient is a 78-year-old female with a past medical history significant for COPD hypertension rheumatoid arthritis presenting to the ER for evaluation of epigastric abdominal pain, patient did have a CT abdominal pelvis concerning for free subsequently taken to the OR status post laparotomy with evidence of perforated sigmoid diverticulitis status post sigmoid colectomy and end colostomy. On today's evaluation that is 12/25/2023,the patient denies any fever or any chills, patient is breathing comfortably on room air, the patient denies chest pain shortness of breath and no significant cough, patient abdominal pain has decreased in intensity still have the NG though do have output in the colostomy. Patient did have a creatinine 0.43 Objective - Vital Signs Vital signs: Vital Signs Temp 97.4 F L 12/25/23 07:00 Pulse 72 12/25/23 07:00 Resp 16 12/25/23 07:00 BP 156/80 12/25/23 07:00 Pulse Ox 97 12/25/23 07:00 FiO2 30 12/09/23 10:00 Intake & Output 12/24/23 12/25/23 12/25/23 18:59 06:59 18:59 Intake Total 1036 Balance 1036 Weight 33 kg Intake: Intake, IV Titration 1036 Amount Mvi, Adult No.4 with Vit 1036 K 10 ml Trace (Conc-1Ml/ Dose) 1 ml Potassium Chloride 40 meq Sodium Chloride 4Meq/ml Vial 20 meq In Amino Acid 5%-D20w +Lytes*E* 1,000 ml @ 52 mls/hr IV .[id number] [facility] Rx #:[id number] Other: Voiding Method Bedside Commode Bedside Commode Bedside Commode Bedpan Diaper Incontinent # Voids 7 4 ABP, PAP, CO, CI - Last Documented Arterial Blood Pressure 119/92 - Exam GENERAL DESCRIPTION: An elderly female lying in bed in no distress RESPIRATORY SYSTEM: Unlabored breathing , decreased breath sounds at bases HEART: S1 S2 regular rate and rhythm , ABDOMEN: Soft , mild tenderness EXTREMITIES: No edema feet - Labs CBC & Chem 7: 12/24/23 05:38 12/25/23 05:42 Labs: Abnormal Lab Results - Last 24 Hours (Table) 12/24/23 12/24/2324 Range/Units 11:43 18:00 01:04 Sodium (137-145) mmol/L BUN (7-17) mg/dL Creatinine (0.52-1.04) mg/dL POC Glucose (mg/dL) 125 H 136 H 133 H (70-110) mg/dL Calcium (8.4-10.2) mg/dL 12/25/23 Range/Units 05:42 Sodium 133 L (137-145) mmol/L BUN 21 H (7-17) mg/dL Creatinine 0.43 L (0.52-1.04) mg/dL POC Glucose (mg/dL) (70-110) mg/dL Calcium 8.0 L (8.4-10.2) mg/dL Assessment and Plan (1) Intra-abdominal abscess Current Visit: Yes Status: Acute Code(s): K65.1 - PERITONEAL ABSCESS SNOMED Code(s): 33371747 (2) Allergy to multiple antibiotics Current Visit: Yes Status: Acute Code(s): Z88.1 - ALLERGY STATUS TO OTHER ANTIBIOTIC AGENTS SNOMED Code(s): 573211649 (3) Perforated viscus Current Visit: Yes Status: Acute Code(s): R19.8 - OTH SYMPTOMS AND SIGNS INVOLVING THE DGSTV SYS AND ABDOMEN SNOMED Code(s): 282990167 Plan: 1patient presented to hospital with abdominal pain has been diagnosed with a perforated viscus in this patient was status post laparotomy with evidence of perforated sigmoid diverticulitis status post laparotomy sigmoid colectomy and end colostomy for likely organism need to cover will be enteric gram-negative both aerobes and anaerobes 2-patient did have repeat CT has with evidence of partial versus complete bowel obstruction NG has been placed which the patient has been tolerating 3-the patient remains to be afebrile, white count has been normal, patient to continue with cefepime and Flagyl while waiting for resumption of oral intake before switching her to oral antibiotics Dictation was produced using [employer] dictation software. please excuse any grammatical, word or spelling errors. Time with Patient: Less than 30
[2023-12-26 00:07] LABS: Glucose,Whole Blood 135 mg/dL (70-110)
[2023-12-26 06:05] LABS: Glucose,Whole Blood 120 mg/dL (70-110)
[2023-12-26 07:15] LABS: African American GFR (CKD) >90 (>60 ml/min/1.73 sqM); Anion Gap 1 mmol/L; Blood Urea Nitrogen 18 mg/dL (7-17); Calcium 7.8 mg/dL (8.4-10.2); Carbon Dioxide 29 mmol/L (22-30); Chloride 103 mmol/L (98-107); Glucose 116 mg/dL (74-99); Magnesium 1.9 mg/dL (1.6-2.3); Non-African American GFR(CKD) >90 (>60 ml/min/1.73 sqM); Phosphorus 2.7 mg/dL (2.5-4.5); Potassium 3.7 mmol/L (3.5-5.1); Sodium 133 mmol/L (137-145)
[2023-12-26] MEDS: MAGNESIUM SULFATE-D5W PMX 1 GM in DEXTROSE/WATER 1 100ML.BAG IVPB ONE (09:07)
[2023-12-26 09:08] LABS: Basophils % (A) 1.2 %; Eosinophils # (A) 0.01 X 10*3/uL (0.04-0.35); Eosinophils % (A) 0.1 %; HCT 32.1 % (37.2-46.3); HGB 10.4 g/dL (12.0-15.0); Lymphocytes # (A) 0.82 X 10*3/uL (0.90-5.00); MCH 31.4 pg (27.0-32.0); MCHC 32.4 g/dL (32.0-37.0); Mean Platelet Volume 10.8 FL (9.5-12.2); NRBC Per 100 WBC 0 X 10*3/uL (0.00-0.01); Neutrophils % (A) 76.7 %; Platelet Count 294 X 10*3/uL (140-440); RBC 3.31 X 10*6/uL (4.10-5.20); RDW 14.4 % (11.5-14.5); WBC 8.21 X 10*3/uL (4.50-10.00)
[2023-12-26] MEDS: LOSARTAN 25 MG TAB PO SCH (09:22)
[2023-12-26] MEDS: POTASSIUM BICARBONATE/CIT AC 20 MEQ TABLET.EFF PO ONE (09:50)
[2023-12-26] MEDS: ONDANSETRON 4 MG/2 ML VIAL IVP PRN (11:44)
[2023-12-26 12:28] LABS: Glucose,Whole Blood 140 mg/dL (70-110)
--- NOTE | 2023-12-26 12:32 | P.PN ---
Subjective Progress Note Date: 12/26/23 Principal diagnosis: Reason for follow-up is perforated diverticulitis and abscess Patient is a 78-year-old female with a past medical history significant for COPD hypertension rheumatoid arthritis presenting to the ER for evaluation of epigastric abdominal pain, patient did have a CT abdominal pelvis concerning for free subsequently taken to the OR status post laparotomy with evidence of perforated sigmoid diverticulitis status post sigmoid colectomy and end colostomy. On today's evaluation that is 12/26/2023,the patient remains to be afebrile, patient is on room air not requiring supplemental oxygen and denies any shortness of breath no chest pain occasional cough.Patient denies having any nausea or vomiting, abdominal pain is currently controlled with pain medication and did have output in her colostomy. Patient did have a white count of 8.21, creatinine 0.42 CT abdominal pelvis decrease in dilated loops of bowel throughout the abdomen Objective - Vital Signs Vital signs: Vital Signs Temp 97.9 F 12/26/23 07:57 Pulse 76 12/26/23 11:55 Resp 14 12/26/23 07:57 BP 188/78 12/26/23 07:57 Pulse Ox 98 12/26/23 07:57 FiO2 30 12/09/23 10:00 Intake & Output 12/25/23 12/26/23 12/26/23 18:59 06:59 18:59 Output Total 100 Balance -100 Output: Gastric Drainage 100 Other: Voiding Method Bedside Commode Bedside Commode Bedside Commode Bedpan Bedpan Bedpan Diaper Diaper Diaper Incontinent # Voids 7 12 # Bowel Movements 0 ABP, PAP, CO, CI - Last Documented Arterial Blood Pressure 119/92 - Exam GENERAL DESCRIPTION: An elderly female lying in bed in no distress RESPIRATORY SYSTEM: Unlabored breathing , decreased breath sounds at bases HEART: S1 S2 regular rate and rhythm , ABDOMEN: Soft , mild tenderness EXTREMITIES: No edema feet - Labs CBC & Chem 7: 12/26/23 06:14 12/26/23 06:14 Labs: Abnormal Lab Results - Last 24 Hours (Table) 12/25/23 12/26/23 12/26/23 Range/Units 16:43 00:05 06:02 RBC (4.10-5.20) X 10*6/uL Hgb (12.0-15.0) g/dL Hct (37.2-46.3) % Immature Gran # (0.00-0.04) X 10*3/uL Lymphocytes # (0.90-5.00) X 10*3/uL Eosinophils # (0.04-0.35) X 10*3/uL Sodium (137-145) mmol/L BUN (7-17) mg/dL Creatinine (0.52-1.04) mg/dL Glucose (74-99) mg/dL POC Glucose (mg/dL) 124 H 135 H 120 H (70-110) mg/dL Calcium (8.4-10.2) mg/dL 12/26/23 12/26/23 12/26/23 Range/Units 06:14 06:14 12:24 RBC 3.31 L (4.10-5.20) X 10*6/uL Hgb 10.4 L (12.0-15.0) g/dL Hct 32.1 L (37.2-46.3) % Immature Gran # 0.08 H (0.00-0.04) X 10*3/uL Lymphocytes # 0.82 L (0.90-5.00) X 10*3/uL Eosinophils # 0.01 L (0.04-0.35) X 10*3/uL Sodium 133 L (137-145) mmol/L BUN 18 H (7-17) mg/dL Creatinine 0.42 L (0.52-1.04) mg/dL Glucose 116 H (74-99) mg/dL POC Glucose (mg/dL) 140 H (70-110) mg/dL Calcium 7.8 L (8.4-10.2) mg/dL Assessment and Plan (1) Intra-abdominal abscess Current Visit: Yes Status: Acute Code(s): K65.1 - PERITONEAL ABSCESS SNOMED Code(s): 47265881 (2) Allergy to multiple antibiotics Current Visit: Yes Status: Acute Code(s): Z88.1 - ALLERGY STATUS TO OTHER ANTIBIOTIC AGENTS SNOMED Code(s): 853064004 (3) Perforated viscus Current Visit: Yes Status: Acute Code(s): R19.8 - OTH SYMPTOMS AND SIGNS INVOLVING THE DGSTV SYS AND ABDOMEN SNOMED Code(s): 055145414 Plan: 1patient presented to hospital with abdominal pain has been diagnosed with a perforated viscus in this patient was status post laparotomy with evidence of pe rforated sigmoid diverticulitis status post laparotomy sigmoid colectomy and end colostomy for likely organism need to cover will be enteric gram-negative both aerobes and anaerobes 2-patient did have repeat CT has with evidence of partial versus complete bowel obstruction NG has been placed which the patient has been tolerating 3-the patient remains to be afebrile, white count has been normal, patient did have a follow-up CT on 12/25/2023 and it shows improvement in the bowel dilatation pattern no abscess 4-patient will continue with cefepime and Flagyl waiting for resumption of the bowel activity and monitor clinical course closely Dictation was produced using [employer] dictation software. please excuse any grammatical, word or spelling errors. Time with Patient: Less than 30
--- NOTE | 2023-12-26 13:35 | P.PN ---
Subjective Progress Note Date: 12/26/23 The patient is seen today December 19, 2023 and follow-up on the regular medical floor. She is currently sitting up in bed. Awake and alert in no acute distress. She is maintaining O2 saturations in the 90s on room air. Nasogastric tube remains in place. Still having some mild abdominal discomfort. Ostomy with minimal output. Mild bloating. CT scan of the abdomen from yesterday revealed redemonstrated and overall stable appearance of findings concerning for small bowel obstruction with dilated small bowel loops and suspected transition point within the lower abdomen. No contrast is visualized extending into the colon. No plans for surgery at this point. Continuing conservative management per surgical services. Plan is for PICC line placement and to be transitioned to TPN. White count 11.5. Hemoglobin 10.9. Platelets 383. Sodium 133. Potassium 3.1. Bicarb 30. BUN 13. Creatinine 0.59. Glucose 102. Troponin 0.167, 0.174. Cardiology has been consulted. The patient is seen today December 20, 2023 in follow-up on the regular medical floor. She is awake and alert in no acute distress. She is sitting up in bed. She is maintaining O2 saturations in the 90s on room air. Nasogastric tube remains in place. She remains nothing by mouth. Abdominal x-ray today reveals gastric tube in appropriate position. No dilated loops of bowel identified. TPN at 30 MLS per hour for nutritional support. She remains on Flagyl and cefepime. White count 9.2. Hemoglobin 9.7. Platelets 322. Sodium 133. Potassium 2.9. Bicarb 27. BUN 12. Creatinine 0.47. Glucose 125. The patient is seen today December 21, 2023 in follow-up on the regular medical floor. She is sitting up in bed. Awake and alert in no acute distress. Nasogastric tube remains in place. She denies any worsening abdominal discomfort. Ostomy is functioning. She remains on TPN at 30 MLS per hour for nutritional support. Continued on Flagyl and cefepime. Continued on bronchodilators. NicoDerm patch in place. Heparin for DVT prophylaxis. Sodium 133. Potassium 3.8. Bicarb 23. BUN 15. Creatinine 0.36. Glucose 95. The patient is seen today December 22, 2023 and follow-up on the regular medical floor. She is currently awake and alert in no acute distress. Resting comfortably in bed. Continues to maintain good O2 saturation in the 90s on room air. She is afebrile. Hemodynamically stable. Echocardiogram reveals preserved left ventricular systolic function with ejection fraction of 65%. Sodium 133. Potassium 4.1. Bicarb 25. BUN 16. Creatinine 0.40. Glucose 84. Nasogastric tube remains in place. She remains NPO. She is receiving TPN for nutritional support. She is working well with the incentive spirometer. The patient is seen today December 23, 2023 in follow-up on the regular medical floor. She is currently sitting up in bed. Awake and alert in no acute distres s. Feeling stronger each day. She is maintaining O2 saturations in the 90s on room air. Chest x-ray shows evidence of COPD with ongoing small to moderate bilateral pleural effusions with adjacent atelectasis. She is encouraged regarding the increased use of the incentive spirometer. Sodium 136. Potassium 3.8. Bicarb 28. BUN 20. Creatinine 0.47. Glucose 100. Nasogastric tube remains in place. She is being nourished with TPN currently at 52 MLS per hour. She remains on bronchodilators. Antibiotics in the form of Flagyl and cefepime. The patient is seen today December 24, 2023 in follow-up on the regular medical floor. Awake and alert no acute distress. Currently sitting up in bed. Denies any worsening shortness of breath, cough or congestion. Maintaining good O2 saturations in the 90s on room air. Nasogastric tube remains in place. She is being nursed with TPN at 51 mL/h. Remains on antibiotics in the form of cefepime. Ostomy has good output. No abdominal pain. White count 7.2. Hemoglobin 10.0. Platelets 301. Sodium 133. Potassium 3.3. Bicarb 33. BUN 22. Creatinine 0.42. Glucose 85. The patient is seen today December 25, 2019 for follow-up on the regular medical floor. She is sitting up in bed. Awake and alert in no acute distress. Denies any worsening shortness of breath, cough or congestion. She is maintaining good O2 saturations in the 90s on room air. Chest x-ray reveals small bilateral effusions. Evidence of COPD. Nasogastric tube in good position. Right-sided PICC line in place. Follow-up CT scan of the abdomen pelvis revealed decrease in dilated loops of bowel throughout the abdomen compared to previous. Oral contrast extends to the rectum. Dilated bowel to 2.5 cm remains present. No transition point definitively visualized. Correlate for ileus and/or partial bowel obstruction. The gastric tube remains to wall suction. She remains on TPN for nutritional support. Remains on cefepime and Flagyl. Continued on bronchodilators. Sodium 133. Potassium 4.0. Bicarb 30. BUN 21. Creatinine 0.43. Glucose 95. The patient is seen today December 26, 2023 in follow-up on the regular medical floor. She is sitting up in bed. Awake and alert in no acute distress. She is maintaining good O2 saturations in the 90s on room air. Nasogastric tube remains in place. She is receiving TPN at 52 MLS per hour for nutritional support. She is continued on antibiotics in the form of cefepime and Flagyl. He is continued on bronchodilators. NicoDerm patch in place. Count 8.2. Hemoglobin 10.4. Platelets 294. Sodium 133. Potassium 3.7. Bicarb 29. BUN 18. Creatinine 0.42. Glucose 116. Objective - Vital Signs Vital signs: Vital Signs Temp 97.9 F 12/26/23 07:57 Pulse 76 12/26/23 11:55 Resp 14 12/26/23 07:57 BP 188/78 12/26/23 07:57 Pulse Ox 98 12/26/23 07:57 FiO2 30 12/09/23 10:00 Intake & Output 12/25/23 12/26/23 12/26/23 18:59 06:59 18:59 Output Total 100 Balance -100 Output: Gastric Drainage 100 Other: Voiding Method Bedside Commode Bedside Commode Bedside Commode Bedpan Bedpan Bedpan Diaper Diaper Diaper Incontinent # Voids 7 12 # Bowel Movements 0 ABP, PAP, CO, CI - Last Documented Arterial Blood Pressure 119/92 - Exam GENERAL EXAM: Awake, 78-year-old female, resting in bed, on room air, in no apparent distress. HEAD: Normocephalic. EYES: Sluggish reaction of pupils, equal size. NOSE: Clear with pink turbinates. Nasogastric tube secured in place. THROAT: Nasogastric tube secured in place. No erythema or exudates. NECK: No masses, no JVD. CHEST: No chest wall deformity. LUNGS: Equal air entry with faint crackles in the posterior bases. CVS: S1 and S2 normal with no audible murmur, regular rhythm. ABDOMEN: Abdominal dressing dry and intact. Left abdominal ostomy present. Functioning SPINE: No scoliosis or deformity SKIN: No rashes CENTRAL NERVOUS SYSTEM: Sedated, tone is normal in all 4 extremities. EXTREMITIES: There is no peripheral edema. No clubbing, no cyanosis. Peripheral pulses are intact. - Labs CBC & Chem 7: 12/26/23 06:14 12/26/23 06:14 Labs: Abnormal Lab Results - Last 24 Hours (Table) 12/25/23 12/26/23 12/26/23 Range/Units 16:43 00:05 06:02 RBC (4.10-5.20) X 10*6/uL Hgb (12.0-15.0) g/dL Hct (37.2-46.3) % Immature Gran # (0.00-0.04) X 10*3/uL Lymphocytes # (0.90-5.00) X 10*3/uL Eosinophils # (0.04-0.35) X 10*3/uL Sodium (137-145) mmol/L BUN (7-17) mg/dL Creatinine (0.52-1.04) mg/dL Glucose (74-99) mg/dL POC Glucose (mg/dL) 124 H 135 H 120 H (70-110) mg/dL Calcium (8.4-10.2) mg/dL 12/26/23 12/26/23 12/26/23 Range/Units 06:14 06:14 12:24 RBC 3.31 L (4.10-5.20) X 10*6/uL Hgb 10.4 L (12.0-15.0) g/dL Hct 32.1 L (37.2-46.3) % Immature Gran # 0.08 H (0.00-0.04) X 10*3/uL Lymphocytes # 0.82 L (0.90-5.00) X 10*3/uL Eosinophils # 0.01 L (0.04-0.35) X 10*3/uL Sodium 133 L (137-145) mmol/L BUN 18 H (7-17) mg/dL Creatinine 0.42 L (0.52-1.04) mg/dL Glucose 116 H (74-99) mg/dL POC Glucose (mg/dL) 140 H (70-110) mg/dL Calcium 7.8 L (8.4-10.2) mg/dL Assessment and Plan Assessment: Severe acute abdominal pain secondary to perforated sigmoid diverticulitis. Status post exploratory laparotomy, sigmoid colectomy, end colostomy on December 08, 2023. Most recent CT scan of the abdomen reveals ileus versus partial small bowel obstruction. Plan is for conservative management if possible. Nasog astric tube remains in place. Continued on TPN via PICC line Acute hypoxemic respiratory failure secondary to above requiring prolonged ventilation postoperatively, recovered and on room air Severe protein calorie malnutrition with a BMI of less than 20 kg/m History of gastric ulcers and esophagitis History of rheumatoid arthritis History of chronic obstructive pulmonary disease History of chronic tobacco dependence History of hypertension History of hyperlipidemia History of gastroesophageal reflux disease Plan: The patient was seen and evaluated Labs and medications reviewed TPN for nutritional support Nasogastric tube remains in place We will continue to follow I have personally seen and examined the patient, performed the documentation and the assessment and plan as written. Number of minutes spent on the visit: 10.
--- NOTE | 2023-12-26 14:36 | P.PN ---
Subjective Progress Note Date: 12/26/23 CHIEF COMPLAINT: Perforated sigmoid diverticulitis HISTORY OF PRESENT ILLNESS: Patient is status post exploratory laparotomy, sigmoid colectomy and end colostomy on 12/08/23. Patient lying in bed comfortabl y. Patient's pain is controlled. Ostomy functioning. Per nursing staff stool is pasty. They are emptying the ostomy bag every shift. NG tube output 250 mL yesterday. Patient complains of headache this morning. CT scan abdomen pelvis decrease in dilated loops of bowel throughout the abdomen oral contrast extends to the rectum. Correlate for ileus and/or partial bowel obstruction. Afebrile. WBC 8.21 hgb 10.4 plt 294 PHYSICAL EXAM: VITAL SIGNS: Reviewed. GENERAL: Well-developed in no acute distress. ABDOMEN: Nondistended. incision clean dry intact. James in place. Stool present in ostomy bag NEUROLOGIC: Alert and oriented. Cranial nerves II through XII grossly intact. ASSESSMENT: 1. Perforated sigmoid diverticulitis status post exploratory laparotomy, sigmoid colectomy with end colostomy 2. Small bowel obstruction versus ileus after recent surgery 3. Urinary retention resolved 4. Hypokalemia improved PLAN: -Continue NG tube for decompression -Keep patient n.p.o. -Continue TPN for nutrition support -Continue antibiotics -Encourage patient to use incentive spirometer -Encourage patient to increase activity level. Continue to work with PT OT. Patient to to go to [facility] when discharged -GI prophylaxis Protonix DVT prophylaxis subcu heparin Physician Operational Communication Chief note has been reviewed by physician. Signing provider agrees with the documented findings, assessment, and plan of care. I have personally seen and examined the patient, reviewed the MUSIC ASSISTANT /PAs history, e xam and MDM and agree with the assessment and plan as written. Based on total visit time, I have performed more than 50% of the visit. As above: Events over the weekend noted. Patient had a CAT scan 2 days ago that showed improvement in the small bowel dilation. She has been having limited ostomy function with gastric decompression. Denies pain. Today repeat abdominal films show contrast within the colon. No dilated loops of small bowel noted. Will plan nasogastric tube removal and trial of diet. Patient and I discussed that if the patient fails trial of diet we would plan relaparotomy. Patient is agreeable. Will update the patient's daughter by phone. Objective - Vital Signs Vital signs: Vital Signs Temp 97.9 F 12/26/23 07:57 Pulse 76 12/26/23 11:55 Resp 14 12/26/23 07:57 BP 188/78 12/26/23 07:57 Pulse Ox 98 12/26/23 07:57 FiO2 30 12/09/23 10:00 Intake & Output 12/25/23 12/26/23 12/26/23 18:59 06:59 18:59 Output Total 100 Balance -100 Output: Gastric Drainage 100 Other: Voiding Method Bedside Commode Bedside Commode Bedside Commode Bedpan Bedpan Bedpan Diaper Diaper Diaper Incontinent # Voids 7 12 # Bowel Movements 0 ABP, PAP, CO, CI - Last Documented Arterial Blood Pressure 119/92 - Labs CBC & Chem 7: 12/26/23 06:14 12/27/23 06:24 Labs: Abnormal Lab Results - Last 24 Hours (Table) 12/25/23 12/26/23 12/26/23 Range/Units 16:43 00:05 06:02 RBC (4.10-5.20) X 10*6/uL Hgb (12.0-15.0) g/dL Hct (37.2-46.3) % Immature Gran # (0.00-0.04) X 10*3/uL Lymphocytes # (0.90-5.00) X 10*3/uL Eosinophils # (0.04-0.35) X 10*3/uL Sodium (137-145) mmol/L BUN (7-17) mg/dL Creatinine (0.52-1.04) mg/dL Glucose (74-99) mg/dL POC Glucose (mg/dL) 124 H 135 H 120 H (70-110) mg/dL Calcium (8.4-10.2) mg/dL 12/26/23 12/26/23 12/26/23 Range/Units 06:14 06:14 12:24 RBC 3.31 L (4.10-5.20) X 10*6/uL Hgb 10.4 L (12.0-15.0) g/dL Hct 32.1 L (37.2-46.3) % Immature Gran # 0.08 H (0.00-0.04) X 10*3/uL Lymphocytes # 0.82 L (0.90-5.00) X 10*3/uL Eosinophils # 0.01 L (0.04-0.35) X 10*3/uL Sodium 133 L (137-145) mmol/L BUN 18 H (7-17) mg/dL Creatinine 0.42 L (0.52-1.04) mg/dL Glucose 116 H (74-99) mg/dL POC Glucose (mg/dL) 140 H (70-110) mg/dL Calcium 7.8 L (8.4-10.2) mg/dL
[2023-12-26 16:56] LABS: Glucose,Whole Blood 148 mg/dL (70-110)
[2023-12-26] MEDS: MVI, ADULT NO.4 WITH VIT K 10 ML, TRACE (CONC-1ML/DOSE) 1 ML, POTASSIUM CHLORIDE 40 MEQ... IV SCH (18:27)
--- NOTE | 2023-12-26 22:29 | P.PN ---
Subjective Progress Note Date: 12/26/23 This is a 78-year-old female who has been followed by Dr. Elizabeth admitted for perforated sigmoid diverticulitis went for surgical repair/sigmoid colectomy with end colostomy. Patient continues on the medical floor remains n.p.o. with an NG tube in place. Repeat abdominal CT shows concern for complete bowel obstruction there is stool noted in the colostomy. Patient has positive bowel sounds throughout. She continues on antibiotics in the form of IV cefepime and IV Flagyl remains on parenteral nutrition. She received a dose of IV Lasix one- time yesterday. Potassium today 3.3. Sodium 133. 12/25/2023 Patient evaluated today resting in bed. She is reporting some increased abdominal pain and overall not feeling well. She is currently undergoing a repeat abdominal CT scan and has received the contrast. NG tube remains in place currently clamped. She does have positive bowel sounds and has some small amount of brown stool in the ostomy. Patient received a dose of IV Lasix 2 days ago for the small bilateral pleural effusions which are essentially stable at this time. Her sodium level is 133. Remains on TPN. 12/26/2023 Patient evaluated today resting in bed. She continues to report abdominal discomfort and today states that she feels nauseous. Zofran has been ordered. There continues to be a small amount of stool in the ostomy bag. A repeat abdominal pelvis CT was completed showing decrease in dilated loops of bowel throughout the abdomen comparing to immediate priors. Oral contrast extends to the rectum correlate for ileus and/or partial bowel obstruction. NG tube rem ains in place with output of 100 MLS overnight of gastric drainage. Patient remains on IV Flagyl and IV cefepime. Remains on TPN. Review of Systems Constitutional: Denied any fatigue denied any fever. Cardio vascular: denied any chest pain, palpitations Gastrointestinal: denied any nausea, vomiting, diarrhea Pulmonary: Denied any shortness of breath cough Neurologic denied any new focal deficits All inpatient medications were reviewed and appropriate changes in these medications as dictated in the interval history and assessment and plan. PHYSICAL EXAMINATION: GENERAL: The patient is alert and oriented x3, not in any acute distress. Well developed, well nourished. HEENT: Pupils are round and equally reacting to light. EOMI. No scleral icterus. No conjunctival pallor. Normocephalic, atraumatic. No pharyngeal erythema. No thyromegaly. CARDIOVASCULAR: S1 and S2 present. No murmurs, rubs, or gallops. PULMONARY: Chest is clear to auscultation, no wheezing or crackles. ABDOMEN: Soft, nontender, nondistended, normoactive bowel sounds. No palpable organomegaly. NG tube in place. Midline dressing intact. ostomy present left lower quad with brown liquid stool in ostomy. MUSCULOSKELETAL: No joint swelling or deformity. EXTREMITIES: No cyanosis, clubbing, or pedal edema. NEUROLOGICAL: Gross neurological examination did not reveal any focal deficits. SKIN: No rashes. Assessment and plan: -Acute sigmoid diverticulitis with perforation status post sigmoid resection and colostomy formation on December 08, cultures growing E. coli and alphahemolytic Streptococcus continues on antibiotics in the form of IV cefepime and IV Flagyl. -Bowel obstruction vs ileus postoperatively NG tube in place. -Anterior chest wall pain. Non-ST elevation HI. Type II. -hypertensive heart disease. Severe LVH on echo. -Bilateral pleural effusions received a dose of IV Lasix, -Severe hypokalemia: resolved, continue to monitor and supplement per protocol -Secondary peritonitis from hollow viscus perforation, IV cefepime and IV Flagyl. ID following -COPD and a current smoker continue current home regimen -Chronic nicotine dependence, cigarette smoker -Hyperlipidemia -Severe protein calorie malnutrition. BMI 18.3. -Chronic muscle spasm -Peptic ulcer disease -Essential hypertension. GI prophylaxis DVT prophylaxis Full Code Continue with incentive spirometer 10 x an hour while awake, continue on TPN through PICC line. Patient remains NPO. Continue antibiotics. Recommend to r epeat labs in the morning and encourage increasing activity level. Pulmonary and infectious disease are following. The impression and plan of care has been dictated by Alee Landis Nurse Practitioner as directed. Dr. Ferdinand MD I have performed a history and physical examination and medical decision making of this patient, discussed the same with the dictator, and agree with the dictators assessment and plan as written, documented as a scribe. Based on total visit time, I have performed more than 50% of this visit. Objective - Vital Signs Vital signs: Vital Signs Temp 97.9 F 12/26/23 07:57 Pulse 75 12/26/23 07:57 Resp 14 12/26/23 07:57 BP 188/78 12/26/23 07:57 Pulse Ox 98 12/26/23 07:57 FiO2 30 12/09/23 10:00 Intake & Output 12/25/23 12/26/23 12/26/23 18:59 06:59 18:59 Output Total 100 Balance -100 Output: Gastric Drainage 100 Other: Voiding Method Bedside Commode Bedside Commode Bedpan Bedpan Diaper Diaper Incontinent # Voids 7 12 # Bowel Movements 0 ABP, PAP, CO, CI - Last Documented Arterial Blood Pressure 119/92 - Labs CBC & Chem 7: 12/26/23 06:14 12/26/23 06:14 Labs: Abnormal Lab Results - Last 24 Hours (Table) 12/25/23 12/25/23 12/26/23 Range/Units 11:56 16:43 00:05 RBC (4.10-5.20) X 10*6/uL Hgb (12.0-15.0) g/dL Hct (37.2-46.3) % Immature Gran # (0.00-0.04) X 10*3/uL Lymphocytes # (0.90-5.00) X 10*3/uL Eosinophils # (0.04-0.35) X 10*3/uL Sodium (137-145) mmol/L BUN (7-17) mg/dL Creatinine (0.52-1.04) mg/dL Glucose (74-99) mg/dL POC Glucose (mg/dL) 116 H 124 H 135 H (70-110) mg/dL Calcium (8.4-10.2) mg/dL 12/26/23 12/26/23 12/26/23 Range/Units 06:02 06:14 06:14 RBC 3.31 L (4.10-5.20) X 10*6/uL Hgb 10.4 L (12.0-15.0) g/dL Hct 32.1 L (37.2-46.3) % Immature Gran # 0.08 H (0.00-0.04) X 10*3/uL Lymphocytes # 0.82 L (0.90-5.00) X 10*3/uL Eosinophils # 0.01 L (0.04-0.35) X 10*3/uL Sodium 133 L (137-145) mmol/L BUN 18 H (7-17) mg/dL Creatinine 0.42 L (0.52-1.04) mg/dL Glucose 116 H (74-99) mg/dL POC Glucose (mg/dL) 120 H (70-110) mg/dL Calcium 7.8 L (8.4-10.2) mg/dL Assessment and Plan Time with Patient: Less than 30
[2023-12-27 01:01] LABS: Glucose,Whole Blood 134 mg/dL (70-110)
[2023-12-27 06:30] LABS: Glucose,Whole Blood 125 mg/dL (70-110)
[2023-12-27 07:56] LABS: African American GFR (CKD) >90 (>60 ml/min/1.73 sqM); Anion Gap -1 mmol/L; Blood Urea Nitrogen 27 mg/dL (7-17); Calcium 7.7 mg/dL (8.4-10.2); Carbon Dioxide 27 mmol/L (22-30); Chloride 106 mmol/L (98-107); Glucose 99 mg/dL (74-99); Non-African American GFR(CKD) >90 (>60 ml/min/1.73 sqM); Phosphorus 3.5 mg/dL (2.5-4.5); Sodium 132 mmol/L (137-145)
--- NOTE | 2023-12-27 09:46 | XR ---
EXAMINATION TYPE: XR abdomen complete w decub DATE OF EXAM: 12/27/2023 COMPARISON: 12/20/2023, 12/25/2019 HISTORY: Pain TECHNIQUE: Supine, upright, and left side down lateral decubitus views of the abdomen are obtained. FINDINGS: There is bilateral lower lobe infiltrate. NG tube seen overlying the left upper quadrant likely withi n the stomach. Surgical maurizio are seen is contrast seen within the bowel. Overall bowel gas pattern is nonspecific with contrast seen now to extend into the left colon. Patchy areas of air seen along the left abdomen. This could represent subcutaneous or free intraperitoneal air. Surgical changes are seen in the pelvis. There is a linear tubular density in the left hemipelvis of uncertain etiology. Report was called to the patient's nurse at 9:43 AM 12/27/2023. IMPRESSION: 1. There now is multiple air densities seen along the left abdominal sidewall on the frontal view not well seen on the decubitus view. Recommend CT scan to determine if this is free intraperitoneal air or subcutaneous air.
--- NOTE | 2023-12-27 10:44 | XR ---
EXAMINATION TYPE: XR abdomen 1V DATE OF EXAM: 12/27/2023 COMPARISON: 12/27/2023 HISTORY: Abnormal x-ray TECHNIQUE: One view abdominal series FINDINGS: The osseous structures are intact. Contrast is seen to the level the left colon produce dilation of t he bowel. NG tube apparently has been removed. The abnormal subcutaneous or soft tissue air noted on the prior exam is not seen on the current exam and likely represented air within the ostomy bag. Surgical maurizio are seen within bilateral hip arthropathy, previous surgery and scoliosis of the spi ne with degenerative changes. Small bilateral pleural effusion and basilar compressive atelectasis favored over pneumonia. IMPRESSION: 1. Air noted on recent exam appears to have been superficial to the patient and likely within the ost ronald bag. 2. Contrast stenosis is seen to extend into the colon. 3. Small bilateral pleural effusion.
[2023-12-27] MEDS: CEFEPIME 2 GM in SODIUM CHLORIDE 0.9% 100 ML IVPB SCH (11:28)
--- NOTE | 2023-12-27 11:43 | P.PN ---
Subjective Progress Note Date: 12/27/23 The patient is seen today December 19, 2023 and follow-up on the regular medical floor. She is currently sitting up in bed. Awake and alert in no acute distress. She is maintaining O2 saturations in the 90s on room air. Nasogastric tube remains in place. Still having some mild abdominal discomfort. Ostomy with minimal output. Mild bloating. CT scan of the abdomen from yesterday revealed redemonstrated and overall stable appearance of findings concerning for small bowel obstruction with dilated small bowel loops and suspected transition point within the lower abdomen. No contrast is visualized extending into the colon. No plans for surgery at this point. Continuing conservative management per surgical services. Plan is for PICC line placement and to be transitioned to TPN. White count 11.5. Hemoglobin 10.9. Platelets 383. Sodium 133. Potassium 3.1. Bicarb 30. BUN 13. Creatinine 0.59. Glucose 102. Troponin 0.167, 0.174. Cardiology has been consulted. The patient is seen today December 20, 2023 in follow-up on the regular medical floor. She is awake and alert in no acute distress. She is sitting up in bed. She is maintaining O2 saturations in the 90s on room air. Nasogastric tube remains in place. She remains nothing by mouth. Abdominal x-ray today reveals gastric tube in appropriate position. No dilated loops of bowel identified. TPN at 30 MLS per hour for nutritional support. She remains on Flagyl and cefepime. White count 9.2. Hemoglobin 9.7. Platelets 322. Sodium 133. Potassium 2.9. Bicarb 27. BUN 12. Creatinine 0.47. Glucose 125. The patient is seen today December 21, 2023 in follow-up on the regular medical floor. She is sitting up in bed. Awake and alert in no acute distress. Nasogastric tube remains in place. She denies any worsening abdominal discomfort. Ostomy is functioning. She remains on TPN at 30 MLS per hour for nutritional support. Continued on Flagyl and cefepime. Continued on bronchodilators. NicoDerm patch in place. Heparin for DVT prophylaxis. Sodium 133. Potassium 3.8. Bicarb 23. BUN 15. Creatinine 0.36. Glucose 95. The patient is seen today December 22, 2023 and follow-up on the regular medical floor. She is currently awake and alert in no acute distress. Resting comfortably in bed. Continues to maintain good O2 saturation in the 90s on room air. She is afebrile. Hemodynamically stable. Echocardiogram reveals preserved left ventricular systolic function with ejection fraction of 65%. Sodium 133. Potassium 4.1. Bicarb 25. BUN 16. Creatinine 0.40. Glucose 84. Nasogastric tube remains in place. She remains NPO. She is receiving TPN for nutritional support. She is working well with the incentive spirometer. The patient is seen today December 23, 2023 in follow-up on the regular medical floor. She is currently sitting up in bed. Awake and alert in no acute distres s. Feeling stronger each day. She is maintaining O2 saturations in the 90s on room air. Chest x-ray shows evidence of COPD with ongoing small to moderate bilateral pleural effusions with adjacent atelectasis. She is encouraged regarding the increased use of the incentive spirometer. Sodium 136. Potassium 3.8. Bicarb 28. BUN 20. Creatinine 0.47. Glucose 100. Nasogastric tube remains in place. She is being nourished with TPN currently at 52 MLS per hour. She remains on bronchodilators. Antibiotics in the form of Flagyl and cefepime. The patient is seen today December 24, 2023 in follow-up on the regular medical floor. Awake and alert no acute distress. Currently sitting up in bed. Denies any worsening shortness of breath, cough or congestion. Maintaining good O2 saturations in the 90s on room air. Nasogastric tube remains in place. She is being nursed with TPN at 51 mL/h. Remains on antibiotics in the form of cefepime. Ostomy has good output. No abdominal pain. White count 7.2. Hemoglobin 10.0. Platelets 301. Sodium 133. Potassium 3.3. Bicarb 33. BUN 22. Creatinine 0.42. Glucose 85. The patient is seen today December 25, 2019 for follow-up on the regular medical floor. She is sitting up in bed. Awake and alert in no acute distress. Denies any worsening shortness of breath, cough or congestion. She is maintaining good O2 saturations in the 90s on room air. Chest x-ray reveals small bilateral effusions. Evidence of COPD. Nasogastric tube in good position. Right-sided PICC line in place. Follow-up CT scan of the abdomen pelvis revealed decrease in dilated loops of bowel throughout the abdomen compared to previous. Oral contrast extends to the rectum. Dilated bowel to 2.5 cm remains present. No transition point definitively visualized. Correlate for ileus and/or partial bowel obstruction. The gastric tube remains to wall suction. She remains on TPN for nutritional support. Remains on cefepime and Flagyl. Continued on bronchodilators. Sodium 133. Potassium 4.0. Bicarb 30. BUN 21. Creatinine 0.43. Glucose 95. The patient is seen today December 26, 2023 in follow-up on the regular medical floor. She is sitting up in bed. Awake and alert in no acute distress. She is maintaining good O2 saturations in the 90s on room air. Nasogastric tube remains in place. She is receiving TPN at 52 MLS per hour for nutritional support. She is continued on antibiotics in the form of cefepime and Flagyl. He is continued on bronchodilators. NicoDerm patch in place. Count 8.2. Hemoglobin 10.4. Platelets 294. Sodium 133. Potassium 3.7. Bicarb 29. BUN 18. Creatinine 0.42. Glucose 116. The patient is seen today December 27, 2023 in follow-up on the regular medical floor. She is currently resting comfortably in bed. Awake and alert in no acute distress. Maintaining O2 saturations in the 90s on room air. She is continued to have intermittent abdominal discomfort. Abdominal x-ray reveals that the air noted on the previous exam appeared to be superficial to the patient and likely within the ostomy bag. Contrast stenosis is seen to extend into the colon. Small bilateral pleural effusions. Nasogastric tube has been removed. Sodium 132. Potassium 5.0. Bicarb 27. BUN 27. Creatinine 0.55. Glucose 125. He remains on antibiotics in the form of cefepime and Flagyl. Continued on bronchodilators. NicoDerm patch in place. Heparin for DVT prophylaxis. Objective - Vital Signs Vital signs: Vital Signs Temp 97.6 F 12/27/23 07:17 Pulse 68 12/27/23 07:17 Resp 18 12/27/23 07:17 BP 100/50 12/27/23 07:17 Pulse Ox 99 12/27/23 07:17 FiO2 30 12/09/23 10:00 Intake & Output 12/26/23 12/27/23 12/27/23 18:59 06:59 18:59 Intake Total 350 Output Total 100 100 Balance -100 250 Weight 41.1 kg 38.8 kg Intake: Intake, IV Titration 350 Amount Fat Emulsion 20% 250 ml @ 250 20.833 mls/hr IV MoTh@ 1400 ANN Rx#:[id number] metroNIDAZOLE-NS PMX 500 100 mg In Saline 1 100ml.bag @ 100 mls/hr IVPB Q8HR ANN Rx#:[id number] Oral 0 Output: Gastric Drainage 100 100 Urine 0 Other: Voiding Method Bedside Commode Toilet Toilet Bedpan Bedside Commode Bedside Commode Diaper Bedpan Bedpan Diaper Diaper # Voids 3 1 ABP, PAP, CO, CI - Last Documented Arterial Blood Pressure 119/92 - Exam GENERAL EXAM: Awake, 78-year-old female, on room air, in no apparent distress. HEAD: Normocephalic. EYES: Sluggish reaction of pupils, equal size. NOSE: Clear with pink turbinates. Nasogastric tube removed. THROAT: Nasogastric tube secured in place. No erythema or exudates. NECK: No masses, no JVD. CHEST: No chest wall deformity. LUNGS: Equal air entry with faint crackles in the posterior bases. CVS: S1 and S2 normal with no audible murmur, regular rhythm. ABDOMEN: Abdominal dressing dry and intact. Left abdominal ostomy present. Functioning SPINE: No scoliosis or deformity SKIN: No rashes CENTRAL NERVOUS SYSTEM: Sedated, tone is normal in all 4 extremities. EXTREMITIES: There is no peripheral edema. No clubbing, no cyanosis. Peripheral pulses are intact. - Labs CBC & Chem 7: 12/26/23 06:14 12/27/23 06:24 Labs: Abnormal Lab Results - Last 24 Hours (Table) 12/26/23 12/26/23 12/27/23 Range/Units 12:24 16:48 00:57 Sodium (137-145) mmol/L BUN (7-17) mg/dL POC Glucose (mg/dL) 140 H 148 H 134 H (70-110) mg/dL Calcium (8.4-10.2) mg/dL 12/27/23 12/27/23 Range/Units 06:24 06:24 Sodium 132 L (137-145) mmol/L BUN 27 H (7-17) mg/dL POC Glucose (mg/dL) 125 H (70-110) mg/dL Calcium 7.7 L (8.4-10.2) mg/dL Assessment and Plan Assessment: Severe acute abdominal pain secondary to perforated sigmoid diverticulitis. Status post exploratory laparotomy, sigmoid colectomy, end colostomy on December 08, 2023. Most recent CT scan of the abdomen reveals ileus versus partial small bowel obstruction. Plan is for conservative management. Nasogastric tube removed today. Continued on TPN via PICC line Acute hypoxemic respiratory failure secondary to above requiring prolonged ventilation postoperatively, recovered and on room air Severe protein calorie malnutrition with a BMI of less than 20 kg/m History of gastric ulcers and esophagitis History of rheumatoid arthritis History of chronic obstructive pulmonary disease History of chronic tobacco dependence History of hypertension History of hyperlipidemia History of gastroesophageal reflux disease Plan: The patient was seen and evaluated Abdominal x-rays, labs and medications reviewed Nasogastric tube removed TPN for nutritional support We will continue to follow I have personally seen and examined the patient, performed the documentation and the assessment and plan as written. Number of minutes spent on the visit: 10.
[2023-12-27 12:04] LABS: Glucose,Whole Blood 110 mg/dL (70-110)
[2023-12-27 13:31] LABS: Magnesium 2.1 mg/dL (1.5-2.4)
[2023-12-27] MEDS: MVI, ADULT NO.4 WITH VIT K 10 ML, TRACE (CONC-1ML/DOSE) 1 ML, POTASSIUM CHLORIDE 20 MEQ... IV SCH (15:09)
--- NOTE | 2023-12-27 15:47 | P.PN ---
Subjective Progress Note Date: 12/27/23 CHIEF COMPLAINT: Perforated sigmoid diverticulitis HISTORY OF PRESENT ILLNESS: Patient is status post exploratory laparotomy, sigmoid colectomy and end colostomy on 12/08/23. Patient sitting at bedside gigi liu. She denies any abdominal pain. Denies any nausea. Patient having stool from her ostomy. Patient had abdominal x-ray that initially reported multiple air densities seen along the left abdominal sidewall. Repeat abdominal x-ray done without ostomy bag in place and report states area noted on recent exam appears to have been superficial to the patient and likely within the ostomy bag. Contrast is seen to extend into the colon. Afebrile. PHYSICAL EXAM: VITAL SIGNS: Reviewed. GENERAL: Well-developed in no acute distress. ABDOMEN: Nondistended. incision clean dry intact. James in place. Stool present in ostomy bag NEUROLOGIC: Alert and oriented. Cranial nerves II through XII grossly intact. ASSESSMENT: 1. Perforated sigmoid diverticulitis status post exploratory laparotomy, sig moid colectomy with end colostomy 2. Small bowel obstruction versus ileus after recent surgery 3. Urinary retention resolved 4. Hypokalemia improved PLAN: -Discontinue NG tube -Trial clear liquid diet. If patient fails diet would plan for laparotomy -Continue TPN for nutrition support -Continue antibiotics -Encourage patient to use incentive spirometer -Encourage patient to increase activity level. -Patient will require ECF at discharge -GI prophylaxis Protonix DVT prophylaxis subcu heparin Physician Animal Ride Manager note has been reviewed by physician. Signing provider agrees with the documented findings, assessment, and plan of care. Objective - Vital Signs Vital signs: Vital Signs Temp 97.6 F 12/27/23 07:17 Pulse 76 12/27/23 12:05 Resp 18 12/27/23 07:17 BP 100/50 12/27/23 07:17 Pulse Ox 99 12/27/23 07:17 FiO2 30 12/09/23 10:00 Intake & Output 12/26/23 12/27/23 12/27/23 18:59 06:59 18:59 Intake Total 350 Output Total 100 100 Balance -100 250 Weight 41.1 kg 38.8 kg Intake: Intake, IV Titration 350 Amount Fat Emulsion 20% 250 ml @ 250 20.833 mls/hr IV MoTh@ 1400 [facility] Rx#:[id number] metroNIDAZOLE-NS PMX 500 100 mg In Saline 1 100ml.bag @ 100 mls/hr IVPB Q8HR [facility] Rx#:[id number] Oral 0 Output: Gastric Drainage 100 100 Urine 0 Other: Voiding Method Bedside Commode Toilet Toilet Bedpan Bedside Commode Bedside Commode Diaper Bedpan Bedpan Diaper Diaper # Voids 3 1 ABP, PAP, CO, CI - Last Documented Arterial Blood Pressure 119/92 - Labs CBC & Chem 7: 12/26/23 06:14 12/27/23 06:24 Labs: Abnormal Lab Results - Last 24 Hours (Table) 12/26/23 12/27/23 12/27/23 Range/Units 16:48 00:57 06:24 Sodium 132 L (137-145) mmol/L BUN 27 H (7-17) mg/dL POC Glucose (mg/dL) 148 H 134 H (70-110) mg/dL Calcium 7.7 L (8.4-10.2) mg/dL 12/27/23 Range/Units 06:24 Sodium (137-145) mmol/L BUN (7-17) mg/dL POC Glucose (mg/dL) 125 H (70-110) mg/dL Calcium (8.4-10.2) mg/dL
--- NOTE | 2023-12-27 15:47 | P.PN ---
Subjective Progress Note Date: 12/27/23 This is a 78-year-old female who has been followed by Dr. Elizabeth admitted for perforated sigmoid diverticulitis went for surgical repair/sigmoid colectomy with end colostomy. Patient continues on the medical floor remains n.p.o. with an NG tube in place. Repeat abdominal CT shows concern for complete bowel obstruction there is stool noted in the colostomy. Patient has positive bowel sounds throughout. She continues on antibiotics in the form of IV cefepime and IV Flagyl remains on parenteral nutrition. She received a dose of IV Lasix one- time yesterday. Potassium today 3.3. Sodium 133. 12/25/2023 Patient evaluated today resting in bed. She is reporting some increased abdominal pain and overall not feeling well. She is currently undergoing a repeat abdominal CT scan and has received the contrast. NG tube remains in place currently clamped. She does have positive bowel sounds and has some small amount of brown stool in the ostomy. Patient received a dose of IV Lasix 2 days ago for the small bilateral pleural effusions which are essentially stable at this time. Her sodium level is 133. Remains on TPN. 12/26/2023 Patient evaluated today resting in bed. She continues to report abdominal discomfort and today states that she feels nauseous. Zofran has been ordered. There continues to be a small amount of stool in the ostomy bag. A repeat abdominal pelvis CT was completed showing decrease in dilated loops of bowel throughout the abdomen comparing to immediate priors. Oral contrast extends to the rectum correlate for ileus and/or partial bowel obstruction. NG tube rem ains in place with output of 100 MLS overnight of gastric drainage. Patient remains on IV Flagyl and IV cefepime. Remains on TPN. 12/27/2023 Patient is evaluated today sitting up at the bedside. She is continue to have stool through the ostomy. NG tube has removed today and patient is started on clear liquid diet. He remains hyponatremic this is likely from the TPN. Remains on IV cefepime and IV Flagyl. She reports that her nausea has resolved. Review of Systems Constitutional: Denied any fatigue denied any fever. Cardio vascular: denied any chest pain, palpitations Gastrointestinal: denied any nausea, vomiting, diarrhea Pulmonary: Denied any shortness of breath cough Neurologic denied any new focal deficits All inpatient medications were reviewed and appropriate changes in these medications as dictated in the interval history and assessment and plan. PHYSICAL EXAMINATION: GENERAL: The patient is alert and oriented x3, not in any acute distress. Well developed, well nourished. HEENT: Pupils are round and equally reacting to light. EOMI. No scleral icterus. No conjunctival pallor. Normocephalic, atraumatic. No pharyngeal erythema. No thyromegaly. CARDIOVASCULAR: S1 and S2 present. No murmurs, rubs, or gallops. PULMONARY: Chest is clear to auscultation, no wheezing or crackles. ABDOMEN: Soft, nontender, nondistended, normoactive bowel sounds. No palpable organomegaly. NG tube in place. Midline dressing intact. ostomy present left lower quad with brown liquid stool in ostomy. MUSCULOSKELETAL: No joint swelling or deformity. EXTREMITIES: No cyanosis, clubbing, or pedal edema. NEUROLOGICAL: Gross neurological examination did not reveal any focal deficits. SKIN: No rashes. Assessment and plan: -Acute sigmoid diverticulitis with perforation status post sigmoid resection and colostomy formation on December 08, cultures growing E. coli and alphahemolytic Streptococcus continues on antibiotics in the form of IV cefepime and IV Flagyl. -Bowel obstruction vs ileus improved and NG tube has been removed patient is started on clear liquid diet -Anterior chest wall pain. Non-ST elevation [place]. Type II. -hypertensive heart disease. Severe LVH on echo. -Bilateral pleural effusions received a dose of IV Lasix, monitoring off of diuretic -Severe hypokalemia: resolved, continue to monitor and supplement per protocol -Secondary peritonitis from hollow viscus perforation, IV cefepime and IV Flagyl. ID following -COPD and a current smoker continue current home regimen -Chronic nicotine dependence, cigarette smoker -Hyperlipidemia -Severe protein calorie malnutrition. BMI 18.3. -Chronic muscle spasm -Peptic ulcer disease -Essential hypertension. GI prophylaxis DVT prophylaxis Full Code Continue with incentive spirometer 10 x an hour while awake, continue on TPN through PICC line. Patient remains NPO. Continue antibiotics. Recommend to repeat labs in the morning and encourage increasing activity level. Pulmonary and infectious disease are following. The impression and plan of care has been dictated by Alee Landis Nurse Practitioner as directed. Dr. Ferdinand MD I have performed a history and physical examination and medical decision making of this patient, discussed the same with the dictator, and agree with the dictators assessment and plan as written, documented as a scribe. Based on total visit time, I have performed more than 50% of this visit. Objective - Vital Signs Vital signs: Vital Signs Temp 97.6 F 12/27/23 07:17 Pulse 76 12/27/23 12:05 Resp 18 12/27/23 07:17 BP 100/50 12/27/23 07:17 Pulse Ox 99 12/27/23 07:17 FiO2 30 12/09/23 10:00 Intake & Output 12/26/23 12/27/23 12/27/23 18:59 06:59 18:59 Intake Total 350 Output Total 100 100 Balance -100 250 Weight 41.1 kg 38.8 kg Intake: Intake, IV Titration 350 Amount Fat Emulsion 20% 250 ml @ 250 20.833 mls/hr IV MoTh@ 1400 [facility] Rx#:[id number] metroNIDAZOLE-NS PMX 500 100 mg In Saline 1 100ml.bag @ 100 mls/hr IVPB Q8HR [facility] Rx#:[id number] Oral 0 Output: Gastric Drainage 100 100 Urine 0 Other: Voiding Method Bedside Commode Toilet Toilet Bedpan Bedside Commode Bedside Commode Diaper Bedpan Bedpan Diaper Diaper # Voids 3 1 ABP, PAP, CO, CI - Last Documented Arterial Blood Pressure 119/92 - Labs CBC & Chem 7: 12/26/23 06:14 12/27/23 06:24 Labs: Abnormal Lab Results - Last 24 Hours (Table) 12/26/23 12/27/23 12/27/23 Range/Units 16:48 00:57 06:24 Sodium 132 L (137-145) mmol/L BUN 27 H (7-17) mg/dL POC Glucose (mg/dL) 148 H 134 H (70-110) mg/dL Calcium 7.7 L (8.4-10.2) mg/dL 12/27/23 Range/Units 06:24 Sodium (137-145) mmol/L BUN (7-17) mg/dL POC Glucose (mg/dL) 125 H (70-110) mg/dL Calcium (8.4-10.2) mg/dL Assessment and Plan Time with Patient: Less than 30
[2023-12-27 16:43] LABS: Glucose,Whole Blood 104 mg/dL (70-110)
--- NOTE | 2023-12-27 21:54 | P.PN ---
Subjective Progress Note Date: 12/27/23 Principal diagnosis: Reason for follow-up is perforated diverticulitis and abscess Patient is a 78-year-old female with a past medical history significant for COPD hypertension rheumatoid arthritis presenting to the ER for evaluation of epigastric abdominal pain, patient did have a CT abdominal pelvis concerning for free subsequently taken to the OR status post laparotomy with evidence of perforated sigmoid diverticulitis status post sigmoid colectomy and end colostomy. On today's evaluation that is 12/27/2023, the patient continues to be afebrile, the patient is on room air and breathing comfortably, The patient denies having any chest pain has been complaining of cough but no worsening, the patient denies having any abdominal pain no vomiting and NG has been discontinued did have output in her colostomy bag. Patient did have a creatinine 0.55 no CBC was done today her white count was normal as of yesterday Objective - Vital Signs Vital signs: Vital Signs Temp 97.4 F L 12/27/23 19:27 Pulse 70 12/27/23 21:06 Resp 18 12/27/23 19:27 BP 134/58 12/27/23 19:27 Pulse Ox 100 12/27/23 19:27 FiO2 30 12/09/23 10:00 Intake & Output 12/27/23 12/27/23 12/28/23 06:59 18:59 06:59 Intake Total 350 Output Total 100 Balance 250 Weight 38.8 kg Intake: Intake, IV Titration 350 Amount Fat Emulsion 20% 250 ml @ 250 20.833 mls/hr IV MoTh@ 1400 [facility] Rx#:[id number] metroNIDAZOLE-NS PMX 500 100 mg In Saline 1 100ml.bag @ 100 mls/hr IVPB Q8HR [facility] Rx#:[id number] Oral 0 Output: Gastric Drainage 100 Urine 0 Other: Voiding Method Toilet Toilet Bedside Commode Bedside Commode Bedpan Bedpan Diaper Diaper # Voids 3 1 ABP, PAP, CO, CI - Last Documented Arterial Blood Pressure 119/92 - Exam GENERAL DESCRIPTION: An elderly female lying in bed in no distress RESPIRATORY SYSTEM: Unlabored breathing , decreased breath sounds at bases HEART: S1 S2 regular rate and rhythm , ABDOMEN: Soft , mild tenderness EXTREMITIES: No edema feet - Labs CBC & Chem 7: 12/26/23 06:14 12/27/23 06:24 Labs: Abnormal Lab Results - Last 24 Hours (Table) 12/27/23 12/27/23 12/27/23 Range/Units 00:57 06:24 06:24 Sodium 132 L (137-145) mmol/L BUN 27 H (7-17) mg/dL POC Glucose (mg/dL) 134 H 125 H (70-110) mg/dL Calcium 7.7 L (8.4-10.2) mg/dL Assessment and Plan (1) Intra-abdominal abscess Current Visit: Yes Status: Acute Code(s): K65.1 - PERITONEAL ABSCESS SNOMED Code(s): 50287075 (2) Allergy to multiple antibiotics Current Visit: Yes Status: Acute Code(s): Z88.1 - ALLERGY STATUS TO OTHER ANTIBIOTIC AGENTS SNOMED Code(s): 535862745 (3) Perforated viscus Current Visit: Yes Status: Acute Code(s): R19.8 - OTH SYMPTOMS AND SIGNS INVOLVING THE DGSTV SYS AND ABDOMEN SNOMED Code(s): 093288241 Plan: 1patient presented to hospital with abdominal pain has been diagnosed with a perforated viscus in this patient was status post laparotomy with evidence of perforated sigmoid diverticulitis status post laparotomy sigmoid colectomy and end colostomy for likely organism need to cover will be enteric gram-negative both aerobes and anaerobes 2-patient did have repeat CT has with evidence of partial versus complete bowel obstruction NG has been placed which the patient has been tolerating 3-the patient remains to be afebrile, white count has been normal, patient did have a follow-up CT on 12/25/2023 and it shows improvement in the bowel dilatation pattern no abscess 4-patient slowly clinically improving and will continue with cefepime and Flagyl and monitor clinical course closely Dictation was produced using [employer] dictation software. please excuse any grammatical, word or spelling errors. Time with Patient: Less than 30
[2023-12-27 23:30] LABS: Glucose,Whole Blood 167 mg/dL (70-110)
[2023-12-28 05:44] LABS: Glucose,Whole Blood 115 mg/dL (70-110)
[2023-12-28] MEDS: PANTOPRAZOLE 40 MG TABLET PO SCH (06:42)
[2023-12-28 07:33] LABS: African American GFR (CKD) >90 (>60 ml/min/1.73 sqM); Anion Gap -1 mmol/L; Blood Urea Nitrogen 27 mg/dL (7-17); Carbon Dioxide 26 mmol/L (22-30); Chloride 107 mmol/L (98-107); Glucose 83 mg/dL (74-99); Magnesium 2.2 mg/dL (1.6-2.3); Non-African American GFR(CKD) >90 (>60 ml/min/1.73 sqM); Phosphorus 3.8 mg/dL (2.5-4.5); Sodium 132 mmol/L (137-145)
[2023-12-28 11:40] LABS: Glucose,Whole Blood 94 mg/dL (70-110)
--- NOTE | 2023-12-28 12:10 | P.PN ---
Subjective Progress Note Date: 12/28/23 Principal diagnosis: Reason for follow-up is perforated diverticulitis and abscess Patient is a 78-year-old female with a past medical history significant for COPD hypertension rheumatoid arthritis presenting to the ER for evaluation of epigastric abdominal pain, patient did have a CT abdominal pelvis concerning for free subsequently taken to the OR status post laparotomy with evidence of perforated sigmoid diverticulitis status post sigmoid colectomy and end colostomy. On today's evaluation that is 12/28/2023, Patient is afebrile patient is currently on room air and denies having any shortness of breath, the patient denies any chest pain did have occasional cough, the patient denies any nausea vomiting, NG has been discussed with the patient started on clear liquid the patient has been tolerating abdominal pain controlled with the current medication he did have output in her colostomy. Patient did have a creatinine 0.46 Objective - Vital Signs Vital signs: Vital Signs Temp 97.4 F L 12/28/23 07:14 Pulse 74 12/28/23 09:06 Resp 18 12/28/23 08:00 BP 120/57 12/28/23 07:14 Pulse Ox 99 12/28/23 07:14 FiO2 30 12/09/23 10:00 Intake & Output 12/27/23 12/28/23 12/28/23 18:59 06:59 18:59 Intake Total 300 Output Total 100 Balance 200 Weight 39.5 kg Intake: Oral 300 Output: Urine 0 Stool 100 Other: Voiding Method Toilet Toilet Bedside Commode Bedside Commode Bedpan Bedpan Diaper Diaper # Voids 1 2 2 ABP, PAP, CO, CI - Last Documented Arterial Blood Pressure 119/92 - Exam GENERAL DESCRIPTION: An elderly female lying in bed in no distress RESPIRATORY SYSTEM: Unlabored breathing , decreased breath sounds at bases HEART: S1 S2 regular rate and rhythm , ABDOMEN: Soft , mild tenderness EXTREMITIES: No edema feet - Labs CBC & Chem 7: 12/26/23 06:14 12/28/23 05:41 Labs: Abnormal Lab Results - Last 24 Hours (Table) 12/27/23 12/28/23 12/28/23 Range/Units 23:28 05:41 05:42 Sodium 132 L (137-145) mmol/L BUN 27 H (7-17) mg/dL Creatinine 0.46 L (0.52-1.04) mg/dL POC Glucose (mg/dL) 167 H 115 H (70-110) mg/dL Calcium 8.0 L (8.4-10.2) mg/dL Assessment and Plan (1) Intra-abdominal abscess Current Visit: Yes Status: Acute Code(s): K65.1 - PERITONEAL ABSCESS SNOMED Code(s): 50839855 (2) Allergy to multiple antibiotics Current Visit: Yes Status: Acute Code(s): Z88.1 - ALLERGY STATUS TO OTHER ANTIBIOTIC AGENTS SNOMED Code(s): 961133200 (3) Perforated viscus Current Visit: Yes Status: Acute Code(s): R19.8 - OTH SYMPTOMS AND SIGNS INVOLVING THE DGSTV SYS AND ABDOMEN SNOMED Code(s): 124404866 Plan: 1patient presented to hospital with abdominal pain has been diagnosed with a perforated viscus in this patient was status post laparotomy with evidence of perforated sigmoid diverticulitis status post laparotomy sigmoid colectomy and end colostomy for likely organism need to cover will be enteric gram-negative both aerobes and anaerobes 2-patient did have repeat CT has with evidence of partial versus complete bowel obstruction NG has been placed which the patient has been tolerating 3-the patient remains to be afebrile, white count has been normal, patient did have a follow-up CT on 12/25/2023 and it shows improvement in the bowel d ilatation pattern no abscess, patient to continue with the cefepime and Flagyl and monitor clinical course closely Dictation was produced using [employer]x dictation software. please excuse any grammatical, word or spelling errors. Time with Patient: Less than 30
--- NOTE | 2023-12-28 12:23 | P.PN ---
Subjective Progress Note Date: 12/28/23 CHIEF COMPLAINT: Perforated sigmoid diverticulitis HISTORY OF PRESENT ILLNESS: Patient is status post exploratory laparotomy, sigmoid colectomy and end colostomy on 12/08/23. Patient sitting at bedside gigi corona She reports her abdominal pain is controlled. She is she is still using the morphine and Percocet. Output from ostomy is still been small amount. Patient tolerated the clear liquids with no nausea or vomiting. But she did have dysphagia with thicker items such as pudding. Patient seen by speech therapy and they are recommending further evaluation. PHYSICAL EXAM: VITAL SIGNS: Reviewed. GENERAL: Well-developed in no acute distress. ABDOMEN: Nondistended. incision clean dry intact. James in place. Small amount of Stool present in ostomy bag NEUROLOGIC: Alert and oriented. Cranial nerves II through XII grossly intact. ASSESSMENT: 1. Perforated sigmoid diverticulitis status post exploratory laparotomy, sigmoid colectomy with end colostomy 2. Small bowel obstruction versus ileus after recent surgery 3. Urinary retention resolved 4. Hypokalemia improved 5. Dysphagia PLAN: -Discussed with speech therapy. Agree with MBS for evaluation of dysphagia -Continue clear liquids -Continue TPN for nutrition support -Continue antibiotics -Encourage patient to use incentive spirometer -Encourage patient to increase activity level. -Patient will require ECF at discharge -GI prophylaxis Protonix DVT prophylaxis subcu heparin Physician Estate Tax Examiner note has been reviewed by physician. Signing provider agrees with the documented findings, assessment, and plan of care. I have personally seen and examined the patient, reviewed the OIL DISPENSER /PAs history, exam and MDM and agree with the assessment and plan as written. Based on total visit time, I have performed more than 50% of the visit. As above: Patient still having some dysphagia issues. Will check modified barium swallow. Continue TPN. Objective - Vital Signs Vital signs: Vital Signs Temp 97.4 F L 12/28/23 07:14 Pulse 74 12/28/23 09:06 Resp 18 12/28/23 08:00 BP 120/57 12/28/23 07:14 Pulse Ox 99 12/28/23 07:14 FiO2 30 12/09/23 10:00 Intake & Output 12/27/23 12/28/23 12/28/23 18:59 06:59 18:59 Intake Total 300 Output Total 100 Balance 200 Weight 39.5 kg Intake: Oral 300 Output: Urine 0 Stool 100 Other: Voiding Method Toilet Toilet Bedside Commode Bedside Commode Bedpan Bedpan Diaper Diaper # Voids 1 2 2 ABP, PAP, CO, CI - Last Documented Arterial Blood Pressure 119/92 - Labs CBC & Chem 7: 12/26/23 06:14 12/28/23 05:41 Labs: Abnormal Lab Results - Last 24 Hours (Table) 12/27/23 12/28/23 12/28/23 Range/Units 23:28 05:41 05:42 Sodium 132 L (137-145) mmol/L BUN 27 H (7-17) mg/dL Creatinine 0.46 L (0.52-1.04) mg/dL POC Glucose (mg/dL) 167 H 115 H (70-110) mg/dL Calcium 8.0 L (8.4-10.2) mg/dL
--- NOTE | 2023-12-28 12:32 | P.PN ---
Subjective Progress Note Date: 12/28/23 The patient is seen today December 19, 2023 and follow-up on the regular medical floor. She is currently sitting up in bed. Awake and alert in no acute distress. She is maintaining O2 saturations in the 90s on room air. Nasogastric tube remains in place. Still having some mild abdominal discomfort. Ostomy with minimal output. Mild bloating. CT scan of the abdomen from yesterday revealed redemonstrated and overall stable appearance of findings concerning for small bowel obstruction with dilated small bowel loops and suspected transition point within the lower abdomen. No contrast is visualized extending into the colon. No plans for surgery at this point. Continuing conservative management per surgical services. Plan is for PICC line placement and to be transitioned to TPN. White count 11.5. Hemoglobin 10.9. Platelets 383. Sodium 133. Potassium 3.1. Bicarb 30. BUN 13. Creatinine 0.59. Glucose 102. Troponin 0.167, 0.174. Cardiology has been consulted. The patient is seen today December 20, 2023 in follow-up on the regular medical floor. She is awake and alert in no acute distress. She is sitting up in bed. She is maintaining O2 saturations in the 90s on room air. Nasogastric tube remains in place. She remains nothing by mouth. Abdominal x-ray today reveals gastric tube in appropriate position. No dilated loops of bowel identified. TPN at 30 MLS per hour for nutritional support. She remains on Flagyl and cefepime. White count 9.2. Hemoglobin 9.7. Platelets 322. Sodium 133. Potassium 2.9. Bicarb 27. BUN 12. Creatinine 0.47. Glucose 125. The patient is seen today December 21, 2023 in follow-up on the regular medical floor. She is sitting up in bed. Awake and alert in no acute distress. Nasogastric tube remains in place. She denies any worsening abdominal discomfort. Ostomy is functioning. She remains on TPN at 30 MLS per hour for nutritional support. Continued on Flagyl and cefepime. Continued on bronchodilators. NicoDerm patch in place. Heparin for DVT prophylaxis. Sodium 133. Potassium 3.8. Bicarb 23. BUN 15. Creatinine 0.36. Glucose 95. The patient is seen today December 22, 2023 and follow-up on the regular medical floor. She is currently awake and alert in no acute distress. Resting comfortably in bed. Continues to maintain good O2 saturation in the 90s on room air. She is afebrile. Hemodynamically stable. Echocardiogram reveals preserved left ventricular systolic function with ejection fraction of 65%. Sodium 133. Potassium 4.1. Bicarb 25. BUN 16. Creatinine 0.40. Glucose 84. Nasogastric tube remains in place. She remains NPO. She is receiving TPN for nutritional support. She is working well with the incentive spirometer. The patient is seen today December 23, 2023 in follow-up on the regular medical floor. She is currently sitting up in bed. Awake and alert in no acute distres s. Feeling stronger each day. She is maintaining O2 saturations in the 90s on room air. Chest x-ray shows evidence of COPD with ongoing small to moderate bilateral pleural effusions with adjacent atelectasis. She is encouraged regarding the increased use of the incentive spirometer. Sodium 136. Potassium 3.8. Bicarb 28. BUN 20. Creatinine 0.47. Glucose 100. Nasogastric tube remains in place. She is being nourished with TPN currently at 52 MLS per hour. She remains on bronchodilators. Antibiotics in the form of Flagyl and cefepime. The patient is seen today December 24, 2023 in follow-up on the regular medical floor. Awake and alert no acute distress. Currently sitting up in bed. Denies any worsening shortness of breath, cough or congestion. Maintaining good O2 saturations in the 90s on room air. Nasogastric tube remains in place. She is being nursed with TPN at 51 mL/h. Remains on antibiotics in the form of cefepime. Ostomy has good output. No abdominal pain. White count 7.2. Hemoglobin 10.0. Platelets 301. Sodium 133. Potassium 3.3. Bicarb 33. BUN 22. Creatinine 0.42. Glucose 85. The patient is seen today December 25, 2019 for follow-up on the regular medical floor. She is sitting up in bed. Awake and alert in no acute distress. Denies any worsening shortness of breath, cough or congestion. She is maintaining good O2 saturations in the 90s on room air. Chest x-ray reveals small bilateral effusions. Evidence of COPD. Nasogastric tube in good position. Right-sided PICC line in place. Follow-up CT scan of the abdomen pelvis revealed decrease in dilated loops of bowel throughout the abdomen compared to previous. Oral contrast extends to the rectum. Dilated bowel to 2.5 cm remains present. No transition point definitively visualized. Correlate for ileus and/or partial bowel obstruction. The gastric tube remains to wall suction. She remains on TPN for nutritional support. Remains on cefepime and Flagyl. Continued on bronchodilators. Sodium 133. Potassium 4.0. Bicarb 30. BUN 21. Creatinine 0.43. Glucose 95. The patient is seen today December 26, 2023 in follow-up on the regular medical floor. She is sitting up in bed. Awake and alert in no acute distress. She is maintaining good O2 saturations in the 90s on room air. Nasogastric tube remains in place. She is receiving TPN at 52 MLS per hour for nutritional support. She is continued on antibiotics in the form of cefepime and Flagyl. He is continued on bronchodilators. NicoDerm patch in place. Count 8.2. Hemoglobin 10.4. Platelets 294. Sodium 133. Potassium 3.7. Bicarb 29. BUN 18. Creatinine 0.42. Glucose 116. The patient is seen today December 27, 2023 in follow-up on the regular medical floor. She is currently resting comfortably in bed. Awake and alert in no acute distress. Maintaining O2 saturations in the 90s on room air. She is continued to have intermittent abdominal discomfort. Abdominal x-ray reveals that the air noted on the previous exam appeared to be superficial to the patient and likely within the ostomy bag. Contrast stenosis is seen to extend into the colon. Small bilateral pleural effusions. Nasogastric tube has been removed. Sodium 132. Potassium 5.0. Bicarb 27. BUN 27. Creatinine 0.55. Glucose 125. He remains on antibiotics in the form of cefepime and Flagyl. Continued on bronchodilators. NicoDerm patch in place. Heparin for DVT prophylaxis. The patient is seen today December 28, 2023 in follow-up on the regular medical floor. She is awake and alert in no acute distress. She has been up ambulating in the hallway and in her room with physical therapy assistance. Currently sitting up in a chair. Denies any worsening shortness of breath, cough or congestion. She is maintaining O2 saturations in the 90s on room air. Her nasogastric tube is out. She is being nursed with TPN at 52 mL/h. Remains on antibiotics in the form of cefepime and Flagyl. Continued on bronchodilators. Heparin for DVT prophylaxis. Objective - Vital Signs Vital signs: Vital Signs Temp 97.4 F L 12/28/23 07:14 Pulse 74 12/28/23 09:06 Resp 18 12/28/23 08:00 BP 120/57 12/28/23 07:14 Pulse Ox 99 12/28/23 07:14 FiO2 30 12/09/23 10:00 Intake & Output 12/27/23 12/28/23 12/28/23 18:59 06:59 18:59 Intake Total 300 Output Total 100 Balance 200 Weight 39.5 kg Intake: Oral 300 Output: Urine 0 Stool 100 Other: Voiding Method Toilet Toilet Bedside Commode Bedside Commode Bedpan Bedpan Diaper Diaper # Voids 1 2 2 ABP, PAP, CO, CI - Last Documented Arterial Blood Pressure 119/92 - Exam GENERAL EXAM: Awake, 78-year-old female, up ambulating with assistance, on room air, in no apparent distress. HEAD: Normocephalic. EYES: Sluggish reaction of pupils, equal size. NOSE: Clear with pink turbinates. Nasogastric tube removed. THROAT: Nasogastric tube secured in place. No erythema or exudates. NECK: No masses, no JVD. CHEST: No chest wall deformity. LUNGS: Equal air entry with faint crackles in the posterior bases. CVS: S1 and S2 normal with no audible murmur, regular rhythm. ABDOMEN: Abdominal dressing dry and intact. Left abdominal ostomy present. Functioning SPINE: No scoliosis or deformity SKIN: No rashes CENTRAL NERVOUS SYSTEM: Sedated, tone is normal in all 4 extremities. EXTREMITIES: There is no peripheral edema. No clubbing, no cyanosis. Peripheral pulses are intact. - Labs CBC & Chem 7: 12/26/23 06:14 12/28/23 05:41 Labs: Abnormal Lab Results - Last 24 Hours (Table) 12/27/23 12/28/23 12/28/23 Range/Units 23:28 05:41 05:42 Sodium 132 L (137-145) mmol/L BUN 27 H (7-17) mg/dL Creatinine 0.46 L (0.52-1.04) mg/dL POC Glucose (mg/dL) 167 H 115 H (70-110) mg/dL Calcium 8.0 L (8.4-10.2) mg/dL Assessment and Plan Assessment: Severe acute abdominal pain secondary to perforated sigmoid diverticulitis. Status post exploratory laparotomy, sigmoid colectomy, end colostomy on December 08, 2023. Most recent CT scan of the abdomen reveals ileus versus partial small bowel obstruction. Plan is for conservative management. Nasogastric tube removed. Continued on TPN via PICC line Acute hypoxemic respiratory failure secondary to above requiring prolonged ventilation postoperatively, recovered and on room air Severe protein calorie malnutrition with a BMI of less than 20 kg/m History of gastric ulcers and esophagitis History of rheumatoid arthritis History of chronic obstructive pulmonary disease History of chronic tobacco dependence History of hypertension History of hyperlipidemia History of gastroesophageal reflux disease Plan: The patient was seen and evaluated Labs and medications reviewed TPN for nutritional support Diet advanced to clear liquids Remains stable and on room air Plan is for Yodit Valle at discharge I have personally seen and examined the patient, performed the documentation and the assessment and plan as written. Number of minutes spent on the visit: 10.
[2023-12-28] MEDS: MVI, ADULT NO.4 WITH VIT K 10 ML, TRACE (CONC-1ML/DOSE) 1 ML, POTASSIUM CHLORIDE 10 MEQ... IV SCH (12:58)
--- NOTE | 2023-12-28 14:10 | P.PN ---
Subjective Progress Note Date: 12/28/23 This is a 78-year-old female who has been followed by Dr. Elizabeth admitted for perforated sigmoid diverticulitis went for surgical repair/sigmoid colectomy with end colostomy. Patient continues on the medical floor remains n.p.o. with an NG tube in place. Repeat abdominal CT shows concern for complete bowel obstruction there is stool noted in the colostomy. Patient has positive bowel sounds throughout. She continues on antibiotics in the form of IV cefepime and IV Flagyl remains on parenteral nutrition. She received a dose of IV Lasix one- time yesterday. Potassium today 3.3. Sodium 133. 12/25/2023 Patient evaluated today resting in bed. She is reporting some increased abdominal pain and overall not feeling well. She is currently undergoing a repeat abdominal CT scan and has received the contrast. NG tube remains in place currently clamped. She does have positive bowel sounds and has some small amount of brown stool in the ostomy. Patient received a dose of IV Lasix 2 days ago for the small bilateral pleural effusions which are essentially stable at this time. Her sodium level is 133. Remains on TPN. 12/26/2023 Patient evaluated today resting in bed. She continues to report abdominal discomfort and today states that she feels nauseous. Zofran has been ordered. There continues to be a small amount of stool in the ostomy bag. A repeat abdominal pelvis CT was completed showing decrease in dilated loops of bowel throughout the abdomen comparing to immediate priors. Oral contrast extends to the rectum correlate for ileus and/or partial bowel obstruction. NG tube rem ains in place with output of 100 MLS overnight of gastric drainage. Patient remains on IV Flagyl and IV cefepime. Remains on TPN. 12/27/2023 Patient is evaluated today sitting up at the bedside. She is continue to have stool through the ostomy. NG tube has removed today and patient is started on clear liquid diet. He remains hyponatremic this is likely from the TPN. Remains on IV cefepime and IV Flagyl. She reports that her nausea has resolved. 12/28/2023 Patient on the medical floor, has been up to the bathroom and able to take a shower today. NG tube remains out and patient continues on clear liquid diet. No reports of nausea overnight. Abdominal pain is managed and continues on morphine and percocet. Remains on TPN as patient had difficulty with advancing diet to full liquid. Review of Systems Constitutional: Denied any fatigue denied any fever. Cardio vascular: denied any chest pain, palpitations Gastrointestinal: denied any nausea, vomiting, diarrhea Pulmonary: Denied any shortness of breath cough Neurologic denied any new focal deficits All inpatient medications were reviewed and appropriate changes in these medications as dictated in the interval history and assessment and plan. PHYSICAL EXAMINATION: GENERAL: The patient is alert and oriented x3, not in any acute distress. Well developed, well nourished. HEENT: Pupils are round and equally reacting to light. EOMI. No scleral icterus. No conjunctival pallor. Normocephalic, atraumatic. No pharyngeal erythema. No thyromegaly. CARDIOVASCULAR: S1 and S2 present. No murmurs, rubs, or gallops. PULMONARY: Chest is clear to auscultation, no wheezing or crackles. ABDOMEN: Soft, nontender, nondistended, normoactive bowel sounds. No palpable organomegaly. NG tube in place. Midline dressing intact. ostomy present left lower quad with brown liquid stool in ostomy. MUSCULOSKELETAL: No joint swelling or deformity. EXTREMITIES: No cyanosis, clubbing, or pedal edema. NEUROLOGICAL: Gross neurological examination did not reveal any focal deficits. SKIN: No rashes. Assessment and plan: -Acute sigmoid diverticulitis with perforation status post sigmoid resection and colostomy formation on December 08, cultures growing E. coli and alphahemolytic Streptococcus -Secondary peritonitis from hollow viscus perforation, IV cefepime and IV Flagyl. ID following -Bowel obstruction vs ileus improved and NG tube has been removed patient is started on clear liquid diet -Dysphagia after NG tube removal not tolerating full liquid diet, patient will undergo modified barium swallow. -Urinary retention resolved at this time. -Anterior chest wall pain. Non-ST elevation CT. Type II. -Hypertensive heart disease. Severe LVH on echo. -Bilateral pleural effusions received a dose of IV Lasix, monitoring off of diuretic -Severe hypokalemia: resolved, continue to monitor and supplement per protocol -COPD and a current smoker continue current home regimen -Hyperlipidemia -Severe protein calorie malnutrition. BMI 18.3. -Chronic muscle spasm -Peptic ulcer disease -Essential hypertension. GI prophylaxis DVT prophylaxis Full Code Patient will require subacute rehab on discharge. Continue with incentive spirometer 10 x an hour while awake, continue on TPN through PICC line. Patient remains NPO. Continue antibiotics. Recommend to repeat labs in the morning and encourage increasing activity level. Pulmonary and infectious disease are following. The impression and plan of care has been dictated by Alee Landis, Nurse Practitioner as directed. Dr. Ferdinand MD I have performed a history and physical examination and medical decision making of this patient, discussed the same with the dictator, and agree with the dictators assessment and plan as written, documented as a scribe. Based on total visit time, I have performed more than 50% of this visit. Objective - Vital Signs Vital signs: Vital Signs Temp 97.8 F 12/28/23 13:37 Pulse 67 12/28/23 13:37 Resp 18 12/28/23 13:37 BP 103/59 12/28/23 13:37 Pulse Ox 98 12/28/23 13:37 FiO2 30 12/09/23 10:00 Intake & Output 12/27/23 12/28/23 12/28/23 18:59 06:59 18:59 Intake Total 300 Output Total 100 Balance 200 Weight 39.5 kg Intake: Oral 300 Output: Urine 0 Stool 100 Other: Voiding Method Toilet Toilet Bedside Commode Bedside Commode Bedpan Bedpan Diaper Diaper # Voids 1 2 2 ABP, PAP, CO, CI - Last Documented Arterial Blood Pressure 119/92 - Labs CBC & Chem 7: 12/26/23 06:14 12/28/23 05:41 Labs: Abnormal Lab Results - Last 24 Hours (Table) 12/27/23 12/28/23 12/28/23 Range/Units 23:28 05:41 05:42 Sodium 132 L (137-145) mmol/L BUN 27 H (7-17) mg/dL Creatinine 0.46 L (0.52-1.04) mg/dL POC Glucose (mg/dL) 167 H 115 H (70-110) mg/dL Calcium 8.0 L (8.4-10.2) mg/dL Assessment and Plan Time with Patient: Less than 30
[2023-12-28] MEDS: CEFEPIME 2 GM in SODIUM CHLORIDE 0.9% 100 ML IVPB SCH (14:11)
[2023-12-28] MEDS: FAT EMULSION 20% 250 ML IV SCH (15:59)
[2023-12-28 23:56] LABS: Glucose,Whole Blood 160 mg/dL (70-110)
[2023-12-29 05:49] LABS: Glucose,Whole Blood 128 mg/dL (70-110)
[2023-12-29 08:22] LABS: ALT 22 U/L (4-34); AST 33 U/L (14-36); African American GFR (CKD) >90 (>60 ml/min/1.73 sqM); Albumin 2.1 g/dL (3.5-5.0); Albumin/Globulin Ratio 0.8; Alkaline Phosphatase 66 U/L (38-126); Anion Gap 3 mmol/L; Blood Urea Nitrogen 22 mg/dL (7-17); Calcium 8.1 mg/dL (8.4-10.2); Carbon Dioxide 24 mmol/L (22-30); Chloride 105 mmol/L (98-107); Globulin 2.6 g/dL; Glucose 87 mg/dL (74-99); Magnesium 2.1 mg/dL (1.6-2.3); Non-African American GFR(CKD) >90 (>60 ml/min/1.73 sqM); Phosphorus 3.6 mg/dL (2.5-4.5); Potassium 4.4 mmol/L (3.5-5.1); Sodium 132 mmol/L (137-145); Total Bilirubin 0.3 mg/dL (0.2-1.3); Total Protein 4.7 g/dL (6.3-8.2)
[2023-12-29 10:47] LABS: Basophils # (A) 0.06 X 10*3/uL (0.00-0.10); Basophils % (A) 0.9 %; Eosinophils # (A) 0 X 10*3/uL (0.04-0.35); Eosinophils % (A) 0 %; HCT 30.6 % (37.2-46.3); Lymphocytes # (A) 0.71 X 10*3/uL (0.90-5.00); Lymphocytes % (A) 10.2 %; MCH 32.1 pg (27.0-32.0); MCHC 32.7 g/dL (32.0-37.0); MCV 98.1 FL (80.0-97.0); Monocytes # (A) 0.84 X 10*3/uL (0.20-1.00); NRBC Per 100 WBC 0 X 10*3/uL (0.00-0.01); Neutrophils # (A) 5.25 X 10*3/uL (1.80-7.70); Neutrophils % (A) 75.2 %; Platelet Count 247 X 10*3/uL (140-440); RBC 3.12 X 10*6/uL (4.10-5.20); RDW 15.5 % (11.5-14.5); WBC 6.98 X 10*3/uL (4.50-10.00)
[2023-12-29 11:24] LABS: Glucose,Whole Blood 122 mg/dL (70-110)
--- NOTE | 2023-12-29 12:33 | P.PN ---
Subjective Progress Note Date: 12/29/23 CHIEF COMPLAINT: Perforated sigmoid diverticulitis HISTORY OF PRESENT ILLNESS: Patient is status post exploratory laparotomy, sigmoid colectomy and end colostomy on 12/08/23. Patient sitting at bedside gigi corona She reports her abdominal pain is controlled. She is she is still using the morphine and Percocet. More stool present in ostomy bag today. Patient tolerated the clear liquids with no nausea or vomiting. But she did have dysphagia with thicker items such as pudding. Afebrile. WBC 6.98 Hgb 10 platelets 247 sodium is 132 PHYSICAL EXAM: VITAL SIGNS: Reviewed. GENERAL: Well-developed in no acute distress. ABDOMEN: Nondistended. Tenderness at incision site. Incision clean dry intact. James in place. Stool present in ostomy bag NEUROLOGIC: Alert and oriented. Cranial nerves II through XII grossly intact. ASSESSMENT: 1. Perforated sigmoid diverticulitis status post exploratory laparotomy, sigmoid colectomy with end colostomy 2. Small bowel obstruction versus ileus after recent surgery 3. Urinary retention resolved 4. Hypokalemia improved 5. Dysphagia PLAN: -Patient followed by speech therapy and scheduled for MBS study today -Continue clear liquids -Continue TPN for nutrition support -Continue antibiotics -Encourage patient to use incentive spirometer -Encourage patient to increase activity level. -Continue pain management. Discussed with patient that she needs to use the IV pain medication for breakthrough pain only and to use the oral pain medication -Patient will require ECF at discharge -GI prophylaxis Protonix DVT prophylaxis subcu heparin Physician Gypsum Calciner note has been reviewed by physician. Signing provider agrees with the documented findings, assessment, and plan of care. I have personally seen and examined the patient, reviewed the PE [employer]LECT[employer]ICAL ENGINEER /PAs history, exam and MDM and agree with the assessment and plan as written. Based on total visit time, I have performed more than 50% of the visit. As above: Patient's modified barium swallow today shows distal esophageal stricture. Will plan EGD with possible dilation tomorrow. Patient is agreeable. Objective - Vital Signs Vital signs: Vital Signs Temp 97.6 F 12/29/23 07:12 Pulse 76 12/29/23 08:57 Resp 18 12/29/23 07:12 BP 127/68 12/29/23 07:12 Pulse Ox 100 12/29/23 07:12 FiO2 30 12/09/23 10:00 Intake & Output 12/28/23 12/29/23 12/29/23 18:59 06:59 18:59 Intake Total 300 1015.733 Output Total 100 Balance 200 1015.733 Weight 40.5 kg Intake: Intake, IV Titration 1015.733 Amount Mvi, Adult No.4 with Vit 1015.733 K 10 ml Trace (Conc-1Ml/ Dose) 1 ml Potassium Chloride 10 meq Sodium Chloride 4Meq/ml Vial 68 meq In Amino Acid 5%-D20w +Lytes*E* 1,000 ml @ 52 mls/hr IV .[id number] [facility] Rx #:[id number] Oral 300 Output: Urine 0 Stool 100 Other: Voiding Method Toilet Toilet Bedside Commode Diaper Bedpan Diaper # Voids 3 4 ABP, PAP, CO, CI - Last Documented Arterial Blood Pressure 119/92 - Labs CBC & Chem 7: 12/29/23 07:55 12/29/23 07:55 Labs: Abnormal Lab Results - Last 24 Hours (Table) 12/28/23 12/29/23 12/29/23 Range/Units 23:53 05:41 07:55 RBC (4.10-5.20) X 10*6/uL Hgb (12.0-15.0) g/dL Hct (37.2-46.3) % MCV (80.0-97.0) FL MCH (27.0-32.0) pg RDW (11.5-14.5) % Immature Gran # (0.00-0.04) X 10*3/uL Lymphocytes # (0.90-5.00) X 10*3/uL Eosinophils # (0.04-0.35) X 10*3/uL Sodium 132 L (137-145) mmol/L BUN 22 H (7-17) mg/dL Creatinine 0.48 L (0.52-1.04) mg/dL POC Glucose (mg/dL) 160 H 128 H (70-110) mg/dL Calcium 8.1 L (8.4-10.2) mg/dL Total Protein 4.7 L (6.3-8.2) g/dL Albumin 2.1 L (3.5-5.0) g/dL 12/29/23 12/29/23 Range/Units 07:55 11:23 RBC 3.12 L (4.10-5.20) X 10*6/uL Hgb 10.0 L (12.0-15.0) g/dL Hct 30.6 L (37.2-46.3) % MCV 98.1 H (80.0-97.0) FL MCH 32.1 H (27.0-32.0) pg RDW 15.5 H (11.5-14.5) % Immature Gran # 0.12 H (0.00-0.04) X 10*3/uL Lymphocytes # 0.71 L (0.90-5.00) X 10*3/uL Eosinophils # 0 L (0.04-0.35) X 10*3/uL Sodium (137-145) mmol/L BUN (7-17) mg/dL Creatinine (0.52-1.04) mg/dL POC Glucose (mg/dL) 122 H (70-110) mg/dL Calcium (8.4-10.2) mg/dL Total Protein (6.3-8.2) g/dL Albumin (3.5-5.0) g/dL
--- NOTE | 2023-12-29 13:25 | P.PN ---
Subjective Progress Note Date: 12/29/23 The patient is seen today December 19, 2023 and follow-up on the regular medical floor. She is currently sitting up in bed. Awake and alert in no acute distress. She is maintaining O2 saturations in the 90s on room air. Nasogastric tube remains in place. Still having some mild abdominal discomfort. Ostomy with minimal output. Mild bloating. CT scan of the abdomen from yesterday revealed redemonstrated and overall stable appearance of findings concerning for small bowel obstruction with dilated small bowel loops and suspected transition point within the lower abdomen. No contrast is visualized extending into the colon. No plans for surgery at this point. Continuing conservative management per surgical services. Plan is for PICC line placement and to be transitioned to TPN. White count 11.5. Hemoglobin 10.9. Platelets 383. Sodium 133. Potassium 3.1. Bicarb 30. BUN 13. Creatinine 0.59. Glucose 102. Troponin 0.167, 0.174. Cardiology has been consulted. The patient is seen today December 20, 2023 in follow-up on the regular medical floor. She is awake and alert in no acute distress. She is sitting up in bed. She is maintaining O2 saturations in the 90s on room air. Nasogastric tube remains in place. She remains nothing by mouth. Abdominal x-ray today reveals gastric tube in appropriate position. No dilated loops of bowel identified. TPN at 30 MLS per hour for nutritional support. She remains on Flagyl and cefepime. White count 9.2. Hemoglobin 9.7. Platelets 322. Sodium 133. Potassium 2.9. Bicarb 27. BUN 12. Creatinine 0.47. Glucose 125. The patient is seen today December 21, 2023 in follow-up on the regular medical floor. She is sitting up in bed. Awake and alert in no acute distress. Nasogastric tube remains in place. She denies any worsening abdominal discomfort. Ostomy is functioning. She remains on TPN at 30 MLS per hour for nutritional support. Continued on Flagyl and cefepime. Continued on bronchodilators. NicoDerm patch in place. Heparin for DVT prophylaxis. Sodium 133. Potassium 3.8. Bicarb 23. BUN 15. Creatinine 0.36. Glucose 95. The patient is seen today December 22, 2023 and follow-up on the regular medical floor. She is currently awake and alert in no acute distress. Resting comfortably in bed. Continues to maintain good O2 saturation in the 90s on room air. She is afebrile. Hemodynamically stable. Echocardiogram reveals preserved left ventricular systolic function with ejection fraction of 65%. Sodium 133. Potassium 4.1. Bicarb 25. BUN 16. Creatinine 0.40. Glucose 84. Nasogastric tube remains in place. She remains NPO. She is receiving TPN for nutritional support. She is working well with the incentive spirometer. The patient is seen today December 23, 2023 in follow-up on the regular medical floor. She is currently sitting up in bed. Awake and alert in no acute distres s. Feeling stronger each day. She is maintaining O2 saturations in the 90s on room air. Chest x-ray shows evidence of COPD with ongoing small to moderate bilateral pleural effusions with adjacent atelectasis. She is encouraged regarding the increased use of the incentive spirometer. Sodium 136. Potassium 3.8. Bicarb 28. BUN 20. Creatinine 0.47. Glucose 100. Nasogastric tube remains in place. She is being nourished with TPN currently at 52 MLS per hour. She remains on bronchodilators. Antibiotics in the form of Flagyl and cefepime. The patient is seen today December 24, 2023 in follow-up on the regular medical floor. Awake and alert no acute distress. Currently sitting up in bed. Denies any worsening shortness of breath, cough or congestion. Maintaining good O2 saturations in the 90s on room air. Nasogastric tube remains in place. She is being nursed with TPN at 51 mL/h. Remains on antibiotics in the form of cefepime. Ostomy has good output. No abdominal pain. White count 7.2. Hemoglobin 10.0. Platelets 301. Sodium 133. Potassium 3.3. Bicarb 33. BUN 22. Creatinine 0.42. Glucose 85. The patient is seen today December 25, 2019 for follow-up on the regular medical floor. She is sitting up in bed. Awake and alert in no acute distress. Denies any worsening shortness of breath, cough or congestion. She is maintaining good O2 saturations in the 90s on room air. Chest x-ray reveals small bilateral effusions. Evidence of COPD. Nasogastric tube in good position. Right-sided PICC line in place. Follow-up CT scan of the abdomen pelvis revealed decrease in dilated loops of bowel throughout the abdomen compared to previous. Oral contrast extends to the rectum. Dilated bowel to 2.5 cm remains present. No transition point definitively visualized. Correlate for ileus and/or partial bowel obstruction. The gastric tube remains to wall suction. She remains on TPN for nutritional support. Remains on cefepime and Flagyl. Continued on bronchodilators. Sodium 133. Potassium 4.0. Bicarb 30. BUN 21. Creatinine 0.43. Glucose 95. The patient is seen today December 26, 2023 in follow-up on the regular medical floor. She is sitting up in bed. Awake and alert in no acute distress. She is maintaining good O2 saturations in the 90s on room air. Nasogastric tube remains in place. She is receiving TPN at 52 MLS per hour for nutritional support. She is continued on antibiotics in the form of cefepime and Flagyl. He is continued on bronchodilators. NicoDerm patch in place. Count 8.2. Hemoglobin 10.4. Platelets 294. Sodium 133. Potassium 3.7. Bicarb 29. BUN 18. Creatinine 0.42. Glucose 116. The patient is seen today December 27, 2023 in follow-up on the regular medical floor. She is currently resting comfortably in bed. Awake and alert in no acute distress. Maintaining O2 saturations in the 90s on room air. She is continued to have intermittent abdominal discomfort. Abdominal x-ray reveals that the air noted on the previous exam appeared to be superficial to the patient and likely within the ostomy bag. Contrast stenosis is seen to extend into the colon. Small bilateral pleural effusions. Nasogastric tube has been removed. Sodium 132. Potassium 5.0. Bicarb 27. BUN 27. Creatinine 0.55. Glucose 125. He remains on antibiotics in the form of cefepime and Flagyl. Continued on bronchodilators. NicoDerm patch in place. Heparin for DVT prophylaxis. The patient is seen today December 28, 2023 in follow-up on the regular medical floor. She is awake and alert in no acute distress. She has been up ambulating in the hallway and in her room with physical therapy assistance. Currently sitting up in a chair. Denies any worsening shortness of breath, cough or congestion. She is maintaining O2 saturations in the 90s on room air. Her nasogastric tube is out. She is being nursed with TPN at 52 mL/h. Remains on antibiotics in the form of cefepime and Flagyl. Continued on bronchodilators. Heparin for DVT prophylaxis. The patient is seen today December 29, 2023 in follow-up on the regular medical floor. She is sitting up in a chair. Awake and alert in no acute distress. She denies any worsening shortness of breath, cough or congestion. She is maintaining O2 saturations in the 90s on room air. She has been advanced to clear liquid diet. She remains with supplemental nourishment and TPN at 52 MLS per hour. She is continued on cefepime and Flagyl. DuoNeb ventilations, Pul micort and perform scintillations, Singulair. Heparin for DVT prophylaxis. NicoDerm patch in place. Objective - Vital Signs Vital signs: Vital Signs Temp 97.6 F 12/29/23 07:12 Pulse 78 12/29/23 11:56 Resp 18 12/29/23 07:12 BP 127/68 12/29/23 07:12 Pulse Ox 100 12/29/23 07:12 FiO2 30 12/09/23 10:00 Intake & Output 12/28/23 12/29/23 12/29/23 18:59 06:59 18:59 Intake Total 300 1015.733 Output Total 100 Balance 200 1015.733 Weight 40.5 kg Intake: Intake, IV Titration 1015.733 Amount Mvi, Adult No.4 with Vit 1015.733 K 10 ml Trace (Conc-1Ml/ Dose) 1 ml Potassium Chloride 10 meq Sodium Chloride 4Meq/ml Vial 68 meq In Amino Acid 5%-D20w +Lytes*E* 1,000 ml @ 52 mls/hr IV .[id number] [facility] Rx #:[id number] Oral 300 Output: Urine 0 Stool 100 Other: Voiding Method Toilet Toilet Bedside Commode Diaper Bedpan Diaper # Voids 3 4 ABP, PAP, CO, CI - Last Documented Arterial Blood Pressure 119/92 - Exam GENERAL EXAM: Awake, pleasant 78-year-old female, up in a chair, on room air, in no apparent distress. HEAD: Normocephalic. EYES: Sluggish reaction of pupils, equal size. NOSE: Clear with pink turbinates. THROAT: Nasogastric tube secured in place. No erythema or exudates. NECK: No masses, no JVD. CHEST: No chest wall deformity. LUNGS: Equal air entry with faint crackles in the posterior bases. CVS: S1 and S2 normal with no audible murmur, regular rhythm. ABDOMEN: Abdominal dressing dry and intact. Left abdominal ostomy present. Functioning SPINE: No scoliosis or deformity SKIN: No rashes CENTRAL NERVOUS SYSTEM: Sedated, tone is normal in all 4 extremities. EXTREMITIES: There is no peripheral edema. No clubbing, no cyanosis. Peripheral pulses are intact. - Labs CBC & Chem 7: 12/29/23 07:55 12/29/23 07:55 Labs: Abnormal Lab Results - Last 24 Hours (Table) 12/28/23 12/29/23 12/29/23 Range/Units 23:53 05:41 07:55 RBC (4.10-5.20) X 10*6/uL Hgb (12.0-15.0) g/dL Hct (37.2-46.3) % MCV (80.0-97.0) FL MCH (27.0-32.0) pg RDW (11.5-14.5) % Immature Gran # (0.00-0.04) X 10*3/uL Lymphocytes # (0.90-5.00) X 10*3/uL Eosinophils # (0.04-0.35) X 10*3/uL Sodium 132 L (137-145) mmol/L BUN 22 H (7-17) mg/dL Creatinine 0.48 L (0.52-1.04) mg/dL POC Glucose (mg/dL) 160 H 128 H (70-110) mg/dL Calcium 8.1 L (8.4-10.2) mg/dL Total Protein 4.7 L (6.3-8.2) g/dL Albumin 2.1 L (3.5-5.0) g/dL 12/29/23 12/29/23 Range/Units 07:55 11:23 RBC 3.12 L (4.10-5.20) X 10*6/uL Hgb 10.0 L (12.0-15.0) g/dL Hct 30.6 L (37.2-46.3) % MCV 98.1 H (80.0-97.0) FL MCH 32.1 H (27.0-32.0) pg RDW 15.5 H (11.5-14.5) % Immature Gran # 0.12 H (0.00-0.04) X 10*3/uL Lymphocytes # 0.71 L (0.90-5.00) X 10*3/uL Eosinophils # 0 L (0.04-0.35) X 10*3/uL Sodium (137-145) mmol/L BUN (7-17) mg/dL Creatinine (0.52-1.04) mg/dL POC Glucose (mg/dL) 122 H (70-110) mg/dL Calcium (8.4-10.2) mg/dL Total Protein (6.3-8.2) g/dL Albumin (3.5-5.0) g/dL Assessment and Plan Assessment: Severe acute abdominal pain secondary to perforated sigmoid diverticulitis. Status post exploratory laparotomy, sigmoid colectomy, end colostomy on December 08, 2023. Most recent CT scan of the abdomen reveals ileus versus partial small bowel obstruction. Plan is for conservative management. Nasogastric tube removed. Continued on TPN via PICC line Acute hypoxemic respiratory failure secondary to above requiring prolonged ventilation postoperatively, recovered and on room air Severe protein calorie malnutrition with a BMI of less than 20 kg/m History of gastric ulcers and esophagitis History of rheumatoid arthritis History of chronic obstructive pulmonary disease History of chronic tobacco dependence History of hypertension History of hyperlipidemia History of gastroesophageal reflux disease Plan: The patient was seen and evaluated Labs and medications reviewed Discontinue Pulmicort and Perforomist inhalations Add Symbicort TPN for nutritional support Diet advanced to clear liquids Barium swallow pending Remains stable and on room air Plan is for Yodit Valle at discharge I have personally seen and examined the patient, performed the documentation and the assessment and plan as written. Number of minutes spent on the visit: 10.
--- NOTE | 2023-12-29 15:47 | P.PN ---
Subjective Progress Note Date: 12/29/23 Principal diagnosis: Reason for follow-up is perforated diverticulitis and abscess Patient is a 78-year-old female with a past medical history significant for COPD hypertension rheumatoid arthritis presenting to the ER for evaluation of epigastric abdominal pain, patient did have a CT abdominal pelvis concerning for free subsequently taken to the OR status post laparotomy with evidence of perforated sigmoid diverticulitis status post sigmoid colectomy and end colostomy. On today's evaluation that is 12/29/2023,the patient denies any fever or any chills, patient is breathing comfortably on room air, the patient denies chest pain shortness of breath and no worsening cough, patient abdominal pain is currently controlled no nausea vomiting tolerating her diet and did have output in colostomy. Patient white count 6.98, creatinine 0.48 Objective - Vital Signs Vital signs: Vital Signs Temp 97.5 F L 12/29/23 13:49 Pulse 78 12/29/23 13:49 Resp 18 12/29/23 13:49 BP 127/65 12/29/23 13:49 Pulse Ox 99 12/29/23 13:49 FiO2 30 12/09/23 10:00 Intake & Output 12/28/23 12/29/23 12/29/23 18:59 06:59 18:59 Intake Total 300 1015.733 Output Total 100 Balance 200 1015.733 Weight 40.5 kg 40.5 kg Intake: Intake, IV Titration 1015.733 Amount Mvi, Adult No.4 with Vit 1015.733 K 10 ml Trace (Conc-1Ml/ Dose) 1 ml Potassium Chloride 10 meq Sodium Chloride 4Meq/ml Vial 68 meq In Amino Acid 5%-D20w +Lytes*E* 1,000 ml @ 52 mls/hr IV .[id number] [facility] Rx #:[id number] Oral 300 Output: Urine 0 Stool 100 Other: Voiding Method Toilet Toilet Bedside Commode Diaper Bedpan Diaper # Voids 3 4 ABP, PAP, CO, CI - Last Documented Arterial Blood Pressure 119/92 - Exam GENERAL DESCRIPTION: An elderly female lying in bed in no distress RESPIRATORY SYSTEM: Unlabored breathing , decreased breath sounds at bases HEART: S1 S2 regular rate and rhythm , ABDOMEN: Soft , mild tenderness EXTREMITIES: No edema feet - Labs CBC & Chem 7: 12/29/23 07:55 12/29/23 07:55 Labs: Abnormal Lab Results - Last 24 Hours (Table) 12/28/23 12/29/23 12/29/23 Range/Units 23:53 05:41 07:55 RBC (4.10-5.20) X 10*6/uL Hgb (12.0-15.0) g/dL Hct (37.2-46.3) % MCV (80.0-97.0) FL MCH (27.0-32.0) pg RDW (11.5-14.5) % Immature Gran # (0.00-0.04) X 10*3/uL Lymphocytes # (0.90-5.00) X 10*3/uL Eosinophils # (0.04-0.35) X 10*3/uL Sodium 132 L (137-145) mmol/L BUN 22 H (7-17) mg/dL Creatinine 0.48 L (0.52-1.04) mg/dL POC Glucose (mg/dL) 160 H 128 H (70-110) mg/dL Calcium 8.1 L (8.4-10.2) mg/dL Total Protein 4.7 L (6.3-8.2) g/dL Albumin 2.1 L (3.5-5.0) g/dL 12/29/23 12/29/23 Range/Units 07:55 11:23 RBC 3.12 L (4.10-5.20) X 10*6/uL Hgb 10.0 L (12.0-15.0) g/dL Hct 30.6 L (37.2-46.3) % MCV 98.1 H (80.0-97.0) FL MCH 32.1 H (27.0-32.0) pg RDW 15.5 H (11.5-14.5) % Immature Gran # 0.12 H (0.00-0.04) X 10*3/uL Lymphocytes # 0.71 L (0.90-5.00) X 10*3/uL Eosinophils # 0 L (0.04-0.35) X 10*3/uL Sodium (137-145) mmol/L BUN (7-17) mg/dL Creatinine (0.52-1.04) mg/dL POC Glucose (mg/dL) 122 H (70-110) mg/dL Calcium (8.4-10.2) mg/dL Total Protein (6.3-8.2) g/dL Albumin (3.5-5.0) g/dL Assessment and Plan (1) Intra-abdominal abscess Current Visit: Yes Status: Acute Code(s): K65.1 - PERITONEAL ABSCESS SNOMED Code(s): 82190674 (2) Allergy to multiple antibiotics Current Visit: Yes Status: Acute Code(s): Z88.1 - ALLERGY STATUS TO OTHER ANTIBIOTIC AGENTS SNOMED Code(s): 739743536 (3) Perforated viscus Current Visit: Yes Status: Acute Code(s): R19.8 - OTH SYMPTOMS AND SIGNS INVOLVING THE DGSTV SYS AND ABDOMEN SNOMED Code(s): 525609277 Plan: 1patient presented to hospital with abdominal pain has been diagnosed with a perforated viscus in this patient was status post laparotomy with evidence of perforated sigmoid diverticulitis status post laparotomy sigmoid colectomy and end colostomy for likely organism need to cover will be enteric gram-negative both aerobes and anaerobes 2-patient did have repeat CT has with evidence of partial versus complete bowel obstruction NG has been placed which the patient has been tolerating 3-the patient remains to be afebrile, white count has been normal, patient did have a follow-up CT on 12/25/2023 and it shows improvement in the bowel dilatation pattern no abscess 4- patient to continue with the cefepime and Flagyl and short course of oral antibiotic on discharge Dictation was produced using [email or web address] dictation software. please excuse any grammatical, word or spelling errors. Time with Patient: Less than 30
[2023-12-29 18:35] LABS: Glucose,Whole Blood 107 mg/dL (70-110)
[2023-12-29] MEDS: SYMBICORT 160-4.5 MCG INHALER INHALATION SCH (20:33)
--- NOTE | 2023-12-29 21:38 | FL ---
EXAMINATION TYPE: FL barium swallow w video DATE OF EXAM: 12/29/2023 CLINICAL HISTORY: 78-year-old female with coughing after solids TECHNIQUE: Deglutition study is performed utilizing thin liquid barium, barium thick applesauce, and barium coated cracker. Total fluoroscopy time: 2 minutes 36 seconds. Total images: None. Real-time fluoroscopy support was provided to speech pathology. DOSE AREA PRODUCT (DAP) UGY*M,MGY*CM: 186.9 COMPARISON: None. FINDINGS: The oral and pharyngeal phases show satisfactory initiation and propagation with all modalities teste d. Normal mastication is seen with solid modalities tested. There is no evidence of penetration or aspiration with any modality tested. No significant pharyngeal residue was appreciated. However, there is extensive filling of the esophagus with combination of solid and liquids filling th e esophagus to the level of the thoracic inlet. Imaging down to the GE junction shows tapering and cu t off of the esophageal column. IMPRESSION: 1. No penetration or aspiration seen. 2. However, there are extensive solids and liquids filling the esophagus up to the thoracic inlet. Im aging down to the GE junction shows tapering and cut off of the esophageal column. Recommend direct v isualization to assess for potential stricture. Please refer to speech therapist notes for further details if necessary.
--- NOTE | 2023-12-29 23:13 | P.PN ---
Subjective Progress Note Date: 12/29/23 This is a 78-year-old female who has been followed by Dr. Elizabeth admitted for perforated sigmoid diverticulitis went for surgical repair/sigmoid colectomy with end colostomy. Patient continues on the medical floor remains n.p.o. with an NG tube in place. Repeat abdominal CT shows concern for complete bowel obstruction there is stool noted in the colostomy. Patient has positive bowel sounds throughout. She continues on antibiotics in the form of IV cefepime and IV Flagyl remains on parenteral nutrition. She received a dose of IV Lasix one- time yesterday. Potassium today 3.3. Sodium 133. 12/25/2023 Patient evaluated today resting in bed. She is reporting some increased abdominal pain and overall not feeling well. She is currently undergoing a repeat abdominal CT scan and has received the contrast. NG tube remains in place currently clamped. She does have positive bowel sounds and has some small amount of brown stool in the ostomy. Patient received a dose of IV Lasix 2 days ago for the small bilateral pleural effusions which are essentially stable at this time. Her sodium level is 133. Remains on TPN. 12/26/2023 Patient evaluated today resting in bed. She continues to report abdominal discomfort and today states that she feels nauseous. Zofran has been ordered. There continues to be a small amount of stool in the ostomy bag. A repeat abdominal pelvis CT was completed showing decrease in dilated loops of bowel throughout the abdomen comparing to immediate priors. Oral contrast extends to the rectum correlate for ileus and/or partial bowel obstruction. NG tube rem ains in place with output of 100 MLS overnight of gastric drainage. Patient remains on IV Flagyl and IV cefepime. Remains on TPN. 12/27/2023 Patient is evaluated today sitting up at the bedside. She is continue to have stool through the ostomy. NG tube has removed today and patient is started on clear liquid diet. He remains hyponatremic this is likely from the TPN. Remains on IV cefepime and IV Flagyl. She reports that her nausea has resolved. 12/28/2023 Patient on the medical floor, has been up to the bathroom and able to take a shower today. NG tube remains out and patient continues on clear liquid diet. No reports of nausea overnight. Abdominal pain is managed and continues on morphine and percocet. Remains on TPN as patient had difficulty with advancing diet to full liquid. 12/29/2023 Patient evaluated today sitting up in the chair. Has increased output from the ostomy and increased urine output. No shortness of breath no chest pain no nausea vomiting or diarrhea. NG tube has been out patient is been maintained on a clear liquid diet states that she is having difficulty with a full liquid diet feels like it is getting stuck and she is unable to swallow it down. Review of Systems Constitutional: Denied any fatigue denied any fever. Cardio vascular: denied any chest pain, palpitations Gastrointestinal: denied any nausea, vomiting, diarrhea Pulmonary: Denied any shortness of breath cough Neurologic denied any new focal deficits All inpatient medications were reviewed and appropriate changes in these medications as dictated in the interval history and assessment and plan. PHYSICAL EXAMINATION: GENERAL: The patient is alert and oriented x3, not in any acute distress. Well developed, well nourished. HEENT: Pupils are round and equally reacting to light. EOMI. No scleral icterus. No conjunctival pallor. Normocephalic, atraumatic. No pharyngeal erythema. No thyromegaly. CARDIOVASCULAR: S1 and S2 present. No murmurs, rubs, or gallops. PULMONARY: Chest is clear to auscultation, no wheezing or crackles. ABDOMEN: Soft, nontender, nondistended, normoactive bowel sounds. No palpable organomegaly. NG tube in place. Midline dressing intact. ostomy present left lower quad with brown liquid stool in ostomy. MUSCULOSKELETAL: No joint swelling or deformity. EXTREMITIES: No cyanosis, clubbing, or pedal edema. NEUROLOGICAL: Gross neurological examination did not reveal any focal deficits. SKIN: No rashes. Assessment and plan: -Acute sigmoid diverticulitis with perforation status post sigmoid resection and colostomy formation on December 08, cultures growing E. coli and alphahemolytic Streptococcus -Secondary peritonitis from hollow viscus perforation, IV cefepime and IV Flagyl. ID following -Bowel obstruction vs ileus improved and NG tube has been removed patient is started on clear liquid diet -Dysphagia after NG tube removal not tolerating full liquid diet, patient will undergo modified barium swallow. -Urinary retention resolved at this time. -Anterior chest wall pain. Non-ST elevation MN. Type II. -Hypertensive heart disease. Severe LVH on echo. -Bilateral pleural effusions received a dose of IV Lasix, monitoring off of d iuretic -Severe hypokalemia: resolved, continue to monitor and supplement per protocol -COPD and a current smoker continue current home regimen -Hyperlipidemia -Severe protein calorie malnutrition. BMI 18.3. -Chronic muscle spasm -Peptic ulcer disease -Essential hypertension. GI prophylaxis DVT prophylaxis Full Code Patient will require subacute rehab on discharge. Continue with incentive spirometer 10 x an hour while awake, continue on TPN through PICC line. On clear liquid diet, pending MBS today. Continue antibiotics. Recommend to repeat labs in the morning and encourage increasing activity level. Pulmonary and infectious disease are following. The impression and plan of care has been dictated by Alee Landis, Nurse Practitioner as directed. Dr. Ferdinand MD I have performed a history and physical examination and medical decision making of this patient, discussed the same with the dictator, and agree with the dictators assessment and plan as written, documented as a scribe. Based on total visit time, I have performed more than 50% of this visit. Objective - Vital Signs Vital signs: Vital Signs Temp 97.8 F 12/29/23 19:25 Pulse 80 12/29/23 20:41 Resp 15 12/29/23 19:25 BP 146/72 12/29/23 19:25 Pulse Ox 99 12/29/23 19:25 FiO2 30 12/09/23 10:00 Intake & Output 12/29/23 12/29/23 12/30/23 06:59 18:59 06:59 Intake Total 1215.733 Balance 1215.733 Weight 40.5 kg 40.5 kg Intake: Intake, IV Titration 1215.733 Amount Cefepime 2 gm In Sodium 100 Chloride 0.9% 100 ml @ 25 mls/hr IVPB Q8H ANN Rx#: [id number] Mvi, Adult No.4 with Vit 1015.733 K 10 ml Trace (Conc-1Ml/ Dose) 1 ml Potassium Chloride 10 meq Sodium Chloride 4Meq/ml Vial 68 meq In Amino Acid 5%-D20w +Lytes*E* 1,000 ml @ 52 mls/hr IV .[id number] ANN Rx #:[id number] metroNIDAZOLE-NS PMX 500 100 mg In Saline 1 100ml.bag @ 100 mls/hr IVPB Q8HR ANN Rx#:[id number] Other: Voiding Method Toilet Diaper # Voids 4 ABP, PAP, CO, CI - Last Documented Arterial Blood Pressure 119/92 - Labs CBC & Chem 7: 12/29/23 07:55 12/29/23 07:55 Labs: Abnormal Lab Results - Last 24 Hours (Table) 12/28/23 12/29/23 12/29/23 Range/Units 23:53 05:41 07:55 RBC (4.10-5.20) X 10*6/uL Hgb (12.0-15.0) g/dL Hct (37.2-46.3) % MCV (80.0-97.0) FL MCH (27.0-32.0) pg RDW (11.5-14.5) % Immature Gran # (0.00-0.04) X 10*3/uL Lymphocytes # (0.90-5.00) X 10*3/uL Eosinophils # (0.04-0.35) X 10*3/uL Sodium 132 L (137-145) mmol/L BUN 22 H (7-17) mg/dL Creatinine 0.48 L (0.52-1.04) mg/dL POC Glucose (mg/dL) 160 H 128 H (70-110) mg/dL Calcium 8.1 L (8.4-10.2) mg/dL Total Protein 4.7 L (6.3-8.2) g/dL Albumin 2.1 L (3.5-5.0) g/dL 12/29/23 12/29/23 Range/Units 07:55 11:23 RBC 3.12 L (4.10-5.20) X 10*6/uL Hgb 10.0 L (12.0-15.0) g/dL Hct 30.6 L (37.2-46.3) % MCV 98.1 H (80.0-97.0) FL MCH 32.1 H (27.0-32.0) pg RDW 15.5 H (11.5-14.5) % Immature Gran # 0.12 H (0.00-0.04) X 10*3/uL Lymphocytes # 0.71 L (0.90-5.00) X 10*3/uL Eosinophils # 0 L (0.04-0.35) X 10*3/uL Sodium (137-145) mmol/L BUN (7-17) mg/dL Creatinine (0.52-1.04) mg/dL POC Glucose (mg/dL) 122 H (70-110) mg/dL Calcium (8.4-10.2) mg/dL Total Protein (6.3-8.2) g/dL Albumin (3.5-5.0) g/dL Assessment and Plan Time with Patient: Less than 30
[2023-12-30 01:01] LABS: Glucose,Whole Blood 154 mg/dL (70-110)
[2023-12-30 06:04] LABS: Glucose,Whole Blood 129 mg/dL (70-110)
[2023-12-30 06:04] LABS: Ionized Calcium 4.9 mg/dL (4.5-5.3)
[2023-12-30 06:13] LABS: African American GFR (CKD) >90 (>60 ml/min/1.73 sqM); Anion Gap 0 mmol/L; Blood Urea Nitrogen 22 mg/dL (7-17); Calcium 7.9 mg/dL (8.4-10.2); Carbon Dioxide 25 mmol/L (22-30); Chloride 109 mmol/L (98-107); Glucose 100 mg/dL (74-99); Non-African American GFR(CKD) >90 (>60 ml/min/1.73 sqM); Phosphorus 3.3 mg/dL (2.5-4.5); Potassium 4.2 mmol/L (3.5-5.1); Sodium 134 mmol/L (137-145)
[2023-12-30] MEDS ORDERED: PROPOFOL 10 MG/ML 20 ML VIAL IV ONE (08:11)
[2023-12-30] MEDS ORDERED: LIDOCAINE 2% (PF) 20 MG/ML 5 ML VIAL ONE (08:11)
[2023-12-30] MEDS: IV FLUID CONTINUATION 500 ML IV ONE (08:11)
--- NOTE | 2023-12-30 08:37 | P.PCN ---
Date of Procedure: 12/30/23 Procedure(s) Performed: Preoperative Dx: Dysphagia, GERD Postoperative Dx: Mild stricture distal esophagus, mild gastritis Procedure: EGD with Bx and dilation Anesthesia: Sedation Endoscopist: Dr. Lentz Specimens: Antrum Endoscopic Procedure: The patient was on the endoscopy table in the left decubitus position. The Olympus gastroscope was inserted into the oropharynx and passed under direct visualization to the region of the third portion of the duodenum. From that point the scope was slowly withdrawn inspecting all surfaces carefully. There were no neoplastic inflammatory or polypoid lesions throughout the duodenum. The pylorus was widely patent. The stomach was carefully inspected. There was mild gastritis present. There is appear to be some scarring in the prepyloric region possibly from prior ulcer disease. A biopsy of the antrum took place to rule out H. pylori. Retroflexion revealed a normal hiatus. The esophagus was then carefully examined. Upon initial insertion of the gastroscope the patient's esophagus especially distally appeared somewhat tight. He did seem to relax somewhat. This appeared most consistent with muscular hypertrophy and possible mild achalasia. As I pulled the scope back into the esophagus it again appeared slightly narrowed especially distally. The 12 to 15 mm balloon was utilized and sequentially inflated from 12-13 0.5 to 15 mm. Pressure was held for 1 minute. This was also performed in the midesophagus. No mucosal tears were seen. Following that we were able to pass the scope quite easily through both of those areas. The proximal esophagus appeared normal. The patient was then taken to the recovery room in stable condition per anesthesia guidelines. Recommendations: Patient with mild distal esophageal stricture but suspect much of this is related to spasticity. Balloon utilized for dilation. Resume diet. Continue TPN until patient with exceptional caloric intake.
[2023-12-30 11:26] LABS: Glucose,Whole Blood 137 mg/dL (70-110)
--- NOTE | 2023-12-30 12:44 | P.PN ---
Subjective Progress Note Date: 12/30/23 Principal diagnosis: Reason for follow-up is perforated diverticulitis and abscess Patient is a 78-year-old female with a past medical history significant for COPD hypertension rheumatoid arthritis presenting to the ER for evaluation of epigastric abdominal pain, patient did have a CT abdominal pelvis concerning for free subsequently taken to the OR status post laparotomy with evidence of perforated sigmoid diverticulitis status post sigmoid colectomy and end colostomy. Patient is status post EGD with biopsy and dilatation with evidence of mild stricture distal esophagus and mild gastritis completed on 12/30/2023 On today's visit 12/30/2023,the patient remains to be afebrile, patient is on room air not requiring supplemental oxygen and denies any shortness of breath no chest pain did have occasional.Patient denies having any nausea or vomiting, no abdominal pain and did have output in her colostomy mention she is tolerating a regular diet. The patient creatinine 0.53 Objective - Vital Signs Vital signs: Vital Signs Temp 97.9 F 12/30/23 07:00 Pulse 80 12/30/23 11:03 Resp 17 12/30/23 07:00 BP 158/71 12/30/23 07:00 Pulse Ox 99 12/30/23 07:00 FiO2 30 12/09/23 10:00 Intake & Output 12/29/23 12/30/23 12/30/23 18:59 06:59 18:59 Intake Total 3351.938 2316 100 Balance 7305.488 0170 100 Weight 40.5 kg 39.5 kg Intake: IV 100 Intake, IV Titration 5211.164 2010 Amount Cefepime 2 gm In Sodium 100 Chloride 0.9% 100 ml @ 25 mls/hr IVPB Q8H ANN Rx#: [id number] Mvi, Adult No.4 with Vit 9346.339 1733 K 10 ml Trace (Conc-1Ml/ Dose) 1 ml Potassium Chloride 10 meq Sodium Chloride 4Meq/ml Vial 68 meq In Amino Acid 5%-D20w +Lytes*E* 1,000 ml @ 52 mls/hr IV .[id number] ANN Rx #:[id number] metroNIDAZOLE-NS PMX 500 100 mg In Saline 1 100ml.bag @ 100 mls/hr IVPB Q8HR ANN Rx#:[id number] Other: Voiding Method Toilet Diaper # Voids 6 ABP, PAP, CO, CI - Last Documented Arterial Blood Pressure 119/92 - Exam GENERAL DESCRIPTION: An elderly female lying in bed in no distress RESPIRATORY SYSTEM: Unlabored breathing , decreased breath sounds at bases HEART: S1 S2 regular rate and rhythm , ABDOMEN: Soft , mild tenderness EXTREMITIES: No edema feet - Labs CBC & Chem 7: 12/29/23 07:55 12/30/23 05:32 Labs: Abnormal Lab Results - Last 24 Hours (Table) 12/30/23 12/30/23 12/30/23 Range/Units 00:59 05:32 06:00 Sodium 134 L (137-145) mmol/L Chloride 109 H (98-107) mmol/L BUN 22 H (7-17) mg/dL Glucose 100 H (74-99) mg/dL POC Glucose (mg/dL) 154 H 129 H (70-110) mg/dL Calcium 7.9 L (8.4-10.2) mg/dL 12/30/23 Range/Units 11:25 Sodium (137-145) mmol/L Chloride (98-107) mmol/L BUN (7-17) mg/dL Glucose (74-99) mg/dL POC Glucose (mg/dL) 137 H (70-110) mg/dL Calcium (8.4-10.2) mg/dL Assessment and Plan (1) Intra-abdominal abscess Current Visit: Yes Status: Acute Code(s): K65.1 - PERITONEAL ABSCESS SNOMED Code(s): 48043632 (2) Allergy to multiple antibiotics Current Visit: Yes Status: Acute Code(s): Z88.1 - ALLERGY STATUS TO OTHER ANTIBIOTIC AGENTS SNOMED Code(s): 731525960 (3) Perforated viscus Current Visit: Yes Status: Acute Code(s): R19.8 - OTH SYMPTOMS AND SIGNS INVOLVING THE DGSTV SYS AND ABDOMEN SNOMED Code(s): 535402943 Plan: 1patient presented to hospital with abdominal pain has been diagnosed with a perforated viscus in this patient was status post laparotomy with evidence of perforated sigmoid diverticulitis status post laparotomy sigmoid colectomy and end colostomy for likely organism need to cover will be enteric gram-negative both aerobes and anaerobes 2-patient did have repeat CT has with evidence of partial versus complete bowel obstruction NG has been placed which the patient has been tolerating 3-the patient remains to be afebrile, white count has been normal, patient did have a follow-up CT on 12/25/2023 and it shows improvement in the bowel dilatation pattern no abscess and did have EGD this morning with evidence of gastritis and did have some dilatation done 4- patient to continue with the cefepime and Flagyl while inpatient and about clinical course closely Dictation was produced using [employer] dictation software. please excuse any grammatical, word or spelling errors. Time with Patient: Less than 30
--- NOTE | 2023-12-30 12:52 | P.PN ---
Subjective Progress Note Date: 12/30/23 Principal diagnosis: Abdominal pain. The patient is seen today December 25, 2019 for follow-up on the regular medical floor. She is sitting up in bed. Awake and alert in no acute distress. Denies any worsening shortness of breath, cough or congestion. She is maintaining good O2 saturations in the 90s on room air. Chest x-ray reveals small bilateral effusions. Evidence of COPD. Nasogastric tube in good position. Right-sided PICC line in place. Follow-up CT scan of the abdomen pelvis revealed decrease in dilated loops of bowel throughout the abdomen compared to previous. Oral contrast extends to the rectum. Dilated bowel to 2.5 cm remains present. No transition point definitively visualized. Correlate for ileus and/or partial bowel obstruction. The gastric tube remains to wall suction. She remains on TPN for nutritional support. Remains on cefepime and Flagyl. Continued on bronchodilators. Sodium 133. Potassium 4.0. Bicarb 30. BUN 21. Creatinine 0.43. Glucose 95. The patient is seen today December 26, 2023 in follow-up on the regular medical floor. She is sitting up in bed. Awake and alert in no acute distress. She is maintaining good O2 saturations in the 90s on room air. Nasogastric tube remains in place. She is receiving TPN at 52 MLS per hour for nutritional support. She is continued on antibiotics in the form of cefepime and Flagyl. He is continued on bronchodilators. NicoDerm patch in place. Count 8.2. Hemoglobin 10.4. Platelets 294. Sodium 133. Potassium 3.7. Bicarb 29. BUN 18. Creatinine 0.42. Glucose 116. The patient is seen today December 27, 2023 in follow-up on the regular medical floor. She is currently resting comfortably in bed. Awake and alert in no acute distress. Maintaining O2 saturations in the 90s on room air. She is continued to have intermittent abdominal discomfort. Abdominal x-ray reveals that the air noted on the previous exam appeared to be superficial to the patient and likely within the ostomy bag. Contrast stenosis is seen to extend into the colon. Small bilateral pleural effusions. Nasogastric tube has been removed. Sodium 132. Potassium 5.0. Bicarb 27. BUN 27. Creatinine 0.55. Glucose 125. He remains on antibiotics in the form of cefepime and Flagyl. Continued on bronchodilators. NicoDerm patch in place. Heparin for DVT prophylaxis. The patient is seen today December 28, 2023 in follow-up on the regular medical floor. She is awake and alert in no acute distress. She has been up ambulating in the hallway and in her room with physical therapy assistance. Currently sitting up in a chair. Denies any worsening shortness of breath, cough or conge stion. She is maintaining O2 saturations in the 90s on room air. Her nasogastric tube is out. She is being nursed with TPN at 52 mL/h. Remains on antibiotics in the form of cefepime and Flagyl. Continued on bronchodilators. Heparin for DVT prophylaxis. The patient is seen today December 29, 2023 in follow-up on the regular medical floor. She is sitting up in a chair. Awake and alert in no acute distress. She denies any worsening shortness of breath, cough or congestion. She is maintaining O2 saturations in the 90s on room air. She has been advanced to clear liquid diet. She remains with supplemental nourishment and TPN at 52 MLS per hour. She is continued on cefepime and Flagyl. DuoNeb ventilations, Pulmicort and perform scintillations, Singulair. Heparin for DVT prophylaxis. NicoDerm patch in place. Progress note dated December 30, 2023. 78-year-old female who has not been in the hospital for 22 days. She is seen today room 456. She appears to be doing much better. She continues on cefepime and Flagyl. She had an EGD done today. She is on room air. She is not receiving any IV fluids. She is getting TPN at 52 cc an hour. The NG tube was removed a few days ago. Laboratory data includes a sodium 134, potassium 4.2, chlorides 109, CO2 25, BUN 22, creatinine 0.53. Glucose is 137. Magnesium 2, phosphorus 3.3, and calcium 7.9. Previous culture data includes anaerobic gram- negative bacilli 2 different species, from December 08, and a wound culture that was positive for both Escherichia coli, and alphahemolytic Streptococcus. The EGD today, showed mild stricture of the distal esophagus, and mild gastritis. The patient did undergo biopsy, and dilatation. Objective - Vital Signs Vital signs: Vital Signs Temp 97.9 F 12/30/23 07:00 Pulse 80 12/30/23 11:03 Resp 17 12/30/23 07:00 BP 158/71 12/30/23 07:00 Pulse Ox 99 12/30/23 07:00 FiO2 30 12/09/23 10:00 Intake & Output 12/29/23 12/30/23 12/30/23 18:59 06:59 18:59 Intake Total 0678.377 1877 100 Balance 3912.921 8179 100 Weight 40.5 kg 39.5 kg Intake: IV 100 Intake, IV Titration 1562.451 5741 Amount Cefepime 2 gm In Sodium 100 Chloride 0.9% 100 ml @ 25 mls/hr IVPB Q8H ANN Rx#: [id number] Mvi, Adult No.4 with Vit 2088.639 7364 K 10 ml Trace (Conc-1Ml/ Dose) 1 ml Potassium Chloride 10 meq Sodium Chloride 4Meq/ml Vial 68 meq In Amino Acid 5%-D20w +Lytes*E* 1,000 ml @ 52 mls/hr IV .[id number] ANN Rx #:[id number] metroNIDAZOLE-NS PMX 500 100 mg In Saline 1 100ml.bag @ 100 mls/hr IVPB Q8HR ANN Rx#:[id number] Other: Voiding Method Toilet Diaper # Voids 6 ABP, PAP, CO, CI - Last Documented Arterial Blood Pressure 119/92 - Exam No acute distress, oriented 3. Not on any supplemental oxygen. HEENT examination is grossly unremarkable. Mucous membranes are moist. No oral lesions. Neck supple. Full range of motion. No adenopathy thyromegaly or neck vein distention. Cardiovascular examination reveals regular rhythm rate. S1-S2 normal. No S3 or S4. No discernible murmur noted. Heart rate 80 bpm. Lungs reveal clear breath sounds. Breath sounds are equal bilaterally. No adventitious lung sounds including wheezes rhonchi or crackles. Abdomen soft bowel sounds are heard. No masses or tenderness. Extremities are intact. No cyanosis clubbing or edema. Skin is without rash or lesion. Neurologic examination is brief but nonfocal. - Labs CBC & Chem 7: 12/29/23 07:55 12/30/23 05:32 Labs: Abnormal Lab Results - Last 24 Hours (Table) 12/30/23 12/30/2324 Range/Units 00:59 05:32 06:00 Sodium 134 L (137-145) mmol/L Chloride 109 H (98-107) mmol/L BUN 22 H (7-17) mg/dL Glucose 100 H (74-99) mg/dL POC Glucose (mg/dL) 154 H 129 H (70-110) mg/dL Calcium 7.9 L (8.4-10.2) mg/dL 12/30/23 Range/Units 11:25 Sodium (137-145) mmol/L Chloride (98-107) mmol/L BUN (7-17) mg/dL Glucose (74-99) mg/dL POC Glucose (mg/dL) 137 H (70-110) mg/dL Calcium (8.4-10.2) mg/dL Assessment and Plan Assessment: Severe acute abdominal pain secondary to perforated sigmoid diverticulitis. Status post exploratory laparotomy, sigmoid colectomy, end colostomy on December 08, 2023. Most recent CT scan of the abdomen reveals ileus versus partial small bowel obstruction. Plan is for conservative management. Nasogastric tube removed. Continued on TPN via PICC line. Acute hypoxemic respiratory failure secondary to above requiring prolonged ventilation. Severe protein calorie malnutrition with a BMI of less than 20 kg/m. History of gastric ulcers and esophagitis. History of rheumatoid arthritis. History of chronic obstructive pulmonary disease. History of chronic tobacco dependence. History of hypertension. History of hyperlipidemia. History of gastroesophageal reflux disease. Plan: Plan dated December 30, 2023. The patient is seen today in room 456. The patient is currently on cefepime and Flagyl. She is on room air. No NG tube. The patient is getting TPN at 52 cc an hour. The patient had an EGD today which showed some mild gastritis, and also, a slight stricture of the distal esophagus. Labs, x-rays, and medications are reviewed. Clinically, the patient appears to be doing relatively well. She has not been in the hospital for 22 days. Labs, x-rays, medications are reviewed. We will continue to follow make recommendations along the way. Time with Patient: Less than 30
--- NOTE | 2023-12-30 15:59 | P.PN ---
Subjective Progress Note Date: 12/30/23 This is a 78-year-old female who has been followed by Dr. Elizabeth admitted for perforated sigmoid diverticulitis went for surgical repair/sigmoid colectomy with end colostomy. Patient continues on the medical floor remains n.p.o. with an NG tube in place. Repeat abdominal CT shows concern for complete bowel obstruction there is stool noted in the colostomy. Patient has positive bowel sounds throughout. She continues on antibiotics in the form of IV cefepime and IV Flagyl remains on parenteral nutrition. She received a dose of IV Lasix one- time yesterday. Potassium today 3.3. Sodium 133. 12/25/2023 Patient evaluated today resting in bed. She is reporting some increased abdominal pain and overall not feeling well. She is currently undergoing a repeat abdominal CT scan and has received the contrast. NG tube remains in place currently clamped. She does have positive bowel sounds and has some small amount of brown stool in the ostomy. Patient received a dose of IV Lasix 2 days ago for the small bilateral pleural effusions which are essentially stable at this time. Her sodium level is 133. Remains on TPN. 12/26/2023 Patient evaluated today resting in bed. She continues to report abdominal discomfort and today states that she feels nauseous. Zofran has been ordered. There continues to be a small amount of stool in the ostomy bag. A repeat abdominal pelvis CT was completed showing decrease in dilated loops of bowel throughout the abdomen comparing to immediate priors. Oral contrast extends to the rectum correlate for ileus and/or partial bowel obstruction. NG tube rem ains in place with output of 100 MLS overnight of gastric drainage. Patient remains on IV Flagyl and IV cefepime. Remains on TPN. 12/27/2023 Patient is evaluated today sitting up at the bedside. She is continue to have stool through the ostomy. NG tube has removed today and patient is started on clear liquid diet. He remains hyponatremic this is likely from the TPN. Remains on IV cefepime and IV Flagyl. She reports that her nausea has resolved. 12/28/2023 Patient on the medical floor, has been up to the bathroom and able to take a shower today. NG tube remains out and patient continues on clear liquid diet. No reports of nausea overnight. Abdominal pain is managed and continues on morphine and percocet. Remains on TPN as patient had difficulty with advancing diet to full liquid. 12/29/2023 Patient evaluated today sitting up in the chair. Has increased output from the ostomy and increased urine output. No shortness of breath no chest pain no nausea vomiting or diarrhea. NG tube has been out patient is been maintained on a clear liquid diet states that she is having difficulty with a full liquid diet feels like it is getting stuck and she is unable to swallow it down. 12/30/2023 Patient is evaluated today sitting up in the chair. She is underwent modified barium swallow yesterday revealing esophageal stricture and subsequently underwent an EGD with biopsy and dilation with general surgery. She has been upgraded to a full liquid diet and states that she has tolerated it well this morning. General surgery recommending to continue on the TPN until patient is tolerating increased oral intake. Her sodium today is improved to 134 renal function remains stable. She is making adequate stool from the ostomy. Review of Systems Constitutional: Denied any fatigue denied any fever. Cardio vascular: denied any chest pain, palpitations Gastrointestinal: denied any nausea, vomiting, diarrhea Pulmonary: Denied any shortness of breath cough Neurologic denied any new focal deficits All inpatient medications were reviewed and appropriate changes in these medications as dictated in the interval history and assessment and plan. PHYSICAL EXAMINATION: GENERAL: The patient is alert and oriented x3, not in any acute distress. Well developed, well nourished. HEENT: Pupils are round and equally reacting to light. EOMI. No scleral icterus. No conjunctival pallor. Normocephalic, atraumatic. No pharyngeal erythema. No thyromegaly. CARDIOVASCULAR: S1 and S2 present. No murmurs, rubs, or gallops. PULMONARY: Chest is clear to auscultation, no wheezing or crackles. ABDOMEN: Soft, nontender, nondistended, normoactive bowel sounds. No palpable organomegaly. NG tube in place. Midline dressing intact. ostomy present left lower quad with brown liquid stool in ostomy. MUSCULOSKELETAL: No joint swelling or deformity. EXTREMITIES: No cyanosis, clubbing, or pedal edema. NEUROLOGICAL: Gross neurological examination did not reveal any focal deficits. SKIN: No rashes. Assessment and plan: -Acute sigmoid diverticulitis with perforation status post sigmoid resection and colostomy formation on December 08, cultures growing E. coli and alphahemolytic Streptococcus -Secondary peritonitis from hollow viscus perforation, IV cefepime and IV Flagyl. ID following -Bowel obstruction vs ileus improved and NG tube has been removed patient is started on diet -Dysphagia after NG tube removal, patient had a esophageal stricture and is status post esophageal dilation with biopsies and is now tolerating a full liquid diet patient will continue on TPN until she is tolerating increased oral intake. -Urinary retention resolved at this time. -Anterior chest wall pain. Non-ST elevation SC. Type II. -Hypertensive heart disease. Severe LVH on echo. -Bilateral pleural effusions received a dose of IV Lasix, monitoring off of diuretic -Severe hypokalemia: resolved, continue to monitor and supplement per protocol -COPD and a current smoker continue current home regimen -Hyperlipidemia -Severe protein calorie malnutrition. BMI 18.3. -Chronic muscle spasm -Peptic ulcer disease -Essential hypertension. GI prophylaxis DVT prophylaxis Full Code Patient will require subacute rehab on discharge. Continue with incentive spirometer 10 x an hour while awake, continue on TPN through PICC line. On full liquid diet Continue antibiotics. Recommend to repeat labs in the morning and encourage increasing activity level. Pulmonary and infectious disease are following. The impression and plan of care has been dictated by Alee Landis, Nurse Practitioner as directed. Dr. Ferdinand MD I have performed a history and physical examination and medical decision making of this patient, discussed the same with the dictator, and agree with the dictators assessment and plan as written, documented as a scribe. Based on total visit time, I have performed more than 50% of this visit. Objective - Vital Signs Vital signs: Vital Signs Temp 97.9 F 12/30/23 07:00 Pulse 80 12/30/23 15:49 Resp 18 12/30/23 13:31 BP 147/64 12/30/23 13:31 Pulse Ox 97 12/30/23 13:31 FiO2 30 12/09/23 10:00 Intake & Output 12/29/23 12/30/23 12/30/23 18:59 06:59 18:59 Intake Total 2274.394 7170 100 Balance 8195.459 9519 100 Weight 40.5 kg 39.5 kg Intake: IV 100 Intake, IV Titration 2018.435 3180 Amount Cefepime 2 gm In Sodium 100 Chloride 0.9% 100 ml @ 25 mls/hr IVPB Q8H [facility] Rx#: [id number] Mvi, Adult No.4 with Vit 7871.103 0771 K 10 ml Trace (Conc-1Ml/ Dose) 1 ml Potassium Chloride 10 meq Sodium Chloride 4Meq/ml Vial 68 meq In Amino Acid 5%-D20w +Lytes*E* 1,000 ml @ 52 mls/hr IV .[id number] [facility] Rx #:[id number] metroNIDAZOLE-NS PMX 500 100 mg In Saline 1 100ml.bag @ 100 mls/hr IVPB Q8HR [facility] Rx#:[id number] Other: Voiding Method Toilet Diaper # Voids 6 ABP, PAP, CO, CI - Last Documented Arterial Blood Pressure 119/92 - Labs CBC & Chem 7: 12/29/23 07:55 12/30/23 05:32 Labs: Abnormal Lab Results - Last 24 Hours (Table) 12/30/23 12/30/23 12/30/23 Range/Units 00:59 05:32 06:00 Sodium 134 L (137-145) mmol/L Chloride 109 H (98-107) mmol/L BUN 22 H (7-17) mg/dL Glucose 100 H (74-99) mg/dL POC Glucose (mg/dL) 154 H 129 H (70-110) mg/dL Calcium 7.9 L (8.4-10.2) mg/dL 12/30/23 Range/Units 11:25 Sodium (137-145) mmol/L Chloride (98-107) mmol/L BUN (7-17) mg/dL Glucose (74-99) mg/dL POC Glucose (mg/dL) 137 H (70-110) mg/dL Calcium (8.4-10.2) mg/dL Assessment and Plan Time with Patient: Less than 30
[2023-12-30 16:44] LABS: Glucose,Whole Blood 118 mg/dL (70-110)
[2023-12-30] MEDS: CEFEPIME 2 GM in SODIUM CHLORIDE 0.9% 100 ML IVPB SCH (18:02)
[2023-12-30 20:41] LABS: Glucose,Whole Blood 121 mg/dL (70-110)
[2023-12-31 01:54] LABS: Glucose,Whole Blood 125 mg/dL (70-110)
[2023-12-31 06:11] LABS: Glucose,Whole Blood 111 mg/dL (70-110)
[2023-12-31 06:48] LABS: African American GFR (CKD) >90 (>60 ml/min/1.73 sqM); Anion Gap -1 mmol/L; Blood Urea Nitrogen 20 mg/dL (7-17); Calcium 7.9 mg/dL (8.4-10.2); Carbon Dioxide 26 mmol/L (22-30); Chloride 109 mmol/L (98-107); Glucose 102 mg/dL (74-99); Magnesium 1.9 mg/dL (1.6-2.3); Non-African American GFR(CKD) >90 (>60 ml/min/1.73 sqM); Phosphorus 3.2 mg/dL (2.5-4.5); Potassium 4.4 mmol/L (3.5-5.1); Sodium 134 mmol/L (137-145)
--- NOTE | 2023-12-31 11:34 | P.PN ---
Subjective Progress Note Date: 12/31/23 Principal diagnosis: Reason for follow-up is perforated diverticulitis and abscess Patient is a 78-year-old female with a past medical history significant for COPD hypertension rheumatoid arthritis presenting to the ER for evaluation of epigastric abdominal pain, patient did have a CT abdominal pelvis concerning for free subsequently taken to the OR status post laparotomy with evidence of perforated sigmoid diverticulitis status post sigmoid colectomy and end colostomy. Patient is status post EGD with biopsy and dilatation with evidence of mild stricture distal esophagus and mild gastritis completed on 12/30/2023 On today's visit 12/31/2023, the patient continues to be afebrile, the patient is on room air and breathing comfortably, the Pt denies having any chest pain did have occasional cough, the patient denies having any abdominal pain no vomiting tolerating her diet and did have output in her colostomy. Patient did have a creatinine 0.53 white count was 6.98 as of yesterday Objective - Vital Signs Vital signs: Vital Signs Temp 98.2 F 12/31/23 07:40 Pulse 84 12/31/23 08:01 Resp 18 12/31/23 08:00 BP 151/85 12/31/23 07:40 Pulse Ox 98 12/31/23 07:40 FiO2 30 12/09/23 10:00 Intake & Output 12/30/23 12/31/23 12/31/23 18:59 06:59 18:59 Intake Total 100 1033 Output Total 100 Balance 100 933 Weight 31 kg Intake: IV 100 Intake, IV Titration 1033 Amount Mvi, Adult No.4 with Vit 1033 K 10 ml Trace (Conc-1Ml/ Dose) 1 ml Potassium Chloride 10 meq Sodium Chloride 4Meq/ml Vial 68 meq In Amino Acid 5%-D20w +Lytes*E* 1,000 ml @ 52 mls/hr IV .[id number] [facility] Rx #:[id number] Output: Stool 100 Other: Voiding Method Toilet Toilet Diaper Diaper # Voids 6 2 ABP, PAP, CO, CI - Last Documented Arterial Blood Pressure 119/92 - Exam GENERAL DESCRIPTION: An elderly female lying in bed in no distress RESPIRATORY SYSTEM: Unlabored breathing , decreased breath sounds at bases HEART: S1 S2 regular rate and rhythm , ABDOMEN: Soft , mild tenderness EXTREMITIES: No edema feet - Labs CBC & Chem 7: 12/29/23 07:55 12/31/23 05:59 Labs: Abnormal Lab Results - Last 24 Hours (Table) 12/30/23 12/30/23 12/31/23 Range/Units 16:43 20:40 01:53 Sodium (137-145) mmol/L Chloride (98-107) mmol/L BUN (7-17) mg/dL Glucose (74-99) mg/dL POC Glucose (mg/dL) 118 H 121 H 125 H (70-110) mg/dL Calcium (8.4-10.2) mg/dL 12/31/23 12/31/23 Range/Units 05:59 06:10 Sodium 134 L (137-145) mmol/L Chloride 109 H (98-107) mmol/L BUN 20 H (7-17) mg/dL Glucose 102 H (74-99) mg/dL POC Glucose (mg/dL) 111 H (70-110) mg/dL Calcium 7.9 L (8.4-10.2) mg/dL Assessment and Plan (1) Intra-abdominal abscess Current Visit: Yes Status: Acute Code(s): K65.1 - PERITONEAL ABSCESS SNOMED Code(s): 20913435 (2) Allergy to multiple antibiotics Current Visit: Yes Status: Acute Code(s): Z88.1 - ALLERGY STATUS TO OTHER ANTIBIOTIC AGENTS SNOMED Code(s): 026231769 (3) Perforated viscus Current Visit: Yes Status: Acute Code(s): R19.8 - OTH SYMPTOMS AND SIGNS INVOLVING THE DGSTV SYS AND ABDOMEN SNOMED Code(s): 933934489 Plan: 1patient presented to hospital with abdominal pain has been diagnosed with a perforated viscus in this patient was status post laparotomy with evidence of perforated sigmoid diverticulitis status post laparotomy sigmoid colectomy and end colostomy for likely organism need to cover will be enteric gram-negative both aerobes and anaerobes 2-patient did have repeat CT has with evidence of partial versus complete bowel obstruction NG has been placed which the patient has been tolerating 3-the patient remains to be afebrile, white count has been normal, patient did have a follow-up CT on 12/25/2023 and it shows improvement in the bowel dil atation pattern no abscess and did have EGD with evidence of gastritis and did have some dilatation done 4- patient slowly clinically improving, continue with the cefepime and Flagyl and monitor clinical course closely Dictation was produced using pushd dictation software. please excuse any gramm atical, word or spelling errors.
[2023-12-31 11:36] LABS: Glucose,Whole Blood 118 mg/dL (70-110)
--- NOTE | 2023-12-31 12:42 | P.PN ---
Subjective Progress Note Date: 12/31/23 Principal diagnosis: Abdominal pain. The patient is seen today December 25, 2019 for follow-up on the regular medical floor. She is sitting up in bed. Awake and alert in no acute distress. Denies any worsening shortness of breath, cough or congestion. She is maintaining good O2 saturations in the 90s on room air. Chest x-ray reveals small bilateral effusions. Evidence of COPD. Nasogastric tube in good position. Right-sided PICC line in place. Follow-up CT scan of the abdomen pelvis revealed decrease in dilated loops of bowel throughout the abdomen compared to previous. Oral contrast extends to the rectum. Dilated bowel to 2.5 cm remains present. No transition point definitively visualized. Correlate for ileus and/or partial bowel obstruction. The gastric tube remains to wall suction. She remains on TPN for nutritional support. Remains on cefepime and Flagyl. Continued on bronchodilators. Sodium 133. Potassium 4.0. Bicarb 30. BUN 21. Creatinine 0.43. Glucose 95. The patient is seen today December 26, 2023 in follow-up on the regular medical floor. She is sitting up in bed. Awake and alert in no acute distress. She is maintaining good O2 saturations in the 90s on room air. Nasogastric tube remains in place. She is receiving TPN at 52 MLS per hour for nutritional support. She is continued on antibiotics in the form of cefepime and Flagyl. He is continued on bronchodilators. NicoDerm patch in place. Count 8.2. Hemoglobin 10.4. Platelets 294. Sodium 133. Potassium 3.7. Bicarb 29. BUN 18. Creatinine 0.42. Glucose 116. The patient is seen today December 27, 2023 in follow-up on the regular medical floor. She is currently resting comfortably in bed. Awake and alert in no acute distress. Maintaining O2 saturations in the 90s on room air. She is continued to have intermittent abdominal discomfort. Abdominal x-ray reveals that the air noted on the previous exam appeared to be superficial to the patient and likely within the ostomy bag. Contrast stenosis is seen to extend into the colon. Small bilateral pleural effusions. Nasogastric tube has been removed. Sodium 132. Potassium 5.0. Bicarb 27. BUN 27. Creatinine 0.55. Glucose 125. He remains on antibiotics in the form of cefepime and Flagyl. Continued on bronchodilators. NicoDerm patch in place. Heparin for DVT prophylaxis. The patient is seen today December 28, 2023 in follow-up on the regular medical floor. She is awake and alert in no acute distress. She has been up ambulating in the hallway and in her room with physical therapy assistance. Currently sitting up in a chair. Denies any worsening shortness of breath, cough or conge stion. She is maintaining O2 saturations in the 90s on room air. Her nasogastric tube is out. She is being nursed with TPN at 52 mL/h. Remains on antibiotics in the form of cefepime and Flagyl. Continued on bronchodilators. Heparin for DVT prophylaxis. The patient is seen today December 29, 2023 in follow-up on the regular medical floor. She is sitting up in a chair. Awake and alert in no acute distress. She denies any worsening shortness of breath, cough or congestion. She is maintaining O2 saturations in the 90s on room air. She has been advanced to clear liquid diet. She remains with supplemental nourishment and TPN at 52 MLS per hour. She is continued on cefepime and Flagyl. DuoNeb ventilations, Pulmicort and perform scintillations, Singulair. Heparin for DVT prophylaxis. NicoDerm patch in place. Progress note dated December 30, 2023. 78-year-old female who has not been in the hospital for 22 days. She is seen today room 456. She appears to be doing much better. She continues on cefepime and Flagyl. She had an EGD done today. She is on room air. She is not receiving any IV fluids. She is getting TPN at 52 cc an hour. The NG tube was removed a few days ago. Laboratory data includes a sodium 134, potassium 4.2, chlorides 109, CO2 25, BUN 22, creatinine 0.53. Glucose is 137. Magnesium 2, phosphorus 3.3, and calcium 7.9. Previous culture data includes anaerobic gram- negative bacilli 2 different species, from December 08, and a wound culture that was positive for both Escherichia coli, and alphahemolytic Streptococcus. The EGD today, showed mild stricture of the distal esophagus, and mild gastritis. The patient did undergo biopsy, and dilatation. Progress note dated December 31, 2023. 78-year-old female has been in the hospital now for 23 days. The patient is currently on room air. She is not receiving any IV fluids, other than her TPN at 52 cc an hour. She continues on cefepime and Flagyl. Clinically, she looks well, and she states that she may be discharged, on Tuesday. Current labs include a sodium 134, potassium 4.4, chlorides 109, CO2 26, BUN 20, creatinine 0.53. Calcium is 7.9. Phosphorus 3.2, and magnesium 1.9. Objective - Vital Signs Vital signs: Vital Signs Temp 98.2 F 12/31/23 07:40 Pulse 80 12/31/23 11:50 Resp 18 12/31/23 08:00 BP 151/85 12/31/23 07:40 Pulse Ox 98 12/31/23 07:40 FiO2 30 12/09/23 10:00 Intake & Output 12/30/23 12/31/23 12/31/23 18:59 06:59 18:59 Intake Total 100 1033 Output Total 100 Balance 100 933 Weight 31 kg Intake: IV 100 Intake, IV Titration 1033 Amount Mvi, Adult No.4 with Vit 1033 K 10 ml Trace (Conc-1Ml/ Dose) 1 ml Potassium Chloride 10 meq Sodium Chloride 4Meq/ml Vial 68 meq In Amino Acid 5%-D20w +Lytes*E* 1,000 ml @ 52 mls/hr IV .[id number] [facility] Rx #:[id number] Output: Stool 100 Other: Voiding Method Toilet Toilet Diaper Diaper # Voids 6 2 ABP, PAP, CO, CI - Last Documented Arterial Blood Pressure 119/92 - Exam No acute distress, oriented 3. Not on any supplemental oxygen. HEENT examination is grossly unremarkable. Mucous membranes are moist. No oral lesions. Neck supple. Full range of motion. No adenopathy thyromegaly or neck vein distention. Cardiovascular examination reveals regular rhythm rate. S1-S2 normal. No S3 or S4. No discernible murmur noted. Heart rate 80 bpm. Lungs reveal clear breath sounds. Breath sounds are equal bilaterally. No adventitious lung sounds including wheezes rhonchi or crackles. Saturations are in the mid to high 90s. Abdomen soft bowel sounds are heard. No masses or tenderness. Extremities are intact. No cyanosis clubbing or edema. Skin is without rash or lesion. Neurologic examination is brief but nonfocal. - Labs CBC & Chem 7: 12/29/23 07:55 12/31/23 05:59 Labs: Abnormal Lab Results - Last 24 Hours (Table) 12/30/23 12/30/23 12/31/23 Range/Units 16:43 20:40 01:53 Sodium (137-145) mmol/L Chloride (98-107) mmol/L BUN (7-17) mg/dL Glucose (74-99) mg/dL POC Glucose (mg/dL) 118 H 121 H 125 H (70-110) mg/dL Calcium (8.4-10.2) mg/dL 12/31/23 12/31/23 12/31/23 Range/Units 05:59 06:10 11:35 Sodium 134 L (137-145) mmol/L Chloride 109 H (98-107) mmol/L BUN 20 H (7-17) mg/dL Glucose 102 H (74-99) mg/dL POC Glucose (mg/dL) 111 H 118 H (70-110) mg/dL Calcium 7.9 L (8.4-10.2) mg/dL Assessment and Plan Assessment: Severe acute abdominal pain secondary to perforated sigmoid diverticulitis. Status post exploratory laparotomy, sigmoid colectomy, end colostomy on December 08, 2023. Most recent CT scan of the abdomen reveals ileus versus partial small bowel obstruction. Plan is for conservative management. Nasogastric tube removed. Continued on TPN via PICC line. Acute hypoxemic respiratory failure secondary to above requiring prolonged ventilation. Severe protein calorie malnutrition with a BMI of less than 20 kg/m. History of gastric ulcers and esophagitis. History of rheumatoid arthritis. History of chronic obstructive pulmonary disease. History of chronic tobacco dependence. History of hypertension. History of hyperlipidemia. History of gastroesophageal reflux disease. Plan: Plan dated December 30, 2023. The patient is seen today in room 456. The patient is currently on cefepime and Flagyl. She is on room air. No NG tube. The patient is getting TPN at 52 cc an hour. The patient had an EGD today which showed some mild gastritis, and also, a slight stricture of the distal esophagus. Labs, x-rays, and medications are reviewed. Clinically, the patient appears to be doing relatively well. She has not been in the hospital for 22 days. Labs, x-rays, medications are reviewed. We will continue to follow make recommendations along the way. Plan dated December 31, 2023. The patient is seen today in room 456. She sitting in the chair next to her hospital bed. She is not requiring any supplemental oxygen. Saturations were in the mid to high 90s. She is not receiving any IV fluids, other than her TPN at 52 cc an hour. The patient continues on cefepime and Flagyl. She is hoping to be discharged from the hospital on Tuesday. Labs, x-rays, and medications are reviewed. Prognosis is guarded. Time with Patient: Less than 30
--- NOTE | 2023-12-31 12:59 | P.PN ---
Subjective Progress Note Date: 12/31/23 This is a 78-year-old female who has been followed by Dr. Elizabeth admitted for perforated sigmoid diverticulitis went for surgical repair/sigmoid colectomy with end colostomy. Patient continues on the medical floor remains n.p.o. with an NG tube in place. Repeat abdominal CT shows concern for complete bowel obstruction there is stool noted in the colostomy. Patient has positive bowel sounds throughout. She continues on antibiotics in the form of IV cefepime and IV Flagyl remains on parenteral nutrition. She received a dose of IV Lasix one- time yesterday. Potassium today 3.3. Sodium 133. 12/25/2023 Patient evaluated today resting in bed. She is reporting some increased abdominal pain and overall not feeling well. She is currently undergoing a repeat abdominal CT scan and has received the contrast. NG tube remains in place currently clamped. She does have positive bowel sounds and has some small amount of brown stool in the ostomy. Patient received a dose of IV Lasix 2 days ago for the small bilateral pleural effusions which are essentially stable at this time. Her sodium level is 133. Remains on TPN. 12/26/2023 Patient evaluated today resting in bed. She continues to report abdominal discomfort and today states that she feels nauseous. Zofran has been ordered. There continues to be a small amount of stool in the ostomy bag. A repeat abdominal pelvis CT was completed showing decrease in dilated loops of bowel throughout the abdomen comparing to immediate priors. Oral contrast extends to the rectum correlate for ileus and/or partial bowel obstruction. NG tube rem ains in place with output of 100 MLS overnight of gastric drainage. Patient remains on IV Flagyl and IV cefepime. Remains on TPN. 12/27/2023 Patient is evaluated today sitting up at the bedside. She is continue to have stool through the ostomy. NG tube has removed today and patient is started on clear liquid diet. He remains hyponatremic this is likely from the TPN. Remains on IV cefepime and IV Flagyl. She reports that her nausea has resolved. 12/28/2023 Patient on the medical floor, has been up to the bathroom and able to take a shower today. NG tube remains out and patient continues on clear liquid diet. No reports of nausea overnight. Abdominal pain is managed and continues on morphine and percocet. Remains on TPN as patient had difficulty with advancing diet to full liquid. 12/29/2023 Patient evaluated today sitting up in the chair. Has increased output from the ostomy and increased urine output. No shortness of breath no chest pain no nausea vomiting or diarrhea. NG tube has been out patient is been maintained on a clear liquid diet states that she is having difficulty with a full liquid diet feels like it is getting stuck and she is unable to swallow it down. 12/30/2023 Patient is evaluated today sitting up in the chair. She is underwent modified barium swallow yesterday revealing esophageal stricture and subsequently underwent an EGD with biopsy and dilation with general surgery. She has been upgraded to a full liquid diet and states that she has tolerated it well this morning. General surgery recommending to continue on the TPN until patient is tolerating increased oral intake. Her sodium today is improved to 134 renal function remains stable. She is making adequate stool from the ostomy. 12/31/2023 Patient evaluated today sitting up in the chair. Tolerating full liquid diet. Continues on TPN pending increasing oral intake. Sodium remains stable at 134. Continues to have adequate stool from the ostomy. Hemodynamically she is stable. Review of Systems Constitutional: Denied any fatigue denied any fever. Cardio vascular: denied any chest pain, palpitations Gastrointestinal: denied any nausea, vomiting, diarrhea Pulmonary: Denied any shortness of breath cough Neurologic denied any new focal deficits All inpatient medications were reviewed and appropriate changes in these medications as dictated in the interval history and assessment and plan. PHYSICAL EXAMINATION: GENERAL: The patient is alert and oriented x3, not in any acute distress. Well developed, well nourished. HEENT: Pupils are round and equally reacting to light. EOMI. No scleral icterus. No conjunctival pallor. Normocephalic, atraumatic. No pharyngeal erythema. No thyromegaly. CARDIOVASCULAR: S1 and S2 present. No murmurs, rubs, or gallops. PULMONARY: Chest is clear to auscultation, no wheezing or crackles. ABDOMEN: Soft, nontender, nondistended, normoactive bowel sounds. No palpable organomegaly. NG tube in place. Midline dressing intact. ostomy present left lower quad with brown liquid stool in ostomy. MUSCULOSKELETAL: No joint swelling or deformity. EXTREMITIES: No cyanosis, clubbing, or pedal edema. NEUROLOGICAL: Gross neurological examination did not reveal any focal deficits. SKIN: No rashes. Assessment and plan: -Acute sigmoid diverticulitis with perforation status post sigmoid resection and colostomy formation on December 08, cultures growing E. coli and alphahemolytic Streptococcus -Secondary peritonitis from hollow viscus perforation, IV cefepime and IV Flagyl. ID following -Bowel obstruction vs ileus improved and NG tube has been removed patient is started on diet and upgraded to full liquid. -Dysphagia after NG tube removal, patient had a esophageal stricture and is status post esophageal dilation with biopsies and is now tolerating a full liquid diet patient will continue on TPN until she is tolerating increased oral intake. -Urinary retention resolved at this time. -Anterior chest wall pain. Non-ST elevation [place]. Type II. -Hypertensive heart disease. Severe LVH on echo. -Bilateral pleural effusions received a dose of IV Lasix, monitoring off of diuretic -Severe hypokalemia: resolved, continue to monitor and supplement per protocol -COPD and a current smoker continue current home regimen -Hyperlipidemia -Severe protein calorie malnutrition. BMI 18.3. -Chronic muscle spasm -Peptic ulcer disease -Essential hypertension. GI prophylaxis DVT prophylaxis Full Code Patient will require subacute rehab on discharge. Continue with incentive spirometer 10 x an hour while awake, continue on TPN through PICC line. On full liquid diet Continue antibiotics. Recommend to repeat labs in the morning and encourage increasing activity level. Pulmonary and infectious disease are following. The impression and plan of care has been dictated by Alee Landis Nurse Practitioner as directed. Dr. Ferdinand MD I have performed a history and physical examination and medical decision making of this patient, discussed the same with the dictator, and agree with the dictators assessment and plan as written, documented as a scribe. Based on total visit time, I have performed more than 50% of this visit. Objective - Vital Signs Vital signs: Vital Signs Temp 98.2 F 12/31/23 07:40 Pulse 80 12/31/23 11:50 Resp 18 12/31/23 08:00 BP 151/85 12/31/23 07:40 Pulse Ox 98 12/31/23 07:40 FiO2 30 12/09/23 10:00 Intake & Output 12/30/23 12/31/23 12/31/23 18:59 06:59 18:59 Intake Total 100 1033 Output Total 100 Balance 100 933 Weight 31 kg Intake: IV 100 Intake, IV Titration 1033 Amount Mvi, Adult No.4 with Vit 1033 K 10 ml Trace (Conc-1Ml/ Dose) 1 ml Potassium Chloride 10 meq Sodium Chloride 4Meq/ml Vial 68 meq In Amino Acid 5%-D20w +Lytes*E* 1,000 ml @ 52 mls/hr IV .[id number] Rx #:[id number] Output: Stool 100 Other: Voiding Method Toilet Toilet Diaper Diaper # Voids 6 2 ABP, PAP, CO, CI - Last Documented Arterial Blood Pressure 119/92 - Labs CBC & Chem 7: 12/29/23 07:55 12/31/23 05:59 Labs: Abnormal Lab Results - Last 24 Hours (Table) 12/30/23 12/30/23 12/31/23 Range/Units 16:43 20:40 01:53 Sodium (137-145) mmol/L Chloride (98-107) mmol/L BUN (7-17) mg/dL Glucose (74-99) mg/dL POC Glucose (mg/dL) 118 H 121 H 125 H (70-110) mg/dL Calcium (8.4-10.2) mg/dL 12/31/23 12/31/23 12/31/23 Range/Units 05:59 06:10 11:35 Sodium 134 L (137-145) mmol/L Chloride 109 H (98-107) mmol/L BUN 20 H (7-17) mg/dL Glucose 102 H (74-99) mg/dL POC Glucose (mg/dL) 111 H 118 H (70-110) mg/dL Calcium 7.9 L (8.4-10.2) mg/dL Assessment and Plan Time with Patient: Less than 30
--- NOTE | 2023-12-31 16:04 | P.PN ---
Subjective Progress Note Date: 12/31/23 HISTORY OF PRESENT ILLNESS: Patient is status post exploratory laparotomy, sigmoid colectomy and end colostomy on 12/08/23. No acute events overnight PHYSICAL EXAM: VITAL SIGNS: Reviewed. GENERAL: Well-developed in no acute distress. ABDOMEN: Nondistended. Tenderness at incision site. Incision clean dry intact. James in place. Stool present in ostomy bag NEUROLOGIC: Alert and oriented. Cranial nerves II through XII grossly intact. ASSESSMENT: 1. Perforated sigmoid diverticulitis status post exploratory laparotomy, sigmoid colectomy with end colostomy 2. Small bowel obstruction versus ileus after recent surgery 3. Urinary retention resolved 4. Hypokalemia improved 5. Dysphagia PLAN: -s/p EGD with balloon dilitation distal esophagis -Continue clear FLD -Continue TPN for nutrition support -Continue antibiotics -Encourage patient to use incentive spirometer -Encourage patient to increase activity level. -Continue pain management. Discussed with patient that she needs to use the IV pain medication for breakthrough pain only and to use the oral pain medication -Patient will require ECF at discharge -GI prophylaxis Protonix DVT prophylaxis subcu heparin Objective - Vital Signs Vital signs: Vital Signs Temp 97.8 F 12/31/23 14:00 Pulse 80 12/31/23 15:51 Resp 17 12/31/23 14:00 BP 122/76 12/31/23 14:00 Pulse Ox 99 12/31/23 14:00 FiO2 30 12/09/23 10:00 Intake & Output 12/30/23 12/31/23 12/31/23 18:59 06:59 18:59 Intake Total 100 1033 Output Total 100 Balance 100 933 Weight 31 kg Intake: IV 100 Intake, IV Titration 1033 Amount Mvi, Adult No.4 with Vit 1033 K 10 ml Trace (Conc-1Ml/ Dose) 1 ml Potassium Chloride 10 meq Sodium Chloride 4Meq/ml Vial 68 meq In Amino Acid 5%-D20w +Lytes*E* 1,000 ml @ 52 mls/hr IV .[id number] [facility] Rx #:[id number] Output: Stool 100 Other: Voiding Method Toilet Toilet Diaper Diaper # Voids 6 2 ABP, PAP, CO, CI - Last Documented Arterial Blood Pressure 119/92 - Labs CBC & Chem 7: 12/29/23 07:55 12/31/23 05:59 Labs: Abnormal Lab Results - Last 24 Hours (Table) 12/30/23 12/30/23 12/31/23 Range/Units 16:43 20:40 01:53 Sodium (137-145) mmol/L Chloride (98-107) mmol/L BUN (7-17) mg/dL Glucose (74-99) mg/dL POC Glucose (mg/dL) 118 H 121 H 125 H (70-110) mg/dL Calcium (8.4-10.2) mg/dL 12/31/23 12/31/23 12/31/23 Range/Units 05:59 06:10 11:35 Sodium 134 L (137-145) mmol/L Chloride 109 H (98-107) mmol/L BUN 20 H (7-17) mg/dL Glucose 102 H (74-99) mg/dL POC Glucose (mg/dL) 111 H 118 H (70-110) mg/dL Calcium 7.9 L (8.4-10.2) mg/dL
[2023-12-31 16:52] LABS: Glucose,Whole Blood 119 mg/dL (70-110)
[2024-01-01 00:13] LABS: Glucose,Whole Blood 127 mg/dL (70-110)
[2024-01-01] MEDS: MVI, ADULT NO.4 WITH VIT K 10 ML, TRACE (CONC-1ML/DOSE) 1 ML, POTASSIUM CHLORIDE 10 MEQ... IV SCH (01:38)
[2024-01-01 05:52] LABS: Glucose,Whole Blood 127 mg/dL (70-110)
[2024-01-01 08:12] LABS: ALT 20 U/L (4-34); AST 30 U/L (14-36); African American GFR (CKD) >90 (>60 ml/min/1.73 sqM); Albumin/Globulin Ratio 0.9; Alkaline Phosphatase 66 U/L (38-126); Anion Gap 0 mmol/L; Blood Urea Nitrogen 20 mg/dL (7-17); Calcium 7.9 mg/dL (8.4-10.2); Carbon Dioxide 27 mmol/L (22-30); Chloride 107 mmol/L (98-107); Globulin 2.3 g/dL; Glucose 102 mg/dL (74-99); Magnesium 1.9 mg/dL (1.6-2.3); Non-African American GFR(CKD) >90 (>60 ml/min/1.73 sqM); Phosphorus 3.4 mg/dL (2.5-4.5); Potassium 4.1 mmol/L (3.5-5.1); Sodium 134 mmol/L (137-145); Total Bilirubin 0.3 mg/dL (0.2-1.3); Total Protein 4.3 g/dL (6.3-8.2)
[2024-01-01] MEDS: CEFEPIME 2 GM in SODIUM CHLORIDE 0.9% 100 ML IVPB SCH (09:52)
[2024-01-01 11:26] LABS: Glucose,Whole Blood 133 mg/dL (70-110)
--- NOTE | 2024-01-01 11:39 | P.PN ---
Subjective Progress Note Date: 01/01/24 Principal diagnosis: Abdominal pain. The patient is seen today December 25, 2019 for follow-up on the regular medical floor. She is sitting up in bed. Awake and alert in no acute distress. Denies any worsening shortness of breath, cough or congestion. She is maintaining good O2 saturations in the 90s on room air. Chest x-ray reveals small bilateral effusions. Evidence of COPD. Nasogastric tube in good position. Right-sided PICC line in place. Follow-up CT scan of the abdomen pelvis revealed decrease in dilated loops of bowel throughout the abdomen compared to previous. Oral contrast extends to the rectum. Dilated bowel to 2.5 cm remains present. No transition point definitively visualized. Correlate for ileus and/or partial bowel obstruction. The gastric tube remains to wall suction. She remains on TPN for nutritional support. Remains on cefepime and Flagyl. Continued on bronchodilators. Sodium 133. Potassium 4.0. Bicarb 30. BUN 21. Creatinine 0.43. Glucose 95. The patient is seen today December 26, 2023 in follow-up on the regular medical floor. She is sitting up in bed. Awake and alert in no acute distress. She is maintaining good O2 saturations in the 90s on room air. Nasogastric tube remains in place. She is receiving TPN at 52 MLS per hour for nutritional support. She is continued on antibiotics in the form of cefepime and Flagyl. He is continued on bronchodilators. NicoDerm patch in place. Count 8.2. Hemoglobin 10.4. Platelets 294. Sodium 133. Potassium 3.7. Bicarb 29. BUN 18. Creatinine 0.42. Glucose 116. The patient is seen today December 27, 2023 in follow-up on the regular medical floor. She is currently resting comfortably in bed. Awake and alert in no acute distress. Maintaining O2 saturations in the 90s on room air. She is continued to have intermittent abdominal discomfort. Abdominal x-ray reveals that the air noted on the previous exam appeared to be superficial to the patient and likely within the ostomy bag. Contrast stenosis is seen to extend into the colon. Small bilateral pleural effusions. Nasogastric tube has been removed. Sodium 132. Potassium 5.0. Bicarb 27. BUN 27. Creatinine 0.55. Glucose 125. He remains on antibiotics in the form of cefepime and Flagyl. Continued on bronchodilators. NicoDerm patch in place. Heparin for DVT prophylaxis. The patient is seen today December 28, 2023 in follow-up on the regular medical floor. She is awake and alert in no acute distress. She has been up ambulating in the hallway and in her room with physical therapy assistance. Currently sitting up in a chair. Denies any worsening shortness of breath, cough or conge stion. She is maintaining O2 saturations in the 90s on room air. Her nasogastric tube is out. She is being nursed with TPN at 52 mL/h. Remains on antibiotics in the form of cefepime and Flagyl. Continued on bronchodilators. Heparin for DVT prophylaxis. The patient is seen today December 29, 2023 in follow-up on the regular medical floor. She is sitting up in a chair. Awake and alert in no acute distress. She denies any worsening shortness of breath, cough or congestion. She is maintaining O2 saturations in the 90s on room air. She has been advanced to clear liquid diet. She remains with supplemental nourishment and TPN at 52 MLS per hour. She is continued on cefepime and Flagyl. DuoNeb ventilations, Pulmicort and perform scintillations, Singulair. Heparin for DVT prophylaxis. NicoDerm patch in place. Progress note dated December 30, 2023. 78-year-old female who has not been in the hospital for 22 days. She is seen today room 456. She appears to be doing much better. She continues on cefepime and Flagyl. She had an EGD done today. She is on room air. She is not receiving any IV fluids. She is getting TPN at 52 cc an hour. The NG tube was removed a few days ago. Laboratory data includes a sodium 134, potassium 4.2, chlorides 109, CO2 25, BUN 22, creatinine 0.53. Glucose is 137. Magnesium 2, phosphorus 3.3, and calcium 7.9. Previous culture data includes anaerobic gram- negative bacilli 2 different species, from December 08, and a wound culture that was positive for both Escherichia coli, and alphahemolytic Streptococcus. The EGD today, showed mild stricture of the distal esophagus, and mild gastritis. The patient did undergo biopsy, and dilatation. Progress note dated December 31, 2023. 78-year-old female has been in the hospital now for 23 days. The patient is currently on room air. She is not receiving any IV fluids, other than her TPN at 52 cc an hour. She continues on cefepime and Flagyl. Clinically, she looks well, and she states that she may be discharged, on Tuesday. Current labs include a sodium 134, potassium 4.4, chlorides 109, CO2 26, BUN 20, creatinine 0.53. Calcium is 7.9. Phosphorus 3.2, and magnesium 1.9. Progress note dated January 01, 2024. The patient is seen today in room 456. 78-year-old female who is now been in the hospital for 24 days. She continues on room air. She is getting TPN at 52 cc an hour. She continues on Flagyl, and cefepime. She is sitting in a chair next to her hospital bed. She is not having any respiratory issues at this time. He is hoping to be discharged in the next day or 2. Sodium 134, potassium 4.1, chlorides 107, CO2 27, BUN 20, creatinine 0.46. Glucose is 133. Albumin is 2.0. Objective - Vital Signs Vital signs: Vital Signs Temp 98.3 F 01/01/24 07:43 Pulse 80 01/01/24 09:05 Resp 18 01/01/24 07:45 BP 167/89 01/01/24 07:43 Pulse Ox 94 L 01/01/24 07:43 FiO2 30 12/09/23 10:00 Intake & Output 12/31/23 01/01/24 01/01/24 18:59 06:59 18:59 Intake Total 1033 Balance 1033 Weight 26.5 kg Intake: Intake, IV Titration 1033 Amount Mvi, Adult No.4 with Vit 1033 K 10 ml Trace (Conc-1Ml/ Dose) 1 ml Potassium Chloride 10 meq Sodium Chloride 4Meq/ml Vial 68 meq In Amino Acid 5%-D20w +Lytes*E* 1,000 ml @ 52 mls/hr IV .[id number] [facility] Rx #:[id number] Other: Voiding Method Toilet Toilet Diaper Diaper # Voids 4 4 ABP, PAP, CO, CI - Last Documented Arterial Blood Pressure 119/92 - Exam No acute distress, oriented 3. Not on any supplemental oxygen. HEENT examination is grossly unremarkable. Mucous membranes are moist. No oral lesions. Neck supple. Full range of motion. No adenopathy thyromegaly or neck vein d istention. Cardiovascular examination reveals regular rhythm rate. S1-S2 normal. No S3 or S4. No discernible murmur noted. Heart rate 80 bpm. Lungs reveal clear breath sounds. Breath sounds are equal bilaterally. No adventitious lung sounds including wheezes rhonchi or crackles. Room air sa turation is 94 to 98%. Abdomen soft bowel sounds are heard. No masses or tenderness. Extremities are intact. No cyanosis clubbing or edema. Skin is without rash or lesion. Neurologic examination is brief but nonfocal. - Labs CBC & Chem 7: 12/29/23 07:55 01/01/24 06:52 Labs: Abnormal Lab Results - Last 24 Hours (Table) 12/31/23 12/31/23 01/01/24 Range/Units 11:35 16:50 00:11 Sodium (137-145) mmol/L BUN (7-17) mg/dL Creatinine (0.52-1.04) mg/dL Glucose (74-99) mg/dL POC Glucose (mg/dL) 118 H 119 H 127 H (70-110) mg/dL Calcium (8.4-10.2) mg/dL Total Protein (6.3-8.2) g/dL Albumin (3.5-5.0) g/dL 01/01/24 01/01/24 01/01/24 Range/Units 05:50 06:52 11:24 Sodium 134 L (137-145) mmol/L BUN 20 H (7-17) mg/dL Creatinine 0.46 L (0.52-1.04) mg/dL Glucose 102 H (74-99) mg/dL POC Glucose (mg/dL) 127 H 133 H (70-110) mg/dL Calcium 7.9 L (8.4-10.2) mg/dL Total Protein 4.3 L (6.3-8.2) g/dL Albumin 2.0 L (3.5-5.0) g/dL Assessment and Plan Assessment: Severe acute abdominal pain secondary to perforated sigmoid diverticulitis. Status post exploratory laparotomy, sigmoid colectomy, end colostomy on December 08, 2023. Most recent CT scan of the abdomen reveals ileus versus partial small bowel obstruction. Plan is for conservative management. Nasogastric tube removed. Continued on TPN via PICC line. Acute hypoxemic respiratory failure secondary to above requiring prolonged ventilation. Severe protein calorie malnutrition with a BMI of less than 20 kg/m. History of gastric ulcers and esophagitis. History of rheumatoid arthritis. History of chronic obstructive pulmonary disease. History of chronic tobacco dependence. History of hypertension. History of hyperlipidemia. History of gastroesophageal reflux disease. Plan: Plan dated December 30, 2023. The patient is seen today in room 456. The patient is currently on cefepime and Flagyl. She is on room air. No NG tube. The patient is getting TPN at 52 cc an hour. The patient had an EGD today which showed some mild gastritis, and also, a slight stricture of the distal esophagus. Labs, x-rays, and medications are reviewed. Clinically, the patient appears to be doing relatively well. She has not been in the hospital for 22 days. Labs, x-rays, medications are reviewed. We will continue to follow make recommendations along the way. Plan dated December 31, 2023. The patient is seen today in room 456. She sitting in the chair next to her hospital bed. She is not requiring any supplemental oxygen. Saturations were in the mid to high 90s. She is not receiving any IV fluids, other than her TPN at 52 cc an hour. The patient continues on cefepime and Flagyl. She is hoping to be discharged from the hospital on Tuesday. Labs, x-rays, and medications are reviewed. Prognosis is guarded. Plan dated January 01, 2024. The patient is again seen in room 456. Labs, x-rays, and medications are reviewed. The patient is on room air. The NG tube has been removed. The patient is getting TPN at 52 cc an hour. She denies any respiratory or chest complaints. She denies any abdominal pain or abdominal discomfort. We will continue to follow, make recommendations along the way. The patient has now been in the hospital for 24 days. She is hoping to be discharged in the next day or 2. Prognosis is guarded. She continues on cefepime and Flagyl. Time with Patient: Less than 30
--- NOTE | 2024-01-01 12:21 | P.PN ---
Subjective Progress Note Date: 01/01/24 This is a 78-year-old female who has been followed by Dr. Elizabeth admitted for perforated sigmoid diverticulitis went for surgical repair/sigmoid colectomy with end colostomy. Patient continues on the medical floor remains n.p.o. with an NG tube in place. Repeat abdominal CT shows concern for complete bowel obstruction there is stool noted in the colostomy. Patient has positive bowel sounds throughout. She continues on antibiotics in the form of IV cefepime and IV Flagyl remains on parenteral nutrition. She received a dose of IV Lasix one- time yesterday. Potassium today 3.3. Sodium 133. 12/25/2023 Patient evaluated today resting in bed. She is reporting some increased abdominal pain and overall not feeling well. She is currently undergoing a repeat abdominal CT scan and has received the contrast. NG tube remains in place currently clamped. She does have positive bowel sounds and has some small amount of brown stool in the ostomy. Patient received a dose of IV Lasix 2 days ago for the small bilateral pleural effusions which are essentially stable at this time. Her sodium level is 133. Remains on TPN. 12/26/2023 Patient evaluated today resting in bed. She continues to report abdominal discomfort and today states that she feels nauseous. Zofran has been ordered. There continues to be a small amount of stool in the ostomy bag. A repeat abdominal pelvis CT was completed showing decrease in dilated loops of bowel throughout the abdomen comparing to immediate priors. Oral contrast extends to the rectum correlate for ileus and/or partial bowel obstruction. NG tube rem ains in place with output of 100 MLS overnight of gastric drainage. Patient remains on IV Flagyl and IV cefepime. Remains on TPN. 12/27/2023 Patient is evaluated today sitting up at the bedside. She is continue to have stool through the ostomy. NG tube has removed today and patient is started on clear liquid diet. He remains hyponatremic this is likely from the TPN. Remains on IV cefepime and IV Flagyl. She reports that her nausea has resolved. 12/28/2023 Patient on the medical floor, has been up to the bathroom and able to take a shower today. NG tube remains out and patient continues on clear liquid diet. No reports of nausea overnight. Abdominal pain is managed and continues on morphine and percocet. Remains on TPN as patient had difficulty with advancing diet to full liquid. 12/29/2023 Patient evaluated today sitting up in the chair. Has increased output from the ostomy and increased urine output. No shortness of breath no chest pain no nausea vomiting or diarrhea. NG tube has been out patient is been maintained on a clear liquid diet states that she is having difficulty with a full liquid diet feels like it is getting stuck and she is unable to swallow it down. 12/30/2023 Patient is evaluated today sitting up in the chair. She is underwent modified barium swallow yesterday revealing esophageal stricture and subsequently underwent an EGD with biopsy and dilation with general surgery. She has been upgraded to a full liquid diet and states that she has tolerated it well this morning. General surgery recommending to continue on the TPN until patient is tolerating increased oral intake. Her sodium today is improved to 134 renal function remains stable. She is making adequate stool from the ostomy. 12/31/2023 Patient evaluated today sitting up in the chair. Tolerating full liquid diet. Continues on TPN pending increasing oral intake. Sodium remains stable at 134. Continues to have adequate stool from the ostomy. Hemodynamically she is stable. 01/01/2024 Patient eval today sitting up in the chair. She is not reporting any abdominal discomfort and is tolerating a full liquid diet at this time. She is hoping this can be upgraded to a soft diet. She continues on TPN for the meantime until she has increased oral intake. She is making stool from the ostomy. She will be discharged to subacute rehab once stable from a surgical aspect. Her l abs today show a sodium level of 134, BUN 20, creatinine 0.46, potassium 4.1. Magnesium 1.9. Her blood glucoses in the 120s. Remains afebrile and on room air. Review of Systems Constitutional: Denied any fatigue denied any fever. Cardio vascular: denied any chest pain, palpitations Gastrointestinal: denied any nausea, vomiting, diarrhea Pulmonary: Denied any shortness of breath cough Neurologic denied any new focal deficits All inpatient medications were reviewed and appropriate changes in these medications as dictated in the interval history and assessment and plan. PHYSICAL EXAMINATION: GENERAL: The patient is alert and oriented x3, not in any acute distress. Well developed, well nourished. HEENT: Pupils are round and equally reacting to light. EOMI. No scleral icterus. No conjunctival pallor. Normocephalic, atraumatic. No pharyngeal erythema. No thyromegaly. CARDIOVASCULAR: S1 and S2 present. No murmurs, rubs, or gallops. PULMONARY: Chest is clear to auscultation, no wheezing or crackles. ABDOMEN: Soft, nontender, nondistended, normoactive bowel sounds. No palpable or ganomegaly. NG tube in place. Midline dressing intact. ostomy present left lower quad with brown liquid stool in ostomy. MUSCULOSKELETAL: No joint swelling or deformity. EXTREMITIES: No cyanosis, clubbing, or pedal edema. NEUROLOGICAL: Gross neurological examination did not reveal any focal deficits. SKIN: No rashes. Assessment and plan: -Acute sigmoid diverticulitis with perforation status post sigmoid resection and colostomy formation on December 08, cultures growing E. coli and alphahemolytic Streptococcus -Secondary peritonitis from hollow viscus perforation, IV cefepime and IV Flagyl . ID following -Bowel obstruction vs ileus improved and NG tube has been removed patient is started on diet and upgraded to full liquid. -Dysphagia after NG tube removal, patient had a esophageal stricture and is status post esophageal dilation with biopsies and is now tolerating a full liquid diet patient will continue on TPN until she is tolerating increased oral intake. -Urinary retention resolved at this time. -Anterior chest wall pain. Non-ST elevation IL. Type II. -Hypertensive heart disease. Severe LVH on echo. -Bilateral pleural effusions received a dose of IV Lasix, monitoring off of diuretic -Severe hypokalemia: resolved, continue to monitor and supplement per protocol -COPD and a current smoker continue current home regimen -Hyperlipidemia -Severe protein calorie malnutrition. BMI 18.3. -Chronic muscle spasm -Peptic ulcer disease -Essential hypertension. GI prophylaxis DVT prophylaxis Full Code Patient will require subacute rehab on discharge. Continue with incentive spirometer 10 x an hour while awake, continue on TPN through PICC line. On full liquid diet Continue antibiotics. Recommend to repeat labs in the morning and encourage increasing activity level. Pulmonary and infectious disease are following. Patient will be discharged to subacute rehab when she is cleared surgically. She needs to have her diet increase and tolerating and then TPN will be weaned. The impression and plan of care has been dictated by Alee Landis, Nurse Practitioner as directed. Dr. Ferdinand MD I have performed a history and physical examination and medical decision making of this patient, discussed the same with the dictator, and agree with the dictators assessment and plan as written, documented as a scribe. Based on total visit time, I have performed more than 50% of this visit. Objective - Vital Signs Vital signs: Vital Signs Temp 98.3 F 01/01/24 07:43 Pulse 82 01/01/24 12:05 Resp 18 01/01/24 07:45 BP 167/89 01/01/24 07:43 Pulse Ox 94 L 01/01/24 07:43 FiO2 30 12/09/23 10:00 Intake & Output 12/31/23 01/01/24 01/01/24 18:59 06:59 18:59 Intake Total 1033 Balance 1033 Weight 26.5 kg Intake: Intake, IV Titration 1033 Amount Mvi, Adult No.4 with Vit 1033 K 10 ml Trace (Conc-1Ml/ Dose) 1 ml Potassium Chloride 10 meq Sodium Chloride 4Meq/ml Vial 68 meq In Amino Acid 5%-D20w +Lytes*E* 1,000 ml @ 52 mls/hr IV .[id number] [facility] Rx #:[id number] Other: Voiding Method Toilet Toilet Diaper Diaper # Voids 4 4 ABP, PAP, CO, CI - Last Documented Arterial Blood Pressure 119/92 - Labs CBC & Chem 7: 12/29/23 07:55 01/01/24 06:52 Labs: Abnormal Lab Results - Last 24 Hours (Table) 12/31/23 01/01/24 01/01/24 Range/Units 16:50 00:11 05:50 Sodium (137-145) mmol/L BUN (7-17) mg/dL Creatinine (0.52-1.04) mg/dL Glucose (74-99) mg/dL POC Glucose (mg/dL) 119 H 127 H 127 H (70-110) mg/dL Calcium (8.4-10.2) mg/dL Total Protein (6.3-8.2) g/dL Albumin (3.5-5.0) g/dL 01/01/24 01/01/24 Range/Units 06:52 11:24 Sodium 134 L (137-145) mmol/L BUN 20 H (7-17) mg/dL Creatinine 0.46 L (0.52-1.04) mg/dL Glucose 102 H (74-99) mg/dL POC Glucose (mg/dL) 133 H (70-110) mg/dL Calcium 7.9 L (8.4-10.2) mg/dL Total Protein 4.3 L (6.3-8.2) g/dL Albumin 2.0 L (3.5-5.0) g/dL Assessment and Plan Time with Patient: Less than 30
--- NOTE | 2024-01-01 12:21 | P.PN ---
Subjective Progress Note Date: 01/01/24 Patient sitting in chair. Tolerating chocolate pudding. Reports moderate improvement of dysphagia. Transition to outpatient facility when medically stable. Denies abdominal pain. Recommend recheck of weight as BMI is 10.7. Objective - Vital Signs Vital signs: Vital Signs Temp 98.3 F 01/01/24 07:43 Pulse 82 01/01/24 12:05 Resp 18 01/01/24 07:45 BP 167/89 01/01/24 07:43 Pulse Ox 94 L 01/01/24 07:43 FiO2 30 12/09/23 10:00 Intake & Output 12/31/23 01/01/24 01/01/24 18:59 06:59 18:59 Intake Total 1033 Balance 1033 Weight 26.5 kg Intake: Intake, IV Titration 1033 Amount Mvi, Adult No.4 with Vit 1033 K 10 ml Trace (Conc-1Ml/ Dose) 1 ml Potassium Chloride 10 meq Sodium Chloride 4Meq/ml Vial 68 meq In Amino Acid 5%-D20w +Lytes*E* 1,000 ml @ 52 mls/hr IV .[id number] [facility] Rx #:[id number] Other: Voiding Method Toilet Toilet Diaper Diaper # Voids 4 4 ABP, PAP, CO, CI - Last Documented Arterial Blood Pressure 119/92 - Labs CBC & Chem 7: 12/29/23 07:55 01/01/24 06:52 Labs: Abnormal Lab Results - Last 24 Hours (Table) 12/31/23 01/01/24 01/01/24 Range/Units 16:50 00:11 05:50 Sodium (137-145) mmol/L BUN (7-17) mg/dL Creatinine (0.52-1.04) mg/dL Glucose (74-99) mg/dL POC Glucose (mg/dL) 119 H 127 H 127 H (70-110) mg/dL Calcium (8.4-10.2) mg/dL Total Protein (6.3-8.2) g/dL Albumin (3.5-5.0) g/dL 01/01/24 01/01/24 Range/Units 06:52 11:24 Sodium 134 L (137-145) mmol/L BUN 20 H (7-17) mg/dL Creatinine 0.46 L (0.52-1.04) mg/dL Glucose 102 H (74-99) mg/dL POC Glucose (mg/dL) 133 H (70-110) mg/dL Calcium 7.9 L (8.4-10.2) mg/dL Total Protein 4.3 L (6.3-8.2) g/dL Albumin 2.0 L (3.5-5.0) g/dL
--- NOTE | 2024-01-01 14:29 | P.PN ---
Subjective Progress Note Date: 01/01/24 Principal diagnosis: Reason for follow-up is perforated diverticulitis and abscess Patient is a 78-year-old female with a past medical history significant for COPD hypertension rheumatoid arthritis presenting to the ER for evaluation of epigastric abdominal pain, patient did have a CT abdominal pelvis concerning for free subsequently taken to the OR status post laparotomy with evidence of perforated sigmoid diverticulitis status post sigmoid colectomy and end colostomy. Patient is status post EGD with biopsy and dilatation with evidence of mild stricture distal esophagus and mild gastritis completed on 12/30/2023 On today's visit that is 01/01/2024, Patient is afebrile ,patient is currently on room air and denies having any shortness of breath, the patient denies any chest pain occasional cough, the patient denies any nausea vomiting did not have any abdominal pain and tolerating her diet. Creatinine 0.46, no CBC was done today Objective - Vital Signs Vital signs: Vital Signs Temp 97.6 F 01/01/24 14:00 Pulse 76 01/01/24 14:00 Resp 17 01/01/24 14:00 BP 128/70 01/01/24 14:00 Pulse Ox 97 01/01/24 14:00 FiO2 30 12/09/23 10:00 Intake & Output 12/31/23 01/01/24 01/01/24 18:59 06:59 18:59 Intake Total 1033 Balance 1033 Weight 26.5 kg 43.4 kg Intake: Intake, IV Titration 1033 Amount Mvi, Adult No.4 with Vit 1033 K 10 ml Trace (Conc-1Ml/ Dose) 1 ml Potassium Chloride 10 meq Sodium Chloride 4Meq/ml Vial 68 meq In Amino Acid 5%-D20w +Lytes*E* 1,000 ml @ 52 mls/hr IV .[id number] [facility] Rx #:[id number] Other: Voiding Method Toilet Toilet Diaper Diaper # Voids 4 4 ABP, PAP, CO, CI - Last Documented Arterial Blood Pressure 119/92 - Exam GENERAL DESCRIPTION: An elderly female lying in bed in no distress RESPIRATORY SYSTEM: Unlabored breathing , decreased breath sounds at bases HEART: S1 S2 regular rate and rhythm , ABDOMEN: Soft , mild tenderness EXTREMITIES: No edema feet - Labs CBC & Chem 7: 12/29/23 07:55 01/01/24 06:52 Labs: Abnormal Lab Results - Last 24 Hours (Table) 12/31/23 01/01/24 01/01/24 Range/Units 16:50 00:11 05:50 Sodium (137-145) mmol/L BUN (7-17) mg/dL Creatinine (0.52-1.04) mg/dL Glucose (74-99) mg/dL POC Glucose (mg/dL) 119 H 127 H 127 H (70-110) mg/dL Calcium (8.4-10.2) mg/dL Total Protein (6.3-8.2) g/dL Albumin (3.5-5.0) g/dL 01/01/24 01/01/24 Range/Units 06:52 11:24 Sodium 134 L (137-145) mmol/L BUN 20 H (7-17) mg/dL Creatinine 0.46 L (0.52-1.04) mg/dL Glucose 102 H (74-99) mg/dL POC Glucose (mg/dL) 133 H (70-110) mg/dL Calcium 7.9 L (8.4-10.2) mg/dL Total Protein 4.3 L (6.3-8.2) g/dL Albumin 2.0 L (3.5-5.0) g/dL Assessment and Plan (1) Intra-abdominal abscess Current Visit: Yes Status: Acute Code(s): K65.1 - PERITONEAL ABSCESS SNOMED Code(s): 21243468 (2) Allergy to multiple antibiotics Current Visit: Yes Status: Acute Code(s): Z88.1 - ALLERGY STATUS TO OTHER ANTIBIOTIC AGENTS SNOMED Code(s): 868043816 (3) Perforated viscus Current Visit: Yes Status: Acute Code(s): R19.8 - OTH SYMPTOMS AND SIGNS INVOLVING THE DGSTV SYS AND ABDOMEN SNOMED Code(s): 426653945 Plan: 1patient presented to hospital with abdominal pain has been diagnosed with a perforated viscus in this patient was status post laparotomy with evidence of perforated sigmoid diverticulitis status post laparotomy sigmoid colectomy and end colostomy for likely organism need to cover will be enteric gram-negative both aerobes and anaerobes 2-patient did have repeat CT has with evidence of partial versus complete bowel obstruction NG has been placed which the patient has been tolerating 3-the patient remains to be afebrile, white count has been normal, patient did have a follow-up CT on 12/25/2023 and it shows improvement in the bowel dilatation pattern no abscess and did have EGD with evidence of gastritis and did have some dilatation done 4- patient is slowly clinically improving, patient continue with the cefepime and will switch Flagyl to p.o. Dictation was produced using [employer] dictation software. please excuse any grammatical, word or spelling errors. Time with Patient: Less than 30
[2024-01-01] MEDS: metroNIDAZOLE 500 MG TAB PO SCH (16:26)
[2024-01-01 16:39] LABS: Glucose,Whole Blood 116 mg/dL (70-110)
[2024-01-01 20:30] LABS: Glucose,Whole Blood 107 mg/dL (70-110)
[2024-01-02 06:09] LABS: Glucose,Whole Blood 122 mg/dL (70-110)
[2024-01-02 06:47] LABS: ALT 20 U/L (4-34); AST 28 U/L (14-36); African American GFR (CKD) >90 (>60 ml/min/1.73 sqM); Albumin/Globulin Ratio 0.9; Alkaline Phosphatase 65 U/L (38-126); Anion Gap 0 mmol/L; Blood Urea Nitrogen 19 mg/dL (7-17); Calcium 7.9 mg/dL (8.4-10.2); Carbon Dioxide 27 mmol/L (22-30); Chloride 106 mmol/L (98-107); Globulin 2.3 g/dL; Glucose 103 mg/dL (74-99); Magnesium 1.9 mg/dL (1.6-2.3); Non-African American GFR(CKD) >90 (>60 ml/min/1.73 sqM); Phosphorus 3.4 mg/dL (2.5-4.5); Potassium 4.2 mmol/L (3.5-5.1); Sodium 133 mmol/L (137-145); Total Bilirubin 0.3 mg/dL (0.2-1.3); Total Protein 4.3 g/dL (6.3-8.2)
[2024-01-02 11:33] LABS: Glucose,Whole Blood 139 mg/dL (70-110)
--- NOTE | 2024-01-02 11:59 | P.PN ---
Subjective Progress Note Date: 01/02/24 Principal diagnosis: Reason for follow-up is perforated diverticulitis and abscess Patient is a 78-year-old female with a past medical history significant for COPD hypertension rheumatoid arthritis presenting to the ER for evaluation of epigastric abdominal pain, patient did have a CT abdominal pelvis concerning for free subsequently taken to the OR status post laparotomy with evidence of perforated sigmoid diverticulitis status post sigmoid colectomy and end colostomy. Patient is status post EGD with biopsy and dilatation with evidence of mild stricture distal esophagus and mild gastritis completed on 12/30/2023 On today's visit that is 01/02/2024,the patient denies any fever or any chills, patient is breathing comfortably on room air, the patient denies chest pain shortness of breath and no significant cough, patient denies abdominal pain, no nausea vomiting tolerating current diet did have output in colostomy. Patient did have a creatinine of 0.51 no CBC was done today Objective - Vital Signs Vital signs: Vital Signs Temp 97.6 F 01/02/24 07:35 Pulse 81 01/02/24 07:35 Resp 17 01/02/24 07:35 BP 178/88 01/02/24 07:35 Pulse Ox 98 01/02/24 07:35 FiO2 30 12/09/23 10:00 Intake & Output 01/01/24 01/02/24 01/02/24 18:59 06:59 18:59 Intake Total 1045 Balance 1045 Weight 43.4 kg 43.1 kg Intake: Intake, IV Titration 1045 Amount Mvi, Adult No.4 with Vit 1045 K 10 ml Trace (Conc-1Ml/ Dose) 1 ml Potassium Chloride 10 meq Sodium Chloride 4Meq/ml Vial 60 meq Sodium Acetate 28 meq In Amino Acid 5%-D20w+ Lytes*E* 1,000 ml @ 52 mls/hr IV .[id number] [facility] Rx# :[id number] Other: Voiding Method Toilet Toilet Diaper # Voids 5 1 ABP, PAP, CO, CI - Last Documented Arterial Blood Pressure 119/92 - Exam GENERAL DESCRIPTION: An elderly female lying in bed in no distress RESPIRATORY SYSTEM: Unlabored breathing , decreased breath sounds at bases HEART: S1 S2 regular rate and rhythm , ABDOMEN: Soft , mild tenderness EXTREMITIES: No edema feet - Labs CBC & Chem 7: 12/29/23 07:55 01/02/24 06:09 Labs: Abnormal Lab Results - Last 24 Hours (Table) 01/01/24 01/02/24 01/02/24 Range/Units 16:37 06:07 06:09 Sodium 133 L (137-145) mmol/L BUN 19 H (7-17) mg/dL Creatinine 0.51 L (0.52-1.04) mg/dL Glucose 103 H (74-99) mg/dL POC Glucose (mg/dL) 116 H 122 H (70-110) mg/dL Calcium 7.9 L (8.4-10.2) mg/dL Total Protein 4.3 L (6.3-8.2) g/dL Albumin 2.0 L (3.5-5.0) g/dL 01/02/24 Range/Units 11:31 Sodium (137-145) mmol/L BUN (7-17) mg/dL Creatinine (0.52-1.04) mg/dL Glucose (74-99) mg/dL POC Glucose (mg/dL) 139 H (70-110) mg/dL Calcium (8.4-10.2) mg/dL Total Protein (6.3-8.2) g/dL Albumin (3.5-5.0) g/dL Assessment and Plan (1) Intra-abdominal abscess Current Visit: Yes Status: Acute Code(s): K65.1 - PERITONEAL ABSCESS SNOMED Code(s): 99190541 (2) Allergy to multiple antibiotics Current Visit: Yes Status: Acute Code(s): Z88.1 - ALLERGY STATUS TO OTHER ANTIBIOTIC AGENTS SNOMED Code(s): 589794795 (3) Perforated viscus Current Visit: Yes Status: Acute Code(s): R19.8 - OTH SYMPTOMS AND SIGNS INVOLVING THE DGSTV SYS AND ABDOMEN SNOMED Code(s): 895079607 Plan: 1patient presented to hospital with abdominal pain has been diagnosed with a perforated viscus in this patient was status post laparotomy with evidence of perforated sigmoid diverticulitis status post laparotomy sigmoid colectomy and end colostomy for likely organism need to cover will be enteric gram-negative both aerobes and anaerobes 2-patient did have repeat CT has with evidence of partial versus complete bowel obstruction NG has been placed which the patient has been tolerating 3-the patient remains to be afebrile, white count has been normal, patient did have a follow-up CT on 12/25/2023 and it shows improvement in the bowel dilatation pattern no abscess and did have EGD with evidence of gastritis and did have some dilatation done 4- patient is slowly clinically improving, patient has received adequate antibiotic therapy for underlying complicated diverticulitis with abscess and antibiotics can be safely discontinued on discharge currently on cefepime and Flagyl Dictation was produced using [employer] dictation software. please excuse any gr ammatical, word or spelling errors. Time with Patient: Less than 30
--- NOTE | 2024-01-02 15:00 | P.PN ---
Subjective Progress Note Date: 01/02/24 The patient is seen today December 25, 2019 for follow-up on the regular medical floor. She is sitting up in bed. Awake and alert in no acute distress. Denies any worsening shortness of breath, cough or congestion. She is maintaining good O2 saturations in the 90s on room air. Chest x-ray reveals small bilateral effusions. Evidence of COPD. Nasogastric tube in good position. Right-sided PICC line in place. Follow-up CT scan of the abdomen pelvis revealed decrease in dilated loops of bowel throughout the abdomen compared to previous. Oral contrast extends to the rectum. Dilated bowel to 2.5 cm remains present. No transition point definitively visualized. Correlate for ileus and/or partial bowel obstruction. The gastric tube remains to wall suction. She remains on TPN for nutritional support. Remains on cefepime and Flagyl. Continued on bronchodilators. Sodium 133. Potassium 4.0. Bicarb 30. BUN 21. Creatinine 0.43. Glucose 95. The patient is seen today December 26, 2023 in follow-up on the regular medical floor. She is sitting up in bed. Awake and alert in no acute distress. She is maintaining good O2 saturations in the 90s on room air. Nasogastric tube remains in place. She is receiving TPN at 52 MLS per hour for nutritional support. She is continued on antibiotics in the form of cefepime and Flagyl. He is continued on bronchodilators. NicoDerm patch in place. Count 8.2. Hemoglobin 10.4. Platelets 294. Sodium 133. Potassium 3.7. Bicarb 29. BUN 18. Creatinine 0.42. Glucose 116. The patient is seen today December 27, 2023 in follow-up on the regular medical floor. She is currently resting comfortably in bed. Awake and alert in no acute distress. Maintaining O2 saturations in the 90s on room air. She is continued to have intermittent abdominal discomfort. Abdominal x-ray reveals that the air noted on the previous exam appeared to be superficial to the patient and likely within the ostomy bag. Contrast stenosis is seen to extend into the colon. Small bilateral pleural effusions. Nasogastric tube has been removed. Sodium 132. Potassium 5.0. Bicarb 27. BUN 27. Creatinine 0.55. Glucose 125. He remains on antibiotics in the form of cefepime and Flagyl. Continued on bronchodilators. NicoDerm patch in place. Heparin for DVT prophylaxis. The patient is seen today December 28, 2023 in follow-up on the regular medical floor. She is awake and alert in no acute distress. She has been up ambulating in the hallway and in her room with physical therapy assistance. Currently sitting up in a chair. Denies any worsening shortness of breath, cough or congestion. She is maintaining O2 saturations in the 90s on room air. Her nasogastric tube is out. She is being nursed with TPN at 52 mL/h. Remains on antibiotics in the form of cefepime and Flagyl. Continued on bronchodilators. Heparin for DVT prophylaxis. The patient is seen today December 29, 2023 in follow-up on the regular medical floor. She is sitting up in a chair. Awake and alert in no acute distress. She denies any worsening shortness of breath, cough or congestion. She is maintaining O2 saturations in the 90s on room air. She has been advanced to clear liquid diet. She remains with supplemental nourishment and TPN at 52 MLS per hour. She is continued on cefepime and Flagyl. DuoNeb ventilations, Pulmicort and perform scintillations, Singulair. Heparin for DVT prophylaxis. NicoDerm patch in place. Progress note dated December 30, 2023. 78-year-old female who has not been in the hospital for 22 days. She is seen today room 456. She appears to be doing much better. She continues on cefepime and Flagyl. She had an EGD done today. She is on room air. She is not receiving any IV fluids. She is getting TPN at 52 cc an hour. The NG tube was removed a few days ago. Laboratory data includes a sodium 134, potassium 4.2, c hlorides 109, CO2 25, BUN 22, creatinine 0.53. Glucose is 137. Magnesium 2, phosphorus 3.3, and calcium 7.9. Previous culture data includes anaerobic gram- negative bacilli 2 different species, from December 08, and a wound culture that was positive for both Escherichia coli, and alphahemolytic Streptococcus. The EGD today, showed mild stricture of the distal esophagus, and mild gastritis. The patient did undergo biopsy, and dilatation. Progress note dated December 31, 2023. 78-year-old female has been in the hospital now for 23 days. The patient is currently on room air. She is not receiving any IV fluids, other than her TPN at 52 cc an hour. She continues on cefepime and Flagyl. Clinically, she looks well, and she states that she may be discharged, on Tuesday. Current labs inclu de a sodium 134, potassium 4.4, chlorides 109, CO2 26, BUN 20, creatinine 0.53. Calcium is 7.9. Phosphorus 3.2, and magnesium 1.9. Progress note dated January 01, 2024. The patient is seen today in room 456. 78-year-old female who is now been in the hospital for 24 days. She continues on room air. She is getting TPN at 52 cc an hour. She continues on Flagyl, and cefepime. She is sitting in a chair next to her hospital bed. She is not having any respiratory issues at this time. He is hoping to be discharged in the next day or 2. Sodium 134, potassium 4.1, chlorides 107, CO2 27, BUN 20, creatinine 0.46. Glucose is 133. Albumin is 2.0. On today's evaluation of 01/02/2024, the patient is being seen for a follow-up. Calm and comfortable sitting up in a chair on room air oxygen. No signs of any significant respiratory distress. The patient is still recovering from abdominal surgery. The patient originally had a perforated sigmoid diverticulitis patient underwent sigmoid colectomy and end colostomy. She was also found to have a mild stricture in the distal esophagus upon his subsequent EGD and some mild gastritis and this was completed on 12/30/2023. Currently, she still on TPN for nutrition support. Her colostomy is functional. There is output in the colostomy bag.Her sodium level is at 133 with a potassium level of 4.2, BUN is at 19 with a creatinine of 0.5 and potassium level is at 4.2. Bicarb is at 27. LFTs are normal. She remains on DuoNeb updrafts, she is on Symbicort, she remains on IV cefepime and Flagyl. The intra-abdominal culture showed anaerobes and this was collected on 12/08/2023. No interval worsening in her condition. She is quite weak and cachectic and her body mass index is 17.4. Objective - Vital Signs Vital signs: Vital Signs Temp 97.6 F 01/02/24 07:35 Pulse 81 01/02/24 07:35 Resp 17 01/02/24 07:35 BP 178/88 01/02/24 07:35 Pulse Ox 98 01/02/24 07:35 FiO2 30 12/09/23 10:00 Intake & Output 01/01/24 01/02/24 01/02/24 18:59 06:59 18:59 Intake Total 1045 Balance 1045 Weight 43.4 kg 43.1 kg Intake: Intake, IV Titration 1045 Amount Mvi, Adult No.4 with Vit 1045 K 10 ml Trace (Conc-1Ml/ Dose) 1 ml Potassium Chloride 10 meq Sodium Chloride 4Meq/ml Vial 60 meq Sodium Acetate 28 meq In Amino Acid 5%-D20w+ Lytes*E* 1,000 ml @ 52 mls/hr IV .Q20H6M [facility] Rx# :[id number] Other: Voiding Method Toilet Toilet Diaper # Voids 5 1 ABP, PAP, CO, CI - Last Documented Arterial Blood Pressure 119/92 - Exam GENERAL EXAM: Awake, sitting up in bed, 78-year-old female, on room air, in no apparent distress. The patient is currently on room air oxygen HEAD: Normocephalic. EYES: Sluggish reaction of pupils, equal size. NOSE: Clear with pink turbinates. THROAT: Nasogastric tube secured in place. No erythema or exudates. NECK: No masses, no JVD. CHEST: No chest wall deformity. LUNGS: Equal air entry with faint crackles in the posterior bases. CVS: S1 and S2 normal with no audible murmur, regular rhythm. ABDOMEN: Abdominal dressing dry and intact. Left abdominal ostomy output is present. Bowel sounds are hypoactive SPINE: No scoliosis or deformity SKIN: No rashes CENTRAL NERVOUS SYSTEM: Sedated, tone is normal in all 4 extremities. EXTREMITIES: Right radial arterial line in place there is no peripheral edema. No clubbing, no cyanosis. Peripheral pulses are intact. - Labs CBC & Chem 7: 12/29/23 07:55 01/02/24 06:09 Labs: Abnormal Lab Results - Last 24 Hours (Table) 01/01/24 01/01/24 01/02/24 Range/Units 11:24 16:37 06:07 Sodium (137-145) mmol/L BUN (7-17) mg/dL Creatinine (0.52-1.04) mg/dL Glucose (74-99) mg/dL POC Glucose (mg/dL) 133 H 116 H 122 H (70-110) mg/dL Calcium (8.4-10.2) mg/dL Total Protein (6.3-8.2) g/dL Albumin (3.5-5.0) g/dL 01/02/24 Range/Units 06:09 Sodium 133 L (137-145) mmol/L BUN 19 H (7-17) mg/dL Creatinine 0.51 L (0.52-1.04) mg/dL Glucose 103 H (74-99) mg/dL POC Glucose (mg/dL) (70-110) mg/dL Calcium 7.9 L (8.4-10.2) mg/dL Total Protein 4.3 L (6.3-8.2) g/dL Albumin 2.0 L (3.5-5.0) g/dL Assessment and Plan Plan: Severe acute abdominal pain secondary to perforated sigmoid diverticulitis. Status post exploratory laparotomy, sigmoid colectomy, end colostomy on December 08, 2023. Most recent CT scan of the abdomen reveals ileus versus partial small bowel obstruction. The patient had intra-abdominal sepsis with anaerobes and E. coli and alphahemolytic strep and the patient remains on a combination of cefepime and Flagyl. Clinically stable. Hemodynamically stable. Remains on TPN for nutritional support. Remains NPO. Acute hypoxemic respiratory failure secondary to above requiring prolonged ventilation. The patient has recovered from her respiratory failure and the patient is currently on room air oxygen Severe protein calorie malnutrition with a BMI of less than 20 kg/m. History of gastric ulcers and esophagitis. Patient was also found to have a mild distal esophageal stricture. History of rheumatoid arthritis. History of chronic obstructive pulmonary disease. History of chronic tobacco dependence. History of hypertension. History of hyperlipidemia. History of gastroesophageal reflux disease. Plan: Encouraged use of incentive spirometer Increase mobility Continue IV cefepime and Flagyl Continue TPN for nutritional support Consider oral intake including full liquid diet and this will be coordinated with general surgery Continue DuoNeb updrafts Continue Symbicort We will continue to follow
--- NOTE | 2024-01-02 16:08 | P.PN ---
Subjective Progress Note Date: 01/02/24 CHIEF COMPLAINT: Perforated sigmoid diverticulitis HISTORY OF PRESENT ILLNESS: Patient is status post exploratory laparotomy, sigmoid colectomy and end colostomy on 12/08/23. Patient sitting at bedside gigi [email or web address] She reports her abdominal pain is controlled. Ostomy functioning. Tolerating full liquids without dysphagia. Afebrile. Patient did complain of headache this morning PHYSICAL EXAM: VITAL SIGNS: Reviewed. GENERAL: Well-developed in no acute distress. ABDOMEN: Nondistended. Tenderness at incision site. Incision clean dry intact. James in place. Stool present in ostomy bag NEUROLOGIC: Alert and oriented. Cranial nerves II through XII grossly intact. ASSESSMENT: 1. Perforated sigmoid diverticulitis status post exploratory laparotomy, sigmoid colectomy with end colostomy 2. Small bowel obstruction versus ileus after recent surgery 3. Urinary retention resolved 4. Hypokalemia improved 5. Dysphagia status post EGD with esophageal dilation for esophageal stricture PLAN: -Advance diet to low fiber -Wean off TPN -Continue antibiotics -Encourage patient to use incentive spirometer -Encourage patient to increase activity level. -Continue pain management -Patient will require ECF at discharge -GI prophylaxis Protonix DVT prophylaxis subcu heparin Physician Screen Printing Press Operator note has been reviewed by physician. Signing provider agrees with the documented findings, assessment, and plan of care. I have personally seen and examined the patient, reviewed the AVIATION TECHNICIAN AIRCRAFT /PAs history, exam and MDM and agree with the assessment and plan as written. Based on total visit time, I have performed more than 50% of the visit. As above: Patient was complaining of a headache earlier today. It is improved at this time. She actually looks quite good. She is tolerating full liquids. Advancing to regular at this time. Wean off TPN at this time. Plan to transfer to rehab on Tuesday. Objective - Vital Signs Vital signs: Vital Signs Temp 98.4 F 01/02/24 13:32 Pulse 77 01/02/24 13:32 Resp 17 01/02/24 13:32 BP 160/74 01/02/24 13:32 Pulse Ox 98 01/02/24 13:32 FiO2 30 12/09/23 10:00 Intake & Output 01/01/24 01/02/24 01/02/24 18:59 06:59 18:59 Intake Total 1045 Balance 1045 Weight 43.4 kg 43.1 kg Intake: Intake, IV Titration 1045 Amount Mvi, Adult No.4 with Vit 1045 K 10 ml Trace (Conc-1Ml/ Dose) 1 ml Potassium Chloride 10 meq Sodium Chloride 4Meq/ml Vial 60 meq Sodium Acetate 28 meq In Amino Acid 5%-D20w+ Lytes*E* 1,000 ml @ 52 mls/hr IV .Q20H6M [facility] Rx# :[id number] Other: Voiding Method Toilet Toilet Diaper # Voids 5 1 ABP, PAP, CO, CI - Last Documented Arterial Blood Pressure 119/92 - Labs CBC & Chem 7: 12/29/23 07:55 01/02/24 06:09 Labs: Abnormal Lab Results - Last 24 Hours (Table) 01/01/24 01/02/24 01/02/24 Range/Units 16:37 06:07 06:09 Sodium 133 L (137-145) mmol/L BUN 19 H (7-17) mg/dL Creatinine 0.51 L (0.52-1.04) mg/dL Glucose 103 H (74-99) mg/dL POC Glucose (mg/dL) 116 H 122 H (70-110) mg/dL Calcium 7.9 L (8.4-10.2) mg/dL Total Protein 4.3 L (6.3-8.2) g/dL Albumin 2.0 L (3.5-5.0) g/dL 01/02/24 Range/Units 11:31 Sodium (137-145) mmol/L BUN (7-17) mg/dL Creatinine (0.52-1.04) mg/dL Glucose (74-99) mg/dL POC Glucose (mg/dL) 139 H (70-110) mg/dL Calcium (8.4-10.2) mg/dL Total Protein (6.3-8.2) g/dL Albumin (3.5-5.0) g/dL
[2024-01-02 16:40] VITALS: BMI 17.4
[2024-01-02 16:52] LABS: Glucose,Whole Blood 125 mg/dL (70-110)
[2024-01-02] MEDS: CEFEPIME 2 GM in SODIUM CHLORIDE 0.9% 100 ML IVPB SCH (17:15)
--- NOTE | 2024-01-02 18:27 | P.PN ---
Progress Note - Text Progress Note Date: 01/02/24 - Chief Complaint Abdominal pain - History of Present Illness This is a pleasant 78-year-old patient, chronic stable medical conditions include COPD, hypertension, rheumatoid arthritis. Patient is active smoker. Patient with 3 days been having increasing abdominal pain. Presented to the ER. CT scan showed free air. Patient was taken to the OR yesterday by Dr. Lentz. Underwent exploratory laparotomy. Found to have a perforated sigmoid d iverticulitis. Sigmoid colectomy with end colostomy was done. Today in the ICU: Extubated earlier today. 2 L nasal cannula. Has NG tube to suction. No output in the colostomy bag. Son at the bedside. Pain at the surgical site. December 10: Patient moved out of the ICU. NG tube to intermittent suction. Did not sleep well yesterday. States when she tries to close her eyes she starts hallucinating. Given one-time dose of Haldol. Having significant pain at the operative site. Pain medications per surgical team. No output through colostomy bag. Discussed with nurse. Sons at the bedside. Also added Nicorette gum as needed. Hypoglycemia: Change IV fluids to D5.45. Patient on IV cefepime and IV Flagyl. December 11: NG tube in place. Plan for it to be discontinued this afternoon. Very little output from the colostomy bag. Did sleep her last night.'s some hallucinations. Discussed with the patient's son. Try to cut back on IV narcotics balance between pain control and side effects. December 12: NG tube was discontinued yesterday. Remains NPO per surgery. No output from the colostomy bag. Did not sleep well last night. Chewing gum ordered. Remains on IV cefepime. IV Flagyl. For blood pressure start Catapres patch 0.2. December 13: Patient be started on clear liquids by surgery. Some stool from the colostomy bag. Pain better. Pain switched over to oral pain medications. Abdominal wound cultures growing E. coli and alphahemolytic Streptococcus. Remains on IV cefepime and IV Flagyl. Abdominal pain better. December 14: Patient having dark stool output through the colostomy bag. Did sit up in a chair. On full liquid diet. Patient requested to have a home dose of Percocet as opposed to [place]. Ordered. Blood pressure running high. Increase Lopressor to 50 mg twice daily. December 15: Patient advance to low fiber diet today. Eating some. Abdominal pain much better. Colostomy bag working. 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 December 16: Patient complaining of increasing abdominal pain. More distention. Some stool from the colostomy bag. Patient made NPO. On antibiotics. CT scan abdomen ordered. December 17: Continues to have abdominal pain. NG tube to suction. Some stool in the colostomy bag. CT scan from yesterday showed partial versus complete bowel obstruction. December 18: Abdominal pain present. NG tube to suction. Some stool in the colostomy bag. On IV cefepime and IV Flagyl. Tired. December 19: Improvement in abdominal pain. No secondary perforation. Was felt to be partial obstruction. NG tube remains in place. Remains NPO. Patient had some chest pain this afternoon. Troponins were ordered. Cardiology was ordered. Telemetry. December 20: Patient seen by cardiology. [place] to be type II SD. 2D echo. No IV heparin. Patient having abdominal pain. NG tube remains in place. NPO. Patient was started IV peripheral nutrition. December 21: Feeling better. Decreased pain. Decreased distention. Some bowel movement in the colostomy bag. NG tube to suction. Getting peripheral nutrition. December 22: Reclining in bed. Decreased abdominal pain. Stool in the colostomy bag. NG tube to suction. Getting PPN. Fluid overload clinically and on chest x-ray. Give IV Lasix 20 mg x 2 doses December 23: Putting stool out of the colostomy bag. Decreased abdominal pain. NG tube to suction. Getting PPN. Abdominal pain is much better. Received IV Lasix x 2 doses yesterday. Edema and breathing much better. On antibiotics. Up in a recliner December 24: This is a 78-year-old female who has been followed by Dr. Elizabeth admitted for perforated sigmoid diverticulitis went for surgical repair/sigmoid colectomy with end colostomy. Patient continues on the medical floor remains n.p.o. with an NG tube in place. Repeat abdominal CT shows concern for complete bowel obstruction there is stool noted in the colostomy. Patient has positive bowel sounds throughout. She continues on antibiotics in the form of IV cefepime and IV Flagyl remains on parenteral nutrition. She received a dose of IV Lasix one- time yesterday. Potassium today 3.3. Sodium 133. 12/25/2023 Patient evaluated today resting in bed. She is reporting some increased abdominal pain and overall not feeling well. She is currently undergoing a repeat abdominal CT scan and has received the contrast. NG tube remains in place currently clamped. She does have positive bowel sounds and has some small amount of brown stool in the ostomy. Patient received a dose of IV Lasix 2 days ago for the small bilateral pleural effusions which are essentially stable at this time. Her sodium level is 133. Remains on TPN. 12/26/2023 Patient evaluated today resting in bed. She continues to report abdominal discomfort and today states that she feels nauseous. Zofran has been ordered. There continues to be a small amount of stool in the ostomy bag. A repeat abdominal pelvis CT was completed showing decrease in dilated loops of bowel throughout the abdomen comparing to immediate priors. Oral contrast extends to the rectum correlate for ileus and/or partial bowel obstruction. NG tube remains in place with output of 100 MLS overnight of gastric drainage. Patient remains on IV Flagyl and IV cefepime. Remains on TPN. 12/27/2023 Patient is evaluated today sitting up at the bedside. She is continue to have stool through the ostomy. NG tube has removed today and patient is started on clear liquid diet. He remains hyponatremic this is likely from the TPN. Remains on IV cefepime and IV Flagyl. She reports that her nausea has resolved. 12/28/2023 Patient on the medical floor, has been up to the bathroom and able to take a shower today. NG tube remains out and patient continues on clear liquid diet. No reports of nausea overnight. Abdominal pain is managed and continues on morphine and percocet. Remains on TPN as patient had difficulty with advancing diet to full liquid. 12/29/2023 Patient evaluated today sitting up in the chair. Has increased output from the ostomy and increased urine output. No shortness of breath no chest pain no nausea vomiting or diarrhea. NG tube has been out patient is been maintained on a clear liquid diet states that she is having difficulty with a full liquid diet feels like it is getting stuck and she is unable to swallow it down. 12/30/2023 Patient is evaluated today sitting up in the chair. She is underwent modified barium swallow yesterday revealing esophageal stricture and subsequently underwent an EGD with biopsy and dilation with general surgery. She has been upgraded to a full liquid diet and states that she has tolerated it well this morning. General surgery recommending to continue on the TPN until patient is tolerating increased oral intake. Her sodium today is improved to 134 renal function remains stable. She is making adequate stool from the ostomy. 12/31/2023 Patient evaluated today sitting up in the chair. Tolerating full liquid diet. Continues on TPN pending increasing oral intake. Sodium remains stable at 134. Continues to have adequate stool from the ostomy. Hemodynamically she is stable. 01/01/2024 Patient eval today sitting up in the chair. She is not reporting any abdominal discomfort and is tolerating a full liquid diet at this time. She is hoping this can be upgraded to a soft diet. She continues on TPN for the meantime until she has increased oral intake. She is making stool from the ostomy. She will be discharged to subacute rehab once stable from a surgical aspect. Her labs today show a sodium level of 134, BUN 20, creatinine 0.46, potassium 4.1. Magnesium 1.9. Her blood glucoses in the 120s. Remains afebrile and on room air. January 02: Sitting up in a chair. Was on a liquid diet. Advance to low fiber diet by surgery today. Patient's morphine was discontinued yesterday. Patient does complain of a headache but appears rather comfortable. Doing stuff on her cell phone. Stool present in the ostomy bag. Patient reported and OT noted to walk about 130 feet with a rolling walker Active Medications Albuterol Sulfate (Albuterol Nebulized 2.5 Mg/3 Ml) 2.5 mg INHALATION RT-Q4H PRN PRN Reason: Shortness Of Breath Albuterol/Ipratropium (Ipratropium-Albuterol 3 Ml Neb) 3 ml INHALATION RT-Q2H PRN PRN Reason: Shortness Of Breath Or Wheezing Albuterol/Ipratropium (Ipratropium-Albuterol 3 Ml Neb) 3 ml INHALATION RT-QID [facility] Last Admin: 01/02/24 16:23 Dose: Not Given Atorvastatin Calcium (Atorvastatin 20 Mg Tab) 20 mg PO DAILY [facility] Last Admin: 01/02/24 07:54 Dose: 20 mg Baclofen (Baclofen 10 Mg Tab) 10 mg PO HS [facility] Last Admin: 01/01/24 20:33 Dose: 10 mg Benzocaine (Benzocaine [place] 1 Can) 1 spray MUCOUS MEM QID PRN; Protocol PRN Reason: Mouth Irritation Last Admin: 12/28/23 16:04 Dose: 1 spray Benzocaine/Menthol (Benzocaine/Menthol Lozeng 1 Each Lozenge) 1 each MUCOUS MEM Q4HR PRN PRN Reason: Sore Throat Last Admin: 12/22/23 17:06 Dose: 1 each Budesonide/Formoterol Fumarate (Symbicort 160-4.5 Mcg Inhaler) 2 puff INHALATION RT-BID [facility] Last Admin: 01/02/24 08:01 Dose: 2 puff Clonidine HCl (Clonidine 0.2 Mg/24hr Patch) 1 patch TRANSDERM Q7D [facility] Last Admin: 01/02/24 17:21 Dose: 1 patch Al Hydroxide/Mg Hydroxide 30 ml/ Diphenhydramine HCl 75 mg/Lidocaine HCl 30 ml 0 ml PO TID [facility] Last Admin: 01/02/24 17:15 Dose: 5 ml Dextrose/Water (Dextrose 50% Syringe 50 Ml) 25 ml IVP PER PROTOCOL PRN; Protocol PRN Reason: Hypoglycemia Last Admin: 12/17/23 19:34 Dose: 25 ml Dextrose/Water (Dextrose 50% Syringe 50 Ml) 50 ml IVP PER PROTOCOL PRN; Protocol PRN Reason: Hypoglycemia Heparin Sodium (Porcine) (Heparin Sodium,Porcine 5,000 Unit/Ml 1 Ml Vial) 5,000 unit SQ Q8HR [facility] Last Admin: 01/02/24 17:15 Dose: 5,000 unit Hydroxychloroquine Sulfate (Hydroxychloroquine Sulfate 200 Mg Tab) 200 mg PO BID [facility] Last Admin: 01/02/24 07:57 Dose: 200 mg Fat Emulsion Intravenous (Lipids 20%) 250 mls @ 20.833 mls/hr IV [id number] [facility] Last Admin: 01/02/24 14:16 Dose: 20.833 mls/hr Parenteral Vitamin Supplement 10 ml/ Zinc/Copper/Manganese/Selenium 1 ml/ Potassium Chloride 10 meq/ Sodium Chloride 72 meq/ Sodium Acetate 40 meq/ Amino Ac/Electrol/Dextrose/Calcium 1,054 mls @ 52 mls/hr IV .[id number] [facility] Cefepime HCl 2 gm/ Sodium (Chloride) 100 mls @ 25 mls/hr IVPB Q8HR [facility]; Protocol Last Admin: 01/02/24 17:15 Dose: 25 mls/hr Losartan Potassium (Losartan 25 Mg Tab) 25 mg PO DAILY [facility] Last Admin: 01/02/24 07:54 Dose: 25 mg Metoprolol Tartrate (Metoprolol Tartrate 50 Mg Tab) 50 mg PO BID [facility] Last Admin: 01/02/24 07:54 Dose: 50 mg Metronidazole (Metronidazole 500 Mg Tab) 500 mg PO TID [facility]; Protocol Last Admin: 01/02/24 17:15 Dose: 500 mg Miscellaneous Information (Magnesium Replacement Protocol 1 Each Misc) 1 each MISCELLANE DAILY PRN; Protocol PRN Reason: Per Protocol Miscellaneous Information (Potassium Replacement Protocol 1 Each Misc) 1 each MISCELLANE DAILY PRN; Protocol PRN Reason: Per Protocol Montelukast Sodium (Montelukast 10 Mg Tab) 10 mg PO DAILY [facility] Last Admin: 01/02/24 07:54 Dose: 10 mg Naloxone HCl (Naloxone 0.4 Mg/Ml 1 Ml Vial) 0.2 mg IV Q2M PRN PRN Reason: Opioid Reversal Nicotine (Nicotine 21mg/24hr Patch) 1 patch TRANSDERM DAILY [facility] Last Admin: 01/02/24 07:55 Dose: 1 patch Nicotine Polacrilex (Nicotine Gum (Polacrilex) 2 Mg Gum) 2 mg BUCCAL Q4HR PRN PRN Reason: Nicotine Cravings Ondansetron HCl (Ondansetron 4 Mg/2 Ml Vial) 4 mg IVP Q6HR PRN PRN Reason: Nausea And Vomiting Last Admin: 12/26/23 11:44 Dose: 4 mg Oxycodone/Acetaminophen (Oxycodone-Apap 7.5-325mg 1 Each Tab) 1 each PO Q6H PRN PRN Reason: Pain Last Admin: 01/02/24 14:15 Dose: 1 each Pantoprazole Sodium (Pantoprazole 40 Mg Tablet) 40 mg PO AC-BID [facility] Last Admin: 01/02/24 17:16 Dose: 40 mg Petrolatum (Zinc Oxide Paste (Z-Guard) 1 Applic) 1 applic TOPICAL BID PRN; Protocol PRN Reason: Wound Healing Last Admin: 12/23/23 02:21 Dose: 1 applic Temazepam (Temazepam 15 Mg Cap) 15 mg PO HS PRN PRN Reason: Insomnia Last Admin: 01/01/24 20:33 Dose: 15 mg Social history: Patient been smoking for many years. Was up to 4 packs a day. Now down to a pack a day. Works at [employer]. Lives with her son. Physical examination: VITAL SIGNS: 98.4, 77, 17, 160/74, 98% room air GENERAL: Up in a recliner EYES: Pupils equal. Conjunctiva normal HEENT: External appearance of nose and ears normal, oral cavity grossly normal. Diminished hearing in the right ear. NG tube to suction NECK: JVD not raised; masses not palpable. HEART: First and second heart sounds are normal; no edema. LUNGS:[ Respiratory rate increased, diminished breath sounds. ABDOMEN: Soft, mild tenderness,, no guarding rigidity, liver spleen not palpable, no masses palpable. Left-sided colostomy bag-with stool PSYCH: [Alert and oriented x3; mood and affect anxious. MUSCULOSKELETAL:No Clubbing/cyanosis;muscles-grossly intact INVESTIGATIONS, reviewed in the clinical context: January 02: Sodium 133 potassium 4.2 creatinine 0.51 albumin 2.0 2D echocardiogram [December 21] EF 65 to 70%. Severe concentric hypertrophy. Moderate AI. And some calcification. CT scan abdomen [December 16]: Evidence of possibly complete bowel obstruction possibly December 16: White count 12.7 hemoglobin 11.9 Abdominal wound culture: E. coli and alphahemolytic Streptococcus. December 09: White count 10.8 hemoglobin 10.9 platelets 254 sodium 135 potassium 3.8 BUN 20 creatinine 0.61 Chest x-ray film personally reviewed by me-hyperinflation Telemetry strip bedside monitor: Personally reviewed by me. Sinus rhythm CT scan abdomen pelvis: Moderate prominence of the stomach. Severe wall thickening of the gastric antrum. Distal colonic diverticulosis. Free air identified anterior to the bladder. Assessment and plan: -Acute sigmoid diverticulitis with perforation. Cultures growing E. coli and alphahemolytic Streptococcus: Worsening abdominal symptoms today.: Slow to respond Patient underwent sigmoid resection and formation of her colostomy on December [address] scan abdomen [December 16:] Possibly near complete bowel obstruction. NG tube with suction: removed IV cefepime and p.o. Flagyl. stool in the colostomy bag. On liquid diet. Advance to low fiber diet by surgery today -Anterior chest wall pain. Non-ST elevation SD. Type II. Troponin positive at 0.167 with no rise and fall. Telemetry. Cardiology following. - hypertensive heart disease. Severe LVH on echo. -Severe hypokalemia: Replace Replace potassium -Secondary peritonitis from hollow viscus perforation IV cefepime and poFlagyl. ID following -COPD and a current smoker DuoNeb 3 times daily. Singulair.. Breztri inhaler -Chronic nicotine dependence, cigarette smoker Nicotine patch -Hyperlipidemia Lipitor 20 mg a day -Severe protein calorie malnutrition. BMI 17.4 Did receive peripheral nutrition Ensure -Chronic muscle spasm Baclofen as needed -Peptic ulcer disease PPI -Hypoglycemia from poor oral intake: Resolved -Peripheral nutrition: Discontinued -Essential hypertension. Lopressor to 50 mg twice daily Increase Cozaar to 50 mg a day -Insomnia with hallucinations. Restoril. Diet advance. Increase Cozaar to [address] Lentz Past Medical History Past Medical History: COPD, Hypertension, Rheumatoid Arthritis (RA) Additional Past Medical History / Comment(s): bleeding ulcer History of Any Multi-Drug Resistant Organisms: None Reported Past Surgical History: Tubal Ligation Additional Past Surgical History / Comment(s): Eye surgery (cataracts removed). Past Anesthesia/Blood Transfusion Reactions: No Reported Reaction Past Psychological History: No Psychological Hx Reported Smoking Status: Current every day smoker Past Alcohol Use History: Rare Past Drug Use History: None Reported
[2024-01-02] MEDS ORDERED: LISINOPRIL-HCTZ 10-12.5 MG 1 EACH TAB PO SCH (21:00)
[2024-01-02] MEDS: MVI, ADULT NO.4 WITH VIT K 10 ML, TRACE (CONC-1ML/DOSE) 1 ML, POTASSIUM CHLORIDE 10 MEQ... IV SCH (23:44)
[2024-01-03 00:04] LABS: Glucose,Whole Blood 117 mg/dL (70-110)
[2024-01-03 06:06] LABS: Glucose,Whole Blood 92 mg/dL (70-110)
[2024-01-03 07:28] LABS: African American GFR (CKD) >90 (>60 ml/min/1.73 sqM); Anion Gap 3 mmol/L; Blood Urea Nitrogen 16 mg/dL (7-17); Carbon Dioxide 23 mmol/L (22-30); Chloride 108 mmol/L (98-107); Glucose 92 mg/dL (74-99); Non-African American GFR(CKD) >90 (>60 ml/min/1.73 sqM); Potassium 3.9 mmol/L (3.5-5.1); Sodium 134 mmol/L (137-145)
[2024-01-03] MEDS: LOSARTAN 50 MG TAB PO SCH (09:06)
[2024-01-03 11:58] LABS: Glucose,Whole Blood 99 mg/dL (70-110)
--- NOTE | 2024-01-03 13:56 | P.PN ---
Subjective Progress Note Date: 01/03/24 The patient is seen today December 25, 2019 for follow-up on the regular medical floor. She is sitting up in bed. Awake and alert in no acute distress. Denies any worsening shortness of breath, cough or congestion. She is maintaining good O2 saturations in the 90s on room air. Chest x-ray reveals small bilateral effusions. Evidence of COPD. Nasogastric tube in good position. Right-sided PICC line in place. Follow-up CT scan of the abdomen pelvis revealed decrease in dilated loops of bowel throughout the abdomen compared to previous. Oral contrast extends to the rectum. Dilated bowel to 2.5 cm remains present. No transition point definitively visualized. Correlate for ileus and/or partial bowel obstruction. The gastric tube remains to wall suction. She remains on TPN for nutritional support. Remains on cefepime and Flagyl. Continued on bronchodilators. Sodium 133. Potassium 4.0. Bicarb 30. BUN 21. Creatinine 0.43. Glucose 95. The patient is seen today December 26, 2023 in follow-up on the regular medical floor. She is sitting up in bed. Awake and alert in no acute distress. She is maintaining good O2 saturations in the 90s on room air. Nasogastric tube remains in place. She is receiving TPN at 52 MLS per hour for nutritional support. She is continued on antibiotics in the form of cefepime and Flagyl. He is continued on bronchodilators. NicoDerm patch in place. Count 8.2. Hemoglobin 10.4. Platelets 294. Sodium 133. Potassium 3.7. Bicarb 29. BUN 18. Creatinine 0.42. Glucose 116. The patient is seen today December 27, 2023 in follow-up on the regular medical floor. She is currently resting comfortably in bed. Awake and alert in no acute distress. Maintaining O2 saturations in the 90s on room air. She is continued to have intermittent abdominal discomfort. Abdominal x-ray reveals that the air noted on the previous exam appeared to be superficial to the patient and likely within the ostomy bag. Contrast stenosis is seen to extend into the colon. Small bilateral pleural effusions. Nasogastric tube has been removed. Sodium 132. Potassium 5.0. Bicarb 27. BUN 27. Creatinine 0.55. Glucose 125. He remains on antibiotics in the form of cefepime and Flagyl. Continued on bronchodilators. NicoDerm patch in place. Heparin for DVT prophylaxis. The patient is seen today December 28, 2023 in follow-up on the regular medical floor. She is awake and alert in no acute distress. She has been up ambulating in the hallway and in her room with physical therapy assistance. Currently sitting up in a chair. Denies any worsening shortness of breath, cough or congestion. She is maintaining O2 saturations in the 90s on room air. Her nasogastric tube is out. She is being nursed with TPN at 52 mL/h. Remains on antibiotics in the form of cefepime and Flagyl. Continued on bronchodilators. Heparin for DVT prophylaxis. The patient is seen today December 29, 2023 in follow-up on the regular medical floor. She is sitting up in a chair. Awake and alert in no acute distress. She denies any worsening shortness of breath, cough or congestion. She is maintaining O2 saturations in the 90s on room air. She has been advanced to clear liquid diet. She remains with supplemental nourishment and TPN at 52 MLS per hour. She is continued on cefepime and Flagyl. DuoNeb ventilations, Pulmicort and perform scintillations, Singulair. Heparin for DVT prophylaxis. NicoDerm patch in place. Progress note dated December 30, 2023. 78-year-old female who has not been in the hospital for 22 days. She is seen today room 456. She appears to be doing much better. She continues on cefepime and Flagyl. She had an EGD done today. She is on room air. She is not receiving any IV fluids. She is getting TPN at 52 cc an hour. The NG tube was removed a few days ago. Laboratory data includes a sodium 134, potassium 4.2, c hlorides 109, CO2 25, BUN 22, creatinine 0.53. Glucose is 137. Magnesium 2, phosphorus 3.3, and calcium 7.9. Previous culture data includes anaerobic gram- negative bacilli 2 different species, from December 08, and a wound culture that was positive for both Escherichia coli, and alphahemolytic Streptococcus. The EGD today, showed mild stricture of the distal esophagus, and mild gastritis. The patient did undergo biopsy, and dilatation. Progress note dated December 31, 2023. 78-year-old female has been in the hospital now for 23 days. The patient is currently on room air. She is not receiving any IV fluids, other than her TPN at 52 cc an hour. She continues on cefepime and Flagyl. Clinically, she looks well, and she states that she may be discharged, on Tuesday. Current labs inclu de a sodium 134, potassium 4.4, chlorides 109, CO2 26, BUN 20, creatinine 0.53. Calcium is 7.9. Phosphorus 3.2, and magnesium 1.9. Progress note dated January 01, 2024. The patient is seen today in room 456. 78-year-old female who is now been in the hospital for 24 days. She continues on room air. She is getting TPN at 52 cc an hour. She continues on Flagyl, and cefepime. She is sitting in a chair next to her hospital bed. She is not having any respiratory issues at this time. He is hoping to be discharged in the next day or 2. Sodium 134, potassium 4.1, chlorides 107, CO2 27, BUN 20, creatinine 0.46. Glucose is 133. Albumin is 2.0. On today's evaluation of 01/02/2024, the patient is being seen for a follow-up. Calm and comfortable sitting up in a chair on room air oxygen. No signs of any significant respiratory distress. The patient is still recovering from abdominal surgery. The patient originally had a perforated sigmoid diverticulitis patient underwent sigmoid colectomy and end colostomy. She was also found to have a mild stricture in the distal esophagus upon his subsequent EGD and some mild gastritis and this was completed on 12/30/2023. Currently, she still on TPN for nutrition support. Her colostomy is functional. There is output in the colostomy bag.Her sodium level is at 133 with a potassium level of 4.2, BUN is at 19 with a creatinine of 0.5 and potassium level is at 4.2. Bicarb is at 27. LFTs are normal. She remains on DuoNeb updrafts, she is on Symbicort, she remains on IV cefepime and Flagyl. The intra-abdominal culture showed anaerobes and this was collected on 12/08/2023. No interval worsening in her condition. She is quite weak and cachectic and her body mass index is 17.4. On today's evaluation of 01/03/2024, the patient is doing well. The patient is tolerating diet. She had Icelandic toast earlier this morning and she had a full breakfast. Her colostomy is functional. No nausea vomiting or abdominal pain. No other new complaints otherwise for now. She remains on IV cefepime and Flagyl. No nausea. No fever. No shortness of breath. The blood work from today shows a sodium level of 134, BUN is at 16 with a creatinine of 0.4. Patient is currently on room air oxygen. Using the incentive spirometer. She is also ambulating. Objective - Vital Signs Vital signs: Vital Signs Temp 98.2 F 01/03/24 07:10 Pulse 71 01/03/24 11:53 Resp 17 01/03/24 07:10 BP 145/69 01/03/24 07:10 Pulse Ox 97 01/03/24 07:10 FiO2 30 12/09/23 10:00 Intake & Output 01/02/24 01/03/24 01/03/24 18:59 06:59 18:59 Weight 43.1 kg 43 kg Other: Voiding Method Toilet Toilet # Voids 6 4 ABP, PAP, CO, CI - Last Documented Arterial Blood Pressure 119/92 - Exam GENERAL EXAM: Awake, sitting up in bed, 78-year-old female, on room air, in no apparent distress. The patient is currently on room air oxygen HEAD: Normocephalic. EYES: Sluggish reaction of pupils, equal size. NOSE: Clear with pink turbinates. THROAT: Nasogastric tube secured in place. No erythema or exudates. NECK: No masses, no JVD. CHEST: No chest wall deformity. LUNGS: Equal air entry with faint crackles in the posterior bases. CVS: S1 and S2 normal with no audible murmur, regular rhythm. ABDOMEN: Abdominal dressing dry and intact. Left abdominal ostomy output is present. Bowel sounds are hypoactive SPINE: No scoliosis or deformity SKIN: No rashes CENTRAL NERVOUS SYSTEM: Sedated, tone is normal in all 4 extremities. EXTREMITIES: Right radial arterial line in place there is no peripheral edema. No clubbing, no cyanosis. Peripheral pulses are intact. - Labs CBC & Chem 7: 12/29/23 07:55 01/03/24 06:37 Labs: Abnormal Lab Results - Last 24 Hours (Table) 02/01/03/24 01/03/24 Range/Units 16:51 00:02 06:37 Sodium 134 L (137-145) mmol/L Chloride 108 H (98-107) mmol/L Creatinine 0.45 L (0.52-1.04) mg/dL POC Glucose (mg/dL) 125 H 117 H (70-110) mg/dL Calcium 8.0 L (8.4-10.2) mg/dL Assessment and Plan Plan: Severe acute abdominal pain secondary to perforated sigmoid diverticulitis. Status post exploratory laparotomy, sigmoid colectomy, end colostomy on December 08, 2023. Most recent CT scan of the abdomen reveals ileus versus partial small bowel obstruction. The patient had intra-abdominal sepsis with anaerobes and E. coli and alphahemolytic strep and the patient remains on a combination of cefepime and Flagyl. Clinically stable. Hemodynamically stable. Patient is tolerating diet and TPN has been discontinued, and the patient's colostomy is functional at this point in time Acute hypoxemic respiratory failure secondary to above requiring prolonged ventilation. The patient has recovered from her respiratory failure and the patient is currently on room air oxygen Severe protein calorie malnutrition with a BMI of less than 20 kg/m. History of gastric ulcers and esophagitis. Patient was also found to have a mild distal esophageal stricture. History of rheumatoid arthritis. History of chronic obstructive pulmonary disease. History of chronic tobacco dependence. History of hypertension. History of hyperlipidemia. History of gastroesophageal reflux disease. Plan: Encouraged use of incentive spirometer Increase mobility Continue IV cefepime and Flagyl TPN has been discontinued and the patient is being advanced on her diet Continue DuoNeb updrafts Continue Symbicort We will continue to follow
--- NOTE | 2024-01-03 15:22 | P.PN ---
Subjective Progress Note Date: 01/03/24 Principal diagnosis: Reason for follow-up is perforated diverticulitis and abscess Patient is a 78-year-old female with a past medical history significant for COPD hypertension rheumatoid arthritis presenting to the ER for evaluation of epigastric abdominal pain, patient did have a CT abdominal pelvis concerning for free subsequently taken to the OR status post laparotomy with evidence of perforated sigmoid diverticulitis status post sigmoid colectomy and end colostomy. Patient is status post EGD with biopsy and dilatation with evidence of mild stricture distal esophagus and mild gastritis completed on 12/30/2023 On today's visit that is 01/03/2024,the patient remains to be afebrile, patient is on room air not requiring supplemental oxygen and denies any shortness of breath no chest pain or cough.Patient denies having any nausea or vomiting, no abdominal pain and tolerating a regular diet. Patient did have a creatinine 0.45 no CBC was done today last white count normal Objective - Vital Signs Vital signs: Vital Signs Temp 97.2 F L 01/03/24 13:49 Pulse 77 01/03/24 13:49 Resp 18 01/03/24 13:49 BP 118/62 01/03/24 13:49 Pulse Ox 99 01/03/24 13:49 FiO2 30 12/09/23 10:00 Intake & Output 01/02/24 01/03/24 01/03/24 18:59 06:59 18:59 Weight 43.1 kg 43 kg Other: Voiding Method Toilet Toilet # Voids 6 4 1 ABP, PAP, CO, CI - Last Documented Arterial Blood Pressure 119/92 - Exam GENERAL DESCRIPTION: An elderly female lying in bed in no distress RESPIRATORY SYSTEM: Unlabored breathing , decreased breath sounds at bases HEART: S1 S2 regular rate and rhythm , ABDOMEN: Soft , mild tenderness EXTREMITIES: No edema feet - Labs CBC & Chem 7: 12/29/23 07:55 01/03/24 06:37 Labs: Abnormal Lab Results - Last 24 Hours (Table) 01/02/24 01/03/24 01/03/24 Range/Units 16:51 00:02 06:37 Sodium 134 L (137-145) mmol/L Chloride 108 H (98-107) mmol/L Creatinine 0.45 L (0.52-1.04) mg/dL POC Glucose (mg/dL) 125 H 117 H (70-110) mg/dL Calcium 8.0 L (8.4-10.2) mg/dL Assessment and Plan (1) Intra-abdominal abscess Current Visit: Yes Status: Acute Code(s): K65.1 - PERITONEAL ABSCESS SNOMED Code(s): 57135131 (2) Allergy to multiple antibiotics Current Visit: Yes Status: Acute Code(s): Z88.1 - ALLERGY STATUS TO OTHER ANTIBIOTIC AGENTS SNOMED Code(s): 487946866 (3) Perforated viscus Current Visit: Yes Status: Acute Code(s): R19.8 - OTH SYMPTOMS AND SIGNS I NVOLVING THE DGSTV SYS AND ABDOMEN SNOMED Code(s): 086460156 Plan: 1patient presented to hospital with abdominal pain has been diagnosed with a perforated viscus in this patient was status post laparotomy with evidence of perforated sigmoid diverticulitis status post laparotomy sigmoid colectomy and end colostomy for likely organism need to cover will be enteric gram-negative both aerobes and anaerobes 2-patient did have repeat CT has with evidence of partial versus complete bowel obstruction NG has been placed which the patient has been tolerating 3-the patient remains to be afebrile, white count has been normal, patient did have a follow-up CT on 12/25/2023 and it shows improvement in the bowel dilatation pattern no abscess and did have EGD with evidence of gastritis and did have some dilatation done 4- patient has shown clinical improvement tolerating regular diet we will discontinue cefepime short course of oral Cefdinar and Flagyl Dictation was produced using [employer] dictation software. please excuse any grammatical, word or spelling errors. Time with Patient: Less than 30
--- NOTE | 2024-01-03 15:56 | P.PN ---
Subjective Progress Note Date: 01/03/24 CHIEF COMPLAINT: Perforated sigmoid diverticulitis HISTORY OF PRESENT ILLNESS: Patient is status post exploratory laparotomy, sigmoid colectomy and end colostomy on 12/08/23. Patient sitting in bed. She re ports her pain is controlled. Ostomy is functioning. She tolerated the low fiber diet. TPN has been weaned off. Afebrile. PHYSICAL EXAM: VITAL SIGNS: Reviewed. GENERAL: Well-developed in no acute distress. ABDOMEN: Nondistended. Minimal tenderness at incision site incision clean dry intact. James in place. Stool present in ostomy bag NEUROLOGIC: Alert and oriented. Cranial nerves II through XII grossly intact. ASSESSMENT: 1. Perforated sigmoid diverticulitis status post exploratory laparotomy, sigmoid colectomy with end colostomy 2. Small bowel obstruction versus ileus after recent surgery 3. Urinary retention resolved 4. Hypokalemia improved 5. Dysphagia status post EGD with esophageal dilation for esophageal stricture PLAN: -Anticipate discharge to [facility] tomorrow -Continue low fiber diet -Discharge antibiotics per infectious disease -Encourage patient to use incentive spirometer -Encourage patient to increase activity level. -Continue pain management -GI prophylaxis Protonix DVT prophylaxis subcu heparin Physician Levi Maker note has been reviewed by physician. Signing provider agrees with the documented findings, assessment, and plan of care. Objective - Vital Signs Vital signs: Vital Signs Temp 97.2 F L 01/03/24 13:49 Pulse 77 01/03/24 13:49 Resp 18 01/03/24 13:49 BP 118/62 01/03/24 13:49 Pulse Ox 99 01/03/24 13:49 FiO2 30 12/09/23 10:00 Intake & Output 01/02/24 01/03/24 01/03/24 18:59 06:59 18:59 Weight 43.1 kg 43 kg Other: Voiding Method Toilet Toilet # Voids 6 4 1 ABP, PAP, CO, CI - Last Documented Arterial Blood Pressure 119/92 - Labs CBC & Chem 7: 12/29/23 07:55 01/03/24 06:37 Labs: Abnormal Lab Results - Last 24 Hours (Table) 01/02/24 01/03/24 01/03/24 Range/Units 16:51 00:02 06:37 Sodium 134 L (137-145) mmol/L Chloride 108 H (98-107) mmol/L Creatinine 0.45 L (0.52-1.04) mg/dL POC Glucose (mg/dL) 125 H 117 H (70-110) mg/dL Calcium 8.0 L (8.4-10.2) mg/dL
--- NOTE | 2024-01-03 15:58 | P.PN ---
Progress Note - Text Progress Note Date: 01/03/24 - Chief Complaint Abdominal pain - History of Present Illness This is a pleasant 78-year-old patient, chronic stable medical conditions include COPD, hypertension, rheumatoid arthritis. Patient is active smoker. Patient with 3 days been having increasing abdominal pain. Presented to the ER. CT scan showed free air. Patient was taken to the OR yesterday by Dr. Lentz. Underwent exploratory laparotomy. Found to have a perforated sigmoid d iverticulitis. Sigmoid colectomy with end colostomy was done. Today in the ICU: Extubated earlier today. 2 L nasal cannula. Has NG tube to suction. No output in the colostomy bag. Son at the bedside. Pain at the surgical site. December 10: Patient moved out of the ICU. NG tube to intermittent suction. Did not sleep well yesterday. States when she tries to close her eyes she starts hallucinating. Given one-time dose of Haldol. Having significant pain at the operative site. Pain medications per surgical team. No output through colostomy bag. Discussed with nurse. Sons at the bedside. Also added Nicorette gum as needed. Hypoglycemia: Change IV fluids to D5.45. Patient on IV cefepime and IV Flagyl. December 11: NG tube in place. Plan for it to be discontinued this afternoon. Very little output from the colostomy bag. Did sleep her last night.'s some hallucinations. Discussed with the patient's son. Try to cut back on IV narcotics balance between pain control and side effects. December 12: NG tube was discontinued yesterday. Remains NPO per surgery. No output from the colostomy bag. Did not sleep well last night. Chewing gum ordered. Remains on IV cefepime. IV Flagyl. For blood pressure start Catapres patch 0.2. December 13: Patient be started on clear liquids by surgery. Some stool from the colostomy bag. Pain better. Pain switched over to oral pain medications. Abdominal wound cultures growing E. coli and alphahemolytic Streptococcus. Remains on IV cefepime and IV Flagyl. Abdominal pain better. December 14: Patient having dark stool output through the colostomy bag. Did sit up in a chair. On full liquid diet. Patient requested to have a home dose of Percocet as opposed to [place]. Ordered. Blood pressure running high. Increase Lopressor to 50 mg twice daily. December 15: Patient advance to low fiber diet today. Eating some. Abdominal pain much better. Colostomy bag working. 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 December 16: Patient complaining of increasing abdominal pain. More distention. Some stool from the colostomy bag. Patient made NPO. On antibiotics. CT scan abdomen ordered. December 17: Continues to have abdominal pain. NG tube to suction. Some stool in the colostomy bag. CT scan from yesterday showed partial versus complete bowel obstruction. December 18: Abdominal pain present. NG tube to suction. Some stool in the colostomy bag. On IV cefepime and IV Flagyl. Tired. December 19: Improvement in abdominal pain. No secondary perforation. Was felt to be partial obstruction. NG tube remains in place. Remains NPO. Patient had some chest pain this afternoon. Troponins were ordered. Cardiology was ordered. Telemetry. December 20: Patient seen by cardiology. [place] to be type II [place]. 2D echo. No IV heparin. Patient having abdominal pain. NG tube remains in place. NPO. Patient was started IV peripheral nutrition. December 21: Feeling better. Decreased pain. Decreased distention. Some bowel movement in the colostomy bag. NG tube to suction. Getting peripheral nutrition. December 22: Reclining in bed. Decreased abdominal pain. Stool in the colostomy bag. NG tube to suction. Getting PPN. Fluid overload clinically and on chest x-ray. Give IV Lasix 20 mg x 2 doses December 23: Putting stool out of the colostomy bag. Decreased abdominal pain. NG tube to suction. Getting PPN. Abdominal pain is much better. Received IV Lasix x 2 doses yesterday. Edema and breathing much better. On antibiotics. Up in a recliner December 24: This is a 78-year-old female who has been followed by Dr. Elizabeth admitted for perforated sigmoid diverticulitis went for surgical repair/sigmoid colectomy with end colostomy. Patient continues on the medical floor remains n.p.o. with an NG tube in place. Repeat abdominal CT shows concern for complete bowel obstruction there is stool noted in the colostomy. Patient has positive bowel sounds throughout. She continues on antibiotics in the form of IV cefepime and IV Flagyl remains on parenteral nutrition. She received a dose of IV Lasix one- time yesterday. Potassium today 3.3. Sodium 133. 12/25/2023 Patient evaluated today resting in bed. She is reporting some increased abdominal pain and overall not feeling well. She is currently undergoing a repeat abdominal CT scan and has received the contrast. NG tube remains in place currently clamped. She does have positive bowel sounds and has some small amount of brown stool in the ostomy. Patient received a dose of IV Lasix 2 days ago for the small bilateral pleural effusions which are essentially stable at this time. Her sodium level is 133. Remains on TPN. 12/26/2023 Patient evaluated today resting in bed. She continues to report abdominal discomfort and today states that she feels nauseous. Zofran has been ordered. There continues to be a small amount of stool in the ostomy bag. A repeat abdominal pelvis CT was completed showing decrease in dilated loops of bowel throughout the abdomen comparing to immediate priors. Oral contrast extends to the rectum correlate for ileus and/or partial bowel obstruction. NG tube remains in place with output of 100 MLS overnight of gastric drainage. Patient remains on IV Flagyl and IV cefepime. Remains on TPN. 12/27/2023 Patient is evaluated today sitting up at the bedside. She is continue to have stool through the ostomy. NG tube has removed today and patient is started on clear liquid diet. He remains hyponatremic this is likely from the TPN. Remains on IV cefepime and IV Flagyl. She reports that her nausea has resolved. 12/28/2023 Patient on the medical floor, has been up to the bathroom and able to take a shower today. NG tube remains out and patient continues on clear liquid diet. No reports of nausea overnight. Abdominal pain is managed and continues on morphine and percocet. Remains on TPN as patient had difficulty with advancing diet to full liquid. 12/29/2023 Patient evaluated today sitting up in the chair. Has increased output from the ostomy and increased urine output. No shortness of breath no chest pain no nausea vomiting or diarrhea. NG tube has been out patient is been maintained on a clear liquid diet states that she is having difficulty with a full liquid diet feels like it is getting stuck and she is unable to swallow it down. 12/30/2023 Patient is evaluated today sitting up in the chair. She is underwent modified barium swallow yesterday revealing esophageal stricture and subsequently underwent an EGD with biopsy and dilation with general surgery. She has been upgraded to a full liquid diet and states that she has tolerated it well this morning. General surgery recommending to continue on the TPN until patient is tolerating increased oral intake. Her sodium today is improved to 134 renal function remains stable. She is making adequate stool from the ostomy. 12/31/2023 Patient evaluated today sitting up in the chair. Tolerating full liquid diet. Continues on TPN pending increasing oral intake. Sodium remains stable at 134. Continues to have adequate stool from the ostomy. Hemodynamically she is stable. 01/01/2024 Patient eval today sitting up in the chair. She is not reporting any abdominal discomfort and is tolerating a full liquid diet at this time. She is hoping this can be upgraded to a soft diet. She continues on TPN for the meantime until she has increased oral intake. She is making stool from the ostomy. She will be discharged to subacute rehab once stable from a surgical aspect. Her labs today show a sodium level of 134, BUN 20, creatinine 0.46, potassium 4.1. Magnesium 1.9. Her blood glucoses in the 120s. Remains afebrile and on room air. January 02: Sitting up in a chair. Was on a liquid diet. Advance to low fiber diet by surgery today. Patient's morphine was discontinued yesterday. Patient does complain of a headache but appears rather comfortable. Doing stuff on her cell phone. Stool present in the ostomy bag. Patient reported and OT noted to walk about 130 feet with a rolling walker January 03: Feeling much better. No headache. On a smart phone. Tolerating diet better. Colostomy working. Did walk with a walker. Hoping to get discharged to rehab tomorrow. Minimal to no abdominal pain. Active Medications Albuterol Sulfate (Albuterol Nebulized 2.5 Mg/3 Ml) 2.5 mg INHALATION RT-Q4H PRN PRN Reason: Shortness Of Breath Albuterol/Ipratropium (Ipratropium-Albuterol 3 Ml Neb) 3 ml INHALATION RT-Q2H PRN PRN Reason: Shortness Of Breath Or Wheezing Albuterol/Ipratropium (Ipratropium-Albuterol 3 Ml Neb) 3 ml INHALATION RT-QID [facility] Last Admin: 01/03/24 11:51 Dose: 3 ml Atorvastatin Calcium (Atorvastatin 20 Mg Tab) 20 mg PO DAILY [facility] [place] Last Admin: 01/03/24 09:07 Dose: 20 mg Baclofen (Baclofen 10 Mg Tab) 10 mg PO HS [facility] [place] Last Admin: 01/02/24 20:44 Dose: 10 mg Benzocaine (Benzocaine [place] 1 Can) 1 spray MUCOUS MEM QID PRN; Protocol PRN Reason: Mouth Irritation Last Admin: 12/28/23 16:04 Dose: 1 spray Benzocaine/Menthol (Benzocaine/Menthol Lozeng 1 Each Lozenge) 1 each MUCOUS MEM Q4HR PRN PRN Reason: Sore Throat Last Admin: 12/22/23 17:06 Dose: 1 each Budesonide/Formoterol Fumarate (Symbicort 160-4.5 Mcg Inhaler) 2 puff INHALATION RT-BID [facility] [place] Last Admin: 01/03/24 09:08 Dose: 2 puff Cefdinir (Cefdinir 300 Mg Cap) 300 mg PO BID [facility] [place]; Protocol Clonidine HCl (Clonidine 0.2 Mg/24hr Patch) 1 patch TRANSDERM Q7D [facility] [place] Last Admin: 01/02/24 17:21 Dose: 1 patch Al Hydroxide/Mg Hydroxide 30 ml/ Diphenhydramine HCl 75 mg/Lidocaine HCl 30 ml 0 ml PO TID [facility] [place] Last Admin: 01/03/24 15:33 Dose: 5 ml Dextrose/Water (Dextrose 50% Syringe 50 Ml) 25 ml IVP PER PROTOCOL PRN; Protocol PRN Reason: Hypoglycemia Last Admin: 12/17/23 19:34 Dose: 25 ml Dextrose/Water (Dextrose 50% Syringe 50 Ml) 50 ml IVP PER PROTOCOL PRN; Protocol PRN Reason: Hypoglycemia Heparin Sodium (Porcine) (Heparin Sodium,Porcine 5,000 Unit/Ml 1 Ml Vial) 5,000 unit SQ Q8HR [facility] [place] Last Admin: 01/03/24 15:32 Dose: 5,000 unit Hydroxychloroquine Sulfate (Hydroxychloroquine Sulfate 200 Mg Tab) 200 mg PO BID [facility] [place] Last Admin: 01/03/24 09:15 Dose: 200 mg Losartan Potassium (Losartan 50 Mg Tab) 50 mg PO DAILY [facility] Last Admin: 01/03/24 09:06 Dose: 50 mg Metoprolol Tartrate (Metoprolol Tartrate 50 Mg Tab) 50 mg PO BID [facility] [place] Last Admin: 01/03/24 09:07 Dose: 50 mg Metronidazole (Metronidazole 500 Mg Tab) 500 mg PO TID ANN; Protocol Last Admin: 01/03/24 15:32 Dose: 500 mg Miscellaneous Information (Magnesium Replacement Protocol 1 Each Misc) 1 each MISCELLANE DAILY PRN; Protocol PRN Reason: Per Protocol Miscellaneous Information (Potassium Replacement Protocol 1 Each Misc) 1 each MISCELLANE DAILY PRN; Protocol PRN Reason: Per Protocol Montelukast Sodium (Montelukast 10 Mg Tab) 10 mg PO DAILY [facility] [place] Last Admin: 01/03/24 09:07 Dose: 10 mg Naloxone HCl (Naloxone 0.4 Mg/Ml 1 Ml Vial) 0.2 mg IV Q2M PRN PRN Reason: Opioid Reversal Nicotine (Nicotine 21mg/24hr Patch) 1 patch TRANSDERM DAILY [facility] [place] Last Admin: 01/03/24 09:04 Dose: 1 patch Nicotine Polacrilex (Nicotine Gum (Polacrilex) 2 Mg Gum) 2 mg BUCCAL Q4HR PRN PRN Reason: Nicotine Cravings Ondansetron HCl (Ondansetron 4 Mg/2 Ml Vial) 4 mg IVP Q6HR PRN PRN Reason: Nausea And Vomiting Last Admin: 12/26/23 11:44 Dose: 4 mg Oxycodone/Acetaminophen (Oxycodone-Apap 7.5-325mg 1 Each Tab) 1 each PO Q6H PRN PRN Reason: Pain Last Admin: 01/03/24 15:32 Dose: 1 each Pantoprazole Sodium (Pantoprazole 40 Mg Tablet) 40 mg PO AC-BID [facility] [place] [place] Last Admin: 01/03/24 06:06 Dose: 40 mg Petrolatum (Zinc Oxide Paste (Z-Guard) 1 Applic) 1 applic TOPICAL BID PRN; Protocol PRN Reason: Wound Healing Last Admin: 12/23/23 02:21 Dose: 1 applic Temazepam (Temazepam 15 Mg Cap) 15 mg PO HS PRN PRN Reason: Insomnia Last Admin: 01/02/24 20:44 Dose: 15 mg Social history: Patient been smoking for many years. Was up to 4 packs a day. Now down to a pack a day. Works at [employer]. Lives with her son. Physical examination: VITAL SIGNS: 97.2, 77, 18, 1 one 8 x 62, 99% room air GENERAL: Up in a recliner, on her smart phone EYES: Pupils equal. Conjunctiva normal HEENT: External appearance of nose and ears normal, oral cavity grossly normal. Diminished hearing in the right ear. NG tube to suction NECK: JVD not raised; masses not palpable. HEART: First and second heart sounds are normal; no edema. LUNGS:[ Respiratory rate normal diminished breath sounds. ABDOMEN: Soft, minimal tenderness,, no guarding rigidity, liver spleen not palpable, no masses palpable. Left-sided colostomy bag-with stool PSYCH: [Alert and oriented x3; mood and affect anxious. MUSCULOSKELETAL:No Clubbing/cyanosis;muscles-grossly intact INVESTIGATIONS, reviewed in the clinical context: January 03: Potassium 3.9 creatinine 0.45 January 02: Sodium 133 potassium 4.2 creatinine 0.51 albumin 2.0 2D echocardiogram [December 21] EF 65 to 70%. Severe concentric hypertrophy. Moderate AI. And some calcification. CT scan abdomen [December 16]: Evidence of possibly complete bowel obstruction possibly December 16: White count 12.7 hemoglobin 11.9 Abdominal wound culture: E. coli and alphahemolytic Streptococcus. December 09: White count 10.8 hemoglobin 10.9 platelets 254 sodium 135 potassium 3.8 BUN 20 creatinine 0.61 Chest x-ray film personally reviewed by me-hyperinflation Telemetry strip bedside monitor: Personally reviewed by me. Sinus rhythm CT scan abdomen pelvis: Moderate prominence of the stomach. Severe wall thickening of the gastric antrum. Distal colonic diverticulosis. Free air identified anterior to the bladder. Assessment and plan: -Acute sigmoid diverticulitis with perforation. Cultures growing E. coli and alphahemolytic Streptococcus: Worsening abdominal symptoms today.: Slow to respond Patient underwent sigmoid resection and formation of her colostomy on December [address] scan abdomen [December 16:] Possibly near complete bowel obstruction. NG tube with suction: removed IV cefepime and p.o. Flagyl. stool in the colostomy bag. low fiber diet being tolerated -Anterior chest wall pain. Non-ST elevation IL. Type II. Troponin positive at 0.167 with no rise and fall. Telemetry. Cardiology following. - hypertensive heart disease. Severe LVH on echo. -Severe hypokalemia: Replace Replace potassium -Secondary peritonitis from hollow viscus perforation IV cefepime and poFlagyl. ID following -COPD and a current smoker DuoNeb 3 times daily. Singulair.. Breztri inhaler -Chronic nicotine dependence, cigarette smoker Nicotine patch -Hyperlipidemia Lipitor 20 mg a day -Severe protein calorie malnutrition. BMI 17.4 Did receive peripheral nutrition Ensure -Chronic muscle spasm Baclofen as needed -Peptic ulcer disease PPI -Hypoglycemia from poor oral intake: Resolved -Peripheral nutrition: Discontinued -Essential hypertension. Lopressor to 50 mg twice daily Cozaar to 50 mg a day -Insomnia with hallucinations. Restoril. Doing better. Low fiber diet. Plan for possible discharge to rehab tomorrow. Thank you Dr. Lentz Past Medical History Past Medical History: COPD, Hypertension, Rheumatoid Arthritis (RA) Additional Past Medical History / Comment(s): bleeding ulcer History of Any Multi-Drug Resistant Organisms: None Reported Past Surgical History: Tubal Ligation Additional Past Surgical History / Comment(s): Eye surgery (cataracts removed). Past Anesthesia/Blood Transfusion Reactions: No Reported Reaction Past Psychological History: No Psychological Hx Reported Smoking Status: Current every day smoker Past Alcohol Use History: Rare Past Drug Use History: None Reported
[2024-01-03 18:29] LABS: Glucose,Whole Blood 126 mg/dL (70-110)
[2024-01-03] MEDS: CEFDINIR 300 MG CAP PO SCH (21:43)
[2024-01-04 01:52] LABS: Glucose,Whole Blood 94 mg/dL (70-110)
[2024-01-04 05:55] LABS: Glucose,Whole Blood 93 mg/dL (70-110)
[2024-01-04 06:54] LABS: African American GFR (CKD) >90 (>60 ml/min/1.73 sqM); Anion Gap 1 mmol/L; Blood Urea Nitrogen 18 mg/dL (7-17); Calcium 8.2 mg/dL (8.4-10.2); Carbon Dioxide 25 mmol/L (22-30); Chloride 108 mmol/L (98-107); Glucose 84 mg/dL (74-99); Magnesium 1.9 mg/dL (1.6-2.3); Non-African American GFR(CKD) >90 (>60 ml/min/1.73 sqM); Phosphorus 3.6 mg/dL (2.5-4.5); Potassium 3.8 mmol/L (3.5-5.1); Sodium 134 mmol/L (137-145)
[2024-01-04] MEDS: LACTATED RINGERS 1,000 ML IV SCH (08:49)
[2024-01-04 11:41] LABS: Glucose,Whole Blood 117 mg/dL (70-110)
--- NOTE | 2024-01-04 12:05 | P.PN ---
Subjective Progress Note Date: 01/04/24 Principal diagnosis: Reason for follow-up is perforated diverticulitis and abscess Patient is a 78-year-old female with a past medical history significant for COPD hypertension rheumatoid arthritis presenting to the ER for evaluation of epigastric abdominal pain, patient did have a CT abdominal pelvis concerning for free subsequently taken to the OR status post laparotomy with evidence of perforated sigmoid diverticulitis status post sigmoid colectomy and end colostomy. Patient is status post EGD with biopsy and dilatation with evidence of mild stricture distal esophagus and mild gastritis completed on 12/30/2023 On today's visit that is 01/04/2024, the patient continues to be afebrile, the patient is on room air and breathing comfortably, the Pt denies having any chest pain or cough, the patient denies having any abdominal pain no vomiting, patient be tolerating her diet. Patient did have a creatinine 0.55 Objective - Vital Signs Vital signs: Vital Signs Temp 98.6 F 01/04/24 07:26 Pulse 72 01/04/24 08:24 Resp 19 01/04/24 08:00 BP 127/68 01/04/24 07:26 Pulse Ox 97 01/04/24 07:26 FiO2 30 12/09/23 10:00 Intake & Output 01/03/24 01/04/24 01/04/24 18:59 06:59 18:59 Output Total 200 400 Balance -200 -400 Weight 42.5 kg Output: Urine 0 Stool 200 400 Other: Voiding Method Toilet Toilet Toilet # Voids 1 6 6 ABP, PAP, CO, CI - Last Documented Arterial Blood Pressure 119/92 - Exam GENERAL DESCRIPTION: An elderly female lying in bed in no distress RESPIRATORY SYSTEM: Unlabored breathing , decreased breath sounds at bases HEART: S1 S2 regular rate and rhythm , ABDOMEN: Soft , mild tenderness EXTREMITIES: No edema feet - Labs CBC & Chem 7: 12/29/23 07:55 01/04/24 06:04 Labs: Abnormal Lab Results - Last 24 Hours (Table) 01/03/24 01/04/24 01/04/24 Range/Units 18:27 06:04 11:40 Sodium 134 L (137-145) mmol/L Chloride 108 H (98-107) mmol/L BUN 18 H (7-17) mg/dL POC Glucose (mg/dL) 126 H 117 H (70-110) mg/dL Calcium 8.2 L (8.4-10.2) mg/dL Assessment and Plan (1) Intra-abdominal abscess Current Visit: Yes Status: Acute Code(s): K65.1 - PERITONEAL ABSCESS SNOMED Code(s): 05812819 (2) Allergy to multiple antibiotics Current Visit: Yes Status: Acute Code(s): Z88.1 - ALLERGY STATUS TO OTHER ANTIBIOTIC AGENTS SNOMED Code(s): 146353374 (3) Perforated viscus Current Visit: Yes Status: Acute Code(s): R19.8 - OTH SYMPTOMS AND SIGNS INVOLVING THE DGSTV SYS AND ABDOMEN SNOMED Code(s): 131759139 Plan: 1patient presented to hospital with abdominal pain has been diagnosed with a perforated viscus in this patient was status post laparotomy with evidence of perforated sigmoid diverticulitis status post laparotomy sigmoid colectomy and end colostomy for likely organism need to cover will be enteric gram-negative both aerobes and anaerobes 2-patient did have repeat CT has with evidence of partial versus complete bowel obstruction NG has been placed which the patient has been tolerating 3-the patient remains to be afebrile, white count has been normal, patient did have a follow-up CT on 12/25/2023 and it shows improvement in the bowel dilatation pattern no abscess and did have EGD with evidence of gastritis and did have some dilatation done 4- patient has shown clinical improvement tolerating regular diet patient is currently on oral Cefdinar and Flagyl may continue for few days Dictation was produced using [employer] dictation software. please excuse any grammatical, word or spelling errors. Time with Patient: Less than 30
[2024-01-04] MEDS: METOPROLOL TARTRATE 50 MG TAB PO STA (13:43)
[2024-01-04 14:18] VITALS: BP 113/63; RESP 18; TEMP 98
--- NOTE | 2024-01-04 14:22 | P.DS ---
Providers Date of admission: 12/08/23 04:19 Expected date of discharge: 01/04/24 Attending physician: Demetrio Lentz Consults: 12/08/23 10:36 Consult Physician Urgent Consulting Provider: Maurice Mendez Consult Reason/Comments: ICU management Do you want consulting provider notified?: Already Contacted 12/08/23 11:29 Consult Physician Routine Consulting Provider: Konstantin Nevarez Consult Reason/Comments: Perforated sigmoid diverticulitis Do you want consulting provider notified?: Yes 12/09/23 10:04 Consult Physician Urgent Consulting Provider: Kwan Elizabeth Consult Reason/Comments: medical management Do you want consulting provider notified?: Already Contacted Primary care physician: Denys Kaufman Hospital Course: Discharge diagnosis 1. Perforated sigmoid diverticulitis status post exploratory laparotomy, sigmoid colectomy with end colostomy 2. Small bowel obstruction versus ileus after recent surgery resolved 3. Urinary retention resolved 4. Hypokalemia improved 5. Dysphagia status post EGD with esophageal dilation for esophageal stricture Hospital course This is a 78-year-old female who presented to the hospital with complaints of severe upper abdominal pain. She had a CT scan that had shown large volume of free air. She was taken to the OR for exploratory laparotomy, sigmoid colectomy and end colostomy for perforated sigmoid diverticulitis on 12/08/2023. On 12/16/2023 patient had increased abdominal pain and bloating. She was made n.p.o. and a CT scan abdomen and pelvis completed which was suspicious of a partial small bowel obstruction. Patient has had a prolonged hospitalization due to the fact that she did develop a small bowel obstruction versus ileus which was managed medically with NG tube placement. She did require TPN for nutrition support. Patient small bowel obstruction/ileus did resolve without surgical management. NG tube was eventually able to be removed and started on clear liquid diet. When advance to full liquids patient started to have dysphagia. She was evaluated by speech therapy. Patient then needed an EGD with dilation for esophageal stricture. Patient's diet has since then been gradually increas ed. She is tolerating diet. Her pain is controlled. She has been ambulating. She has been working with physical therapy they are recommending ECF at discharge. She is afebrile. Her ostomy is functioning. Her incision site is clean dry and intact. She is stable for discharge. Please refer to chart for any further details. Physician Nan[employer] Technologist note has been reviewed by physician. Signing provider agrees with the documented findings, assessment, and plan of care. Patient Condition at Discharge: Stable Plan - Discharge Summary Discharge Rx Participant: Yes New Discharge Prescriptions: New Losartan [Cozaar] 50 mg PO DAILY tab Nicotine 21Mg/24Hr Patch [Habitrol] 1 patch TRANSDERM DAILY patch Nicotine Gum (Polacrilex) [Nicorette] 2 mg BUCCAL Q4HR PRN pieceofgum PRN Reason: Nicotine Cravings Budesonide-Formot 160-4.5 Mcg [Symbicort 160-4.5 Mcg Inhaler] 2 puff INHALATION RT-BID each Cefdinir [Omnicef] 300 mg PO BID 3 Days #6 cap Ipratropium-Albuterol Nebulize [Duoneb 0.5 mg-3 mg/3 ml Soln] 3 ml INHALATION TID each Metoprolol Tartrate [Lopressor] 100 mg PO BID #1 tab metroNIDAZOLE [Flagyl] 500 mg PO TID 3 Days #9 tab Continue Pantoprazole [Protonix] 40 mg PO AC-BID #60 tablet. Atorvastatin [Lipitor] 20 mg PO DAILY Budesonide/Glycopyr/Formoterol [Breztri Aerosphere Inhaler] 2 puff INHALATION RT-BID Albuterol Sulfate [Albuterol Sulfate Hfa] 2 puff PO RT-Q4H PRN PRN Reason: Shortness Of Breath oxyCODONE-APAP 7.5-325MG [Percocet 7.5-325 mg] 1 tab PO Q6H PRN 3 Days #12 tab PRN Reason: Pain Hydroxychloroquine Sulfate [Plaquenil] 200 mg PO BID Montelukast [Singulair] 10 mg PO DAILY Baclofen 10 mg PO HS Discontinued Metoprolol Tartrate [Lopressor] 25 mg PO BID #60 tab cefUROXime axetiL [Ceftin] 500 mg PO BID Promethazine/Dextromethorphan [Promethazine-Dm Syrup] 5 ml PO Q4H PRN PRN Reason: Cough Discharge Medication List Pantoprazole [Protonix] 40 mg PO AC-BID #60 tablet. 05/30/19 [Rx] Atorvastatin [Lipitor] 20 mg PO DAILY 05/08/20 [History] Albuterol Sulfate [Albuterol Sulfate Hfa] 2 puff PO RT-Q4H PRN 12/08/23 [History] Baclofen 10 mg PO HS 12/08/23 [History] Budesonide/Glycopyr/Formoterol [Breztri Aerosphere Inhaler] 2 puff INHALATION RT-BID 12/08/23 [History] Hydroxychloroquine Sulfate [Plaquenil] 200 mg PO BID 12/08/23 [History] Montelukast [Singulair] 10 mg PO DAILY 12/08/23 [History] Budesonide-Formot 160-4.5 Mcg [Symbicort 160-4.5 Mcg Inhaler] 2 puff INHALATION RT-BID each 01/04/24 [Rx] Cefdinir [Omnicef] 300 mg PO BID 3 Days #6 cap 01/04/24 [Rx] Ipratropium-Albuterol Nebulize [Duoneb 0.5 mg-3 mg/3 ml Soln] 3 ml INHALATION TID each 01/04/24 [Rx] Losartan [Cozaar] 50 mg PO DAILY tab 01/04/24 [Rx] Metoprolol Tartrate [Lopressor] 100 mg PO BID #1 tab 01/04/24 [Rx] Nicotine 21Mg/24Hr Patch [Habitrol] 1 patch TRANSDERM DAILY patch 01/04/24 [Rx] Nicotine Gum (Polacrilex) [Nicorette] 2 mg BUCCAL Q4HR PRN pieceofgum 01/04/24 [Rx] metroNIDAZOLE [Flagyl] 500 mg PO TID 3 Days #9 tab 01/04/24 [Rx] oxyCODONE-APAP 7.5-325MG [Percocet 7.5-325 mg] 1 tab PO Q6H PRN 3 Days #12 tab 01/04/24 [Rx] Follow up Appointment(s)/Referral(s): [facility], [NON-STAFF] - As Needed Denys Kaufman DO [Primary Care Provider] - 1-2 days Demetrio Lentz MD [Medical Doctor] - 1 Week Activity/Diet/Wound Care/Special Instructions: No driving while taking Percocet No lifting over 10 pounds You may shower. No soaking or tub baths for 2 weeks Very light activity until you are reevaluated at your follow up appointment with your surgeon Discharge Disposition: TRANSFER TO SNF/ECF
[2024-01-04 15:55] VITALS: PULSE 76
--- NOTE | 2024-01-04 16:46 | P.PN ---
Progress Note - Text Progress Note Date: 01/04/24 - Chief Complaint Abdominal pain - History of Present Illness This is a pleasant 78-year-old patient, chronic stable medical conditions include COPD, hypertension, rheumatoid arthritis. Patient is active smoker. Patient with 3 days been having increasing abdominal pain. Presented to the ER. CT scan showed free air. Patient was taken to the OR yesterday by Dr. Lentz. Underwent exploratory laparotomy. Found to have a perforated sigmoid d iverticulitis. Sigmoid colectomy with end colostomy was done. Today in the ICU: Extubated earlier today. 2 L nasal cannula. Has NG tube to suction. No output in the colostomy bag. Son at the bedside. Pain at the surgical site. December 10: Patient moved out of the ICU. NG tube to intermittent suction. Did not sleep well yesterday. States when she tries to close her eyes she starts hallucinating. Given one-time dose of Haldol. Having significant pain at the operative site. Pain medications per surgical team. No output through colostomy bag. Discussed with nurse. Sons at the bedside. Also added Nicorette gum as needed. Hypoglycemia: Change IV fluids to D5.45. Patient on IV cefepime and IV Flagyl. December 11: NG tube in place. Plan for it to be discontinued this afternoon. Very little output from the colostomy bag. Did sleep her last night.'s some hallucinations. Discussed with the patient's son. Try to cut back on IV narcotics balance between pain control and side effects. December 12: NG tube was discontinued yesterday. Remains NPO per surgery. No output from the colostomy bag. Did not sleep well last night. Chewing gum ordered. Remains on IV cefepime. IV Flagyl. For blood pressure start Catapres patch 0.2. December 13: Patient be started on clear liquids by surgery. Some stool from the colostomy bag. Pain better. Pain switched over to oral pain medications. Abdominal wound cultures growing E. coli and alphahemolytic Streptococcus. Remains on IV cefepime and IV Flagyl. Abdominal pain better. December 14: Patient having dark stool output through the colostomy bag. Did sit up in a chair. On full liquid diet. Patient requested to have a home dose of Percocet as opposed to [place]. Ordered. Blood pressure running high. Increase Lopressor to 50 mg twice daily. December 15: Patient advance to low fiber diet today. Eating some. Abdominal pain much better. Colostomy bag working. 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 December 16: Patient complaining of increasing abdominal pain. More distention. Some stool from the colostomy bag. Patient made NPO. On antibiotics. CT scan abdomen ordered. December 17: Continues to have abdominal pain. NG tube to suction. Some stool in the colostomy bag. CT scan from yesterday showed partial versus complete bowel obstruction. December 18: Abdominal pain present. NG tube to suction. Some stool in the colostomy bag. On IV cefepime and IV Flagyl. Tired. December 19: Improvement in abdominal pain. No secondary perforation. Was felt to be partial obstruction. NG tube remains in place. Remains NPO. Patient had some chest pain this afternoon. Troponins were ordered. Cardiology was ordered. Telemetry. December 20: Patient seen by cardiology. [place] to be type II VA. 2D echo. No IV heparin. Patient having abdominal pain. NG tube remains in place. NPO. Patient was started IV peripheral nutrition. December 21: Feeling better. Decreased pain. Decreased distention. Some bowel movement in the colostomy bag. NG tube to suction. Getting peripheral nutrition. December 22: Reclining in bed. Decreased abdominal pain. Stool in the colostomy bag. NG tube to suction. Getting PPN. Fluid overload clinically and on chest x-ray. Give IV Lasix 20 mg x 2 doses December 23: Putting stool out of the colostomy bag. Decreased abdominal pain. NG tube to suction. Getting PPN. Abdominal pain is much better. Received IV Lasix x 2 doses yesterday. Edema and breathing much better. On antibiotics. Up in a recliner December 24: This is a 78-year-old female who has been followed by Dr. Elizabeth admitted for perforated sigmoid diverticulitis went for surgical repair/sigmoid colectomy with end colostomy. Patient continues on the medical floor remains n.p.o. with an NG tube in place. Repeat abdominal CT shows concern for complete bowel obstruction there is stool noted in the colostomy. Patient has positive bowel sounds throughout. She continues on antibiotics in the form of IV cefepime and IV Flagyl remains on parenteral nutrition. She received a dose of IV Lasix one- time yesterday. Potassium today 3.3. Sodium 133. 12/25/2023 Patient evaluated today resting in bed. She is reporting some increased abdominal pain and overall not feeling well. She is currently undergoing a repeat abdominal CT scan and has received the contrast. NG tube remains in place currently clamped. She does have positive bowel sounds and has some small amount of brown stool in the ostomy. Patient received a dose of IV Lasix 2 days ago for the small bilateral pleural effusions which are essentially stable at this time. Her sodium level is 133. Remains on TPN. 12/26/2023 Patient evaluated today resting in bed. She continues to report abdominal discomfort and today states that she feels nauseous. Zofran has been ordered. There continues to be a small amount of stool in the ostomy bag. A repeat abdominal pelvis CT was completed showing decrease in dilated loops of bowel throughout the abdomen comparing to immediate priors. Oral contrast extends to the rectum correlate for ileus and/or partial bowel obstruction. NG tube remains in place with output of 100 MLS overnight of gastric drainage. Patient remains on IV Flagyl and IV cefepime. Remains on TPN. 12/27/2023 Patient is evaluated today sitting up at the bedside. She is continue to have stool through the ostomy. NG tube has removed today and patient is started on clear liquid diet. He remains hyponatremic this is likely from the TPN. Remains on IV cefepime and IV Flagyl. She reports that her nausea has resolved. 12/28/2023 Patient on the medical floor, has been up to the bathroom and able to take a shower today. NG tube remains out and patient continues on clear liquid diet. No reports of nausea overnight. Abdominal pain is managed and continues on morphine and percocet. Remains on TPN as patient had difficulty with advancing diet to full liquid. 12/29/2023 Patient evaluated today sitting up in the chair. Has increased output from the ostomy and increased urine output. No shortness of breath no chest pain no nausea vomiting or diarrhea. NG tube has been out patient is been maintained on a clear liquid diet states that she is having difficulty with a full liquid diet feels like it is getting stuck and she is unable to swallow it down. 12/30/2023 Patient is evaluated today sitting up in the chair. She is underwent modified barium swallow yesterday revealing esophageal stricture and subsequently underwent an EGD with biopsy and dilation with general surgery. She has been upgraded to a full liquid diet and states that she has tolerated it well this morning. General surgery recommending to continue on the TPN until patient is tolerating increased oral intake. Her sodium today is improved to 134 renal function remains stable. She is making adequate stool from the ostomy. 12/31/2023 Patient evaluated today sitting up in the chair. Tolerating full liquid diet. Continues on TPN pending increasing oral intake. Sodium remains stable at 134. Continues to have adequate stool from the ostomy. Hemodynamically she is stable. 01/01/2024 Patient eval today sitting up in the chair. She is not reporting any abdominal discomfort and is tolerating a full liquid diet at this time. She is hoping this can be upgraded to a soft diet. She continues on TPN for the meantime until she has increased oral intake. She is making stool from the ostomy. She will be discharged to subacute rehab once stable from a surgical aspect. Her labs today show a sodium level of 134, BUN 20, creatinine 0.46, potassium 4.1. Magnesium 1.9. Her blood glucoses in the 120s. Remains afebrile and on room air. January 02: Sitting up in a chair. Was on a liquid diet. Advance to low fiber diet by surgery today. Patient's morphine was discontinued yesterday. Patient does complain of a headache but appears rather comfortable. Doing stuff on her cell phone. Stool present in the ostomy bag. Patient reported and OT noted to walk about 130 feet with a rolling walker January 03: Feeling much better. No headache. On a smart phone. Tolerating diet better. Colostomy working. Did walk with a walker. Hoping to get discharged to rehab tomorrow. Minimal to no abdominal pain. January 04: Sitting up in a recliner. Eating better. Colostomy is working. Looking into going to rehab. Patient being switched over to Omnicef and Flagyl per ID. Active Medications Albuterol Sulfate (Albuterol Nebulized 2.5 Mg/3 Ml) 2.5 mg INHALATION RT-Q4H PRN PRN Reason: Shortness Of Breath Albuterol/Ipratropium (Ipratropium-Albuterol 3 Ml Neb) 3 ml INHALATION RT-Q2H PRN PRN Reason: Shortness Of Breath Or Wheezing Albuterol/Ipratropium (Ipratropium-Albuterol 3 Ml Neb) 3 ml INHALATION RT-QID [facility] Last Admin: 01/04/24 15:45 Dose: 3 ml Atorvastatin Calcium (Atorvastatin 20 Mg Tab) 20 mg PO DAILY [facility] Last Admin: 01/04/24 08:55 Dose: 20 mg Baclofen (Baclofen 10 Mg Tab) 10 mg PO HS [facility] Last Admin: 01/03/24 21:43 Dose: 10 mg Benzocaine (Benzocaine [place] 1 Can) 1 spray MUCOUS MEM QID PRN; Protocol PRN Reason: Mouth Irritation Last Admin: 12/28/23 16:04 Dose: 1 spray Benzocaine/Menthol (Benzocaine/Menthol Lozeng 1 Each Lozenge) 1 each MUCOUS MEM Q4HR PRN PRN Reason: Sore Throat Last Admin: 12/22/23 17:06 Dose: 1 each Budesonide/Formoterol Fumarate (Symbicort 160-4.5 Mcg Inhaler) 2 puff INHALATION RT-BID [facility] Last Admin: 01/04/24 08:13 Dose: 2 puff Cefdinir (Cefdinir 300 Mg Cap) 300 mg PO BID [facility]; Protocol Last Admin: 01/04/24 08:58 Dose: 300 mg Al Hydroxide/Mg Hydroxide 30 ml/ Diphenhydramine HCl 75 mg/Lidocaine HCl 30 ml 0 ml PO TID [facility] Last Admin: 01/04/24 15:35 Dose: 5 ml Dextrose/Water (Dextrose 50% Syringe 50 Ml) 25 ml IVP PER PROTOCOL PRN; Protocol PRN Reason: Hypoglycemia Last Admin: 12/17/23 19:34 Dose: 25 ml Dextrose/Water (Dextrose 50% Syringe 50 Ml) 50 ml IVP PER PROTOCOL PRN; Protocol PRN Reason: Hypoglycemia Heparin Sodium (Porcine) (Heparin Sodium,Porcine 5,000 Unit/Ml 1 Ml Vial) 5,000 unit SQ Q8HR [facility] Last Admin: 01/04/24 15:35 Dose: 5,000 unit Hydroxychloroquine Sulfate (Hydroxychloroquine Sulfate 200 Mg Tab) 200 mg PO BID [facility] Last Admin: 01/04/24 08:58 Dose: 200 mg Lactated Ringer's (Lactated Ringers) 1,000 mls @ 20 mls/hr IV .Q24H [facility] Last Admin: 01/04/24 08:49 Dose: Not Given Losartan Potassium (Losartan 50 Mg Tab) 50 mg PO DAILY [facility] Last Admin: 01/04/24 08:54 Dose: 50 mg Metoprolol Tartrate (Metoprolol Tartrate 50 Mg Tab) 100 mg PO BID [facility] Metronidazole (Metronidazole 500 Mg Tab) 500 mg PO TID [facility]; Protocol Last Admin: 01/04/24 15:34 Dose: 500 mg Miscellaneous Information (Magnesium Replacement Protocol 1 Each Misc) 1 each MISCELLANE DAILY PRN; Protocol PRN Reason: Per Protocol Miscellaneous Information (Potassium Replacement Protocol 1 Each Misc) 1 each MISCELLANE DAILY PRN; Protocol PRN Reason: Per Protocol Montelukast Sodium (Montelukast 10 Mg Tab) 10 mg PO DAILY [facility] Last Admin: 01/04/24 08:55 Dose: 10 mg Naloxone HCl (Naloxone 0.4 Mg/Ml 1 Ml Vial) 0.2 mg IV Q2M PRN PRN Reason: Opioid Reversal Nicotine (Nicotine 21mg/24hr Patch) 1 patch TRANSDERM DAILY [facility] Last Admin: 01/04/24 08:54 Dose: 1 patch Nicotine Polacrilex (Nicotine Gum (Polacrilex) 2 Mg Gum) 2 mg BUCCAL Q4HR PRN PRN Reason: Nicotine Cravings Ondansetron HCl (Ondansetron 4 Mg/2 Ml Vial) 4 mg IVP Q6HR PRN PRN Reason: Nausea And Vomiting Last Admin: 12/26/23 11:44 Dose: 4 mg Oxycodone/Acetaminophen (Oxycodone-Apap 7.5-325mg 1 Each Tab) 1 each PO Q6H PRN PRN Reason: Pain Last Admin: 01/04/24 15:33 Dose: 1 each Pantoprazole Sodium (Pantoprazole 40 Mg Tablet) 40 mg PO AC-BID [facility] Last Admin: 01/04/24 08:54 Dose: 40 mg Petrolatum (Zinc Oxide Paste (Z-Guard) 1 Applic) 1 applic TOPICAL BID PRN; Protocol PRN Reason: Wound Healing Last Admin: 12/23/23 02:21 Dose: 1 applic Temazepam (Temazepam 15 Mg Cap) 15 mg PO HS PRN PRN Reason: Insomnia Last Admin: 01/03/24 21:42 Dose: 15 mg Social history: Patient been smoking for many years. Was up to 4 packs a day. Now down to a pack a day. Works at [employer]. Lives with her son. Physical examination: VITAL SIGNS: 98, 66, 18, 113 x 63, 99% room air GENERAL: Up in a recliner, comfortable EYES: Pupils equal. Conjunctiva normal HEENT: External appearance of nose and ears normal, oral cavity grossly normal. Diminished hearing in the right ear. NG tube to suction NECK: JVD not raised; masses not palpable. HEART: First and second heart sounds are normal; no edema. LUNGS:[ Respiratory rate normal diminished breath sounds. ABDOMEN: Soft, no tenderness,, no guarding rigidity, liver spleen not palpable, no masses palpable. Left-sided colostomy bag-with stool PSYCH: [Alert and oriented x3; mood and affect anxious. MUSCULOSKELETAL:No Clubbing/cyanosis;muscles-grossly intact INVESTIGATIONS, reviewed in the clinical context: January 04: Potassium 3.8 creatinine 0.55 January 03: Potassium 3.9 creatinine 0.45 January 02: Sodium 133 potassium 4.2 creatinine 0.51 albumin 2.0 2D echocardiogram [December 21] EF 65 to 70%. Severe concentric hypertrophy. Moderate AI. And some calcification. CT scan abdomen [December 16]: Evidence of possibly complete bowel obstruction possibly December 16: White count 12.7 hemoglobin 11.9 Abdominal wound culture: E. coli and alphahemolytic Streptococcus. December 09: White count 10.8 hemoglobin 10.9 platelets 254 sodium 135 potassium 3.8 BUN 20 creatinine 0.61 Chest x-ray film personally reviewed by me-hyperinflation Telemetry strip bedside monitor: Personally reviewed by me. Sinus rhythm CT scan abdomen pelvis: Moderate prominence of the stomach. Severe wall thickening of the gastric antrum. Distal colonic diverticulosis. Free air identified anterior to the bladder. Assessment and plan: -Acute sigmoid diverticulitis with perforation. Cultures growing E. coli and alphahemolytic Streptococcus: Worsening abdominal symptoms today.: Slow to respond Patient underwent sigmoid resection and formation of her colostomy on December [address] scan abdomen [December 16:] Possibly near complete bowel obstruction. NG tube with suction: removed IV cefepime and p.o. Flagyl. stool in the colostomy bag. low fiber diet being tolerated -Anterior chest wall pain. Non-ST elevation VA. Type II. Troponin positive at 0.167 with no rise and fall. Telemetry. Cardiology following. - hypertensive heart disease. Severe LVH on echo. -Severe hypokalemia: Replace Replace potassium -Secondary peritonitis from hollow viscus perforation IV cefepime and poFlagyl. ID following -COPD and a current smoker DuoNeb 3 times daily. Singulair.. Breztri inhaler -Chronic nicotine dependence, cigarette smoker Nicotine patch -Hyperlipidemia Lipitor 20 mg a day -Severe protein calorie malnutrition. BMI 17.4 Did receive peripheral nutrition Ensure -Chronic muscle spasm Baclofen as needed -Peptic ulcer disease PPI -Hypoglycemia from poor oral intake: Resolved -Peripheral nutrition: Discontinued -Essential hypertension. Lopressor to 50 mg twice daily Cozaar to 50 mg a day -Insomnia with hallucinations. Restoril. Better. Pending discharge to rehab. Antibiotics per ID. Thank you Dr. Lentz Past Medical History Past Medical History: COPD, Hypertension, Rheumatoid Arthritis (RA) Additional Past Medical History / Comment(s): bleeding ulcer History of Any Multi-Drug Resistant Organisms: None Reported Past Surgical History: Tubal Ligation Additional Past Surgical History / Comment(s): Eye surgery (cataracts removed). Past Anesthesia/Blood Transfusion Reactions: No Reported Reaction Past Psychological History: No Psychological Hx Reported Smoking Status: Current every day smoker Past Alcohol Use History: Rare Past Drug Use History: None Reported
--- NOTE | 2024-01-04 18:43 | P.PN ---
Subjective Progress Note Date: 01/04/24 The patient is seen today December 25, 2019 for follow-up on the regular medical floor. She is sitting up in bed. Awake and alert in no acute distress. Denies any worsening shortness of breath, cough or congestion. She is maintaining good O2 saturations in the 90s on room air. Chest x-ray reveals small bilateral effusions. Evidence of COPD. Nasogastric tube in good position. Right-sided PICC line in place. Follow-up CT scan of the abdomen pelvis revealed decrease in dilated loops of bowel throughout the abdomen compared to previous. Oral contrast extends to the rectum. Dilated bowel to 2.5 cm remains present. No transition point definitively visualized. Correlate for ileus and/or partial bowel obstruction. The gastric tube remains to wall suction. She remains on TPN for nutritional support. Remains on cefepime and Flagyl. Continued on bronchodilators. Sodium 133. Potassium 4.0. Bicarb 30. BUN 21. Creatinine 0.43. Glucose 95. The patient is seen today December 26, 2023 in follow-up on the regular medical floor. She is sitting up in bed. Awake and alert in no acute distress. She is maintaining good O2 saturations in the 90s on room air. Nasogastric tube remains in place. She is receiving TPN at 52 MLS per hour for nutritional support. She is continued on antibiotics in the form of cefepime and Flagyl. He is continued on bronchodilators. NicoDerm patch in place. Count 8.2. Hemoglobin 10.4. Platelets 294. Sodium 133. Potassium 3.7. Bicarb 29. BUN 18. Creatinine 0.42. Glucose 116. The patient is seen today December 27, 2023 in follow-up on the regular medical floor. She is currently resting comfortably in bed. Awake and alert in no acute distress. Maintaining O2 saturations in the 90s on room air. She is continued to have intermittent abdominal discomfort. Abdominal x-ray reveals that the air noted on the previous exam appeared to be superficial to the patient and likely within the ostomy bag. Contrast stenosis is seen to extend into the colon. Small bilateral pleural effusions. Nasogastric tube has been removed. Sodium 132. Potassium 5.0. Bicarb 27. BUN 27. Creatinine 0.55. Glucose 125. He remains on antibiotics in the form of cefepime and Flagyl. Continued on bronchodilators. NicoDerm patch in place. Heparin for DVT prophylaxis. The patient is seen today December 28, 2023 in follow-up on the regular medical floor. She is awake and alert in no acute distress. She has been up ambulating in the hallway and in her room with physical therapy assistance. Currently sitting up in a chair. Denies any worsening shortness of breath, cough or congestion. She is maintaining O2 saturations in the 90s on room air. Her nasogastric tube is out. She is being nursed with TPN at 52 mL/h. Remains on antibiotics in the form of cefepime and Flagyl. Continued on bronchodilators. Heparin for DVT prophylaxis. The patient is seen today December 29, 2023 in follow-up on the regular medical floor. She is sitting up in a chair. Awake and alert in no acute distress. She denies any worsening shortness of breath, cough or congestion. She is maintaining O2 saturations in the 90s on room air. She has been advanced to clear liquid diet. She remains with supplemental nourishment and TPN at 52 MLS per hour. She is continued on cefepime and Flagyl. DuoNeb ventilations, Pulmicort and perform scintillations, Singulair. Heparin for DVT prophylaxis. NicoDerm patch in place. Progress note dated December 30, 2023. 78-year-old female who has not been in the hospital for 22 days. She is seen today room 456. She appears to be doing much better. She continues on cefepime and Flagyl. She had an EGD done today. She is on room air. She is not receiving any IV fluids. She is getting TPN at 52 cc an hour. The NG tube was removed a few days ago. Laboratory data includes a sodium 134, potassium 4.2, c hlorides 109, CO2 25, BUN 22, creatinine 0.53. Glucose is 137. Magnesium 2, phosphorus 3.3, and calcium 7.9. Previous culture data includes anaerobic gram- negative bacilli 2 different species, from December 08, and a wound culture that was positive for both Escherichia coli, and alphahemolytic Streptococcus. The EGD today, showed mild stricture of the distal esophagus, and mild gastritis. The patient did undergo biopsy, and dilatation. Progress note dated December 31, 2023. 78-year-old female has been in the hospital now for 23 days. The patient is currently on room air. She is not receiving any IV fluids, other than her TPN at 52 cc an hour. She continues on cefepime and Flagyl. Clinically, she looks well, and she states that she may be discharged, on Tuesday. Current labs inclu de a sodium 134, potassium 4.4, chlorides 109, CO2 26, BUN 20, creatinine 0.53. Calcium is 7.9. Phosphorus 3.2, and magnesium 1.9. Progress note dated January 01, 2024. The patient is seen today in room 456. 78-year-old female who is now been in the hospital for 24 days. She continues on room air. She is getting TPN at 52 cc an hour. She continues on Flagyl, and cefepime. She is sitting in a chair next to her hospital bed. She is not having any respiratory issues at this time. He is hoping to be discharged in the next day or 2. Sodium 134, potassium 4.1, chlorides 107, CO2 27, BUN 20, creatinine 0.46. Glucose is 133. Albumin is 2.0. On today's evaluation of 01/02/2024, the patient is being seen for a follow-up. Calm and comfortable sitting up in a chair on room air oxygen. No signs of any significant respiratory distress. The patient is still recovering from abdominal surgery. The patient originally had a perforated sigmoid diverticulitis patient underwent sigmoid colectomy and end colostomy. She was also found to have a mild stricture in the distal esophagus upon his subsequent EGD and some mild gastritis and this was completed on 12/30/2023. Currently, she still on TPN for nutrition support. Her colostomy is functional. There is output in the colostomy bag.Her sodium level is at 133 with a potassium level of 4.2, BUN is at 19 with a creatinine of 0.5 and potassium level is at 4.2. Bicarb is at 27. LFTs are normal. She remains on DuoNeb updrafts, she is on Symbicort, she remains on IV cefepime and Flagyl. The intra-abdominal culture showed anaerobes and this was collected on 12/08/2023. No interval worsening in her condition. She is quite weak and cachectic and her body mass index is 17.4. On today's evaluation of 01/03/2024, the patient is doing well. The patient is tolerating diet. She had [employer] toast earlier this morning and she had a full breakfast. Her colostomy is functional. No nausea vomiting or abdominal pain. No other new complaints otherwise for now. She remains on IV cefepime and Flagyl. No nausea. No fever. No shortness of breath. The blood work from today shows a sodium level of 134, BUN is at 16 with a creatinine of 0.4. Patient is currently on room air oxygen. Using the incentive spirometer. She is also ambulating. On today's evaluation of 01/04/2024, the patient has no specific complaints. Tolerating diet. Labs are all stable. BUN is at 18 with a creatinine of 0.55 and his sodium level is 134. She is on room air oxygen with a pulse ox of 99%. The patient has no other specific complaints. The patient was seen by the general surgical team. The patient will likely get discharged to [facility] [place]. Discharge planning is in progress for now. The patient will need to go on DuoNe updrafts and incentive spirometer. The patient will also complete a course of Omnicef on outpatient basis. This will be in combination with Flagyl. Objective - Vital Signs Vital signs: Vital Signs Temp 98.6 F 01/04/24 07:26 Pulse 72 01/04/24 08:24 Resp 19 01/04/24 07:26 BP 127/68 01/04/24 07:26 Pulse Ox 97 01/04/24 07:26 FiO2 30 12/09/23 10:00 Intake & Output 01/03/24 01/04/24 01/04/24 18:59 06:59 18:59 Output Total 200 Balance -200 Weight 42.5 kg Output: Stool 200 Other: Voiding Method Toilet Toilet # Voids 1 6 ABP, PAP, CO, CI - Last Documented Arterial Blood Pressure 119/92 - Exam GENERAL EXAM: Awake, sitting up in bed, 78-year-old female, on room air, in no apparent distress. The patient is currently on room air oxygen HEAD: Normocephalic. EYES: Sluggish reaction of pupils, equal size. NOSE: Clear with pink turbinates. THROAT: Nasogastric tube secured in place. No erythema or exudates. NECK: No masses, no JVD. CHEST: No chest wall deformity. LUNGS: Equal air entry with faint crackles in the posterior bases. CVS: S1 and S2 normal with no audible murmur, regular rhythm. ABDOMEN: Abdominal dressing dry and intact. Left abdominal ostomy output is present. Bowel sounds are hypoactive SPINE: No scoliosis or deformity SKIN: No rashes CENTRAL NERVOUS SYSTEM: Sedated, tone is normal in all 4 extremities. EXTREMITIES: Right radial arterial line in place there is no peripheral edema. No clubbing, no cyanosis. Peripheral pulses are intact. - Labs CBC & Chem 7: 12/29/23 07:55 01/04/24 06:04 Labs: Abnormal Lab Results - Last 24 Hours (Table) 01/03/24 01/04/24 Range/Units 18:27 06:04 Sodium 134 L (137-145) mmol/L Chloride 108 H (98-107) mmol/L BUN 18 H (7-17) mg/dL POC Glucose (mg/dL) 126 H (70-110) mg/dL Calcium 8.2 L (8.4-10.2) mg/dL Assessment and Plan Plan: Severe acute abdominal pain secondary to perforated sigmoid diverticulitis. Status post exploratory laparotomy, sigmoid colectomy, end colostomy on December 08, 2023. Most recent CT scan of the abdomen reveals ileus versus partial small bowel obstruction. The patient had intra-abdominal sepsis with anaerobes and E. coli and alphahemolytic strep and the patient remains on a combination of cefep kandis and Flagyl. Clinically stable. Hemodynamically stable. Patient is tolerating diet and TPN has been discontinued, and the patient's colostomy is functional at this point in time Acute hypoxemic respiratory failure secondary to above requiring prolonged ventilation. The patient has recovered from her respiratory failure and the patient is currently on room air oxygen Severe protein calorie malnutrition with a BMI of less than 20 kg/m. History of gastric ulcers and esophagitis. Patient was also found to have a mild distal esophageal stricture. History of rheumatoid arthritis. History of chronic obstructive pulmonary disease. History of chronic tobacco dependence. History of hypertension. History of hyperlipidemia. History of gastroesophageal reflux disease. Plan: Clinically improved and the patient is to be discharged to [facility] Encouraged use of incentive spirometer Increase mobility Continue Omnicef and Flagyl orally on outpatient basis Patient is taking regular diet Continue DuoNeb updrafts Continue Symbicort Discharged to [facility] on the [place] for further rehabilitation.
[2024-01-04] MEDS ORDERED: METOPROLOL TARTRATE 50 MG TAB PO SCH (21:00)
== END 2024-01-04 17:18 | DRG 329 ==
LOC: EC 03:14 → 2CATHESU 04:19 → 3NCARDOBS 05:43 → 1SOBS 08:16 → 2SICU 09:14 → 3SCARD 12-10 08:07 → 4SSUR 12-16 23:30
PROVIDERS: ADMIT Surgery; ATTEND Surgery
PROC: 0D1N0Z4 Bypass Sigmoid Colon to Cutaneous, Open Approach (ICD-10-PCS; 2023-12-08)
PROC: 0D9670Z Drainage of Stomach with Drainage Device, Via Natural or Artificial Opening (ICD-10-PCS; 2023-12-08)
PROC: 0DTN0ZZ Resection of Sigmoid Colon, Open Approach (ICD-10-PCS; principal; 2023-12-08 08:15)
PROC: 02HV33Z Insertion of Infusion Device into Superior Vena Cava, Percutaneous Approach (ICD-10-PCS; 2023-12-19)
PROC: 3E0436Z Introduction of Nutritional Substance into Central Vein, Percutaneous Approach (ICD-10-PCS; 2023-12-19)
PROC: 0DB78ZX Excision of Stomach, Pylorus, Via Natural or Artificial Opening Endoscopic, Diagnostic (ICD-10-PCS; 2023-12-30)
PROC: 0D728ZZ Dilation of Middle Esophagus, Via Natural or Artificial Opening Endoscopic (ICD-10-PCS; 2023-12-30)
DX: K57.20 Diverticulitis of large intestine with perforation and abscess without bleeding (principal); E43 Unspecified severe protein-calorie malnutrition; J96.01 Acute respiratory failure with hypoxia; K65.1 Peritoneal abscess; K65.8 Other peritonitis; K56.609 Unspecified intestinal obstruction, unspecified as to partial versus complete obstruction; K56.691 Other complete intestinal obstruction; I5A Non-ischemic myocardial injury (non-traumatic); R18.8 Other ascites; E87.1 Hypo-osmolality and hyponatremia; Z68.1 Body mass index [BMI] 19.9 or less, adult; R44.3 Hallucinations, unspecified; M06.9 Rheumatoid arthritis, unspecified; J44.9 Chronic obstructive pulmonary disease, unspecified; K22.0 Achalasia of cardia; E88.A Wasting disease (syndrome) due to underlying condition; K22.2 Esophageal obstruction; I11.9 Hypertensive heart disease without heart failure; I65.29 Occlusion and stenosis of unspecified carotid artery; K27.9 Peptic ulcer, site unspecified, unspecified as acute or chronic, without hemorrhage or perforation; I08.0 Rheumatic disorders of both mitral and aortic valves; E87.6 Hypokalemia; F17.210 Nicotine dependence, cigarettes, uncomplicated; K29.70 Gastritis, unspecified, without bleeding; E83.42 Hypomagnesemia; M62.89 Other specified disorders of muscle; R33.9 Retention of urine, unspecified; E78.5 Hyperlipidemia, unspecified; M62.838 Other muscle spasm; E16.2 Hypoglycemia, unspecified; G47.00 Insomnia, unspecified; E87.70 Fluid overload, unspecified; M19.90 Unspecified osteoarthritis, unspecified site; B96.20 Unspecified Escherichia coli [E. coli] as the cause of diseases classified elsewhere; M54.30 Sciatica, unspecified side; B95.4 Other streptococcus as the cause of diseases classified elsewhere; K21.00 Gastro-esophageal reflux disease with esophagitis, without bleeding; K66.0 Peritoneal adhesions (postprocedural) (postinfection); Z87.11 Personal history of peptic ulcer disease; Z79.899 Other long term (current) drug therapy; Z79.891 Long term (current) use of opiate analgesic; Z88.0 Allergy status to penicillin; Z88.1 Allergy status to other antibiotic agents; Z88.8 Allergy status to other drugs, medicaments and biological substances; Z11.52 Encounter for screening for COVID-19; Z28.311 Partially vaccinated for COVID-19
CPT/HCPCS: 36415; 36573; 43239; 43249; 71045; 71046; 74018; 74019; 74021; 74177; 74230; 80048; 80053; 82150; 82330; 82805; 83605; 83690; 83735; 83880; 84100; 84132; 84478; 84484; 85025; 85610; 85730; 86140; 86850; 86900; 86901; 87070; 87075; 87077; 87186; 87205; 87636; 88305; 88307; 93005; 93306; 94002; 94003; 94640; 94760; 96365; 96366; 96375; 96376; 99291

== ENCOUNTER → 2024-06-19 | Outpatient (CLI) | payer MEDICARE ==
--- NOTE | 2024-07-17 13:35 | MR ---
Site ID synapse default Patient Latoya Dan L ID [id number] Age/Gender: 79Y, F Order # N/A Procedure MR cervical spine wo con Date 06/19/2024 5:41:30 PM EXAMINATION TYPE: MR cervical spine wo con DATE OF EXAM: 06/29/2024 COMPARISON: None HISTORY: Neck weakness, pain, headache TECHNIQUE: Multiplanar, multisequence images of the cervical spine were acquired without contrast. FINDINGS: Alignment: The cervical vertebral bodies have preserved heights. Reversal of the normal cervical lord osis. No spondylolisthesis. Dextrocurvature of the cervical spine with apex at C5. Bones: Bone signal is within normal limits. Multilevel degenerative disc disease is noted. Cord: The spinal cord is unremarkable with regards to their signal intensity and morphology. Discs: Multilevel disc desiccation is present. C2-C3: No significant disc pathology. The spinal canal is patent. No neural foraminal stenosis. C3-C4: No significant disc pathology. The spinal canal is patent. Left facet arthropathy with mild l eft neural foraminal stenosis. The right neural foramen is patent. C4-C5: Minimal broad-based disc bulge with annular fissure. No significant central canal stenosis. Mi ldly prominent posterior epidural fat. No neural foraminal stenosis. C5-C6: Disc osteophyte complex with mild central canal stenosis. Left facet arthropathy with minimal left neural foraminal stenosis. The right neural foramen is patent . C6-C7: No significant disc pathology. The spinal canal is patent. No neural foraminal stenosis. C7-T1: No significant disc pathology. The spinal canal is patent. No neural foraminal stenosis. Other: None. IMPRESSION: 1. Mild multilevel degenerative disc disease and facet arthropathy as described above. No evidence fo r disc herniation or significant spinal canal stenosis. 2. Dextrocurvature of the cervical spine with reversal of the normal cervical lordosis.
== END | disposition home or self-care (01) ==
LOC: RADMRIMAIN 18:29
PROVIDERS: ATTEND Internal Medicine Rheumatology
DX: M47.812 Spondylosis without myelopathy or radiculopathy, cervical region (principal); M50.30 Other cervical disc degeneration, unspecified cervical region
CPT/HCPCS: 72141

== ENCOUNTER 2024-06-30 15:23 | Emergency (ER) | payer MEDICARE ==
--- NOTE | 2024-07-25 08:28 | XR ---
Report Patient: Latoya aDn L Ordering Physician: Unknown, Unknown ID: [id number] Phone, Pager: Phone: N/A Pager: N/A : [phone] Age/Gender: 79Y, F Primary Location: N/A Procedure: XR chest 2V Study Date: 06/30/2024 4:57:00 PM EXAMINATION TYPE: XR chest 2V DATE OF EXAM: 06/30/2024 COMPARISON: 12/24/2023 HISTORY: 79 year-old female bilateral leg edema TECHNIQUE: AP and lateral views FINDINGS: Heart borderline in size. Mild diffuse interstitial density. No consolidation or pleural effusion. Sk infold projecting along the periphery of the right upper lobe. IMPRESSION: Borderline cardiomegaly and COPD. Interstitial density could reflect bronchitis or mild pulmonary vas cular congestion.
== END 2024-06-30 19:10 | disposition home or self-care (01) ==
LOC: EC 15:23
CPT/HCPCS: 71046; 93005; 99283

== ENCOUNTER → 2024-08-11 | Outpatient (CLI) | payer MEDICARE | END | disposition home or self-care (01) | LOC: LABWHC1 11:27 | PROVIDERS: ATTEND Psychiatry & Neurology Neurology | DX: G70.9 Myoneural disorder, unspecified (principal); M53.0 Cervicocranial syndrome | CPT/HCPCS: 36415; 82550; 85652; 86041; 86042; 86043; 86255 ==